=== PATIENT | female | born 1960 | race Caucasian/White ===

== ENCOUNTER 2019-05-05 10:50 | Inpatient (IN) | payer OTHER, BC, SELFPAY ==
[2019-05-05] VITALS (18 sets, daily range): BP systolic 113–142; BP diastolic 62–100; PULSE 61–96; RESP 15–26; TEMP 36.8–37.6; O2SAT 93–100; BMI 25.8
--- NOTE | 2019-05-05 10:53 | ED_ITS ---
Entered by Karena Woodruff, acting as scribe for HPI - Abdominal Pain General: Chief Complaint: Abdominal Pain Stated Complaint: ABD PAIN Time Seen by Provider: 05/05/19 11:06 Source: patient Mode of arrival: EMS Limitations: no limitations History of Present Illness: HPI narrative: 59 yo Female presents to ED with complaint of abdominal pain, nausea, and vomiting. Pt states that she was on the toilet and when she started throwing up she had horrible, screaming pain that will not stop. MD elicited complaint: abdominal pain Pain Consistency: constant Location: Suprapubic Severity: severe Pain scale (0-10): 10 Quality: cramping Exacerbating factors: nothing Relieving factors: nothing Associated Symptoms: Reports nausea and vomiting Review of Systems General: Reports: 10 or more systems reviewed and unremarkable except in HPI and below GI: Reports: abdominal pain, nausea and vomiting PFSH ED PFSH: Statuses (acute, chronic, etc) shown below reflect problem list status as previously entered and may not be historically accurate Medical History (Updated 05/05/19 @ 11:15 by Karena Woodruff) Mitral valve prolapse (Acute) Physical Exam Const: COMMON NORMALS: no apparent distress, average body habitus, oriented x3, no limitations, healthy appearing, alert and well nourished HENMT: COMMON NORMALS: normocephalic, head/scalp atraumatic, hearing grossly normal bilaterally, external ears normal, EAC's normal, TM's normal bilaterally, external nose normal, nasal mucous membranes and turbinates normal, moist oral mucous membranes, oropharynx normal, dentition normal and gingiva normal HEAD & SCALP: normocephalic and atraumatic NOSE: external nose normal and nasal mucous membranes and turbinates normal EXTERNAL EAR: Yes external ears normal EXTERNAL AUDITORY CANAL: EAC's normal TYMPANIC MEMBRANE: TM's normal bilaterally Eye: COMMON NORMALS: PERRL, EOMs intact bilaterally, conjunctivae normal, no scleral icterus, no papilledema, normal visual newberry by confrontation and fundi normal bilaterally CONJUNCTIVA: Yes conjunctivae normal PUPIL: Yes PERRL DIRECT OPHTHALMOSCOPY: Yes no papilledema and Yes fundi normal bilaterally Neck/C-Spine: COMMON NORMALS: full ROM, no lymphadenopathy, supple, no meningeal signs, no JVD, thyroid normal and no carotid bruits THYROID: thyroid normal Chest: COMMONS NORMALS: inspection of chest normal and palpation of chest normal Resp: COMMON NORMALS: normal respiratory effort, no retractions, no use of accessory muscles, clear to auscultation bilaterally and percussion normal AUSCULTATION: clear to auscultation bilaterally PERCUSSION: percussion normal Cardio: COMMON NORMALS: no JVD, regular rate, regular rhythm, S1 normal heart sound, S2 normal heart sound, no gallops, no clicks, no murmurs, no rub and peripheral pulses 2+ throughout RATE: regular rate RHYTHM: regular rhythm HEART SOUNDS: S1 normal and S2 normal PERIPHERAL PULSES: pulses 2+ throughout GI: COMMON NORMALS: normal to inspection, nondistended, normoactive bowel sounds, soft to palpation, non-tender, no hepatosplenomegaly, no masses and no bruits PALPATION: Yes soft and Yes no hepatosplenomegaly : COMMON NORMALS: Yes no CVA tenderness and Yes external appearance normal BLADDER/KIDNEY EXAM: Yes no CVA tenderness Back/Pelvis: COMMON NORMALS: no CVA tenderness, thoracic and lumbar spine normal to inspection, no thoracic nor lumbar tenderness, thoraco-lumbar ROM normal and straight leg raise negative bilaterally Extremity: COMMON NORMALS: normal to inspection, full ROM, normal capillary refill, no joint enlargement, no clubbing, cyanosis or edema, no calf tenderness and no pedal edema Neuro: COMMON NORMALS: oriented x3 SENSORIUM/ORIENTATION: Yes alert MENINGEAL SIGNS: Yes no meningeal signs Skin: COMMON NORMALS: no rashes or lesions noted, no wounds, skin turgor normal, no jaundice, no petechiae and no mottling GENERAL SKIN EXAM: no rashes or lesions noted and turgor normal Course Vital Signs: Vital signs: Vital Signs Temperature 98.4 F 05/05/19 10:54 Pulse Rate 62 05/05/19 11:10 Respiratory Rate 18 05/05/19 11:56 Blood Pressure 136/62 05/05/19 11:10 Pulse Oximetry 98 05/05/19 11:56 MDM - Abdominal Pain Lab Data: Labs: Lab Results 05/05/19 05/05/19 Range/Units 11:42 11:42 WBC 10.0 (4.0-10.0) 10^3/ uL RBC 4.70 (4.1-5.3) 10^6/u L Hgb 14.2 (11.5-15.3) g/dL Hct 43.9 (37.0-47.0) % MCV 93.4 (81-99) fL MCH 30.2 (28.0-34.0) pg MCHC 32.3 (30.0-36.0) g/dL RDW 12.9 (12.1-15.1) % Plt Count 261 (130-400) 10^3/c mm MPV 10.6 H (7.4-10.4) fL Neut % (Auto) 85.1 % Lymph % (Auto) 10.4 % Bel[place]ami % (Auto) 3.8 % Eos % (Auto) 0.2 % Baso % (Auto) 0.3 % Neut # (Auto) 8.6 H (1.8-7.7) 10^3/u L Lymph # (Auto) 1.0 (0.8-4.8) 10^3/u L [place]ami # (Auto) 0.4 (0.2-0.9) 10^3/u L Eos # (Auto) 0.0 (0.0-0.8) 10^3/u L Baso # (Auto) 0.0 (0.0-0.1) 10^3/u L Nucleated RBC % (a uto) 0 % Nucleated RBCs # 0.0 /100WBC Sodium 139 (136-145) mmol/L Potassium 3.6 (3.5-5.1) mmol/L Chloride 101 (98-107) mmol/L Carbon Dioxide 22 (22-29) mmol/L Anion Gap 19.6 H (5-19) BUN 11 (6-20) mg/dL Creatinine 0.8 (0.5-0.9) mg/dL GFR Calculation 73.4 L (90-130) mL/min Glucose 128 H (74-109) mg/dL Calcium 9.9 (8.6-10.0) mg/Dl Total Bilirubin 0.4 (0.15-1.2) mg/dL AST 19 (0-32) U/L ALT 12 (0-33) U/L Alkaline Phosphata se 107 H (35-105) IU/L Creatine Kinase 63 (26-192) U/L Total Protein 6.7 (6.6-8.7) g/dL Albumin 4.6 (3.5-5.2) g/dL Globulin 2.1 (1.3-4.6) g/dL Lipase 21 (13-60) U/L Imaging Data ^: CT Chest/Abd/Pelvis: Radiologist's impression: [facility] [address] [place] [address] CT Scan Report Signed Patient: Kathryn Marcus#: [id number] : 1960Acct:[id number] Age/Sex: 59 / FADM Date: 05/05/19 Loc: ER Attending Dr: Ordering Physician: Billy Estevez DO Date of Service: 05/05/19 Procedure(s): CT angio chest w abd pel w con Accession Number(s): [id number] cc: Billy Estevez DO~ PROCEDURE INFORMATION: Exam: CT Angiography Chest With Contrast Exam date and time: 05/05/2019 10:55 AM Age: 59 years old Clinical indication: Pain; Other: Abd wall; Additional info: Abd pain TECHNIQUE: Imaging protocol: Computed tomographic angiography of the chest with intravenous contrast. 3D rendering: MIP and/or 3D reconstructed images were created by the technologist. Total DLP: 1241.1 mGy-cm Radiation optimization: All CT scans at this facility use at least one of these dose optimization techniques: automated exposure control; mA and/or kV adjustment per patient size (includes targeted exams where dose is matched to clinical indication); or iterative reconstruction. Contrast material: OMNI 350; Contrast volume: 95 ml; Contrast route: RT AC; COMPARISON: No relevant prior studies available. FINDINGS: Pulmonary arteries: Normal. No pulmonary emboli. Aorta: Unremarkable. No aortic aneurysm. No aortic dissection. Lungs: Hyperaerated lungs consistent with mild COPD . Pleural space: Unremarkable. No pneumothorax. No pleural effusion. Heart: Mild calcified coronary artery disease. Spleen: One or more accessory splenules. Kidneys and ureters: Left renal cyst measuring >1.0 cm. Stomach and bowel: Bowel wall thickening in the rectum consistent with mild to moderate proctitis with diverticula versus rectal cancer with perirectal lymphadenopathy. Moderate diverticulosis. Moderate retained feces in redundant sigmoid colon, proximal to the area of rectal bowel wall thickening/rectal narrowing.. Periampullary duodenal diverticulum. Mild bowel wall thickening of the entire colon with or without inflammation in the pericolic fat most consistent with mild infectious colitis versus inflammatory bowel disease. Lymph nodes: Borderline 1.1 cm left periaortic lymphadenopathy, axial series 5, images 155-162. Possible metastatic disease. Bones/joints: Idiopathic S-shaped scoliosis. Moderate to severe multilevel spine degenerative changes including degenerative disc disease, spondylosis and facet degenerative changes. Soft tissues: Unremarkable. Other findings: Examination is limited secondary to motion artifact. One or more calcified pelvic phleboliths. CT/CT angio chest w abd pel w con IMPRESSION: 1. Bowel wall thickening in the rectum consistent with mild to moderate proctitis with diverticula versus rectal cancer with perirectal lymphadenopathy. 2. Moderate retained feces in redundant sigmoid colon, proximal to the area of rectal bowel wall thickening/rectal narrowing.. 3. Borderline 1.1 cm left para-aortic lymphadenopathy, axial series 5, images 155-162. Possible metastatic disease. 4. Mild bowel wall thickening of the entire colon with or without inflammation in the pericolic fat most consistent with mild infectious colitis versus inflammatory bowel disease. Radiation Dose CTDIVOL = (mGy): DLP = 1241.1 (mGy-cm) Dictated By: Saul Hu MD 05/05/19 1158 Signed By: Saul Hu MD 05/05/19 1200 Discharge Plan Discharge Prescriptions: No Action No Known Home Medications RF: 0 Coding Level of Care Code ED Civil Lawyer for Chg Fwd Exam Problem Focused The documentation recorded by the Ranjan melo Carmen, accurately reflects the service I personally performed and the decisions made by Zenaida soni Donald P, DO May 05, 2019 10:50
[2019-05-05] MEDS: fentaNYL 50 mcg/mL INJ 2mL 100 MCG IVP (11:07)
[2019-05-05] MEDS: ondansetron 2 mg/ML SDV 2 mL 4 MG IV (11:08)
[2019-05-05] MEDS: fentaNYL 50 mcg/mL INJ 2mL IVP (11:29)
[2019-05-05] MEDS: ondansetron 2 mg/ML SDV 2 mL 4 MG IVP ×3 (11:31→19:31)
--- NOTE | 2019-05-05 11:36 | USR_ITS ---
PROCEDURE INFORMATION: Exam: US Abdomen Limited, Right Upper Quadrant Exam date and time: 05/05/2019 12:24 PM Age: 59 years old Clinical indication: Abdominal pain; Additional info: Abd pain TECHNIQUE: Imaging protocol: Real-time ultrasound of the abdomen with image documentation. Examination was focused on the right upper quadrant. COMPARISON: No relevant prior studies available. FINDINGS: Liver: 12.6 cm liver. Gallbladder: 2.2 mm gallbladder wall. Common bile duct: 6.8 mm common bile duct which is slightly dilated. MRCP may be helpful to rule out choledocholithiasis or periampullary mass. Pancreas: 2.1 mm pancreatic duct. Right kidney: 11.1 x 4.4 x 4.4 cm right kidney. 1 cm right renal cortex. Inferior vena cava: 2.2 cm IVC. US/US gall bladder 34855 IMPRESSION: 6.8 mm common bile duct which is slightly dilated. MRCP may be helpful to rule out choledocholithiasis or periampullary mass.
[2019-05-05 11:50] LABS: Basophils % 0.3 %; Eosinophils % 0.2 %; Hematocrit 43.9 % (37.0-47.0); Hemoglobin 14.2 g/dL (11.5-15.3); Lymphocytes % 10.4 %; Mean Corpuscular HGB Conc 32.3 g/dL (30.0-36.0); Mean Corpuscular Hemoglobin 30.2 pg (28.0-34.0); Mean Corpuscular Volume 93.4 fL (81-99); Mean Platelet Volume 10.6 fL (7.4-10.4); Monocytes # 0.4 10^3/uL (0.2-0.9); Monocytes % 3.8 %; Neutrophils # 8.6 10^3/uL (1.8-7.7); Neutrophils % 85.1 %; Nucleated Red Blood Cells % 0 %; Platelet Count 261 10^3/cmm (130-400); Red Cell Distribution Width 12.9 % (12.1-15.1)
[2019-05-05] MEDS: HYDROmorphone 1 mg/mL INJ 1 mL IVP ×4 (11:56→19:31)
[2019-05-05 12:10] LABS: Alanine Aminotransferase 12 U/L (0-33); Albumin Level 4.6 g/dL (3.5-5.2); Alkaline Phosphatase 107 IU/L (35-105); Anion Gap 19.6 (5-19); Aspartate Amino Transferase 19 U/L (0-32); Blood Urea Nitrogen 11 mg/dL (6-20); Calcium 9.9 mg/Dl (8.6-10.0); Carbon Dioxide 22 mmol/L (22-29); Chloride 101 mmol/L (98-107); Creatine Phosphokinase 63 U/L (26-192); Globulin 2.1 g/dL (1.3-4.6); Glomerular Filtration Rate 73.4 mL/min (90-130); Glucose 128 mg/dL (74-109); Lipase 21 U/L (13-60); Potassium 3.6 mmol/L (3.5-5.1); Sodium 139 mmol/L (136-145); Total Bilirubin 0.4 mg/dL (0.15-1.2); Total Protein 6.7 g/dL (6.6-8.7)
[2019-05-05 12:11] LABS: Lactate (Lactic Acid level) 2.8 mmol/L (0.5-2.2)
[2019-05-05 13:16] LABS: Bilirubin Urine Neg (NEGATIVE); Blood Urine Neg (Negative); Glucose Urine UA Norm (Normal); Ketones Urine Negative (Negative); Leukocyte Esterase Urine Negative (Negative); Nitrate Urine Negative (Negative); Protein Urine Neg (Negative); Sulfosalicylic Acid Urine Negative; Urine Appearance Clear (CLEAR); Urine Color Yellow (Yellow); Urobilinogen Urine Norm (Negative); pH Urine 9 (5-7)
[2019-05-05 13:18] LABS: Add Urine Culture? No; Mucus Urine 1+; Squamous Epithelial Cell Urine 0-4 (0-5)
[2019-05-05 13:49] LABS: Carcinoembryonic Antigen 14.4 ng/mL (0.0-4.7)
[2019-05-05] MEDS: iohexol 350 mg/mL 100 mL Btl IV (14:20)
[2019-05-05] MEDS: morphine 4 mg/mL SDV 1 mL 2 MG IV ×2 (14:28→22:32)
--- NOTE | 2019-05-05 14:29 | PM.HP ---
Providers/Chief Complaint Admitting Physician: Dave Rodriguez MD Chief Complaint: ABD PAIN History of Present Illness Kathryn Marcus is a 59 year old female with a past medical history of gout who presents to the emergency room for a 6-week history of abdominal pain, constipation, rectal pain. Patient states that 6 weeks ago, she started to develop constipation, normally she has a few bowel movements a day, she stated that she started to develop very thin soft bowel movements, difficult to pass, feelings of incomplete emptying, bowel movements with blood, generalized abdominal pain. Patient states that her symptoms persisted for the last 6 weeks, were intermittent, but became more frequent, such that she would have extreme difficulty passing bowel movements, very thin bowel movements, regular bloody bowel movements, poor appetite, malaise, abdominal pain. Denies history of colonoscopy. Denies family history of colon cancer. Denies history of ulcerative colitis or Crohn's disease. Denies difficulty swallowing. Denies painful swallowing. Drinks plenty of water. Drinks well water. No recent fever cough infection. No recent sick contacts. No history of food poisoning. Patient states that in the last 24 hours pain became very severe, very painful bowel movements, but patient states that oddly the bowel her bowel movements are fairly soft and thin. Is never had an issue with constipation or bloody bowel movements in the past. Has not seen her primary care physician in many years. In the emergency room as patient was having severe abdominal pain radiating to the back, she was taken immediately to the CT to rule out abdominal aortic aneurysm, no abdominal aortic aneurysm, was wall was found to have rectal thickening with proctitis, bowel wall thickening, moderate stool retention, and periaortic lymphadenopathy. She was given fentanyl and Dilaudid, but still in significant pain. Review of Systems Const: Reports: change in appetite and malaise; Denies: fever or chills ENMT: Denies: painful swallowing or nasal discharge Card: Denies: chest pain Resp: Denies: shortness of breath, productive cough or non-productive cough GI: Reports: abdominal pain, nausea, feeling full early, constipation, cramping, change in bowel habits, painful bowel movements, rectal pain, change in stool character, blood in stool and mucus in stool; Denies: vomiting, vomiting blood, coffee grounds in vomit, difficulty swallowing, heartburn/indigestion, diarrhea, bloating, belching, fecal incontinence, rectal swelling, rectal itching or black tarry stool : Denies: flank pain Musc: Reports: back pain Skin/Breast: Denies: rash Neuro: Reports: dizziness; Denies: headache Endo: Reports: excessive thirst; Denies: excessive urination Coy/Lymph: Denies: easy bruising Medications/Allergies Home Medications Medication Instructions Recorded Confirmed Last Taken Type No Known Home Medications 05/05/19 05/05/19 Unknown History Allergies Allergy/AdvReac Type Severity Reaction Status Date / Time Penicillins Allergy ALGY-Anaphy Verified 05/05/19 11:06 laxis PFSH Acute PFSH: Statuses (acute, chronic, etc) shown below reflect problem list status as previously entered and may not be historically accurate Medical History (Updated 05/05/19 @ 14:43 by Dave Rodriguez MD) Gout (Acute) Mitral valve prolapse (Acute) Surgical History (Updated 05/05/19 @ 14:36 by Dave Rodriguez MD) History of appendectomy (Acute) History of bilateral tubal ligation (Acute) Family History (Updated 05/05/19 @ 14:37 by Dave Rodriguez MD) Other CAD (coronary artery disease) Denies family history of Diabetes Hyperlipidemia Cancer Hypertension Social History (Updated 05/05/19 @ 14:37 by Dave Rodriguez MD) Smoking and tobacco status: never smoked Alcohol intake: current Alcohol intake frequency: holidays/special occasions only Substance/Drug Use: never Vitals/I&O/Wt Last Vital Signs Temp 98.7 F 05/05/19 14:10 Pulse 86 05/05/19 14:10 Resp 22 H 05/05/19 14:10 BP 142/86 05/05/19 14:10 Pulse Ox 94 05/05/19 14:10 Weight last 48 hrs Weight 79.379 kg Physical Exam Const: EXAM LIMITATIONS: no altered mental status GENERAL APPEARANCE: cooperative and in distress (Lying in bed, holding her abdomen with, abdominal pain) HENMT: COMMON NORMALS: normocephalic Eye: COMMON NORMALS: PERRL and EOMs intact bilaterally Neck/C-Spine: COMMON NORMALS: no lymphadenopathy and no JVD Lymph: LYMPHATIC: no lymphadenopathy noted Resp: COMMON NORMALS: normal respiratory effort, no use of accessory muscles and clear to auscultation bilaterally Cardio: COMMON NORMALS: no JVD, S1 normal heart sound, S2 normal heart sound and no gallops GI: COMMON NORMALS: normal to inspection, nondistended, normoactive bowel sounds INSPECTION: Yes abdominal distension AUSCULTATION: Yes hypoactive bowel sounds PALPATION: Yes tender Details: LLQ, RLQ, LUQ and RUQ and Yes no hepatosplenomegaly : COMMON NORMALS: Yes no CVA tenderness Back/Pelvis: THORACIC SPINE/UPPER BACK: Yes normal to inspection LUMBAR SPINE/LOWER BACK: Yes lumbar spinal tenderness and Yes paraspinal muscle tenderness Extremity: COMMON NORMALS: normal capillary refill, no clubbing, cyanosis or edema and no pedal edema Neuro: COMMON NORMALS: oriented x3, CN's II-XII intact bilaterally and moves all extremities Psych: COMMON NORMALS: mental status grossly normal and thought process normal Skin: COMMON NORMALS: no rashes or lesions noted Data Imaging^: CT Abd/Pel: Radiologist's impression: 1. Bowel wall thickening in the rectum consistent with mild to moderate proctitis with diverticula versus rectal cancer with perirectal lymphadenopathy. 2. Moderate retained feces in redundant sigmoid colon, proximal to the area of rectal bowel wall thickening/rectal narrowing.. 3. Borderline 1.1 cm left para-aortic lymphadenopathy, axial series 5, images 155-162. Possible metastatic disease. 4. Mild bowel wall thickening of the entire colon with or without inflammation in the pericolic fat most consistent with mild infectious colitis versus inflammatory bowel disease. A&P Assessment and plan (1) Abdominal pain: - CT scan showed 1.Bowel wall thickening in the rectum consistent with mild to moderate proctitis with diverticula versus rectal cancer with perirectal lymphadenopathy. 2. Moderate retained feces in redundant sigmoid colon, proximal to the area of rectal bowel wall thickening/rectal narrowing.. 3. Borderline 1.1 cm left para-aortic lymphadenopathy, axial series 5, images 155-162. Possible metastatic disease. 4. Mild bowel wall thickening of the entire colon with or without inflammation in the pericolic fat most consistent with mild infectious colitis versus inflammatory bowel disease. -Clinically patient has thin stools, bloody stools, feeling of incomplete emptying, constipation, severe abdominal pain -CEA is 14.4 -Findings are highly concerning for rectal cancer -No family history of rectal or colon cancer, no family history or personal history of ulcerative colitis or Crohn's disease Plan: -Surgery on consult, hopefully colonoscopy in the next 48 hours -We will try MiraLAX, rectal suppositories -Pain control -IV fluids -Clear liquid diet Status: Acute Code(s): R10.9 - Unspecified abdominal pain Attestations Medical Necessity Statement*: Patient requires hospitalization, inpatient, greater than 2 midnights for abdominal pain secondary to bowel wall thickening, prostatitis, rectal thickening, possible rectal cancer Coding Level of Care Code Acute Market Risk Manager for Michael Lilly Diagnoses Abdominal pain R10.9
[2019-05-05] MEDS: dextrose 5%-sod chloride 0.9% 1,000 ML 100 ML IV ×2 (14:30→16:48)
[2019-05-05 15:03] LABS: C Reactive Protein 14.4 mg/L (0.0-4.9)
[2019-05-05 15:56] LABS: Erythrocyte Sedimentation Rate 12 mm/hr (0-15)
[2019-05-05] MEDS: enoxaparin 40 mg/0.4 mL Syringe SUBCUT (16:41)
[2019-05-05] MEDS: Fleet Enema 133 mL Enema 118 ML PR (16:49)
[2019-05-05] MEDS: mineral oil ENEMA 133 mL PR (19:47)
[2019-05-05] MEDS: acetaminophen 325 mg Tablet 650 MG PO (22:31)
[2019-05-06] VITALS (14 sets, daily range): BP systolic 101–109; BP diastolic 59–71; PULSE 90–95; RESP 17–22; TEMP 36.9–38.2; O2SAT 95–100
[2019-05-06] MEDS: dextrose 5%-sod chloride 0.9% 1,000 ML 100 ML IV ×2 (01:03→12:29)
[2019-05-06] MEDS: HYDROmorphone 1 mg/mL INJ 1 mL IVP ×4 (01:10→17:50)
[2019-05-06] MEDS: ondansetron 2 mg/ML SDV 2 mL 4 MG IVP ×4 (01:25→17:50)
[2019-05-06] MEDS: morphine 4 mg/mL SDV 1 mL 2 MG IV ×3 (05:33→14:00)
[2019-05-06 06:39] LABS: Basophils % 0.2 %; Hematocrit 40.3 % (37.0-47.0); Hemoglobin 13.1 g/dL (11.5-15.3); Lymphocytes # 0.9 10^3/uL (0.8-4.8); Lymphocytes % 4.7 %; Mean Corpuscular HGB Conc 32.5 g/dL (30.0-36.0); Mean Corpuscular Hemoglobin 30.7 pg (28.0-34.0); Mean Corpuscular Volume 94.4 fL (81-99); Monocytes # 0.8 10^3/uL (0.2-0.9); Monocytes % 4.2 %; Neutrophils # 17.8 10^3/uL (1.8-7.7); Neutrophils % 90.4 %; Nucleated Red Blood Cells % 0 %; Platelet Count 202 10^3/cmm (130-400); Red Blood Count 4.27 10^6/uL (4.1-5.3); Red Cell Distribution Width 13.2 % (12.1-15.1); White Blood Count 19.7 10^3/uL (4.0-10.0)
[2019-05-06 07:00] LABS: Alanine Aminotransferase 11 U/L (0-33); Albumin Level 3.6 g/dL (3.5-5.2); Alkaline Phosphatase 97 IU/L (35-105); Anion Gap 13.8 (5-19); Aspartate Amino Transferase 20 U/L (0-32); Blood Urea Nitrogen 10 mg/dL (6-20); Carbon Dioxide 26 mmol/L (22-29); Chloride 101 mmol/L (98-107); Globulin 2.8 g/dL (1.3-4.6); Glomerular Filtration Rate 64.1 mL/min (90-130); Glucose 126 mg/dL (74-109); Magnesium 2.2 mg/dL (1.7-2.3); Phosphorus 3.3 mg/dL (2.5-4.5); Potassium 3.8 mmol/L (3.5-5.1); Sodium 137 mmol/L (136-145); Total Bilirubin 0.5 mg/dL (0.15-1.2); Total Protein 6.4 g/dL (6.6-8.7)
[2019-05-06 07:38] LABS: Procalcitonin 0.85 ng/mL (0-0.8)
[2019-05-06] MEDS: polyethylene glycol 3350 Pkt 17 gm PO (08:57)
[2019-05-06] MEDS: docusate sodium 100 mg Capsule PO (08:57)
--- NOTE | 2019-05-06 11:08 | PM.CONSULT ---
Providers/Reason For Consult Consulting Physican/Specialty*: Dave Rodriguez MD Reason for Consult*: Abdominal pain with constipation Attending Physician: Dave Rodriguez MD History of Present Illness History of Present Illness Kathryn Marcus is a 59 year old female who presented to the ER yesterday with worsening generalized abdominal pain and constipation. Patient states that until about 2 months ago she used to have 2-3 bowel movements a day but recently has been a bowel movement every other day. Patient denies any fevers chills. She states that she has noticed blood in the stools but she attributed to her hemorrhoids. Patient denies any family history of colon cancer. No prior colonoscopy. She states that she is lost about 20 to 30 pounds. She was admitted overnight with the goal of trying to perform a bowel prep with plan for colonoscopy. Unfortunately today her abdominal pain worsened and her white count went up from 10 K to 19 K. Review of Systems Const: Denies: fever, chills, change in weight or fatigue Eyes: Denies: change in vision ENMT: Denies: painful swallowing Card: Denies: chest pain Resp: Denies: shortness of breath : Denies: painful urination Skin/Breast: Denies: rash, nipple discharge or breast mass/lump Neuro: Denies: seizure-like activity Coy/Lymph: Denies: easy bruising Meds/Allergies Home Medications and Allergies Home Medications Medication Instructions Recorded Confirmed Type No Known Home Medications 05/05/19 05/05/19 History Allergies Allergy/AdvReac Type Severity Reaction Status Date / Time Penicillins Allergy ALGY-Anaphy Verified 05/05/19 11:06 laxis Current Medications Current Medications Generic Name Dose Route Start Last Admin Trade Name Freq PRN Reason Stop Dose Admin Acetaminophen 650 mg 05/05/19 15:45 05/05/19 22:31 Tylenol PO 650 mg Q6H PRN Administration Mild/Mod Pain Or Temp >/= 101 Docusate Sodium 100 mg 05/06/19 09:00 05/06/19 08:57 Colace PO 100 mg DAILY SUSAN Administration Enoxaparin Sodium 40 mg 05/05/19 16:00 05/05/19 16:41 Lovenox SUBCUT 40 mg Q24H SUSAN Administration Hydromorphone HCl 1 mg 05/05/19 16:15 05/06/19 08:54 Dilaudid Inj IVP 1 mg Q2H PRN Administration BREAKTHROUGH PAIN Dextrose/Sodium Chloride 1,000 mls @ 100 mls/hr 05/05/19 15:45 05/06/19 05:24 Dextrose 5%-Sod Chloride 0.9% IV 100 mls/hr .Q10H SUSAN Infusion Morphine Sulfate 2 mg 05/05/19 15:50 05/06/19 09:34 Morphine IV 2 mg Q4H PRN Administration SEVERE PAIN Ondansetron HCl 4 mg 05/06/19 01:19 05/06/19 09:35 Zofran IVP 4 mg Q4H PRN Administration vomiting, or N/V if npo Polyethylene Glycol 17 gm 05/06/19 09:00 05/06/19 08:57 Miralax PO 17 gm DAILY SUSAN Administration PFSH Acute PFSH: Statuses (acute, chronic, etc) shown below reflect problem list status as previously entered and may not be historically accurate Medical History Gout (Acute) Mitral valve prolapse (Acute) Surgical History History of appendectomy (Acute) History of bilateral tubal ligation (Acute) Family History Other CAD (coronary artery disease) Denies family history of Diabetes Hyperlipidemia Cancer Hypertension Social History Smoking and tobacco status: never smoked Alcohol intake: current Alcohol intake frequency: holidays/special occasions only Substance/Drug Use: never Vitals/I&O/Wt Last Vital Signs Temp 99.0 F 05/06/19 07:47 Pulse 90 05/06/19 07:47 Resp 17 05/06/19 09:34 BP 104/64 05/06/19 07:47 Pulse Ox 98 05/06/19 09:34 05/05/19 05/06/19 05/06/19 22:59 06:59 14:59 Intake Total 671.667 / 1555.000 883.333 / 1555.000 220 / 220 Output Total 200 / 200 Balance 671.667 / 1555.000 883.333 / 1555.000 Weight last 48 hrs Weight 175 lb Physical Exam Narrative: EXAM NARRATIVE: HEENT: Normocephalic Eye: Sclera /conjunctiva normal Respiratory and chest: Bilateral clear breath sounds on auscultation Cardiovascular: Normal S1 and S2 heart sounds Abdomen: Soft, nondistended, tender in the left lower quadrant with guarding Neurological: Oriented to place person and time Skin: Intact, no lesions appreciated on gross exam Data Micro: Micro: Microbiology 05/05/19 17:49 Occult Blood (FIT) - Final Stool Imaging^: CT Abd/Pel: My impression: Radiologist's impression: PROCEDURE INFORMATION: Exam: CT Angiography Chest With Contrast Exam date and time: 05/05/2019 10:55 AM Age: 59 years old Clinical indication: Pain; Other: Abd wall; Additional info: Abd pain TECHNIQUE: Imaging protocol: Computed tomographic angiography of the chest with intravenous contrast. 3D rendering: MIP and/or 3D reconstructed images were created by the technologist. Total DLP: 1241.1 mGy-cm Radiation optimization: All CT scans at this facility use at least one of these dose optimization techniques: automated exposure control; mA and/or kV adjustment per patient size (includes targeted exams where dose is matched to clinical indication); or iterative reconstruction. Contrast material: OMNI 350; Contrast volume: 95 ml; Contrast route: RT AC; COMPARISON: No relevant prior studies available. FINDINGS: Pulmonary arteries: Normal. No pulmonary emboli. Aorta: Unremarkable. No aortic aneurysm. No aortic dissection. Lungs: Hyperaerated lungs consistent with mild COPD . Pleural space: Unremarkable. No pneumothorax. No pleural effusion. Heart: Mild calcified coronary artery disease. Spleen: One or more accessory splenules. Kidneys and ureters: Left renal cyst measuring >1.0 cm. Stomach and bowel: Bowel wall thickening in the rectum consistent with mild to moderate proctitis with diverticula versus rectal cancer with perirectal lymphadenopathy. Moderate diverticulosis. Moderate retained feces in redundant sigmoid colon, proximal to the area of rectal bowel wall thickening/rectal narrowing.. Periampullary duodenal diverticulum. Mild bowel wall thickening of the entire colon with or without inflammation in the pericolic fat most consistent with mild infectious colitis versus inflammatory bowel disease. Lymph nodes: Borderline 1.1 cm left periaortic lymphadenopathy, axial series 5, images 155-162. Possible metastatic disease. Bones/joints: Idiopathic S-shaped scoliosis. Moderate to severe multilevel spine degenerative changes including degenerative disc disease, spondylosis and facet degenerative changes. Soft tissues: Unremarkable. Other findings: Examination is limited secondary to motion artifact. One or more calcified pelvic phleboliths. 1. Bowel wall thickening in the rectum consistent with mild to moderate proctitis with diverticula versus rectal cancer with perirectal lymphadenopathy. 2. Moderate retained feces in redundant sigmoid colon, proximal to the area of rectal bowel wall thickening/rectal narrowing.. 3. Borderline 1.1 cm left para-aortic lymphadenopathy, axial series 5, images 155-162. Possible metastatic disease. 4. Mild bowel wall thickening of the entire colon with or without inflammation in the pericolic fat most consistent with mild infectious colitis versus inflammatory bowel disease. A&P Assessment and plan (1) Abdominal pain: This a 59-year-old female who presents to the ER with abdominal pain and constipation associated weight loss. Patient had findings concerning for possible mass/proctitis in the sigmoid/rectal region. Today she has a more tender abdomen associated with leukocytosis. We will therefore obtain a urgent CT abdomen and pelvis to rule out a perforation. If there is a perforation with an associated possible rectal mass, she would need transferred to [place] for evaluation by colorectal surgeon. 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
--- NOTE | 2019-05-06 12:24 | CT_ITS ---
WS: [id number] CT ABDOMEN PELVIS TECHNIQUE: Noncontrast CT of the abdomen and pelvis with coronal and sagittal reformatted images. CLINICAL INFORMATION: abdominal pain r/o perforation COMPARISON: Ultrasound gallbladder 1 DLP: 723.[address] scans at [facility] use at least one of these dose optimization techniques: automat ed exposure control; mA and/or kV adjustment per patient size (includes targeted exams where dose is matched to clinical indication); or iterative reconstruction. FINDINGS: Vicarious contrast excretion into the gallbladder from recent CTA. Noncontrast liver is normal. Promi nent pancreatic duct and common bile duct. This is unchanged from previous. No evidence of choledocho lithiasis or periampullary mass or lesion. Pancreatic head otherwise appears normal. 9 mm left periao rtic lymph node is unchanged. Small splenule. Tortuous sigmoid colon. Diffuse thickening and inflammatory stranding involving the distal descending left colon and sigmoid colon suspicious for infectious or inflammatory colitis or diverticulitis sim ilar to the prior examination. Suspected perforated diverticular abscess adjacent to the sigmoid colo n in the lower pelvis measuring 6.3 x 7.7 cm with air-fluid level. This is suspected to be extralumin al. This is adjacent to the sigmoid colon without definite continuity. Anatomy can be better defined with oral contrast. This is slightly smaller compared to yesterday. Small amount of free fluid in the pelvis. Lung bases are well aerated. Adrenal glands are normal. No hydronephrosis. Noncontrast spleen is norm al. Small esophageal hiatal hernia. No periaortic lymphadenopathy. Diffuse rectal wall thickening wit h multiple enlarged perirectal lymph nodes consistent with proctitis. Rectal neoplasm should be exclu ded. Perirectal lymphadenopathy. Inflammatory stranding and induration in the perirectal fat. Rectal wall thickening appears improved today. Persistent but slightly improved sigmoid constipation. Notified Dave Rodriguez MD at 05/06/2019 2:[address]/CT abdomen pelvis wo con [id number] IMPRESSION: 1. No evidence of choledocholithiasis or periampullary mass. 2. Suspected perforated diverticulitis with diverticular abscess measuring 6.3 x 7.7 CM. Dependent Air-fluid level in this area. This is slightly smaller com pared to yesterday. Exam could be repeated with oral contrast to better define anatomy 3. Again seen is diffuse rectal wall thickening which is improved from previou s with surrounding inflammatory stranding and edema in the perirectal fat and p ludiivna consistent with sigmoid colitis/diverticulitis and proctitis. 4. Multiple enlarged perirectal lymph nodes. Rectal neoplasm should be exclude d after treatment. 5. Slightly prominent left periaortic lymph node measuring 9 mm unchanged. 6. Small esophageal hiatal hernia. 7. Vicarious excretion of contrast in the gallbladder from recent CTA.
[2019-05-06] MEDS: ciprofloxacin 400 MG/200 ML PREMIX 200 MG IV (13:07)
[2019-05-06] MEDS: promethazine 25 mg/mL SDV 1 mL 12.5 MG IM (14:01)
--- NOTE | 2019-05-06 14:12 | P.TS_ITS ---
Transfer Summary Providers Date of Admission: 05/05/19 12:33 Date of Discharge: 05/06/19 Attending Provider at Admission: Dave Rodriguez MD Attending Provider at Transfer: Dave Rodriguez MD Anticipated Date of Transfer: Anticipated date of transfer: 05/06/19 Receiving Facility & Provider: Receiving Provider: [] Receiving facility: [] Diagnoses at Discharge Discharge Diagnosis (1) Rectal cancer: Status: Acute (2) Perforated diverticulum: Status: Acute Reason for Visit Reason for Visit: Reason For Visit: ABD PAIN Hospital Course Discharge Summary: Kathryn Marcus is a 59 year old female with a past medical history of gout who presents to the emergency room for a 6-week history of abdominal pain, constipation, rectal pain. Patient states that 6 weeks ago, she started to develop constipation, normally she has a few bowel movements a day, she stated that she started to develop very thin soft bowel movements, difficult to pass, feelings of incomplete emptying, bowel movements with blood, generalized abdominal pain. Patient states that her symptoms persisted for the last 6 weeks, were intermittent, but became more frequent, such that she would have extreme difficulty passing bowel movements, very thin bowel movements, regular bloody bowel movements, poor appetite, malaise, abdominal pain. Denies history of colonoscopy. Denies family history of colon cancer. Denies history of ulcerative colitis or Crohn's disease. Denies difficulty swallowing. Denies painful swallowing. Drinks plenty of water. Drinks well water. No recent fever cough infection. No recent sick contacts. No history of food poisoning. Patient states that in the last 24 hours pain became very severe, very painful bowel movements, but patient states that oddly the bowel her bowel movements are fairly soft and thin. Is never had an issue with constipation or bloody bowel movements in the past. Has not seen her primary care physician in many years. In the emergency room as patient was having severe abdominal pain radiating to the back, she was taken immediately to the CT to rule out abdominal aortic aneurysm, no abdominal aortic aneurysm, was wall was found to have 1.Bowel wall thickening in the rectum consistent with mild to moderate proctitis with diverticula versus rectal cancer with perirectal lymphadenopathy. 2. Moderate retained feces in redundant sigmoid colon, proximal to the area of rectal bowel wall thickening/rectal narrowing.. 3. Borderline 1.1 cm left para-aortic lymphadenopathy, axial series 5, images 155-162. Possible metastatic disease. 4. Mild bowel wall thickening of the entire colon with or without inflammation in the pericolic fat most consistent with mild infectious colitis versus inflammatory bowel disease. On admission, patient was found to have no significant fevers, no hypotension, no tachycardia, her CEA was 15, patient was admitted for abdominal pain, fecal impaction secondary to possible rectal cancer. Surgery was consulted advised of IV hydration, pain control, bowel regimen, and plan for colonoscopy. However the next morning, patient had worsening abdominal pain nausea, had 1 soft bowel movement, developed fevers, and leukocytosis of 19,000, repeat CT scan of her abdomen showed 1. Suspected perforated diverticulitis with diverticular abscess measuring 6.3 x 7.7 CM. Dependent Air-fluid level in this area. This is slightly smaller compared to yesterday. Exam could be repeated with oral contrast to better define anatomy 2. Again seen is diffuse rectal wall thickening which is improved from previous with surrounding inflammatory stranding and edema in the perirectal fat and pelvis consistent with sigmoid colitis/diverticulitis and proctitis. 3. Multiple enlarged perirectal lymph nodes. Rectal neoplasm should be excluded after treatment. 4. Slightly prominent left periaortic lymph node measuring 9 mm unchanged Surgery, Dr. Goff, was concerned for perforated rectal cancer, he advised to transfer for higher level of care, she was started on ciprofloxacin and Flagyl, [facility] was called for transfer, Dr. Burch accepted the transfer, patient was transferred by air [facility] to [facility]. Physical Exam Const: COMMON NORMALS: oriented x3 EXAM LIMITATIONS: no altered mental status GENERAL APPEARANCE: cooperative and in distress (Lying in bed, holding her abdomen with, abdominal pain) HENMT: COMMON NORMALS: normocephalic HEAD & SCALP: normocephalic Eye: COMMON NORMALS: PERRL and EOMs intact bilaterally PUPIL: Yes PERRL Neck/C-Spine: COMMON NORMALS: no lymphadenopathy and no JVD Lymph: LYMPHATIC: no lymphadenopathy noted Resp: COMMON NORMALS: normal respiratory effort, no use of accessory muscles and clear to auscultation bilaterally AUSCULTATION: clear to auscultation bilaterally Cardio: COMMON NORMALS: no JVD, S1 normal heart sound, S2 normal heart sound and no gallops HEART SOUNDS: S1 normal and S2 normal GI: COMMON NORMALS: normal to inspection, nondistended, normoactive bowel sounds and no hepatosplenomegaly INSPECTION: Yes abdominal distension AUSCULTATION: Yes hypoactive bowel sounds PALPATION: Yes tender and Yes no hepatosplenomegaly : COMMON NORMALS: Yes no CVA tenderness BLADDER/KIDNEY EXAM: Yes no CVA tenderness Back/Pelvis: COMMON NORMALS: no CVA tenderness THORACIC SPINE/UPPER BACK: Yes normal to inspection LUMBAR SPINE/LOWER BACK: Yes lumbar spinal tenderness and Yes paraspinal muscle tenderness Extremity: COMMON NORMALS: normal capillary refill, no clubbing, cyanosis or edema and no pedal edema Neuro: COMMON NORMALS: oriented x3, CN's II-XII intact bilaterally and moves all extremities Psych: COMMON NORMALS: mental status grossly normal and thought process normal THOUGHT PROCESS: normal thought process Skin: COMMON NORMALS: no rashes or lesions noted GENERAL SKIN EXAM: no rashes or lesions noted TS Data Data Completed and Pending: Completed Studies During Hospitalization Category Date Time Status CT angio chest w abd pel w con Urge nt Cat Scan 05/05/19 10:53 Completed US gall bladder 7 [id number] Urgent Ultrasound 05/05/19 11:36 Completed Pending at discharge Category Date Time Status CT abdomen pelvis wo con [id number] Stat Cat Scan 05/06/19 12:24 Taken Calprotectin Feca l Stat Lab 05/05/19 17:49 Received Complete Blood Co unt w/Auto AM LABS Lab 05/07/19 04:00 Ordered Complete Blood Co unt w/Auto AM LABS Lab 05/08/19 04:00 Ordered Comprehensive Met abolic Panel AM LA BS Lab 05/07/19 04:00 Ordered Comprehensive Met abolic Panel AM LA BS Lab 05/08/19 04:00 Ordered Magnesium AM LABS Lab 05/07/19 04:00 Ordered Magnesium AM LABS Lab 05/08/19 04:00 Ordered Phosphorus AM LAB S Lab 05/07/19 04:00 Ordered Phosphorus AM LAB S Lab 05/08/19 04:00 Ordered Procalcitonin AM LABS Lab 05/07/19 04:00 Ordered Procalcitonin AM LABS Lab 05/08/19 04:00 Ordered Labs from last 24 hours 05/06/19 05/06/19 05/05/19 06:09 06:09 11:42 WBC 19.7 H RBC 4.27 Hgb 13.1 Hct 40.3 MCV 94.4 MCH 30.7 MCHC 32.5 RDW 13.2 Plt Count 202 MPV 11.0 H Neut % (Auto) 90.4 Lymph % (Auto) 4.7 Emmet % (Auto) 4.2 Eos % (Auto) 0.0 Baso % (Auto) 0.2 Neut # (Auto) 17.8 H Lymph # (Auto) 0.9 Emmet # (Auto) 0.8 Eos # (Auto) 0.0 Baso # (Auto) 0.0 Nucleated RBC % (a uto) 0 Nucleated RBCs # 0.0 ESR Sodium 137 Potassium 3.8 Chloride 101 Carbon Dioxide 26 Anion Gap 13.8 BUN 10 Creatinine 0.9 GFR Calculation 64.1 L Glucose 126 H Calcium 9.0 Phosphorus 3.3 Magnesium 2.2 Total Bilirubin 0.5 AST 20 ALT 11 Alkaline Phosphata se 97 C-Reactive Protein 14.4 H Total Protein 6.4 L Albumin 3.6 Globulin 2.8 Carcinoembryonic A g Procalcitonin 0.85 H 05/05/19 05/05/19 11:42 11:42 WBC RBC Hgb Hct MCV MCH MCHC RDW Plt Count MPV Neut % (Auto) Lymph % (Auto) Emmet % (Auto) Eos % (Auto) Baso % (Auto) Neut # (Auto) Lymph # (Auto) Emmet # (Auto) Eos # (Auto) Baso # (Auto) Nucleated RBC % (a uto) Nucleated RBCs # ESR 12 Sodium Potassium Chloride Carbon Dioxide Anion Gap BUN Creatinine GFR Calculation Glucose Calcium Phosphorus Magnesium Total Bilirubin AST ALT Alkaline Phosphata se C-Reactive Protein Total Protein Albumin Globulin Carcinoembryonic A g 14.4 H Procalcitonin Vitals: Last Vital Signs Temp 98.7 F 05/06/19 11:53 Pulse 91 05/06/19 11:53 Resp 18 05/06/19 14:00 BP 109/67 05/06/19 11:53 Pulse Ox 100 05/06/19 11:53 TS Medications Medications Home Medications No Known Home Medications 05/05/19 [History Confirmed 05/05/19] Active Medications Acetaminophen (Tylenol) 650 mg PO Q6H PRN PRN Reason: Mild/Mod Pain Or Temp >/= 101 Last Admin: 05/05/19 22:31 Dose: 650 mg Documented by: Docusate Sodium (Colace) 100 mg PO DAILY [facility] Last Admin: 05/06/19 08:57 Dose: 100 mg Documented by: Enoxaparin Sodium (Lovenox) 40 mg SUBCUT Q24H [facility] Last Admin: 05/05/19 16:41 Dose: 40 mg Documented by: Hydromorphone HCl (Dilaudid Inj) 1 mg IVP Q2H PRN PRN Reason: BREAKTHROUGH PAIN Last Admin: 05/06/19 12:26 Dose: 1 mg Documented by: Dextrose/Sodium Chloride (Dextrose 5%-Sod Chloride 0.9%) 1,000 mls @ 100 mls/hr IV .Q10H [facility] Last Admin: 05/06/19 12:29 Dose: 100 mls/hr Documented by: Ciprofloxacin/Dextrose (Cipro) 400 mg in 200 mls @ 200 mls/hr IV Q12H [facility]; Protocol Last Admin: 05/06/19 13:07 Dose: 200 mls/hr Documented by: Metronidazole (Flagyl Iv) 100 mls @ 100 mls/hr IV Q8H [facility] Metoclopramide HCl (Reglan) 5 mg IV Q6H PRN PRN Reason: NAUSEA AND VOMITING Morphine Sulfate (Morphine) 2 mg IV Q4H PRN PRN Reason: SEVERE PAIN Last Admin: 05/06/19 14:00 Dose: 2 mg Documented by: Ondansetron HCl (Zofran) 4 mg IVP Q4H PRN PRN Reason: vomiting, or N/V if npo Last Admin: 05/06/19 09:35 Dose: 4 mg Documented by: Polyethylene Glycol (Miralax) 17 gm PO DAILY [facility] Last Admin: 05/06/19 08:57 Dose: 17 gm Documented by: Promethazine HCl (Phenergan) 12.5 mg IM Q6H PRN PRN Reason: NAUSEA Last Admin: 05/06/19 14:01 Dose: 12.5 mg Documented by: Discharge Plan Discharge Patient Disposition: Xfer Other Condition: Stable Prescriptions: No Action No Known Home Medications RF: 0 Discharge Orders: Discharge Order (Routine); Ordered 05/06/19 Ordered By: Dave Rodriguez Referrals: Ciera Jeff MD [Family Provider] - Transfer Attestations Time Spent in Transfer Care*: less than 30 min Quality Metrics Clinical Quality Measures: During this hospital stay, did patient experience: None Coding Level of Care Code 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
== END 2019-05-06 18:03 | disposition short-term general hospital (02) | DRG 392 ==
LOC: ER 11:11 → MEDSURG 13:12
PROVIDERS: Admitting Provider Family Medicine; Emergency Provider Family Medicine; Family Provider Family Medicine; Visit Provider Family Medicine
DX: K57.80 Diverticulitis of intestine, part unspecified, with perforation and abscess without bleeding (principal); C20 Malignant neoplasm of rectum; R59.1 Generalized enlarged lymph nodes; K59.00 Constipation, unspecified; M10.9 Gout, unspecified
CPT/HCPCS: 36415; 71275; 74176; 74177; 76705; 80053; 81001; 82274; 82378; 82550; 83605; 83690; 83735; 83993; 84100; 84145; 85025; 85651; 86140; 96372; 96375; 99282; J0744; J1170; J1650; J2270; J2405; J2550; J3010; Q9967; S0030

== ENCOUNTER 2019-05-20 18:01 | Emergency (ER) | payer OTHER, BC, SELFPAY ==
[2019-05-20 18:08] VITALS: BP 132/66; PULSE 79; RESP 16; TEMP 36.6; O2SAT 97; BMI 22.1
--- NOTE | 2019-05-20 18:29 | CTR_ITS ---
PROCEDURE INFORMATION: Exam: CT Abdomen And Pelvis Without Contrast Exam date and time: 05/20/2019 6:45 PM Age: 59 years old Clinical indication: Other: No bowel movement; Prior surgery; Surgery date: 6+ months; Additional info: Abd pain TECHNIQUE: Imaging protocol: Computed tomography of the abdomen and pelvis without contrast. Total DLP: 635.41 mGy-cm Radiation optimization: All CT scans at this facility use at least one of these dose optimization techniques: automated exposure control; mA and/or kV adjustment per patient size (includes targeted exams where dose is matched to clinical indication); or iterative reconstruction. COMPARISON: CT abdomen pelvis wo con [id number] 05/06/2019 12:57 PM FINDINGS: Tubes, catheters and devices: Since the recent prior exam a new catheter or drain ends in the pelvis. A previously seen perforated bowel loop has been resected and there is a new sigmoid anastomosis. Liver: Normal. No mass. Gallbladder and bile ducts: Normal. No calcified stones. No ductal dilation. Pancreas: Normal. No ductal dilation. Spleen: Incidental splenule near the spleen. Adrenals: Normal. No mass. Kidneys and ureters: Normal. No hydronephrosis. Stomach and bowel: New left abdominal ostomy. Slightly increased fluid in the small bowel suggests an early ileus. No transition zone to indicate mechanical obstruction. Scattered diverticula in the distal half of the colon. No acute inflammation. Appendix: No evidence of appendicitis. Intraperitoneal space: Unremarkable. No free air. No significant fluid collection. Vasculature: Unremarkable. No abdominal aortic aneurysm. Lymph nodes: Unremarkable. No enlarged lymph nodes. Bladder: Unremarkable as visualized. Reproductive: The uterus is relatively small. Bones/joints: Scattered chronic degenerative disc disease in the lower thoracic and upper lumbar spine. Soft tissues: Unremarkable. CT/CT abdomen pelvis wo con [id number] IMPRESSION: 1. New pelvic postop changes including surgical drain, sigmoidectomy and new ostomy. 2. No abscess or significant free fluid. 3. Slightly increased small rizwana fluid suggests a minimal ileus the. No mechanical obstruction. Radiation Dose CTDIVOL = (mGy): DLP = 635.41 (mGy-cm)
[2019-05-20 19:33] LABS: Basophils # 0.1 10^3/uL (0.0-0.1); Basophils % 0.5 %; Eosinophils # 0.2 10^3/uL (0.0-0.8); Eosinophils % 1.9 %; Hematocrit 36.9 % (37.0-47.0); Hemoglobin 11.8 g/dL (11.5-15.3); Lymphocytes # 1.4 10^3/uL (0.8-4.8); Lymphocytes % 13.7 %; Mean Corpuscular Hemoglobin 29.6 pg (28.0-34.0); Mean Corpuscular Volume 92.7 fL (81-99); Monocytes # 0.6 10^3/uL (0.2-0.9); Monocytes % 6.1 %; Neutrophils # 7.7 10^3/uL (1.8-7.7); Neutrophils % 77.1 %; Nucleated Red Blood Cells % 0 %; Platelet Count 525 10^3/cmm (130-400); Red Blood Count 3.98 10^6/uL (4.1-5.3); Red Cell Distribution Width 13.1 % (12.1-15.1)
[2019-05-20 19:43] LABS: Alanine Aminotransferase 24 U/L (0-33); Alkaline Phosphatase 90 IU/L (35-105); Anion Gap 16.7 (5-19); Aspartate Amino Transferase 18 U/L (0-32); Blood Urea Nitrogen 13 mg/dL (6-20); Calcium 9.5 mg/Dl (8.6-10.0); Carbon Dioxide 27 mmol/L (22-29); Chloride 98 mmol/L (98-107); Globulin 3.6 g/dL (1.3-4.6); Glomerular Filtration Rate 85.6 mL/min (90-130); Glucose 104 mg/dL (74-109); Lipase 14 U/L (13-60); Potassium 3.7 mmol/L (3.5-5.1); Sodium 138 mmol/L (136-145); Total Bilirubin 0.3 mg/dL (0.15-1.2); Total Protein 6.6 g/dL (6.6-8.7)
[2019-05-20 20:13] VITALS: BP 131/79; BP 138/66; PULSE 84; PULSE 86; RESP 16; RESP 18; TEMP 36.8; O2SAT 97; O2SAT 99
--- NOTE | 2019-05-20 20:20 | PC.NURSE ---
Introduced self to patient and initiated vital signs. Pt is A&O x 4 and agreeable. Pt states that the reason for the ER visit today is due to low output into colostomy bag over the past 24 hours. Pt also has questions about output into JERI drain which is becoming milky Reassured patient of needs and will continue to monitor. Awaiting provider at bedside.
--- NOTE | 2019-05-20 20:25 | ED_ITS ---
Entered by Valarie Talley, acting as scribe for Kacey Maxwell Alec May 20, 2019 18:01 HPI - General Adult General: Chief complaint: General Medical Stated complaint: cancer/no stool output Time Seen by Provider: 05/20/19 20:20 Source: patient and family Mode of arrival: ambulatory History of Present Illness: HPI narrative: 59 y/o female presents to the ED with complaint of decreased colostomy output. Pt was recently seen and was dx with colonrectal cancer. She had to have an emergency colostomy placement, partial colon resection and had a JERI drain placed. She states she has had decreased output in the bag within the past 24 hours. Pt reports some mild, midline redness around the colostomy incision site and some change in the color of the drainage of the JERI tube. Pt denies any abd pain, swelling, fever or N/V. MD complaint: Inscision/colostomy check Onset (ago): hour(s) (24) Location: abdomen Radiation: non-radiation Severity: mild Quality: other (no pain) Associated symptoms: Deny chest pain, confusion, diaphoresis, dyspnea, headache(s), malaise, nausea, rash, palpitations, syncope or vomiting Review of Systems General: Reports: other (negative unless marked) Const: Denies: fever, chills, body aches, fatigue, malaise or diaphoresis Eyes: Denies: change in vision or blurry vision ENMT: Denies: throat pain, painful swallowing, hoarseness, ear pain, ear discharge, Change in hearing or nasal discharge Card: Denies: chest pain, palpitations, irregular heart rhythm, syncope, pre- syncope, shortness of breath on exertion or shortness of breath when lying down Resp: Denies: shortness of breath, productive cough, non-productive cough, wheezing, coughing up blood or chest congestion GI: Denies: nausea or vomiting : Denies: flank pain, painful urination, urinary frequency, urinary urgency, decreased urine ouput, urinary incontinence or blood in urine Musc: Denies: neck pain, back pain, extremity pain, extremity swelling, joint pain, joint swelling, joint warmth or joint stiffness Skin/Breast: Denies: rash or yellow skin Neuro: Denies: headache, numbness in extremities, weakness in extremities, changes in sensation, lack of coordination, difficulty walking, dizziness, vertigo or confusion Endo: Denies: excessive thirst, tired all the time, cold intolerance, excessive sweating, flushing or hot flashes Coy/Lymph: Denies: easy bruising, easy bleeding, petechiae or enlarged lymph nodes All/Imm: Denies: hives, throat swelling, tongue swelling, facial swelling or acute wheezing PFSH ED PFSH: Statuses (acute, chronic, etc) shown below reflect problem list status as previously entered and may not be historically accurate Medical History Gout (Acute) Mitral valve prolapse (Acute) Surgical History History of appendectomy (Acute) History of bilateral tubal ligation (Acute) History of bladder surgery (Acute) Family History Other CAD (coronary artery disease) Denies family history of Diabetes Hyperlipidemia Cancer Hypertension Social History Smoking and tobacco status: former smoker Alcohol intake: current Alcohol intake frequency: holidays/special occasions only Physical Exam Const: COMMON NORMALS: no apparent distress, oriented x3, no limitations, healthy appearing and well nourished EXAM LIMITATIONS: no altered mental status GENERAL APPEARANCE: cooperative, well kempt and well developed ORIENTATION/CONSCIOUSNESS: Yes awake HENMT: COMMON NORMALS: normocephalic, head/scalp atraumatic, hearing grossly normal bilaterally, external ears normal, EAC's normal, external nose normal and moist oral mucous membranes HEAD & SCALP: normal to inspection, normocephalic and atraumatic FACE & SINUS: normal facial exam and face symmetric NOSE: external nose normal and nares normal EXTERNAL EAR: Yes external ears normal EXTERNAL AUDITORY CANAL: EAC's normal MOUTH: oral and palatal mucosa normal and tongue normal Eye: COMMON NORMALS: PERRL, EOMs intact bilaterally, conjunctivae normal and no scleral icterus GENERAL EYE: normal appearance of both eyes and normal light reflex CONJUNCTIVA: Yes conjunctivae normal SCLERA: sclerae normal CORNEA: Yes corneas normal PUPIL: Yes PERRL DIRECT OPHTHALMOSCOPY: Yes normal light reflex Neck/C-Spine: COMMON NORMALS: full ROM, no lymphadenopathy, supple, no meningeal signs and no JVD GENERAL: Yes normal visual inspection and Yes trachea midline CERVICAL SPINE: Yes cervical ROM normal Chest: COMMONS NORMALS: inspection of chest normal and palpation of chest normal Resp: COMMON NORMALS: normal respiratory effort, no retractions, no use of accessory muscles and clear to auscultation bilaterally EFFORT & INSPECTION: Yes able to speak in complete sentences AUSCULTATION: clear to auscultation bilaterally Cardio: COMMON NORMALS: no JVD, regular rate, regular rhythm, S1 normal heart sound, S2 normal heart sound, no gallops, no clicks, no murmurs and no rub JUGULAR VENOUS DISTENTION: no JVD RATE: regular rate RHYTHM: regular rhythm HEART SOUNDS: S1 normal and S2 normal : COMMON NORMALS: Yes no CVA tenderness BLADDER/KIDNEY EXAM: Yes no CVA tenderness Back/Pelvis: COMMON NORMALS: no CVA tenderness, thoracic and lumbar spine normal to inspection, no thoracic nor lumbar tenderness and thoraco-lumbar ROM normal Extremity: COMMON NORMALS: normal to inspection, full ROM, normal capillary refill, no joint enlargement, no clubbing, cyanosis or edema and no calf tenderness Neuro: COMMON NORMALS: oriented x3, CN's II-XII intact bilaterally, moves all extremities, no focal motor deficits and no sensory deficits noted MENINGEAL SIGNS: Yes no meningeal signs Psych: COMMON NORMALS: mental status grossly normal, thought process normal, cooperative, affect normal, speech normal and activity/motor behavior normal APPEARANCE: Yes well kempt SPEECH: Yes normal speech THOUGHT PROCESS: normal thought process Course ED course: 2214 -nursing is had a difficult time placing an IV on the patient. The patient is refusing further sticks and wants her CT to be performed without contrast. She understands that this is suboptimal. She agrees to let nursing try again later if the CT scan is suboptimal and further evaluation is needed. Vital Signs: Vital signs: Vital Signs Temperature 97.9 F 05/20/19 23:36 Pulse Rate 87 05/20/19 23:36 Respiratory Rate 16 05/20/19 23:36 Blood Pressure 106/63 05/20/19 23:36 Pulse Oximetry 98 05/20/19 23:36 MDM - General Adult MDM Narrative: Medical decision making narrative: The case was reviewed with Dr. Sims consumer marketing manager for Dr. Burch who performed the patient surgery. He agreed that if the patient's not vomiting and having no abdominal pain, and she is having neither, she can be treated with clear liquids at home and advance her diet as tolerated. The patient is already had a ileus at one point during her hospitalization that was treated conservatively and resolved. The patient is already on Cipro and Flagyl. As long as the patient's Tre-Salcido drain was continuing to drain he did not want to do anything with that. The patient agreed to this plan and still declined a second attempt at an IV. She wanted to be discharged home but we did review in full the reasons for which to return to the ER such as pain, vomiting, fever or for any other concerns. She denied have any other questions and she did not want to proceed with any further IV attempts here. Lab Data: Attestation: I reviewed the patient's lab results. Labs: Lab Results 05/20/19 05/20/19 05/20/19 Range/Units 19:01 19:01 23:21 WBC 10.0 (4.0-10.0) 10^3/ uL RBC 3.98 L (4.1-5.3) 10^6/u L Hgb 11.8 (11.5-15.3) g/dL Hct 36.9 L (37.0-47.0) % MCV 92.7 (81-99) fL MCH 29.6 (28.0-34.0) pg MCHC 32.0 (30.0-36.0) g/dL RDW 13.1 (12.1-15.1) % Plt Count 525 H (130-400) 10^3/c mm MPV 10.0 (7.4-10.4) fL Neut % (Auto) 77.1 % Lymph % (Auto) 13.7 % [place] % (Auto) 6.1 % Eos % (Auto) 1.9 % Baso % (Auto) 0.5 % Neut # (Auto) 7.7 (1.8-7.7) 10^3/u L Lymph # (Auto) 1.4 (0.8-4.8) 10^3/u L [place] # (Auto) 0.6 (0.2-0.9) 10^3/u L Eos # (Auto) 0.2 (0.0-0.8) 10^3/u L Baso # (Auto) 0.1 (0.0-0.1) 10^3/u L Nucleated RBC % (a uto) 0 % Nucleated RBCs # 0.0 /100WBC Sodium 138 (136-145) mmol/L Potassium 3.7 (3.5-5.1) mmol/L Chloride 98 (98-107) mmol/L Carbon Dioxide 27 (22-29) mmol/L Anion Gap 16.7 (5-19) BUN 13 (6-20) mg/dL Creatinine 0.7 (0.5-0.9) mg/dL GFR Calculation 85.6 L (90-130) mL/min Glucose 104 (74-109) mg/dL Calcium 9.5 (8.6-10.0) mg/Dl Total Bilirubin 0.3 (0.15-1.2) mg/dL AST 18 (0-32) U/L ALT 24 (0-33) U/L Alkaline Phosphata se 90 (35-105) IU/L Total Protein 6.6 (6.6-8.7) g/dL Albumin 3.0 L (3.5-5.2) g/dL Globulin 3.6 (1.3-4.6) g/dL Lipase 14 (13-60) U/L Urine Color Dark yellow (Yellow) Urine Appearance Clear (CLEAR) Urine pH 5 (5-7) Ur Specific Gravit y 1.020 (1.005-1.030) Urine Protein Neg (Negative) Urine Glucose (UA) Norm (Normal) Urine Ketones Negative (Negative) Urine Occult Blood Neg (Negative) Urine Nitrate Negative (Negative) Urine Bilirubin Neg (NEGATIVE) Urine Urobilinogen 1 H (Negative) mg/dL Ur Leukocyte Crystal ase Negative (Negative) Urine RBC None (0-2) /hpf Urine WBC 0-4 H (0-5) /hpf Ur Squamous Epith Cells 5-10 H (0-5) Urine Bacteria Trace (NONE) Urine Mucus 1+ Imaging Data^: CT Abd/Pel: Radiologist's impression: [address] [place] [address] CT Scan Report Signed Patient: Kathryn Marcus Unit #: [id number] : 1960 Age/Sex: 59 / F ADM Date: 05/20/19 Loc: ER Room/Bed: Attending Dr: Ordering Provider/Ordering MD: Elias Shen MD Date of Service: 05/20/19 Procedure(s): CT abdomen pelvis con [id number] Accession Number(s): [id number] Report Number: [id number] PROCEDURE INFORMATION: Exam: CT Abdomen And Pelvis Without Contrast Exam date and time: 05/20/2019 6:45 PM Age: 59 years old Clinical indication: Other: No bowel movement; Prior surgery; Surgery date: 6+ months; Additional info: Abd pain TECHNIQUE: Imaging protocol: Computed tomography of the abdomen and pelvis without contrast. Total DLP: 635.41 mGy-cm Radiation optimization: All CT scans at this facility use at least one of these dose optimization techniques: automated exposure control; mA and/or kV adjustment per patient size (includes targeted exams where dose is matched to clinical indication); or iterative reconstruction. COMPARISON: CT abdomen pelvis con [id number] 05/06/2019 12:57 PM FINDINGS: Tubes, catheters and devices: Since the recent prior exam a new catheter or drain ends in the pelvis. A previously seen perforated bowel loop has been resected and there is a new sigmoid anastomosis. Liver: Normal. No mass. Gallbladder and bile ducts: Normal. No calcified stones. No ductal dilation. Pancreas: Normal. No ductal dilation. Spleen: Incidental splenule near the spleen. Adrenals: Normal. No mass. Kidneys and ureters: Normal. No hydronephrosis. Stomach and bowel: New left abdominal ostomy. Slightly increased fluid in the small bowel suggests an early ileus. No transition zone to indicate mechanical obstruction. Scattered diverticula in the distal half of the colon. No acute inflammation. Appendix: No evidence of appendicitis. Intraperitoneal space: Unremarkable. No free air. No significant fluid collection. Vasculature: Unremarkable. No abdominal aortic aneurysm. Lymph nodes: Unremarkable. No enlarged lymph nodes. Bladder: Unremarkable as visualized. Reproductive: The uterus is relatively small. Bones/joints: Scattered chronic degenerative disc disease in the lower thoracic and upper lumbar spine. Soft tissues: Unremarkable. CT/CT abdomen pelvis con [id number] IMPRESSION: 1. New pelvic postop changes including surgical drain, sigmoidectomy and new ostomy. 2. No abscess or significant free fluid. 3. Slightly increased small rizwana fluid suggests a minimal ileus the. No mechanical obstruction. Radiation Dose CTDIVOL = (mGy): DLP = 635.41 (mGy-cm) Dictated By: Ally Weiss MD Signed By: Ally Weiss MD Signed Date/Time: 05/20/192254 DD/ 53 Discharge Plan Discharge Patient Disposition: Home, Self-Care Clinical Impression: Adynamic ileus Condition: Stable Prescriptions: New Zofran 4 mg tablet 4 mg PO DAILY PRN (Reason: nausea and vomiting) 5 Days Qty: 20 RF: 0 Discharge Orders: Discharge Order (Routine); Ordered 05/20/19 Ordered By: Kacey Maxwell Referrals: Ciera Jeff MD [Family Provider] - Discharge Diet: Clear Liquid Discharge Activity: Increase activity as tolerated Patient Instructions: Abdominal Pain - Adult Activity Restrictions/Additional Instructions: Please return to the ER immediately for any of the signs or symptoms listed on your discharge instruction sheets, worsening/changing of your symptoms, you are not getting better as quickly as expected, or for ANY other cause or concerns. Please return to the ER for abdominal pain, vomiting, fever, or for any other cause for concern. Continue your current antibiotics. Discharge Date/Time: 05/20/19 23:39 Coding Level of Care Code ED Heavy Equipment Mechanic for Chg Fwd Exam Problem Focused The documentation recorded by the Mayank melo Ashley, accurately reflects the service I personally performed and the decisions made by Hans soni Eli N May 20, 2019 18:01
--- NOTE | 2019-05-20 20:42 | PC.NURSE ---
Tried to remove drainage from JERI drain unsuccessfully.
[2019-05-20] MEDS: iohexol 300 mg/mL 100 mL Btl IV (21:28)
--- NOTE | 2019-05-20 23:26 | PC.NURSE ---
[facility] nurses have attempted IV access. No success.
[2019-05-20 23:36] VITALS: BP 106/63; PULSE 87; RESP 16; TEMP 36.6; O2SAT 98
[2019-05-20 23:57] LABS: Urine Appearance Clear (CLEAR); Urine Color Dark Yellow (Yellow); pH Urine 5 (5-7)
[2019-05-20 23:58] LABS: Bacteria Urine TRACE; Bilirubin Urine Neg (NEGATIVE); Blood Urine Neg (Negative); Glucose Urine UA Norm (Normal); Ketones Urine Negative (Negative); Leukocyte Esterase Urine Negative (Negative); Mucus Urine 1+; Nitrate Urine Negative (Negative); Protein Urine Neg (Negative); Urobilinogen Urine 1 mg/dL (Negative); WBC Urine 0-4 /hpf (0-5)
== END 2019-05-20 23:39 | disposition home or self-care (01) ==
PROVIDERS: Emergency Medicine; Emergency Provider Emergency Medicine; Family Provider Family Medicine
DX: K56.0 Paralytic ileus (principal); Z87.891 Personal history of nicotine dependence
CPT/HCPCS: 36415; 74176; 80053; 81001; 83690; 85025; 99282; Q9967

== ENCOUNTER 2019-07-12 14:24 | Emergency (ER) | payer OTHER, BC, SELFPAY ==
[2019-07-12 14:29] VITALS: BP 122/75; PULSE 102; RESP 18; TEMP 36.7; O2SAT 97; BMI 20.3
--- NOTE | 2019-07-12 14:36 | ED_ITS ---
Entered by Carlos Randle LPN, acting as scribe for Maldonado Johnson DO HPI - Abdominal Pain General: Chief Complaint: Abdominal Pain Stated Complaint: abd pain, N/V/D Time Seen by Provider: 07/12/19 14:34 Source: patient Mode of arrival: ambulatory Limitations: no limitations History of Present Illness: HPI narrative: 59 yo female with Rectal Cancer cu rrently on oral and IV Chemo presents with c/o abd pain that started 3 days ago. She describes it as sharp in nature, located in the mid abd. It increases when she is voiding, denies burning with urination, but her abd pain increases while voiding. She was constipated until about 1000 this am when she had a BM that was massive , soft. She has a Colostomy in the left abdomen. She has had nausea w ith vomiting. She denies any fever, chills, cough, congestion. She has had Radiation, is done with that. Last Chemo treatment was 07/01/19, scheduled for next treatment 07/22/19, currently in a clinical trial. Family at bedside states pt has had intermittent issues of constipation and abd pain throughout her treatment. MD elicited complaint: abdominal pain Severity: moderate Quality: sharp Associated Symptoms: Reports constipation (now resolved), nausea and vomiting; Denies chills, coffee ground emesis, GI cramping, diarrhea, dysuria, fever(s), heartburn, hematochezia, hematuria, hematemesis, melena and syncope Review of Systems Const: Denies: fever, chills, body aches, fatigue, malaise or night sweats Eyes: Denies: change in vision or blurry vision ENMT: Denies: throat pain, oral sores/lesions, dental pain, nasal discharge or nasal congestion Card: Denies: chest pain, palpitations, irregular heart rhythm, edema, syncope, shortness of breath on exertion, shortness of breath when lying down or leg pain with exertion Resp: Denies: shortness of breath, productive cough, non-productive cough or wheezing GI: Reports: abdominal pain, nausea, vomiting and constipation (now resolved); Denies: vomiting blood, coffee grounds in vomit, difficulty swallowing, heartburn/indigestion, diarrhea, cramping, blood in stool or black tarry stool : Denies: flank pain, painful urination, urinary frequency, urinary urgency, urinary incontinence or blood in urine Musc: Denies: neck pain, back pain, extremity pain, extremity swelling, joint pain or joint swelling Skin/Breast: Denies: rash, itching or redness Neuro: Denies: headache, numbness in extremities, weakness in extremities, changes in sensation, lack of coordination, difficulty walking, frequent falls, dizziness, vertigo or confusion Psych: Denies: anxiety, depression, loss of interest, visual hallucinations, auditory hallucinations, suicidal ideation or homicidal ideation Endo: Denies: excessive urination, excessive thirst, tired all the time or cold intolerance Coy/Lymph: Denies: easy bruising, easy bleeding, petechiae, enlarged lymph nodes or tender lymph nodes PFSH ED PFSH: Medical History (Updated 07/12/19 @ 17:27 by Maldonado Johnson DO) Gout Mitral valve prolapse Perforated diverticulum Rectal cancer Sees Dr. Maloney [place] Surgical History History of appendectomy History of bilateral tubal ligation History of bladder surgery Social History Smoking and tobacco status: never smoked Alcohol intake: current Alcohol intake frequency: holidays/special occasions only Physical Exam Const: COMMON NORMALS: average body habitus, oriented x3 and alert GENERAL APPEARANCE: cooperative, comfortable, well kempt and well developed NUTRITIONAL APPEARANCE: obese ORIENTATION/CONSCIOUSNESS: Yes awake, Yes oriented to person and Yes oriented to place HENMT: COMMON NORMALS: normocephalic, head/scalp atraumatic, EAC's normal, TM's normal bilaterally, external nose normal, moist oral mucous membranes and oropharynx normal HEAD & SCALP: normocephalic and atraumatic NOSE: external nose normal EXTERNAL AUDITORY CANAL: EAC's normal TYMPANIC MEMBRANE: TM's normal bilaterally MOUTH: oral and palatal mucosa normal, lip normal and tongue normal THROAT: posterior oropharynx normal and tonsils normal Eye: COMMON NORMALS: PERRL, EOMs intact bilaterally, conjunctivae normal and no scleral icterus CONJUNCTIVA: Yes conjunctivae normal PUPIL: Yes PERRL Neck/C-Spine: COMMON NORMALS: full ROM, no lymphadenopathy, supple, no meningeal signs and thyroid normal THYROID: thyroid normal and asymmetrical Lymph: LYMPHATIC: no lymphadenopathy noted Resp: COMMON NORMALS: normal respiratory effort, no retractions, no use of accessory muscles and clear to auscultation bilaterally AUSCULTATION: clear to auscultation bilaterally Cardio: COMMON NORMALS: regular rate and regular rhythm RATE: regular rate RHYTHM: regular rhythm HEART SOUNDS: no murmurs GI: COMMON NORMALS: normal to inspection, nondistended, normoactive bowel sounds, soft to palpation and no hepatosplenomegaly PALPATION: Yes soft and Yes no hepatosplenomegaly OTHER: Patient has ostomy in abdomen with no evidence of irritation. She still having good output. Bowel sounds are positive abdomen is nontender at this time. : COMMON NORMALS: Yes no CVA tenderness BLADDER/KIDNEY EXAM: Yes no CVA tenderness Back/Pelvis: COMMON NORMALS: no CVA tenderness LUMBAR SPINE/LOWER BACK: Yes normal to inspection Extremity: COMMON NORMALS: no clubbing, cyanosis or edema, no calf tenderness and no pedal edema Neuro: COMMON NORMALS: oriented x3 SENSORIUM/ORIENTATION: Yes alert, Yes oriented to person and Yes oriented to place MENINGEAL SIGNS: Yes no meningeal signs Psych: APPEARANCE: Yes well kempt Skin: COMMON NORMALS: no rashes or lesions noted and skin turgor normal GENERAL SKIN EXAM: no rashes or lesions noted and turgor normal Course ED course: CT shows some dilated loops of bowel but there is no evidence of a transition point she is actually feeling quite a bit better now. I suspect she may have some adhesions causing a bit of stricture in her colon but she still intermittently able to get past it. She has surgical team and oncology team arun t she sees at [facility]. This point there is no indication to admit her she still getting good clot colostomy output and has auscultated well bowel sounds. Reviewed all this with her. We will discharge her home have her follow-up with her oncology team at [facility]. If she has worsening pain or problems she is to return immediately. Vital Signs: Vital signs: Vital Signs Temperature 98.0 F 07/12/19 14:29 Pulse Rate 88 07/12/19 17:39 Respiratory Rate 16 07/12/19 17:39 Blood Pressure 132/81 07/12/19 17:39 Pulse Oximetry 98 07/12/19 17:39 MDM - Abdominal Pain Lab Data: Labs: Lab Results 07/12/19 07/12/19 07/12/19 Range/Units 14:48 14:48 14:48 WBC 5.8 (4.0-10.0) 10^3/ uL RBC 4.25 (4.1-5.3) 10^6/u L Hgb 13.2 (11.5-15.3) g/dL Hct 39.9 (37.0-47.0) % MCV 93.9 (81-99) fL MCH 31.1 (28.0-34.0) pg MCHC 33.1 (30.0-36.0) g/dL RDW 15.2 H (12.1-15.1) % Plt Count 168 (130-400) 10^3/c mm MPV 9.7 (7.4-10.4) fL Neut % (Auto) 70.2 % Lymph % (Auto) 13.9 % [place] % (Auto) 11.9 % Eos % (Auto) 3.1 % Baso % (Auto) 0.7 % Neut # (Auto) 4.1 (1.8-7.7) 10^3/u L Lymph # (Auto) 0.8 (0.8-4.8) 10^3/u L [place] # (Auto) 0.7 (0.2-0.9) 10^3/u L Eos # (Auto) 0.2 (0.0-0.8) 10^3/u L Baso # (Auto) 0.0 (0.0-0.1) 10^3/u L Nucleated RBC % (a uto) 0 % Nucleated RBCs # 0.0 /100WBC Sodium 138 (136-145) mmol/L Potassium 4.0 (3.5-5.1) mmol/L Chloride 98 (98-107) mmol/L Carbon Dioxide 27 (22-29) mmol/L Anion Gap 17.0 (5-19) BUN 10 (6-20) mg/dL Creatinine 0.8 (0.5-0.9) mg/dL GFR Calculation 73.4 L (90-130) mL/min Glucose 119 H (65-115) mg/dL Calculated Osmolal ity 283 L (285-295) mOsm/k g Lactate (0.5-2.2) mmol/L Calcium 9.9 (8.5-10.5) mg/dL Total Bilirubin 0.3 (0.15-1.2) mg/dL AST 19 (0-32) U/L ALT 17 (0-33) U/L Alkaline Phosphata se 87 (35-105) IU/L Total Protein 6.6 (6.6-8.7) g/dL Albumin 4.4 (3.5-5.2) g/dL Globulin 2.2 (1.3-4.6) g/dL Lipase 26 (13-60) U/L Urine Color (Yellow) Urine Appearance (CLEAR) Urine pH (5-7) Ur Specific Gravit y (1.005-1.030) Urine Protein (Negative) Urine Glucose (UA) (Normal) Urine Ketones (Negative) Urine Blood (Negative) Urine Nitrate (Negative) Urine Bilirubin (NEGATIVE) Urine Urobilinogen (Negative) mg/dL Ur Leukocyte Crystal ase (Negative) Serum Ketones Negative (Negative) 07/12/19 07/12/19 Range/Units 14:48 15:28 WBC (4.0-10.0) 10^3/ uL RBC (4.1-5.3) 10^6/u L Hgb (11.5-15.3) g/dL Hct (37.0-47.0) % MCV (81-99) fL MCH (28.0-34.0) pg MCHC (30.0-36.0) g/dL RDW (12.1-15.1) % Plt Count (130-400) 10^3/c mm MPV (7.4-10.4) fL Neut % (Auto) % Lymph % (Auto) % [place] % (Auto) % Eos % (Auto) % Baso % (Auto) % Neut # (Auto) (1.8-7.7) 10^3/u L Lymph # (Auto) (0.8-4.8) 10^3/u L [place] # (Auto) (0.2-0.9) 10^3/u L Eos # (Auto) (0.0-0.8) 10^3/u L Baso # (Auto) (0.0-0.1) 10^3/u L Nucleated RBC % (a uto) % Nucleated RBCs # /100WBC Sodium (136-145) mmol/L Potassium (3.5-5.1) mmol/L Chloride (98-107) mmol/L Carbon Dioxide (22-29) mmol/L Anion Gap (5-19) BUN (6-20) mg/dL Creatinine (0.5-0.9) mg/dL GFR Calculation (90-130) mL/min Glucose (65-115) mg/dL Calculated Osmolal ity (285-295) mOsm/k g Lactate 0.8 (0.5-2.2) mmol/L Calcium (8.5-10.5) mg/dL Total Bilirubin (0.15-1.2) mg/dL AST (0-32) U/L ALT (0-33) U/L Alkaline Phosphata se (35-105) IU/L Total Protein (6.6-8.7) g/dL Albumin (3.5-5.2) g/dL Globulin (1.3-4.6) g/dL Lipase (13-60) U/L Urine Color Yellow (Yellow) Urine Appearance Clear (CLEAR) Urine pH 7 (5-7) Ur Specific Gravit y 1.010 (1.005-1.030) Urine Protein Neg (Negative) Urine Glucose (UA) Norm (Normal) Urine Ketones Negative (Negative) Urine Blood Neg (Negative) Urine Nitrate Negative (Negative) Urine Bilirubin Neg (NEGATIVE) Urine Urobilinogen Norm (Negative) mg/dL Ur Leukocyte Crystal ase Negative (Negative) Serum Ketones (Negative) Discharge Plan Discharge Patient Disposition: Home, Self-Care Clinical Impression: Abdominal pain, Rectal cancer Condition: Stable Prescriptions: No Action Xeloda 500 mg Tablet 1,500 mg PO BID RF: 0 senna 8.6 mg Tablet 8.6 mg PO BID RF: 0 Compazine 10 mg Tablet 10 mg PO Q6H PRN (Reason: Nausea) RF: 0 promethazine 25 mg Tablet 25 mg PO Q6H PRN (Reason: Nausea) RF: 0 Miralax 17 gram/dose Powder 17 g PO DAILY PRN (Reason: Constipation) RF: 0 oxycodone 5 mg Tablet, Oral Only 5 mg PO Q4H PRN (Reason: Pain) RF: 0 Discharge Orders: Discharge Order (Routine); Ordered 07/12/19 Ordered By: Maldonado Johnson Referrals: Ciera Jeff MD [Primary Care Provider] - Discharge Diet: Usual diet Discharge Activity: Resume usual activity Activity Restrictions/Additional Instructions: Follow-up with your cancer team at [facility]. Discharge Date/Time: 07/12/19 17:39 Coding Level of Care Code ED Automotive Project Engineer for Chg Fwd Exam Comprehensive The documentation recorded by the Razia melo Dani Elizabeth, LPN, accurately reflects the service I personally performed and the decisions made by Alex soni Curtis L, Jul 12, 2019 14:24
[2019-07-12 14:54] VITALS: PULSE 93; RESP 16; O2SAT 96
[2019-07-12 14:58] LABS: Basophils % 0.7 %; Eosinophils # 0.2 10^3/uL (0.0-0.8); Eosinophils % 3.1 %; Hematocrit 39.9 % (37.0-47.0); Hemoglobin 13.2 g/dL (11.5-15.3); Lymphocytes # 0.8 10^3/uL (0.8-4.8); Lymphocytes % 13.9 %; Mean Corpuscular HGB Conc 33.1 g/dL (30.0-36.0); Mean Corpuscular Hemoglobin 31.1 pg (28.0-34.0); Mean Corpuscular Volume 93.9 fL (81-99); Mean Platelet Volume 9.7 fL (7.4-10.4); Monocytes # 0.7 10^3/uL (0.2-0.9); Monocytes % 11.9 %; Neutrophils # 4.1 10^3/uL (1.8-7.7); Neutrophils % 70.2 %; Nucleated Red Blood Cells % 0 %; Platelet Count 168 10^3/cmm (130-400); Red Blood Count 4.25 10^6/uL (4.1-5.3); Red Cell Distribution Width 15.2 % (12.1-15.1); White Blood Count 5.8 10^3/uL (4.0-10.0)
--- NOTE | 2019-07-12 15:07 | CT_ITS ---
WS: [id number] CT ABDOMEN PELVIS TECHNIQUE: Contrast-enhanced CT of the abdomen and pelvis with coronal and sagittal reformatted image s. CLINICAL INFORMATION: abd pain COMPARISON: May 20, 2019 DLP: 544.[address] scans at [facility] use at least one of these dose optimization techniques: automat ed exposure control; mA and/or kV adjustment per patient size (includes targeted exams where dose is matched to clinical indication); or iterative reconstruction. FINDINGS: Postoperative changes sigmoid resection with left lower quadrant ostomy. Surgical drain in the pelvis has been removed since the prior examination. Moderately distended loops of fluid-filled small bowel in the midabdomen and pelvis with small bowel loops measuring up to 3.3 cm with air-fluid levels. So mewhat prominent mucosal enhancement involving small bowel likely related to treatment related change s. Air-fluid levels in normal caliber colon. Lower quadrant colostomy appears patent. No evidence of obstruction. No focal transition points.Slightly distended stomach and proximal duodenum with air-flu id levels. Submucosal enhancement involving the sigmoid colon and rectum likely due to postoperative changes and treatment effect. Lung bases are well aerated. Liver is normal. Normal portal vein and splenic vein. Normal spleen. Nor mal gastroesophageal junction. Spleen is normal in appearance. Small splenule. Adrenal glands are nor mal. No hydronephrosis. Small bilateral renal cysts. Visualized pancreas is normal in appearance. Nor mal caliber abdominal aorta. Small amount of fluid in the pelvis. Slight retrolisthesis L2 on L3. Notified Maldonado Johnson DO at 07/12/2019 4:[address]/CT abdomen pelvis w con* [id number] IMPRESSION: 1. Prior postoperative changes sigmoid resection with anastomosis. Left lower quadrant colostomy. 2. Colostomy appears normal in appearance and patent. No evidence of obstructi on at the ostomy site. 3. Slightly dilated fluid-filled loops of small and large bowel in the midabdo men and pelvis with air-fluid levels. Consider intermittent partial obstruction . No high-grade obstruction. No transition point. 4. No drainable fluid collections. 5. Trace free fluid in the pelvis. 6. No hydronephrosis. Incidental left renal cysts. 7. Previously described diverticular abscess has been drained. Removal of the surgical drain.
[2019-07-12 15:12] LABS: Alanine Aminotransferase 17 U/L (0-33); Albumin Level 4.4 g/dL (3.5-5.2); Alkaline Phosphatase 87 IU/L (35-105); Aspartate Amino Transferase 19 U/L (0-32); Blood Urea Nitrogen 10 mg/dL (6-20); Calcium 9.9 mg/dL (8.5-10.5); Carbon Dioxide 27 mmol/L (22-29); Chloride 98 mmol/L (98-107); Globulin 2.2 g/dL (1.3-4.6); Glomerular Filtration Rate 73.4 mL/min (90-130); Glucose 119 mg/dL (65-115); Lipase 26 U/L (13-60); Osmolality Calculated 283 mOsm/kg (285-295); Sodium 138 mmol/L (136-145); Total Bilirubin 0.3 mg/dL (0.15-1.2); Total Protein 6.6 g/dL (6.6-8.7)
[2019-07-12 15:25] LABS: Ketone (Acetest) Serum Negative (Negative)
[2019-07-12 15:27] LABS: Lactate (Lactic Acid level) 0.8 mmol/L (0.5-2.2)
[2019-07-12] MEDS: sodium chloride 0.9% 1,000 ML 999 ML IV (15:33)
[2019-07-12 15:38] LABS: Add Urine Microscopic? NO
[2019-07-12] MEDS: iohexol 300 mg/mL 100 mL Btl IV (15:43)
[2019-07-12 15:47] LABS: Bilirubin Urine Neg (NEGATIVE); Blood Urine Neg (Negative); Glucose Urine UA Norm (Normal); Ketones Urine Negative (Negative); Leukocyte Esterase Urine Negative (Negative); Nitrate Urine Negative (Negative); Protein Urine Neg (Negative); Urine Appearance Clear (CLEAR); Urine Color Yellow (Yellow); Urobilinogen Urine Norm (Negative); pH Urine 7 (5-7)
[2019-07-12 16:22] VITALS: BP 118/73; PULSE 86; RESP 16; O2SAT 97
[2019-07-12 16:58] VITALS: BP 118/73; PULSE 92; RESP 15; O2SAT 98
[2019-07-12 17:39] VITALS: BP 132/81; PULSE 88; RESP 16; O2SAT 98
== END 2019-07-12 17:39 | disposition home or self-care (01) ==
PROVIDERS: Physician Assistant; Emergency Provider Family Medicine; Family Provider Family Medicine; PCP Family Medicine
DX: R10.9 Unspecified abdominal pain (principal); C20 Malignant neoplasm of rectum; Z93.3 Colostomy status
CPT/HCPCS: 12345; 74177; 80053; 81003; 82009; 83605; 83690; 85025; 96360; 96361; 99283; A9270; J7030; Q9967

== ENCOUNTER 2019-09-12 17:01 | Emergency (ER) | payer OTHER, SELFPAY ==
[2019-09-12 17:15] VITALS: BP 118/60; PULSE 62; RESP 17; TEMP 36.7; O2SAT 97; BMI 19.2
[2019-09-12 19:42] LABS: Basophils % 0.3 %; Eosinophils % 0.6 %; Hematocrit 41.2 % (37.0-47.0); Hemoglobin 12.5 g/dL (11.5-15.3); Mean Corpuscular HGB Conc 30.3 g/dL (30.0-36.0); Mean Corpuscular Hemoglobin 29.6 pg (28.0-34.0); Mean Corpuscular Volume 97.6 fL (81-99); Mean Platelet Volume 10.6 fL (7.4-10.4); Monocytes # 0.1 10^3/uL (0.2-0.9); Neutrophils % 83.8 %; Nucleated Red Blood Cells % 0 %; Platelet Count 236 10^3/cmm (130-400); Red Blood Count 4.22 10^6/uL (4.1-5.3); Red Cell Distribution Width 14.6 % (12.1-15.1); White Blood Count 7.1 10^3/uL (4.0-10.0)
[2019-09-12 20:03] LABS: Alanine Aminotransferase 9 U/L (0-33); Albumin Level 3.9 g/dL (3.5-5.2); Alkaline Phosphatase 83 IU/L (35-105); Anion Gap 16.1 (5-19); Aspartate Amino Transferase 18 U/L (0-32); Blood Urea Nitrogen 16 mg/dL (6-20); Calcium 8.7 mg/dL (8.5-10.5); Carbon Dioxide 29 mmol/L (22-29); Chloride 98 mmol/L (98-107); Globulin 2.4 g/dL (1.3-4.6); Glomerular Filtration Rate 64.1 mL/min (90-130); Glucose 93 mg/dL (65-115); Osmolality Calculated 284 mOsm/kg (285-295); Potassium 4.1 mmol/L (3.5-5.1); Sodium 139 mmol/L (136-145); Total Bilirubin 0.3 mg/dL (0.15-1.2); Total Protein 6.3 g/dL (6.6-8.7)
[2019-09-12 20:17] LABS: Bilirubin Urine Neg (NEGATIVE); Blood Urine 3+ (Negative); Glucose Urine UA Norm (Normal); Ketones Urine Negative (Negative); Nitrate Urine Negative (Negative); Protein Urine 3+ (Negative); Specific Gravity, Urine 1.015 (1.005-1.030); Urine Color Yellow (Yellow); Urobilinogen Urine Norm (Negative); pH Urine 8 (5-7)
[2019-09-12 20:18] LABS: Add Urine Culture? No; Add Urine Microscopic? YES; Bacteria Urine TRACE; Leukocyte Esterase Urine Trace (Negative); RBC Urine TOO NUMEROUS TO CNT /hpf (0-2); WBC Urine 0-4 /hpf (0-5)
--- NOTE | 2019-09-12 20:41 | W.ED.FEMALGU ---
HPI - Female Genitourinary General: Chief complaint: Urogenital-Female Stated complaint: flank pain Time Seen by Provider: 09/12/19 20:41 Source: patient History of Present Illness: HPI Narrative: 59-year-old female with bilateral ureteral stent placement August 29 in [place] performed by Dr. Barkley, complains of pain since stents were placed but says that it is gradually starting to get worse. She spoke with her doctor in [place] who told her to come to the ER so that we could check to make sure the stents were still in place. She took her own oxycodone approximately 6-1/2 hours before I saw her. She does not have a urologist here her doctors are mainly in [place] as she gets chemo for colorectal cancer in [place]. She has had blood in her urine since before the stents were placed. Denies any fever. Pain is dull bilateral right slightly greater than left. Pain is 5 out of 10 right now. No burning with urination. Associated symptoms: Deny abdominal pain, headache(s) or nausea Review of Systems General: Reports: 10 or more systems reviewed and unremarkable except in HPI and below Const: Denies: fever(s) or chills Eyes: Denies: change in vision ENMT: Denies: throat pain Card: Denies: chest pain Resp: Denies: dyspnea GI: Denies: abdominal pain, nausea, vomiting or change in bowel habits : Reports: flank pain Musc: Denies: muscle weakness Skin/Breast: Denies: rash Neuro: Denies: headache(s) Psych: Denies: hopelessness or suicidal ideation Endo: Denies: polyuria Coy/Lymph: Denies: easy bruising or easy bleeding All/Imm: Denies: urticaria PFSH ED PFSH: Medical History (Updated 09/12/19 @ 23:10 by Lavern Kamara MD) Gout Mitral valve prolapse Perforated diverticulum Rectal cancer Sees Dr. Maloney [place] Surgical History (Updated 09/12/19 @ 23:10 by Lavern Kamara MD) History of appendectomy History of bilateral tubal ligation History of bladder surgery Family History Other CAD (coronary artery disease) Denies family history of Diabetes Hyperlipidemia Cancer Hypertension Social History Smoking and tobacco status: former smoker Alcohol intake: current Alcohol intake frequency: holidays/special occasions only Physical Exam Const: COMMON NORMALS: no acute distress, patient oriented x3, alert and well nourished HENMT: COMMON NORMALS: normocephalic and Normal external nose present HEAD & SCALP: normocephalic NOSE: Normal external nose present MOUTH: no trismus Eye: COMMON NORMALS: EOMs intact bilaterally and conjunctivae normal CONJUNCTIVA: Yes conjunctivae normal Neck/C-Spine: COMMON NORMALS: full ROM, no lymphadenopathy and supple CERVICAL SPINE: Yes cervical ROM normal Lymph: LYMPHATIC: no lymphadenopathy noted Resp: COMMON NORMALS: normal respiratory effort, No retractions, No use of accessory muscles and clear to auscultation bilaterally EFFORT & INSPECTION: Yes able to speak in complete sentences AUSCULTATION: clear to auscultation bilaterally Cardio: COMMON NORMALS: regular rate and regular rhythm RATE: regular rate RHYTHM: regular rhythm GI: COMMON NORMALS: Normal to inspection, nondistended, normoactive bowel sounds present, Soft to palpation, non-tender and no masses INSPECTION: Yes normal to inspection AUSCULTATION: Yes normoactive bowel sounds PALPATION: Yes Soft to palpation, No Guarding due to palpation present (GI) and No Rigid due to palpation OTHER: Colostomy bag in place with small amount of liquid stool in bag Back/Pelvis: OTHER: Normal range of motion Extremity: GENERAL: Yes normal exam except as noted Neuro: COMMON NORMALS: patient oriented x3 and CN's II-XII intact bilaterally SENSORIUM/ORIENTATION: Yes alert SPEECH: speech normal Psych: COMMON NORMALS: mental status grossly normal Skin: COMMON NORMALS: no rashes or lesions noted GENERAL SKIN EXAM: no rashes or lesions noted Course Vital Signs: Vital signs: Vital Signs Temperature 98.1 F 09/12/19 17:15 Pulse Rate 62 09/12/19 17:15 Respiratory Rate 17 09/12/19 17:15 Blood Pressure 118/60 09/12/19 17:15 Pulse Oximetry 97 09/12/19 17:15 MDM - Female [facility] Narrative: Medical decision making narrative: Updated patient on her CT results. She does not have bacteria in her urine or white blood cells is afebrile with a normal white count, I think the changes the radiologist saw were related to inflammatory changes and scarring rather than infection at this time patient agrees and does not feel like she has an infection. She will communicate this information with her urologist in [place]. She states the pain has let up on its own. Nontoxic-appearing has no questions and tells me she just came to make sure the stents were in the right place as per her urologist directive. Lab Data: Attestation: I reviewed the patient's lab results. Labs: Lab Results 09/12/19 09/12/19 09/12/19 Range/Units 19:09 19:09 19:35 WBC 7.1 (4.0-10.0) 10^3/ uL RBC 4.22 (4.1-5.3) 10^6/u L Hgb 12.5 (11.5-15.3) g/dL Hct 41.2 (37.0-47.0) % MCV 97.6 (81-99) fL MCH 29.6 (28.0-34.0) pg MCHC 30.3 (30.0-36.0) g/dL RDW 14.6 (12.1-15.1) % Plt Count 236 (130-400) 10^3/c mm MPV 10.6 H (7.4-10.4) fL Neut % (Auto) 83.8 % Lymph % (Auto) 14.0 % [place] % (Auto) 1.0 % Eos % (Auto) 0.6 % Baso % (Auto) 0.3 % Neut # (Auto) 6.0 (1.8-7.7) 10^3/u L Lymph # (Auto) 1.0 (0.8-4.8) 10^3/u L [place] # (Auto) 0.1 L (0.2-0.9) 10^3/u L Eos # (Auto) 0.0 (0.0-0.8) 10^3/u L Baso # (Auto) 0.0 (0.0-0.1) 10^3/u L Nucleated RBC % (a uto) 0 % Nucleated RBCs # 0.0 /100WBC Sodium 139 (136-145) mmol/L Potassium 4.1 (3.5-5.1) mmol/L Chloride 98 (98-107) mmol/L Carbon Dioxide 29 (22-29) mmol/L Anion Gap 16.1 (5-19) BUN 16 (6-20) mg/dL Creatinine 0.9 (0.5-0.9) mg/dL GFR Calculation 64.1 L (90-130) mL/min Glucose 93 (65-115) mg/dL Calculated Osmolal ity 284 L (285-295) mOsm/k g Calcium 8.7 (8.5-10.5) mg/dL Total Bilirubin 0.3 (0.15-1.2) mg/dL AST 18 (0-32) U/L ALT 9 (0-33) U/L Alkaline Phosphata se 83 (35-105) IU/L Total Protein 6.3 L (6.6-8.7) g/dL Albumin 3.9 (3.5-5.2) g/dL Globulin 2.4 (1.3-4.6) g/dL Urine Color Yellow (Yellow) Urine Appearance Sl cloudy A (CLEAR) Urine pH 8 H (5-7) Ur Specific Gravit y 1.015 (1.005-1.030) Urine Protein 3+ H (Negative) Urine Glucose (UA) Norm (Normal) Urine Ketones Negative (Negative) Urine Blood 3+ H (Negative) Urine Nitrate Negative (Negative) Urine Bilirubin Neg (NEGATIVE) Urine Urobilinogen Norm (Negative) mg/dL Ur Leukocyte Crystal ase Trace H (Negative) Urine RBC Too numerous to c nt H (0-2) /hpf Urine WBC 0-4 H (0-5) /hpf Ur Squamous Epith Cells None (0-5) Urine Bacteria Trace (NONE) Imaging Data: CT Abd/Pel: Radiologist's impression: [place] [address] CT Scan Report Signed Patient: Kathryn MarcusUnsaad #: [id number] : 1960Acct#:[id number] Age/Sex: 59 / FADM Date: 09/12/19 Loc: ERRoom/Bed: Attending Dr: Ordering Provider/Ordering MD: Lavern Kamara MD Date of Service: 09/12/19 Procedure(s): CT kidney stone 78676 Accession Number(s): [id number] Report Number: [id number] PROCEDURE INFORMATION: Exam: CT Abdomen And Pelvis Without Contrast Exam date and time: 09/12/2019 9:26 PM Age: 59 years old Clinical indication: Abdominal pain; Flank; Other: Bilat; Prior surgery; Surgery type: Colon, uretral stent; Additional info: Bilateral flank pain. Assess stent placement TECHNIQUE: Imaging protocol: Computed tomography of the abdomen and pelvis without contrast. Radiation optimization: All CT scans at this facility use at least one of these dose optimization techniques: automated exposure control; mA and/or kV adjustment per patient size (includes targeted exams where dose is matched to clinical indication); or iterative reconstruction. COMPARISON: CT abdomen pelvis wo con [id number] 05/20/2019 10:25 PM RADIATION DOSE METRICS: Total DLP: 566.51 mGy-cm FINDINGS: Liver: Normal. No mass. Gallbladder and bile ducts: Normal. No calcified stones. No ductal dilation. Pancreas: Normal. No ductal dilation. Spleen: Normal. No splenomegaly. Adrenals: Normal. No mass. Kidneys and ureters: There are bilateral double pigtail ureteral stents. The upper loops are present within the renal pelvis sees, the lower loops present within the bladder lumen. There is bilateral hydronephrosis. Strandy opacities are seen in the right perinephric fascia and extending along the right ureter, findings could represent inflammatory changes and pyelonephritis and ureteritis. This finding is new compared with 05/20/2019 and 07/12/2019. Stomach and bowel: A colostomy is seen in the left anterior flank status post sigmoidectomy. Appendix: No evidence of appendicitis. Intraperitoneal space: Unremarkable. No free air. No significant fluid collection. Vasculature: Unremarkable. No abdominal aortic aneurysm. Lymph nodes: Unremarkable. No enlarged lymph nodes. Bladder: See Kidneys and ureters finding. Reproductive: Unremarkable as visualized. Bones/joints: Unremarkable. No acute fracture. Soft tissues: Unremarkable. Other findings: There are some strandy low densities seen in the presacral fat and fascia likely represents some edema versus postoperative scarring. CT/CT kidney stone [id number] IMPRESSION: 1. There are bilateral double pigtail ureteral stents with appropriate positioning. There is bilateral hydronephrosis seen. Additionally, strandy opacities are now seen surrounding the right kidney and proximal to mid right ureter raising suspicion for pyelonephritis and/or ureteritis. 2. Probable presacral edema versus postoperative scarring. Radiation Dose CTDIVOL = (mGy): DLP = 566.51 (mGy-cm) Dictated By:Thomas Stanton MD Signed By:Thomas Stanton MDSigned Date/Time:09/12/192257 DD/ 55 Discharge Plan Discharge Patient Disposition: Home, Self-Care Clinical Impression: Bilateral flank pain, S/P ureteral stent placement Condition: Stable Prescriptions: No Action polyethylene glycol 3350 [Miralax] 17 gram/dose Powder 17 g PO DAILY PRN (Reason: Constipation) RF: 0 oxycodone 5 mg Tablet, Oral Only 10 mg PO Q4H PRN (Reason: Pain) RF: 0 Senexon-S 8.6-50 mg Tablet 2 tab-cap PO DAILY RF: 0 phenazopyridine 100 mg Tablet 100 mg PO TID RF: 0 oxybutynin chloride 5 mg Tablet 5 mg PO TID RF: 0 Lexapro 10 mg Tablet 10 mg PO DAILY RF: 0 Myrbetriq 25 mg Tablet Extended Release 24 Hr 25 mg PO DAILY RF: 0 Referrals: Ciera Jeff MD [Primary Care Provider] - Patient Instructions: Hydronephrosis (ED) Activity Restrictions/Additional Instructions: Call your urologist in [place] tomorrow and let them know that your stents are positioned properly. Your white count was normal and your urine showed no increase in white blood cells. Return to the ER for any emergent problem, we are happy to reevaluate you. Coding Level of Care Code ED Fabrication Specialist for Chg Fwd Exam Comprehensive
--- NOTE | 2019-09-12 21:01 | CTR_ITS ---
PROCEDURE INFORMATION: Exam: CT Abdomen And Pelvis Without Contrast Exam date and time: 09/12/2019 9:26 PM Age: 59 years old Clinical indication: Abdominal pain; Flank; Other: Bilat; Prior surgery; Surgery type: Colon, uretral stent; Additional info: Bilateral flank pain. Assess stent placement TECHNIQUE: Imaging protocol: Computed tomography of the abdomen and pelvis without contrast. Radiation optimization: All CT scans at this facility use at least one of these dose optimization techniques: automated exposure control; mA and/or kV adjustment per patient size (includes targeted exams where dose is matched to clinical indication); or iterative reconstruction. COMPARISON: CT abdomen pelvis wo con [id number] 05/20/2019 10:25 PM RADIATION DOSE METRICS: Total DLP: 566.51 mGy-cm FINDINGS: Liver: Normal. No mass. Gallbladder and bile ducts: Normal. No calcified stones. No ductal dilation. Pancreas: Normal. No ductal dilation. Spleen: Normal. No splenomegaly. Adrenals: Normal. No mass. Kidneys and ureters: There are bilateral double pigtail ureteral stents. The upper loops are present within the renal pelvis sees, the lower loops present within the bladder lumen. There is bilateral hydronephrosis. Strandy opacities are seen in the right perinephric fascia and extending along the right ureter, findings could represent inflammatory changes and pyelonephritis and ureteritis. This finding is new compared with 05/20/2019 and 07/12/2019. Stomach and bowel: A colostomy is seen in the left anterior flank status post sigmoidectomy. Appendix: No evidence of appendicitis. Intraperitoneal space: Unremarkable. No free air. No significant fluid collection. Vasculature: Unremarkable. No abdominal aortic aneurysm. Lymph nodes: Unremarkable. No enlarged lymph nodes. Bladder: See Kidneys and ureters finding. Reproductive: Unremarkable as visualized. Bones/joints: Unremarkable. No acute fracture. Soft tissues: Unremarkable. Other findings: There are some strandy low densities seen in the presacral fat and fascia likely represents some edema versus postoperative scarring. CT/CT kidney stone [id number] IMPRESSION: 1. There are bilateral double pigtail ureteral stents with appropriate positioning. There is bilateral hydronephrosis seen. Additionally, strandy opacities are now seen surrounding the right kidney and proximal to mid right ureter raising suspicion for pyelonephritis and/or ureteritis. 2. Probable presacral edema versus postoperative scarring. Radiation Dose CTDIVOL = (mGy): DLP = 566.51 (mGy-cm)
[2019-09-12 23:33] VITALS: BP 106/62; PULSE 64; RESP 16; O2SAT 97
== END 2019-09-12 23:36 | disposition home or self-care (01) ==
PROVIDERS: Emergency Medicine; Emergency Provider Emergency Medicine; PCP Family Medicine
DX: R10.9 Unspecified abdominal pain (principal); Z98.890 Other specified postprocedural states; Z85.048 Personal history of other malignant neoplasm of rectum, rectosigmoid junction, and anus; Z87.891 Personal history of nicotine dependence
CPT/HCPCS: 12345; 36415; 74176; 80053; 81001; 85025; 99281; 99283

== ENCOUNTER 2019-10-16 10:51 | Outpatient (CLI) | payer OTHER, SELFPAY ==
--- NOTE | 2019-10-16 11:16 | CT_ITS ---
WS: [id number] CT ABDOMEN PELVIS TECHNIQUE: Contrast-enhanced CT of the abdomen and pelvis with coronal and sagittal reformatted image s. CLINICAL INFORMATION: COLOSTOMY MALFUNCTION COMPARISON: Multiple prior CTs CT September 12, 20192018July 12, 2019 May 20, 2019 May 06, 2019 DLP: 975.[address] scans at [facility] use at least one of these dose optimization techniques: automat ed exposure control; mA and/or kV adjustment per patient size (includes targeted exams where dose is matched to clinical indication); or iterative reconstruction. FINDINGS: Postoperative changes sigmoid resection with left lower quadrant colostomy. Moderately distended loop s of fluid-filled small bowel and colon in the midabdomen and pelvis with small bowel loops measuring up to 3.0 cm with air- fluid levels. Somewhat prominent mucosal enhancement involving small bowel li leann related to treatment related changes. Air-fluid levels in distended colon. Lower quadrant colost yamileth appears patent. No focal transition points. This is similar in appearance to the previous imaging Stable Submucosal enhancement involving the sigmoid colon and rectum likely due to postoperative chong ges and treatment effect. Lung bases are well aerated. Liver is normal. Normal portal vein and spleni c vein. Normal spleen. Normal gastroesophageal junction. Bilateral double-J ureteral stents appear stable. Dilatation of the right renal pelvis with moderate right hydronephrosis has increased from previous. Improved hydronephrosis left kidney. Small bilateral renal cysts. Visualized pancreas is normal in appearance. Normal caliber abdominal ao rta. Small amount of fluid in the pelvis. Slight retrolisthesis L2 on L3. CT/CT abdomen pelvis w con* [id number] IMPRESSION: 1. Prior postoperative changes sigmoid resection with anastomosis. Left lower quadrant colostomy. 2. Colostomy appears decompressed and patent. No evidence of obstruction at th e ostomy site. 3. Moderately dilated fluid-filled loops of small and large bowel in the midab domen and pelvis with air-fluid levels. Consider intermittent partial obstructi on. This is similar in appearance to the prior examinations. 4. Bilateral double-J ureteral stents in place. Increased moderate right hydro nephrosis. Left hydronephrosis has improved.
[2019-10-16] MEDS: iohexol 300 mg/mL 100 mL Btl IV (12:11)
== END 2019-10-16 10:52 | disposition home or self-care (01) ==
LOC: RADWPI 10:53
PROVIDERS: Family Provider Family Medicine; PCP Family Medicine; Visit Provider Family Medicine
DX: K94.00 Colostomy complication, unspecified (principal); Z96.0 Presence of urogenital implants; N13.30 Unspecified hydronephrosis
CPT/HCPCS: 74177; Q9967

== ENCOUNTER 2019-10-16 17:13 | Inpatient (IN) | payer OTHER, SELFPAY ==
[2019-10-16 17:20] VITALS: BMI 19.2
[2019-10-16 17:22] VITALS: BP 129/69; PULSE 95; RESP 16; TEMP 36.8; O2SAT 94
--- NOTE | 2019-10-16 17:38 | W.ED.ABDPA2 ---
HPI - Abdominal Pain General: Chief Complaint: Abdominal Pain Stated Complaint: lower abd pain Time Seen by Provider: 10/16/19 17:21 History of Present Illness: HPI narrative: 59-year-old female presents emergency room for admission. She had a CT as an outpatient that showed a ill intermittent bowel obstruction with decompression of distal colon she has a known history of rectal colon CA and has a colostomy which has had poor output for the last several days. There have not been any bloody outfit patient has not had any vomiting but is been very nauseous. 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 Dr. Jeff had seen the patient and ordered the CT she is already talked to Dr. Sher he is agreed to take the patient for admission. Patient denies any recent cough cold fever sweats chills she has not been around anyone is been exposed COVID-19 she has not had any change in respiratory status cough or shortness of breath. MD elicited complaint: abdominal pain Pertinent past history: other (No output in colostomy for 2 to 3 days with abdominal cramping and pain) Onset (ago): day(s) (2 to 3 days) Pain Consistency: intermittent Location: Diffuse Severity: moderate Quality: cramping Radiation: none Migration to: no migration Exacerbating factors: nothing Relieving factors: nothing Associated Symptoms: Reports anorexia, bloating and change in bowel habits (No colostomy output); Denies chills, dysuria and fever(s) Review of Systems Const: Denies: fever(s), chills, body aches, change in appetite, fatigue or malaise ENMT: Denies: throat pain, ear or mastoid pain, nasal discharge or nasal congestion Card: Denies: chest pain, edema, dyspnea on exertion or orthopnea Resp: Denies: dyspnea, productive cough or non-productive cough GI: Reports: bloating and change in bowel habits (No colostomy output) : Denies: flank pain, difficulty voiding, dysuria, urinary frequency or urinary urgency Skin/Breast: Denies: rash or pruritus PFS ED PFSH: Medical History Gout Mitral valve prolapse Perforated diverticulum Rectal cancer Sees [facility] Surgical History History of appendectomy History of bilateral tubal ligation History of bladder surgery Family History Other CAD (coronary artery disease) Denies family history of Diabetes Hyperlipidemia Cancer Hypertension Social History Smoking and tobacco status: former smoker Alcohol intake: current Alcohol intake frequency: holidays/special occasions only Physical Exam Const: COMMON NORMALS: no acute distress GENERAL APPEARANCE: cooperative and comfortable ORIENTATION/CONSCIOUSNESS: Yes awake, Yes oriented to person, Yes oriented to place and Yes oriented to time Neck/C-Spine: COMMON NORMALS: no JVD Resp: COMMON NORMALS: normal respiratory effort, No retractions, No use of accessory muscles and clear to auscultation bilaterally AUSCULTATION: clear to auscultation bilaterally Cardio: COMMON NORMALS: no JVD, regular rate, regular rhythm and No murmurs present (Cardio) RATE: regular rate RHYTHM: regular rhythm GI: COMMON NORMALS: Soft to palpation and No hepatosplenomegaly present AUSCULTATION: Yes Hypoactive bowel sounds present and Yes High-pitched bowel sounds present PALPATION: Yes Soft to palpation, Yes Tenderness to palpation present (GI) (Diffuse), No Guarding due to palpation present (GI) and Yes No hepatosplenomegaly present OTHER: To mid back with a few milliliters of brownish liquid output no solid output Extremity: COMMON NORMALS: normal to inspection, capillary refill normal, no clubbing, cyanosis or edema, no calf tenderness and no pedal edema Neuro: SENSORIUM/ORIENTATION: Yes oriented to person, Yes oriented to place and Yes oriented to time Skin: COMMON NORMALS: no rashes or lesions noted GENERAL SKIN EXAM: no rashes or lesions noted Course Vital Signs: Vital signs: Vital Signs Temperature 98.2 F 10/16/19 17:22 Pulse Rate 95 10/16/19 17:22 Respiratory Rate 16 10/16/19 17:22 Blood Pressure 129/69 10/16/19 17:22 Pulse Oximetry 94 10/16/19 17:22 MDM - Abdominal Pain MDM Narrative: Medical decision making narrative: Reviewed patient examined her no sign of or evidence of any concern for COVID patient will be an admission to the floor Dr. Yeager is already aware and has written initial orders and labs. Discharge Plan Discharge Patient Disposition: Admitted As Inpatient Clinical Impression: Small bowel obstruction, Rectal cancer Condition: Stable Referrals: Ciera Jeff MD [Primary Care Provider] - Coding Level of Care Code ED Grain Trimmer for Michael Lilly
[2019-10-16 17:40] LABS: Basophils % 0.5 %; Eosinophils # 0.1 10^3/uL (0.0-0.8); Eosinophils % 1.8 %; Hematocrit 37.6 % (37.0-47.0); Hemoglobin 11.9 g/dL (11.5-15.3); Lymphocytes # 1.1 10^3/uL (0.8-4.8); Lymphocytes % 17.9 %; Mean Corpuscular HGB Conc 31.6 g/dL (30.0-36.0); Mean Corpuscular Hemoglobin 28.7 pg (28.0-34.0); Mean Corpuscular Volume 90.6 fL (81-99); Mean Platelet Volume 9.8 fL (7.4-10.4); Monocytes # 0.6 10^3/uL (0.2-0.9); Monocytes % 9.5 %; Neutrophils # 4.2 10^3/uL (1.8-7.7); Neutrophils % 69.8 %; Nucleated Red Blood Cells % 0 %; Platelet Count 196 10^3/cmm (130-400); Red Blood Count 4.15 10^6/uL (4.1-5.3); Red Cell Distribution Width 16.3 % (12.1-15.1)
[2019-10-16 17:50] VITALS: O2SAT 93
[2019-10-16 18:15] LABS: Alanine Aminotransferase 31 U/L (0-33); Albumin Level 3.6 g/dL (3.5-5.2); Alkaline Phosphatase 99 IU/L (35-105); Anion Gap 13.5 (5-19); Aspartate Amino Transferase 22 U/L (0-32); Blood Urea Nitrogen 9 mg/dL (6-20); Carbon Dioxide 31 mmol/L (22-29); Chloride 97 mmol/L (98-107); Globulin 2.5 g/dL (1.3-4.6); Glomerular Filtration Rate 64.1 mL/min (90-130); Glucose 127 mg/dL (65-115); Lipase 28 U/L (13-60); Osmolality Calculated 284 mOsm/kg (285-295); Potassium 3.5 mmol/L (3.5-5.1); Sodium 138 mmol/L (136-145); Total Bilirubin 0.2 mg/dL (0.15-1.2); Total Protein 6.1 g/dL (6.6-8.7)
--- NOTE | 2019-10-16 18:15 | XR_ITS ---
WS: [id number] XR chest 1V portable [id number] REASON FOR EXAM: pre op FINDINGS: A Mediport is noted on the right side in good position. The lung newberry are mildly hyper ae rated with decreased vascularity consistent with emphysema this changes. The heart is not enlarged. There is no pneumonia, pleural effusion, pulmonary edema, XR/XR chest 1V portable [id number] IMPRESSION: Emphysema this changes.
--- NOTE | 2019-10-16 18:15 | ECG_ITS ---
[facility] ED Test Date: 2019-10-16 Pat Name: Kathryn Marcus Department: Room: 255 Gender: Female Guest Service Manager: : 1960 Requested By: Kevan Hall Order Number: [id number] Lyudmila MD: Charles Junior M.D. Measurements Intervals [place] Rate: 86 P: 70 WA: 133 QRS: 51 QRSD: 73 T: 47 QT: 359 QTc: 430 Interpretive Statements SINUS RHYTHM POSSIBLE LEFT ATRIAL ENLARGEMENT [-0.1mV P WAVE IN V1/V2] No previous ECG available for comparison Electronically Signed On 10-16-2019 19:23:14 CDT by Charles Junior M.D. [id number]
--- NOTE | 2019-10-16 18:17 | PM.HP ---
Providers/Chief Complaint Primary Care Provider: Ciera Jeff MD Chief Complaint: lower abd pain History of Present Illness Kathryn Marcus is a 59 year old female with PMH of gout, perforated rectal cancer, intra-abdominal abscess post colectomy and colostomy done in bowel situation in May 2019 post radiation therapy and chemotherapy with last radiation therapy on June 29 week, bilateral hydronephrosis post bilateral ureteral stents who was sent in to the ER by primary care physician today. Pt has been having nausea for last 1 week with decreased output from colostomy for last 4 days. She states at baseline since surgery she has had normal output but since Monday her output has been decreasing and she started feeling nauseous and bloated for which her PCP ordered CT scan which showed SBO so her surgeon at [facility] asked her to be admitted. She denies any fever, abdominal pain, vomiting, hematemesis, bleeding from the colostomy, discharge around the colostomy. She states postradiation therapy she also developed bilateral hydronephrosis for which she had bilateral ureteral stent placed in the first week since then she has had urinary urgency and hesitancy along with occasional passing of urinary clots which seems to be her baseline now. Lastly past urinary blood clots was few days ago. She denies of having any dysuria, burning while passing urine more than baseline. She denies of having any cough, flulike symptoms, fever, chest pain, cramping in the legs, change in her diet, change in her pain medications recently. While examining in the ER patient was lying comfortably in bed without complaining of any pain with heart rate of 70 bpm blood pressure 130/80 mmHg and saturation 96% on room air. No blood work was available during the examination. Patient has been admitted for further evaluation and work-up for small bowel obstruction. Review of Systems Const: Denies: fever(s), chills, body aches, change in appetite, malaise, night sweats, diaphoresis, change in sleep pattern, daytime sleepiness or snoring Eyes: Denies: change in vision, blurry vision, photophobia, eye discomfort or eye discharge ENMT: Denies: throat pain, enlarged tonsils, hoarseness, mouth pain, oral sores, dry mouth, tinnitus, nasal congestion or post nasal drip Card: Denies: chest pain, palpitations, irregular heart rhythm, edema, swelling of feet/ankles, lightheadedness, syncope, pre-syncope, dyspnea on exertion, orthopnea, leg pain with exertion or acrocyanosis Resp: Denies: dyspnea, productive cough, non-productive cough, wheezing, stridor, pain on inspiration, change in phlegm color, hemoptysis or chest congestion GI: Reports: abdominal pain, nausea, constipation and bloating; Denies: vomiting, hematemesis, coffee ground emesis, dysphagia, heartburn, diarrhea, GI cramping, change in bowel habits, pain on defecation, hematochezia or melena : Reports: urinary frequency, urinary urgency and hematuria; Denies: flank pain, dysuria, urinary hesitancy or nocturia Musc: Denies: neck pain, back pain, extremity pain, joint pain, joint swelling, joint redness, joint stiffness or limited range of motion Neuro: Denies: headache(s), numbness in extremities, weakness in extremities, sensory changes, lack of coordination, difficulty walking, frequent falls, dizziness, vertigo, confusion, Slurred speech present, difficulty communicating thoughts or seizure-like activity Psych: Denies: anxiety, depression, mood swings, panic attacks, hopelessness or irritability Endo: Denies: polyuria, polydipsia, tired all the time, cold intolerance, excessive sweating, flushing or heat intolerance Coy/Lymph: Denies: easy bruising or easy bleeding All/Imm: Denies: tongue swelling, facial swelling or acute wheezing Medications/Allergies Home Medications Medication Instructions Recorded Confirmed Last Taken Type oxycodone 10 mg PO Q4H PRN 07/12/19 10/16/19 10/15/19 History polyethylene glycol 3350 [Miralax] 17 g PO DAILY PRN 07/12/19 10/16/19 10/16/19 History escitalopram oxalate [Lexapro] 10 mg PO DAILY 09/12/19 10/16/19 10/16/19 History mirabegron [Myrbetriq] 25 mg PO DAILY 09/12/19 10/16/19 10/16/19 History phenazopyridine 100 mg PO TID 09/12/19 10/16/19 10/16/19 History sennosides-docusate sodium 2 tab-cap PO DAILY 09/12/19 10/16/19 10/16/19 History [Senexon-S] tamsulosin [Flomax] 0.4 mg PO DAILY 10/16/19 10/16/19 10/16/19 History tolterodine 4 mg PO DAILY 10/16/19 10/16/19 10/16/19 History Allergies Allergy/AdvReac Type Severity Reaction Status Date / Time Penicillins Allergy ALGY-Anaphy Verified 10/16/19 18:05 laxis PFSH Acute PFSH: Medical History (Updated 10/16/19 @ 22:22 by Kevan Hall MD) Colostomy in place Gout Hydronephrosis Mitral valve prolapse Perforated diverticulum Rectal cancer Sees Dr. Maloney [place] Surgical History (Updated 10/16/19 @ 22:19 by Kevan Hall MD) H/O colectomy History of appendectomy History of bilateral tubal ligation History of bladder surgery S/P ureteral stent placement Family History Other CAD (coronary artery disease) Denies family history of Diabetes Hyperlipidemia Cancer Hypertension Social History Smoking and tobacco status: former smoker Alcohol intake: current Alcohol intake frequency: holidays/special occasions only Vitals/I&O/Wt Last Vital Signs Temp 98.2 F 10/16/19 17:22 Pulse 95 10/16/19 17:22 Resp 16 10/16/19 17:22 BP 129/69 10/16/19 17:22 Pulse Ox 93 10/16/19 17:50 Weight last 48 hrs Weight 58.967 kg Physical Exam Narrative: EXAM NARRATIVE: General: No acute distress, AO x3, frail, dehydrated HEENT: PERRLA, pupils bilaterally equal and reactive Chest: Normal vesicular breath sounds, no added sounds, equal good air entry bilaterally CVS: S1-S2 regular, no murmurs, no tachycardia, no gallops, no rubs Abdomen: Soft, nontender, no organomegaly, colostomy present- no granukation present or redness present, BS sluggish Neuro: No focal deficits, no facial deformity, AO x3, power 5/5 in all limbs Data : 10/16/19 17:30 10/16/19 17:30 A&P Assessment and plan (1) Small bowel obstruction: Status: Acute (2) Colostomy in place: Status: Acute (3) Rectal cancer: Status: Acute (4) S/P ureteral stent placement: Status: Acute (5) Hydronephrosis: Status: Acute Additional A&P Information Small bowel obstruction: Patient is post colectomy with colostomy in place for rectal cancer post radiation and chemotherapy with laceration therapy and august and surgery and May 2019. Check CBC, CMP, EKG, chest x-ray, PT/INR, lactate. CT abdomen done which shows 1. Prior postoperative changes sigmoid resection with anastomosis. Left lower quadrant colostomy. 2. Colostomy appears decompressed and patent. No evidence of obstruction at the ostomy site. 3. Moderately dilated fluid-filled loops of small and large bowel in the midabdomen and pelvis with air-fluid levels. Consider intermittent partial obstruction. This is similar in appearance to the prior examinations. 4. Bilateral double-J ureteral stents in place. Increased moderate right hydronephrosis. Left hydronephrosis has improved. Keep n.p.o. Normal saline at 75 beats per hour. Zofran 4 nausea and vomiting as needed. If patient has multiple episodes of vomiting will get her on NG tube placement. Serial abdominal examination. Abdominal series tomorrow morning. If patient does not improve by tomorrow morning by conservative treatment will consult surgery. Patient does not seem to have any fever, awaiting WBC and lactate levels so we will hold off on any antibiotics for now. Bilateral hydronephrosis: Post bilateral ureteral stenting: Patient symptoms seem to be at baseline. She does not have any renal angle tenderness, fever. We will continue to monitor. We will hold off on a chronic medication like Lexapro, mirabegron, oxycodone for now because of n.p.o. status. Can give morphine 1 mg before hours as needed for pain. Full code. Heparin 5000 every 12 for DVT prophylaxis along with SCDs. We will change medications as per the results of the blood work and clinical picture. Attestations Medical Necessity Statement*: Most likely more than 2 midnights for SBO Time Spent in Patient Care: Greater than 35 minutes (>than 50% of time spent in counselling and/or direct pt care on unit). Coding Level of Care Code Acute Cnc Field Service Engineer for g Fwd Diagnoses Small bowel obstruction K56.[address] Z93.3 Rectal cancer C20 S/P ureteral stent placement Z96.0 Hydronephrosis N13.30
[2019-10-16 18:45] LABS: Lactic Sepsis W/Reflex 0.9 mmol/L (0.5-2.2)
[2019-10-16 18:53] VITALS: BP 116/81; PULSE 81; O2SAT 93
[2019-10-16 19:18] LABS: Procalcitonin 0.05 ng/mL (0-0.5); Thyroid Stimulating Hormone 1.67 uIU/mL (0.27-4.20)
[2019-10-16 19:22] VITALS: BP 113/75; PULSE 82; RESP 18; TEMP 36.8; O2SAT 94
[2019-10-16 19:29] LABS: Iron 44 ug/dL (37-145); Percent Saturation 16.7 % (20-50); Total Iron Binding Capacity 263 mcg/dl; Unsaturated Iron Binding 219 ug/dL (112-347)
[2019-10-16] MEDS: heparin 5,000 unit/mL INJ 1 mL 5000 UNIT SUBCUT (20:19)
[2019-10-16] MEDS: bisacodyl 5 mg Tablet 10 MG PO (20:19)
[2019-10-16 20:25] VITALS: PULSE 84; RESP 17; O2SAT 94
[2019-10-16] MEDS: ipratropium-albuterol 3 mL Neb INHALATION (20:27)
[2019-10-16] MEDS: D5-NS 0.45% + KCL 20 mEq 20 MEQ/1,000 ML BAG 100 MEQ IV (20:36)
[2019-10-16 23:50] VITALS: BP 120/70; PULSE 91; RESP 18; TEMP 36.8; O2SAT 95
[2019-10-17] VITALS (7 sets, daily range): BP systolic 112–142; BP diastolic 66–84; PULSE 73–88; RESP 16–18; TEMP 36.8–37.1; O2SAT 93–98; BMI 19.2
[2019-10-17 05:02] LABS: Basophils % 0.5 %; Eosinophils # 0.1 10^3/uL (0.0-0.8); Eosinophils % 1.9 %; Hematocrit 33.4 % (37.0-47.0); Hemoglobin 10.4 g/dL (11.5-15.3); Lymphocytes # 0.9 10^3/uL (0.8-4.8); Lymphocytes % 15.6 %; Mean Corpuscular HGB Conc 31.1 g/dL (30.0-36.0); Mean Corpuscular Hemoglobin 28.7 pg (28.0-34.0); Mean Corpuscular Volume 92.3 fL (81-99); Mean Platelet Volume 9.6 fL (7.4-10.4); Monocytes # 0.6 10^3/uL (0.2-0.9); Monocytes % 10.9 %; Neutrophils % 70.6 %; Nucleated Red Blood Cells % 0 %; Platelet Count 155 10^3/cmm (130-400); Red Blood Count 3.62 10^6/uL (4.1-5.3); Red Cell Distribution Width 16.3 % (12.1-15.1); White Blood Count 5.7 10^3/uL (4.0-10.0)
[2019-10-17 05:32] LABS: Alanine Aminotransferase 25 U/L (0-33); Albumin Level 2.9 g/dL (3.5-5.2); Alkaline Phosphatase 86 IU/L (35-105); Anion Gap 11.9 (5-19); Aspartate Amino Transferase 20 U/L (0-32); Blood Urea Nitrogen 9 mg/dL (6-20); Calcium 8.7 mg/dL (8.5-10.5); Carbon Dioxide 27 mmol/L (22-29); Chloride 104 mmol/L (98-107); Glomerular Filtration Rate 73.4 mL/min (90-130); Glucose 113 mg/dL (65-115); Osmolality Calculated 285 mOsm/kg (285-295); Potassium 3.9 mmol/L (3.5-5.1); Sodium 139 mmol/L (136-145); Total Bilirubin 0.2 mg/dL (0.15-1.2); Total Protein 4.9 g/dL (6.6-8.7)
[2019-10-17] MEDS: D5-NS 0.45% + KCL 20 mEq 20 MEQ/1,000 ML BAG 100 MEQ IV (07:02)
--- NOTE | 2019-10-17 07:35 | PC.NURSE ---
The patient stated that she took a shower yesterday. she does not need one today
[2019-10-17] MEDS: heparin 5,000 unit/mL INJ 1 mL 5000 UNIT SUBCUT ×2 (07:44→17:26)
[2019-10-17] MEDS: morphine 4 mg/mL SDV 1 mL 2 MG IVP (07:49)
--- NOTE | 2019-10-17 08:00 | XR_ITS ---
WS: [id number] XR acute abdomen series [id number] REASON FOR EXAM: sbo FINDINGS: A Mediport is noted extending from the right side subclavian approach in good position. There is hyper aerated lungs seen bilaterally. Decreased vascularity is noted. And decreased heart si ze. AP upright abdomen shows a dilated right kidney and ureter stents seen in the right and left kidneys. There are scattered ileus formation in the abdomen with air-fluid levels. XR/XR acute abdomen series [id number] IMPRESSION: Obstructed right kidney with stent seen in position both kidneys. Low-grade adynamic ileus. A Mediport is seen in the chest Chronic obstructive pulmonary disease.
--- NOTE | 2019-10-17 14:01 | PC.CHAP ---
Pastoral Care Encounter/Spiritual Assessment Type of Contact [] Declined printing shop supervisor visit [] Patient/Family/Request visit [] Outpatient visit [] Follow-up visit [] Physician referral [] Code/Alert [X] Routine visit [] Staff referral [] Actively dying [] Patient sleeping [] Family support [] [] Out of room [] Palliative care [] [] Receiving care in room [] Pre-surgical visit [] Trauma [] Long length of stay [] ICU visit [] Other: Relational/Emotional Strength [] Patient feels connected with others/family/visitors/staff [] Distress [] Loneliness/isolation [] Abandonment Spirituality of Patient [] Person of Missy [] Attends Voodoo of their Missy [] Believes in Prayer [] Reads Bible or Christian materials [] There are Spiritual issues to be addressed District Sales Manager Interventions [] Prayer [] Active listening [] Non-anxious presence [] Spiritual/emotional support [] Crisis/trauma care [] Spiritual counseling [] Bereavement support [] Provided bereavement packet [] Provided Bible/devotional materials [] Provided toy/stuffed animal, coloring book to patient or family member [] Provided Communion [] Anointing/Alexander [] Salvation [] Completed spiritual assessment [] Other: Impact on Illness or Injury [] Angry [] Fearful [] Anxious [] Often cries [] Exhaustion [] Unable to work [] Unable to attend episcopal [] Unable to walk/stand [] Unable to read [] Unable to drive [] Unable to eat/drink [] Unable to sleep [] Unable to be with family [] Patient intubated [] Other: Summary Time spent with patient
--- NOTE | 2019-10-17 14:24 | PM.PN ---
Subjective Subjective: Interval history: No acute events overnight. Patient states she is feeling a lot better now. Patient had one bowel movement today morning. Just before the bowel movement she felt little bit of bloating and abdominal pain. She denies of having any nausea or vomiting at present. Patient states she is feeling hungry. Vitals and labs noted. Vitals/I&O/Wt Last Vital Signs Temp 98.4 F 10/17/19 11:33 Pulse 76 10/17/19 11:33 Resp 16 10/17/19 11:33 BP 112/66 10/17/19 11:33 Pulse Ox 94 10/17/19 11:33 10/16/19 10/17/19 10/17/19 22:59 06:59 14:59 Intake Total 1000 / 1000 840 / 840 Output Total 100 / 100 800 / 900 100 / 100 Balance -100 / -100 200 / 100 740 / 740 Weight last 48 hrs Weight 58.967 kg Weight 58.967 kg Physical Exam Narrative: EXAM NARRATIVE: General: No acute distress, AO x3, frail, dehydrated HEENT: PERRLA, pupils bilaterally equal and reactive Chest: Normal vesicular breath sounds, no added sounds, equal good air entry bilaterally CVS: S1-S2 regular, no murmurs, no tachycardia, no gallops, no rubs Abdomen: Soft, nontender, no organomegaly, colostomy present- no granukation present or redness present, BS sluggish Neuro: No focal deficits, no facial deformity, AO x3, power 5/5 in all limbs Data : 10/17/19 04:26 10/17/19 04:26 A&P Assessment and plan (1) Small bowel obstruction: Status: Acute (2) Colostomy in place: Status: Acute (3) Rectal cancer: Status: Acute (4) S/P ureteral stent placement: Status: Acute (5) Hydronephrosis: Status: Acute Additional A&P Information Small bowel obstruction: Patient is post colectomy with colostomy in place for rectal cancer post radiation and chemotherapy with laceration therapy and august and surgery and May 2019. Check CBC, CMP, EKG, chest x-ray, PT/INR, lactate. CT abdomen done which shows 1. Prior postoperative changes sigmoid resection with anastomosis. Left lower quadrant colostomy. 2. Colostomy appears decompressed and patent. No evidence of obstruction at the ostomy site. 3. Moderately dilated fluid-filled loops of small and large bowel in the midabdomen and pelvis with air-fluid levels. Consider intermittent partial obstruction. This is similar in appearance to the prior examinations. 4. Bilateral double-J ureteral stents in place. Increased moderate right hydronephrosis. Left hydronephrosis has improved. Seems to be resolving. Advance diet to full liquid diet today. Decrease fluid to 50 cc/h. Zofran 4 nausea and vomiting as needed. Serial abdominal examination. Abdominal series tomorrow morning. Patient does not seem to have any fever, awaiting WBC and lactate levels so we will hold off on any antibiotics for now. Bilateral hydronephrosis: Post bilateral ureteral stenting: Patient symptoms seem to be at baseline. She does not have any renal angle tenderness, fever. We will check urinalysis. We will continue to monitor. We will start chronic medication like Lexapro, mirabegron, oxycodone at lower dose of 5 every 6 hours as needed. Bowel regimen with lactulose, MiraLAX. Full code. Heparin 5000 every 12 for DVT prophylaxis along with SCDs. If patient tolerates diet well will advance her diet further. Attestations Medical Necessity Statement*: Small bowel obstruction Time Spent in Patient Care: Greater than 35 minutes Coding Level of Care Code Acute Wool Shearer for Michael Lilly Diagnoses Small bowel obstruction K56.[address] Z93.3 Rectal cancer C20 S/P ureteral stent placement Z96.0 Hydronephrosis N13.30
[2019-10-17] MEDS: phenazopyridine 100 mg Tablet PO ×2 (14:56→22:04)
[2019-10-17] MEDS: lactulose oral liq 20 gm/30 mL UDC PO (14:57)
[2019-10-17] MEDS: polyethylene glycol 3350 Pkt 17 gm PO (14:57)
[2019-10-17 17:07] LABS: Urine Color Orange (Yellow)
[2019-10-17 17:08] LABS: Bilirubin Urine Neg (NEGATIVE); Blood Urine 3+ (Negative); Glucose Urine UA Norm (Normal); Ketones Urine Negative (Negative); Leukocyte Esterase Urine 2+ (Negative); Nitrate Urine Negative (Negative); Protein Urine 1+ (Negative); Sulfosalicylic Acid Urine Positive (Negative); Urobilinogen Urine Neg (Negative); pH Urine 8 (5-7)
[2019-10-17 17:09] LABS: Add Urine Culture? Yes; Bacteria Urine 1+; RBC Urine TOO NUMEROUS TO CNT /hpf (0-2); WBC Urine 80-100 /hpf (0-5)
[2019-10-17] MEDS: oxyCODONE 5 mg IR Tab/Cap PO (22:04)
[2019-10-17] MEDS: D5-NS 0.45% + KCL 20 mEq 20 MEQ/1,000 ML BAG 50 MEQ IV (23:54)
[2019-10-18] VITALS (9 sets, daily range): BP systolic 122–150; BP diastolic 73–91; PULSE 77–94; RESP 16–18; TEMP 36.6–37.2; O2SAT 93–95
[2019-10-18] MEDS: heparin 5,000 unit/mL INJ 1 mL 5000 UNIT SUBCUT ×2 (05:18→18:23)
--- NOTE | 2019-10-18 06:42 | PC.NURSE ---
Shift Summary pt took oral meds well, had good urinary output, and only one c/o pain in back, relieved with oral pain medication. pt had very little output in colostomy however pt stated she was passing gas through it, pt slept well.
[2019-10-18] MEDS: oxyCODONE 5 mg IR Tab/Cap PO (07:35)
[2019-10-18] MEDS: sennosides-docusate Tablet 2 TAB PO (08:47)
[2019-10-18] MEDS: phenazopyridine 100 mg Tablet PO ×2 (08:48→15:38)
[2019-10-18] MEDS: tolterodine 2 mg Tablet 4 MG PO (08:48)
[2019-10-18] MEDS: escitalopram 10 mg Tablet PO (08:48)
[2019-10-18] MEDS: tamsulosin 0.4 mg Capsule PO (08:48)
[2019-10-18 09:04] LABS: Basophils % 0.8 %; Eosinophils # 0.1 10^3/uL (0.0-0.8); Eosinophils % 1.6 %; Hemoglobin 11.5 g/dL (11.5-15.3); Lymphocytes # 0.8 10^3/uL (0.8-4.8); Lymphocytes % 21.4 %; Mean Corpuscular HGB Conc 31.1 g/dL (30.0-36.0); Mean Corpuscular Hemoglobin 29.3 pg (28.0-34.0); Mean Corpuscular Volume 94.4 fL (81-99); Mean Platelet Volume 9.4 fL (7.4-10.4); Monocytes # 0.5 10^3/uL (0.2-0.9); Monocytes % 12.9 %; Neutrophils # 2.3 10^3/uL (1.8-7.7); Neutrophils % 62.8 %; Nucleated Red Blood Cells % 0 %; Platelet Count 158 10^3/cmm (130-400); Red Blood Count 3.92 10^6/uL (4.1-5.3); Red Cell Distribution Width 16.9 % (12.1-15.1); White Blood Count 3.7 10^3/uL (4.0-10.0)
[2019-10-18 09:16] LABS: Alanine Aminotransferase 36 U/L (0-33); Albumin Level 3.3 g/dL (3.5-5.2); Alkaline Phosphatase 91 IU/L (35-105); Anion Gap 12.9 (5-19); Aspartate Amino Transferase 31 U/L (0-32); Blood Urea Nitrogen 4 mg/dL (6-20); Calcium 9.1 mg/dL (8.5-10.5); Carbon Dioxide 28 mmol/L (22-29); Chloride 103 mmol/L (98-107); Globulin 1.9 g/dL (1.3-4.6); Glomerular Filtration Rate 73.4 mL/min (90-130); Glucose 100 mg/dL (65-115); Osmolality Calculated 286 mOsm/kg (285-295); Potassium 3.9 mmol/L (3.5-5.1); Sodium 140 mmol/L (136-145); Total Bilirubin 0.2 mg/dL (0.15-1.2); Total Protein 5.2 g/dL (6.6-8.7)
--- NOTE | 2019-10-18 13:35 | PM.DCS ---
Discharge Providers Date of Admission: 10/16/19 18:03 Date of Discharge: October 18, 2019 Attending Provider at Admission: Radha Yeager MD Attending Provider at Discharge: Kevan Hall MD Primary Care Provider: Ciera Jeff MD Diagnoses at Discharge Discharge Diagnosis (1) Small bowel obstruction: Status: Acute (2) Colostomy in place: Status: Acute (3) Rectal cancer: Status: Acute Problem details: Sees Dr. Maloney [place] (4) S/P ureteral stent placement: Status: Acute (5) Hydronephrosis: Status: Acute Reason for Visit Reason for Visit: lower abd pain Hospital Course Discharge Summary: Kathryn Marcus is a 59 year old female with PMH of gout, perforated rectal cancer, intra-abdominal abscess post colectomy and colostomy done in bowel situation in May 2019 post radiation therapy and chemotherapy with last radiation therapy on June 29 week, bilateral hydronephrosis post bilateral ureteral stents who was sent in to the ER by primary care physician today. Pt has been having nausea for last 1 week with decreased output from colostomy for last 4 days. She states at baseline since surgery she has had normal output but since Monday her output has been decreasing and she started feeling nauseous and bloated for which her PCP ordered CT scan which showed SBO so her surgeon at [facility] asked her to be admitted. She denies any fever, abdominal pain, vomiting, hematemesis, bleeding from the colostomy, discharge around the colostomy. She states postradiation therapy she also developed bilateral hydronephrosis for which she had bilateral ureteral stent placed in the first week since then she has had urinary urgency and hesitancy along with occasional passing of urinary clots which seems to be her baseline now. Lastly past urinary blood clots was few days ago. She denies of having any dysuria, burning while passing urine more than baseline. She denies of having any cough, flulike symptoms, fever, chest pain, cramping in the legs, change in her diet, change in her pain medications recently. While examining in the ER patient was lying comfortably in bed without complaining of any pain with heart rate of 70 bpm blood pressure 130/80 mmHg and saturation 96% on room air. No blood work was available during the examination. Patient was admitted to the floor for small bowel obstruction. She was treated conservatively with bowel regimen, decreasing pain medications, hydration and bowel rest. She responded well to the treatment. And was gradually advanced on a diet. At present she is doing fine with GI soft diet. She is advised to continue GI soft diet for next 1 week and advance gradually as tolerated. She is also advised to eat more fibrous food and maintain her hydration. Because of persistent dysuria since ureteral stent urine cultures were done and are awaited. As patient is afebrile, with no leukocytosis no IV antibiotics antibiotics are warranted for now. Urine cultures are important to see if she has any resistant bacteria to see if she needs suppressive therapy in the future. Physical Exam Narrative: EXAM NARRATIVE: General: No acute distress, AO x3, frail, dehydrated HEENT: PERRLA, pupils bilaterally equal and reactive Chest: Normal vesicular breath sounds, no added sounds, equal good air entry bilaterally CVS: S1-S2 regular, no murmurs, no tachycardia, no gallops, no rubs Abdomen: Soft, nontender, no organomegaly, colostomy present- no granulation present or redness present, BS sluggish but better Neuro: No focal deficits, no facial deformity, AO x3, power 5/5 in all limbs Discharge Data Data Completed and Pending: Completed Studies During Hospitalization Category Date Time Status XR acute abdomen series [id number] Routi ne Exams 10/17/19 08:00 Completed XR chest 1V blayne ble [id number] Stat Exams 10/16/19 18:15 Completed Pending at discharge Category Date Time Status Urine Culture Rou barbara Lab 10/17/19 15:27 Results Labs from last 24 hours 10/18/19 10/18/19 10/17/19 08:47 08:47 15:27 WBC 3.7 L RBC 3.92 L Hgb 11.5 Hct 37.0 MCV 94.4 MCH 29.3 MCHC 31.1 RDW 16.9 H Plt Count 158 MPV 9.4 Neut % (Auto) 62.8 Lymph % (Auto) 21.4 [place] % (Auto) 12.9 Eos % (Auto) 1.6 Baso % (Auto) 0.8 Neut # (Auto) 2.3 Lymph # (Auto) 0.8 [place] # (Auto) 0.5 Eos # (Auto) 0.1 Baso # (Auto) 0.0 Nucleated RBC % (a uto) 0 Nucleated RBCs # 0.0 Sodium 140 Potassium 3.9 Chloride 103 Carbon Dioxide 28 Anion Gap 12.9 BUN 4 L Creatinine 0.8 GFR Calculation 73.4 L Glucose 100 Calculated Osmolal ity 286 Calcium 9.1 Total Bilirubin 0.2 AST 31 ALT 36 H Alkaline Phosphata se 91 Total Protein 5.2 L Albumin 3.3 L Globulin 1.9 Urine Color Sutter Urine Appearance Sl cloudy A Urine pH 8 H Ur Specific Gravit y 1.010 Urine Protein 1+ H Urine Glucose (UA) Norm Urine Ketones Negative Urine Blood 3+ H Urine Nitrate Negative Urine Bilirubin Neg Prot Sulfosalicyli c Acd Positive Urine Urobilinogen Neg Ur Leukocyte Crystal ase 2+ H Urine RBC Too numerous to c nt H Urine WBC 80-100 H Ur Squamous Epith Cells None Urine Bacteria 1+ H Vitals: Last Vital Signs Temp 98.3 F 10/18/19 11:27 Pulse 84 10/18/19 11:27 Resp 17 10/18/19 11:27 BP 122/73 10/18/19 11:27 Pulse Ox 95 10/18/19 11:27 Discharge Plan Discharge Patient Disposition: Home, Self-Care Condition: Stable Prescriptions: Continued polyethylene glycol 3350 [Miralax] 17 gram/dose Powder 17 g PO DAILY PRN (Reason: Constipation) RF: 0 oxycodone 5 mg Tablet, Oral Only 10 mg PO Q4H PRN (Reason: Pain) RF: 0 tolterodine 4 mg capsule,extended release 24hr 4 mg PO DAILY RF: 0 Flomax 0.4 mg Capsule 0.4 mg PO DAILY RF: 0 diclofenac potassium 50 mg tablet 50 mg PO TID RF: 0 sennosides-docusate sodium [Senexon-S] 8.6-50 mg Tablet 2 tab-cap PO DAILY RF: 0 phenazopyridine 100 mg Tablet 100 mg PO TID RF: 0 escitalopram oxalate [Lexapro] 10 mg Tablet 10 mg PO DAILY RF: 0 Myrbetriq 25 mg Tablet Extended Release 24 Hr 25 mg PO DAILY RF: 0 Discharge Orders: Discharge Order (Routine); Ordered 10/18/19 Ordered By: Kevan Hall Referrals: Ciera Jeff MD [Primary Care Provider] - 7-10 days Discharge Diet: Advance as tolerated and GI Soft Discharge Activity: Resume usual activity Activity Restrictions/Additional Instructions: High fibre diet Maintain good hydration Try to decrease pain meds as possible Discharge Attestations Time Spent in Discharge Care*: greater than 30 min Specific Discharge Activities: Specific discharge activities: educating patient, discussing with pcp/other providers, discussing with housing case manager/social workers/dc planners, documenting/other paperwork and evaluating patient/reviewing data Status at Discharge: Cognitive status at discharge: cognitively intact, Behavioral status at discharge: cooperative, Functional status at discharge: independent ambulation Overall status at discharge: patient is back to baseline Quality Metrics Clinical Quality Measures During this hospital stay, did patient experience: None Coding Level of Care Code Acute Thread Cutter Tender for Chg Fwd Diagnoses Small bowel obstruction K56.[address] Z93.3 Rectal cancer C20 S/P ureteral stent placement Z96.0 Hydronephrosis N13.30
== END 2019-10-18 20:30 | disposition home or self-care (01) | DRG 389 ==
LOC: ER 17:56 → MEDSURG 18:27
PROVIDERS: Emergency Medicine; Family Medicine; Admitting Provider Student in an Organized Health Care Education/Training Program; PCP Family Medicine; Visit Provider Student in an Organized Health Care Education/Training Program
DX: K56.609 Unspecified intestinal obstruction, unspecified as to partial versus complete obstruction (principal); C20 Malignant neoplasm of rectum; N13.30 Unspecified hydronephrosis; M10.9 Gout, unspecified; Z90.49 Acquired absence of other specified parts of digestive tract; Z93.3 Colostomy status; Z92.3 Personal history of irradiation; Z92.21 Personal history of antineoplastic chemotherapy; Z96.0 Presence of urogenital implants; I34.1 Nonrheumatic mitral (valve) prolapse; Z87.891 Personal history of nicotine dependence; Z79.891 Long term (current) use of opiate analgesic
CPT/HCPCS: 12345; 36415; 36591; 71045; 74022; 80053; 81001; 83540; 83550; 83605; 83690; 84145; 84443; 85025; 85610; 87086; 93005; 96372; 96375; 97161; 99283; J1642; J1644; J2270

== ENCOUNTER 2019-12-23 00:57 | Inpatient (IN) | payer OTHER, SELFPAY ==
[2019-12-23] VITALS (12 sets, daily range): BP systolic 131–154; BP diastolic 78–91; PULSE 66–86; RESP 14–22; TEMP 36.2–37; O2SAT 95–97; BMI 19.2
--- NOTE | 2019-12-23 | XRR_ITS ---
PROCEDURE INFORMATION: Exam: XR Chest, 1 View Exam date and time: 12/23/2019 11:02 AM Age: 59 years old Clinical indication: Device placement; Ng tube; Prior surgery; Surgery type: Port; Additional info: Ng placement TECHNIQUE: Imaging protocol: XR of the chest Views: Frontal portable upright view of the chest. COMPARISON: CR XR chest 1V portable [id number] 10/16/2019 6:43 PM FINDINGS: Tubes, catheters and devices: The right internal jugular venous portacatheter tip is in the lower SVC. The nasogastric tube enters the stomach with the tip in the upper gastric body. Lungs: Stable left basilar pulmonary subsegmental atelectasis. The lungs are otherwise peripherally clear bilaterally. The pulmonary vasculature is normal. Pleural space: No pleural effusion. No pneumothorax. Heart/Mediastinum: The heart is normal in size and contour. Mediastinum: Stable. Bones/joints: Stable. XR/XR chest 1V portable [id number] IMPRESSION: 1. Nasogastric tube placement as above. 2. Stable left basilar pulmonary subsegmental atelectasis.
--- NOTE | 2019-12-23 | XRR_ITS ---
PROCEDURE INFORMATION: Exam: XR Chest, 1 View Exam date and time: 12/23/2019 7:37 AM Age: 59 years old Clinical indication: Device placement; Ng tube; Prior surgery; Surgery type: Port; Additional info: Ng placement TECHNIQUE: Imaging protocol: XR of the chest Views: Frontal portable view of the chest. COMPARISON: CR XR chest 1V portable [id number] 12/23/2019 2:59 AM FINDINGS: Tubes, catheters and devices: The nasogastric tube tip is at the gastroesophageal junction. The right internal jugular venous portacatheter tip is in the lower SVC. Lungs: Stable left basilar pulmonary subsegmental atelectasis. The lungs are otherwise peripherally clear bilaterally. The pulmonary vasculature is normal. Pleural space: No pleural effusion. No pneumothorax. Heart/Mediastinum: The heart is normal in size and contour. Mediastinum: Stable. Bones/joints: Stable right glenohumeral joint benign para-articular ossification. XR/XR chest 1V portable [id number] IMPRESSION: 1. Stable left basilar pulmonary subsegmental atelectasis. 2. No acute cardiopulmonary abnormality identified. 3. Nasogastric tube placement as above. Adjustment recommended.
--- NOTE | 2019-12-23 | XRR_ITS ---
PROCEDURE INFORMATION: Exam: XR Chest, 1 View Exam date and time: 12/23/2019 7:37 AM Age: 59 years old Clinical indication: Device placement; Ng tube; Prior surgery; Surgery type: Port; Additional info: Ng placement TECHNIQUE: Imaging protocol: XR of the chest Views: Frontal portable view of the chest. COMPARISON: CR XR chest 1V portable [id number] 12/23/2019 2:59 AM FINDINGS: Tubes, catheters and devices: The right internal jugular venous portacatheter tip is in the lower SVC. The nasogastric tube tip is at the gastroesophageal junction. Lungs: Stable left basilar pulmonary subsegmental atelectasis. The lungs are otherwise peripherally clear bilaterally. The pulmonary vasculature is normal. Pleural space: No pleural effusion. No pneumothorax. Heart/Mediastinum: The heart is normal in size and contour. Mediastinum: Stable. Bones/joints: Stable right glenohumeral joint para-articular benign ossification. Gastrointestinal tract: Low-attenuation contrast is present in the distal thoracic esophagus and stomach. XR/XR chest 1V portable [id number] IMPRESSION: 1. Nasogastric tube placement as above. Adjustment recommended. 2. Stable left basilar pulmonary subsegmental atelectasis.
--- NOTE | 2019-12-23 01:01 | W.ED.ABDPA2 ---
HPI - Abdominal Pain General: Chief Complaint: Abdominal Pain Stated Complaint: abd pain Time Seen by Provider: 12/23/19 00:59 History of Present Illness: HPI narrative: 59-year-old female with history of colon cancer she had a perforation back in May, and had surgery with a diverting ileostomy. She states the tumor still present in her belly. She has had radiation, and then chemotherapy. Her last dose was Monday, 7 days ago. She developed some vomiting on and off since Monday, and belly pain. She treated herself at home, by doing milk of magnesia, and finally today magnesium citrate. She continued to vomit at home and developed significant pain, to 9.5 out of 10. MD elicited complaint: abdominal pain Pertinent past history: other Onset (ago): day(s) Location: Diffuse Quality: cramping and stabbing Radiation: none Migration to: no migration Relieving factors: nothing Associated Symptoms: Reports change in stool character, GI cramping, nausea and vomiting; Denies dysuria, fever(s) and hematuria Review of Systems Const: Denies: fever(s) Eyes: Denies: change in vision or blurry vision ENMT: Denies: swelling of lips/tongue or sinus pain Card: Denies: chest pain, palpitations, irregular heart rhythm, edema, swelling of feet/ankles, dyspnea on exertion or orthopnea Resp: Denies: dyspnea, productive cough, non-productive cough or wheezing GI: Reports: nausea, vomiting, GI cramping and change in stool character : Denies: dysuria or hematuria Musc: Denies: back pain Skin/Breast: Denies: rash or erythema Neuro: Denies: headache(s), dizziness or vertigo Psych: Denies: anxiety PFSH ED PFSH: Medical History (Updated 10/16/19 @ 22:22 by Kevan Hall MD) Colostomy in place Gout Hydronephrosis Mitral valve prolapse Perforated diverticulum Rectal cancer Sees Dr. Maloney [place] Surgical History (Updated 10/16/19 @ 22:19 by Kevan Hall MD) H/O colectomy History of appendectomy History of bilateral tubal ligation History of bladder surgery S/P ureteral stent placement Family History Other CAD (coronary artery disease) Denies family history of Diabetes Hyperlipidemia Cancer Hypertension Social History Smoking and tobacco status: former smoker Alcohol intake: current Alcohol intake frequency: holidays/special occasions only Physical Exam Const: GENERAL APPEARANCE: well developed and ill appearing ORIENTATION/CONSCIOUSNESS: Yes oriented to person, Yes oriented to place and Yes oriented to time HENMT: COMMON NORMALS: normocephalic, external ears normal and Normal external nose present HEAD & SCALP: normocephalic FACE & SINUS: normal facial exam NOSE: Normal external nose present and No nasal discharge present EXTERNAL EAR: Yes external ears normal MOUTH: tongue normal Eye: COMMON NORMALS: Equal, round and reactive pupils present, EOMs intact bilaterally and conjunctivae normal EYELID: eyelids normal CONJUNCTIVA: Yes conjunctivae normal PUPIL: Yes Equal, round and reactive pupils present Neck/C-Spine: GENERAL: No tracheal deviation Chest: COMMONS NORMALS: normal inspection of the chest CHEST: No tenderness Resp: COMMON NORMALS: clear to auscultation bilaterally EFFORT & INSPECTION: No tachypneic, No respiratory distress, No retractions, No uses accessory muscles and No tracheal deviation AUSCULTATION: clear to auscultation bilaterally, no rhonchi, no wheezes and lung sounds not diminished Cardio: COMMON NORMALS: regular rate and regular rhythm RATE: regular rate RHYTHM: regular rhythm HEART SOUNDS: no murmurs PERIPHERAL PULSES: radial pulses present GI: INSPECTION: No abdominal distension AUSCULTATION: No Hyperactive bowel sounds present and No Hypoactive bowel sounds present PALPATION: Yes Tenderness to palpation present (GI) (Periumbilical), No Guarding due to palpation present (GI) and No Rigid due to palpation PERCUSSION: no dullness to percussion and no tympanic to percussion Neuro: SENSORIUM/ORIENTATION: Yes oriented to person, Yes oriented to place and Yes oriented to time Psych: COMMON NORMALS: mental status grossly normal Skin: COMMON NORMALS: no rashes or lesions noted GENERAL SKIN EXAM: no rashes or lesions noted Course Consultations: Consultation #1: sherie Time: 02:35 Vital Signs: Vital signs: Vital Signs Temperature 97.8 F 12/23/19 00:58 Pulse Rate 75 12/23/19 00:58 Respiratory Rate 20 H 12/23/19 01:40 Blood Pressure 147/87 12/23/19 00:58 Pulse Oximetry 97 12/23/19 01:40 MDM - Abdominal Pain MDM Narrative: Medical decision making narrative: 59-year-old lady with a colostomy and a history of colon cancer as above. She presents with vomiting and belly pain with some distention. NG tube is in place, but is in the distal esophagus, and is being advanced currently. We will repeat a chest x-ray. Her white blood cell count is 4. She is not neutropenic. Her hemoglobin is 13. Her electrolytes are normal. She has a small bowel obstruction with a transition point by CT. A small amount of free fluid is present, but no free air to suggest perforation. She will be admitted. Lab Data: Labs: Lab Results 12/23/19 12/23/19 12/23/19 Range/Units 01:10 01:10 01:10 WBC 4.1 (4.0-10.0) 10^3/ uL RBC 3.96 L (4.1-5.3) 10^6/u L Hgb 12.9 (11.5-15.3) g/dL Hct 40.3 (37.0-47.0) % MCV 101.8 H (81-99) fL MCH 32.6 (28.0-34.0) pg MCHC 32.0 (30.0-36.0) g/dL RDW 15.3 H (12.1-15.1) % Plt Count 155 (130-400) 10^3/c mm MPV 10.1 (7.4-10.4) fL Neut % (Auto) 65.6 % Lymph % (Auto) 22.1 % [place] % (Auto) 7.9 % Eos % (Auto) 3.2 % Baso % (Auto) 0.5 % Neut # (Auto) 2.67 (1.8-7.7) 10^3/u L Lymph # (Auto) 0.9 (0.8-4.8) 10^3/u L [place] # (Auto) 0.3 (0.2-0.9) 10^3/u L Eos # (Auto) 0.1 (0.0-0.8) 10^3/u L Baso # (Auto) 0.0 (0.0-0.1) 10^3/u L Nucleated RBC % (a uto) 0 % Nucleated RBCs # 0.0 /100WBC Sodium 139 (136-145) mmol/L Potassium 4.0 (3.5-5.1) mmol/L Chloride 101 (98-107) mmol/L Carbon Dioxide 27 (22-29) mmol/L Anion Gap 15.0 (5-19) BUN 11 (6-20) mg/dL Creatinine 0.8 (0.5-0.9) mg/dL GFR Calculation 73.4 L (90-130) mL/min Glucose 137 H (65-115) mg/dL Calculated Osmolal ity 286 (285-295) mOsm/k g Lactate 2.1 (0.5-2.2) mmol/L Calcium 8.9 (8.5-10.5) mg/dL Total Bilirubin 0.4 (0.15-1.2) mg/dL AST 17 (0-32) U/L ALT 13 (0-33) U/L Alkaline Phosphata se 94 (35-105) IU/L Total Protein 6.2 L (6.6-8.7) g/dL Albumin 4.0 (3.5-5.2) g/dL Globulin 2.2 (1.3-4.6) g/dL Lipase 31 (13-60) U/L Discharge Plan Discharge Prescriptions: No Action polyethylene glycol 3350 [Miralax] 17 gram/dose Powder 17 g PO DAILY PRN (Reason: Constipation) RF: 0 oxycodone 5 mg Tablet, Oral Only 10 mg PO Q4H PRN (Reason: Pain) RF: 0 tolterodine 4 mg capsule,extended release 24hr 4 mg PO DAILY RF: 0 Flomax 0.4 mg Capsule 0.4 mg PO DAILY RF: 0 diclofenac potassium 50 mg tablet 50 mg PO TID RF: 0 sennosides-docusate sodium [Senexon-S] 8.6-50 mg Tablet 2 tab-cap PO DAILY RF: 0 phenazopyridine 100 mg Tablet 100 mg PO TID RF: 0 escitalopram oxalate [Lexapro] 10 mg Tablet 10 mg PO DAILY RF: 0 Myrbetriq 25 mg Tablet Extended Release 24 Hr 25 mg PO DAILY RF: 0 Coding Level of Care Code ED Floor Coverings Installer for Chg Fwd Exam Comprehensive
--- NOTE | 2019-12-23 01:02 | CTR_ITS ---
PROCEDURE INFORMATION: Exam: CT Abdomen And Pelvis With Contrast Exam date and time: 12/23/2019 1:09 AM Age: 59 years old Clinical indication: Nausea and vomiting; Abdominal pain; Prior surgery; Surgery date: 6+ months; Surgery type: Colectomy, appy, bladder, hyst; Patient HX: HX colon cancer; Additional info: Abd pain vomiting TECHNIQUE: Imaging protocol: Computed tomography of the abdomen and pelvis with intravenous contrast. Radiation optimization: All CT scans at this facility use at least one of these dose optimization techniques: automated exposure control; mA and/or kV adjustment per patient size (includes targeted exams where dose is matched to clinical indication); or iterative reconstruction. Contrast material: VISI; Contrast volume: 95 ml; Contrast route: INTRAVENOUS (IV); COMPARISON: CT abdomen pelvis w con* [id number] 2019-10-16 12:09 RADIATION DOSE METRICS: Total DLP (mGy-cm): 312.35 FINDINGS: Mediastinal space: Small gastroesophageal sliding type hiatal hernia. Metallic presumed temperature probe in the distal esophagus. Liver: Normal. No mass. Gallbladder and bile ducts: Normal. No calcified stones. No ductal dilation. Pancreas: Normal. No ductal dilation. Spleen: Normal. No splenomegaly. Adrenals: Normal. No mass. Kidneys and ureters: Small, less than 5 mm, renal hypodensity. Highly likely to be benign and does not require follow-up imaging or biopsy per ACR. Small left kidney extrarenal pelvis. Duplex right kidney. Moderate right hydronephrosis and hydroureter of the upper and lower moiety with a large right kidney extrarenal pelvis, no specific cause of obstruction. Recommend follow-up with urology, patient previously had ureteral catheters. Duplex right kidney. Urothelial enhancement. Stomach and bowel: Left abdominal colostomy. Distended small bowel loops with air-fluid levels, and transition point in the pelvis and decompressed more distal small bowel. Evidence of small bowel obstruction. Distal colectomy. Ill-defined stranding, fluid, and soft tissue density in the pelvis, likely a sequela previous surgical resection. Rectal tube is present. Appendix: No evidence of appendicitis. Intraperitoneal space: Small amount of free fluid. Vasculature: Unremarkable. No abdominal aortic aneurysm. Lymph nodes: Unremarkable. No enlarged lymph nodes. Bladder: Unremarkable as visualized. Reproductive: Unremarkable as visualized. Bones/joints: Mild dextroconvex lumbar curvature. Soft tissues: Unremarkable. Other findings: Significantly improved presacral stranding. CT/CT abdomen pelvis w con* [id number] IMPRESSION: 1. Distended small bowel loops with air-fluid levels, and transition point in the pelvis and decompressed more distal small bowel. Evidence of small bowel obstruction. 2. Small amount of free fluid. 3. Duplex right kidney. Moderate right hydronephrosis and hydroureter of the upper greater than lower moiety with a large right kidney extrarenal pelvis. Transition to normal caliber where the ureters join in the mid right abdomen. Recommend follow-up with urology, patient previously had ureteral catheters. Radiation Dose CTDIVOL = (mGy): DLP = 312.35 (mGy-cm)
[2019-12-23] MEDS: sodium chloride 0.9% 1,000 ML 999 ML IV (01:15)
[2019-12-23 01:18] LABS: Basophils % 0.5 %; Eosinophils # 0.1 10^3/uL (0.0-0.8); Eosinophils % 3.2 %; Hematocrit 40.3 % (37.0-47.0); Hemoglobin 12.9 g/dL (11.5-15.3); Lymphocytes # 0.9 10^3/uL (0.8-4.8); Lymphocytes % 22.1 %; Mean Corpuscular Hemoglobin 32.6 pg (28.0-34.0); Mean Corpuscular Volume 101.8 fL (81-99); Mean Platelet Volume 10.1 fL (7.4-10.4); Monocytes # 0.3 10^3/uL (0.2-0.9); Monocytes % 7.9 %; Neutrophils # 2.67 10^3/uL (1.8-7.7); Neutrophils % 65.6 %; Nucleated Red Blood Cells % 0 %; Platelet Count 155 10^3/cmm (130-400); Red Blood Count 3.96 10^6/uL (4.1-5.3); Red Cell Distribution Width 15.3 % (12.1-15.1); White Blood Count 4.1 10^3/uL (4.0-10.0)
--- NOTE | 2019-12-23 01:28 | PC.NURSE ---
pt requesting pain medication. notified
[2019-12-23 01:30] LABS: Alanine Aminotransferase 13 U/L (0-33); Alkaline Phosphatase 94 IU/L (35-105); Aspartate Amino Transferase 17 U/L (0-32); Blood Urea Nitrogen 11 mg/dL (6-20); Calcium 8.9 mg/dL (8.5-10.5); Carbon Dioxide 27 mmol/L (22-29); Chloride 101 mmol/L (98-107); Globulin 2.2 g/dL (1.3-4.6); Glomerular Filtration Rate 73.4 mL/min (90-130); Glucose 137 mg/dL (65-115); Lactate (Lactic Acid level) 2.1 mmol/L (0.5-2.2); Lipase 31 U/L (13-60); Osmolality Calculated 286 mOsm/kg (285-295); Sodium 139 mmol/L (136-145); Total Bilirubin 0.4 mg/dL (0.15-1.2); Total Protein 6.2 g/dL (6.6-8.7)
[2019-12-23] MEDS: ondansetron 2 mg/ML SDV 2 mL 4 MG IVP ×3 (01:35→17:36)
[2019-12-23] MEDS: fentaNYL 50 mcg/mL INJ 2mL 100 MCG IVP (01:40)
[2019-12-23] MEDS: iodixanol 320 mg/mL 100mL Btl IV (01:52)
--- NOTE | 2019-12-23 02:24 | XRR_ITS ---
PROCEDURE INFORMATION: Exam: XR Chest, 1 View Exam date and time: 12/23/2019 3:13 AM Age: 59 years old Clinical indication: Device placement; Ng tube; Prior surgery; Surgery type: Port TECHNIQUE: Imaging protocol: XR of the chest Views: Frontal portable upright view of the chest. COMPARISON: CR XR chest 1V portable [id number] 10/16/2019 6:43 PM FINDINGS: Tubes, catheters and devices: The feeding tube tip is at the gastroesophageal junction. The right internal jugular venous portacatheter tip is in the lower SVC. Lungs: Mild left basilar pulmonary subsegmental atelectasis. The lungs are otherwise peripherally clear bilaterally. The pulmonary vasculature is normal. Pleural space: No pleural effusion. No pneumothorax. Heart/Mediastinum: The heart is normal in size and contour. Mediastinum: Stable. Bones/joints: Stable. Mild rightward upper lumbar spinal curvature. Benign-appearing 2.1 cm inferior right glenohumeral joint para-articular ossification. XR/XR chest 1V [id number] IMPRESSION: 1. Feeding tube placement as above. Adjustment recommended. 2. Mild left basilar pulmonary subsegmental atelectasis. 3. Central venous catheter placement as above.
--- NOTE | 2019-12-23 02:24 | PC.NURSE ---
pt stating pain has returned. Dr notified, vo obtained to connect NG tube to wall suction. Dr also ordered to advance NG tube 2-3in due to CT revealing tube in esophageal vault
[2019-12-23] MEDS: cetacaine Spray 5 gm Can 1 SPRAY TOPICAL (02:28)
[2019-12-23 02:42] LABS: Add Urine Microscopic? NO; Bilirubin Urine Neg (NEGATIVE); Blood Urine Neg (Negative); Glucose Urine UA Norm (Normal); Ketones Urine Negative (Negative); Leukocyte Esterase Urine Negative (Negative); Nitrate Urine Negative (Negative); Protein Urine Neg (Negative); Sulfosalicylic Acid Urine Negative (Negative); Urine Appearance Clear (CLEAR); Urine Color Yellow (Yellow); Urobilinogen Urine Norm (Negative); pH Urine 9 (5-7)
--- NOTE | 2019-12-23 02:45 | PM.HP ---
Providers/Chief Complaint Primary Care Provider: Ciera Jeff MD Chief Complaint: abd pain History of Present Illness Kathryn Brice is a 59 year old female PMH of , perforated rectal cancer, intra-abdominal abscess post colectomy and diverting colostomy done in May 2019 status post radiation therapy and chemotherapy, bilateral hydronephrosis post bilateral ureteral stents status post removal who is coming in for chief complaint of nausea, vomiting. Patient is stating that on Monday her symptoms started after eating egg rolls, she started having abdominal pain, she has been trying milk of magnesia, mag citrate to relieve her symptoms but was unsuccessful, she had tried to eat but was not able to keep anything down, today her abdominal pain started getting worse she has had more than 10 episodes of emesis hence decided to come to the hospital for further evaluation. She called 911, EMT put NG tube at the site and brought her to the emergency department. Her NG tube was in esophagus on arrival it was advanced, awaiting another x-ray to confirm, NG tube is not draining any fluid at the time of my evaluation. Patient denying fever, hematemesis, hemoptysis, bleed per rectum. She is endorsing liquid output from her colostomy bag. Diagnostics in the ER revealed normal CBC and BMP, CT abdomen revealed small bowel obstruction. No focal signs of peritonitis Review of Systems Const: Reports: chills, body aches and fatigue; Denies: fever(s) Eyes: Denies: change in vision ENMT: Denies: throat pain Card: Denies: chest pain Resp: Denies: dyspnea GI: Reports: abdominal pain, nausea and vomiting : Denies: flank pain, difficulty voiding or urinary frequency Musc: Denies: neck pain Skin/Breast: Denies: rash Neuro: Denies: headache(s) Psych: Denies: anxiety Endo: Denies: polyuria Coy/Lymph: Denies: easy bruising All/Imm: Denies: urticaria Medications/Allergies Home Medications Medication Instructions Recorded Confirmed Last Taken Type oxycodone 10 mg PO Q4H PRN 07/12/19 10/16/19 10/15/19 History polyethylene glycol 3350 [Miralax] 17 g PO DAILY PRN 07/12/19 10/16/19 10/16/19 History Myrbetriq 25 mg PO DAILY 09/12/19 10/16/1910/15/20 History escitalopram oxalate [Lexapro] 10 mg PO DAILY 09/12/19 10/16/19 10/16/19 History phenazopyridine 100 mg PO TID 09/12/19 10/16/19 10/16/19 History sennosides-docusate sodium 2 tab-cap PO DAILY 09/12/19 10/16/19 10/16/19 History [Senexon-S] Flomax 0.4 mg PO DAILY 10/16/19 10/16/19 10/16/19 History tolterodine 4 mg PO DAILY 10/16/19 10/16/19 10/16/19 History diclofenac potassium 50 mg PO TID 10/17/19 10/17/19 10/16/19 14:00 History Allergies Allergy/AdvReac Type Severity Reaction Status Date / Time Penicillins Allergy ALGY-Anaphy Verified 10/16/19 18:05 laxis PFSH Acute PFSH: Medical History Colostomy in place Gout Hydronephrosis Mitral valve prolapse Perforated diverticulum Rectal cancer Sees Dr. Maloney [place] Surgical History H/O colectomy History of appendectomy History of bilateral tubal ligation History of bladder surgery S/P ureteral stent placement Family History Other CAD (coronary artery disease) Denies family history of Diabetes Hyperlipidemia Cancer Hypertension Social History (Updated 12/23/19 @ 03:10 by Yulia Henderson MD) Smoking and tobacco status: former smoker Alcohol intake: current Alcohol intake frequency: holidays/special occasions only Substance/Drug Use: never Household members: family Housing: House Vitals/I&O/Wt Last Vital Signs Temp 97.8 F 12/23/19 00:58 Pulse 75 12/23/19 00:58 Resp 20 H 12/23/19 01:40 BP 147/87 12/23/19 00:58 Pulse Ox 97 12/23/19 01:40 Weight last 48 hrs Weight 58.967 kg Physical Exam Narrative: EXAM NARRATIVE: This is a middle-aged female currently in distress because of small bowel obstruction and mild marilin pain NG tube to suction without active drainage S1, S2 no tachycardia or heart failure Clinically dehydrated Loss of eyebrows Malnourished Abdomen soft, no active signs of peritonitis, colostomy bag has brown liquid content, no active emesis Lungs are clear to auscultation Neurologically nonfocal exam EOMI, PERRLA Appropriate mood and affect No lower extremity edema gangrene or ulcer Data : 12/23/19 01:10 12/23/19 01:10 A&P Assessment and plan (1) Small bowel obstruction: Status: Acute (2) Hydronephrosis: Status: Acute (3) Rectal cancer: Status: Acute (4) Abdominal pain: Status: Acute Additional A&P Information Recurrent small bowel obstruction with underlying rectal cancer Status post radiotherapy(40 cycles), chemotherapy, no extensive metastases reported as per the patient NG to suction not draining any active fluid NG tube has been advanced on arrival (it was found to be in the esophagus) Repeating imaging to confirm the placement Currently not in any active distress, analgesia with Dilaudid, maintenance fluid with D5 half-normal saline Colostomy bag draining liquid brown content No active signs of peritonitis No acute indication for surgical consult Unilateral hydronephrosis 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 D5 half-normal saline maintenance rate fluid Full code DVT prophylaxis SCDs would avoid starting anticoagulant in case she would require surgical intervention Patient denies previous history of PE or DVT Attestations Medical Necessity Statement*: Anticipating stay in the hospital cross more than 2 midnights currently needs management for small bowel obstruction without peritonitis currently requiring NG tube to suction Time Spent in Patient Care: (>than 50% of time spent in counselling and/or direct pt care on unit). 45mins Coding Level of Care Code Acute Population Health Manager for Chg Fwd Diagnoses Small bowel obstruction K56.609 Hydronephrosis N13.30 Rectal cancer C20 Abdominal pain R10.9
[2019-12-23] MEDS: metoclopramide 5 mg/mL SDV 2 mL 10 MG IVP (02:51)
--- NOTE | 2019-12-23 02:51 | PC.NURSE ---
pt states she is still having significant nausea after NG tube advancement. Dr notified. vo obtained for reglan. pt reports some improvement after adm
[2019-12-23] MEDS: fentaNYL 50 mcg/mL INJ 2mL 150 MCG IVP (03:30)
[2019-12-23] MEDS: sodium chloride 0.9% 500 ML 999 ML IV (03:41)
--- NOTE | 2019-12-23 04:31 | PC.NURSE ---
pt transport delayed due to difficulty securing NG tube
[2019-12-23 04:58] LABS: C Reactive Protein 1.4 mg/L (0.0-4.9)
[2019-12-23] MEDS: dextrose 5%-sod chloride 0.45% 1,000 ML 75 ML IV ×2 (05:43→18:34)
--- NOTE | 2019-12-23 05:56 | PC.NURSE ---
pt's daughter Diamond notified of inpatient room number and visitor policy
[2019-12-23] MEDS: magnesium hydroxide 30 mL UDC 15 ML PO (07:13)
[2019-12-23] MEDS: HYDROmorphone 1 mg/mL INJ 1 mL 2 MG IVP ×3 (11:14→22:11)
--- NOTE | 2019-12-23 11:43 | P.PN_ITS ---
Subjective Subjective: Interval history: Patient reports feeling better. Denies shortness of breath or chest pain. Her NG tube does not have any output this morning. Ostomy has some liquid stool. She has tenderness in the right lower quadrant. Rest of the abdomen is benign and nontender on palpation. Vitals/I&O/Wt Last Vital Signs Temp 97.2 F L 12/23/19 11:35 Pulse 72 12/23/19 11:35 Resp 18 12/23/19 11:35 BP 153/91 12/23/19 11:35 Pulse Ox 96 12/23/19 11:35 12/22/19 12/23/19 12/23/19 22:59 06:59 14:59 Output Total 200 / 200 Balance -200 / -200 Weight last 48 hrs Weight 58.967 kg Physical Exam Const: COMMON NORMALS: no acute distress and patient oriented x3 Resp: COMMON NORMALS: normal respiratory effort and clear to auscultation bilaterally AUSCULTATION: clear to auscultation bilaterally Cardio: COMMON NORMALS: regular rate, regular rhythm and S2 normal heart sound present RATE: regular rate RHYTHM: regular rhythm HEART SOUNDS: S2 normal heart sound present OTHER: No lower extremity edema GI: COMMON NORMALS: Normal to inspection, nondistended, normoactive bowel soun ds present and Soft to palpation PALPATION: Yes Soft to palpation and Yes Tenderness to palpation present (GI) Details: RLQ Neuro: COMMON NORMALS: patient oriented x3 and no focal motor deficits Data : 12/23/19 01:10 12/23/19 01:10 A&P Assessment and plan (1) Small bowel obstruction: This appears to be secondary to ileus Status: Acute (2) Hydronephrosis: Does not appear to have any underlying infection. Status: Acute (3) Rectal cancer: Status: Acute (4) Abdominal pain: Status: Acute Additional A&P Information Recurrent small bowel obstruction with underlying rectal cancer Status post radiotherapy(40 cycles), chemotherapy, no extensive metastases reported as per the patient NG to suction not draining any active fluid NG tube has been advanced on arrival (it was found to be in the esophagus) Repeating imaging to confirm the placement Currently not in any active distress, analgesia with Dilaudid, maintenance fluid with D5 half-normal saline Colostomy bag draining liquid brown content No active signs of peritonitis No acute indication for surgical consult Unilateral hydronephrosis 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 This could be secondary to fibrosis post radiation. Her CT scan approximately 2 months ago showed worsening hydronephrosis on the right compared to previous. Patient may need to have reevaluation and placement of the stent again therefore case was discussed with Dr. Tim who will see patient in consultation. Urinary tract infection cannot be completely ruled out despite negative UA. We will continue close monitoring. Start patient on clear liquid diet. D5 half-normal saline maintenance rate fluid Full code DVT prophylaxis SCDs would avoid starting anticoagulant in case she would require surgical intervention Patient denies previous history of PE or DVT Attestations Medical Necessity Statement*: Patient with signs and symptoms of small bowel obstruction and hydronephrosis requires close inpatient monitoring and treatment until deemed safe for discharge. Time Spent in Patient Care: 16 - 35 minutes Coding Level of Care Code Acute Transcription Specialist for Joeg Jerod Diagnoses Small bowel obstruction K56.609 Hydronephrosis N13.30 Rectal cancer C20 Abdominal pain R10.9
--- NOTE | 2019-12-23 15:11 | P.CONIM_ITS ---
Providers/Reason For Consult Consulting Physican/Specialty*: Urology/Tim Reason for Consult*: Bilateral ureteral obstruction Attending Physician: Jeromy Arias MD Primary Care Provider: Ciera Jeff MD History of Present Illness History of Present Illness Kathryn Brice is a 59 year old female who I evaluated for the first time today at the request of Dr. Arias for bilateral hydronephrosis. She has a very complex history with the summary as follows: 1. Diagnosed with ruptured bowel in May with suspicion for either diverticulitis or malignant process.. Transferred to [place] where surgical drainage was performed. Diagnosed with cancer I believe on exploration and colostomy formation. Was later treated with chemotherapy and then in June radiation therapy as well. 2. In June [address] scan here to have developed new onset bilateral hydronephrosis. 3. In August 2019 at [place] she underwent bilateral ureteral stenting. 4. September [address] scan here that confirmed this placement of the stents but on the RIGHT side it appeared that she had a at least partially duplicated system with the upper pole moiety being drained by the stent and the lower pole moiety not being drained. On retrospective review of old CT scans the duplication could be identified. 5. She had an absolutely horrible experience with the stents. Described as chronic severe pain with the only time she could have any relief was when she was laying down flat. Had dribbling of urine all the time, skin irritation as a consequence of that, and was completely debilitated per her report. Ultimately she convinced the urologist at [place] to remove the stents. He apparently was very reluctant to do so based on the likelihood of progressive obstructive concerns related to the malignant process or fibrosis from radiation. Since the stents were removed in September she knows of no data that supports renal failure progression etc. 6. It is likely, per her report, that she will be undergoing exploratory surgery with removal of the cancer and possibly ureteral reconstruction although it is not clear as to the details of the latter. The dates have not been set for that but apparently a series of imaging, including MRI, recently showed conditions favorable for that approach soon. 7. She was admitted this stay with mid lower abdominal pain, nausea, vomiting consistent with a small bowel obstruction. Has had no back pain or renal colicky symptoms. In fact during this entire time with the development of bilateral hydronephrosis she has had no renal colicky symptoms which goes along with a slower extrinsic process. CT scan showed significantly dilated small bowel consistent with a small bowel obstruction and a picture of stable hydronephrosis compared with prior films. 8. She is adamantly opposed to replacement of the stents. We did discuss the potential difference in symptoms related to metallic stents versus flexible stents as well as the difference in potential efficacy of metallic versus flexible stents We also reviewed drainage options via percutaneous nephrostomies as a temporizing method while waiting for more definitive treatment if her renal fu nction deteriorates. At this point her creatinine is well preserved and she has a large urine output. I do not think that that is something we could count on for the long-term though. She understands that. I also discussed with her that if we decide to put stents up because of progressive symptoms or deterioration of renal function, she might require flexible ureteroscopy to identify the bifurcation of the right ureter if it is not complete duplication to the level of the bladder. This might be difficult with extrinsic compression at which point percutaneous nephrostomy tubes would be necessary. Currently I do not recommend ureteral stent placement given all of the above variables. I do not think her symptoms now are related to the urinary tract. She has no flank pain or CVA tenderness or upper quadrant tenderness on either side. Most of her symptoms have been related to lower abdominal location Review of Systems Const: Reports: fatigue; Denies: fever(s) or chills Eyes: Denies: change in vision ENMT: Denies: throat pain Card: Denies: chest pain or palpitations Resp: Denies: dyspnea or productive cough GI: Reports: abdominal pain, nausea and vomiting : Reports: urinary frequency, urinary urgency and urinary incontinence; Denies: flank pain, difficulty voiding or oliguria Musc: Denies: neck pain or back pain Skin/Breast: Denies: rash or erythema Neuro: Denies: Slurred speech present or seizure-like activity Psych: Denies: memory loss Endo: Denies: polyuria or polydipsia Coy/Lymph: Denies: easy bruising or easy bleeding All/Imm: Denies: urticaria Meds/Allergies Home Medications and Allergies Home Medications Medication Instructions Recorded Confirmed Last Taken Type oxycodone 10 mg PO Q6H PRN 07/12/19 12/23/19 10/15/19 History polyethylene glycol 3350 [Miralax] 17 g PO DAILY PRN 07/12/19 12/23/19 12/22/19 History escitalopram oxalate [Lexapro] 10 mg PO DAILY 09/12/19 12/23/19 12/22/19 08:00 History sennosides-docusate sodium 2 tab-cap PO DAILY 09/12/19 12/23/19 12/22/19 History [Senexon-S] ondansetron HCl 8 mg PO Q8H PRN 12/23/19 12/23/19 12/22/19 History Allergies Allergy/AdvReac Type Severity Reaction Status Date / Time Penicillins Allergy ALGY-Anaphy Verified 10/16/19 18:05 laxis Current Medications Current Medications Generic Name Dose Route Start Last Admin Trade Name Freq PRN Reason Stop Dose Admin Hydromorphone HCl 2 mg 12/23/19 05:13 12/23/19 11:14 Dilaudid Inj IVP 2 mg Q4H PRN Administration Abdominal pain Dextrose/Sodium Chloride 1,000 mls @ 75 mls/hr 12/23/19 05:13 12/23/19 05:43 Dextrose 5%-Sod Chloride 0.45% IV 75 mls/hr .[id number] SUSAN Administration Ondansetron HCl 4 mg 12/23/19 05:13 12/23/19 11:09 Zofran IVP 4 mg Q6H PRN Administration NAUSEA AND VOMITING PFSH Acute PFSH: Medical History (Updated 12/23/19 @ 15:28 by Georges Tim MD) 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 Maloney [place] Surgical History (Updated 12/23/19 @ 15:25 by Georges Tim MD) H/O colectomy History of appendectomy History of bilateral tubal ligation History of bladder surgery S/P ureteral stent placement Placed in August 2019 and removed in September 2019 secondary to severe intolerable discomfort. Sounds like metallic stents. Family History Other CAD (coronary artery disease) Denies family history of Diabetes Hyperlipidemia Cancer Hypertension Social History Smoking and tobacco status: former smoker Alcohol intake: current Alcohol intake frequency: holidays/special occasions only Substance/Drug Use: never Household members: family Housing: House Vitals/I&O/Wt Last Vital Signs Temp 97.2 F L 12/23/19 11:35 Pulse 72 12/23/19 11:35 Resp 18 12/23/19 11:35 BP 153/91 12/23/19 11:35 Pulse Ox 96 12/23/19 11:35 12/23/19 12/23/19 12/23/19 06:59 14:59 22:59 Intake Total 1500 / 1500 Output Total 600 / 600 Balance 1500 / 1500 -600 / -600 Weight last 48 hrs Weight 130 lb Physical Exam Const: COMMON NORMALS: no acute distress and alert GENERAL APPEARANCE: well kempt and well developed ORIENTATION/CONSCIOUSNESS: not confused HENMT: COMMON NORMALS: normocephalic and atraumatic HEAD & SCALP: normocephalic and atraumatic Eye: COMMON NORMALS: conjunctivae normal and no scleral icterus CONJUNCTIVA: Yes conjunctivae normal Neck/C-Spine: COMMON NORMALS: full ROM GENERAL: Yes normal visual inspection Resp: COMMON NORMALS: normal respiratory effort EFFORT & INSPECTION: No labored and No Actively coughing Cardio: COMMON NORMALS: regular rate and regular rhythm RATE: regular rate RHYTHM: regular rhythm GI: COMMON NORMALS: Soft to palpation and non-tender PALPATION: Yes Soft to palpation : COMMON NORMALS: Yes no CVA tenderness BLADDER/KIDNEY EXAM: Yes no CVA tenderness Back/Pelvis: COMMON NORMALS: no CVA tenderness GENERAL BACK: No swelling and No tenderness Extremity: COMMON NORMALS: no clubbing, cyanosis or edema Neuro: COMMON NORMALS: no focal motor deficits SENSORIUM/ORIENTATION: Yes alert Psych: COMMON NORMALS: mental status grossly normal, Normal thought process present and cooperative APPEARANCE: Yes grossly normal and Yes well kempt ATTITUDE: Yes calm and Yes engaged THOUGHT PROCESS: Normal thought process present Skin: COMMON NORMALS: no rashes or lesions noted and no jaundice GENERAL SKIN EXAM: no rashes or lesions noted A&P Assessment and plan (1) Hydronephrosis: Appears to be related to distal or mid ureteral obstruction of unclear etiology but differential diagnosis would include malignant extrinsic compression versus fibrosis related to prior treatment including radiation therapy. Previously stented left and right. On the right side the stent followed the course of the ureter to the upper pole moiety and the more dilated lower pole moiety was not stented. Currently her renal function is well-preserved. She has no symptoms referable to acute obstructive process and in fact during the time of development of her hydronephrosis from May to June 2019 she had no symptoms. Had a terrible experience with bilateral ureteral stenting with probable metallic stents and is absolutely opposed to having stents placed unless there is a overwhelming reason to do so which would include deterioration of renal function, infectious obstructive process, or potentially at time of repair of ureters if necessary. I do not think she has much to gain from stent placement at this point. Alternatives of bilateral percutaneous nephrostomy tubes (2 on the right) have been discussed and she will consider as an alternative to stenting if the above conditions warranting drainage occur. Status: Acute Qualifiers: Hydronephrosis type: other Qualified Code(s): N13.39 - Other hydronephrosis (2) Duplicated ureter, right: Complicated by both upper and lower pole moieties being involved with obstructive process as described under hydronephrosis tidal Status: Acute (3) Rectal cancer: Status: Acute Coding Level of Care Code Acute Synoptic Meteorologist for [facility] Fwd Exam Comprehensive Diagnoses Hydronephrosis N13.39 Hydronephrosis type: other Duplicated ureter, right Q62.5 Rectal cancer C20 Time Spent (min) 90 Comment Includes radiographic, chart review as well as patient evaluation directly.
[2019-12-23 18:42] LABS: SARS Covid-2 Antigen Negative (Negative)
[2019-12-24] VITALS (13 sets, daily range): BP systolic 136–152; BP diastolic 75–89; PULSE 71–80; RESP 14–20; TEMP 36.7–37.2; O2SAT 94–98
[2019-12-24] MEDS: HYDROmorphone 1 mg/mL INJ 1 mL 2 MG IVP ×4 (04:58→19:51)
[2019-12-24 06:08] LABS: Basophils % 0.4 %; Eosinophils # 0.1 10^3/uL (0.0-0.8); Eosinophils % 2.4 %; Hematocrit 40.4 % (37.0-47.0); Hemoglobin 13.1 g/dL (11.5-15.3); Lymphocytes % 19.8 %; Mean Corpuscular HGB Conc 32.4 g/dL (30.0-36.0); Mean Corpuscular Hemoglobin 32.4 pg (28.0-34.0); Mean Platelet Volume 9.9 fL (7.4-10.4); Monocytes # 0.6 10^3/uL (0.2-0.9); Monocytes % 11.5 %; Neutrophils # 3.21 10^3/uL (1.8-7.7); Neutrophils % 65.1 %; Nucleated Red Blood Cells % 0 %; Platelet Count 154 10^3/cmm (130-400); Red Blood Count 4.04 10^6/uL (4.1-5.3); Red Cell Distribution Width 15.6 % (12.1-15.1); White Blood Count 4.9 10^3/uL (4.0-10.0)
[2019-12-24 06:32] LABS: Anion Gap 11.9 (5-19); Blood Urea Nitrogen 6 mg/dL (6-20); Calcium 8.2 mg/dL (8.5-10.5); Carbon Dioxide 28 mmol/L (22-29); Chloride 98 mmol/L (98-107); Glomerular Filtration Rate 85.6 mL/min (90-130); Glucose 139 mg/dL (65-115); Osmolality Calculated 276 mOsm/kg (285-295); Potassium 3.9 mmol/L (3.5-5.1); Sodium 134 mmol/L (136-145)
[2019-12-24] MEDS: ondansetron 2 mg/ML SDV 2 mL 4 MG IVP ×2 (07:29→17:50)
[2019-12-24] MEDS: dextrose 5%-sod chloride 0.45% 1,000 ML 75 ML IV (08:38)
--- NOTE | 2019-12-24 10:34 | PC.CHAP ---
Pastoral Care Encounter/Spiritual Assessment Type of Contact [] Declined telephoner visit [] Patient/Family/Request visit [] Outpatient visit [x] Follow-up visit [] Physician referral [] Code/Alert [] Routine visit [] Staff referral [] Actively dying [] Patient sleeping [] Family support [] [] Out of room [] Palliative care [] [] Receiving care in room [] Pre-surgical visit [] Trauma [] Long length of stay [] ICU visit [x] Other: unresponsive Relational/Emotional Strength [] Patient feels connected with others/family/visitors/staff [] Distress [] Loneliness/isolation [] Abandonment Spirituality of Patient [] Person of Missy [] Attends Synagogue of their Missy [] Believes in Prayer [] Reads Bible or Quaker materials [] There are Spiritual issues to be addressed Building Construction Engineer Interventions [] Prayer [] Active listening [] Non-anxious presence [] Spiritual/emotional support [] Crisis/trauma care [] Spiritual counseling [] Bereavement support [] Provided bereavement packet [] Provided Bible/devotional materials [] Provided toy/stuffed animal, coloring book to patient or family member [] Provided Communion [] Anointing/[place] [] Salvation [] Completed spiritual assessment [] Other: Impact on Illness or Injury [] Angry [] Fearful [] Anxious [] Often cries [] Exhaustion [] Unable to work [] Unable to attend taoist [] Unable to walk/stand [] Unable to read [] Unable to drive [] Unable to eat/drink [] Unable to sleep [] Unable to be with family [] Patient intubated [] Other: Summary unresponsive Time spent with patient 5 mins
--- NOTE | 2019-12-24 12:25 | PM.PN ---
Subjective Subjective: Interval history: Urology follow-up No significant change in the realm of urology since yesterday. Her NG tube is been plugged back in with improvement in her increasing abdominal swelling and pain. Denies any renal colicky symptoms. No change in voiding. Creatinine today is 0.7. Reviewed again our discussion yesterday and options. At this point she is comfortable with waiting until more definitive approach to the colon cancer is addressed and potentially at that time consider stenting perks or ureter reconstruction bilaterally. I reviewed with her conditions which would necessitate earlier intervention including obstructive pyelonephritis or progressive decline in renal function. Overall in the short-term her risk is considered very low regarding kidney function issues. Please call if you have any further concerns or questions. Vitals/I&O/Wt Last Vital Signs Temp 98.1 F 12/24/19 07:55 Pulse 73 12/24/19 07:55 Resp 16 12/24/19 11:16 BP 139/84 12/24/19 07:55 Pulse Ox 98 12/24/19 07:55 12/23/19 12/24/19 12/24/19 22:59 06:59 14:59 Intake Total 1443.75 / 1443.75 250 / 1693.75 1000 / 1000 Output Total 550 / 1150 300 / 1450 1200 / 1200 Balance 893.75 / 293.75 -50 / 243.75 -200 / -200 Weight last 48 hrs Weight 130 lb Physical Exam Const: COMMON NORMALS: no acute distress, alert and well nourished GENERAL APPEARANCE: well kempt and well developed ORIENTATION/CONSCIOUSNESS: not confused Resp: COMMON NORMALS: normal respiratory effort EFFORT & INSPECTION: No labored and No Actively coughing Neuro: COMMON NORMALS: no focal motor deficits SENSORIUM/ORIENTATION: Yes alert Psych: COMMON NORMALS: mental status grossly normal APPEARANCE: Yes grossly normal and Yes well kempt ATTITUDE: Yes calm and Yes engaged Data : 12/24/19 05:21 12/24/19 05:21 A&P Assessment and plan (1) Hydronephrosis: Bilateral and consistent with extrinsic compression, possibly associated with radiation ischemia or malignant constriction. Status: Acute Qualifiers: Hydronephrosis type: other Qualified Code(s): N13.39 - Other hydronephrosis (2) Duplicated ureter, right: Status: Acute (3) S/P ureteral stent placement: Short-term due to severe symptomatic intolerance. Currently without Status: Acute Attestations Medical Necessity Statement*: See attending Coding Level of Care Code Acute [employer] Engineer Sergeant for [facility] Diagnoses Hydronephrosis N13.39 Hydronephrosis type: other Duplicated ureter, right Q62.5 S/P ureteral stent placement Z96.0
--- NOTE | 2019-12-24 15:55 | P.PN_ITS ---
Subjective Subjective: Interval history: Patient reports that she has been more nauseous ever since NG tube was clamped. She feels her abdominal pain and swelling increased. Her ostomy output stopped. She denies shortness of breath or chest pain. Vitals/I&O/Wt Last Vital Signs Temp 98.9 F 12/24/19 15:32 Pulse 77 12/24/19 15:32 Resp 18 12/24/19 15:32 BP 145/85 12/24/19 15:32 Pulse Ox 97 12/24/19 15:32 12/24/19 12/24/19 12/24/19 06:59 14:59 22:59 Intake Total 250 / 1693.75 1000 / 1000 Output Total 300 / 1450 1200 / 1200 Balance -50 / 243.75 -200 / -200 Weight last 48 hrs Weight 58.967 kg Physical Exam Const: COMMON NORMALS: no acute distress and patient oriented x3 Resp: COMMON NORMALS: normal respiratory effort and clear to auscultation bilaterally AUSCULTATION: clear to auscultation bilaterally Cardio: COMMON NORMALS: regular rate, regular rhythm and S2 normal heart sound present RATE: regular rate RHYTHM: regular rhythm HEART SOUNDS: S2 normal heart sound present OTHER: No lower extremity edema GI: COMMON NORMALS: Normal to inspection, nondistended, normoactive bowel sounds present and Soft to palpation PALPATION: Yes Soft to palpation and Yes Tenderness to palpation present (GI) Details: RLQ OTHER: Ostomy bag is empty. Neuro: COMMON NORMALS: patient oriented x3 and no focal motor deficits Data : 12/24/19 05:21 12/24/19 05:21 A&P Assessment and plan (1) Small bowel obstruction: Ileus versus highly possible adhesion related small bowel obstruction. Status: Acute (2) Hydronephrosis: Does not appear to have any underlying infection. Status: Acute Qualifiers: Hydronephrosis type: other Qualified Code(s): N13.39 - Other hydronephrosis (3) Rectal cancer: Status: Acute (4) Abdominal pain: Status: Acute Additional A&P Information Recurrent small bowel obstruction with underlying rectal cancer Status post radiotherapy(40 cycles), chemotherapy, no extensive metastases reported as per the patient NG to suction not draining any active fluid NG tube has been advanced on arrival (it was found to be in the esophagus) Repeating imaging to confirm the placement Currently not in any active distress, analgesia with Dilaudid, maintenance fluid with D5 half-normal saline Colostomy bag draining liquid brown content No active signs of peritonitis No acute indication for surgical consult Unilateral hydronephrosis Patient suffered from ureteral fibrosis after radiation therapy, has had ureteral stent which were removed, patient is denying dysuria, urinary retention, flank pain, creatinine is normal, monitor urine output, patient is able to void, would avoid putting Mtz catheter for now, does not have any history of nephrolithiasis Gout: Medications on hold for now PLAN: We will continue with low intermittent wall suction and keep patient n.p.o. for now. Will try mag citrate. Discussed with Dr. Carr who will see patient in consultation. Appreciate Dr. Tim's help. Attestations Medical Necessity Statement*: Patient with signs and symptoms of small bowel obstruction requires close inpatient monitoring and treatment. Time Spent in Patient Care: 16 - 35 minutes Coding Level of Care Code Acute Direct Customer Service [facility] Diagn[facility] Small bowel obstruction K56.609 Hydronephrosis N13.39 Hydronephrosis type: other Rectal cancer C20 Abdominal pain R10.9
--- NOTE | 2019-12-24 16:51 | P.CONIM_ITS ---
Providers/Reason For Consult Consulting Physican/Specialty*: General Surgery Rm Carr MD Reason for Consult*: Small bowel obstruction. Attending Physician: Jeromy Arias MD Primary Care Provider: Ciera Jeff MD History of Present Illness History of Present Illness Kathryn Brice is a 59 year old female currently being treated for rectal cancer after the rectal cancer perforated earlier this year, at which time it was diagnosed. The patient underwent colostomy placement in [place] and is status post radiation treatment and is still undergoing chemotherapy treatments. She started having some abdominal pain and cramping a week ago today. It sounds like her symptoms waxed and waned somewhat over the course of the past 7 days, but she got to the point yesterday where her colostomy was not functioning and she continued to have pain as well as nausea and vomiting. She had taken some magnesium citrate several days previously and says that it all moved through her system but simply emptied and her colostomy bag is liquid. There was no solid stool. The patient has had 4 episodes like this ever since she was originally explored back in May in [place]. All of the episodes have been treated successfully conservatively, but she obviously has recurring issues. Review of Systems General: Reports: 10 or more systems reviewed and unremarkable except in HPI and below Const: Reports: body aches; Denies: fever(s) GI: Reports: abdominal pain, nausea and vomiting Meds/Allergies Home Medications and Allergies Home Medications Medication Instructions Recorded Confirmed Last Taken Type oxycodone 10 mg PO Q6H PRN 07/12/19 12/23/19 10/15/19 History polyethylene glycol 3350 [Miralax] 17 g PO DAILY PRN 07/12/19 12/23/19 12/22/19 History escitalopram oxalate [Lexapro] 10 mg PO DAILY 09/12/19 12/23/19 12/22/19 08:00 History sennosides-docusate sodium 2 tab-cap PO DAILY 09/12/19 12/23/19 12/22/19 History [Senexon-S] ondansetron HCl 8 mg PO Q8H PRN 12/23/19 12/23/19 12/22/19 History Allergies Allergy/AdvReac Type Severity Reaction Status Date / Time Penicillins Allergy ALGY-Anaphy Verified 06/17/20 18:05 laxis Current Medications Current Medications Generic Name Dose Route Start Last Admin Trade Name Freq PRN Reason Stop Dose Admin Hydromorphone HCl 2 mg 12/23/19 05:13 12/24/19 15:19 Dilaudid Inj IVP 2 mg Q4H PRN Administration Abdominal pain Ondansetron HCl 4 mg 12/23/19 05:13 12/24/19 07:29 Zofran IVP 4 mg Q6H PRN Administration NAUSEA AND VOMITING PFSH Acute PFSH: Medical History (Updated 12/23/19 @ 15:28 by Georges Tim MD) 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 Maloney [place] Surgical History (Updated 12/24/19 @ 16:58 by Rm Carr MD) H/O colectomy Diverting colostomy placement History of appendectomy History of bilateral tubal ligation History of bladder surgery S/P ureteral stent placement Placed in August 2019 and removed in September 2019 secondary to severe intolerable discomfort. Sounds like metallic stents. Family History Other CAD (coronary artery disease) Denies family history of Diabetes Hyperlipidemia Cancer Hypertension Social History Smoking and tobacco status: former smoker Alcohol intake: current Alcohol intake frequency: holidays/special occasions only Substance/Drug Use: never Household members: family Housing: House Vitals/I&O/Wt Last Vital Signs Temp 98.9 F 12/24/19 15:32 Pulse 77 12/24/19 15:32 Resp 18 12/24/19 15:32 BP 145/85 12/24/19 15:32 Pulse Ox 97 12/24/19 15:32 12/24/19 12/24/19 12/24/19 06:59 14:59 22:59 Intake Total 250 / 1693.75 1000 / 1000 Output Total 300 / 1450 1200 / 1200 Balance -50 / 243.75 -200 / -200 Weight last 48 hrs Weight 130 lb Physical Exam Narrative: EXAM NARRATIVE: The patient was encountered in her hospital room. There is a nasogastric tube in place which is draining light bilious colored fluid. The patient does not appear to be in any distress. The pupils are equal. No carotid bruits are heard. The lungs are clear anteriorly. The heart is regular rate. The abdomen is nondistended. There is a healthy colostomy in the left lower quadrant. She has scattered tenderness about the abdomen but no obvious masses. The extremities reveal no edema. The patient can move all limbs to command. Data Imaging^: CT Abd/Pel: Radiologist's impression: CT abdomen/pelvis 12/23/2019 iMPRESSION: 1. Distended small bowel loops with air-fluid levels, and transition point in the pelvis and decompressed more distal small bowel. Evidence of small bowel obstruction. 2. Small amount of free fluid. 3. Duplex right kidney. Moderate right hydronephrosis and hydroureter of the upper greater than lower moiety with a large right kidney extrarenal pelvis. Transition to normal caliber where the ureters join in the mid right abdomen. Recommend follow-up with urology, patient previously had ureteral catheters. A&P Assessment and plan (1) Small bowel obstruction: CT reviewed. It appears that the patient has a small bowel obstruction in the mid small bowel in the upper portion of the pelvis centrally. The patient has been through surgery as well as radiation treatment. This is most likely a combination of those factors, but her known rectal malignancy is still obviously in play. If surgery becomes necessary, the patient would like to return to [place] to have this done. I made her aware that I think we just need to draw a line in the sand with respect to transfer/surgery timing if she does not get better with the current conservative measures. I will be happy to continue following the patient while she is hospitalized. Status: Acute (2) Rectal cancer: Still undergoing chemotherapy. Status: Acute Consult Attestations Medical Necessity Statement: See admitting service's notation. Coding Level of Care Code Acute Pipe Inspector for Michael Lilly Diagnoses Small bowel obstruction K56.609 Rectal cancer C20
[2019-12-24] MEDS: enoxaparin 40 mg/0.4 mL Syringe SUBCUT (17:53)
[2019-12-24] MEDS: lactated ringers 1,000 ML 50 ML IV (17:55)
[2019-12-25] MEDS: ondansetron 2 mg/ML SDV 2 mL 4 MG IVP ×2 (01:29→11:46)
--- NOTE | 2019-12-25 02:03 | XRR_ITS ---
PROCEDURE INFORMATION: Exam: XR Abdomen, 1 View Exam date and time: 12/25/2019 3:06 AM Age: 59 years old Clinical indication: Device placement; Gi device; Nasogastric tube; Additional info: Possible ng tube migration to throat TECHNIQUE: Imaging protocol: XR of the abdomen. Views: Frontal supine view of the abdomen. 1 View. COMPARISON: CT abdomen pelvis w con* [id number] 12/23/2019 1:44 AM FINDINGS: Tubes, catheters and devices: Nasogastric tube coiled within the fundus of the stomach Gastrointestinal tract: Thickened loops of small bowel in the pelvis and left lower and mid abdomen. Bones/joints: Unremarkable. XR/XR KUB portable [id number] IMPRESSION: Thickened loops of small bowel in the pelvis and left lower and mid abdomen. Correlate. Mildly prominent.
[2019-12-25 03:06] VITALS: RESP 14
[2019-12-25] MEDS: HYDROmorphone 1 mg/mL INJ 1 mL 2 MG IVP ×2 (03:06→11:46)
--- NOTE | 2019-12-25 03:40 | PC.NURSE ---
Pateint very nauseated and threw large amount of green bile and felt that the NG Tube was up in her throat. NG Tube stopped producing much output and patient was much more nauseated. KUB xray was order to verify placement.
[2019-12-25 04:00] VITALS: BP 122/75; PULSE 72; RESP 14
--- NOTE | 2019-12-25 07:03 | PM.PN ---
Subjective Subjective: Interval history: The patient had a bad night last night. She ended up getting nauseated, distended and vomited several times. Nursing then cleared out her NG tube and they immediately got 500 mL back upon returning it to the suction. A KUB at roughly 3 AM shows the NG tube in good position. She is feeling better this morning, but still has not had any flatus through her stoma. Vitals/I&O/Wt Last Vital Signs Temp 98.5 F 12/24/19 23:07 Pulse 72 12/25/19 04:00 Resp 14 12/25/19 04:00 BP 122/75 12/25/19 04:00 Pulse Ox 94 12/24/19 23:07 12/24/19 12/25/19 12/25/19 22:59 06:59 14:59 Intake Total 120 / 1120 Output Total 200 / 3300 1900 / 3300 Balance -200 / -2180 -1780 / -2180 Physical Exam Narrative: EXAM NARRATIVE: Bowel sounds seem fairly normal. The colostomy has no air or fluid in the bag. The abdomen is soft and nondistended this morning. Data : 12/24/19 05:21 12/24/19 05:21 A&P Assessment and plan (1) Small bowel obstruction: The patient is feeling better after her nasogastric tube started working again. The KUB early this morning shows some remaining dilated loops of small bowel, but there is some air in the upper abdomen that may be in the transverse colon. Continue current management for now. Ambulate. Status: Acute (2) Rectal cancer: Still undergoing chemotherapy. Status: Acute Attestations Medical Necessity Statement*: See admitting service's notation. Coding Level of Care Code Acute Beauty Counselor for Michael Lilly Diagnoses Small bowel obstruction K56.609 Rectal cancer C20
[2019-12-25 07:17] VITALS: BP 118/77; PULSE 67; RESP 16; TEMP 36.7; O2SAT 92
[2019-12-25] MEDS: D5-NS 0.45% + KCL 20 mEq 20 MEQ/1,000 ML BAG 100 MEQ IV (07:43)
[2019-12-25 10:52] VITALS: BP 132/77; PULSE 72; RESP 16; TEMP 36.9; O2SAT 97
[2019-12-25 11:46] VITALS: RESP 16
--- NOTE | 2019-12-25 14:03 | P.TS_ITS ---
Transfer Summary Providers Date of Admission: 12/23/19 05:13 Date of Discharge: 12/25/19 Attending Provider at Admission: Yulia Henderson MD Attending Provider at Transfer: Jeromy Arias MD Primary Care Provider: Ciera Jeff MD Anticipated Date of Transfer: Anticipated date of transfer: 12/25/19 Receiving Facility & Provider: Receiving Provider: [] Receiving facility: [] Diagnoses at Discharge Discharge Diagnosis (1) Small bowel obstruction: Status: Acute (2) Rectal cancer: Status: Acute Problem details: Sees Dr. Maloney [place] Reason for Visit Reason for Visit: abd pain Hospital Course Discharge Summary: Patient presented with signs and symptoms of small bowel obstruction. She had nausea and vomiting and decreased ostomy output. Her underlying medical history is complicated for rectal cancer for which she is seeing oncologist and surgeon at [facility]. There was seen by Dr. Tim for concern for right ureteral obstruction causing hydronephrosis. This appears to be chronic. She may need to have flexible stent placement down the road if not improving. Please refer to detailed note done by Dr. Tim. Patient was seen by Dr. Carr and conservative management was recommended. Patient apparently had very difficult time last night. She had nausea and vomiting despite draining NG tube. She started producing some liquid output in her ostomy. She discussed case with her surgeon Dr. Burch at [facility] who recommended transfer to also be evaluated by oncology service for upcoming treatments. I have called and discussed with Dr. Burch and patient will be transferred to be further treated under her care. This morning patient denied shortness of breath or chest pain. Her abdominal pain this morning improved compared to last night. She was not nauseous during my evaluation. Physical Exam Const: COMMON NORMALS: no acute distress and patient oriented x3 Resp: COMMON NORMALS: normal respiratory effort and clear to auscultation bilaterally AUSCULTATION: clear to auscultation bilaterally Cardio: COMMON NORMALS: regular rate, regular rhythm and S2 normal heart sound present RATE: regular rate RHYTHM: regular rhythm HEART SOUNDS: S2 normal heart sound present OTHER: No lower extremity edema GI: COMMON NORMALS: Normal to inspection, nondistended, normoactive bowel sounds present and Soft to palpation PALPATION: Yes Soft to palpation and Yes Tenderness to palpation present (GI) OTHER: Ostomy bag with liquid output. Neuro: COMMON NORMALS: patient oriented x3 and no focal motor deficits TS Data Data Completed and Pending: Completed Studies During Hospitalization Category Date Time Status CT abdomen pelvis w con* [id number] Urge nt Cat Scan 12/23/19 01:02 Completed XR KUB portable 7 [id number] Stat Exams 12/25/19 02:03 Completed XR chest 1V [id number] Stat Exams 12/23/19 02:24 Completed XR chest 1V blayne ble [id number] Routine Exams 12/23/19 Completed XR chest 1V blayne ble [id number] Routine Exams 12/23/19 Completed XR chest 1V blayne ble [id number] Routine Exams 12/23/19 Completed Vitals: Last Vital Signs Temp 98.5 F 12/25/19 10:52 Pulse 72 12/25/19 10:52 Resp 16 12/25/19 11:46 BP 132/77 12/25/19 10:52 Pulse Ox 97 12/25/19 10:52 TS Medications Medications Home Medications oxycodone 10 mg PO Q6H PRN 07/12/19 [History Confirmed 12/23/19] polyethylene glycol 3350 [Miralax] 17 g PO DAILY PRN 07/12/19 [History Confirmed 12/23/19] escitalopram oxalate [Lexapro] 10 mg PO DAILY 09/12/19 [History Confirmed 12/23/19] sennosides-docusate sodium [Senexon-S] 2 tab-cap PO DAILY 09/12/19 [History Confirmed 12/23/19] ondansetron HCl 8 mg PO Q8H PRN 12/23/19 [History Confirmed 12/23/19] Active Medications Enoxaparin Sodium (Lovenox) 40 mg SUBCUT Q24H [facility] Last Admin: 12/24/19 17:53 Dose: 40 mg Documented by: Hydromorphone HCl (Dilaudid Inj) 2 mg IVP Q4H PRN PRN Reason: Abdominal pain Last Admin: 12/25/19 11:46 Dose: 2 mg Documented by: Potassium Chloride/Dextrose/Sod Cl (D5-Ns 0.45% + Kcl 20 Meq) 20 meq in 1,000 mls @ 100 mls/hr IV .Q10H SUSAN Last Admin: 12/25/19 07:43 Dose: 100 mls/hr Documented by: Ondansetron HCl (Zofran) 4 mg IVP Q6H PRN PRN Reason: NAUSEA AND VOMITING Last Admin: 12/25/19 11:46 Dose: 4 mg Documented by: Phenol (Phenaseptic) 5 spray MUCOUS MEM Q2H PRN PRN Reason: SORE THROAT Discharge Plan Discharge Patient Disposition: Xfer Short-Term Hosp Condition: Stable Prescriptions: No Action polyethylene glycol 3350 [Miralax] 17 gram/dose Powder 17 g PO DAILY PRN (Reason: Constipation) RF: 0 oxycodone 5 mg Tablet, Oral Only 10 mg PO Q6H PRN (Reason: Pain) RF: 0 sennosides-docusate sodium [Senexon-S] 8.6-50 mg Tablet 2 tab-cap PO DAILY RF: 0 escitalopram oxalate [Lexapro] 10 mg Tablet 10 mg PO DAILY RF: 0 ondansetron HCl 8 mg Tablet 8 mg PO Q8H PRN (Reason: Nausea) RF: 0 Discharge Orders: Discharge Order (Routine); Ordered 12/25/19 Ordered By: Jeromy Arias Referrals: Ciera Jeff MD [Primary Care Provider] - Transfer Attestations Time Spent in Transfer Care*: greater than 30 min Status at Transfer: Cognitive status at transfer: cognitively intact , Behavioral status at transfer: cooperative , Quality Metrics Clinical Quality Measures: During this hospital stay, did patient experience: None Coding Level of Care Code Acute Chief Of Safety And Protection for Joeg Fwd Exam Detailed Diagnoses Small bowel obstruction K56.609 Rectal cancer C20
[2019-12-25 14:58] VITALS: RESP 16
== END 2019-12-25 14:58 | disposition short-term general hospital (02) | DRG 389 ==
LOC: ER 02:35 → MEDSURG 07:20
PROVIDERS: Admitting Provider Internal Medicine; Emergency Provider Emergency Medicine; PCP Family Medicine; Visit Provider Internal Medicine
DX: K56.609 Unspecified intestinal obstruction, unspecified as to partial versus complete obstruction (principal); C20 Malignant neoplasm of rectum; N13.30 Unspecified hydronephrosis; Z93.3 Colostomy status; Z92.3 Personal history of irradiation; Z79.899 Other long term (current) drug therapy; I34.1 Nonrheumatic mitral (valve) prolapse; Z87.891 Personal history of nicotine dependence; M10.9 Gout, unspecified; Q62.5 Duplication of ureter; Z79.891 Long term (current) use of opiate analgesic
CPT/HCPCS: 12345; 36415; 71045; 74018; 74177; 80048; 80053; 81003; 83605; 83690; 85025; 86140; 87426; 96372; 96375; 99283; J1170; J1650; J2405; J2765; J3010; J7030; J7040; J7799; Q9967

== ENCOUNTER 2019-12-29 11:15 | Emergency (ER) | payer OTHER, SELFPAY ==
[2019-12-29 12:15] VITALS: BP 148/89; PULSE 73; RESP 16; TEMP 36.9; O2SAT 98; BMI 19.2
--- NOTE | 2019-12-29 12:23 | ED_ITS ---
HPI - Nausea/Vomiting/Diarrhea General: Chief complaint: Nausea/Vomiting/Diarrhea Stated complaint: ABD PAIN N/V NO OUTPUT Time Seen by Provider: 12/29/19 12:17 Source: patient Mode of arrival: ambulatory Limitations: no limitations History of Present Illness: HPI Narrative: Ms. Brice is a nice 59-year-old female who comes in complaining of nausea and vomiting and no ostomy output overnight. Patient states she was just discharged from [facility] in [place] for a bowel obstruction. Patient has history of rectal cancer and has a colostomy. When she left [facility] that she had liquid stool output but she was tolerating p.o. intake well without any nausea or vomiting. She states she did well and emptied out her ostomy bag last night but overnight there has been no output from the ostomy bag. She is also had abdominal pain and nausea and vomiting this morning. She denies any fevers or chills, she is not complain of any urinary symptoms. Patient also relates a injury to her head where she fell over and was dazed. She is uncertain if the symptoms are related. Patient is currently getting chemo with her last episode being 2 weeks ago. She is unaware of anything that makes her symptoms better or worse and she is not tried anything for this at home prior to coming here to the hospital. Associated nausea: Yes Associated symtoms: Reports headache(s) and nausea; Denies change in vision, chest pain, diaphoresis, dizziness, dysuria, fatigue, malaise, palpitations or syncope Review of Systems Const: Denies: fever(s), chills, body aches, fatigue, malaise or diaphoresis Eyes: Denies: change in vision, blurry vision, photophobia, eye discomfort, eye discharge or eye redness ENMT: Denies: throat pain, odynophagia, hoarseness, swelling of lips/tongue, ear or mastoid pain, ear discharge, change in hearing or nasal discharge Card: Denies: chest pain, palpitations, irregular heart rhythm, edema, lightheadedness, syncope, pre-syncope, dyspnea on exertion or orthopnea Resp: Denies: dyspnea, productive cough, non-productive cough, wheezing, hemoptysis or chest congestion GI: Reports: abdominal pain, nausea and vomiting; Denies: hematemesis, coffee ground emesis, heartburn, diarrhea, constipation, GI cramping, hematochezia or melena : Denies: flank pain, dysuria, urinary frequency, urinary urgency or hematuria Musc: Denies: neck pain, back pain, extremity pain, extremity swelling, joint pain, joint swelling, joint redness, joint warmth or joint stiffness Skin/Breast: Denies: rash, pruritus, erythema or skin tenderness Neuro: Reports: headache(s); Denies: numbness in extremities, weakness in extremities, sensory changes, lack of coordination, difficulty walking, dizziness, vertigo, confusion, Slurred speech present or seizure-like activity Coy/Lymph: Denies: easy bruising, easy bleeding, petechiae, purpura or enlarged lymph nodes All/Imm: Denies: urticaria, throat swelling, tongue swelling, facial swelling or acute wheezing PFSH ED PFSH: Medical History 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 Maloney [place] Surgical History H/O colectomy Diverting colostomy placement History of appendectomy History of bilateral tubal ligation History of bladder surgery S/P ureteral stent placement Placed in August 2019 and removed in September 2019 secondary to severe intolerable discomfort. Sounds like metallic stents. Family History Other CAD (coronary artery disease) Denies family history of Diabetes Hyperlipidemia Cancer Hypertension Social History Smoking and tobacco status: former smoker Alcohol intake: current Alcohol intake frequency: holidays/special occasions only Household members: family Housing: House Physical Exam Const: COMMON NORMALS: no acute distress, patient oriented x3, no limitations, healthy appearing and well nourished GENERAL APPEARANCE: cooperative, well kempt and well developed HENMT: COMMON NORMALS: normocephalic, atraumatic, external ears normal, EAC's normal and Normal external nose present HEAD & SCALP: normal to inspection, normocephalic and atraumatic FACE & SINUS: normal facial exam and face symmetric NOSE: Normal external nose present and Normal nares present EXTERNAL EAR: Yes external ears normal EXTERNAL AUDITORY CANAL: EAC's normal MOUTH: Normal oral and palatal mucosa present, lip normal and tongue normal Eye: COMMON NORMALS: Equal, round and reactive pupils present and conjunctivae normal GENERAL EYE: appearance normal, both eyes and all related structures ALIGNMENT: Yes alignment normal PERIORBITAL: periorbital findings normal EYELID: eyelids normal CONJUNCTIVA: Yes conjunctivae normal SCLERA: sclerae normal PUPIL: Yes Equal, round and reactive pupils present Neck/C-Spine: COMMON NORMALS: full ROM, no lymphadenopathy, supple, no meninge al signs and no JVD GENERAL: Yes normal visual inspection and Yes trachea midline Chest: COMMONS NORMALS: normal inspection of the chest and normal palpation of entire chest wall Resp: COMMON NORMALS: normal respiratory effort, No retractions, No use of accessory muscles and clear to auscultation bilaterally EFFORT & INSPECTION: Yes able to speak in complete sentences and Yes symmetric chest movement AUSCULTATION: clear to auscultation bilaterally, no crackles, no rales, no rhonchi and no wheezes Cardio: COMMON NORMALS: no JVD, regular rate, regular rhythm, S1 normal heart sound present and S2 normal heart sound present RATE: regular rate RHYTHM: regular rhythm HEART SOUNDS: S1 normal heart sound present, S2 normal heart sound present, no click, no gallops, no murmurs, no rubs and abnormal split S2 GI: COMMON NORMALS: Soft to palpation and No hepatosplenomegaly present PALPATION: Yes Soft to palpation, Yes Tenderness to palpation present (GI) (Mild to moderate diffusely without rebound, guarding or rigidity.), No Guarding due to palpation present (GI), No Rigid due to palpation, Yes No hepatosplenomegaly present, No Hernia present, No Palpable mass present and No Pulsatile mass present : COMMON NORMALS: Yes no CVA tenderness BLADDER/KIDNEY EXAM: Yes no CVA tenderness EXTERNAL FEMALE EXAM: No Hernia present Back/Pelvis: COMMON NORMALS: no CVA tenderness, thoracic and lumbar spine normal to inspection, no thoracic nor lumbar tenderness and thoraco-lumbar ROM normal Extremity: COMMON NORMALS: normal to inspection, full ROM, capillary refill normal, no joint enlargement, no clubbing, cyanosis or edema and no calf tenderness Neuro: COMMON NORMALS: patient oriented x3, CN's II-XII intact bilaterally, moves all extremities, no focal motor deficits and no sensory deficits noted MENINGEAL SIGNS: Yes no meningeal signs SPEECH: speech normal Psych: COMMON NORMALS: mental status grossly normal, Normal thought process present, cooperative, normal affect, speech normal and activity/motor behavior normal APPEARANCE: Yes well kempt SPEECH: Yes normal speech THOUGHT PROCESS: Normal thought process present Skin: COMMON NORMALS: no rashes or lesions noted, turgor normal, no jaundice, no petechiae and no mottling GENERAL SKIN EXAM: no rashes or lesions noted and turgor normal Course ED course: 1410 -the patient was informed about her CT results. She states that Dr. Vicente Burch, her surgeon at [facility] states that her symptoms were caused by an adhesion. The patient is demanding to be sent back to [facility] for surgery if necessary. I did share with her the importance of the possibility of volvulus and this is time sensitive but she states even if this surgery needs to be done she would rather be flown on a helicopter back to [place] to be treated there that here. 1420 -I reviewed the case with Dr. Carr and have asked him to evaluate the patient. He reviewed the patient's CT scan himself and states he knows the patient well. He states based upon the CT scan it looks the exact same as it did 6 days ago when he had the patient transferred to [facility]. Marco tsafford does not believe there to be an acute volvulus. He believes this still may be treated nonsurgically and if the patient is wanting surgery done he recommends [facility] as the patient still has tumor resection surgery that will need to be accomplished. I have still currently awaiting a return phone call from Dr. Bruch at [facility]. Currently the patient is in no acute distress, she is not vomited she is just been here. Abdomen is soft and her pain is better although not completely gone. 1533 -Case reviewed with Dr. Barnett at [facility], he will accept the patient in transfer. He agrees with NG tube placement and states based upon my description of the CT it sounds like the same issues as before. He will evaluate the patient when she arrives here. We are currently working on placing her NG tube. Vital Signs: Vital signs: Vital Signs Temperature 98.4 F 12/29/19 12:15 Pulse Rate 73 12/29/19 12:15 Respiratory Rate 15 12/29/19 15:20 Blood Pressure 148/89 12/29/19 12:15 Pulse Oximetry 98 12/29/19 12:15 MDM - Nausea/Vomiting/Diarrhea Lab Data: Labs: Lab Results 12/29/19 12/29/19 12/29/19 Range/Units 12:34 12:34 12:34 WBC Cancelled Corrected WBC Cancelled RBC Cancelled Hgb Cancelled Hct Cancelled MCV Cancelled MCH Cancelled MCHC Cancelled RDW Cancelled Plt Count Cancelled MPV Cancelled Gran % Cancelled Neut % (Auto) Cancelled Lymph % (Auto) Cancelled White % (Auto) Cancelled Eos % (Auto) Cancelled Baso % (Auto) Cancelled Neut # (Auto) Cancelled Lymph # (Auto) Cancelled White # (Auto) Cancelled Eos # (Auto) Cancelled Baso # (Auto) Cancelled Absolute Gran (aut o) Cancelled Nucleated RBC % (a uto) Cancelled Nucleated RBCs # Cancelled Sodium Cancelled Potassium Cancelled Chloride Cancelled Carbon Dioxide Cancelled Anion Gap Cancelled BUN Cancelled Creatinine Cancelled GFR Calculation Cancelled Glucose Cancelled Calculated Osmolal ity Cancelled Lactic Acid Cancelled Calcium Cancelled Magnesium Cancelled Total Bilirubin Cancelled AST Cancelled ALT Cancelled Alkaline Phosphata se Cancelled Total Protein Cancelled Albumin Cancelled Globulin Cancelled Lipase Cancelled Urine Color (Yellow) Urine Appearance (CLEAR) Urine pH (5-7) Ur Specific Gravit y (1.005-1.030) Urine Protein (Negative) Urine Glucose (UA) (Normal) Urine Ketones (Negative) Urine Blood (Negative) Urine Nitrate (Negative) Urine Bilirubin (NEGATIVE) Prot Sulfosalicyli c Acd (Negative) Urine Urobilinogen (Negative) mg/dL Ur Leukocyte Crystal ase (Negative) 12/29/19 12/29/19 12/29/19 Range/Units 13:02 13:02 13:02 WBC 6.2 Corrected WBC RBC 3.60 L Hgb 12.1 Hct 36.1 L MCV 100.3 H MCH 33.6 MCHC 33.5 RDW 14.7 Plt Count 153 MPV 9.8 Gran % Neut % (Auto) 72.3 Lymph % (Auto) 17.5 White % (Auto) 8.2 Eos % (Auto) 1.0 Baso % (Auto) 0.5 Neut # (Auto) 4.51 Lymph # (Auto) 1.1 White # (Auto) 0.5 Eos # (Auto) 0.1 Baso # (Auto) 0.0 Absolute Gran (aut o) Nucleated RBC % (a uto) 0 Nucleated RBCs # 0.0 Sodium 140 Potassium 3.6 Chloride 102 Carbon Dioxide 30 H Anion Gap 11.6 BUN 8 Creatinine 0.8 GFR Calculation 73.4 L Glucose 111 Calculated Osmolal ity 287 Lactic Acid 1.2 Calcium 8.8 Magnesium 1.9 Total Bilirubin 0.4 AST 13 ALT 8 Alkaline Phosphata se 88 Total Protein 6.0 L Albumin 3.5 Globulin 2.5 Lipase 31 Urine Color (Yellow) Urine Appearance (CLEAR) Urine pH (5-7) Ur Specific Gravit y (1.005-1.030) Urine Protein (Negative) Urine Glucose (UA) (Normal) Urine Ketones (Negative) Urine Blood (Negative) Urine Nitrate (Negative) Urine Bilirubin (NEGATIVE) Prot Sulfosalicyli c Acd (Negative) Urine Urobilinogen (Negative) mg/dL Ur Leukocyte Crystal ase (Negative) 12/28/ Range/Units 13:46 WBC Corrected WBC RBC Hgb Hct MCV MCH MCHC RDW Plt Count MPV Gran % Neut % (Auto) Lymph % (Auto) White % (Auto) Eos % (Auto) Baso % (Auto) Neut # (Auto) Lymph # (Auto) White # (Auto) Eos # (Auto) Baso # (Auto) Absolute Gran (aut o) Nucleated RBC % (a uto) Nucleated RBCs # Sodium Potassium Chloride Carbon Dioxide Anion Gap BUN Creatinine GFR Calculation Glucose Calculated Osmolal ity Lactic Acid Calcium Magnesium Total Bilirubin AST ALT Alkaline Phosphata se Total Protein Albumin Globulin Lipase Urine Color Yellow (Yellow) Urine Appearance Clear (CLEAR) Urine pH 8 H (5-7) Ur Specific Gravit y 1.015 (1.005-1.030) Urine Protein Neg (Negative) Urine Glucose (UA) Norm (Normal) Urine Ketones Negative (Negative) Urine Blood Neg (Negative) Urine Nitrate Negative (Negative) Urine Bilirubin Neg (NEGATIVE) Prot Sulfosalicyli c Acd Negative (Negative) Urine Urobilinogen Norm (Negative) mg/dL Ur Leukocyte Crystal ase Negative (Negative) Imaging Data^: CT Head: Attestation: I personally reviewed and interpreted this imaging study as follows: Radiologist's impression: [address] [address] [address] Scan Report Signed Patient: Kathryn Brice Unit #: [id number] : 1960 Age/Sex: 59 / F ADM Date: 12/29/19 Loc: ER Room/Bed: Attending Dr: Ordering Provider/Ordering MD: Kacey Maxwell DO Date of Service: 12/29/19 Procedure(s): CT head wo con* [id number] Accession Number(s): [id number] Report Number: [id number] PROCEDURE INFORMATION: Exam: CT Head Without Contrast Exam date and time: 12/29/2019 1:02 PM Age: 59 years old Clinical indication: Injury or trauma; Initial encounter; Blunt trauma (contusions or hematomas); Without loss of consciousness; Patient HX: Fall from standing last night - denies loc; Additional info: Fall/head injury/confusion TECHNIQUE: Imaging protocol: Computed tomography of the head without contrast. Radiation optimization: All CT scans at this facility use at least one of these dose optimization techniques: automated exposure control; mA and/or kV adjustment per patient size (includes targeted exams where dose is matched to clinical indication); or iterative reconstruction. COMPARISON: No relevant prior studies available. RADIATION DOSE METRICS: Total DLP (mGy-cm): 744.96 FINDINGS: Brain: Mild cerebral atrophy and ischemic leukoencephalopathy. Ventricles: Normal. No ventriculomegaly. Bones/joints: Unremarkable. No acute fracture. Sinuses: Visualized sinuses are unremarkable. No fluid levels. Mastoid air cells: Visualized mastoid air cells are well aerated. Soft tissues: Unremarkable. Other findings: Examination is limited secondary to motion artifact. CT/CT head wo con* [id number] IMPRESSION: No acute intracranial findings. Radiation Dose CTDIVOL = (mGy): DLP = 744.96 (mGy-cm) Dictated By: Saul Hu MD Signed By: Saul Hu MD Signed Date/Time: 12/29/19 1357 DD/ 1355 CT Abd/Pel: Radiologist's impression: [facility] [address] [place] [address] CT Scan Report Signed Patient: Kathryn Brice Unit #: [id number] : 1960 Age/Sex: 59 / F ADM Date: 12/29/19 Loc: ER Room/Bed: Attending Dr: Ordering Provider/Ordering MD: Kacey Maxwell DO Date of Service: 12/29/19 Procedure(s): CT abdomen pelvis w con* [id number] Accession Number(s): [id number] Report Number: [id number] PROCEDURE INFORMATION: Exam: CT Abdomen And Pelvis With Contrast Exam date and time: 12/29/2019 1:02 PM Age: 59 years old Clinical indication: Abdominal pain; Localized; Prior surgery; Surgery date: 6+ months; Surgery type: Colostomy, appy, bladder; Patient HX: C/O lower abd/pelvic pain, the previous CT abdomen pelvis revealed a history of colon cancer with colectomy. TECHNIQUE: Imaging protocol: Computed tomography of the abdomen and pelvis with intravenous contrast. Radiation optimization: All CT scans at this facility use at least one of these dose optimization techniques: automated exposure control; mA and/or kV adjustment per patient size (includes targeted exams where dose is matched to clinical indication); or iterative reconstruction. Contrast material: OMNI 300; Contrast volume: 95 ml; Contrast route: INTRAVENOUS (IV); COMPARISON: CT abdomen pelvis w con* [id number] 12/23/2019 1:44 AM RADIATION DOSE METRICS: Total DLP (mGy-cm): 359.27 FINDINGS: Liver: Normal. No mass. Gallbladder and bile ducts: Normal. No calcified stones. No ductal dilation. Pancreas: Normal. No ductal dilation. Spleen: One or more accessory splenules. Adrenals: Normal. No mass. Kidneys and ureters: Left renal simple cyst measuring >1.0 cm. Stable duplicated right collecting system with significant upper pole and lower pole hydronephrosis/ectasia. Left extrarenal pelvis. Stomach and bowel: Continued [id number] wall thickening in the rectum consistent with mild to moderate proctitis. Possible partial resection of the colon in the region of the rectosigmoid colon. Continued left lower quadrant ostomy. Continued or recurrent small bowel obstruction with dilated loops of small bowel up to 3.6 cm in diameter with transition point over the right paramedian abdomen/pelvis, anterior to the L5-S1 disc space, axial series 2, images 51-54. Again, the transition point appears to be either a volvulus or postoperative stricture. There is continued decompressed bowel distal to the transition point which has continued bowel wall thickening . Appendix: No evidence of appendicitis. Intraperitoneal space: Unremarkable. No free air. No significant fluid collection. Vasculature: One or more calcified pelvic phleboliths. Lymph nodes: Unremarkable. No enlarged lymph nodes. Bladder: Unremarkable as visualized. Reproductive: Unremarkable as visualized. Bones/joints: Unremarkable. No acute fracture. Soft tissues: Unremarkable. CT/CT abdomen pelvis w con* [id number] IMPRESSION: 1. Stable duplicated right collecting system with significant upper pole and lower pole hydronephrosis/ectasia. 2. Continued [id number] wall thickening in the rectum consistent with mild to moderate proctitis. 3. Possible partial resection of the colon in the region of the rectosigmoid colon. 4. Continued left lower quadrant ostomy. 5. Continued or recurrent small bowel obstruction with dilated loops of small bowel up to 3.6 cm in diameter with transition point over the right paramedian abdomen/pelvis, anterior to the L5-S1 disc space, axial series 2, images 51-54. Again, the transition point appears to be either a volvulus or postoperative stricture. There is continued decompressed bowel distal to the transition point which has continued bowel wall thickening . COMMENTS: Consistent with the [employer]'s Incidental Findings Committee white paper (J Am Génesis Radiol 2018): Any incidental renal lesion less than 1.0 cm or classified as too small to characterize, or any incidental cystic renal lesion characterized as simple-appearing, is likely benign. No follow-up imaging is recommended for these lesions per consensus recommendations based on imaging criteria. Radiation Dose CTDIVOL = (mGy): DLP = 359.27 (mGy-cm) Dictated By: Saul Hu MD Signed By: Saul Hu MD Signed Date/Time: 12/29/19 1356 DD/ 1355 CXR: Attestation: I personally reviewed and interpreted this imaging study as follows: My impression: After repositioning NG tube with appropriate placement. Discharge Plan Discharge Patient Disposition: Xfer Short-Term Hosp Clinical Impression: Small bowel obstruction Condition: Stable Referrals: Ciera Jeff MD [Primary Care Provider] - Coding Level of Care Code ED [facility] for Chg Fwd Exam Comprehensive
[2019-12-29] MEDS: sodium chloride 0.9% 1,000 ML 100 ML IV (12:30)
[2019-12-29 12:53] VITALS: RESP 14
[2019-12-29] MEDS: ondansetron 2 mg/ML SDV 2 mL 4 MG IVP ×3 (12:53→16:00)
[2019-12-29] MEDS: sodium chloride 0.9% 1,000 ML 999 ML IV (12:53)
[2019-12-29] MEDS: morphine 4 mg/mL SDV 1 mL IVP ×3 (12:53→16:00)
[2019-12-29 13:08] LABS: Basophils % 0.5 %; Eosinophils # 0.1 10^3/uL (0.0-0.8); Hematocrit 36.1 % (37.0-47.0); Hemoglobin 12.1 g/dL (11.5-15.3); Lymphocytes # 1.1 10^3/uL (0.8-4.8); Lymphocytes % 17.5 %; Mean Corpuscular HGB Conc 33.5 g/dL (30.0-36.0); Mean Corpuscular Hemoglobin 33.6 pg (28.0-34.0); Mean Corpuscular Volume 100.3 fL (81-99); Mean Platelet Volume 9.8 fL (7.4-10.4); Monocytes # 0.5 10^3/uL (0.2-0.9); Monocytes % 8.2 %; Neutrophils # 4.51 10^3/uL (1.8-7.7); Neutrophils % 72.3 %; Nucleated Red Blood Cells % 0 %; Platelet Count 153 10^3/cmm (130-400); Red Cell Distribution Width 14.7 % (12.1-15.1); White Blood Count 6.2 10^3/uL (4.0-10.0)
[2019-12-29] MEDS: iohexol 300 mg/mL 100 mL Btl IV (13:25)
[2019-12-29 13:32] LABS: Lactic Sepsis W/Reflex 1.2 mmol/L (0.5-2.2)
[2019-12-29 13:34] LABS: Alanine Aminotransferase 8 U/L (0-33); Albumin Level 3.5 g/dL (3.5-5.2); Alkaline Phosphatase 88 IU/L (35-105); Anion Gap 11.6 (5-19); Aspartate Amino Transferase 13 U/L (0-32); Blood Urea Nitrogen 8 mg/dL (6-20); Calcium 8.8 mg/dL (8.5-10.5); Carbon Dioxide 30 mmol/L (22-29); Chloride 102 mmol/L (98-107); Globulin 2.5 g/dL (1.3-4.6); Glomerular Filtration Rate 73.4 mL/min (90-130); Glucose 111 mg/dL (65-115); Lipase 31 U/L (13-60); Magnesium 1.9 mg/dL (1.7-2.3); Osmolality Calculated 287 mOsm/kg (285-295); Potassium 3.6 mmol/L (3.5-5.1); Sodium 140 mmol/L (136-145); Total Bilirubin 0.4 mg/dL (0.15-1.2)
[2019-12-29 14:10] LABS: Add Urine Microscopic? NO
[2019-12-29 14:13] LABS: Bilirubin Urine Neg (NEGATIVE); Blood Urine Neg (Negative); Glucose Urine UA Norm (Normal); Ketones Urine Negative (Negative); Leukocyte Esterase Urine Negative (Negative); Nitrate Urine Negative (Negative); Protein Urine Neg (Negative); Specific Gravity, Urine 1.015 (1.005-1.030); Sulfosalicylic Acid Urine Negative (Negative); Urine Appearance Clear (CLEAR); Urine Color Yellow (Yellow); Urobilinogen Urine Norm (Negative); pH Urine 8 (5-7)
--- NOTE | 2019-12-29 15:04 | XRR_ITS ---
PROCEDURE INFORMATION: Exam: XR Chest, 1 View Exam date and time: 12/29/2019 3:04 PM Age: 59 years old Clinical indication: Device placement; Ng tube; Additional info: Ng tube placement TECHNIQUE: Imaging protocol: XR of the chest Views: 1 view. COMPARISON: CR XR chest 1V portable [id number] 12/23/2019 3:19 AM FINDINGS: Tubes, catheters and devices: There is an orogastric tube with tip just below the diaphragm. The side hole is above the diaphragm. This should be advanced at least 5 cm for ideal placement. There is a right IJ port with tip in the superior vena cava. Lungs: The lungs are hyperinflated with mild basilar fibrotic changes. No lobar consolidation. Pleural space: Unremarkable. No pleural effusion. No pneumothorax. Heart/Mediastinum: Unremarkable. No cardiomegaly. Bones/joints: No acute abnormality. XR/XR chest 1V portable [id number] IMPRESSION: There is an orogastric tube with tip just below the diaphragm. The side hole is above the diaphragm. This should be advanced at least 5 cm for ideal placement.
[2019-12-29 15:20] VITALS: RESP 15
--- NOTE | 2019-12-29 15:54 | XRR_ITS ---
PROCEDURE INFORMATION: Exam: XR Chest, 1 View Exam date and time: 12/29/2019 3:55 PM Age: 59 years old Clinical indication: Device placement; Ng tube; Additional info: Ng tube replacement TECHNIQUE: Imaging protocol: XR of the chest Views: 1 view. COMPARISON: CR (CHEST, ) 12/29/2019 3:16 PM FINDINGS: Tubes, catheters and devices: There is an orogastric tube in good position with tip in the stomach. There is a right IJ port with tip in the superior vena cava. Lungs: The lungs are hyperinflated but clear with mild basilar fibrosis. Pleural space: Unremarkable. No pleural effusion. No pneumothorax. Heart/Mediastinum: Unremarkable. No cardiomegaly. Bones/joints: No acute abnormality. Organs: Duplicated right renal collecting system is incidentally noted with hydronephrosis of the lower pole moiety. This was visualized on the CT scan of the same day. XR/XR chest 1V portable [id number] IMPRESSION: There is an orogastric tube in good position with tip in the stomach.
[2019-12-29 16:00] VITALS: RESP 16
[2019-12-29] MEDS: metoclopramide 5 mg/mL SDV 2 mL 10 MG IV (16:10)
[2019-12-29 17:39] VITALS: BP 145/70; PULSE 70; RESP 12; O2SAT 98
== END 2019-12-29 17:40 | disposition short-term general hospital (02) ==
PROVIDERS: Nurse Practitioner Family; Emergency Provider Emergency Medicine; PCP Family Medicine
DX: K56.609 Unspecified intestinal obstruction, unspecified as to partial versus complete obstruction (principal); Z87.891 Personal history of nicotine dependence
CPT/HCPCS: 12345; 36415; 70450; 71045; 74177; 80053; 81003; 83605; 83690; 83735; 85025; 96361; 96374; 96375; 96376; 99283; 99285; J2270; J2405; J2765; J7030; Q9967

== ENCOUNTER → 2020-01-13 08:17 | Day surgery (SDC) | payer OTHER, SELFPAY ==
[2020-01-13 08:38] VITALS: BP 111/67; PULSE 84; RESP 18; TEMP 36.9; O2SAT 99
[2020-01-13 09:22] LABS: Basophils % 0.6 %; Eosinophils # 0.1 10^3/uL (0.0-0.8); Eosinophils % 2.8 %; Hematocrit 35.6 % (37.0-47.0); Hemoglobin 11.4 g/dL (11.5-15.3); Lymphocytes # 0.9 10^3/uL (0.8-4.8); Lymphocytes % 17.4 %; Mean Corpuscular Hemoglobin 32.2 pg (28.0-34.0); Mean Corpuscular Volume 100.6 fL (81-99); Mean Platelet Volume 10.8 fL (7.4-10.4); Monocytes # 0.5 10^3/uL (0.2-0.9); Monocytes % 10.2 %; Nucleated Red Blood Cells % 0 %; Platelet Count 204 10^3/cmm (130-400); Red Blood Count 3.54 10^6/uL (4.1-5.3); Red Cell Distribution Width 14.1 % (12.1-15.1)
[2020-01-13 09:37] LABS: Alanine Aminotransferase 10 U/L (0-33); Albumin Level 3.7 g/dL (3.5-5.2); Alkaline Phosphatase 102 IU/L (35-105); Anion Gap 14.1 (5-19); Aspartate Amino Transferase 20 U/L (0-32); Blood Urea Nitrogen 15 mg/dL (6-20); Calcium 8.8 mg/dL (8.5-10.5); Carbon Dioxide 28 mmol/L (22-29); Chloride 101 mmol/L (98-107); Globulin 2.7 g/dL (1.3-4.6); Glomerular Filtration Rate 102.3 mL/min (90-130); Glucose 113 mg/dL (65-115); Magnesium 2.2 mg/dL (1.7-2.3); Osmolality Calculated 285 mOsm/kg (285-295); Phosphorus 5.3 mg/dL (2.5-4.5); Potassium 4.1 mmol/L (3.5-5.1); Sodium 139 mmol/L (136-145); Total Bilirubin 0.2 mg/dL (0.15-1.2); Total Protein 6.4 g/dL (6.6-8.7)
== END ==
PROVIDERS: PCP Family Medicine; Visit Provider Surgery
DX: Z48.01 Encounter for change or removal of surgical wound dressing (principal); K56.609 Unspecified intestinal obstruction, unspecified as to partial versus complete obstruction
CPT/HCPCS: 15852; 36592; 80053; 83735; 84100; 85025

== ENCOUNTER 2020-01-26 11:09 | Emergency (ER) | payer OTHER, SELFPAY ==
[2020-01-26 11:36] VITALS: BP 97/64; PULSE 98; RESP 18; TEMP 36.8; O2SAT 97; BMI 19.2
--- NOTE | 2020-01-26 12:49 | CTR_ITS ---
PROCEDURE INFORMATION: Exam: CT Abdomen And Pelvis With Contrast Exam date and time: 01/26/2020 1:39 PM Age: 60 years old Clinical indication: Other: Bleeding; Prior surgery; Surgery date: <1 month; Surgery type: Colon resection. Multiple previous; Patient HX: 01/16 colon resection w blood in ostomy this morning; Additional info: Abd pain TECHNIQUE: Imaging protocol: Computed tomography of the abdomen and pelvis with intravenous contrast. Radiation optimization: All CT scans at this facility use at least one of these dose optimization techniques: automated exposure control; mA and/or kV adjustment per patient size (includes targeted exams where dose is matched to clinical indication); or iterative reconstruction. Contrast material: OMNI 300; Contrast volume: 95 ml; Contrast route: INTRAVENOUS (IV); COMPARISON: CT abdomen pelvis w con* [id number] 12/29/2019 1:11 PM RADIATION DOSE METRICS: Total DLP (mGy-cm): 347.06 FINDINGS: Liver: Normal. No mass. Gallbladder and bile ducts: Normal. No calcified stones. No ductal dilation. Pancreas: Normal. No ductal dilation. Spleen: Normal. No splenomegaly. Adrenals: Normal. No mass. Kidneys and ureters: Duplicated right renal collecting system with dilatation of lower pole moiety, unchanged. Extrarenal left renal pelvis. 8 mm posterior left renal simple appearing cyst, unchanged. Stomach and bowel: Air-fluid levels in the stomach and proximal small bowel. No significant bowel dilatation to indicate a bowel obstruction. Left-sided ostomy in place, unchanged. Apparent cecal wall/mucosal fold thickening (series 2, axial image 59 through 69) could indicate some localized colitis. Interval rectal surgery. Appendix: No evidence of appendicitis. Intraperitoneal space: Small amounts of scattered free fluid/ascites, unchanged or slightly increased. Intra-abdominal fat haziness and stranding was present previously but appears increased and is again most pronounced about the rectum and presacral region. Much of this may be postoperative in nature versus inflammation/peritonitis. There are 2 tiny air bubbles in bowel mesentery which are probably iatrogenic from recent surgery (series 2, axial image 52 and 53). 4.7 x 3.2 x 2.6 cm rim enhancing fluid collection in the lower anterior pelvic region beneath the abdominal wall (series 2, axial image 61 through 69) may be a small postoperative seroma versus early abscess. Vasculature: Unremarkable. No abdominal aortic aneurysm. Lymph nodes: Unremarkable. No enlarged lymph nodes. Urinary bladder: Small amount of urinary bladder air is presumably iatrogenic from recent instrumentation. Reproductive: Unremarkable as visualized. Bones/joints: Unremarkable. No acute fracture. Soft tissues: Row of skin closure denise in place lower abdomen. CT/CT abdomen pelvis w con* [id number] IMPRESSION: 1.) Small amounts of scattered free fluid/ascites, unchanged or slightly increased. Intra-abdominal fat haziness and stranding was present previously but appears increased and is again most pronounced about the rectum and presacral region. Much of this may be postoperative in nature versus inflammation/peritonitis. 4.7 x 3.2 x 2.6 cm rim enhancing fluid collection in the lower anterior pelvic region beneath the abdominal wall (series 2, axial image 61 through 69) may be a small postoperative seroma versus early abscess. 2.) Interval rectal surgery. Left-sided ostomy in place, unchanged. No obvious bowel obstruction. 3.) Apparent cecal wall/mucosal fold thickening (series 2, axial image 59 through 69) could indicate some localized colitis. Radiation Dose CTDIVOL = (mGy): DLP = 347.06 (mGy-cm)
--- NOTE | 2020-01-26 12:51 | ECG_ITS ---
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 Measurements Intervals [place] Rate: 83 P: 70 LA: 130 QRS: 24 QRSD: 79 T: 21 QT: 359 QTc: 423 Interpretive Statements SINUS RHYTHM POSSIBLE RIGHT VENTRICULAR CONDUCTION DELAY [RSR (QR) IN V1/V2] No previous ECG available for comparison Electronically Signed On 01-26-2020 19:15:14 CDT by Charles Junior M.D. [id number]
[2020-01-26 13:21] LABS: Basophils % 0.3 %; Eosinophils % 0.2 %; Hematocrit 26.7 % (37.0-47.0); Hemoglobin 8.3 g/dL (11.5-15.3); Lymphocytes # 0.9 10^3/uL (0.8-4.8); Lymphocytes % 8.3 %; Mean Corpuscular HGB Conc 31.1 g/dL (30.0-36.0); Mean Corpuscular Hemoglobin 30.9 pg (28.0-34.0); Mean Corpuscular Volume 99.3 fL (81-99); Mean Platelet Volume 9.5 fL (7.4-10.4); Monocytes # 0.6 10^3/uL (0.2-0.9); Monocytes % 5.6 %; Neutrophils % 83.7 %; Nucleated Red Blood Cells % 0 %; Platelet Count 433 10^3/cmm (130-400); Red Blood Count 2.69 10^6/uL (4.1-5.3); Red Cell Distribution Width 14.5 % (12.1-15.1); White Blood Count 10.3 10^3/uL (4.0-10.0)
[2020-01-26 13:35] LABS: INR 0.99 (0.8-1.2); Partial Thromboplastin Time 35.2 SECONDS (23.9-36.7)
[2020-01-26 13:41] LABS: Alanine Aminotransferase 8 U/L (0-33); Albumin Level 2.9 g/dL (3.5-5.2); Alkaline Phosphatase 87 IU/L (35-105); Anion Gap 15.9 (5-19); Aspartate Amino Transferase 13 U/L (0-32); Blood Urea Nitrogen 6 mg/dL (8-23); Calcium 8.8 mg/dL (8.5-10.5); Carbon Dioxide 27 mmol/L (22-29); Chloride 96 mmol/L (98-107); Globulin 3.3 g/dL (1.3-4.6); Glomerular Filtration Rate 125.9 mL/min (90-130); Glucose 98 mg/dL (65-115); Osmolality Calculated 278 mOsm/kg (285-295); Potassium 3.9 mmol/L (3.5-5.1); Sodium 135 mmol/L (136-145); Total Bilirubin 0.2 mg/dL (0.15-1.2); Total Protein 6.2 g/dL (6.6-8.7)
--- NOTE | 2020-01-26 13:44 | W.ED.GIBLEED ---
HPI - GI Bleed General: Chief complaint: GI Bleed Stated complaint: blood in stool Time Seen by Provider: 01/26/20 12:49 History of Present Illness: HPI Narrative: 60 yo presents emergency room with. She has colon cancer and recently had resection she was not feeling too well last night had a T-max of 100.3 over the last couple of days she did not have any specific symptoms no myalgias no cough no shortness of breath this morning she had 350 mL of dark red blood in her colostomy bag she has another 200 in her bag now and we are seeing her here. She has not had any vomiting. She has generalized abdominal discomfort but nothing specific. MD complaint: melena Onset (ago): day(s) Pain Consistency: constant Severity: moderate Relieving factors: none Exacerbating factors: none Context: history of GI bleed and other (Colon cancer with resection) Associated symptoms: Reports abdominal pain, chills, fever(s), nausea and poor appetite; Denies easy bruising, epistaxis, headache(s), malaise, other bleeding, rash, syncope, vomiting or weakness Treatments Prior to Arrival: none Review of Systems Const: Reports: fever(s) and chills; Denies: malaise ENMT: Denies: epistaxis Card: Denies: syncope Resp: Denies: dyspnea, productive cough or non-productive cough GI: Reports: abdominal pain and nausea; Denies: vomiting : Denies: flank pain, difficulty voiding, dysuria, urinary frequency or urinary urgency Skin/Breast: Denies: rash Neuro: Denies: headache(s) Coy/Lymph: Denies: easy bruising PFS ED PFSH: Medical History 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 Maloney [place] Surgical History H/O colectomy Diverting colostomy placement History of appendectomy History of bilateral tubal ligation History of bladder surgery S/P ureteral stent placement Placed in August 2019 and removed in September 2019 secondary to severe intolerable discomfort. Sounds like metallic stents. Family History Other CAD (coronary artery disease) Denies family history of Diabetes Hyperlipidemia Cancer Hypertension Social History Smoking and tobacco status: former smoker Alcohol intake: current Alcohol intake frequency: holidays/special occasions only Substance/Drug Use: never Household members: family Housing: House Physical Exam Const: COMMON NORMALS: no acute distress GENERAL APPEARANCE: cooperative and comfortable ORIENTATION/CONSCIOUSNESS: Yes awake, Yes oriented to person, Yes oriented to place and Yes oriented to time HENMT: COMMON NORMALS: normocephalic, atraumatic and hearing grossly normal bilaterally HEAD & SCALP: normocephalic and atraumatic Eye: COMMON NORMALS: Equal, round and reactive pupils present, EOMs intact bilaterally, conjunctivae normal and no scleral icterus CONJUNCTIVA: Yes conjunctivae normal PUPIL: Yes Equal, round and reactive pupils present Neck/C-Spine: COMMON NORMALS: no JVD Resp: COMMON NORMALS: normal respiratory effort, No retractions, No use of accessory muscles and clear to auscultation bilaterally AUSCULTATION: clear to auscultation bilaterally Cardio: COMMON NORMALS: no JVD, regular rate, regular rhythm and No murmurs present (Cardio) RATE: regular rate RHYTHM: regular rhythm GI: COMMON NORMALS: Soft to palpation and No hepatosplenomegaly present AUSCULTATION: Yes normoactive bowel sounds PALPATION: Yes Soft to palpation, No Tenderness to palpation present (GI), No Guarding due to palpation present (GI) and Yes No hepatosplenomegaly present Extremity: COMMON NORMALS: normal to inspection, capillary refill normal, no clubbing, cyanosis or edema, no calf tenderness and no pedal edema Neuro: SENSORIUM/ORIENTATION: Yes oriented to person, Yes oriented to place and Yes oriented to time Course Vital Signs: Vital signs: Vital Signs Temperature 98.2 F 01/26/20 11:36 Pulse Rate 98 01/26/20 11:36 Respiratory Rate 18 01/26/20 11:36 Blood Pressure 97/64 01/26/20 11:36 Pulse Oximetry 97 01/26/20 11:36 MDM - GI Bleed MDM Narrative: Medical decision making narrative: CT shows little thickening of the colon distal to the ostomy which is probably from evacuation. There is some ascites present but not a significant amount more than previously no significant finding to explain the bleeding in the ostomy bag. Discussed Dr. Cook at [place] he will accept patient in transfer waiting on room assignment Lab Data: Labs: Lab Results 01/26/20 01/26/20 01/26/20 Range/Units 13:10 13:10 13:10 WBC 10.3 H (4.0-10.0) 10^3/ uL RBC 2.69 L (4.1-5.3) 10^6/u L Hgb 8.3 L (11.5-15.3) g/dL Hct 26.7 L (37.0-47.0) % MCV 99.3 H (81-99) fL MCH 30.9 (28.0-34.0) pg MCHC 31.1 (30.0-36.0) g/dL RDW 14.5 (12.1-15.1) % Plt Count 433 H (130-400) 10^3/c mm MPV 9.5 (7.4-10.4) fL Neut % (Auto) 83.7 % Lymph % (Auto) 8.3 % [place] % (Auto) 5.6 % Eos % (Auto) 0.2 % Baso % (Auto) 0.3 % Neut # (Auto) 8.60 H (1.8-7.7) 10^3/u L Lymph # (Auto) 0.9 (0.8-4.8) 10^3/u L [place] # (Auto) 0.6 (0.2-0.9) 10^3/u L Eos # (Auto) 0.0 (0.0-0.8) 10^3/u L Baso # (Auto) 0.0 (0.0-0.1) 10^3/u L Nucleated RBC % (a uto) 0 % Nucleated RBCs # 0.0 /100WBC PT 13.40 (12.1-14.9) SECO NDS INR 0.99 (0.8-1.2) APTT 35.2 (23.9-36.7) SECO NDS Sodium 135 L (136-145) mmol/L Potassium 3.9 (3.5-5.1) mmol/L Chloride 96 L (98-107) mmol/L Carbon Dioxide 27 (22-29) mmol/L Anion Gap 15.9 (5-19) BUN 6 L (8-23) mg/dL Creatinine 0.5 (0.5-0.9) mg/dL GFR Calculation 125.9 (90-130) mL/min Glucose 98 (65-115) mg/dL Calculated Osmolal ity 278 L (285-295) mOsm/k g Calcium 8.8 (8.5-10.5) mg/dL Total Bilirubin 0.2 (0.15-1.2) mg/dL AST 13 (0-32) U/L ALT 8 (0-33) U/L Alkaline Phosphata se 87 (35-105) IU/L Total Protein 6.2 L (6.6-8.7) g/dL Albumin 2.9 L (3.5-5.2) g/dL Globulin 3.3 (1.3-4.6) g/dL Urine Color (Yellow) Urine Appearance (CLEAR) Urine pH (5-7) Ur Specific Gravit y (1.005-1.030) Urine Protein (Negative) Urine Glucose (UA) (Normal) Urine Ketones (Negative) Urine Blood (Negative) Urine Nitrate (Negative) Urine Bilirubin (Negative) Urine Urobilinogen (Negative) mg/dL Ur Leukocyte Crystal ase (Negative) 01/26/20 Range/Units 14:51 WBC (4.0-10.0) 10^3/ uL RBC (4.1-5.3) 10^6/u L Hgb (11.5-15.3) g/dL Hct (37.0-47.0) % MCV (81-99) fL MCH (28.0-34.0) pg MCHC (30.0-36.0) g/dL RDW (12.1-15.1) % Plt Count (130-400) 10^3/c mm MPV (7.4-10.4) fL Neut % (Auto) % Lymph % (Auto) % [place] % (Auto) % Eos % (Auto) % Baso % (Auto) % Neut # (Auto) (1.8-7.7) 10^3/u L Lymph # (Auto) (0.8-4.8) 10^3/u L [place] # (Auto) (0.2-0.9) 10^3/u L Eos # (Auto) (0.0-0.8) 10^3/u L Baso # (Auto) (0.0-0.1) 10^3/u L Nucleated RBC % (a uto) % Nucleated RBCs # /100WBC PT (12.1-14.9) SECO NDS INR (0.8-1.2) APTT (23.9-36.7) SECO NDS Sodium (136-145) mmol/L Potassium (3.5-5.1) mmol/L Chloride (98-107) mmol/L Carbon Dioxide (22-29) mmol/L Anion Gap (5-19) BUN (8-23) mg/dL Creatinine (0.5-0.9) mg/dL GFR Calculation (90-130) mL/min Glucose (65-115) mg/dL Calculated Osmolal ity (285-295) mOsm/k g Calcium (8.5-10.5) mg/dL Total Bilirubin (0.15-1.2) mg/dL AST (0-32) U/L ALT (0-33) U/L Alkaline Phosphata se (35-105) IU/L Total Protein (6.6-8.7) g/dL Albumin (3.5-5.2) g/dL Globulin (1.3-4.6) g/dL Urine Color Yellow (Yellow) Urine Appearance Clear (CLEAR) Urine pH 5 (5-7) Ur Specific Gravit y 1.020 (1.005-1.030) Urine Protein Neg (Negative) Urine Glucose (UA) Norm (Normal) Urine Ketones 1+ H (Negative) Urine Blood Neg (Negative) Urine Nitrate Negative (Negative) Urine Bilirubin Neg (Negative) Urine Urobilinogen Norm (Negative) mg/dL Ur Leukocyte Crystal ase Negative (Negative) Discharge Plan Discharge Patient Disposition: Xfer Short-Term Hosp Clinical Impression: GI (gastrointestinal bleed), Rectal cancer, Colostomy in place Condition: Stable Referrals: Ciera Jeff MD [Primary Care Provider] - Coding Level of Care Code ED Mobile Homes Repairer for Chg Fwd Exam Comprehensive
[2020-01-26] MEDS: iohexol 300 mg/mL 100 mL Btl 95 ML IV (13:45)
--- NOTE | 2020-01-26 14:16 | XRR_ITS ---
PROCEDURE INFORMATION: Exam: XR Chest, 1 View Exam date and time: 01/26/2020 2:16 PM Age: 60 years old Clinical indication: Cough and dyspnea; Additional info: Dyspnea/cough TECHNIQUE: Imaging protocol: XR of the chest Views: 1 view. COMPARISON: CR (CHEST, ) 12/29/2019 4:13 PM FINDINGS: Tubes, catheters and devices: Right jugular chest port in place. Lungs: Unremarkable. No consolidation. Pleural space: Unremarkable. No pleural effusion. No pneumothorax. Heart/Mediastinum: Unremarkable. No cardiomegaly. Bones/joints: Unremarkable. XR/XR chest 1V portable [id number] IMPRESSION: No acute process evident.
[2020-01-26 14:54] LABS: Add Urine Microscopic? NO
[2020-01-26 14:57] LABS: Bilirubin Urine Neg (Negative); Blood Urine Neg (Negative); Glucose Urine UA Norm (Normal); Ketones Urine 1+ (Negative); Leukocyte Esterase Urine Negative (Negative); Nitrate Urine Negative (Negative); Protein Urine Neg (Negative); Urine Appearance Clear (CLEAR); Urine Color Yellow (Yellow); Urobilinogen Urine Norm (Negative); pH Urine 5 (5-7)
[2020-01-26] MEDS: sodium chloride 0.9% 1,000 ML 999 ML IV (15:51)
--- NOTE | 2020-01-26 16:57 | PC.NURSE ---
Read and agree with assessment
[2020-01-26 17:41] VITALS: BP 148/75; PULSE 75; RESP 15; O2SAT 98
== END 2020-01-26 17:42 | disposition short-term general hospital (02) ==
PROVIDERS: Emergency Provider Family Medicine; PCP Family Medicine
DX: K92.2 Gastrointestinal hemorrhage, unspecified (principal); C20 Malignant neoplasm of rectum; Z93.3 Colostomy status; Z87.891 Personal history of nicotine dependence
CPT/HCPCS: 12345; 71045; 74177; 80053; 81003; 85025; 85610; 85730; 93005; 96360; 99283; 99285; J7030; Q9967

== ENCOUNTER 2020-04-14 14:09 | Emergency (ER) | payer OTHER, SELFPAY ==
[2020-04-14] VITALS (8 sets, daily range): BP systolic 100–139; BP diastolic 64–94; PULSE 81–100; RESP 12–19; TEMP 36.6; O2SAT 91–98; BMI 18.2
--- NOTE | 2020-04-14 14:47 | ECG_ITS ---
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 Measurements Intervals [place] Rate: 84 P: 73 AL: 119 QRS: 62 QRSD: 79 T: 58 QT: 368 QTc: 437 Interpretive Statements SINUS RHYTHM WITH SHORT AL INTERVAL POSSIBLE RIGHT VENTRICULAR CONDUCTION DELAY [RSR (QR) IN V1/V2] Compared to ECG 01/26/2020 16:29:11 Short AL interval now present Electronically Signed On 04-14-2020 19:26:33 SUBSTATION MECHANIC by Carly Smart M.D. [id number]
--- NOTE | 2020-04-14 14:47 | USCV_ITS ---
Kathryn Brice Age: 60 Gender: F : 1960 Exam Date: 04/14/2020 15:03 Ordering Phys: Elias Shen MD Technologist: Jessica Flores Exam Location: [facility] Indication: LLE pain and swelling, DVT HISTORY: Lower extremity swelling. Lower extremity pain. PROCEDURES: Venous duplex imaging was performed in only the left lower extremity. The following venous structures were evaluated: common femoral vein, profunda vein, proximal portion of the greater saphenous vein, superficial femoral vein, and the popliteal vein. In addition, the posterior tibial and peroneal trunk were evaluated. Serial compression, augmentation maneuvers, and spectral Doppler flow evaluation were performed. FINDINGS: +DVT seen from left CFV, Profunda, SFV Prox-Dist and Pop V. Left PTV and Perno V appear patent CONCLUSIONS DVT Left CFV, profunda, femoral, and popliteal veins. Calf veins are patent Additional thrombus in the GSV proximal thigh Clovis Francisco MD (Electronically Signed) Final Date: 14 April 2020 17:11 S
--- NOTE | 2020-04-14 14:47 | XR_ITS ---
WS: [id number] XR chest 1V portable [id number] REASON FOR EXAM: sob FINDINGS: The chest is unchanged compared to 01/26/2020. The heart and mediastinum are within normal limits. Chemotherapy port right chest, right IJ access, unchanged in position. Calcified granulomatous changes in both lungs. No active pulmonary parenchymal or pleural disease. XR/XR chest 1V portable [id number] IMPRESSION: Stable chest without acute abnormality.
--- NOTE | 2020-04-14 14:47 | CT_ITS ---
WS: [id number] CT angio chest PE protcl [id number] REASON FOR EXAM: sob TECHNIQUE: Coronal and sagittal 2-D and MIP reformations. IV CONTRAST ADMINISTERED: 52 mL of Omnipaque 350 TOTAL EXAM DLP: 422.[address] scans at [facility] use at least one of these dose optimization techniques: automat ed exposure control; mA and/or kV adjustment per patient size (includes targeted exams where dose is matched to clinical indication); or iterative reconstruction. FINDINGS: There are no pulmonary emboli. The thoracic aorta is normal. No significant mediastinum or hilar abnormality. There is no groundglass density or significant cystic change. There are no focal areas of lung consol idation. There is an underlying interstitial pattern that is compatible with chronic small airway dis ease. There is no pleural fluid. CT/CT angio chest PE protcl [id number] IMPRESSION: There are no pulmonary emboli or other acute pulmonary abnormality. There is an interstitial pattern indicative of chronic small airway disease.
--- NOTE | 2020-04-14 14:51 | W.ED.SOB ---
HPI - SOB/Dyspnea General: Chief Complaint: Shortness of Breath/Dyspnea Stated Complaint: SOB/Swelling in Left ankle/Pain in Groin Time Seen by Provider: 04/14/20 14:44 Source: patient Mode of arrival: ambulatory Limitations: no limitations History of Present Illness: HPI Narrative: 60-year-old female with a history of colorectal cancer is currently on chemo. She states that this morning she was having exertional dyspnea she noticed when she walked to the mailbox. She is also had some swelling to her left leg. She is concerned she may have a blood clot. She denies any chest pain denies any fevers. Her dyspnea is improved with rest and she has no shortness of breath at rest. MD elicited complaint: shortness of breath Associated symptoms: Deny abdominal pain, chest pain, fever(s), nausea or vomiting Review of Systems Const: Denies: fever(s), chills, body aches or change in appetite Eyes: Denies: blurry vision or eye discomfort ENMT: Denies: throat pain or dental pain Card: Denies: chest pain Resp: Reports: dyspnea GI: Denies: abdominal pain, nausea, vomiting or diarrhea : Denies: dysuria Musc: Denies: neck pain or back pain Skin/Breast: Denies: rash Neuro: Denies: headache(s) Psych: Denies: depression Coy/Lymph: Denies: easy bruising All/Imm: Denies: urticaria PFSH ED PFSH: Medical History (Updated 04/14/20 @ 16:51 by Elias Shen MD) 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 Maolney [place] Surgical History H/O colectomy Diverting colostomy placement History of appendectomy History of bilateral tubal ligation History of bladder surgery S/P ureteral stent placement Placed in August 2019 and removed in September 2019 secondary to severe intolerable discomfort. Sounds like metallic stents. Family History Other CAD (coronary artery disease) Denies family history of Diabetes Hyperlipidemia Cancer Hypertension Social History Smoking and tobacco status: former smoker Alcohol intake: current Alcohol intake frequency: holidays/special occasions only Household members: family Housing: House Physical Exam Const: COMMON NORMALS: no acute distress, patient oriented x3 and healthy appearing HENMT: COMMON NORMALS: normocephalic and atraumatic HEAD & SCALP: normocephalic and atraumatic Eye: COMMON NORMALS: Equal, round and reactive pupils present and EOMs intact bilaterally PUPIL: Yes Equal, round and reactive pupils present Neck/C-Spine: COMMON NORMALS: full ROM and supple Chest: COMMONS NORMALS: normal inspection of the chest and normal palpation of entire chest wall Resp: COMMON NORMALS: normal respiratory effort, No retractions, No use of accessory muscles and clear to auscultation bilaterally AUSCULTATION: clear to auscultation bilaterally Cardio: COMMON NORMALS: regular rate, regular rhythm and No murmurs present (Cardio) RATE: regular rate RHYTHM: regular rhythm GI: COMMON NORMALS: Normal to inspection, nondistended, normoactive bowel sounds present, Soft to palpation, non-tender and no masses PALPATION: Yes Soft to palpation Extremity: NARRATIVE EXTREMITY EXAM: Swelling and tenderness to left lower leg distal pulses are intact. Neuro: COMMON NORMALS: patient oriented x3, moves all extremities and no focal motor deficits Psych: COMMON NORMALS: mental status grossly normal, Normal thought process present and cooperative THOUGHT PROCESS: Normal thought process present Skin: COMMON NORMALS: no rashes or lesions noted and no wounds GENERAL SKIN EXAM: no rashes or lesions noted Course Vital Signs: Vital signs: Vital Signs Temperature 97.9 F 04/14/20 14:27 Pulse Rate 84 04/14/20 17:17 Respiratory Rate 16 04/14/20 17:17 Blood Pressure 116/67 04/14/20 17:17 Pulse Oximetry 96 04/14/20 17:17 MDM - SOB/Dyspnea MDM Narrative: Medical decision making narrative: Patient presents with a DVT to her left lower leg. Her CT showed no we will start her on Eliquis and she is to call her oncologist and follow-up in 1 to 2 days. She is to return if she has any worsening symptoms and if she has any dyspnea. She understands and agrees to the plan. Lab Data: Labs: Lab Results 04/14/20 04/14/20 04/14/20 Range/Units 15:27 15:27 15:27 WBC 7.0 (4.0-10.0) 10^3/ uL RBC 4.42 (4.1-5.3) 10^6/u L Hgb 11.4 L (11.5-15.3) g/dL Hct 38.2 (37.0-47.0) % MCV 86.4 (81-99) fL MCH 25.8 L (28.0-34.0) pg MCHC 29.8 L (30.0-36.0) g/dL RDW 22.2 H (12.1-15.1) % Plt Count 112 L (130-400) 10^3/c mm MPV 9.7 (7.4-10.4) fL Neut % (Auto) 72.3 % Lymph % (Auto) 17.7 % Drew % (Auto) 7.3 % Eos % (Auto) 1.9 % Baso % (Auto) 0.4 % Neut # (Auto) 5.03 (1.8-7.7) 10^3/u L Lymph # (Auto) 1.2 (0.8-4.8) 10^3/u L Drew # (Auto) 0.5 (0.2-0.9) 10^3/u L Eos # (Auto) 0.1 (0.0-0.8) 10^3/u L Baso # (Auto) 0.0 (0.0-0.1) 10^3/u L Nucleated RBC % (a uto) 0 % Nucleated RBCs # 0.0 /100WBC PT 14.40 (12.1-14.9) SECO NDS INR 1.09 (0.8-1.2) Sodium 138 (136-145) mmol/L Potassium 3.9 (3.5-5.1) mmol/L Chloride 105 (98-107) mmol/L Carbon Dioxide 24 (22-29) mmol/L Anion Gap 12.9 (5-19) BUN 15 (8-23) mg/dL Creatinine 0.7 (0.5-0.9) mg/dL GFR Calculation 85.4 L (90-130) mL/min Glucose 121 H (65-115) mg/dL Calculated Osmolal ity 288 (285-295) mOsm/k g Calcium 9.3 (8.5-10.5) mg/dL Total Bilirubin 0.2 (0.15-1.2) mg/dL AST 15 (0-32) U/L ALT 14 (0-33) U/L Alkaline Phosphata se 116 H (35-105) IU/L NT-Pro-B Natriuret Pep 62 (0-125) pg/mL Total Protein 6.7 (6.6-8.7) g/dL Albumin 4.0 (3.5-5.2) g/dL Globulin 2.7 (1.3-4.6) g/dL Imaging Data^: CT Chest: Radiologist's impression: [address] [address] [address] Scan Report Signed Patient: Kathryn Brice Unit #: [id number] : 1960 Age/Sex: 60 / F ADM Date: 04/14/20 Loc: ER Room/Bed: Attending Dr: Ordering Provider/Ordering MD: Elias Shen MD Date of Service: 04/14/20 Procedure(s): CT angio chest PE protcl [id number] Accession Number(s): [id number] Report Number: [id number] WS: [id number] CT angio chest PE protcl [id number] REASON FOR EXAM: sob TECHNIQUE: Coronal and sagittal 2-D and MIP reformations. IV CONTRAST ADMINISTERED: 52 mL of Omnipaque 350 TOTAL EXAM DLP: 422.[address] scans at [facility] use at least one of these dose optimization techniques: automated exposure control; mA and/or kV adjustment per patient size (includes targeted exams where dose is matched to clinical indication); or iterative reconstruction. FINDINGS: There are no pulmonary emboli. The thoracic aorta is normal. No significant mediastinum or hilar abnormality. There is no groundglass density or significant cystic change. There are no focal areas of lung consolidation. There is an underlying interstitial pattern that is compatible with chronic small airway disease. There is no pleural fluid. CT/CT angio chest PE protcl [id number] IMPRESSION: There are no pulmonary emboli or other acute pulmonary abnormality. There is an interstitial pattern indicative of chronic small airway disease. EKG Data^: EKG 1: Attestation: I personally reviewed and interpreted this EKG as follows: EKG Interpretation Date: 04/14/20 EKG interpretation time: 15:06 Interpretation: nsr hr [address] or t wave abnormalities qrs 79 qtc 409 Discharge Plan Discharge Patient Disposition: Home Clinical Impression: DVT (deep venous thrombosis) Qualifiers: DVT location: lower extremity Affected thrombotic vein of extremity: unspecified vein of extremity Chronicity: acute Laterality: left Qualified Code(s): I82.402 - Acute embolism and thrombosis of unspecified deep veins of left lower extremity Condition: Stable Prescriptions: New Eliquis 5 mg tablet 10 mg PO BID 7 Days Qty: 28 RF: 0 Eliquis 5 mg tablet 5 mg PO BID Qty: 120 RF: 0 No Action loperamide 2 mg Tablet 2 mg PO Q4H PRN (Reason: Diarrhea) RF: 0 dexamethasone 4 mg tablet See Rx Instructions .ROUTE .COMPLEX RF: 0 Proferrin ES 12 mg Tablet See Rx Instructions .ROUTE .COMPLEX RF: 0 oxycodone 10 mg tablet 10 mg PO DAILY PRN (Reason: Pain) RF: 0 Heparin Flush Kit See Rx Instructions .ROUTE .COMPLEX RF: 0 multivitamin Tablet 1 tab PO DAILY@07 RF: 0 gabapentin 300 mg capsule 300 mg PO DAILY RF: 0 ferrous sulfate 220 mg (44 mg iron)/5 mL elixir 220 mg PO BID RF: 0 escitalopram oxalate [Lexapro] 10 mg Tablet 10 mg PO DAILY@07 RF: 0 prochlorperazine maleate [Compazine] 10 mg Tablet 10 mg PO Q6H PRN (Reason: Nausea) RF: 0 Discharge Orders: Discharge ED (Routine); Ordered 04/14/20 Ordered By: Elias Shen Referrals: Ciera Jeff MD [Primary Care Provider] - Discharge Diet: Advance as tolerated Discharge Activity: Resume usual activity Patient Instructions: Deep Venous Thrombosis (ED) Coding Level of Care Code ED [employer] for Chg Fwd Exam Comprehensive
[2020-04-14 15:35] LABS: Basophils % 0.4 %; Eosinophils # 0.1 10^3/uL (0.0-0.8); Eosinophils % 1.9 %; Hematocrit 38.2 % (37.0-47.0); Hemoglobin 11.4 g/dL (11.5-15.3); Lymphocytes # 1.2 10^3/uL (0.8-4.8); Lymphocytes % 17.7 %; Mean Corpuscular HGB Conc 29.8 g/dL (30.0-36.0); Mean Corpuscular Hemoglobin 25.8 pg (28.0-34.0); Mean Corpuscular Volume 86.4 fL (81-99); Mean Platelet Volume 9.7 fL (7.4-10.4); Monocytes # 0.5 10^3/uL (0.2-0.9); Monocytes % 7.3 %; Neutrophils # 5.03 10^3/uL (1.8-7.7); Neutrophils % 72.3 %; Nucleated Red Blood Cells % 0 %; Platelet Count 112 10^3/cmm (130-400); Red Blood Count 4.42 10^6/uL (4.1-5.3); Red Cell Distribution Width 22.2 % (12.1-15.1)
[2020-04-14] MEDS: iohexol 350 mg/mL 100 mL Btl IV (15:41)
[2020-04-14 15:51] LABS: INR 1.09 (0.8-1.2)
[2020-04-14 16:06] LABS: Alanine Aminotransferase 14 U/L (0-33); Alkaline Phosphatase 116 IU/L (35-105); Anion Gap 12.9 (5-19); Aspartate Amino Transferase 15 U/L (0-32); Blood Urea Nitrogen 15 mg/dL (8-23); Calcium 9.3 mg/dL (8.5-10.5); Carbon Dioxide 24 mmol/L (22-29); Chloride 105 mmol/L (98-107); Globulin 2.7 g/dL (1.3-4.6); Glomerular Filtration Rate 85.4 mL/min (90-130); Glucose 121 mg/dL (65-115); NT Pro B Type Natriuretic Pept 62 pg/mL (0-125); Osmolality Calculated 288 mOsm/kg (285-295); Potassium 3.9 mmol/L (3.5-5.1); Sodium 138 mmol/L (136-145); Total Bilirubin 0.2 mg/dL (0.15-1.2); Total Protein 6.7 g/dL (6.6-8.7)
== END 2020-04-14 17:19 | disposition home or self-care (01) ==
PROVIDERS: Emergency Provider Emergency Medicine; PCP Family Medicine
DX: I82.402 Acute embolism and thrombosis of unspecified deep veins of left lower extremity (principal); Z85.038 Personal history of other malignant neoplasm of large intestine; Z85.048 Personal history of other malignant neoplasm of rectum, rectosigmoid junction, and anus; Z87.891 Personal history of nicotine dependence
CPT/HCPCS: 12345; 71045; 71275; 80053; 83880; 85025; 85610; 93005; 93971; 99283; Q9967

== ENCOUNTER 2020-08-13 13:58 | Outpatient (CLI) | payer OTHER, SELFPAY ==
--- NOTE | 2020-08-17 09:02 | ONC FU_ITS ---
Dr. Hickey follow up note Patient: Kathryn Brice Unit #: [id number]: 1960 Dicatated By: Filemon Hickey M.D.Date of Visit:Aug 13, 2020 Onc Med Follow-up/Prog Note History of Present Illness: Ms. Kathryn Brice, is a 60-year-old female, who was admitted to hospital with abdominal pain nausea vomiting and 20 pound weight loss over the period of 3 months on May 05, 2019, and she underwent CT scan of abdomen which showed rectal wall thickening and a mass and CT scan of abdomen done on May 06, 2019 showed sigmoid pneumatosis consistent with perforation and patient underwent flex sigmoidoscopy on May 08, 2019 subsequently diagnostic laparoscopy converted to laparotomy with Molina procedure by Dr. Burch and pathology showed moderately differentiated invasive adenocarcinoma from the rectum mass biopsy, MMR staining retained by IHC, 11 lymph nodes were negative for metastatic disease., On May 14, 2019 follow-up CT scan of abdomen pelvis showed postoperative changes with fluid and edema adjacent from Rebecca pouch consistent with a leak with peritonitis and ileus. Unchanged rectal mass with a perirectal, perisacral, left common iliac and retroperitoneal lymphadenopathy. Fluid drained by interventional radiologist on May 14, 2019 with the drainage catheter removed on May 17, 2019, on May 27, 2019 pelvic MRIs showed 5.5 cm high rectal mass with multiple mesorectal and inferior mesenteric artery lymph nodes e.g. T4, N2,. Postsurgical changes with consistent with dehiscence of Rebecca's pouch, enlarged left common iliac node. On June 07, 2019 CT scan of chest showed 2 1 to 2 cm nodules within lateral basal segment of left lower lobe and and 1.7 x 1.3 right hilar lymph node. Patient initiated on Epacodostat clinical trial with a short course radiation therapy 3500 rad from June 10-2019, CT scan of chest abdomen pelvis done on June 13, 2019 showed resolution of pelvic collection with residual soft tissue thickening along Molina's pouch, stable rectal mass and stable LAD, started on cycle number 1 day 1 CAPOX on July 01, 2019. Patient was admitted to [facility] on July 14-2019 for abdominal pain, nausea vomiting likely radiation enteritis versus chemo toxicity from oral Xeloda but less likely immunotherapy related (epacodostat)., Restarted on Epacodostat on July 18, 2019. CT scan of abdomen pelvis done on July 29, 2019 showed dehiscence of Molina's pouch with fistulization to the adjacent small bowel, and increasing small bowel and rectal wall thickening and edema. Patient was admitted to [facility] again on July 29, 2019 through August 07, 2019 for abdominal pain, flex sig done on July 30, 2019 showed partially obstructing ulcerated mass with retained fluid in the Rebecca pouch with the proximal aspect of Rebecca pouch is ulcerated, status post dilatation and transanal drainage. CT scan of abdomen pelvis done on August 20, 2019 showed resolution of pelvic fluid collection with a fistulous tract between Rebecca pouch and pelvic pelvic small bowel loop, improved enteritis, new moderate left hydro and mild right hydronephrosis. On August 30, 2019 underwent flex sig with placement of transanal drainage and bilateral ureteral stents. 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 CT/MRI of abdomen pelvis done on December 02, 2019 showed treatment response, reduction in rectal mass., Treatment with 5-FU alone was given on December 16, 2019 followed by break due to to hospitalization for small bowel obstruction and then scheduled for surgery. And SBO resolved on conservative management and patient was discharged home on TPN. On January 17, 2020 underwent colonoscopy with ascending colon snare polypectomy, exploratory laparotomy, extensive lysis of adhesions, completion proctectomy, takedown of end colostomy with creation of colonic J-pouch and end-to-end anastomosis. Cystoscopy and stent placement by urology team, patient was admitted to [facility] on January 25 2 January 30, 2020 with fever, pain, bloody ostomy, she underwent ileoscopy on January 28, 2020 it was normal and no bleeding was seen Patient was seen by colorectal surgery on February 11, 2020 and recommended to complete 6 months of chemotherapy and then reverse in 3 months following completion of chemotherapy. Patient completed 11 cycles of total chemotherapy on April 06, 2020. And during follow-up on June 12, 2020 she underwent excision of anal lesion, pathology consistent with metastatic adenocarcinoma. No rectovaginal fistula. On June 19, 2020 reexcision of perianal adenocarcinoma with additional margin and pathology positive for adenocarcinoma with clear margin. Patient underwent CT scan of chest abdomen pelvis on July 24, 2020 which showed pericecal nodule worrisome for metastatic disease and fluid collection in the presacral space she was admitted to [facility] from July 20- for possible presacral abscess seen on the scan which was drained and culture came back negative but pathology showed metastatic adenocarcinoma and patient was started on systemic chemotherapy with FOLFIRI, which she tolerated well and her second cycle is due on August 17, 2020, patient is considering switching her care to [facility] because of inconvenience of traveling back and forth to [place]. Denies any specific complaints, no fever chills, no nausea or vomiting, no diarrhea or constipation as per patient after first cycle of chemotherapy with FOLFIRI she developed mouth sores, now improving otherwise tolerated chemotherapy well. Denies any abdominal pain, denies any jaundice denies any fever or chills denies any nausea or vomiting. Medications: Daily Vitamin 1 Tablet Oral daily, Dexamethasone 2 Tablet (of 4 mg) Oral PRN, Lexapro 1 Tablet (of 10 mg) Oral daily, Ondansetron HCl 1 Tablet (of 8 mg) Oral PRN, Pantoprazole Sodium 1 Tablet (of 40 mg) Tablet, enteric coated Oral daily Allergies: pecan nuts, Penicillins, and walnuts. Review of Systems: Review of Systems is not available for this patient. Vital Signs: Performed on Aug 13, 2020 15:09 Height - 69 in Weight - 135 lbs (HIGH) BSA - 1.75 sq.m BMI - 19.94 Temperature - 97.8 F (LOW) Pulse - 70 /min Respiration - 18 /min BP - 123/65 mm(hg) O2 Sat - 99 % Pain - 0 Performance Status: 0 - Fully active, able to carry on all predisease activities without restrictions. (ECOG) Physical Examination: ENMT - No mouth sores, no thrush, no jaundice, Respiratory - Lungs are clear to auscultation, Cardiovascular - Regular rate and rhythm of heart, Abdomen - Soft, bowel sounds present, Extremities - No visible edema. Lab/Imaging: Most recent lab results are not available for this patient. Impression: Recurrent rectal cancer per presacral biopsy done in June 2020 History of stage IIIc, T4 N2 M0 locally advanced rectal adenocarcinoma presenting with perforation diagnosed in early 2019 Status post clinical trial with Epacodostat/capox,, patient developed colitis later on she was switched to FOLFOX on September 09, 2019, oxaliplatin was discontinued after third cycle on October 07, 2019 subsequently continue with 5-FU alone till April 06, 2020, On June 12, 2020 underwent excision of anal lesion which was consistent with metastatic adenocarcinoma and on June 19, 2020 underwent reexcision of perianal adenocarcinoma with clear margin, patient was started on FOLFIRI in the last week of July 19 at [facility] History of DVT Plan: Discussed with patient regarding her disease status and question and concern, patient was recently diagnosed with recurrent adenocarcinoma of the rectum by perianal lesion excision as well as per presacral mass biopsy and patient was started on FOLFIRI at [facility], now patient wants to switch her treatments to [facility] because of inconvenience of traveling back and forth to [place]. Patient is scheduled for second cycle of FOLFIRI on coming Monday and after that she wants to pursue further treatment here. Patient will proceed with her next cycle as scheduled and then will obtain approval from her insurance and after that she will resume her third cycle of FOLFIRI here. Patient return to clinic in 2 weeks with CBC CMP and for further discussion and planning. And we will coordinate her care with [facility] team Signed By: Filemon Hickey M.D. <<Signature on File>>
== END 2020-08-13 13:59 | disposition home or self-care (01) ==
LOC: ONCMED 14:02
PROVIDERS: PCP Family Medicine; Visit Provider Internal Medicine Hematology & Oncology
DX: C20 Malignant neoplasm of rectum (principal); K52.1 Toxic gastroenteritis and colitis; T45.1X5A Adverse effect of antineoplastic and immunosuppressive drugs, initial encounter; Z79.899 Other long term (current) drug therapy
CPT/HCPCS: 99205

== ENCOUNTER 2020-08-24 05:58 | Outpatient (CLI) | payer OTHER, SELFPAY ==
[2020-08-24 08:40] LABS: Basophils % 0.7 %; Eosinophils # 0.4 10^3/uL (0.0-0.8); Eosinophils % 12.7 %; Hematocrit 38.5 % (37.0-47.0); Hemoglobin 11.8 g/dL (11.5-15.3); Lymphocytes % 33.8 %; Mean Corpuscular HGB Conc 30.6 g/dL (30.0-36.0); Mean Corpuscular Hemoglobin 28.3 pg (28.0-34.0); Mean Corpuscular Volume 92.3 fL (81-99); Monocytes # 0.2 10^3/uL (0.2-0.9); Neutrophils # 1.36 10^3/uL (1.8-7.7); Neutrophils % 45.5 %; Nucleated Red Blood Cells % 0 %; Platelet Count 145 10^3/cmm (130-400); Red Blood Count 4.17 10^6/uL (4.1-5.3); Red Cell Distribution Width 18.2 % (12.1-15.1)
[2020-08-24 09:06] LABS: Alanine Aminotransferase 9 U/L (0-33); Albumin Level 4.1 g/dL (3.5-5.2); Alkaline Phosphatase 115 IU/L (35-105); Anion Gap 13.9 (5-19); Aspartate Amino Transferase 14 U/L (0-32); Blood Urea Nitrogen 13 mg/dL (8-23); Calcium 8.4 mg/dL (8.5-10.5); Carbon Dioxide 32 mmol/L (22-29); Chloride 102 mmol/L (98-107); Globulin 2.3 g/dL (1.3-4.6); Glomerular Filtration Rate 85.4 mL/min (90-130); Glucose 61 mg/dL (65-115); Osmolality Calculated 296 mOsm/kg (285-295); Potassium 3.9 mmol/L (3.5-5.1); Sodium 144 mmol/L (136-145); Total Bilirubin 0.3 mg/dL (0.15-1.2); Total Protein 6.4 g/dL (6.6-8.7)
--- NOTE | 2020-08-25 18:03 | ONC FU_ITS ---
Dr. Hickey follow up note Patient: Kathryn Brice Unit #: [id number]: 1960 Dicatated By: Filemon Hickey M.D.Date of Visit:Aug 24, 2020 Onc Med Follow-up/Prog Note History of Present Illness: Ms. Kathryn Brice, is a 60-year-old female, who was admitted to hospital with abdominal pain nausea vomiting and 20 pound weight loss over the period of 3 months on May 05, 2019, and she underwent CT scan of abdomen which showed rectal wall thickening and a mass and CT scan of abdomen done on May 06, 2019 showed sigmoid pneumatosis consistent with perforation and patient underwent flex sigmoidoscopy on May 08, 2019 subsequently diagnostic laparoscopy converted to laparotomy with Molina procedure by Dr. Burch and pathology showed moderately differentiated invasive adenocarcinoma from the rectum mass biopsy, MMR staining retained by IHC, 11 lymph nodes were negative for metastatic disease., On May 14, 2019 follow-up CT scan of abdomen pelvis showed postoperative changes with fluid and edema adjacent from Rebecca pouch consistent with a leak with peritonitis and ileus. Unchanged rectal mass with a perirectal, perisacral, left common iliac and retroperitoneal lymphadenopathy. Fluid drained by interventional radiologist on May 14, 2019 with the drainage catheter removed on May 17, 2019, on May 27, 2019 pelvic MRIs showed 5.5 cm high rectal mass with multiple mesorectal and inferior mesenteric artery lymph nodes e.g. T4, N2,. Postsurgical changes with consistent with dehiscence of Rebecca's pouch, enlarged left common iliac node. On June 07, 2019 CT scan of chest showed 2 1 to 2 cm nodules within lateral basal segment of left lower lobe and and 1.7 x 1.3 right hilar lymph node. Patient initiated on Epacodostat clinical trial with a short course radiation therapy 3500 rad from June 10-2019, CT scan of chest abdomen pelvis done on June 13, 2019 showed resolution of pelvic collection with residual soft tissue thickening along Molina's pouch, stable rectal mass and stable LAD, started on cycle number 1 day 1 CAPOX on July 01, 2019. Patient was admitted to [facility] on July 14-2019 for abdominal pain, nausea vomiting likely radiation enteritis versus chemo toxicity from oral Xeloda but less likely immunotherapy related (epacodostat)., Restarted on Epacodostat on July 18, 2019. CT scan of abdomen pelvis done on July 29, 2019 showed dehiscence of Molina's pouch with fistulization to the adjacent small bowel, and increasing small bowel and rectal wall thickening and edema. Patient was admitted to [facility] again on July 29, 2019 through August 07, 2019 for abdominal pain, flex sig done on July 30, 2019 showed partially obstructing ulcerated mass with retained fluid in the Rebecca pouch with the proximal aspect of Rebecca pouch is ulcerated, status post dilatation and transanal drainage. CT scan of abdomen pelvis done on August 20, 2019 showed resolution of pelvic fluid collection with a fistulous tract between Rebecca pouch and pelvic pelvic small bowel loop, improved enteritis, new moderate left hydro and mild right hydronephrosis. On August 30, 2019 underwent flex sig with placement of transanal drainage and bilateral ureteral stents. 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 CT/MRI of abdomen pelvis done on December 02, 2019 showed treatment response, reduction in rectal mass., Treatment with 5-FU alone was given on December 16, 2019 followed by break due to to hospitalization for small bowel obstruction and then scheduled for surgery. And SBO resolved on conservative management and patient was discharged home on TPN. On January 17, 2020 underwent colonoscopy with ascending colon snare polypectomy, exploratory laparotomy, extensive lysis of adhesions, completion proctectomy, takedown of end colostomy with creation of colonic J-pouch and end-to-end anastomosis. Cystoscopy and stent placement by urology team, patient was admitted to [facility] on January 25 2 January 30, 2020 with fever, pain, bloody ostomy, she underwent ileoscopy on January 28, 2020 it was normal and no bleeding was seen Patient was seen by colorectal surgery on February 11, 2020 and recommended to complete 6 months of chemotherapy and then reverse in 3 months following completion of chemotherapy. Patient completed 11 cycles of total chemotherapy on April 06, 2020. And during follow-up on June 12, 2020 she underwent excision of anal lesion, pathology consistent with metastatic adenocarcinoma. No rectovaginal fistula. On June 19, 2020 reexcision of perianal adenocarcinoma with additional margin and pathology positive for adenocarcinoma with clear margin. Patient underwent CT scan of chest abdomen pelvis on July 24, 2020 which showed pericecal nodule worrisome for metastatic disease and fluid collection in the presacral space she was admitted to [facility] from July 20- for possible presacral abscess seen on the scan which was drained and culture came back negative but pathology showed metastatic adenocarcinoma and patient was started on systemic chemotherapy with FOLFIRI, which she tolerated well and her second cycle was given on August 17, 2020, patient is considering switching her care to [place] because of inconvenience of traveling back and forth to [place] came for Follow-up, denies any specific complaints, no fever chills, no nausea or vomiting, no diarrhea or constipation, no mouth sores,, tolerated second cycle of chemotherapy with FOLFIRI at [facility], now patient is considering taking her third cycle, which is due next week, here in [place] Medications: Daily Vitamin 1 Tablet Oral daily, Dexamethasone 2 Tablet (of 4 mg) Oral PRN, Lexapro 1 Tablet (of 10 mg) Oral daily, Ondansetron HCl 1 Tablet (of 8 mg) Oral PRN Allergies: pecan nuts, Penicillins, and walnuts. Review of Systems: Review of Systems is not available for this patient. Vital Signs: Performed on Aug 24, 2020 09:40 Height - 69.00 in Weight - 136 lbs (HIGH) BSA - 1.75 sq.m BMI - 20.08 Temperature - 97.4 F (LOW) Pulse - 69 /min Respiration - 18 /min BP - 126/77 mm(hg) O2 Sat - 97 % Pain - 0 Fatigue - 5 Performance Status: 1 - No physically strenuous activity, but ambulatory and able to carry out light or sedentary work (e.g. office work, light house work). (ECOG) Physical Examination: ENMT - No mouth sores, no thrush, no jaundice, Respiratory - Lungs are clear to auscultation, Cardiovascular - Regular rate and rhythm of heart, Abdomen - Soft, bowel sounds present, Extremities - No visible edema. Lab/Imaging: Most recent lab results are not available for this patient. Impression: Recurrent rectal cancer per presacral biopsy done in June 2020 History of stage IIIc, T4 N2 M0 locally advanced rectal adenocarcinoma presenting with perforation diagnosed in early 2019 Status post clinical trial with Epacodostat/capox,, patient developed colitis later on she was switched to FOLFOX on September 09, 2019, oxaliplatin was discontinued after third cycle on October 07, 2019 subsequently continue with 5-FU alone till April 06, 2020, On June 12, 2020 underwent excision of anal lesion which was consistent with metastatic adenocarcinoma and on June 19, 2020 underwent reexcision of perianal adenocarcinoma with clear margin, patient was started on FOLFIRI in the last week of July 19 at [facility] History of DVT Plan: Patient regarding her labs white blood count 3 hemoglobin 11.8 hematocrit 38.5 platelets 145,000 CMP within normal limits Clinically, patient is doing well with no new signs symptoms, tolerated second cycle of chemotherapy with FOLFIRI at [facility] given on August 17, 2020, her next dose is due on August 31, 2020, as per patient she is scheduled for follow-up scans at [facility] on September 21, 2020 Patient return to clinic in 1 week with CBC CMP and if blood count looks reasonable, will proceed with cycle #3 with FOLFIRI here Signed By: Filemon Hickey M.D. <<Signature on File>>
== END 2020-08-24 05:59 | disposition home or self-care (01) ==
LOC: ONCMED 06:00
PROVIDERS: PCP Family Medicine; Visit Provider Internal Medicine Hematology & Oncology
DX: C20 Malignant neoplasm of rectum (principal); K52.9 Noninfective gastroenteritis and colitis, unspecified; I82.409 Acute embolism and thrombosis of unspecified deep veins of unspecified lower extremity; Z79.899 Other long term (current) drug therapy
CPT/HCPCS: 36415; 80053; 85025; 99215

== ENCOUNTER 2020-09-16 05:39 | Outpatient (RCR) | payer OTHER, SELFPAY ==
[2020-09-07 08:53] LABS: Eosinophils # 0.1 10^3/uL (0.0-0.8); Eosinophils % 4.1 %; Hematocrit 40.4 % (37.0-47.0); Hemoglobin 12.5 g/dL (11.5-15.3); Lymphocytes # 1.1 10^3/uL (0.8-4.8); Lymphocytes % 34.6 %; Mean Corpuscular HGB Conc 30.9 g/dL (30.0-36.0); Mean Corpuscular Hemoglobin 28.5 pg (28.0-34.0); Mean Corpuscular Volume 92.2 fL (81-99); Mean Platelet Volume 10.9 fL (7.4-10.4); Monocytes # 0.4 10^3/uL (0.2-0.9); Monocytes % 12.1 %; Neutrophils # 1.51 10^3/uL (1.8-7.7); Neutrophils % 47.9 %; Nucleated Red Blood Cells % 0 %; Platelet Count 190 10^3/cmm (130-400); Red Blood Count 4.38 10^6/uL (4.1-5.3); Red Cell Distribution Width 18.8 % (12.1-15.1); White Blood Count 3.2 10^3/uL (4.0-10.0)
[2020-09-07 09:09] LABS: Alanine Aminotransferase 14 U/L (0-33); Albumin Level 4.2 g/dL (3.5-5.2); Alkaline Phosphatase 135 IU/L (35-105); Aspartate Amino Transferase 20 U/L (0-32); Blood Urea Nitrogen 14 mg/dL (8-23); Carbon Dioxide 28 mmol/L (22-29); Chloride 98 mmol/L (98-107); Globulin 2.8 g/dL (1.3-4.6); Glucose 94 mg/dL (65-115); Osmolality Calculated 280 mOsm/kg (285-295); Sodium 135 mmol/L (136-145); Total Bilirubin 0.3 mg/dL (0.15-1.2)
[2020-09-09 12:47] LABS: Basophils # 0.1 10^3/uL (0.0-0.1); Basophils % 0.7 %; Eosinophils # 0.1 10^3/uL (0.0-0.8); Eosinophils % 0.7 %; Hematocrit 41.1 % (37.0-47.0); Hemoglobin 13.2 g/dL (11.5-15.3); Lymphocytes # 1.8 10^3/uL (0.8-4.8); Lymphocytes % 24.5 %; Mean Corpuscular HGB Conc 32.1 g/dL (30.0-36.0); Mean Corpuscular Hemoglobin 29.4 pg (28.0-34.0); Mean Corpuscular Volume 91.5 fL (81-99); Mean Platelet Volume 10.7 fL (7.4-10.4); Monocytes # 0.9 10^3/uL (0.2-0.9); Monocytes % 11.7 %; Neutrophils # 4.54 10^3/uL (1.8-7.7); Nucleated Red Blood Cells % 0 %; Platelet Count 228 10^3/cmm (130-400); Red Blood Count 4.49 10^6/uL (4.1-5.3); Red Cell Distribution Width 19.1 % (12.1-15.1); White Blood Count 7.3 10^3/uL (4.0-10.0)
[2020-09-10] MEDS: sodium chloride 0.9% 250 ML 45 ML IV (12:35)
[2020-09-10] MEDS: atropine 1 mg/mL SDV 1 mL 0.4 MG IV (12:35)
[2020-09-10] MEDS: palonosetron 0.25 mg/5 mL SDV IVP (12:40)
[2020-09-16] MEDS: sodium chloride 0.9% (100 ml) 100 ML 40 ML (12:30)
[2020-09-16] MEDS: famotidine 20 mg/2 mL INJ IVP (12:30)
[2020-09-16] MEDS: ondansetron 2 mg/ML SDV 2 mL 4 MG IV (12:32)
[2020-09-16] MEDS: diphenhydrAMINE 50 mg/mL SDV 1mL 25 MG IV (12:36)
[2020-09-16 12:44] LABS: Basophils % 0.4 %; Eosinophils # 0.1 10^3/uL (0.0-0.8); Eosinophils % 0.6 %; Hematocrit 36.4 % (37.0-47.0); Lymphocytes # 1.3 10^3/uL (0.8-4.8); Lymphocytes % 14.9 %; Mean Corpuscular Hemoglobin 29.9 pg (28.0-34.0); Mean Corpuscular Volume 90.8 fL (81-99); Monocytes # 0.5 10^3/uL (0.2-0.9); Monocytes % 5.8 %; Neutrophils # 6.52 10^3/uL (1.8-7.7); Neutrophils % 77.8 %; Nucleated Red Blood Cells % 0 %; Platelet Count 241 10^3/cmm (130-400); Red Blood Count 4.01 10^6/uL (4.1-5.3); Red Cell Distribution Width 17.9 % (12.1-15.1); White Blood Count 8.4 10^3/uL (4.0-10.0)
[2020-09-16 13:03] LABS: Alanine Aminotransferase 8 U/L (0-33); Albumin Level 3.7 g/dL (3.5-5.2); Alkaline Phosphatase 110 IU/L (35-105); Anion Gap 13.8 (5-19); Aspartate Amino Transferase 11 U/L (0-32); Blood Urea Nitrogen 9 mg/dL (8-23); Calcium 8.4 mg/dL (8.5-10.5); Carbon Dioxide 27 mmol/L (22-29); Chloride 97 mmol/L (98-107); Globulin 3.1 g/dL (1.3-4.6); Glucose 98 mg/dL (65-115); Osmolality Calculated 277 mOsm/kg (285-295); Potassium 3.8 mmol/L (3.5-5.1); Sodium 134 mmol/L (136-145); Total Bilirubin 0.4 mg/dL (0.15-1.2); Total Protein 6.8 g/dL (6.6-8.7)
[2020-09-16] MEDS: LORazepam 2 mg/mL INJ 1 mL 1 MG IV (13:23)
[2020-09-16 14:19] LABS: Urine Appearance Hazy (CLEAR); Urine Color Yellow (Yellow); pH Urine 5 (5-7)
[2020-09-16 14:21] LABS: Add Urine Microscopic? YES; Bilirubin Urine Neg (Negative); Blood Urine Neg (Negative); Glucose Urine UA Norm (Normal); Ketones Urine Negative (Negative); Leukocyte Esterase Urine Negative (Negative); Nitrate Urine Negative (Negative); Protein Urine Neg (Negative); Urobilinogen Urine Norm (Negative)
[2020-09-16 14:22] LABS: Add Urine Culture? No; Bacteria Urine TRACE /hpf; Mucus Urine 1+ /hpf; RBC Urine 0-4 /hpf (0-2); Squamous Epithelial Cell Urine 0-4 /hpf (0-5); Transitional Epi Cells Urine 0-4 /hpf
== END 2020-09-17 15:00 | disposition home or self-care (01) ==
LOC: ONCMED 05:39
PROVIDERS: PCP Family Medicine; Visit Provider Internal Medicine Hematology & Oncology
DX: Z51.11 Encounter for antineoplastic chemotherapy (principal); C20 Malignant neoplasm of rectum; F41.9 Anxiety disorder, unspecified; R11.0 Nausea; Z79.899 Other long term (current) drug therapy
CPT/HCPCS: 36591; 80053; 81001; 85025; 96365; 96367; 96368; 96375; 96411; 96413; 96415; 99214; J0461; J0640; J1100; J1200; J2060; J2405; J2469; J3490; J7050; J9190; J9206

== ENCOUNTER 2020-09-17 15:48 | Emergency (ER) | payer OTHER, SELFPAY ==
[2020-09-17 15:56] VITALS: BP 116/77; PULSE 75; RESP 18; TEMP 36.8; O2SAT 96; BMI 19.5
--- NOTE | 2020-09-17 16:09 | ECG_ITS ---
[facility] Test Date: 2020-09-17 Pat Name: Kathryn Brice Department: Room: Gender: Female Track Greaser: : 1960 Requested By: Maldonado Rapp Order Number: [id number] Lyudmila MD: Charles Junior M.D. Measurements Intervals Sigurd Rate: 64 P: 13 ID: [id number] QRS: 18 QRSD: 84 T: 10 QT: 398 QTc: 412 Interpretive Statements SINUS RHYTHM WITH SHORT ID INTERVAL Some nonspecific T wave changes POSSIBLE RIGHT VENTRICULAR CONDUCTION DELAY [RSR (QR) IN V1/V2] Compared to ECG 04/14/2020 15:06:31 No significant changes Electronically Signed On 09-17-2020 23:49:24 CDT by Charles Junior M.D. [id number]
--- NOTE | 2020-09-17 16:27 | W.ED.NAVMDI ---
HPI - Nausea/Vomiting/Diarrhea General: Chief complaint: Nausea/Vomiting/Diarrhea Stated complaint: ABD PAIN AND VOMITING Time Seen by Provider: 09/17/20 16:08 History of Present Illness: HPI Narrative: 60-year-old female presents emergency room with complaints of abdominal discomfort headache with nausea and vomiting. She finished chemo few days ago has had nausea and vomiting intermittently since twice has had fluid in infusions. She has usual ostomy output. She has not had any hematemesis or coffee-ground emesis she did have a low-grade fever cultures were done evidently at the outpatient clinic and she was started on oral Levaquin. She has a history of DVTs and is on Eliquis. She denies any chest pain denies any dysuria urgency or frequency. I talked with Dr. Hickey he was concerned about possible pancreatitis wanted further testing. Family had mentioned that he had wanted a CT done I talked to him he was not convinced the CT was necessary unless there was some other indication based on the labs. MD elicited complaint: nausea, vomiting and diarrhea Pertinent past history: other (Rectal CA with active treatment.) Onset (ago): day(s) Description of vomiting: food contents and bilious Description of diarrhea: watery and semi-solid Associated nausea: Yes Associated abdominal pain: Yes Location of pain: Diffuse Severity: mild Quality: cramping Exacerbating factors: eating and vomiting Relieving factors: none Associated symtoms: Reports nausea; Denies altered mental status, anxiety, bloating, change in vision, chest pain, cough, diaphoresis, decreased urine output, dizziness, dysuria, epistaxis, fatigue, fecal incontinence, fevers/chills, headache(s), anorexia, malaise, myalgias, numbness or palpitations Review of Systems Const: Denies: fatigue, malaise or diaphoresis Eyes: Denies: change in vision ENMT: Denies: epistaxis Card: Denies: chest pain or palpitations Resp: Denies: dyspnea, productive cough or non-productive cough GI: Reports: nausea; Denies: bloating or fecal incontinence : Denies: dysuria Skin/Breast: Denies: rash or pruritus Neuro: Denies: headache(s) or dizziness Psych: Denies: anxiety PFSH ED PFSH: Medical History 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 Maloney Henri[place] Surgical History H/O colectomy Diverting colostomy placement History of appendectomy History of bilateral tubal ligation History of bladder surgery S/P ureteral stent placement Placed in August 2019 and removed in September 2019 secondary to severe intolerable discomfort. Sounds like metallic stents. Family History Other CAD (coronary artery disease) Denies family history of Diabetes Hyperlipidemia Cancer Hypertension Social History Smoking and tobacco status: former smoker Alcohol intake: current Alcohol intake frequency: holidays/special occasions only Household members: family Housing: House Physical Exam Const: COMMON NORMALS: no acute distress EXAM LIMITATIONS: no altered mental status GENERAL APPEARANCE: cooperative and comfortable ORIENTATION/CONSCIOUSNESS: Yes awake, Yes oriented to person, Yes oriented to place and Yes oriented to time HENMT: COMMON NORMALS: normocephalic, atraumatic and hearing grossly normal bilaterally HEAD & SCALP: normocephalic and atraumatic Neck/C-Spine: COMMON NORMALS: no JVD Resp: COMMON NORMALS: normal respiratory effort, No retractions, No use of accessory muscles and clear to auscultation bilaterally AUSCULTATION: clear to auscultation bilaterally Cardio: COMMON NORMALS: no JVD, regular rate, regular rhythm and No murmurs present (Cardio) RATE: regular rate RHYTHM: regular rhythm GI: COMMON NORMALS: Soft to palpation and No hepatosplenomegaly present AUSCULTATION: Yes normoactive bowel sounds PALPATION: Yes Soft to palpation, No Tenderness to palpation present (GI), No Guarding due to palpation present (GI) and Yes No hepatosplenomegaly present Extremity: COMMON NORMALS: normal to inspection, capillary refill normal, no clubbing, cyanosis or edema, no calf tenderness and no pedal edema Neuro: SENSORIUM/ORIENTATION: Yes oriented to person, Yes oriented to place and Yes oriented to time Skin: COMMON NORMALS: no rashes or lesions noted GENERAL SKIN EXAM: no rashes or lesions noted Course Vital Signs: Vital signs: Vital Signs Temperature 98.2 F 09/17/20 15:56 Pulse Rate 78 09/17/20 19:18 Respiratory Rate 18 09/17/20 19:18 Blood Pressure 113/76 09/17/20 19:18 Pulse Oximetry 97 09/17/20 19:18 MDM - Nausea/Vomiting/Diarrhea MDM Narrative: Medical decision making narrative: Patient is feeling better. Discussed with Dr. Hickey. She has good bowel sounds and her abdomen is nonspecifically tender she still has good output her labs are for the most part unremarkable. We will change her to promethazine and Ativan to use as needed follow-up with Lab Data: Labs: Lab Results 09/17/20 09/17/20 09/17/20 Range/Units 16:50 16:50 16:50 WBC 10.6 H (4.0-10.0) 10^3/ uL RBC 3.98 L (4.1-5.3) 10^6/u L Hgb 11.6 (11.5-15.3) g/dL Hct 36.2 L (37.0-47.0) % MCV 91.0 (81-99) fL MCH 29.1 (28.0-34.0) pg MCHC 32.0 (30.0-36.0) g/dL RDW 17.7 H (12.1-15.1) % Plt Count 270 (130-400) 10^3/c mm MPV 9.4 (7.4-10.4) fL Neut % (Auto) 82.0 % Lymph % (Auto) 11.0 % Daniels % (Auto) 6.0 % Eos % (Auto) 0.1 % Baso % (Auto) 0.2 % Neut # (Auto) 8.68 H (1.8-7.7) 10^3/u L Lymph # (Auto) 1.2 (0.8-4.8) 10^3/u L Daniels # (Auto) 0.6 (0.2-0.9) 10^3/u L Eos # (Auto) 0.0 (0.0-0.8) 10^3/u L Baso # (Auto) 0.0 (0.0-0.1) 10^3/u L Nucleated RBC % (a uto) 0 % Nucleated RBCs # 0.0 /100WBC Sodium 141 (136-145) mmol/L Potassium 4.1 (3.5-5.1) mmol/L Chloride 102 (98-107) mmol/L Carbon Dioxide 27 (22-29) mmol/L Anion Gap 16.1 (5-19) BUN 16 (8-23) mg/dL Creatinine 0.7 (0.5-0.9) mg/dL GFR Calculation 85.4 L (90-130) mL/min Glucose 93 (65-115) mg/dL Calculated Osmolal ity 293 (285-295) mOsm/k g Lactic Acid Cancelled Calcium 8.6 (8.5-10.5) mg/dL Total Bilirubin 0.2 (0.15-1.2) mg/dL AST 19 (0-32) U/L ALT 16 (0-33) U/L Alkaline Phosphata se 111 H (35-105) IU/L Total Protein 6.8 (6.6-8.7) g/dL Albumin 3.6 (3.5-5.2) g/dL Globulin 3.2 (1.3-4.6) g/dL Lipase 51 (13-60) U/L Urine Color (Yellow) Urine Appearance (CLEAR) Urine pH (5-7) Ur Specific Gravit y (1.005-1.030) Urine Protein (Negative) Urine Glucose (UA) (Normal) Urine Ketones (Negative) Urine Blood (Negative) Urine Nitrate (Negative) Urine Bilirubin (Negative) Urine Urobilinogen (Negative) mg/dL Ur Leukocyte Crystal ase (Negative) Serum Ketones (Negative) 09/17/20 09/17/20 Range/Units 16:50 16:50 WBC (4.0-10.0) 10^3/ uL RBC (4.1-5.3) 10^6/u L Hgb (11.5-15.3) g/dL Hct (37.0-47.0) % MCV (81-99) fL MCH (28.0-34.0) pg MCHC (30.0-36.0) g/dL RDW (12.1-15.1) % Plt Count (130-400) 10^3/c mm MPV (7.4-10.4) fL Neut % (Auto) % Lymph % (Auto) % Daniels % (Auto) % Eos % (Auto) % Baso % (Auto) % Neut # (Auto) (1.8-7.7) 10^3/u L Lymph # (Auto) (0.8-4.8) 10^3/u L Daniels # (Auto) (0.2-0.9) 10^3/u L Eos # (Auto) (0.0-0.8) 10^3/u L Baso # (Auto) (0.0-0.1) 10^3/u L Nucleated RBC % (a uto) % Nucleated RBCs # /100WBC Sodium (136-145) mmol/L Potassium (3.5-5.1) mmol/L Chloride (98-107) mmol/L Carbon Dioxide (22-29) mmol/L Anion Gap (5-19) BUN (8-23) mg/dL Creatinine (0.5-0.9) mg/dL GFR Calculation (90-130) mL/min Glucose (65-115) mg/dL Calculated Osmolal ity (285-295) mOsm/k g Lactic Acid Calcium (8.5-10.5) mg/dL Total Bilirubin (0.15-1.2) mg/dL AST (0-32) U/L ALT (0-33) U/L Alkaline Phosphata se (35-105) IU/L Total Protein (6.6-8.7) g/dL Albumin (3.5-5.2) g/dL Globulin (1.3-4.6) g/dL Lipase (13-60) U/L Urine Color Yellow (Yellow) Urine Appearance Clear (CLEAR) Urine pH 5 (5-7) Ur Specific Gravit y 1.015 (1.005-1.030) Urine Protein Neg (Negative) Urine Glucose (UA) Norm (Normal) Urine Ketones Negative (Negative) Urine Blood Neg (Negative) Urine Nitrate Negative (Negative) Urine Bilirubin Neg (Negative) Urine Urobilinogen Norm (Negative) mg/dL Ur Leukocyte Crystal ase Negative (Negative) Serum Ketones Negative (Negative) Discharge Plan Discharge Patient Disposition: Home Clinical Impression: Rectal cancer, Nausea & vomiting Condition: Stable Prescriptions: New promethazine 25 mg tablet 25 mg PO Q6H PRN (Reason: nausea and vomiting) Qty: 20 RF: 0 Ativan 2 mg tablet 2 mg PO QID PRN (Reason: nausea and vomiting) Qty: 14 RF: 0 No Action loperamide 2 mg Tablet 4 mg PO BID RF: 0 dexamethasone 4 mg tablet See Rx Instructions .ROUTE .COMPLEX RF: 0 oxycodone 10 mg tablet 10 mg PO Q4H PRN (Reason: Pain) RF: 0 multivitamin Tablet 1 tab PO DAILY@07 RF: 0 ondansetron 8 mg tablet,disintegrating 8 mg PO Q6H PRN (Reason: Nausea And Vomiting) RF: 0 ibuprofen 200 mg Tablet 800 mg PO TID PRN (Reason: Pain) RF: 0 Levaquin 500 mg Tablet 500 mg PO DAILY RF: 0 Excedrin Migraine 250-250-65 mg Tablet 2 tab PO PRN RF: 0 Proferrin ES 1 tab PO DAILY@07 RF: 0 escitalopram oxalate 10 mg tablet 10 mg PO DAILY@07 RF: 0 prochlorperazine maleate [Compazine] 10 mg Tablet 10 mg PO Q6H PRN (Reason: Nausea) RF: 0 Discharge Orders: Discharge ED (Routine); Ordered 09/17/20 Ordered By: Maldonado Johnson Referrals: Ciera Jeff MD [Primary Care Provider] - Discharge Diet: Clear Liquid Discharge Activity: Increase activity as tolerated Patient Instructions: Opioid Safety Activity Restrictions/Additional Instructions: Follow-up with oncology next week. Use promethazine or Ativan as needed for nausea and vomiting clear liquid diet for 24 to 48 hours Coding Level of Care Code ED Paint Booth Operator for Michael Lilly
[2020-09-17 17:01] LABS: Add Urine Microscopic? NO; Charge for UA Resulting for Rev
[2020-09-17] MEDS: ondansetron 2 mg/ML SDV 2 mL 4 MG IVP (17:02)
[2020-09-17] MEDS: sodium chloride 0.9% 1,000 ML 999 ML IV ×3 (17:02)
[2020-09-17 17:04] LABS: Basophils % 0.2 %; Eosinophils % 0.1 %; Hematocrit 36.2 % (37.0-47.0); Hemoglobin 11.6 g/dL (11.5-15.3); Lymphocytes # 1.2 10^3/uL (0.8-4.8); Mean Corpuscular Hemoglobin 29.1 pg (28.0-34.0); Mean Platelet Volume 9.4 fL (7.4-10.4); Monocytes # 0.6 10^3/uL (0.2-0.9); Neutrophils # 8.68 10^3/uL (1.8-7.7); Nucleated Red Blood Cells % 0 %; Platelet Count 270 10^3/cmm (130-400); Red Blood Count 3.98 10^6/uL (4.1-5.3); Red Cell Distribution Width 17.7 % (12.1-15.1); White Blood Count 10.6 10^3/uL (4.0-10.0)
[2020-09-17 17:25] LABS: Ketone (Acetest) Serum Negative (Negative)
[2020-09-17 17:34] LABS: Alanine Aminotransferase 16 U/L (0-33); Albumin Level 3.6 g/dL (3.5-5.2); Alkaline Phosphatase 111 IU/L (35-105); Anion Gap 16.1 (5-19); Aspartate Amino Transferase 19 U/L (0-32); Blood Urea Nitrogen 16 mg/dL (8-23); Calcium 8.6 mg/dL (8.5-10.5); Carbon Dioxide 27 mmol/L (22-29); Chloride 102 mmol/L (98-107); Globulin 3.2 g/dL (1.3-4.6); Glomerular Filtration Rate 85.4 mL/min (90-130); Glucose 93 mg/dL (65-115); Lipase 51 U/L (13-60); Osmolality Calculated 293 mOsm/kg (285-295); Potassium 4.1 mmol/L (3.5-5.1); Sodium 141 mmol/L (136-145); Total Bilirubin 0.2 mg/dL (0.15-1.2); Total Protein 6.8 g/dL (6.6-8.7)
[2020-09-17 17:39] LABS: Bilirubin Urine Neg (Negative); Blood Urine Neg (Negative); Glucose Urine UA Norm (Normal); Ketones Urine Negative (Negative); Leukocyte Esterase Urine Negative (Negative); Nitrate Urine Negative (Negative); Protein Urine Neg (Negative); Specific Gravity, Urine 1.015 (1.005-1.030); Urine Appearance Clear (CLEAR); Urine Color Yellow (Yellow); Urobilinogen Urine Norm (Negative); pH Urine 5 (5-7)
[2020-09-17 17:54] VITALS: RESP 15
[2020-09-17 18:40] VITALS: RESP 15
[2020-09-17 19:18] VITALS: BP 113/76; PULSE 78; RESP 18; O2SAT 97
== END 2020-09-17 19:26 | disposition home or self-care (01) ==
PROVIDERS: Emergency Provider Family Medicine; PCP Family Medicine
DX: R11.2 Nausea with vomiting, unspecified (principal); C20 Malignant neoplasm of rectum; Z87.891 Personal history of nicotine dependence; Z93.3 Colostomy status
CPT/HCPCS: 80053; 81003; 82009; 83690; 85025; 93005; 96361; 96374; 96375; 99284; J1642; J2405; J7030

== ENCOUNTER 2020-09-24 05:36 | Outpatient (RCR) | payer OTHER, SELFPAY ==
--- NOTE | 2020-09-18 11:52 | ONC FU_ITS ---
Dr. Hickey follow up note Patient: Kathryn Brice Unit #: [id number]: [id number] Dicatated By: Filemon Hickey M.D.Date of Visit:September 18, 2020 Onc Med Follow-up/Prog Note History of Present Illness: Ms. Kathryn Brice, is a 60-year-old female, who was admitted to hospital with abdominal pain nausea vomiting and 20 pound weight loss over the period of 3 months on May 05, 2019, and she underwent CT scan of abdomen which showed rectal wall thickening and a mass and CT scan of abdomen done on May 06, 2019 showed sigmoid pneumatosis consistent with perforation and patient underwent flex sigmoidoscopy on May 08, 2019 subsequently diagnostic laparoscopy converted to laparotomy with Molina procedure by Dr. Burch and pathology showed moderately differentiated invasive adenocarcinoma from the rectum mass biopsy, MMR staining retained by IHC, 11 lymph nodes were negative for metastatic disease., On May 14, 2019 follow-up CT scan of abdomen pelvis showed postoperative changes with fluid and edema adjacent from Rebecca pouch consistent with a leak with peritonitis and ileus. Unchanged rectal mass with a perirectal, perisacral, left common iliac and retroperitoneal lymphadenopathy. Fluid drained by interventional radiologist on May 14, 2019 with the drainage catheter removed on May 17, 2019, on May 27, 2019 pelvic MRIs showed 5.5 cm high rectal mass with multiple mesorectal and inferior mesenteric artery lymph nodes e.g. T4, N2,. Postsurgical changes with consistent with dehiscence of Rebecca's pouch, enlarged left common iliac node. On June 07, 2019 CT scan of chest showed 2 1 to 2 cm nodules within lateral basal segment of left lower lobe and and 1.7 x 1.3 right hilar lymph node. Patient initiated on Epacodostat clinical trial with a short course radiation therapy 3500 rad from June 10-2019, CT scan of chest abdomen pelvis done on June 13, 2019 showed resolution of pelvic collection with residual soft tissue thickening along Molina's pouch, stable rectal mass and stable LAD, started on cycle number 1 day 1 CAPOX on July 01, 2019. Patient was admitted to [facility] on July 14-2019 for abdominal pain, nausea vomiting likely radiation enteritis versus chemo toxicity from oral Xeloda but less likely immunotherapy related (epacodostat)., Restarted on Epacodostat on July 18, 2019. CT scan of abdomen pelvis done on July 29, 2019 showed dehiscence of Molina's pouch with fistulization to the adjacent small bowel, and increasing small bowel and rectal wall thickening and edema. Patient was admitted to [facility] again on July 29, 2019 through August 07, 2019 for abdominal pain, flex sig done on July 30, 2019 showed partially obstructing ulcerated mass with retained fluid in the Rebecca pouch with the proximal aspect of Rebecca pouch is ulcerated, status post dilatation and transanal drainage. CT scan of abdomen pelvis done on August 20, 2019 showed resolution of pelvic fluid collection with a fistulous tract between Rebecca pouch and pelvic pelvic small bowel loop, improved enteritis, new moderate left hydro and mild right hydronephrosis. On August 30, 2019 underwent flex sig with placement of transanal drainage and bilateral ureteral stents. 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 CT/MRI of abdomen pelvis done on December 02, 2019 showed treatment response, reduction in rectal mass., Treatment with 5-FU alone was given on December 16, 2019 followed by break due to to hospitalization for small bowel obstruction and then scheduled for surgery. And SBO resolved on conservative management and patient was discharged home on TPN. On January 17, 2020 underwent colonoscopy with ascending colon snare polypectomy, exploratory laparotomy, extensive lysis of adhesions, completion proctectomy, takedown of end colostomy with creation of colonic J-pouch and end-to-end anastomosis. Cystoscopy and stent placement by urology team, patient was admitted to [facility] on January 25 2 January 30, 2020 with fever, pain, bloody ostomy, she underwent ileoscopy on January 28, 2020 it was normal and no bleeding was seen Patient was seen by colorectal surgery on February 11, 2020 and recommended to complete 6 months of chemotherapy and then reverse in 3 months following completion of chemotherapy. Patient completed 11 cycles of total chemotherapy on April 06, 2020. And during follow-up on June 12, 2020 she underwent excision of anal lesion, pathology consistent with metastatic adenocarcinoma. No rectovaginal fistula. On June 19, 2020 reexcision of perianal adenocarcinoma with additional margin and pathology positive for adenocarcinoma with clear margin. Patient underwent CT scan of chest abdomen pelvis on July 24, 2020 which showed pericecal nodule worrisome for metastatic disease and fluid collection in the presacral space she was admitted to [facility] from July 20- for possible presacral abscess seen on the scan which was drained and culture came back negative but pathology showed metastatic adenocarcinoma and patient was started on systemic chemotherapy with FOLFIRI, which she tolerated well and her second cycle was given on August 17, 2020, patient is considering switching her care to [facility] because of inconvenience of traveling back and forth to [place] Started with third cycle of FOLFIRI here in [facility] on 09/10/2020 Came for follow-up, denies any specific complaints, no fever chills, no nausea or vomiting, no diarrhea or constipation, no abdominal pain, no mouth sores, no skin rash. Patient went [place] [facility] [place] 09/17/2020 with abdominal pain, nausea vomiting, lab work-up including urine analysis showed no abnormality, amylase was within normal range. Patient treated symptomatically and improved. As per patient, she stayed dehydrated all the time so she drink lots of water and her nausea vomiting started when she was working her yard, she thinks that she may have overdone it. She also has history of migraine headaches.Patient tolerated her third cycle of FOLFIRI given on 09/10/2020 Medications: Daily Vitamin 1 Tablet Oral daily, Dexamethasone 2 Tablet (of 4 mg) Oral PRN, Lexapro 1 Tablet (of 10 mg) Oral daily, Ondansetron HCl 1 Tablet (of 8 mg) Oral PRN Allergies: pecan nuts, Penicillins, and walnuts. Review of Systems: Review of Systems is not available for this patient. Vital Signs: Vitals are not available for this patient. Performance Status: 0 - Fully active, able to carry on all predisease activities without restrictions. (ECOG) Physical Examination: ENMT - No mouth sores, no thrush, no jaundice, Respiratory - Lungs are clear to auscultation, Cardiovascular - Regular rate and rhythm of heart, Abdomen - Soft, bowel sounds present, Extremities - No visible edema. Lab/Imaging: Most recent lab results are not available for this patient. Impression: Recurrent rectal cancer per presacral biopsy done in June 2020 History of stage IIIc, T4 N2 M0 locally advanced rectal adenocarcinoma presenting with perforation diagnosed in early 2019 Status post clinical trial with Epacodostat/capox,, patient developed colitis later on she was switched to FOLFOX on September 09, 2019, oxaliplatin was discontinued after third cycle on October 07, 2019 subsequently continue with 5-FU alone till April 06, 2020, On June 12, 2020 underwent excision of anal lesion which was consistent with metastatic adenocarcinoma and on June 19, 2020 underwent reexcision of perianal adenocarcinoma with clear margin, patient was started on FOLFIRI in the last week of July 19 at [facility] History of DVT Plan: Discussed with patient regarding her concern and question about recent episode of nausea and abdominal pain, etiology remains unclear, patient did spike fever 1 time she was given a course of antibiotic recently but no more fever chills, no burning micturition. Patient went to [facility] [place] because of abdominal pain and nausea vomiting and there was a concern for possible pancreatitis but amylase was normal patient was treated symptomatically and improved, she was also having some headaches which has resolved now., Etiology of her nausea could be multifactorial including excessive water intake, patient was advised to be careful and also give her prescription for lorazepam 0.25 mg p.o. every 8 hours as needed for anxiety/nausea patient return to clinic on 09/24/2020 for cycle #4 with FOLFIRI and patient will go to [facility] for follow-up with scans in first week of September 2020 Signed By: Filemon Hickey M.D. <<Signature on File>>
[2020-09-24 11:16] LABS: Basophils % 0.6 %; Eosinophils # 0.1 10^3/uL (0.0-0.8); Eosinophils % 1.7 %; Hematocrit 35.5 % (37.0-47.0); Lymphocytes % 22.1 %; Mean Corpuscular Hemoglobin 28.9 pg (28.0-34.0); Mean Corpuscular Volume 93.2 fL (81-99); Mean Platelet Volume 9.2 fL (7.4-10.4); Monocytes # 0.3 10^3/uL (0.2-0.9); Monocytes % 6.6 %; Neutrophils # 3.21 10^3/uL (1.8-7.7); Neutrophils % 68.4 %; Nucleated Red Blood Cells % 0 %; Platelet Count 248 10^3/cmm (130-400); Red Blood Count 3.81 10^6/uL (4.1-5.3); Red Cell Distribution Width 17.6 % (12.1-15.1); White Blood Count 4.7 10^3/uL (4.0-10.0)
[2020-09-24 11:37] LABS: Alanine Aminotransferase 17 U/L (0-33); Albumin Level 3.7 g/dL (3.5-5.2); Alkaline Phosphatase 107 IU/L (35-105); Anion Gap 13.3 (5-19); Aspartate Amino Transferase 16 U/L (0-32); Blood Urea Nitrogen 14 mg/dL (8-23); Calcium 8.8 mg/dL (8.5-10.5); Carbon Dioxide 30 mmol/L (22-29); Chloride 102 mmol/L (98-107); Globulin 2.5 g/dL (1.3-4.6); Glucose 88 mg/dL (65-115); Osmolality Calculated 292 mOsm/kg (285-295); Potassium 4.3 mmol/L (3.5-5.1); Sodium 141 mmol/L (136-145); Total Bilirubin 0.2 mg/dL (0.15-1.2); Total Protein 6.2 g/dL (6.6-8.7)
[2020-09-24] MEDS: sodium chloride 0.9% 500 ML IV (13:15)
[2020-09-24] MEDS: atropine 1 mg/mL SDV 1 mL 0.4 MG IVP (13:30)
[2020-09-24] MEDS: palonosetron 0.25 mg/5 mL SDV IVP (13:34)
== END 2020-09-28 23:59 | disposition home or self-care (01) ==
LOC: ONCMED 05:36
PROVIDERS: PCP Family Medicine; Visit Provider Internal Medicine Hematology & Oncology
DX: Z51.11 Encounter for antineoplastic chemotherapy (principal); C20 Malignant neoplasm of rectum; F41.9 Anxiety disorder, unspecified; R11.0 Nausea; Z79.899 Other long term (current) drug therapy
CPT/HCPCS: 80053; 85025; 96367; 96368; 96375; 96411; 96413; 99214; J0461; J0640; J1100; J2469; J7040; J9190; J9206

== ENCOUNTER 2020-10-22 05:35 | Outpatient (RCR) | payer OTHER, SELFPAY ==
[2020-10-08 11:53] LABS: Basophils # 0.1 10^3/uL (0.0-0.1); Basophils % 0.8 %; Eosinophils # 0.2 10^3/uL (0.0-0.8); Eosinophils % 2.4 %; Lymphocytes # 1.3 10^3/uL (0.8-4.8); Lymphocytes % 20.1 %; Mean Corpuscular HGB Conc 31.6 g/dL (30.0-36.0); Mean Corpuscular Hemoglobin 29.4 pg (28.0-34.0); Mean Corpuscular Volume 93.1 fL (81-99); Mean Platelet Volume 9.9 fL (7.4-10.4); Monocytes # 0.5 10^3/uL (0.2-0.9); Monocytes % 8.5 %; Neutrophils # 4.34 10^3/uL (1.8-7.7); Neutrophils % 67.9 %; Nucleated Red Blood Cells % 0 %; Platelet Count 173 10^3/cmm (130-400); Red Blood Count 4.08 10^6/uL (4.1-5.3); Red Cell Distribution Width 18.4 % (12.1-15.1); White Blood Count 6.4 10^3/uL (4.0-10.0)
[2020-10-08 12:38] LABS: Alanine Aminotransferase 12 U/L (0-33); Albumin Level 3.9 g/dL (3.5-5.2); Alkaline Phosphatase 112 IU/L (35-105); Anion Gap 15.9 (5-19); Aspartate Amino Transferase 17 U/L (0-32); Blood Urea Nitrogen 12 mg/dL (8-23); Calcium 8.4 mg/dL (8.5-10.5); Carbon Dioxide 26 mmol/L (22-29); Chloride 101 mmol/L (98-107); Globulin 2.5 g/dL (1.3-4.6); Glucose 84 mg/dL (65-115); Osmolality Calculated 287 mOsm/kg (285-295); Potassium 3.9 mmol/L (3.5-5.1); Sodium 139 mmol/L (136-145); Total Bilirubin 0.2 mg/dL (0.15-1.2); Total Protein 6.4 g/dL (6.6-8.7)
[2020-10-08] MEDS: ondansetron 2 mg/ML SDV 2 mL 8 MG IVP (13:50)
[2020-10-08] MEDS: sodium chloride 0.9% 250 ML 75 ML IV (13:55)
[2020-10-08] MEDS: famotidine 20 mg/2 mL INJ IVP (13:55)
[2020-10-08] MEDS: atropine 1 mg/mL SDV 1 mL 0.4 MG IV (13:58)
[2020-10-15 14:48] LABS: Basophils % 0.9 %; Eosinophils # 0.4 10^3/uL (0.0-0.8); Eosinophils % 9.4 %; Hematocrit 37.8 % (37.0-47.0); Lymphocytes % 24.2 %; Mean Corpuscular HGB Conc 31.7 g/dL (30.0-36.0); Mean Corpuscular Hemoglobin 30.1 pg (28.0-34.0); Mean Corpuscular Volume 94.7 fL (81-99); Mean Platelet Volume 10.2 fL (7.4-10.4); Monocytes # 0.3 10^3/uL (0.2-0.9); Neutrophils # 2.43 10^3/uL (1.8-7.7); Nucleated Red Blood Cells % 0 %; Platelet Count 237 10^3/cmm (130-400); Red Blood Count 3.99 10^6/uL (4.1-5.3); Red Cell Distribution Width 17.3 % (12.1-15.1); White Blood Count 4.3 10^3/uL (4.0-10.0)
[2020-10-15 15:04] LABS: Alanine Aminotransferase 11 U/L (0-33); Albumin Level 4.1 g/dL (3.5-5.2); Alkaline Phosphatase 113 IU/L (35-105); Anion Gap 14.7 (5-19); Aspartate Amino Transferase 17 U/L (0-32); Blood Urea Nitrogen 15 mg/dL (8-23); Calcium 8.8 mg/dL (8.5-10.5); Carbon Dioxide 30 mmol/L (22-29); Chloride 100 mmol/L (98-107); Globulin 2.5 g/dL (1.3-4.6); Glucose 125 mg/dL (65-115); Osmolality Calculated 294 mOsm/kg (285-295); Potassium 3.7 mmol/L (3.5-5.1); Sodium 141 mmol/L (136-145); Total Bilirubin 0.2 mg/dL (0.15-1.2); Total Protein 6.6 g/dL (6.6-8.7)
--- NOTE | 2020-10-21 08:57 | MR_ITS ---
WS: [id number] MRI BRAIN WITH AND WITHOUT CONTRAST HISTORY: PERSISTENT headache, vomiting, metastatic COLORECTAL CA COMPARISON: CT head 12/29/2019 TECHNIQUE: Multiplanar imaging performed through the brain with MultiHance 15 ml's IV. No acute infarcts are seen. [place]-white matter differentiation is well preserved. Focus of increased T 2 signal in the LEFT basal ganglia which does not enhance. There is a central area of increased T2 si gnal in the angelica which also does not enhance. No susceptibility artifacts or prior lacunar infarcts. Ventricles and extra-axial spaces are normal. Clivus and pituitary gland are normal. Visualized posterior fossa and brainstem are also normal. Postcontrast images are negative for masses or vascular malformations. Small arachnoid granulations in the transverse sinuses. No thrombosis. Paranasal sinuses: Well aerated with no significant disease. Mastoid air cells: Normal. Calvarium and scalp: Normal. MR/MR head wo/w con [id number] IMPRESSION: 1. No evidence for metastatic disease to the brain. 2. 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 3. No significant chronic white matter disease.
[2020-10-21] MEDS: gadobenate dimeglumine 20 mL vial IV (11:22)
[2020-10-22 12:32] LABS: Alanine Aminotransferase 10 U/L (0-33); Albumin Level 4.1 g/dL (3.5-5.2); Alkaline Phosphatase 100 IU/L (35-105); Anion Gap 13.2 (5-19); Aspartate Amino Transferase 18 U/L (0-32); Blood Urea Nitrogen 16 mg/dL (8-23); Carbon Dioxide 30 mmol/L (22-29); Chloride 100 mmol/L (98-107); Glomerular Filtration Rate 85.4 mL/min (90-130); Glucose 71 mg/dL (65-115); Osmolality Calculated 288 mOsm/kg (285-295); Potassium 4.2 mmol/L (3.5-5.1); Sodium 139 mmol/L (136-145); Total Bilirubin 0.2 mg/dL (0.15-1.2); Total Protein 6.1 g/dL (6.6-8.7)
[2020-10-22] MEDS: sodium chloride 0.9% 250 ML 75 ML IV (12:40)
[2020-10-22] MEDS: famotidine 20 mg/2 mL INJ IVP (12:40)
[2020-10-22] MEDS: ondansetron 2 mg/ML SDV 2 mL 8 MG IVP (12:42)
[2020-10-22 13:00] LABS: Basophils % 0.8 %; Eosinophils # 0.4 10^3/uL (0.0-0.8); Eosinophils % 7.8 %; Hematocrit 35.8 % (37.0-47.0); Hemoglobin 11.1 g/dL (11.5-15.3); Lymphocytes # 1.2 10^3/uL (0.8-4.8); Lymphocytes % 21.8 %; Mean Corpuscular Hemoglobin 29.9 pg (28.0-34.0); Mean Corpuscular Volume 96.5 fL (81-99); Mean Platelet Volume 9.9 fL (7.4-10.4); Monocytes # 0.5 10^3/uL (0.2-0.9); Monocytes % 8.5 %; Neutrophils # 3.21 10^3/uL (1.8-7.7); Neutrophils % 60.7 %; Nucleated Red Blood Cells % 0 %; Platelet Count 191 10^3/cmm (130-400); Red Blood Count 3.71 10^6/uL (4.1-5.3); White Blood Count 5.3 10^3/uL (4.0-10.0)
[2020-10-22] MEDS: atropine 1 mg/mL SDV 1 mL 0.4 MG IV (13:30)
--- NOTE | 2020-10-29 20:54 | ONC FU_ITS ---
[facility] Patient Note Patient: Kathryn Brice Unit #: [id number]: [id number] Dictated By: Shreya GrantDate of Visit: Oct 08, 2020 Onc MED Follow-Up/Prog Note Chief Complaint: Recurrent rectal adenocarcinoma History of Present Illness: Ms. Brice is a 60-year-old female who was admitted to hospital with abdominal pain, nausea/vomiting and s 20 pound weight loss over the period of 3 months on May 05, 2019. She underwent CT scan of abdomen which showed rectal wall thickening and a mass. A CT scan of abdomen done on May 06, 2019 showed sigmoid pneumatosis consistent with perforation. Ms. Brice underwent flex sigmoidoscopy on May 08, 2019 subsequently diagnostic laparoscopy converted to laparotomy with Molina procedure by Dr. Burch. The pathology showed moderately differentiated invasive adenocarcinoma from the rectal mass biopsy. MMR staining retained by IHC, 11 lymph nodes were negative for metatatic disease. On May 14, 2019 follow-up CT scan of abdomen pelvis showed postoperative changes with fluid and edema adjacent from Rebecca pouch consistent with a leak with peritonitis and ileus. Unchanged rectal mass with a perirectal, perisacral, left common iliac and retroperitoneal lymphadenopathy. Fluid drained by interventional radiologist on May 14, 2019 with the drainage catheter removed on May 17, 2019. On May 27, 2019, pelvic MRIs showed 5.5 cm high rectal mass with multiple mesorectal and inferior mesenteric artery lymph nodes e.g. T4, N2. Postsurgical changes with consistent with dehiscence of Rebecca's pouch, enlarged left common iliac node. On June 07, 2019 CT scan of chest showed 2 1 to 2 cm nodules within lateral basal segment of left lower lobe and and 1.7 x 1.3 right hilar lymph node. Ms Brice was placed on the Epacodostat clinical trial with a short course radiation therapy 3500 rad from June 10-2019. A CT scan of chest abdomen pelvis done on June 13, 2019 showed resolution of pelvic collection with residual soft tissue thickening along Molina's pouch, stable rectal mass and stable LAD. She was started on cycle 1 day 1 CAPOX on July 01, 2019. Patient was admitted to [facility] on July 14-2019 for abdominal pain, nausea vomiting likely radiation enteritis versus chemo toxicity from oral Xeloda but less likely immunotherapy related (epacodostat). She was restarted on Epacodostat on July 18, 2019. CT scan of abdomen pelvis done on July 29, 2019 showed dehiscence of Molina's pouch with fistulization to the adjacent small bowel, and increasing small bowel and rectal wall thickening and edema. Patient was admitted to [facility] again on July 29, 2019 through August 07, 2019 for abdominal pain, flex sig done on July 30, 2019 showed partially obstructing ulcerated mass with retained fluid in the Rebecca pouch with the proximal aspect of Rebecca pouch is ulcerated, status post dilatation and transanal drainage. CT scan of abdomen pelvis done on August 20, 2019 showed resolution of pelvic fluid collection with a fistulous tract between Rebecca pouch and pelvic pelvic small bowel loop, improved enteritis, new moderate left hydro and mild right hydronephrosis. On August 30, 2019 underwent flex sig with placement of transanal drainage and bilateral ureteral stents. 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 CT/MRI of abdomen pelvis done on December 02, 2019 showed treatment response, reduction in rectal mass., Treatment with 5-FU alone was given on December 16, 2019 followed by break due to to hospitalization for small bowel obstruction and then scheduled for surgery. And SBO resolved on conservative management and patient was discharged home on TPN. On January 17, 2020 underwent colonoscopy with ascending colon snare polypectomy, exploratory laparotomy, extensive lysis of adhesions, completion proctectomy, takedown of end colostomy with creation of colonic J-pouch and end-to-end anastomosis. Cystoscopy and stent placement by urology team, patient was admitted to [facility] on January 25 2 January 30, 2020 with fever, pain, bloody ostomy, she underwent ileoscopy on January 28, 2020 it was normal and no bleeding was seen Patient was seen by colorectal surgery on February 11, 2020 and recommended to complete 6 months of chemotherapy and then reverse in 3 months following completion of chemotherapy. Patient completed 11 cycles of total chemotherapy on April 06, 2020. And during follow-up on June 12, 2020 she underwent excision of anal lesion, pathology consistent with metastatic adenocarcinoma. No rectovaginal fistula. On June 19, 2020 reexcision of perianal adenocarcinoma with additional margin and pathology positive for adenocarcinoma with clear margin. Patient underwent CT scan of chest abdomen pelvis on July 24, 2020 which showed pericecal nodule worrisome for metastatic disease and fluid collection in the presacral space she was admitted to [facility] from July 20- for possible presacral abscess seen on the scan which was drained and culture came back negative but pathology showed metastatic adenocarcinoma and patient was started on systemic chemotherapy with FOLFIRI, which she tolerated well and her second cycle was given on August 17, 2020, patient is considering switching her care to [place] because of inconvenience of traveling back and forth to [place]. She started with third cycle of FOLFIRI here in [place] on 09/10/2020. Ms Brice went to [facility] on 09/17/2020 with abdominal pain, nausea vomiting, lab work-up including urine analysis showed no abnormality, amylase was within normal range. Patient treated symptomatically and improved. As per patient, she stayed dehydrated all the time so she drink lots of water and her nausea vomiting started when she was working her yard, she thinks that she may have overdone it. She also has history of migraine headaches. She completed cycle 4 on September 24, 2020. Ms. Brice is here today for follow-up and consideration of cycle 6 FOLFIRI. She was seen Helena Johnson NP at [facility] [place] oncology on 10/05/2020. She had been reporting headache after chemotherapy and lip tingling for the past 3 weeks. She is getting FOLFIRI treatment. She has had no trouble with her ostomy output and was not having abdominal pain. 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 Improved presacral fluid collection with thin residual rim-enhancing collection. Stable omental thickening without discrete nodularity. No definite CT evidence of metastatic disease in the chest. The recommendation was to proceed with full ferry and reimage her in 6 weeks to reassess for continued progression. Her CEA on 10/05/2020 was 5.5. It was recommended that she have a brain MRI to rule out metastasis given that she has headache after chemotherapy and also has neuropathy in her lips. We will arrange this for her. However I am suspicious that this may be related to her premed of palonosetron as it is a common side effect to have headache after treatment. She will return to [place] in 6 weeks for follow-up and repeat scans. Ms. Brice is here today for follow-up. She is due for cycle 5 FOLFIRI today. She states overall she is doing about the same. She does mention the headache that she described to Tanvi BRANNON as Siteman and we will arrange for MRI of the head however I do feel this could be related to Aloxi as well. We discussed changing her am ordering the MRI of the brain as well. She states she is had some burning in her S[place] but thinks that is related to diet. She states is actually starting to settle down some. She has had increased stool output but has not yet tried Lomotil for this. Imodium does seem to slow it down some. We will also have her try nystatin for her mouth as she has had mucositis. Mucositis has been improved with the baking soda salt water rinses. She does not tolerate Magic mouthwash due to the taste. We will send the nystatin and Lomotil to [facility]. She states otherwise she is doing well. She has no other concerns. Her ECOG is 1. She states she is due to return to [place] on November 13. Past Medical History: Gout Hydronephrosis Mitral valve prolapse Perforated diverticulum Past Surgical History: Appendectomy Bladder surgery Lower anterior resection Tubal ligation Ureteral stent placement Covid vaccine #2 in 2020 Covid vaccine #1 in 2020 Allergies: pecan nuts, Penicillins, and walnuts. Medications: Daily Vitamin 1 Tablet Oral daily Dexamethasone 2 Tablet (of 4 mg) Oral PRN Lexapro 1 Tablet (of 10 mg) Oral daily Ondansetron HCl 1 Tablet (of 8 mg) Oral PRN oxyCODONE-Acetaminophen 1 Tablet (of 5-325 mg) Oral q 4 to 6 hours PRN Family History: Ms. Brice's mother at age 83: congestive heart failure, and cirrhosis. Ms. Brice's father at age 80: chronic obstructive pulmonary disease. Ms. Brice has 1 brother who is : overdosage. Social History: Ms. Brice is . Ms. Brice no longer smokes. She drinks occasionally. Review Of Symptoms: <See Above> Vital Signs: Performed on Oct 08, 2020 16:15 Height - 69.00 in Temperature - 97 F (LOW) Pulse - 74 /min Respiration - 18 /min BP - 113/68 mm(hg) O2 Sat - 99 % Pain - 0 Fatigue - 0 Performed on Oct 08, 2020 12:52 Height - 69.00 in Weight - 142.8 lbs (HIGH) BSA - 1.79 sq.m BMI - 21.09 Temperature - 97.9 F (LOW) Pulse - 88 /min Respiration - 18 /min BP - 115/69 mm(hg) O2 Sat - 98 % Pain - 0 Fatigue - 3,0 - Fully active, able to carry on all predisease activities without restrictions. (ECOG) Physical Examination: Abdomen Non-tender, non-distended, no masses or ascites. Good bowel sounds noted in all quads. No guarding or rebound tenderness. No pulsatile masses. Left lower quadrant ostomy site is unremarkable with normal-appearing stool output. Constitutional Alert, oriented, no acute distress. Skin pink, warm and dry. Head Normocephalic; atraumatic. Eyes Conjunctivae and sclerae are clear and without icterus. Pupils are reactive and equal. ENMT Slight redness with white patchy areas on the palate and tongue no active lesions noted. Neck Supple without masses or thyromegaly. No jugular venous distension. Hematologic/Lymphatic No petechiae or purpura. No tender or palpable lymph nodes in the cervical or supraclavicular areas. Respiratory Lungs are clear to auscultation without rhonchi or wheezing. Cardiovascular Regular rate and rhythm of heart without murmurs,clicks, gallops or rubs. Back/Spine Non-tender to palpation. Extremities No visible deformities, no cyanosis, clubbing or edema. Musculoskeletal No tenderness or swelling, normal range of motion without obvious weakness. Integumentary No rashes or lesions. Neurologic No sensory or motor deficits, normal cerebellar function, normal gait. Psychiatric Alert and oriented times three. Coherent speech. Verbalizes understanding of our discussions today. Laboratory:Test performed on Oct 08, 2020 11:47 Sodium 139 mmol/L Potassium 3.9 mmol/L Chloride 101 mmol/L CO2 26 mmol/L Anion Gap 15.9 BUN 12 mg/dL Creatinine 0.6 mg/dL Cr Clearance (Est) 97.1000 mL/min eGFR 102.0 mL/min Glucose 84 mg/dL Osmolality - Calculated 287 mOsm/kg Calcium 8.4 mg/dL Protein, Total 6.4 g/dL Albumin 3.9 g/dL Globulin 2.5 g/dL Bilirubin, Total 0.2 mg/dL ALT (SGPT) 12 U/L AST (SGOT) 17 U/L Alkaline Phosphatase 112 IU/L WBC 6.4 10 3/uL RBC 4.08 10 6/uL HGB 12.0 g/dL HCT 38.0 % MCV 93.1 fL MCH 29.4 pg MCHC 31.6 g/dL RDW 18.4 % Platelet Count 173 10 3/cmm MPV 9.9 fL Neutrophils 4.34 10 3/uL Lymphocytes 1.3 10 3/uL Monocytes 0.5 10 3/uL Eosinophils 0.2 10 3/uL Basophils 0.1 10 3/uL Neutrophil % 67.9 % Lymphocyte % 20.1 % Monocyte % 8.5 % Eosinophil % 2.4 % Basophils % 0.8 % NRBC % 0 % Impression: Recurrent rectal cancer per presacral biopsy done in June 2020 History of stage IIIc, T4 N2 M0 locally advanced rectal adenocarcinoma presenting with perforation diagnosed in early 2019 Status post clinical trial with Epacodostat/capox,, patient developed colitis later on she was switched to FOLFOX on September 09, 2019, oxaliplatin was discontinued after third cycle on October 07, 2019 subsequently continue with 5-FU alone till April 06, 2020, On June 12, 2020 underwent excision of anal lesion which was consistent with metastatic adenocarcinoma and on June 19, 2020 underwent reexcision of perianal adenocarcinoma with clear margin, patient was started on FOLFIRI July 19, 2020 at [facility]. She continues to followup with her physician there but is receiving her treatments locally. History of DVT Plan/Problems Addressed at this Visit: 1. Recurrent, metastatic stage IIIc, T4N2M0 locally advanced rectal adenocarcinoma. She had preop SBRT followed by cycle 1 day 1 of CAPOX/epacadostat (clinical trial at [facility]) on 07/01/2019. CT abdomen pelvis 07/29/2019 showed the sentence of the Molina's pouch with fistulization to the adjacent tethered small bowel, and increase in small bowel and rectal wall thickening as well as edema. She was taken off clinical trial due to the abdominal pain and intra-abdominal pathology. She was admitted on 07/28 through 08/07/2019 for abdominal pain. Flex sig on 07/30/2019 showed a partially obstructing ulcerated mass with retained fluid in the Rebecca pouch, proximal aspect of the Rebecca pouch was ulcerated. Status post dilatation and transanal drainage. CT abdomen pelvis on 08/20/2019 showed resolution of the pelvic fluid collection with fistulous tract between the [place] pouch and a pelvic small bowel loop, improved enteritis, new moderate left hydro-, mild right hydro-. 08/30/2019 OR flex sig with placement of transanal drain and bilateral ureteral stents. She was taken off the epacadostat protocol. Started see 1 D1 of FOLFOX on 09/09/2019. 5-FU only on 10/21/2019. Cycle 8-day 1 was on 12/16/2019. Preop course complicated by SBO prior to surgery, eventually underwent colonoscopy with ascending colon snare polypectomy, exploratory laparotomy, extensive lysis of adhesions, completion proctectomy to be, takedown of end colostomy with creation of colonic J-pouch and end to end anastomosis, cystoscopy and stent placement by urology team on 01/17/2020. Surgical pathology was significant for ypT3, tumor present at distal margin of part A, radial margin and additional distal margin (BFR 1), perineural invasion, lymphovascular invasion, and no evidence of malignancy in 13 lymph nodes. Guardian at 03/11/2020 revealed VUS: PALB2, TERT. The plan then was to complete 6 months of perioperative chemotherapy. She received 11 cycles total as of 04/06/2020. She then went for rectovaginal fistula repair on 06/12/2020. A nodule was removed and positive for adenocarcinoma. 06/19/2020 she underwent reexcision of the perianal lesion, pathology showed adenocarcinoma with negative margins. She completed PET/CT imaging on 07/15/2019 with indeterminate findings suspicious for residual malignancy. CT chest abdomen pelvis on 07/24/2020 showed pericecal nodule worrisome for metastatic disease and fluid collection in the presacral space. She was admitted to [facility] on 07/20 to 07/24/2020 for possible presacral abscess on scan. CRS recommended biopsy by IR, cultures were negative but pathology showed metastatic adenocarcinoma. Cycle 1 day 1 of FOLFIRI was given on August 03, 2020. Given her K-tucker mutated cancer she is unable to add anti-EGFR agents or chemotherapy. Also due to concern for rectal vaginal fistula we will plan to avoid any ant-VEGF agents as well. A. She is due for cycle 5 FOLFIRI today. We will proceed as planned. B. Continue current antiemetics with exception of changing palonosetron to Zofran due to headaches noted after chemotherapy. C. Today's labs reviewed in detail and discussed with Jazmin Babs and a copy was given to her. WBC 6.4, hemoglobin 12.0, platelets 173,000, ANC is 4340. Potassium 3.9 glucose 84 creatinine 0.6 and LFTs are normal her alk phos is 112 range 35-1 05. This is stable for her. Her weight is stable today at 142.8. 2. Persistent headaches noted to be occurring after chemotherapy???history of migraines. A. We will change her premed antimedic palonosetron to plain ondansetron to see if this makes any difference. B. MRI imaging of the brain is requested with contrast to rule out any metastatic disease. 3. Mucositis. A. She has mild mucositis which has been relieved with baking soda salt water rinses. B. We will add oral nystatin to be called to [facility]. 4. Neuropathy. 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 It is noted that her last oxaliplatin was September 2019. She had been previously on gabapentin for the neuropathy and that was stopped. She reported that her symptoms are stable however she is having some numbness in her lips. 5. Nausea vomiting. A. We did discuss in detail and at length changing her Aloxi to the Zofran that she will need to take Zofran at home. She will need to take it sooner than previously taken due to the short acting ondansetron versus the palonosetron. B. I have also added Pepcid to her premeds. C. We could discuss adding Zyprexa/olanzapine if she has further problems with nausea. D. We could possibly add Transderm scopolamine patch if she has persistent nausea between cycles. We would need to watch for headache. 6. Loose stool/diarrhea A. Some improvement on [id number] Imodium but still persistent multiple stools. B. We will have her try Lomotil to see if this improves the frequent loose stools. C. If this is not improving we may need to consider C. difficile testing for her. 7. Follow-up plan A. We will request MRI of the brain with contrast for persistent headaches. B. We will plan to see her back in 2 weeks with CBC CMP and CEA. She will be due for cycle 6 FOLFIRI at that time. C. Ms. Brice was instructed to contact us in the interim should questions or problems arise. Total time spent on Ms. Brice's care today to include review of her records prior to visit, discussion of her current treatment plan, side effect identification and management as well as post visit documentation was 60 minutes. Signed By: Shreya Grant-, [facility] Filemon Hickey MD <<Signature on File>>
--- NOTE | 2020-11-03 23:29 | ONC FU_ITS ---
[facility] Patient Note Patient: Kathryn Brice Unit #: [id number]: [id number] Dictated By: Shreya GrantDate of Visit: Oct 22, 2020 Onc MED Follow-Up/Prog Note Chief Complaint: Recurrent rectal adenocarcinoma History of Present Illness: Ms. Brice is a 60-year-old female who was admitted to hospital with abdominal pain, nausea/vomiting and s 20 pound weight loss over the period of 3 months on May 05, 2019. She underwent CT scan of abdomen which showed rectal wall thickening and a mass. A CT scan of abdomen done on May 06, 2019 showed sigmoid pneumatosis consistent with perforation. Ms. Brice underwent flex sigmoidoscopy on May 08, 2019 subsequently diagnostic laparoscopy converted to laparotomy with Molina procedure by Dr. Burch. The pathology showed moderately differentiated invasive adenocarcinoma from the rectal mass biopsy. MMR staining retained by IHC, 11 lymph nodes were negative for metatatic disease. On May 14, 2019 follow-up CT scan of abdomen pelvis showed postoperative changes with fluid and edema adjacent from Rebecca pouch consistent with a leak with peritonitis and ileus. Unchanged rectal mass with a perirectal, perisacral, left common iliac and retroperitoneal lymphadenopathy. Fluid drained by interventional radiologist on May 14, 2019 with the drainage catheter removed on May 17, 2019. On May 27, 2019, pelvic MRIs showed 5.5 cm high rectal mass with multiple mesorectal and inferior mesenteric artery lymph nodes e.g. T4, N2. Postsurgical changes with consistent with dehiscence of Rebecca's pouch, enlarged left common iliac node. On June 07, 2019 CT scan of chest showed 2 1 to 2 cm nodules within lateral basal segment of left lower lobe and and 1.7 x 1.3 right hilar lymph node. Ms Brice was placed on the Epacodostat clinical trial with a short course radiation therapy 3500 rad from June 10-2019. A CT scan of chest abdomen pelvis done on June 13, 2019 showed resolution of pelvic collection with residual soft tissue thickening along Molina's pouch, stable rectal mass and stable LAD. She was started on cycle 1 day 1 CAPOX on July 01, 2019. Patient was admitted to [facility] on July 14-2019 for abdominal pain, nausea vomiting likely radiation enteritis versus chemo toxicity from oral Xeloda but less likely immunotherapy related (epacodostat). She was restarted on Epacodostat on July 18, 2019. CT scan of abdomen pelvis done on July 29, 2019 showed dehiscence of Molina's pouch with fistulization to the adjacent small bowel, and increasing small bowel and rectal wall thickening and edema. Patient was admitted to [facility] again on July 29, 2019 through August 07, 2019 for abdominal pain, flex sig done on July 30, 2019 showed partially obstructing ulcerated mass with retained fluid in the Rebecca pouch with the proximal aspect of Rebecca pouch is ulcerated, status post dilatation and transanal drainage. CT scan of abdomen pelvis done on August 20, 2019 showed resolution of pelvic fluid collection with a fistulous tract between Rebecca pouch and pelvic pelvic small bowel loop, improved enteritis, new moderate left hydro and mild right hydronephrosis. On August 30, 2019 underwent flex sig with placement of transanal drainage and bilateral ureteral stents. 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 CT/MRI of abdomen pelvis done on December 02, 2019 showed treatment response, reduction in rectal mass., Treatment with 5-FU alone was given on December 16, 2019 followed by break due to to hospitalization for small bowel obstruction and then scheduled for surgery. And SBO resolved on conservative management and patient was discharged home on TPN. On January 17, 2020 underwent colonoscopy with ascending colon snare polypectomy, exploratory laparotomy, extensive lysis of adhesions, completion proctectomy, takedown of end colostomy with creation of colonic J-pouch and end-to-end anastomosis. Cystoscopy and stent placement by urology team, patient was admitted to [facility] on January 25 2 January 30, 2020 with fever, pain, bloody ostomy, she underwent ileoscopy on January 28, 2020 it was normal and no bleeding was seen Patient was seen by colorectal surgery on February 11, 2020 and recommended to complete 6 months of chemotherapy and then reverse in 3 months following completion of chemotherapy. Patient completed 11 cycles of total chemotherapy on April 06, 2020. And during follow-up on June 12, 2020 she underwent excision of anal lesion, pathology consistent with metastatic adenocarcinoma. No rectovaginal fistula. On June 19, 2020 reexcision of perianal adenocarcinoma with additional margin and pathology positive for adenocarcinoma with clear margin. Patient underwent CT scan of chest abdomen pelvis on July 24, 2020 which showed pericecal nodule worrisome for metastatic disease and fluid collection in the presacral space she was admitted to [facility] from July 20- for possible presacral abscess seen on the scan which was drained and culture came back negative but pathology showed metastatic adenocarcinoma and patient was started on systemic chemotherapy with FOLFIRI, which she tolerated well and her second cycle was given on August 17, 2020, patient is considering switching her care to [place] because of inconvenience of traveling back and forth to [place]. She started with third cycle of FOLFIRI here in [place] on 09/10/2020. Ms Brice went to [facility] on 09/17/2020 with abdominal pain, nausea vomiting, lab work-up including urine analysis showed no abnormality, amylase was within normal range. Patient treated symptomatically and improved. As per patient, she stayed dehydrated all the time so she drink lots of water and her nausea vomiting started when she was working her yard, she thinks that she may have overdone it. She also has history of migraine headaches. She completed cycle 4 on September 24, 2020. Ms. Brice is here today for follow-up and consideration of cycle 6 FOLFIRI. She was seen Helena Johnson NP at [facility] oncology on 10/05/2020. She had been reporting headache after chemotherapy and lip tingling for the past 3 weeks. She is getting FOLFIRI treatment. She has had no trouble with her ostomy output and was not having abdominal pain. 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 Improved presacral fluid collection with thin residual rim-enhancing collection. Stable omental thickening without discrete nodularity. No definite CT evidence of metastatic disease in the chest. The recommendation was to proceed with FOLFIRI and reimage her in 6 weeks to reassess for continued progression. Her CEA on 10/05/2020 was 5.5. It was recommended that she have a brain MRI to rule out metastasis given that she has headache after chemotherapy and also has neuropathy in her lips. We did arrange this for her. However I am suspicious that this may be related to her premed of palonosetron as it is a common side effect to have headache after treatment. She will return to [place] in 6 weeks for follow-up and repeat scans. Her last dose was of FOLFORIR on October 08, 2020. She has no new concerns today. She did have the MRI of the brain with and without contrast on 10/21/2020. There were no evidence of metastatic disease to the brain. 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 Her had headaches have been better overall with stopping the Aloxi and relying on ondansetron as part of her premed/prechemo regimen. Ms. Brice is here today for follow-up. She is due for cycle 6 FOLFIRI today. She states overall she is doing about the same. She does mention the headache but states it is better overall. She has had mucositis in the past and typically resolves with baking soda salt water rinses. She had a recent white flare but that has healed now. She denies any diarrhea or constipation. She denies any vaginal discharge or changes. She denies any lower extremity edema. She states her bowels and bladder are normal for her. She denies any shortness of breath orthopnea. She denies any concerns today. Her ECOG is 1. She states she is due to return to [place] on November 13. Past Medical History: Gout Hydronephrosis Mitral valve prolapse Perforated diverticulum Past Surgical History: Appendectomy Bladder surgery Lower anterior resection Tubal ligation Ureteral stent placement Covid vaccine #2 in 2020 Covid vaccine #1 in 2020 Allergies: pecan nuts, Penicillins, and walnuts. Medications: Daily Vitamin 1 Tablet Oral daily Dexamethasone 2 Tablet (of 4 mg) Oral PRN Lexapro 1 Tablet (of 10 mg) Oral daily Ondansetron HCl 1 Tablet (of 8 mg) Oral PRN oxyCODONE-Acetaminophen 1 Tablet (of 5-325 mg) Oral q 4 to 6 hours PRN Family History: Ms. Brice's mother at age 83: congestive heart failure, and cirrhosis. Ms. Brice's father at age 80: chronic obstructive pulmonary disease. Ms. Brice has 1 brother who is : overdosage. Social History: Ms. Brice is . Ms. Brice no longer smokes. She drinks occasionally. Review Of Symptoms: <See Above> Vital Signs: Performed on Oct 22, 2020 15:50 Height - 69.00 in Temperature - 98.3 F (LOW) Pulse - 75 /min Respiration - 18 /min BP - 141/83 mm(hg) (HIGH) O2 Sat - 99 % Performed on Oct 22, 2020 11:52 Height - 69.00 in Weight - 148.0 lbs (HIGH) BSA - 1.82 sq.m BMI - 21.86 Temperature - 97.6 F (LOW) Pulse - 69 /min Respiration - 17 /min BP - 112/78 mm(hg) O2 Sat - 96 % Pain - 0,0 - Fully active, able to carry on all predisease activities without restrictions. (ECOG) Physical Examination: Constitutional Alert, oriented, no acute distress. Skin pink, warm and dry. Head Normocephalic; atraumatic. Eyes Conjunctivae and sclerae are clear and without icterus. Pupils are reactive and equal. Neck Supple without masses or thyromegaly. No jugular venous distension. Hematologic/Lymphatic No petechiae or purpura. No tender or palpable lymph nodes in the cervical or supraclavicular areas. Respiratory Lungs are clear to auscultation without rhonchi or wheezing. Cardiovascular Regular rate and rhythm of heart without murmurs,clicks, gallops or rubs. Abdomen Non-tender, non-distended, no masses or ascites. Good bowel sounds noted in all quads. No guarding or rebound tenderness. No pulsatile masses. Left lower quadrant ostomy site is unremarkable with normal-appearing stool output. Back/Spine Non-tender to palpation. Extremities No visible deformities, no cyanosis, clubbing or edema. Musculoskeletal No tenderness or swelling, normal range of motion without obvious weakness. Integumentary No rashes or lesions. Neurologic No sensory or motor deficits, normal cerebellar function, normal gait. Psychiatric Alert and oriented times three. Coherent speech. Verbalizes understanding of our discussions today. Laboratory:Test performed on Oct 22, 2020 12:15 WBC 5.3 10 3/uL RBC 3.71 10 6/uL HGB 11.1 g/dL HCT 35.8 % MCV 96.5 fL MCH 29.9 pg MCHC 31.0 g/dL RDW 17.0 % Platelet Count 191 10 3/cmm MPV 9.9 fL Neutrophils 3.21 10 3/uL Lymphocytes 1.2 10 3/uL Monocytes 0.5 10 3/uL Eosinophils 0.4 10 3/uL Basophils 0.0 10 3/uL Neutrophil % 60.7 % Lymphocyte % 21.8 % Monocyte % 8.5 % Eosinophil % 7.8 % Basophils % 0.8 % NRBC % 0 % Test performed on Oct 21, 2020 10:16 Sodium 139 mmol/L Potassium 4.2 mmol/L Chloride 100 mmol/L CO2 30 mmol/L Anion Gap 13.2 BUN 16 mg/dL Creatinine 0.7 mg/dL Cr Clearance (Est) 83.2300 mL/min eGFR 85.4 mL/min Glucose 71 mg/dL Osmolality - Calculated 288 mOsm/kg Calcium 9.0 mg/dL Protein, Total 6.1 g/dL Albumin 4.1 g/dL Globulin 2.0 g/dL Bilirubin, Total 0.2 mg/dL ALT (SGPT) 10 U/L AST (SGOT) 18 U/L Alkaline Phosphatase 100 IU/L Impression: Recurrent rectal cancer per presacral biopsy done in June 2020 History of stage IIIc, T4 N2 M0 locally advanced rectal adenocarcinoma presenting with perforation diagnosed in early 2019 Status post clinical trial with Epacodostat/capox,, patient developed colitis later on she was switched to FOLFOX on September 09, 2019, oxaliplatin was discontinued after third cycle on October 07, 2019 subsequently continue with 5-FU alone till April 06, 2020, On June 12, 2020 underwent excision of anal lesion which was consistent with metastatic adenocarcinoma and on June 19, 2020 underwent reexcision of perianal adenocarcinoma with clear margin, patient was started on FOLFIRI July 19, 2020 at [facility]. She continues to followup with her physician there but is receiving her treatments locally. History of DVT Plan/Problems Addressed at this Visit: 1. Recurrent, metastatic stage IIIc, T4N2M0 locally advanced rectal adenocarcinoma. She had preop SBRT followed by cycle 1 day 1 of CAPOX/epacadostat (clinical trial at [facility]) on 07/01/2019. CT abdomen pelvis 07/29/2019 showed the sentence of the Molina's pouch with fistulization to the adjacent tethered small bowel, and increase in small bowel and rectal wall thickening as well as edema. She was taken off clinical trial due to the abdominal pain and intra-abdominal pathology. She was admitted on 07/28 through 08/07/2019 for abdominal pain. Flex sig on 07/30/2019 showed a partially obstructing ulcerated mass with retained fluid in the Rebecca pouch, proximal aspect of the Rebecca pouch was ulcerated. Status post dilatation and transanal drainage. CT abdomen pelvis on 08/20/2019 showed resolution of the pelvic fluid collection with fistulous tract between the Rebecca pouch and a pelvic small bowel loop, improved enteritis, new moderate left hydro-, mild right hydro-. 08/30/2019 OR flex sig with placement of transanal drain and bilateral ureteral stents. She was taken off the epacadostat protocol. Started see 1 D1 of FOLFOX on 09/09/2019. 5-FU only on 10/21/2019. Cycle 8-day 1 was on 12/16/2019. Preop course complicated by SBO prior to surgery, eventually underwent colonoscopy with ascending colon snare polypectomy, exploratory laparotomy, extensive lysis of adhesions, completion proctectomy to be, takedown of end colostomy with creation of colonic J-pouch and end to end anastomosis, cystoscopy and stent placement by urology team on 01/17/2020. Surgical pathology was significant for ypT3, tumor present at distal margin of part A, radial margin and additional distal margin (BFR 1), perineural invasion, lymphovascular invasion, and no evidence of malignancy in 13 lymph nodes. Guardian at 03/11/2020 revealed VUS: PALB2, TERT. The plan then was to complete 6 months of perioperative chemotherapy. She received 11 cycles total as of 04/06/2020. She then went for rectovaginal fistula repair on 06/12/2020. A nodule was removed and positive for adenocarcinoma. 06/19/2020 she underwent reexcision of the perianal lesion, pathology showed adenocarcinoma with negative margins. She completed PET/CT imaging on 07/15/2019 with indeterminate findings suspicious for residual malignancy. CT chest abdomen pelvis on 07/24/2020 showed pericecal nodule worrisome for metastatic disease and fluid collection in the presacral space. She was admitted to [facility] on 07/20 to 07/24/2020 for possible presacral abscess on scan. CRS recommended biopsy by IR, cultures were negative but pathology showed metastatic adenocarcinoma. Cycle 1 day 1 of FOLFIRI was given on August 03, 2020. Given her K-tucker mutated cancer she is unable to add anti-EGFR agents or chemotherapy. Also due to concern for rectal vaginal fistula we will plan to avoid any ant-VEGF agents as well. A. She is due for cycle 6 FOLFIRI today. We will proceed as planned. B. Continue current antiemetics with exception of changing palonosetron to Zofran due to headaches noted after chemotherapy. C. Today's labs reviewed in detail and discussed with Jazmin Babs and a copy was given to her. WBC 5.3, hemoglobin 11.1, platelets 191,000, ANC is 3210. Her CEA on 10/22/2023 was reported at 6.0. Her potassium at that time was 4.2 creatinine 0.7 LFTs were normal. 2. Persistent headaches noted to be occurring after chemotherapy???history of migraines. A. We did change her premed antimedic palonosetron to plain ondansetron and her headaches seem better overall. B. MRI of the brain with and without contrast from 10/21/2020 did not report any evidence of metastatic disease to the brain. There were small lunar infarcts in the left basal ganglia and no other findings. There was no significant chronic white matter disease. 3. Mucositis. A. She has mild mucositis which has been relieved with baking soda salt water rinses. B. Overall improved since last visit 4. Neuropathy. 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 It is noted that her last oxaliplatin was September 2019. She had been previously on gabapentin for the neuropathy and that was stopped. She reported that her symptoms are stable however she is having some numbness in her lips. 5. Nausea vomiting. A. She is NOT having any recurrent problems. B. I have also added Pepcid to her premeds. C. We could discuss adding Zyprexa/olanzapine if she has further problems with nausea. D. We could possibly add Transderm scopolamine patch if she has persistent nausea between cycles. We would need to watch for headache. 6. Loose stool/diarrhea A. Some improvement on [id number] Imodium but still persistent multiple stools. B. We will have her try Lomotil to see if this improves the frequent loose stools. C. If this is not improving we may need to consider C. difficile testing for her. 7. Follow-up plan A. We will plan to see her back in 2 weeks with CBC CMP and CEA. She will be due for cycle 6 FOLFIRI at that time. B. Ms. Brice was instructed to contact us in the interim should questions or problems arise. Signed By: Shreya Grant <<Signature on File>>
== END 2020-10-28 23:59 | disposition home or self-care (01) ==
LOC: ONCMED 05:35
PROVIDERS: PCP Family Medicine; Visit Provider Nurse Practitioner
DX: Z51.11 Encounter for antineoplastic chemotherapy (principal); C20 Malignant neoplasm of rectum; M10.9 Gout, unspecified; I34.1 Nonrheumatic mitral (valve) prolapse; K52.9 Noninfective gastroenteritis and colitis, unspecified; Z86.718 Personal history of other venous thrombosis and embolism; Z79.899 Other long term (current) drug therapy
CPT/HCPCS: 36415; 70553; 80053; 82378; 85025; 96367; 96368; 96375; 96413; 96416; 99215; A9577; J0461; J0640; J1100; J2405; J3490; J7050; J9190; J9206

== ENCOUNTER 2020-11-12 05:42 | Outpatient (RCR) | payer OTHER, SELFPAY ==
[2020-11-11 18:10] LABS: Basophils # 0.1 10^3/uL (0.0-0.1); Eosinophils # 0.2 10^3/uL (0.0-0.8); Eosinophils % 4.2 %; Hematocrit 37.7 % (37.0-47.0); Hemoglobin 11.6 g/dL (11.5-15.3); Lymphocytes % 21.2 %; Mean Corpuscular HGB Conc 30.8 g/dL (30.0-36.0); Mean Corpuscular Hemoglobin 29.5 pg (28.0-34.0); Mean Corpuscular Volume 95.9 fL (81-99); Mean Platelet Volume 10.4 fL (7.4-10.4); Monocytes # 0.5 10^3/uL (0.2-0.9); Monocytes % 10.4 %; Neutrophils # 3.03 10^3/uL (1.8-7.7); Nucleated Red Blood Cells % 0 %; Platelet Count 250 10^3/cmm (130-400); Red Blood Count 3.93 10^6/uL (4.1-5.3); Red Cell Distribution Width 15.7 % (12.1-15.1); White Blood Count 4.8 10^3/uL (4.0-10.0)
[2020-11-11 18:34] LABS: Alanine Aminotransferase 9 U/L (0-33); Albumin Level 3.9 g/dL (3.5-5.2); Alkaline Phosphatase 119 IU/L (35-105); Anion Gap 14.1 (5-19); Aspartate Amino Transferase 16 U/L (0-32); Blood Urea Nitrogen 11 mg/dL (8-23); Calcium 8.6 mg/dL (8.5-10.5); Carbon Dioxide 26 mmol/L (22-29); Chloride 105 mmol/L (98-107); Globulin 2.7 g/dL (1.3-4.6); Glomerular Filtration Rate 125.9 mL/min (90-130); Glucose 91 mg/dL (65-115); Osmolality Calculated 291 mOsm/kg (285-295); Potassium 4.1 mmol/L (3.5-5.1); Sodium 141 mmol/L (136-145); Total Bilirubin 0.2 mg/dL (0.15-1.2); Total Protein 6.6 g/dL (6.6-8.7)
[2020-11-12] MEDS: famotidine 20 mg/2 mL INJ IVP (10:14)
[2020-11-12] MEDS: sodium chloride 0.9% 250 ML 75 ML IV (10:14)
[2020-11-12] MEDS: ondansetron 2 mg/ML SDV 2 mL 8 MG IV (10:16)
[2020-11-12] MEDS: atropine 1 mg/mL SDV 1 mL 0.4 MG IV (10:18)
--- NOTE | 2020-11-12 17:49 | ONC FU_ITS ---
Dr. Hickey follow up note Patient: Kathryn Brice Unit #: [id number]: [id number] Dicatated By: Filemon Hickey M.D.Date of Visit:Nov 12, 2020 Onc Med Follow-up/Prog Note History of Present Illness: Ms. Brice is a 60-year-old female who was admitted to hospital with abdominal pain, nausea/vomiting and s 20 pound weight loss over the period of 3 months on May 05, 2019. She underwent CT scan of abdomen which showed rectal wall thickening and a mass. A CT scan of abdomen done on May 06, 2019 showed sigmoid pneumatosis consistent with perforation. Ms. Brice underwent flex sigmoidoscopy on May 08, 2019 subsequently diagnostic laparoscopy converted to laparotomy with Molina procedure by Dr. Burch. The pathology showed moderately differentiated invasive adenocarcinoma from the rectal mass biopsy. MMR staining retained by IHC, 11 lymph nodes were negative for metatatic disease. On May 14, 2019 follow-up CT scan of abdomen pelvis showed postoperative changes with fluid and edema adjacent from Rebecca pouch consistent with a leak with peritonitis and ileus. Unchanged rectal mass with a perirectal, perisacral, left common iliac and retroperitoneal lymphadenopathy. Fluid drained by interventional radiologist on May 14, 2019 with the drainage catheter removed on May 17, 2019. On May 27, 2019, pelvic MRIs showed 5.5 cm high rectal mass with multiple mesorectal and inferior mesenteric artery lymph nodes e.g. T4, N2. Postsurgical changes with consistent with dehiscence of Rebecca's pouch, enlarged left common iliac node. On June 07, 2019 CT scan of chest showed 2 1 to 2 cm nodules within lateral basal segment of left lower lobe and and 1.7 x 1.3 right hilar lymph node. Ms Brice was placed on the Epacodostat clinical trial with a short course radiation therapy 3500 rad from June 10-2019. A CT scan of chest abdomen pelvis done on June 13, 2019 showed resolution of pelvic collection with residual soft tissue thickening along Molina's pouch, stable rectal mass and stable LAD. She was started on cycle 1 day 1 CAPOX on July 01, 2019. Patient was admitted to [facility] on July 14-2019 for abdominal pain, nausea vomiting likely radiation enteritis versus chemo toxicity from oral Xeloda but less likely immunotherapy related (epacodostat). She was restarted on Epacodostat on July 18, 2019. CT scan of abdomen pelvis done on July 29, 2019 showed dehiscence of Molina's pouch with fistulization to the adjacent small bowel, and increasing small bowel and rectal wall thickening and edema. Patient was admitted to [facility] again on July 29, 2019 through August 07, 2019 for abdominal pain, flex sig done on July 30, 2019 showed partially obstructing ulcerated mass with retained fluid in the Rebecca pouch with the proximal aspect of Rebecca pouch is ulcerated, status post dilatation and transanal drainage. CT scan of abdomen pelvis done on August 20, 2019 showed resolution of pelvic fluid collection with a fistulous tract between Rebecca pouch and pelvic pelvic small bowel loop, improved enteritis, new moderate left hydro and mild right hydronephrosis. On August 30, 2019 underwent flex sig with placement of transanal drainage and bilateral ureteral stents. 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 CT/MRI of abdomen pelvis done on December 02, 2019 showed treatment response, reduction in rectal mass., Treatment with 5-FU alone was given on December 16, 2019 followed by break due to to hospitalization for small bowel obstruction and then scheduled for surgery. And SBO resolved on conservative management and patient was discharged home on TPN. On January 17, 2020 underwent colonoscopy with ascending colon snare polypectomy, exploratory laparotomy, extensive lysis of adhesions, completion proctectomy, takedown of end colostomy with creation of colonic J-pouch and end-to-end anastomosis. Cystoscopy and stent placement by urology team, patient was admitted to [facility] on January 25 2 January 30, 2020 with fever, pain, bloody ostomy, she underwent ileoscopy on January 28, 2020 it was normal and no bleeding was seen Patient was seen by colorectal surgery on February 11, 2020 and recommended to complete 6 months of chemotherapy and then reverse in 3 months following completion of chemotherapy. Patient completed 11 cycles of total chemotherapy on April 06, 2020. And during follow-up on June 12, 2020 she underwent excision of anal lesion, pathology consistent with metastatic adenocarcinoma. No rectovaginal fistula. On June 19, 2020 reexcision of perianal adenocarcinoma with additional margin and pathology positive for adenocarcinoma with clear margin. Patient underwent CT scan of chest abdomen pelvis on July 24, 2020 which showed pericecal nodule worrisome for metastatic disease and fluid collection in the presacral space she was admitted to [facility] from July 20- for possible presacral abscess seen on the scan which was drained and culture came back negative but pathology showed metastatic adenocarcinoma and patient was started on systemic chemotherapy with FOLFIRI, which she tolerated well and her second cycle was given on August 17, 2020, patient is considering switching her care to [place] because of inconvenience of traveling back and forth to [place]. She started with third cycle of FOLFIRI here in [place] on 09/10/2020. Ms Brice went to [facility] on 09/17/2020 with abdominal pain, nausea vomiting, lab work-up including urine analysis showed no abnormality, amylase was within normal range. Patient treated symptomatically and improved. As per patient, she stayed dehydrated all the time so she drink lots of water and her nausea vomiting started when she was working her yard, she thinks that she may have overdone it. She also has history of migraine headaches. She completed cycle 4 on September 24, 2020. Ms. Brice is here today for follow-up and consideration of cycle 6 FOLFIRI. She was seen Helena Johnson NP at [facility] oncology on 10/05/2020. She had been reporting headache after chemotherapy and lip tingling for the past 3 weeks. She is getting FOLFIRI treatment. She has had no trouble with her ostomy output and was not having abdominal pain. 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 Improved presacral fluid collection with thin residual rim-enhancing collection. Stable omental thickening without discrete nodularity. No definite CT evidence of metastatic disease in the chest. The recommendation was to proceed with FOLFIRI and reimage her in 6 weeks to reassess for continued progression. Her CEA on 10/05/2020 was 5.5. It was recommended that she have a brain MRI to rule out metastasis given that she has headache after chemotherapy and also has neuropathy in her lips. We did arrange this for her. However I am suspicious that this may be related to her premed of palonosetron as it is a common side effect to have headache after treatment. She will return to [place] in 6 weeks for follow-up and repeat scans. Her last dose was of FOLFiRI on October 08, 2020. She has no new concerns today. She did have the MRI of the brain with and without contrast on 10/21/2020. There were no evidence of metastatic disease to the brain. 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 Her had headaches have been better overall with stopping the Aloxi and relying on ondansetron as part of her premed/prechemo regimen. Came for follow-up, denies any specific complaints, no fever chills, no nausea or vomiting, no diarrhea or constipation, patient delayed her treatment for few days because of her visit to [place] and came back last night as per patient she is scheduled for follow-up CT scan of her abdomen at [facility] on Monday. Otherwise no fever chills, no nausea or vomiting, no diarrhea or constipation, colostomy bag is functioning fine, off and on left flank pain, as per patient the past chiropractor used to help her, Denies any jaundice denies any mouth sores denies any abdominal pain, tolerating FOLFIRI well otherwise Medications: Daily Vitamin 1 Tablet Oral daily, Dexamethasone 2 Tablet (of 4 mg) Oral PRN, Lexapro 1 Tablet (of 10 mg) Oral daily, Ondansetron HCl 1 Tablet (of 8 mg) Oral PRN, oxyCODONE-Acetaminophen 1 Tablet (of 5-325 mg) Oral q 4 to 6 hours PRN Allergies: pecan nuts, Penicillins, and walnuts. Review of Systems: Review of Systems is not available for this patient. Vital Signs: Performed on Nov 12, 2020 12:30 Height - 69.00 in Temperature - 98.6 F Pulse - 78 /min Respiration - 18 /min BP - 109/50 mm(hg) O2 Sat - 100 % Performed on Nov 12, 2020 08:40 Height - 69.00 in Weight - 148 lbs BSA - 1.82 sq.m BMI - 21.86 Temperature - 98.1 F (LOW) Pulse - 87 /min Respiration - 18 /min BP - 110/73 mm(hg) O2 Sat - 98 % Pain - 4 Fatigue - 3 Performance Status: 0 - Fully active, able to carry on all predisease activities without restrictions. (ECOG) Physical Examination: ENMT - No mouth sores, no thrush, no jaundice, Respiratory - Lungs are clear to auscultation, Cardiovascular - Regular rate and rhythm of heart, Abdomen - Soft, bowel sounds present, ostomy site no discharge, Extremities - No visible edema. Lab/Imaging: Test performed on Oct 22, 2020 12:15 WBC 5.3 10 3/uL RBC 3.71 10 6/uL HGB 11.1 g/dL HCT 35.8 % MCV 96.5 fL MCH 29.9 pg MCHC 31.0 g/dL RDW 17.0 % Platelet Count 191 10 3/cmm MPV 9.9 fL Neutrophils 3.21 10 3/uL Lymphocytes 1.2 10 3/uL Monocytes 0.5 10 3/uL Eosinophils 0.4 10 3/uL Basophils 0.0 10 3/uL Neutrophil % 60.7 % Lymphocyte % 21.8 % Monocyte % 8.5 % Eosinophil % 7.8 % Basophils % 0.8 % NRBC % 0 % Test performed on Oct 21, 2020 10:16 Sodium 139 mmol/L Potassium 4.2 mmol/L Chloride 100 mmol/L CO2 30 mmol/L Anion Gap 13.2 BUN 16 mg/dL Creatinine 0.7 mg/dL Cr Clearance (Est) 83.2300 mL/min eGFR 85.4 mL/min Glucose 71 mg/dL Osmolality - Calculated 288 mOsm/kg Calcium 9.0 mg/dL Protein, Total 6.1 g/dL Albumin 4.1 g/dL Globulin 2.0 g/dL Bilirubin, Total 0.2 mg/dL ALT (SGPT) 10 U/L AST (SGOT) 18 U/L Alkaline Phosphatase 100 IU/L Impression: Recurrent rectal cancer per presacral biopsy done in June 2020 History of stage IIIc, T4 N2 M0 locally advanced rectal adenocarcinoma presenting with perforation diagnosed in early 2019 Status post clinical trial with Epacodostat/capox,, patient developed colitis later on she was switched to FOLFOX on September 09, 2019, oxaliplatin was discontinued after third cycle on October 07, 2019 subsequently continue with 5-FU alone till April 06, 2020, On June 12, 2020 underwent excision of anal lesion which was consistent with metastatic adenocarcinoma and on June 19, 2020 underwent reexcision of perianal adenocarcinoma with clear margin, patient was started on FOLFIRI July 19, 2020 at [facility]. She continues to followup with her physician there but is receiving her treatments locally. History of DVT Plan: Discussed with patient regarding her labs white blood count 4.8 hemoglobin 11.6 hematocrit 37.7 platelets 250,000 CMP within normal limits Clinically, patient doing well, tolerating systemic therapy well, will proceed with next cycle of FOLFIRI today and then patient is scheduled for follow-up CT scan of abdomen at [facility] on coming Monday for further planning and she will return to clinic in weeks with CBC CMP unless other recommendations by [facility] oncology team. Signed By: Filemon Hickey M.D. <<Signature on File>>
== END 2020-11-18 12:00 | disposition home or self-care (01) ==
LOC: ONCMED 05:42
PROVIDERS: PCP Family Medicine; Visit Provider Internal Medicine Hematology & Oncology
DX: Z51.11 Encounter for antineoplastic chemotherapy (principal); C20 Malignant neoplasm of rectum; Z86.718 Personal history of other venous thrombosis and embolism; Z79.01 Long term (current) use of anticoagulants; Z79.899 Other long term (current) drug therapy
CPT/HCPCS: 36591; 80053; 85025; 96367; 96368; 96375; 96413; 96416; 99215; J0461; J0640; J1100; J2405; J3490; J7050; J9190; J9206

== ENCOUNTER 2020-11-18 12:30 | Emergency (ER) | payer OTHER, SELFPAY ==
[2020-11-18 13:28] VITALS: BP 109/72; PULSE 76; RESP 19; TEMP 37.2; O2SAT 98; BMI 20.7
--- NOTE | 2020-11-18 14:46 | W.ED.BACK ---
Documented by User: ALEXANDER Leroy 11/24/20 07:09 HPI - Back Pain/Injury General: Chief Complaint: Back Pain/Injury Stated Complaint: Lower Back Pain Time Seen by Provider: 11/18/20 14:46 Source: patient Mode of arrival: ambulatory Limitations: no limitations History of Present Illness: HPI Narrative: Patient is a 60-year-old female here for evaluation of severe lower back pain. Patient tells me she has had lower back pain over the past month. She states over the last 72 hours it has become severe. She tells me she is not able to sleep secondary to pain. Patient states pain does not radiate into her lower extremities. Pain is worse with any form of movement, walking, sitting. She has not had any injury or trauma. Patient undergoing chemotherapy for invasive rectal adenocarcinoma-following with oncology here as well as [facility]. BERNAL elicited complaint: back pain Pertinent past history: cancer Onset (ago): week(s) Timing: constant and progressively worsening Severity: severe Similar Symptoms Previously: No Quality: dull and aching Location: lumbar spine and sacrum Radiation: buttocks Exacerbating factors: movement, sitting upright and walking Associated symptoms: Reports no associated symptoms and difficulty walking (secondary to pain); Deny abdominal pain, chills, dysuria, fatigue or fever(s) Treatments prior to arrival: NSAIDS, prescription analgesics and other (muscle relaxers) Work related injury: No Review of Systems Const: Denies: fever(s), chills, body aches, fatigue or malaise Card: Denies: chest pain Resp: Denies: dyspnea GI: Denies: abdominal pain : Denies: flank pain or dysuria Musc: Reports: back pain; Denies: neck pain, extremity pain, extremity swelling, joint pain or joint swelling Skin/Breast: Denies: rash Neuro: Reports: difficulty walking (secondary to pain); Denies: headache(s), numbness in extremities, weakness in extremities or sensory changes PFS ED PFSH: Medical History (Updated 11/26/20 @ 00:01 by ) 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 Maloney Tatum Surgical History H/O colectomy Diverting colostomy placement History of appendectomy History of bilateral tubal ligation History of bladder surgery S/P ureteral stent placement Placed in August 2019 and removed in September 2019 secondary to severe intolerable discomfort. Sounds like metallic stents. Family History Other CAD (coronary artery disease) Denies family history of Diabetes Hyperlipidemia Cancer Hypertension Social History Smoking and tobacco status: former smoker Alcohol intake: current Alcohol intake frequency: holidays/special occasions only Household members: family Housing: House Physical Exam Const: COMMON NORMALS: no acute distress, patient oriented x3, no limitations and alert NUTRITIONAL APPEARANCE: thin ORIENTATION/CONSCIOUSNESS: Yes awake, Yes oriented to person, Yes oriented to place and Yes oriented to time Resp: COMMON NORMALS: normal respiratory effort Back/Pelvis: THORACIC SPINE/UPPER BACK: Yes normal to inspection, Yes thoracic ROM normal, No thoracic spinal tenderness and No paraspinal muscle tenderness LUMBAR SPINE/LOWER BACK: Yes lumbar spinal tenderness (lower lumbar), No paraspinal muscle tenderness and No paraspinal muscle spasm PELVIS: Yes buttocks normal SACROILIAC JOINTS: Yes SI joint(s) abnormal SI joint details: tender to palpation SACRUM: tenderness Extremity: COMMON NORMALS: normal to inspection, full ROM, capillary refill normal, no joint enlargement, no clubbing, cyanosis or edema, no calf tenderness and no pedal edema Neuro: COMMON NORMALS: patient oriented x3 SENSORIUM/ORIENTATION: Yes alert, Yes oriented to person, Yes oriented to place and Yes oriented to time Skin: COMMON NORMALS: no rashes or lesions noted GENERAL SKIN EXAM: no rashes or lesions noted Course Vital Signs: Vital signs: Vital Signs Temperature 99.0 F 11/18/20 13:28 Pulse Rate 71 11/18/20 17:05 Respiratory Rate 14 11/18/20 17:05 Blood Pressure 146/80 11/18/20 17:05 Pulse Oximetry 98 11/18/20 17:05 MDM - Back Pain/Injury MDM Narrative: Medical decision making narrative: Patient has insufficiency fractures of her sacrum. These are nonsurgical. We will have case management set her up with orthopedics and let her oncologist Dr. Hickey know (she has an appointment next week with him). She will be sent home with a walker for weight bearing. She states her oxycodone at home are 5 mg and not controlling her pain therefore will prescribe her 10 mg tablets to see if this better controls her pain. She also mentioned that her 50 mg tramadol she felt like helped more so than the oxycodone so we will give her this as well-told her to use one or the other-whichever she felt like helped the most. Case discussed with Dr. Ibanez who agrees with evaluation/plan for patient. Imaging Data^: CT bony pelvis: Radiologist's impression: [address] [place] [address] CT Scan Report Signed Patient: Kathryn Brice Unit #: [id number] : 1960 Age/Sex: 60 / F ADM Date: 11/18/20 Loc: ER Room/Bed: Attending Dr: Ordering Provider/Ordering MD: Cleo Pruitt Date of Service: 11/18/20 Procedure(s): CT bony pelvis 54672 Accession Number(s): [id number] Report Number: [id number] WS: [id number] NONCONTRAST CT OF THE PELVIS TECHNIQUE: Noncontrast CT of the pelvis with coronal and sagittal reformatted images. CLINICAL INFORMATION: severe pain; CA patient COMPARISON: None. DLP: 338.[address] scans at [facility] use at least one of these dose optimization techniques: automated exposure control; mA and/or kV adjustment per patient size (includes targeted exams where dose is matched to clinical indication); or iterative reconstruction. FINDINGS: Tiny nondisplaced fracture involving the left sacrum at the sacral inlet with sclerosis. Additional sclerosis involving the left sacral ala. Additional nondisplaced fracture with cortical step-off involving the left SI joint in the lower sacrum eccentric to the left. Recommend correlation for recent trauma versus sacral insufficiency fractures. Normal visualized pubic rami. Normal acetabulum. Both hips are normal in appearance. Postoperative changes in the pelvis. Partially visualized colostomy in the left lower quadrant. CT/CT bony pelvis [id number] IMPRESSION: Subtle nondisplaced left sacral fractures described above with extension to the left SI joint inferiorly.Recommend correlation for recent trauma versus sacral insufficiency fractures. Dictated By: Clovis Francisco MD Signed By: Clovis Francisco MD Signed Date/Time: 11/18/20 1603 DD/ 1556 CT lumbar: Radiologist's impression: [facility] [address] [place] [address] CT Scan Report Signed Patient: Kathryn Brice Unit #: [id number] : 1960 Age/Sex: 60 / F ADM Date: 11/18/20 Loc: ER Room/Bed: Attending Dr: Ordering Provider/Ordering MD: Cleo Pruitt Date of Service: 11/18/20 Procedure(s): CT lumbar spine wo con* [id number] Accession Number(s): [id number] Report Number: [id number] WS: [id number] CT LUMBAR SPINE TECHNIQUE: Noncontrast CT of the lumbar spine with coronal and sagittal reformatted images. CLINICAL INFORMATION: severe back pain; CA pt COMPARISON: None. DLP: 1755.[address] scans at [facility] use at least one of these dose optimization techniques: automated exposure control; mA and/or kV adjustment per patient size (includes targeted exams where dose is matched to clinical indication); or iterative reconstruction. FINDINGS: Mild lumbar curve. No acute compression. Disc space narrowing worse at T12-1 and L2-3. Vacuum disc phenomenon L2-3 with degenerative endplate-type changes. No high-grade central canal stenosis. Postoperative changes partially visualized in the pelvis. Tiny nondisplaced fractures involving the left sacrum and sacral ala with evidence of sclerosis. Recommend correlation for recent trauma or insufficiency fractures. L1-L2: Mild annular bulging. Spinal canal and foramen are patent. Mild facet arthropathy. L2-L3: Slight retrolisthesis L2 on L3. Moderate facet arthropathy. Spinal canal and foramen are patent. L3-L4: Mild annular bulging. Moderate facet arthropathy. Spinal canal and foramen are patent. L4-L5: Mild annular bulging with slight effacement of the ventral thecal sac. Mild right and no significant left foraminal narrowing. Spinal canal is patent. Moderate facet arthropathy. L5-S1: Mild disc bulging with a shallow right pericentral protrusion. Slight narrowing of the right subarticular recess. Mild right and no significant left foraminal narrowing. Moderate facet arthropathy. CT/CT lumbar spine wo con* [id number] IMPRESSION: 1. Mild lumbar curve. No acute compression. No high-grade central canal stenosis. 2. No evidence of bony metastatic disease in the lumbar spine. 3. Tiny nondisplaced fractures involving the left sacrum and sacral ala with evidence of sclerosis. Recommend correlation for recent trauma or insufficiency fractures 4. Mild annular bulging L4-5 with mild right L4-5 foraminal narrowing. 5. Shallow right pericentral protrusion L5-S1 with slight narrowing of the right subarticular recess. Mild right L5-S1 foraminal narrowing. 6. Moderate facet arthropathy L4-L5 and L5-S1. 7. Partially visualized postoperative changes in the pelvis. Dictated By: Clovis Francisco MD Signed By: Clovis Francisco MD Signed Date/Time: 11/18/20 155 DD/ 1542 Discharge Plan Discharge Patient Disposition: Home Clinical Impression: Sacral insufficiency fracture Condition: Stable Prescriptions: New tramadol 100 mg tablet 100 mg PO Q8H PRN (Reason: pain) Qty: 30 RF: 0 oxycodone 10 mg tablet 10 mg PO Q6H PRN (Reason: pain) Qty: 20 RF: 0 No Action diphenoxylate-atropine 2.5-0.025 mg tablet 1 tab PO DAILY RF: 0 prednisone 20 mg tablet 20 mg PO DAILY Qty: 15 RF: 0 loperamide 2 mg Tablet 4 mg PO BID RF: 0 dexamethasone 4 mg tablet See Rx Instructions .ROUTE .COMPLEX RF: 0 oxycodone 10 mg tablet 10 mg PO Q4H PRN (Reason: Pain) RF: 0 multivitamin Tablet 1 tab PO DAILY@07 RF: 0 ondansetron 8 mg tablet,disintegrating 8 mg PO Q6H PRN (Reason: Nausea And Vomiting) RF: 0 ibuprofen 200 mg Tablet 800 mg PO TID PRN (Reason: Pain) RF: 0 Levaquin 500 mg Tablet 500 mg PO DAILY RF: 0 Excedrin Migraine 250-250-65 mg Tablet 2 tab PO PRN RF: 0 Proferrin ES 1 tab PO DAILY@07 RF: 0 escitalopram oxalate 10 mg tablet 10 mg PO DAILY@07 RF: 0 promethazine 25 mg tablet 25 mg PO Q6H PRN (Reason: nausea and vomiting) Qty: 20 RF: 0 Ativan 2 mg tablet 2 mg PO QID PRN (Reason: nausea and vomiting) Qty: 14 RF: 0 prochlorperazine maleate [Compazine] 10 mg Tablet 10 mg PO Q6H PRN (Reason: Nausea) RF: 0 Discharge Orders: Discharge ED (Routine); Ordered 11/18/20 Ordered By: Cleo Pruitt Referrals: Ciera Jeff MD [Primary Care Provider] - Activity Restrictions/Additional Instructions: As we discussed case management should set you up with your appointment for orthopedics. You need to walk with a walker at all times to avoid placing full weight on your fracture. I have prescribed you tramadol and oxycodone. As we discussed do not use both of these medications together-you may choose whichever one you feel adequately controls your pain. As we discussed if your pain is still not controllable you need to return to the emergency department and we can admit you for pain control. 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 Maloney Tatum Surgical History H/O colectomy Diverting colostomy placement History of appendectomy History of bilateral tubal ligation History of bladder surgery S/P ureteral stent placement Placed in August 2019 and removed in September 2019 secondary to severe intolerable discomfort. Sounds like metallic stents. Family History Other CAD (coronary artery disease) Denies family history of Diabetes Hyperlipidemia Cancer Hypertension Social History Smoking and tobacco status: former smoker Alcohol intake: current Alcohol intake frequency: holidays/special occasions only Household members: family Housing: House Course Vital Signs: Vital signs: Vital Signs Temperature 99.0 F 11/18/20 13:28 Pulse Rate 71 11/18/20 17:05 Respiratory Rate 14 11/18/20 17:05 Blood Pressure 146/80 11/18/20 17:05 Pulse Oximetry 98 11/18/20 17:05 MDM - Back Pain/Injury MDM Narrative: Medical decision making narrative: Kindly review the Physician Waiter/Waitress Head's note for a complete history and physical exam. I agree with her findings and medical decision making. Patient with a sacral fracture. She has had this pain for about one month. She is discharged to / with her PCP and ortho. Discharge Plan Discharge Patient Disposition: Home Clinical Impression: Sacral insufficiency fracture Condition: Stable Prescriptions: New tramadol 100 mg tablet 100 mg PO Q8H PRN (Reason: pain) Qty: 30 RF: 0 oxycodone 10 mg tablet 10 mg PO Q6H PRN (Reason: pain) Qty: 20 RF: 0 No Action diphenoxylate-atropine 2.5-0.025 mg tablet 1 tab PO DAILY RF: 0 prednisone 20 mg tablet 20 mg PO DAILY Qty: 15 RF: 0 loperamide 2 mg Tablet 4 mg PO BID RF: 0 dexamethasone 4 mg tablet See Rx Instructions .ROUTE .COMPLEX RF: 0 oxycodone 10 mg tablet 10 mg PO Q4H PRN (Reason: Pain) RF: 0 multivitamin Tablet 1 tab PO DAILY@07 RF: 0 ondansetron 8 mg tablet,disintegrating 8 mg PO Q6H PRN (Reason: Nausea And Vomiting) RF: 0 ibuprofen 200 mg Tablet 800 mg PO TID PRN (Reason: Pain) RF: 0 Levaquin 500 mg Tablet 500 mg PO DAILY RF: 0 Excedrin Migraine 250-250-65 mg Tablet 2 tab PO PRN RF: 0 Proferrin ES 1 tab PO DAILY@07 RF: 0 escitalopram oxalate 10 mg tablet 10 mg PO DAILY@07 RF: 0 promethazine 25 mg tablet 25 mg PO Q6H PRN (Reason: nausea and vomiting) Qty: 20 RF: 0 Ativan 2 mg tablet 2 mg PO QID PRN (Reason: nausea and vomiting) Qty: 14 RF: 0 prochlorperazine maleate [Compazine] 10 mg Tablet 10 mg PO Q6H PRN (Reason: Nausea) RF: 0 Discharge Orders: Discharge ED (Routine); Ordered 11/18/20 Ordered By: Cleo Pruitt Referrals: Ciera Jeff MD [Primary Care Provider] - Activity Restrictions/Additional Instructions: As we discussed case management should set you up with your appointment for orthopedics. You need to walk with a walker at all times to avoid placing full weight on your fracture. I have prescribed you tramadol and oxycodone. As we discussed do not use both of these medications together-you may choose whichever one you feel adequately controls your pain. As we discussed if your pain is still not controllable you need to return to the emergency department and we can admit you for pain control. Coding Level of Care Code ED Supervisor Gas Meter Repair for Michael Lilly Exam Detailed
--- NOTE | 2020-11-18 14:57 | CT_ITS ---
WS: [id number] CT LUMBAR SPINE TECHNIQUE: Noncontrast CT of the lumbar spine with coronal and sagittal reformatted images. CLINICAL INFORMATION: severe back pain; CA pt COMPARISON: None. DLP: 1755.[address] scans at [facility] use at least one of these dose optimization techniques: automat ed exposure control; mA and/or kV adjustment per patient size (includes targeted exams where dose is matched to clinical indication); or iterative reconstruction. FINDINGS: Mild lumbar curve. No acute compression. Disc space narrowing worse at T12-1 and L2-3. Vacuum disc ph enomenon L2-3 with degenerative endplate-type changes. No high-grade central canal stenosis. Postoper ative changes partially visualized in the pelvis. Tiny nondisplaced fractures involving the left sacrum and sacral ala with evidence of sclerosis. Jonny mmend correlation for recent trauma or insufficiency fractures. L1-L2: Mild annular bulging. Spinal canal and foramen are patent. Mild facet arthropathy. L2-L3: Slight retrolisthesis L2 on L3. Moderate facet arthropathy. Spinal canal and foramen are paten t. L3-L4: Mild annular bulging. Moderate facet arthropathy. Spinal canal and foramen are patent. L4-L5: Mild annular bulging with slight effacement of the ventral thecal sac. Mild right and no signi ficant left foraminal narrowing. Spinal canal is patent. Moderate facet arthropathy. L5-S1: Mild disc bulging with a shallow right pericentral protrusion. Slight narrowing of the right s ubarticular recess. Mild right and no significant left foraminal narrowing. Moderate facet arthropath y. CT/CT lumbar spine wo con* [id number] IMPRESSION: 1. Mild lumbar curve. No acute compression. No high-grade central canal stenos is. 2. No evidence of bony metastatic disease in the lumbar spine. 3. Tiny nondisplaced fractures involving the left sacrum and sacral ala with e vidence of sclerosis. Recommend correlation for recent trauma or insufficiency fractures 4. Mild annular bulging L4-5 with mild right L4-5 foraminal narrowing. 5. Shallow right pericentral protrusion L5-S1 with slight narrowing of the rig ht subarticular recess. Mild right L5-S1 foraminal narrowing. 6. Moderate facet arthropathy L4-L5 and L5-S1. 7. Partially visualized postoperative changes in the pelvis.
--- NOTE | 2020-11-18 15:07 | CT_ITS ---
WS: [id number] NONCONTRAST CT OF THE PELVIS TECHNIQUE: Noncontrast CT of the pelvis with coronal and sagittal reformatted images. CLINICAL INFORMATION: severe pain; CA patient COMPARISON: None. DLP: 338.[address] scans at [facility] use at least one of these dose optimization techniques: automat ed exposure control; mA and/or kV adjustment per patient size (includes targeted exams where dose is matched to clinical indication); or iterative reconstruction. FINDINGS: Tiny nondisplaced fracture involving the left sacrum at the sacral inlet with sclerosis. Additional s clerosis involving the left sacral ala. Additional nondisplaced fracture with cortical step-off invol ving the left SI joint in the lower sacrum eccentric to the left. Recommend correlation for recent tr auma versus sacral insufficiency fractures. Normal visualized pubic rami. Normal acetabulum. Both hips are normal in appearance. Postoperative ch anges in the pelvis. Partially visualized colostomy in the left lower quadrant. CT/CT bony pelvis [id number] IMPRESSION: Subtle nondisplaced left sacral fractures described above with extension to the left SI joint inferiorly.Recommend correlation for recent trauma versus sacral insufficiency fractures.
[2020-11-18] MEDS: morphine 4 mg/mL SDV 1 mL IM (15:20)
--- NOTE | 2020-11-18 15:26 | PC.NURSE ---
pt to ct scan by wheelchair with tech
[2020-11-18 17:05] VITALS: BP 146/80; PULSE 71; RESP 14; O2SAT 98
--- NOTE | 2020-11-19 08:57 | DCPLANNER ---
hris manager had message to schedule a follow up appointment for patient with ortho for insufficiency fracture. hris manager called the ortho clinic, spoke with Margaux, gave clinic patients information. hris manager was told that patients information would be printed and reviewed. Clinic will call patient with appointment information. hris manager also had message to call the cancer treatment center and let Dr. Hickey know of patients ER visit and the reason for the visit. hris manager called oncology, spoke with Shobha and let the clinic know that patient was seen in the ER and was referred to orthopedics.
--- NOTE | 2020-11-20 10:45 | DCPLANNER ---
Patient has a follow up appointment scheduled for Tuesday, November 24, [address] at 2:[address] Muir at [facility]. Clinic will call patient with appointment information.
--- NOTE | 2020-12-03 11:41 | DCPLANNER ---
Patient had a follow up appointment scheduled for 11.24.[address] Muir at [facility] - patient did attend appointment.
== END 2020-11-18 17:00 | disposition home or self-care (01) ==
PROVIDERS: Emergency Provider Physician Assistant; PCP Family Medicine
DX: M48.48XA Fatigue fracture of vertebra, sacral and sacrococcygeal region, initial encounter for fracture (principal); C20 Malignant neoplasm of rectum; Z93.3 Colostomy status; Z87.891 Personal history of nicotine dependence
CPT/HCPCS: 72131; 72192; 96372; 99283; J2270

== ENCOUNTER 2020-11-26 05:41 | Outpatient (RCR) | payer OTHER, SELFPAY ==
[2020-11-25 09:14] LABS: Basophils % 0.2 %; Hematocrit 40.1 % (37.0-47.0); Hemoglobin 12.5 g/dL (11.5-15.3); Lymphocytes # 0.8 10^3/uL (0.8-4.8); Lymphocytes % 14.2 %; Mean Corpuscular HGB Conc 31.2 g/dL (30.0-36.0); Mean Corpuscular Hemoglobin 29.7 pg (28.0-34.0); Mean Corpuscular Volume 95.2 fL (81-99); Monocytes # 0.2 10^3/uL (0.2-0.9); Monocytes % 3.1 %; Neutrophils # 4.57 10^3/uL (1.8-7.7); Neutrophils % 82.1 %; Nucleated Red Blood Cells % 0 %; Platelet Count 243 10^3/cmm (130-400); Red Blood Count 4.21 10^6/uL (4.1-5.3); Red Cell Distribution Width 15.3 % (12.1-15.1); White Blood Count 5.6 10^3/uL (4.0-10.0)
[2020-11-25 09:31] LABS: Alanine Aminotransferase 9 U/L (0-33); Albumin Level 3.9 g/dL (3.5-5.2); Alkaline Phosphatase 120 IU/L (35-105); Anion Gap 14.1 (5-19); Aspartate Amino Transferase 16 U/L (0-32); Blood Urea Nitrogen 15 mg/dL (8-23); Carbon Dioxide 30 mmol/L (22-29); Chloride 100 mmol/L (98-107); Globulin 2.7 g/dL (1.3-4.6); Glucose 146 mg/dL (65-115); Osmolality Calculated 293 mOsm/kg (285-295); Potassium 4.1 mmol/L (3.5-5.1); Sodium 140 mmol/L (136-145); Total Bilirubin 0.2 mg/dL (0.15-1.2); Total Protein 6.6 g/dL (6.6-8.7)
[2020-11-26] MEDS: sodium chloride 0.9% 250 ML 75 ML IV (11:43)
[2020-11-26] MEDS: famotidine 20 mg/2 mL INJ IVP (11:43)
[2020-11-26] MEDS: ondansetron 2 mg/ML SDV 2 mL 8 MG IVP (11:45)
[2020-11-26] MEDS: atropine 1 mg/mL SDV 1 mL 0.4 MG IV (11:47)
--- NOTE | 2020-11-26 15:07 | ONC FU_ITS ---
Dr. Hickey follow up note Patient: Kathryn Brice Unit #: [id number]: [id number] Dicatated By: Filemon Hickey M.D.Date of Visit:Nov 26, 2020 Onc Med Follow-up/Prog Note History of Present Illness: Ms. Brice is a 60-year-old female who was admitted to hospital with abdominal pain, nausea/vomiting and s 20 pound weight loss over the period of 3 months on May 05, 2019. She underwent CT scan of abdomen which showed rectal wall thickening and a mass. A CT scan of abdomen done on May 06, 2019 showed sigmoid pneumatosis consistent with perforation. Ms. Brice underwent flex sigmoidoscopy on May 08, 2019 subsequently diagnostic laparoscopy converted to laparotomy with Molina procedure by Dr. Burch. The pathology showed moderately differentiated invasive adenocarcinoma from the rectal mass biopsy. MMR staining retained by IHC, 11 lymph nodes were negative for metatatic disease. On May 14, 2019 follow-up CT scan of abdomen pelvis showed postoperative changes with fluid and edema adjacent from Rebecca pouch consistent with a leak with peritonitis and ileus. Unchanged rectal mass with a perirectal, perisacral, left common iliac and retroperitoneal lymphadenopathy. Fluid drained by interventional radiologist on May 14, 2019 with the drainage catheter removed on May 17, 2019. On May 27, 2019, pelvic MRIs showed 5.5 cm high rectal mass with multiple mesorectal and inferior mesenteric artery lymph nodes e.g. T4, N2. Postsurgical changes with consistent with dehiscence of Rebecca's pouch, enlarged left common iliac node. On June 07, 2019 CT scan of chest showed 2 1 to 2 cm nodules within lateral basal segment of left lower lobe and and 1.7 x 1.3 right hilar lymph node. Ms Brice was placed on the Epacodostat clinical trial with a short course radiation therapy 3500 rad from June 10-2019. A CT scan of chest abdomen pelvis done on June 13, 2019 showed resolution of pelvic collection with residual soft tissue thickening along Molina's pouch, stable rectal mass and stable LAD. She was started on cycle 1 day 1 CAPOX on July 01, 2019. Patient was admitted to [facility] on July 14-2019 for abdominal pain, nausea vomiting likely radiation enteritis versus chemo toxicity from oral Xeloda but less likely immunotherapy related (epacodostat). She was restarted on Epacodostat on July 18, 2019. CT scan of abdomen pelvis done on July 29, 2019 showed dehiscence of Molina's pouch with fistulization to the adjacent small bowel, and increasing small bowel and rectal wall thickening and edema. Patient was admitted to [facility] again on July 29, 2019 through August 07, 2019 for abdominal pain, flex sig done on July 30, 2019 showed partially obstructing ulcerated mass with retained fluid in the Rebecca pouch with the proximal aspect of Rebecca pouch is ulcerated, status post dilatation and transanal drainage. CT scan of abdomen pelvis done on August 20, 2019 showed resolution of pelvic fluid collection with a fistulous tract between Rebecca pouch and pelvic pelvic small bowel loop, improved enteritis, new moderate left hydro and mild right hydronephrosis. On August 30, 2019 underwent flex sig with placement of transanal drainage and bilateral ureteral stents. 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 CT/MRI of abdomen pelvis done on December 02, 2019 showed treatment response, reduction in rectal mass., Treatment with 5-FU alone was given on December 16, 2019 followed by break due to to hospitalization for small bowel obstruction and then scheduled for surgery. And SBO resolved on conservative management and patient was discharged home on TPN. On January 17, 2020 underwent colonoscopy with ascending colon snare polypectomy, exploratory laparotomy, extensive lysis of adhesions, completion proctectomy, takedown of end colostomy with creation of colonic J-pouch and end-to-end anastomosis. Cystoscopy and stent placement by urology team, patient was admitted to [facility] on January 25 2 January 30, 2020 with fever, pain, bloody ostomy, she underwent ileoscopy on January 28, 2020 it was normal and no bleeding was seen Patient was seen by colorectal surgery on February 11, 2020 and recommended to complete 6 months of chemotherapy and then reverse in 3 months following completion of chemotherapy. Patient completed 11 cycles of total chemotherapy on April 06, 2020. And during follow-up on June 12, 2020 she underwent excision of anal lesion, pathology consistent with metastatic adenocarcinoma. No rectovaginal fistula. On June 19, 2020 reexcision of perianal adenocarcinoma with additional margin and pathology positive for adenocarcinoma with clear margin. Patient underwent CT scan of chest abdomen pelvis on July 24, 2020 which showed pericecal nodule worrisome for metastatic disease and fluid collection in the presacral space she was admitted to [facility] from July 20- for possible presacral abscess seen on the scan which was drained and culture came back negative but pathology showed metastatic adenocarcinoma and patient was started on systemic chemotherapy with FOLFIRI, which she tolerated well and her second cycle was given on August 17, 2020, patient is considering switching her care to [place] because of inconvenience of traveling back and forth to [place]. She started with third cycle of FOLFIRI here in [place] on 09/10/2020. Ms Brice went to [facility] on 09/17/2020 with abdominal pain, nausea vomiting, lab work-up including urine analysis showed no abnormality, amylase was within normal range. Patient treated symptomatically and improved. As per patient, she stayed dehydrated all the time so she drink lots of water and her nausea vomiting started when she was working her yard, she thinks that she may have overdone it. She also has history of migraine headaches. She completed cycle 4 on September 24, 2020. Ms. Brice is here today for follow-up and consideration of cycle 6 FOLFIRI. She was seen Helena Johnson NP at [facility] [place] [facility] oncology on 10/05/2020. She had been reporting headache after chemotherapy and lip tingling for the past 3 weeks. She is getting FOLFIRI treatment. She has had no trouble with her ostomy output and was not having abdominal pain. 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 Improved presacral fluid collection with thin residual rim-enhancing collection. Stable omental thickening without discrete nodularity. No definite CT evidence of metastatic disease in the chest. The recommendation was to proceed with FOLFIRI and reimage her in 6 weeks to reassess for continued progression. Her CEA on 10/05/2020 was 5.5. It was recommended that she have a brain MRI to rule out metastasis given that she has headache after chemotherapy and also has neuropathy in her lips. We did arrange this for her. However I am suspicious that this may be related to her premed of palonosetron as it is a common side effect to have headache after treatment. She will return to [place] in 6 weeks for follow-up and repeat scans. Her last dose was of FOLFiRI on October 08, 2020. She has no new concerns today. She did have the MRI of the brain with and without contrast on 10/21/2020. There were no evidence of metastatic disease to the brain. 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 Her had headaches have been better overall with stopping the Aloxi and relying on ondansetron as part of her premed/prechemo regimen. Patient had a follow-up CT scan of chest abdomen pelvis done At [facility] on November 16, 2020 which showed no significant change in the centrally necrotic mass with nodular peripheral enhancement centered in the presacral space representing biopsy-proven metastatic adenocarcinoma. No significant change in the presacral fluid collection and omental thickening without discrete nodularities. No evidence of metastatic disease in the chest, Patient was evaluated in oncology clinic at [facility] on November 16, 2020 at that time based on follow-up CT scan of chest abdomen pelvis finding it was recommended to continue FOLFIRI for another 3 months and then repeat CT scan of chest abdomen pelvis unless patient develops new symptoms, Came for follow-up, complaining of lower back pain for which she went to [facility] on November 18, [address] scan of the pelvis done which shows tiny nondisplaced fracture involving left sacrum at the sacral inlet with sclerosis. Additional sclerosis involving left sacral ala. Additional nondisplaced fracture with cortical step-off involving left SI joint in the lower sacrum eccentric to the left. Patient has seen orthopedics and now MRI scan of the pelvis is under consideration for further evaluation as per patient she was started on oxycodone 5 mg which was not enough so she it was increased to 10 mg along with the tramadol and also started on prednisone 30 mg daily for lower back pain but still having symptoms denies any pain radiating to lower extremities denies any urine or stool incontinence denies any trauma to her back, denies any nausea or vomiting fever chills, denies any melena hematochezia or abdominal pain Medications: Daily Vitamin 1 Tablet Oral daily, Dexamethasone 2 Tablet (of 4 mg) Oral PRN, Lexapro 1 Tablet (of 10 mg) Oral daily, Ondansetron HCl 1 Tablet (of 8 mg) Oral PRN, oxyCODONE-Acetaminophen 1 Tablet (of 5-325 mg) Oral q 4 to 6 hours PRN, traMADol HCl 1 Each (of 100 mg) Tablet Oral ac (tid) PRN Allergies: pecan nuts, Penicillins, and walnuts. Review of Systems: Review of Systems is not available for this patient. Vital Signs: Performed on Nov 26, 2020 10:00 Height - 69.00 in Weight - 149 lbs (HIGH) BSA - 1.82 sq.m BMI - 22.00 Temperature - 97.5 F (LOW) Pulse - 77 /min Respiration - 18 /min BP - 110/69 mm(hg) O2 Sat - 95 % (LOW) Pain - 6 Performance Status: 1 - No physically strenuous activity, but ambulatory and able to carry out light or sedentary work (e.g. office work, light house work). (ECOG) Physical Examination: ENMT - No mouth sores, no thrush, no jaundice, Respiratory - Lungs are clear to auscultation, Cardiovascular - Regular rate and rhythm of heart, Abdomen - Soft, bowel sounds present, Colostomy site clear, Extremities - No visible edema. Lab/Imaging: Test performed on Oct 22, 2020 12:15 WBC 5.3 10 3/uL RBC 3.71 10 6/uL HGB 11.1 g/dL HCT 35.8 % MCV 96.5 fL MCH 29.9 pg MCHC 31.0 g/dL RDW 17.0 % Platelet Count 191 10 3/cmm MPV 9.9 fL Neutrophils 3.21 10 3/uL Lymphocytes 1.2 10 3/uL Monocytes 0.5 10 3/uL Eosinophils 0.4 10 3/uL Basophils 0.0 10 3/uL Neutrophil % 60.7 % Lymphocyte % 21.8 % Monocyte % 8.5 % Eosinophil % 7.8 % Basophils % 0.8 % NRBC % 0 % Test performed on Oct 21, 2020 10:16 Sodium 139 mmol/L Potassium 4.2 mmol/L Chloride 100 mmol/L CO2 30 mmol/L Anion Gap 13.2 BUN 16 mg/dL Creatinine 0.7 mg/dL Cr Clearance (Est) 83.2300 mL/min eGFR 85.4 mL/min Glucose 71 mg/dL Osmolality - Calculated 288 mOsm/kg Calcium 9.0 mg/dL Protein, Total 6.1 g/dL Albumin 4.1 g/dL Globulin 2.0 g/dL Bilirubin, Total 0.2 mg/dL ALT (SGPT) 10 U/L AST (SGOT) 18 U/L Alkaline Phosphatase 100 IU/L Impression: Recurrent rectal cancer per presacral biopsy done in June 2020 History of stage IIIc, T4 N2 M0 locally advanced rectal adenocarcinoma presenting with perforation diagnosed in early 2019 Status post clinical trial with Epacodostat/capox,, patient developed colitis later on she was switched to FOLFOX on September 09, 2019, oxaliplatin was discontinued after third cycle on October 07, 2019 subsequently continue with 5-FU alone till April 06, 2020, On June 12, 2020 underwent excision of anal lesion which was consistent with metastatic adenocarcinoma and on June 19, 2020 underwent reexcision of perianal adenocarcinoma with clear margin, patient was started on FOLFIRI July 19, 2020 at [facility]. She continues to followup with her physician there but is receiving her treatments locally.Follow-up CT scan of chest abdomen pelvis done on November 16, 2020 showed no significant change in the centrally necrotic mass with nodular peripheral enhancement centered in the presacral space representing biopsy-proven metastatic adenocarcinoma. No significant change in the presacral fluid collection and omental thickening without discrete nodularities. No evidence of metastatic disease in the chest, was recommended to continue FOLFIRI for 3 more months and then repeat scans History of DVT,, Treated with Eliquis, now stopped Plan: . Discussed with patient regarding her labs white blood count 5.6 hemoglobin 12.5 hematocrit 40.1 platelets 243,000 CMP within normal limits except glucose 146 and alk phos 120 Clinically, patient doing reasonably well now in mild to moderate distress due to lower back pain for which she is being treated with oxycodone 10 mg 4 to 6-hour as needed and tramadol as well as prednisone 30 mg p.o. daily, at this point will discontinue prednisone and switch her to dexamethasone 10 mg loading dose followed by 4 mg every 6 hours for 3 days then 4 mg every 8 hours for 3 days then 4 mg twice a day and then stop in the meantime orthopedics is evaluating her. Patient was advised to continue pain medication as recommended and in case there is a worsening of symptoms or urine or stool incontinence, she need to go to hospital immediately In the meantime , As per follow-up CT scan of chest abdomen pelvis finding, which was done on November 16, 2020, patient has stable disease so we will continue with FOLFIRI for another 3 months then repeat scans at [facility] so we will proceed with her next cycle of chemotherapy with FOLFIRI and then she will return to clinic in 2 weeks with CBC CMP Signed By: Filemon Hickey M.D. <<Signature on File>>
== END 2020-11-28 23:59 | disposition home or self-care (01) ==
LOC: ONCMED 05:41
PROVIDERS: PCP Family Medicine; Visit Provider Internal Medicine Hematology & Oncology
DX: Z51.11 Encounter for antineoplastic chemotherapy (principal); C20 Malignant neoplasm of rectum; K52.9 Noninfective gastroenteritis and colitis, unspecified; Z86.718 Personal history of other venous thrombosis and embolism; Z79.01 Long term (current) use of anticoagulants; Z79.899 Other long term (current) drug therapy
CPT/HCPCS: 36415; 36591; 72170; 80053; 85025; 96367; 96368; 96375; 96413; 96415; 99215; J0461; J0640; J1100; J2405; J3490; J7050; J9190; J9206

== ENCOUNTER 2020-11-30 11:25 | Outpatient (CLI) | payer OTHER, SELFPAY ==
--- NOTE | 2020-11-30 12:06 | MR_ITS ---
WS: [id number] MRI LUMBAR SPINE WITH CONTRAST TECHNIQUE: Sagittal T1, T2 and STIR imaging. Axial T1 and T2 imaging. Post gadolinium imaging was obt ained. CLINICAL INFORMATION: LOW BACK PAIN COMPARISON: November 18, 2020 FINDINGS: Lumbar scoliosis. No acute compression. No high-grade central canal stenosis. Partially visualized di ffuse edema within the S2 vertebral body and extending into the left greater than right sacral ala. D iffuse edema in the left partially visualized sacrum extending to the sacrococcygeal junction. Modera te diffuse presacral edema. Findings most likely due to insufficiency fractures versus recent trauma. Findings not typical for metastatic disease. This could be followed up with MRI of the sacrum withou t and with gadolinium enhancement. Slight retrolisthesis L2 on L3. L1-L2: Mild annular bulging. Spinal canal and foramen are patent. L2-L3: Mild disc bulging with slight effacement of ventral thecal sac. Mild facet arthropathy. Spinal canal and foramen are patent. L3-L4: Mild annular bulging. Moderate facet arthropathy. Mild right and no significant left foraminal narrowing. L4-L5: Mild annular bulging with slight effacement of the ventral thecal sac. Mild right and no signi ficant left foraminal narrowing. Moderate facet arthropathy. L5-S1: Mild disc bulging with slight effacement of ventral thecal sac. Moderate facet arthropathy. Fo ramen are patent. MR/MR lumbar spine wo/w con [id number] IMPRESSION: 1. Diffuse edema involving the S2 vertebral body extending into the left great er than right sacral ala to the sacrococcygeal junction. Moderate presacral fuentes ma. Findings likely due to sacral insufficiency fractures versus trauma. Metast atic disease unlikely. This could be followed up with MRI of the sacrum without and with gadolinium enhancement in 4-6 weeks. Sacrum is partially visualized o n the lumbar spine MRI today. 2. Slight retrolisthesis L2 on L3. 3. Mild right L3-4 and right L4-5 foraminal narrowing. 4. Moderate facet arthropathy L3-L5.
[2020-11-30] MEDS: gadobenate dimeglumine 20 mL vial IV (13:06)
== END 2020-11-30 11:26 | disposition home or self-care (01) ==
PROVIDERS: PCP Family Medicine; Visit Provider Family Medicine
DX: M54.5 Low back pain (principal); M47.816 Spondylosis without myelopathy or radiculopathy, lumbar region; R60.0 Localized edema
CPT/HCPCS: 72158; A9577

== ENCOUNTER 2020-12-09 06:42 | Outpatient (RCR) | payer OTHER, SELFPAY ==
[2020-12-09 15:54] LABS: Basophils % 0.1 %; Eosinophils # 0.1 10^3/uL (0.0-0.8); Eosinophils % 1.5 %; Hematocrit 43.9 % (37.0-47.0); Lymphocytes # 0.8 10^3/uL (0.8-4.8); Lymphocytes % 9.1 %; Mean Corpuscular HGB Conc 31.9 g/dL (30.0-36.0); Mean Corpuscular Hemoglobin 30.4 pg (28.0-34.0); Mean Corpuscular Volume 95.4 fL (81-99); Mean Platelet Volume 8.8 fL (7.4-10.4); Monocytes # 0.5 10^3/uL (0.2-0.9); Monocytes % 5.8 %; Nucleated Red Blood Cells % 0 %; Platelet Count 154 10^3/cmm (130-400); Red Cell Distribution Width 17.3 % (12.1-15.1); White Blood Count 9.3 10^3/uL (4.0-10.0)
[2020-12-09 16:27] LABS: Alanine Aminotransferase 16 U/L (0-33); Albumin Level 3.7 g/dL (3.5-5.2); Alkaline Phosphatase 118 IU/L (35-105); Anion Gap 14.5 (5-19); Aspartate Amino Transferase 15 U/L (0-32); Blood Urea Nitrogen 18 mg/dL (8-23); Calcium 8.1 mg/dL (8.5-10.5); Carbon Dioxide 28 mmol/L (22-29); Chloride 98 mmol/L (98-107); Globulin 2.2 g/dL (1.3-4.6); Glucose 100 mg/dL (65-115); Osmolality Calculated 284 mOsm/kg (285-295); Potassium 4.5 mmol/L (3.5-5.1); Sodium 136 mmol/L (136-145); Total Bilirubin 0.4 mg/dL (0.15-1.2); Total Protein 5.9 g/dL (6.6-8.7)
== END 2020-12-09 20:00 | disposition home or self-care (01) ==
LOC: ONCMED 06:42
PROVIDERS: PCP Family Medicine; Visit Provider Internal Medicine Hematology & Oncology
DX: C20 Malignant neoplasm of rectum (principal); Z79.899 Other long term (current) drug therapy
CPT/HCPCS: 36591; 80053; 85025

== ENCOUNTER 2020-12-09 20:18 | Emergency (ER) | payer OTHER, SELFPAY ==
[2020-12-09 20:25] VITALS: PULSE 94; RESP 20; TEMP 37.2; O2SAT 96; BMI 21.9
--- NOTE | 2020-12-09 22:33 | ED_ITS ---
HPI - Weakness General: Chief complaint: Weakness Stated complaint: Cancer Pt\ Dehydrated Nausea Time Seen by Provider: 12/09/20 22:19 History of Present Illness: HPI Narrative: 60-year-old female comes in today with complaints of malaise. Patient appears well. Patient appears no acute distress. Patient reports she had a blood drawn this morning at the oncologist office and then went to all these and at that time she started feeling worse and went home. Patient reports taking a oxycodone at about 5:00 this afternoon. Patient reports some nausea and dyspepsia. 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 Maloney Southworth Surgical History H/O colectomy Diverting colostomy placement History of appendectomy History of bilateral tubal ligation History of bladder surgery S/P ureteral stent placement Placed in August 2019 and removed in September 2019 secondary to severe intolerable discomfort. Sounds like metallic stents. Family History Other CAD (coronary artery disease) Denies family history of Diabetes Hyperlipidemia Cancer Hypertension Social History Smoking and tobacco status: former smoker Alcohol intake: current Alcohol intake frequency: holidays/special occasions only Household members: family Housing: House Physical Exam Const: COMMON NORMALS: no acute distress and patient oriented x3 GENERAL APPEARANCE: cooperative HENMT: COMMON NORMALS: normocephalic and Normal external nose present HEAD & SCALP: normal to inspection and normocephalic NOSE: Normal external nose present MOUTH: Normal oral and palatal mucosa present Eye: GENERAL EYE: appearance normal, both eyes and all related structures Neck/C-Spine: COMMON NORMALS: full ROM Chest: COMMONS NORMALS: normal inspection of the chest Resp: COMMON NORMALS: normal respiratory effort EFFORT & INSPECTION: Yes able to speak in complete sentences Cardio: COMMON NORMALS: regular rate and regular rhythm RATE: regular rate RHYTHM: regular rhythm GI: COMMON NORMALS: Soft to palpation and non-tender PALPATION: Yes Soft to palpation : COMMON NORMALS: Yes no CVA tenderness BLADDER/KIDNEY EXAM: Yes no CVA tenderness Back/Pelvis: COMMON NORMALS: no CVA tenderness LUMBAR SPINE/LOWER BACK: Yes lumbar spinal tenderness Lumbar spinal tenderness location: L5 Extremity: COMMON NORMALS: normal to inspection Neuro: COMMON NORMALS: patient oriented x3 and moves all extremities Psych: COMMON NORMALS: mental status grossly normal and cooperative Skin: COMMON NORMALS: no rashes or lesions noted GENERAL SKIN EXAM: no rash es or lesions noted Course Vital Signs: Vital signs: Vital Signs Temperature 98.9 F 12/09/20 20:25 Pulse Rate 75 12/09/20 23:27 Respiratory Rate 16 12/09/20 23:27 Blood Pressure 115/72 12/09/20 23:27 Pulse Oximetry 95 12/09/20 23:27 MDM - Weakness MDM Narrative: Medical decision making narrative: 60-year-old female is presently being treated for: Rectal cancer came in today for feeling of malaise. Patient had some lab done at the oncologist today. Patient reports after doing that she just has not felt well most of the day. Patient reports none significant abnormalities. Patient reports no difficulty with urination. Patient does have some low back pain which is chronic for her. Exam notes normal vital signs, respirations are even, lungs are clear to auscultation, abdomen soft nontender. Patient is alert and oriented. Differential diagnosis includes but not limited to heat exhaustion, mild dehydration, viral syndrome. I reviewed the labs from earlier today and they were normal. I went ahead and gave patient a liter of IV normal saline and 4 mg of ondansetron IV. Patient had improvement in symptoms and appeared well with normal vital signs. Recommended patient just follow-up with primary care tomorrow or return to the ER for worsening symptoms. Patient reported understanding agreed to plan. Discharge Plan Discharge Patient Disposition: Home Clinical Impression: Dehydration, mild Condition: Stable Prescriptions: No Action diphenoxylate-atropine 2.5-0.025 mg tablet 1 tab PO DAILY RF: 0 prednisone 20 mg tablet 20 mg PO DAILY Qty: 15 RF: 0 loperamide 2 mg Tablet 4 mg PO BID RF: 0 dexamethasone 4 mg tablet See Rx Instructions .ROUTE .COMPLEX RF: 0 oxycodone 10 mg tablet 10 mg PO Q4H PRN (Reason: Pain) RF: 0 multivitamin Tablet 1 tab PO DAILY@07 RF: 0 ondansetron 8 mg tablet,disintegrating 8 mg PO Q6H PRN (Reason: Nausea And Vomiting) RF: 0 ibuprofen 200 mg Tablet 800 mg PO TID PRN (Reason: Pain) RF: 0 Levaquin 500 mg Tablet 500 mg PO DAILY RF: 0 Excedrin Migraine 250-250-65 mg Tablet 2 tab PO PRN RF: 0 Proferrin ES 1 tab PO DAILY@07 RF: 0 escitalopram oxalate 10 mg tablet 10 mg PO DAILY@07 RF: 0 promethazine 25 mg tablet 25 mg PO Q6H PRN (Reason: nausea and vomiting) Qty: 20 RF: 0 Ativan 2 mg tablet 2 mg PO QID PRN (Reason: nausea and vomiting) Qty: 14 RF: 0 prochlorperazine maleate [Compazine] 10 mg Tablet 10 mg PO Q6H PRN (Reason: Nausea) RF: 0 tramadol 100 mg tablet 100 mg PO Q8H PRN (Reason: pain) Qty: 30 RF: 0 oxycodone 10 mg tablet 10 mg PO Q6H PRN (Reason: pain) Qty: 20 RF: 0 Discharge Orders: Discharge ED (Routine); Ordered 12/09/20 Ordered By: Franklin Granados Discharge Diet: Usual diet Discharge Activity: Increase activity as tolerated Patient Instructions: Opioid Safety Activity Restrictions/Additional Instructions: continue with routine care, follow-up with primary care as needed. Coding Level of Care Code ED Laceworker for Michael Fwd Exam Comprehensive
[2020-12-09] MEDS: sodium chloride 0.9% 1,000 ML 999 ML IV (22:46)
[2020-12-09] MEDS: ondansetron 2 mg/ML SDV 2 mL 4 MG IVP (22:50)
[2020-12-09 23:27] VITALS: BP 115/72; PULSE 75; RESP 16; O2SAT 95
--- NOTE | 2020-12-09 23:48 | PC.NURSE ---
patient had an accessed port on arrival (for her chemo in the am) I used this for her IV fluids today
--- NOTE | 2020-12-10 00:02 | PC.NURSE ---
flushed port with heparin flushed prior to discharge
== END 2020-12-10 00:03 | disposition home or self-care (01) ==
PROVIDERS: Emergency Provider Nurse Practitioner Family
DX: E86.0 Dehydration (principal); C20 Malignant neoplasm of rectum; Z92.21 Personal history of antineoplastic chemotherapy; Z92.3 Personal history of irradiation; Z87.891 Personal history of nicotine dependence; Z90.49 Acquired absence of other specified parts of digestive tract
CPT/HCPCS: 96361; 96374; 96375; 99283; J1642; J2405; J7030

== ENCOUNTER 2020-12-24 05:31 | Outpatient (RCR) | payer OTHER, SELFPAY ==
[2020-12-10] MEDS: atropine 1 mg/mL SDV 1 mL 0.4 MG IV (10:05)
[2020-12-10] MEDS: dextrose 5% 250 ML 75 ML IV (10:05)
[2020-12-10] MEDS: famotidine 20 mg/2 mL INJ IVP (10:06)
[2020-12-10] MEDS: ondansetron 2 mg/ML SDV 2 mL 8 MG IV (10:08)
--- NOTE | 2020-12-10 14:05 | ONC FU_ITS ---
Dr. Hickey follow up note Patient: Kathryn Brice Unit #: [id number]: [id number] Dicatated By: Filemon Hickey M.D.Date of Visit:Dec 10, 2020 Onc Med Follow-up/Prog Note History of Present Illness: Ms. Brcie is a 60-year-old female who was admitted to hospital with abdominal pain, nausea/vomiting and s 20 pound weight loss over the period of 3 months on May 05, 2019. She underwent CT scan of abdomen which showed rectal wall thickening and a mass. A CT scan of abdomen done on May 06, 2019 showed sigmoid pneumatosis consistent with perforation. Ms. Brice underwent flex sigmoidoscopy on May 08, 2019 subsequently diagnostic laparoscopy converted to laparotomy with Molina procedure by Dr. Burch. The pathology showed moderately differentiated invasive adenocarcinoma from the rectal mass biopsy. MMR staining retained by IHC, 11 lymph nodes were negative for metatatic disease. On May 14, 2019 follow-up CT scan of abdomen pelvis showed postoperative changes with fluid and edema adjacent from Rebecca pouch consistent with a leak with peritonitis and ileus. Unchanged rectal mass with a perirectal, perisacral, left common iliac and retroperitoneal lymphadenopathy. Fluid drained by interventional radiologist on May 14, 2019 with the drainage catheter removed on May 17, 2019. On May 27, 2019, pelvic MRIs showed 5.5 cm high rectal mass with multiple mesorectal and inferior mesenteric artery lymph nodes e.g. T4, N2. Postsurgical changes with consistent with dehiscence of Rebecca's pouch, enlarged left common iliac node. On June 07, 2019 CT scan of chest showed 2 1 to 2 cm nodules within lateral basal segment of left lower lobe and and 1.7 x 1.3 right hilar lymph node. Ms Brice was placed on the Epacodostat clinical trial with a short course radiation therapy 3500 rad from June 10-2019. A CT scan of chest abdomen pelvis done on June 13, 2019 showed resolution of pelvic collection with residual soft tissue thickening along Molina's pouch, stable rectal mass and stable LAD. She was started on cycle 1 day 1 CAPOX on July 01, 2019. Patient was admitted to [facility] on July 14-2019 for abdominal pain, nausea vomiting likely radiation enteritis versus chemo toxicity from oral Xeloda but less likely immunotherapy related (epacodostat). She was restarted on Epacodostat on July 18, 2019. CT scan of abdomen pelvis done on July 29, 2019 showed dehiscence of Molina's pouch with fistulization to the adjacent small bowel, and increasing small bowel and rectal wall thickening and edema. Patient was admitted to [place] again on July 29, 2019 through August 07, 2019 for abdominal pain, flex sig done on July 30, 2019 showed partially obstructing ulcerated mass with retained fluid in the Rebecca pouch with the proximal aspect of Rebecca pouch is ulcerated, status post dilatation and transanal drainage. CT scan of abdomen pelvis done on August 20, 2019 showed resolution of pelvic fluid collection with a fistulous tract between Rebecca pouch and pelvic pelvic small bowel loop, improved enteritis, new moderate left hydro and mild right hydronephrosis. On August 30, 2019 underwent flex sig with placement of transanal drainage and bilateral ureteral stents. 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 CT/MRI of abdomen pelvis done on December 02, 2019 showed treatment response, reduction in rectal mass., Treatment with 5-FU alone was given on December 16, 2019 followed by break due to to hospitalization for small bowel obstruction and then scheduled for surgery. And SBO resolved on conservative management and patient was discharged home on TPN. On January 17, 2020 underwent colonoscopy with ascending colon snare polypectomy, exploratory laparotomy, extensive lysis of adhesions, completion proctectomy, takedown of end colostomy with creation of colonic J-pouch and end-to-end anastomosis. Cystoscopy and stent placement by urology team, patient was admitted to [place] on January 25 2 January 30, 2020 with fever, pain, bloody ostomy, she underwent ileoscopy on January 28, 2020 it was normal and no bleeding was seen Patient was seen by colorectal surgery on February 11, 2020 and recommended to complete 6 months of chemotherapy and then reverse in 3 months following completion of chemotherapy. Patient completed 11 cycles of total chemotherapy on April 06, 2020. And during follow-up on June 12, 2020 she underwent excision of anal lesion, pathology consistent with metastatic adenocarcinoma. No rectovaginal fistula. On June 19, 2020 reexcision of perianal adenocarcinoma with additional margin and pathology positive for adenocarcinoma with clear margin. Patient underwent CT scan of chest abdomen pelvis on July 24, 2020 which showed pericecal nodule worrisome for metastatic disease and fluid collection in the presacral space she was admitted to [facility] from July 20- for possible presacral abscess seen on the scan which was drained and culture came back negative but pathology showed metastatic adenocarcinoma and patient was started on systemic chemotherapy with FOLFIRI, which she tolerated well and her second cycle was given on August 17, 2020, patient is considering switching her care to [place] because of inconvenience of traveling back and forth to [place]. She started with third cycle of FOLFIRI here in [place] on 09/10/2020. Ms Brice went to [facility] on 09/17/2020 with abdominal pain, nausea vomiting, lab work-up including urine analysis showed no abnormality, amylase was within normal range. Patient treated symptomatically and improved. As per patient, she stayed dehydrated all the time so she drink lots of water and her nausea vomiting started when she was working her yard, she thinks that she may have overdone it. She also has history of migraine headaches. She completed cycle 4 on September 24, 2020. Ms. Brice is here today for follow-up and consideration of cycle 6 FOLFIRI. She was seen Helena Johnson NP at [facility] oncology on 10/05/2020. She had been reporting headache after chemotherapy and lip tingling for the past 3 weeks. She is getting FOLFIRI treatment. She has had no trouble with her ostomy output and was not having abdominal pain. 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 Improved presacral fluid collection with thin residual rim-enhancing collection. Stable omental thickening without discrete nodularity. No definite CT evidence of metastatic disease in the chest. The recommendation was to proceed with FOLFIRI and reimage her in 6 weeks to reassess for continued progression. Her CEA on 10/05/2020 was 5.5. It was recommended that she have a brain MRI to rule out metastasis given that she has headache after chemotherapy and also has neuropathy in her lips. We did arrange this for her. However I am suspicious that this may be related to her premed of palonosetron as it is a common side effect to have headache after treatment. She will return to [place] in 6 weeks for follow-up and repeat scans. Her last dose was of FOLFiRI on October 08, 2020. She has no new concerns today. She did have the MRI of the brain with and without contrast on 10/21/2020. There were no evidence of metastatic disease to the brain. 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 Her had headaches have been better overall with stopping the Aloxi and relying on ondansetron as part of her premed/prechemo regimen. Patient had a follow-up CT scan of chest abdomen pelvis done At [place] on November 16, 2020 which showed no significant change in the centrally necrotic mass with nodular peripheral enhancement centered in the presacral space representing biopsy-proven metastatic adenocarcinoma. No significant change in the presacral fluid collection and omental thickening without discrete nodularities. No evidence of metastatic disease in the chest, Patient was evaluated in oncology clinic at [place] on November 16, 2020 at that time based on follow-up CT scan of chest abdomen pelvis finding it was recommended to continue FOLFIRI for another 3 months and then repeat CT scan of chest abdomen pelvis unless patient develops new symptoms, Came for follow-up, complaining of persistent nausea, as per patient last [place] she went to [facility] with headaches dehydration and generalized weakness and fatigue she was given her IV fluid and was sent home. As per patient she still having off and on nausea but no vomiting, no diarrhea, no abdominal pain, no more headaches Medications: Daily Vitamin 1 Tablet Oral daily, Dexamethasone 2 Tablet (of 4 mg) Oral PRN, Lexapro 1 Tablet (of 10 mg) Oral daily, Ondansetron HCl 1 Tablet (of 8 mg) Oral PRN, oxyCODONE-Acetaminophen 1 Tablet (of 5-325 mg) Oral q 4 to 6 hours PRN, Pantoprazole Sodium 1 Tablet (of 40 mg) Tablet, enteric coated Oral daily, traMADol HCl 1 Each (of 100 mg) Tablet Oral ac (tid) PRN Allergies: pecan nuts, Penicillins, and walnuts. Review of Systems: Review of Systems is not available for this patient. Vital Signs: Performed on Dec 10, 2020 08:35 Height - 69.00 in Weight - 149.2 lbs (HIGH) BSA - 1.82 sq.m BMI - 22.03 Temperature - 98.9 F (HIGH) Pulse - 93 /min Respiration - 18 /min BP - 110/72 mm(hg) O2 Sat - 96 % Pain - 6 Fatigue - 4 Performance Status: 1 - No physically strenuous activity, but ambulatory and able to carry out light or sedentary work (e.g. office work, light house work). (ECOG) Physical Examination: ENMT - No mouth sores, no thrush, no jaundice, Respiratory - Lungs are clear to auscultation, Cardiovascular - Regular rate and rhythm of heart, Abdomen - Soft, bowel sounds present, Extremities - No visible edema. Lab/Imaging: Test performed on Oct 22, 2020 12:15 WBC 5.3 10 3/uL RBC 3.71 10 6/uL HGB 11.1 g/dL HCT 35.8 % MCV 96.5 fL MCH 29.9 pg MCHC 31.0 g/dL RDW 17.0 % Platelet Count 191 10 3/cmm MPV 9.9 fL Neutrophils 3.21 10 3/uL Lymphocytes 1.2 10 3/uL Monocytes 0.5 10 3/uL Eosinophils 0.4 10 3/uL Basophils 0.0 10 3/uL Neutrophil % 60.7 % Lymphocyte % 21.8 % Monocyte % 8.5 % Eosinophil % 7.8 % Basophils % 0.8 % NRBC % 0 % Test performed on Oct 21, 2020 10:16 Sodium 139 mmol/L Potassium 4.2 mmol/L Chloride 100 mmol/L CO2 30 mmol/L Anion Gap 13.2 BUN 16 mg/dL Creatinine 0.7 mg/dL Cr Clearance (Est) 83.2300 mL/min eGFR 85.4 mL/min Glucose 71 mg/dL Osmolality - Calculated 288 mOsm/kg Calcium 9.0 mg/dL Protein, Total 6.1 g/dL Albumin 4.1 g/dL Globulin 2.0 g/dL Bilirubin, Total 0.2 mg/dL ALT (SGPT) 10 U/L AST (SGOT) 18 U/L Alkaline Phosphatase 100 IU/L Impression: Recurrent rectal cancer per presacral biopsy done in June 2020 History of stage IIIc, T4 N2 M0 locally advanced rectal adenocarcinoma presenting with perforation diagnosed in early 2019 Status post clinical trial with Epacodostat/capox,, patient developed colitis later on she was switched to FOLFOX on September 09, 2019, oxaliplatin was discontinued after third cycle on October 07, 2019 subsequently continue with 5-FU alone till April 06, 2020, On June 12, 2020 underwent excision of anal lesion which was consistent with metastatic adenocarcinoma and on June 19, 2020 underwent reexcision of perianal adenocarcinoma with clear margin, patient was started on FOLFIRI July 19, 2020 at [place]. She continues to followup with her physician there but is receiving her treatments locally.Follow-up CT scan of chest abdomen pelvis done on November 16, 2020 showed no significant change in the centrally necrotic mass with nodular peripheral enhancement centered in the presacral space representing biopsy-proven metastatic adenocarcinoma. No significant change in the presacral fluid collection and omental thickening without discrete nodularities. No evidence of metastatic disease in the chest, was recommended to continue FOLFIRI for 3 more months and then repeat scans History of DVT,, Treated with Eliquis, now stopped Plan: . Discussed with patient regarding her labs white blood count 9.3 hemoglobin 14 hematocrit 43.9 platelets 154,000 CMP within normal limits Clinically, patient is doing reasonably well, will proceed with next cycle of FOLFIRI and then she return to clinic in 2 weeks with CBC CMP As far as persistent lower back/tailbone pain is concerned, patient has seen orthopedics in the past and referred to pain clinic management is under consideration too, at this point we will request orthopedics evaluation for evaluation of nondisplaced fracture involving left SI joint in the lower sacrum, if orthopedics recommend supportive care then refer her to pain clinic for management As far as nausea is concerned, could be due to oral iron, her hemoglobin is normal range we will check her iron studies but patient was advised to discontinue oral iron which may help her persistent nausea and she was also advised not to take ibuprofen, as per patient she is taking 800 mg for her lower back pain and she was also advised not to take multivitamin day before, on the day day after chemotherapy to minimize any gastric upset. Signed By: Filemon Hickey M.D. <<Signature on File>>
[2020-12-10 20:29] LABS: Ferritin 125 ng/mL (15-150); Iron 67 ug/dL (37-145); Percent Saturation 19.4 % (20-50); Total Iron Binding Capacity 344 mcg/dl; Unsaturated Iron Binding 277 ug/dL (112-347)
[2020-12-10 20:45] LABS: Vitamin B12 260 pg/mL (232-1245)
[2020-12-23 15:18] LABS: Basophils % 0.8 %; Eosinophils # 0.3 10^3/uL (0.0-0.8); Eosinophils % 6.6 %; Hemoglobin 12.5 g/dL (11.5-15.3); Lymphocytes # 0.9 10^3/uL (0.8-4.8); Lymphocytes % 23.9 %; Mean Corpuscular HGB Conc 31.3 g/dL (30.0-36.0); Mean Corpuscular Hemoglobin 29.9 pg (28.0-34.0); Mean Corpuscular Volume 95.7 fl (81-99); Mean Platelet Volume 9.9 fL (7.4-10.4); Monocytes # 0.3 10^3/uL (0.2-0.9); Monocytes % 8.6 %; Neutrophils # 2.33 10^3/uL (1.8-7.7); Neutrophils % 59.1 %; Nucleated Red Blood Cells % 0 %; Platelet Count 214 10^3/cmm (130-400); Red Blood Count 4.18 10^6/uL (4.1-5.3); Red Cell Distribution Width 16.5 % (12.1-15.1); White Blood Count 3.9 10^3/uL (4.0-10.0)
[2020-12-23 15:45] LABS: Alanine Aminotransferase 14 U/L (0-33); Albumin Level 3.8 g/dL (3.5-5.2); Alkaline Phosphatase 125 IU/L (35-105); Anion Gap 15.2 (5-19); Aspartate Amino Transferase 17 U/L (0-32); Blood Urea Nitrogen 12 mg/dL (8-23); Calcium 8.7 mg/dL (8.5-10.5); Carbon Dioxide 26 mmol/L (22-29); Chloride 105 mmol/L (98-107); Globulin 2.6 g/dL (1.3-4.6); Glucose 126 mg/dL (65-115); Osmolality Calculated 295 mOsm/kg (285-295); Potassium 4.2 mmol/L (3.5-5.1); Sodium 142 mmol/L (136-145); Total Bilirubin 0.2 mg/dL (0.15-1.2); Total Protein 6.4 g/dL (6.6-8.7)
[2020-12-24] MEDS: sodium chloride 0.9% 250 ML 200 ML IV (11:05)
[2020-12-24] MEDS: ondansetron 2 mg/ML SDV 2 mL 8 MG IVP (11:22)
[2020-12-24] MEDS: famotidine 20 mg/2 mL INJ IVP (11:25)
[2020-12-24] MEDS: atropine 1 mg/mL SDV 1 mL 0.4 MG IV (11:38)
--- NOTE | 2021-03-19 11:28 | ONC FU_ITS ---
Dr. Hickey follow up note Patient: Kathryn Brice Unit #: [id number]: 1960 Dicatated By: Filemon Hickey M.D.Date of Visit:Dec 24, 2020 Onc Med Follow-up/Prog Note History of Present Illness: Ms. Brice is a 60-year-old female who was admitted to hospital with abdominal pain, nausea/vomiting and s 20 pound weight loss over the period of 3 months on May 05, 2019. She underwent CT scan of abdomen which showed rectal wall thickening and a mass. A CT scan of abdomen done on May 06, 2019 showed sigmoid pneumatosis consistent with perforation. Ms. Brice underwent flex sigmoidoscopy on May 08, 2019 subsequently diagnostic laparoscopy converted to laparotomy with Molina procedure by Dr. Burch. The pathology showed moderately differentiated invasive adenocarcinoma from the rectal mass biopsy. MMR staining retained by IHC, 11 lymph nodes were negative for metatatic disease. On May 14, 2019 follow-up CT scan of abdomen pelvis showed postoperative changes with fluid and edema adjacent from Rebecca pouch consistent with a leak with peritonitis and ileus. Unchanged rectal mass with a perirectal, perisacral, left common iliac and retroperitoneal lymphadenopathy. Fluid drained by interventional radiologist on May 14, 2019 with the drainage catheter removed on May 17, 2019. On May 27, 2019, pelvic MRIs showed 5.5 cm high rectal mass with multiple mesorectal and inferior mesenteric artery lymph nodes e.g. T4, N2. Postsurgical changes with consistent with dehiscence of Rebecca's pouch, enlarged left common iliac node. On June 07, 2019 CT scan of chest showed 2 1 to 2 cm nodules within lateral basal segment of left lower lobe and and 1.7 x 1.3 right hilar lymph node. Ms Brice was placed on the Epacodostat clinical trial with a short course radiation therapy 3500 rad from June 10-2019. A CT scan of chest abdomen pelvis done on June 13, 2019 showed resolution of pelvic collection with residual soft tissue thickening along Molina's pouch, stable rectal mass and stable LAD. She was started on cycle 1 day 1 CAPOX on July 01, 2019. Patient was admitted to [facility] on July 14-2019 for abdominal pain, nausea vomiting likely radiation enteritis versus chemo toxicity from oral Xeloda but less likely immunotherapy related (epacodostat). She was restarted on Epacodostat on July 18, 2019. CT scan of abdomen pelvis done on July 29, 2019 showed dehiscence of Molina's pouch with fistulization to the adjacent small bowel, and increasing small bowel and rectal wall thickening and edema. Patient was admitted to [facility] again on July 29, 2019 through August 07, 2019 for abdominal pain, flex sig done on July 30, 2019 showed partially obstructing ulcerated mass with retained fluid in the Rebecca pouch with the proximal aspect of Rebecca pouch is ulcerated, status post dilatation and transanal drainage. CT scan of abdomen pelvis done on August 20, 2019 showed resolution of pelvic fluid collection with a fistulous tract between Rebecca pouch and pelvic pelvic small bowel loop, improved enteritis, new moderate left hydro and mild right hydronephrosis. On August 30, 2019 underwent flex sig with placement of transanal drainage and bilateral ureteral stents. 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 CT/MRI of abdomen pelvis done on December 02, 2019 showed treatment response, reduction in rectal mass., Treatment with 5-FU alone was given on December 16, 2019 followed by break due to to hospitalization for small bowel obstruction and then scheduled for surgery. And SBO resolved on conservative management and patient was discharged home on TPN. On January 17, 2020 underwent colonoscopy with ascending colon snare polypectomy, exploratory laparotomy, extensive lysis of adhesions, completion proctectomy, takedown of end colostomy with creation of colonic J-pouch and end-to-end anastomosis. Cystoscopy and stent placement by urology team, patient was admitted to [facility] on January 25 2 January 30, 2020 with fever, pain, bloody ostomy, she underwent ileoscopy on January 28, 2020 it was normal and no bleeding was seen Patient was seen by colorectal surgery on February 11, 2020 and recommended to complete 6 months of chemotherapy and then reverse in 3 months following completion of chemotherapy. Patient completed 11 cycles of total chemotherapy on April 06, 2020. And during follow-up on June 12, 2020 she underwent excision of anal lesion, pathology consistent with metastatic adenocarcinoma. No rectovaginal fistula. On June 19, 2020 reexcision of perianal adenocarcinoma with additional margin and pathology positive for adenocarcinoma with clear margin. Patient underwent CT scan of chest abdomen pelvis on July 24, 2020 which showed pericecal nodule worrisome for metastatic disease and fluid collection in the presacral space she was admitted to [facility] from July 20- for possible presacral abscess seen on the scan which was drained and culture came back negative but pathology showed metastatic adenocarcinoma and patient was started on systemic chemotherapy with FOLFIRI, which she tolerated well and her second cycle was given on August 17, 2020, patient is considering switching her care to [place] because of inconvenience of traveling back and forth to [place]. She started with third cycle of FOLFIRI here in [place] on 09/10/2020. Ms Brice went to [facility] on 09/17/2020 with abdominal pain, nausea vomiting, lab work-up including urine analysis showed no abnormality, amylase was within normal range. Patient treated symptomatically and improved. As per patient, she stayed dehydrated all the time so she drink lots of water and her nausea vomiting started when she was working her yard, she thinks that she may have overdone it. She also has history of migraine headaches. She completed cycle 4 on September 24, 2020. Ms. Brice is here today for follow-up and consideration of cycle 6 FOLFIRI. She was seen Helena Johnson NP at [facility] on 10/05/2020. She had been reporting headache after chemotherapy and lip tingling for the past 3 weeks. She is getting FOLFIRI treatment. She has had no trouble with her ostomy output and was not having abdominal pain. 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 Improved presacral fluid collection with thin residual rim-enhancing collection. Stable omental thickening without discrete nodularity. No definite CT evidence of metastatic disease in the chest. The recommendation was to proceed with FOLFIRI and reimage her in 6 weeks to reassess for continued progression. Her CEA on 10/05/2020 was 5.5. It was recommended that she have a brain MRI to rule out metastasis given that she has headache after chemotherapy and also has neuropathy in her lips. We did arrange this for her. However I am suspicious that this may be related to her premed of palonosetron as it is a common side effect to have headache after treatment. She will return to [place] in 6 weeks for follow-up and repeat scans. Her last dose was of FOLFiRI on October 08, 2020. She has no new concerns today. She did have the MRI of the brain with and without contrast on 10/21/2020. There were no evidence of metastatic disease to the brain. 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 Her had headaches have been better overall with stopping the Aloxi and relying on ondansetron as part of her premed/prechemo regimen. Patient had a follow-up CT scan of chest abdomen pelvis done At [facility] on November 16, 2020 which showed no significant change in the centrally necrotic mass with nodular peripheral enhancement centered in the presacral space representing biopsy-proven metastatic adenocarcinoma. No significant change in the presacral fluid collection and omental thickening without discrete nodularities. No evidence of metastatic disease in the chest, Patient was evaluated in oncology clinic at [facility] on November 16, 2020 at that time based on follow-up CT scan of chest abdomen pelvis finding it was recommended to continue FOLFIRI for another 3 months and then repeat CT scan of chest abdomen pelvis unless patient develops new symptoms, Came for follow-up, denies any specific complaints, no fever chills, no nausea or vomiting, no diarrhea or constipation, no mouth sores, no abdominal pain, no jaundice, no peripheral neuropathy, tolerating systemic therapy with FOLFIRI, well otherwise Medications: Daily Vitamin 1 Tablet Oral daily, Dexamethasone 2 Tablet (of 4 mg) Oral PRN, Lexapro 1 Tablet (of 10 mg) Oral daily, Ondansetron HCl 1 Tablet (of 8 mg) Oral PRN, oxyCODONE-Acetaminophen 1 Tablet (of 5-325 mg) Oral q 4 to 6 hours PRN, Pantoprazole Sodium 1 Tablet (of 40 mg) Tablet, enteric coated Oral daily, traMADol HCl 1 Each (of 100 mg) Tablet Oral ac (tid) PRN Allergies: pecan nuts, Penicillins, and walnuts. Review of Systems: Review of Systems is not available for this patient. Vital Signs: Performed on Dec 24, 2020 11:40 Height - 69.00 in Temperature - 97.2 F (LOW) Pulse - 99 /min Respiration - 16 /min BP - 113/76 mm(hg) O2 Sat - 99 % Performed on Dec 24, 2020 08:31 Height - 69.00 in Weight - 147.0 lbs (LOW) BSA - 1.81 sq.m BMI - 21.71 Temperature - 97.8 F (LOW) Pulse - 101 /min (HIGH) Respiration - 18 /min BP - 127/74 mm(hg) O2 Sat - 99 % Pain - 0 Performance Status: 0 - Fully active, able to carry on all predisease activities without restrictions. (ECOG) Physical Examination: ENMT - No mouth sores, no thrush, no jaundice, Respiratory - Lungs are clear to auscultation, Cardiovascular - Regular rate and rhythm of heart, Abdomen - Soft, bowel sounds present, Extremities - No visible edema. Lab/Imaging: Test performed on Oct 22, 2020 12:15 WBC 5.3 10 3/uL RBC 3.71 10 6/uL HGB 11.1 g/dL HCT 35.8 % MCV 96.5 fL MCH 29.9 pg MCHC 31.0 g/dL RDW 17.0 % Platelet Count 191 10 3/cmm MPV 9.9 fL Neutrophils 3.21 10 3/uL Lymphocytes 1.2 10 3/uL Monocytes 0.5 10 3/uL Eosinophils 0.4 10 3/uL Basophils 0.0 10 3/uL Neutrophil % 60.7 % Lymphocyte % 21.8 % Monocyte % 8.5 % Eosinophil % 7.8 % Basophils % 0.8 % NRBC % 0 % Test performed on Oct 21, 2020 10:16 Sodium 139 mmol/L Potassium 4.2 mmol/L Chloride 100 mmol/L CO2 30 mmol/L Anion Gap 13.2 BUN 16 mg/dL Creatinine 0.7 mg/dL Cr Clearance (Est) 83.2300 mL/min eGFR 85.4 mL/min Glucose 71 mg/dL Osmolality - Calculated 288 mOsm/kg Calcium 9.0 mg/dL Protein, Total 6.1 g/dL Albumin 4.1 g/dL Globulin 2.0 g/dL Bilirubin, Total 0.2 mg/dL ALT (SGPT) 10 U/L AST (SGOT) 18 U/L Alkaline Phosphatase 100 IU/L Impression: Recurrent rectal cancer per presacral biopsy done in June 2020 History of stage IIIc, T4 N2 M0 locally advanced rectal adenocarcinoma presenting with perforation diagnosed in early 2019 Status post clinical trial with Epacodostat/capox,, patient developed colitis later on she was switched to FOLFOX on September 09, 2019, oxaliplatin was discontinued after third cycle on October 07, 2019 subsequently continue with 5-FU alone till April 06, 2020, On June 12, 2020 underwent excision of anal lesion which was consistent with metastatic adenocarcinoma and on June 19, 2020 underwent reexcision of perianal adenocarcinoma with clear margin, patient was started on FOLFIRI July 19, 2020 at [facility]. She continues to followup with her physician there but is receiving her treatments locally.Follow-up CT scan of chest abdomen pelvis done on November 16, 2020 showed no significant change in the centrally necrotic mass with nodular peripheral enhancement centered in the presacral space representing biopsy-proven metastatic adenocarcinoma. No significant change in the presacral fluid collection and omental thickening without discrete nodularities. No evidence of metastatic disease in the chest, was recommended to continue FOLFIRI for 3 more months and then repeat scans History of DVT,, Treated with Eliquis, now stopped Plan: . Discussed with patient regarding her labs white blood count 3.9 hemoglobin 12.5 hematocrit 40 platelets 214,000 ANC 2330 CMP within normal limits Clinically, patient is doing well with no new signs symptom suggestive of disease progression, tolerating systemic therapy with FOLFIRI well, will proceed with next cycle with FOLFIRI today and then she will return to clinic in 2 weeks with CBC CMP. Patient was considering tooth extraction, she was advised to have appropriate antibiotic prophylaxis. Signed By: Filemon Hickey M.D. <<Signature on File>>
== END 2020-12-29 23:59 | disposition home or self-care (01) ==
LOC: ONCMED 05:31
PROVIDERS: PCP Family Medicine; Visit Provider Internal Medicine Hematology & Oncology
DX: Z51.11 Encounter for antineoplastic chemotherapy (principal); C20 Malignant neoplasm of rectum; K52.9 Noninfective gastroenteritis and colitis, unspecified; Z86.718 Personal history of other venous thrombosis and embolism; Z79.899 Other long term (current) drug therapy
CPT/HCPCS: 36591; 80053; 82607; 82728; 83540; 83550; 85025; 96367; 96368; 96375; 96413; 96415; 96416; 99215; J0461; J0640; J1100; J2405; J3490; J7050; J9190; J9206

== ENCOUNTER 2021-01-07 05:43 | Outpatient (RCR) | payer OTHER, SELFPAY ==
[2021-01-06 14:05] LABS: Basophils % 0.6 %; Eosinophils # 0.2 10^3/uL (0.0-0.8); Eosinophils % 5.1 %; Hematocrit 37.8 % (37.0-47.0); Hemoglobin 12.3 g/dL (11.5-15.3); Lymphocytes # 1.1 10^3/uL (0.8-4.8); Lymphocytes % 22.7 %; Mean Corpuscular HGB Conc 32.5 g/dL (30.0-36.0); Mean Corpuscular Hemoglobin 31.5 pg (28.0-34.0); Mean Corpuscular Volume 96.7 fl (81-99); Mean Platelet Volume 9.9 fL (7.4-10.4); Monocytes # 0.5 10^3/uL (0.2-0.9); Monocytes % 11.5 %; Neutrophils % 59.5 %; Nucleated Red Blood Cells % 0 %; Platelet Count 202 10^3/cmm (130-400); Red Blood Count 3.91 10^6/uL (4.1-5.3); Red Cell Distribution Width 17.5 % (12.1-15.1); White Blood Count 4.7 10^3/uL (4.0-10.0)
[2021-01-06 14:45] LABS: Alanine Aminotransferase 11 U/L (0-33); Albumin Level 3.8 g/dL (3.5-5.2); Alkaline Phosphatase 124 IU/L (35-105); Anion Gap 16.1 (5-19); Aspartate Amino Transferase 17 U/L (0-32); Blood Urea Nitrogen 8 mg/dL (8-23); Calcium 8.8 mg/dL (8.5-10.5); Carbon Dioxide 25 mmol/L (22-29); Chloride 104 mmol/L (98-107); Globulin 2.5 g/dL (1.3-4.6); Glucose 109 mg/dL (65-115); Osmolality Calculated 291 mOsm/kg (285-295); Potassium 4.1 mmol/L (3.5-5.1); Sodium 141 mmol/L (136-145); Total Bilirubin 0.2 mg/dL (0.15-1.2); Total Protein 6.3 g/dL (6.6-8.7)
[2021-01-07] MEDS: sodium chloride 0.9% 250 ML 75 ML IV (09:20)
[2021-01-07] MEDS: famotidine 20 mg/2 mL INJ IVP (09:21)
[2021-01-07] MEDS: ondansetron 2 mg/ML SDV 2 mL 8 MG IVP (09:23)
[2021-01-07 11:00] LABS: Carcinoembryonic Antigen 15.6 ng/mL (0.0-4.7)
--- NOTE | 2021-01-08 13:07 | ONC FU_ITS ---
Dr. Hickey follow up note Patient: Kathryn Brice Unit #: [id number]: [id number] Dicatated By: Filemon Hickey M.D.Date of Visit:Jan 07, 2021 Onc Med Follow-up/Prog Note History of Present Illness: Ms. Brice is a 60-year-old female who was admitted to hospital with abdominal pain, nausea/vomiting and s 20 pound weight loss over the period of 3 months on May 05, 2019. She underwent CT scan of abdomen which showed rectal wall thickening and a mass. A CT scan of abdomen done on May 06, 2019 showed sigmoid pneumatosis consistent with perforation. Ms. Brice underwent flex sigmoidoscopy on May 08, 2019 subsequently diagnostic laparoscopy converted to laparotomy with Molina procedure by Dr. Burch. The pathology showed moderately differentiated invasive adenocarcinoma from the rectal mass biopsy. MMR staining retained by IHC, 11 lymph nodes were negative for metatatic disease. On May 14, 2019 follow-up CT scan of abdomen pelvis showed postoperative changes with fluid and edema adjacent from Rebecca pouch consistent with a leak with peritonitis and ileus. Unchanged rectal mass with a perirectal, perisacral, left common iliac and retroperitoneal lymphadenopathy. Fluid drained by interventional radiologist on May 14, 2019 with the drainage catheter removed on May 17, 2019. On May 27, 2019, pelvic MRIs showed 5.5 cm high rectal mass with multiple mesorectal and inferior mesenteric artery lymph nodes e.g. T4, N2. Postsurgical changes with consistent with dehiscence of Rebecca's pouch, enlarged left common iliac node. On June 07, 2019 CT scan of chest showed 2 1 to 2 cm nodules within lateral basal segment of left lower lobe and and 1.7 x 1.3 right hilar lymph node. Ms Brice was placed on the Epacodostat clinical trial with a short course radiation therapy 3500 rad from June 10-2019. A CT scan of chest abdomen pelvis done on June 13, 2019 showed resolution of pelvic collection with residual soft tissue thickening along Molina's pouch, stable rectal mass and stable LAD. She was started on cycle 1 day 1 CAPOX on July 01, 2019. Patient was admitted to [facility] on July 14-2019 for abdominal pain, nausea vomiting likely radiation enteritis versus chemo toxicity from oral Xeloda but less likely immunotherapy related (epacodostat). She was restarted on Epacodostat on July 18, 2019. CT scan of abdomen pelvis done on July 29, 2019 showed dehiscence of Molina's pouch with fistulization to the adjacent small bowel, and increasing small bowel and rectal wall thickening and edema. Patient was admitted to [facility] again on July 29, 2019 through August 07, 2019 for abdominal pain, flex sig done on July 30, 2019 showed partially obstructing ulcerated mass with retained fluid in the Rebecca pouch with the proximal aspect of Rebecca pouch is ulcerated, status post dilatation and transanal drainage. CT scan of abdomen pelvis done on August 20, 2019 showed resolution of pelvic fluid collection with a fistulous tract between Rebecca pouch and pelvic pelvic small bowel loop, improved enteritis, new moderate left hydro and mild right hydronephrosis. On August 30, 2019 underwent flex sig with placement of transanal drainage and bilateral ureteral stents. 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 CT/MRI of abdomen pelvis done on December 02, 2019 showed treatment response, reduction in rectal mass., Treatment with 5-FU alone was given on December 16, 2019 followed by break due to to hospitalization for small bowel obstruction and then scheduled for surgery. And SBO resolved on conservative management and patient was discharged home on TPN. On January 17, 2020 underwent colonoscopy with ascending colon snare polypectomy, exploratory laparotomy, extensive lysis of adhesions, completion proctectomy, takedown of end colostomy with creation of colonic J-pouch and end-to-end anastomosis. Cystoscopy and stent placement by urology team, patient was admitted to [facility] on January 25 2 January 30, 2020 with fever, pain, bloody ostomy, she underwent ileoscopy on January 28, 2020 it was normal and no bleeding was seen Patient was seen by colorectal surgery on February 11, 2020 and recommended to complete 6 months of chemotherapy and then reverse in 3 months following completion of chemotherapy. Patient completed 11 cycles of total chemotherapy on April 06, 2020. And during follow-up on June 12, 2020 she underwent excision of anal lesion, pathology consistent with metastatic adenocarcinoma. No rectovaginal fistula. On June 19, 2020 reexcision of perianal adenocarcinoma with additional margin and pathology positive for adenocarcinoma with clear margin. Patient underwent CT scan of chest abdomen pelvis on July 24, 2020 which showed pericecal nodule worrisome for metastatic disease and fluid collection in the presacral space she was admitted to [facility] from July 20- for possible presacral abscess seen on the scan which was drained and culture came back negative but pathology showed metastatic adenocarcinoma and patient was started on systemic chemotherapy with FOLFIRI, which she tolerated well and her second cycle was given on August 17, 2020, patient is considering switching her care to [place] because of inconvenience of traveling back and forth to [place]. She started with third cycle of FOLFIRI here in [place] on 09/10/2020. Ms Brice went to [facility] on 09/17/2020 with abdominal pain, nausea vomiting, lab work-up including urine analysis showed no abnormality, amylase was within normal range. Patient treated symptomatically and improved. As per patient, she stayed dehydrated all the time so she drink lots of water and her nausea vomiting started when she was working her yard, she thinks that she may have overdone it. She also has history of migraine headaches. She completed cycle 4 on September 24, 2020. Ms. Brice is here today for follow-up and consideration of cycle 6 FOLFIRI. She was seen Helena Johnson NP at [facility] [place] oncology on 10/05/2020. She had been reporting headache after chemotherapy and lip tingling for the past 3 weeks. She is getting FOLFIRI treatment. She has had no trouble with her ostomy output and was not having abdominal pain. 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 Improved presacral fluid collection with thin residual rim-enhancing collection. Stable omental thickening without discrete nodularity. No definite CT evidence of metastatic disease in the chest. The recommendation was to proceed with FOLFIRI and reimage her in 6 weeks to reassess for continued progression. Her CEA on 10/05/2020 was 5.5. It was recommended that she have a brain MRI to rule out metastasis given that she has headache after chemotherapy and also has neuropathy in her lips. We did arrange this for her. However I am suspicious that this may be related to her premed of palonosetron as it is a common side effect to have headache after treatment. She will return to [place] in 6 weeks for follow-up and repeat scans. Her last dose was of FOLFiRI on October 08, 2020. She has no new concerns today. She did have the MRI of the brain with and without contrast on 10/21/2020. There were no evidence of metastatic disease to the brain. 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 Her had headaches have been better overall with stopping the Aloxi and relying on ondansetron as part of her premed/prechemo regimen. Patient had a follow-up CT scan of chest abdomen pelvis done At [facility] on November 16, 2020 which showed no significant change in the centrally necrotic mass with nodular peripheral enhancement centered in the presacral space representing biopsy-proven metastatic adenocarcinoma. No significant change in the presacral fluid collection and omental thickening without discrete nodularities. No evidence of metastatic disease in the chest, Patient was evaluated in oncology clinic at [facility] on November 16, 2020 at that time based on follow-up CT scan of chest abdomen pelvis finding it was recommended to continue FOLFIRI for another 3 months and then repeat CT scan of chest abdomen pelvis unless patient develops new symptoms, Came for follow-up, denies any specific complaints, no fever chills, no nausea or vomiting, no diarrhea or constipation, no jaundice, no mouth sores, no skin rash, no peripheral neuropathy, tolerating FOLFIRI well otherwise Medications: Daily Vitamin 1 Tablet Oral daily, Dexamethasone 2 Tablet (of 4 mg) Oral PRN, Lexapro 1 Tablet (of 10 mg) Oral daily, Ondansetron HCl 1 Tablet (of 8 mg) Oral PRN, oxyCODONE-Acetaminophen 1 Tablet (of 5-325 mg) Oral q 4 to 6 hours PRN, Pantoprazole Sodium 1 Tablet (of 40 mg) Tablet, enteric coated Oral daily, traMADol HCl 1 Each (of 100 mg) Tablet Oral ac (tid) PRN Allergies: pecan nuts, Penicillins, and walnuts. Review of Systems: Review of Systems is not available for this patient. Vital Signs: Performed on Jan 07, 2021 11:30 Height - 69.00 in Temperature - 97.8 F (LOW) Pulse - 75 /min Respiration - 18 /min BP - 119/73 mm(hg) O2 Sat - 99 % Performed on Jan 07, 2021 08:37 Height - 69.00 in Weight - 151.8 lbs (HIGH) BSA - 1.84 sq.m BMI - 22.42 Temperature - 96.8 F (LOW) Pulse - 86 /min Respiration - 18 /min BP - 128/77 mm(hg) O2 Sat - 98 % Pain - 3 Fatigue - 5 Performance Status: 0 - Fully active, able to carry on all predisease activities without restrictions. (ECOG) Physical Examination: ENMT - No mouth sores, no thrush, no jaundice, Respiratory - Lungs are clear to auscultation, Cardiovascular - Regular rate and rhythm of heart, Abdomen - Soft, bowel sounds present, Extremities - No visible edema. Lab/Imaging: Test performed on Oct 22, 2020 12:15 WBC 5.3 10 3/uL RBC 3.71 10 6/uL HGB 11.1 g/dL HCT 35.8 % MCV 96.5 fL MCH 29.9 pg MCHC 31.0 g/dL RDW 17.0 % Platelet Count 191 10 3/cmm MPV 9.9 fL Neutrophils 3.21 10 3/uL Lymphocytes 1.2 10 3/uL Monocytes 0.5 10 3/uL Eosinophils 0.4 10 3/uL Basophils 0.0 10 3/uL Neutrophil % 60.7 % Lymphocyte % 21.8 % Monocyte % 8.5 % Eosinophil % 7.8 % Basophils % 0.8 % NRBC % 0 % Test performed on Oct 21, 2020 10:16 Sodium 139 mmol/L Potassium 4.2 mmol/L Chloride 100 mmol/L CO2 30 mmol/L Anion Gap 13.2 BUN 16 mg/dL Creatinine 0.7 mg/dL Cr Clearance (Est) 83.2300 mL/min eGFR 85.4 mL/min Glucose 71 mg/dL Osmolality - Calculated 288 mOsm/kg Calcium 9.0 mg/dL Protein, Total 6.1 g/dL Albumin 4.1 g/dL Globulin 2.0 g/dL Bilirubin, Total 0.2 mg/dL ALT (SGPT) 10 U/L AST (SGOT) 18 U/L Alkaline Phosphatase 100 IU/L Impression: Recurrent rectal cancer per presacral biopsy done in June 2020 History of stage IIIc, T4 N2 M0 locally advanced rectal adenocarcinoma presenting with perforation diagnosed in early 2019 Status post clinical trial with Epacodostat/capox,, patient developed colitis later on she was switched to FOLFOX on September 09, 2019, oxaliplatin was discontinued after third cycle on October 07, 2019 subsequently continue with 5-FU alone till April 06, 2020, On June 12, 2020 underwent excision of anal lesion which was consistent with metastatic adenocarcinoma and on June 19, 2020 underwent reexcision of perianal adenocarcinoma with clear margin, patient was started on FOLFIRI July 19, 2020 at [facility]. She continues to followup with her physician there but is receiving her treatments locally.Follow-up CT scan of chest abdomen pelvis done on November 16, 2020 showed no significant change in the centrally necrotic mass with nodular peripheral enhancement centered in the presacral space representing biopsy-proven metastatic adenocarcinoma. No significant change in the presacral fluid collection and omental thickening without discrete nodularities. No evidence of metastatic disease in the chest, was recommended to continue FOLFIRI for 3 more months and then repeat scans History of DVT,, Treated with Eliquis, now stopped Plan: . Discussed with patient regarding her labs white blood count 4.7 hemoglobin 12.3 hematocrit 37.8 platelets 202,000 CMP within normal limits, CEA pending Clinically, patient doing well with no new signs symptom, tolerating systemic therapy with FOLFIRI well, will proceed with next cycle today and then she will return to clinic in 2 weeks with CBC CMP Signed By: Filemon Hickey M.D. <<Signature on File>>
== END 2021-01-13 14:49 | disposition home or self-care (01) ==
LOC: ONCMED 05:43
PROVIDERS: PCP Family Medicine; Visit Provider Internal Medicine Hematology & Oncology
DX: Z51.11 Encounter for antineoplastic chemotherapy (principal); C20 Malignant neoplasm of rectum; C78.5 Secondary malignant neoplasm of large intestine and rectum; Z86.718 Personal history of other venous thrombosis and embolism; Z79.01 Long term (current) use of anticoagulants; Z79.899 Other long term (current) drug therapy
CPT/HCPCS: 36591; 80053; 82378; 85025; 96367; 96368; 96375; 96413; 96416; 99215; J0461; J0640; J1100; J2405; J3490; J7050; J9190; J9206

== ENCOUNTER 2021-01-13 14:50 | Outpatient (CLI) | payer OTHER, SELFPAY ==
--- NOTE | 2021-01-13 14:56 | MR_ITS ---
WS: [id number] MRI PELVIS without CONTRAST. COMPARISON: 11/18/2020 CT. Prior pelvic MRI 12/02/2019. Multiplanar, multisequence imaging is performed without contrast. There is a large amount of marrow edema throughout the sacrum. Consistent with sacral insufficiency f racture. Again noted is the presacral soft tissue thickening which is been present on prior study pro bably related to patient's: Carcinoma and treatment. No marrow edema in the femoral heads of the prox imal femurs. The remaining sacrum is normal. No adenopathy. Colostomy noted in the LEFT lower quadran t. Moderate hydronephrosis RIGHT kidney and ureter. Ureter is dilated and tortuous. This has been previo usly described and the exact cause is not identified but this is not a new finding. Soft tissue nodul e in the RIGHT pelvis may be a small lymph node. MR/MR pelvis wo con* [id number] IMPRESSION: Bilateral sacral edema. Most consistent with insufficiency fractures. No soft t issue mass identified. Presacral soft tissue thickening is unchanged and probably related to prior rad iation and patient's known colon cancer.
== END 2021-01-13 14:51 | disposition home or self-care (01) ==
LOC: RADSHAW 14:54
PROVIDERS: PCP Family Medicine; Visit Provider Orthopaedic Surgery
DX: M84.48XA Pathological fracture, other site, initial encounter for fracture (principal); R60.0 Localized edema
CPT/HCPCS: 72195

== ENCOUNTER 2021-01-21 06:24 | Outpatient (RCR) | payer OTHER, SELFPAY ==
[2021-01-20 14:45] LABS: Basophils % 0.6 %; Eosinophils # 0.3 10^3/uL (0.0-0.8); Eosinophils % 6.8 %; Hematocrit 36.9 % (37.0-47.0); Hemoglobin 11.9 g/dL (11.5-15.3); Lymphocytes # 0.8 10^3/uL (0.8-4.8); Lymphocytes % 16.6 %; Mean Corpuscular HGB Conc 32.2 g/dL (30.0-36.0); Mean Corpuscular Hemoglobin 31.3 pg (28.0-34.0); Mean Corpuscular Volume 97.1 fl (81-99); Mean Platelet Volume 10.7 fL (7.4-10.4); Monocytes # 0.5 10^3/uL (0.2-0.9); Monocytes % 9.2 %; Neutrophils # 3.32 10^3/uL (1.8-7.7); Neutrophils % 66.4 %; Nucleated Red Blood Cells % 0 %; Platelet Count 206 10^3/cmm (130-400); Red Cell Distribution Width 17.1 % (12.1-15.1)
[2021-01-20 15:21] LABS: Alanine Aminotransferase 6 U/L (0-33); Albumin Level 3.9 g/dL (3.5-5.2); Alkaline Phosphatase 125 IU/L (35-105); Anion Gap 14.6 (5-19); Aspartate Amino Transferase 17 U/L (0-32); Blood Urea Nitrogen 10 mg/dL (8-23); Calcium 8.9 mg/dL (8.5-10.5); Carbon Dioxide 26 mmol/L (22-29); Chloride 104 mmol/L (98-107); Globulin 2.3 g/dL (1.3-4.6); Glomerular Filtration Rate 85.1 mL/min (90-130); Glucose 108 mg/dL (65-115); Osmolality Calculated 292 mOsm/kg (285-295); Potassium 3.6 mmol/L (3.5-5.1); Sodium 141 mmol/L (136-145); Total Bilirubin 0.2 mg/dL (0.15-1.2); Total Protein 6.2 g/dL (6.6-8.7)
[2021-01-21] MEDS: famotidine 20 mg/2 mL INJ IVP (10:22)
[2021-01-21] MEDS: sodium chloride 0.9% 250 ML 75 ML IV (10:22)
[2021-01-21] MEDS: ondansetron 2 mg/ML SDV 2 mL 8 MG IV (10:25)
--- NOTE | 2021-01-22 13:04 | ONC FU_ITS ---
Dr. Hickey follow up note Patient: Kathryn Brice Unit #: [id number]: [id number] Dicatated By: Filemon Hickey M.D.Date of Visit:Jan 21, 2021 Onc Med Follow-up/Prog Note History of Present Illness: Ms. Brice is a 61-year-old female who was admitted to hospital with abdominal pain, nausea/vomiting and s 20 pound weight loss over the period of 3 months on May 05, 2019. She underwent CT scan of abdomen which showed rectal wall thickening and a mass. A CT scan of abdomen done on May 06, 2019 showed sigmoid pneumatosis consistent with perforation. Ms. Brice underwent flex sigmoidoscopy on May 08, 2019 subsequently diagnostic laparoscopy converted to laparotomy with Molina procedure by Dr. Burch. The pathology showed moderately differentiated invasive adenocarcinoma from the rectal mass biopsy. MMR staining retained by IHC, 11 lymph nodes were negative for metatatic disease. On May 14, 2019 follow-up CT scan of abdomen pelvis showed postoperative changes with fluid and edema adjacent from Rebecca pouch consistent with a leak with peritonitis and ileus. Unchanged rectal mass with a perirectal, perisacral, left common iliac and retroperitoneal lymphadenopathy. Fluid drained by interventional radiologist on May 14, 2019 with the drainage catheter removed on May 17, 2019. On May 27, 2019, pelvic MRIs showed 5.5 cm high rectal mass with multiple mesorectal and inferior mesenteric artery lymph nodes e.g. T4, N2. Postsurgical changes with consistent with dehiscence of Rebecca's pouch, enlarged left common iliac node. On June 07, 2019 CT scan of chest showed 2 1 to 2 cm nodules within lateral basal segment of left lower lobe and and 1.7 x 1.3 right hilar lymph node. Ms Brice was placed on the Epacodostat clinical trial with a short course radiation therapy 3500 rad from June 10-2019. A CT scan of chest abdomen pelvis done on June 13, 2019 showed resolution of pelvic collection with residual soft tissue thickening along Molina's pouch, stable rectal mass and stable LAD. She was started on cycle 1 day 1 CAPOX on July 01, 2019. Patient was admitted to [facility] on July 14-2019 for abdominal pain, nausea vomiting likely radiation enteritis versus chemo toxicity from oral Xeloda but less likely immunotherapy related (epacodostat). She was restarted on Epacodostat on July 18, 2019. CT scan of abdomen pelvis done on July 29, 2019 showed dehiscence of Molina's pouch with fistulization to the adjacent small bowel, and increasing small bowel and rectal wall thickening and edema. Patient was admitted to [place] again on July 29, 2019 through August 07, 2019 for abdominal pain, flex sig done on July 30, 2019 showed partially obstructing ulcerated mass with retained fluid in the Rebecca pouch with the proximal aspect of Rebecca pouch is ulcerated, status post dilatation and transanal drainage. CT scan of abdomen pelvis done on August 20, 2019 showed resolution of pelvic fluid collection with a fistulous tract between Rebecca pouch and pelvic pelvic small bowel loop, improved enteritis, new moderate left hydro and mild right hydronephrosis. On August 30, 2019 underwent flex sig with placement of transanal drainage and bilateral ureteral stents. 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 CT/MRI of abdomen pelvis done on December 02, 2019 showed treatment response, reduction in rectal mass., Treatment with 5-FU alone was given on December 16, 2019 followed by break due to to hospitalization for small bowel obstruction and then scheduled for surgery. And SBO resolved on conservative management and patient was discharged home on TPN. On January 17, 2020 underwent colonoscopy with ascending colon snare polypectomy, exploratory laparotomy, extensive lysis of adhesions, completion proctectomy, takedown of end colostomy with creation of colonic J-pouch and end-to-end anastomosis. Cystoscopy and stent placement by urology team, patient was admitted to [place] on January 25 2 January 30, 2020 with fever, pain, bloody ostomy, she underwent ileoscopy on January 28, 2020 it was normal and no bleeding was seen Patient was seen by colorectal surgery on February 11, 2020 and recommended to complete 6 months of chemotherapy and then reverse in 3 months following completion of chemotherapy. Patient completed 11 cycles of total chemotherapy on April 06, 2020. And during follow-up on June 12, 2020 she underwent excision of anal lesion, pathology consistent with metastatic adenocarcinoma. No rectovaginal fistula. On June 19, 2020 reexcision of perianal adenocarcinoma with additional margin and pathology positive for adenocarcinoma with clear margin. Patient underwent CT scan of chest abdomen pelvis on July 24, 2020 which showed pericecal nodule worrisome for metastatic disease and fluid collection in the presacral space she was admitted to [facility] from July 20- for possible presacral abscess seen on the scan which was drained and culture came back negative but pathology showed metastatic adenocarcinoma and patient was started on systemic chemotherapy with FOLFIRI, which she tolerated well and her second cycle was given on August 17, 2020, patient is considering switching her care to [place] because of inconvenience of traveling back and forth to [place]. She started with third cycle of FOLFIRI here in [place] on 09/10/2020. Ms Brice went to [facility] on 09/17/2020 with abdominal pain, nausea vomiting, lab work-up including urine analysis showed no abnormality, amylase was within normal range. Patient treated symptomatically and improved. As per patient, she stayed dehydrated all the time so she drink lots of water and her nausea vomiting started when she was working her yard, she thinks that she may have overdone it. She also has history of migraine headaches. She completed cycle 4 on September 24, 2020. Ms. Brice is here today for follow-up and consideration of cycle 6 FOLFIRI. She was seen Helena Johnson NP at [facility] oncology on 10/05/2020. She had been reporting headache after chemotherapy and lip tingling for the past 3 weeks. She is getting FOLFIRI treatment. She has had no trouble with her ostomy output and was not having abdominal pain. 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 Improved presacral fluid collection with thin residual rim-enhancing collection. Stable omental thickening without discrete nodularity. No definite CT evidence of metastatic disease in the chest. The recommendation was to proceed with FOLFIRI and reimage her in 6 weeks to reassess for continued progression. Her CEA on 10/05/2020 was 5.5. It was recommended that she have a brain MRI to rule out metastasis given that she has headache after chemotherapy and also has neuropathy in her lips. We did arrange this for her. However I am suspicious that this may be related to her premed of palonosetron as it is a common side effect to have headache after treatment. She will return to [place] in 6 weeks for follow-up and repeat scans. Her last dose was of FOLFiRI on October 08, 2020. She has no new concerns today. She did have the MRI of the brain with and without contrast on 10/21/2020. There were no evidence of metastatic disease to the brain. 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 Her had headaches have been better overall with stopping the Aloxi and relying on ondansetron as part of her premed/prechemo regimen. Patient had a follow-up CT scan of chest abdomen pelvis done At [place] on November 16, 2020 which showed no significant change in the centrally necrotic mass with nodular peripheral enhancement centered in the presacral space representing biopsy-proven metastatic adenocarcinoma. No significant change in the presacral fluid collection and omental thickening without discrete nodularities. No evidence of metastatic disease in the chest, Patient was evaluated in oncology clinic at [place] on November 16, 2020 at that time based on follow-up CT scan of chest abdomen pelvis finding it was recommended to continue FOLFIRI for another 3 months and then repeat CT scan of chest abdomen pelvis unless patient develops new symptoms, Came for follow-up, denies any specific complaints except off and on lower back/pelvic pain for which she underwent MRI scan of the pelvis on January 13, 2021 which shows bilateral sacral edema. Most consistent with insufficiency fractures, no soft tissue mass identified. Otherwise no mouth sores, no thrush, no jaundice, no abdominal pain, no peripheral neuropathy, patient is also scheduled for dental extraction in 2 weeks in [place], patient says she will proceed with chemotherapy With FOLFIRI today but next chemotherapy she wants to delay for a week and also scheduled for follow-up abdominal scans at [place] on February 15, 2021. Medications: Daily Vitamin 1 Tablet Oral daily, Dexamethasone 2 Tablet (of 4 mg) Oral PRN, Lexapro 1 Tablet (of 10 mg) Oral daily, Ondansetron HCl 1 Tablet (of 8 mg) Oral PRN, oxyCODONE-Acetaminophen 1 Tablet (of 5-325 mg) Oral q 4 to 6 hours PRN, Pantoprazole Sodium 1 Tablet (of 40 mg) Tablet, enteric coated Oral daily, traMADol HCl 1 Each (of 100 mg) Tablet Oral ac (tid) PRN Allergies: pecan nuts, Penicillins, and walnuts. Review of Systems: Review of Systems is not available for this patient. Vital Signs: Performed on Jan 21, 2021 08:50 Height - 69.00 in Weight - 154.0 lbs (HIGH) BSA - 1.85 sq.m BMI - 22.74 Temperature - 97.8 F (LOW) Pulse - 87 /min Respiration - 18 /min BP - 126/75 mm(hg) O2 Sat - 97 % Pain - 4 Performance Status: 0 - Fully active, able to carry on all predisease activities without restrictions. (ECOG) Physical Examination: ENMT - No mouth sores, no thrush, no jaundice, Respiratory - Lungs are clear to auscultation, Cardiovascular - Regular rate and rhythm of heart, Abdomen - Soft, bowel sounds present, Extremities - No visible edema. Lab/Imaging: Test performed on Oct 22, 2020 12:15 WBC 5.3 10 3/uL RBC 3.71 10 6/uL HGB 11.1 g/dL HCT 35.8 % MCV 96.5 fL MCH 29.9 pg MCHC 31.0 g/dL RDW 17.0 % Platelet Count 191 10 3/cmm MPV 9.9 fL Neutrophils 3.21 10 3/uL Lymphocytes 1.2 10 3/uL Monocytes 0.5 10 3/uL Eosinophils 0.4 10 3/uL Basophils 0.0 10 3/uL Neutrophil % 60.7 % Lymphocyte % 21.8 % Monocyte % 8.5 % Eosinophil % 7.8 % Basophils % 0.8 % NRBC % 0 % Test performed on Oct 21, 2020 10:16 Sodium 139 mmol/L Potassium 4.2 mmol/L Chloride 100 mmol/L CO2 30 mmol/L Anion Gap 13.2 BUN 16 mg/dL Creatinine 0.7 mg/dL Cr Clearance (Est) 83.2300 mL/min eGFR 85.4 mL/min Glucose 71 mg/dL Osmolality - Calculated 288 mOsm/kg Calcium 9.0 mg/dL Protein, Total 6.1 g/dL Albumin 4.1 g/dL Globulin 2.0 g/dL Bilirubin, Total 0.2 mg/dL ALT (SGPT) 10 U/L AST (SGOT) 18 U/L Alkaline Phosphatase 100 IU/L Impression: Recurrent rectal cancer per presacral biopsy done in June 2020 History of stage IIIc, T4 N2 M0 locally advanced rectal adenocarcinoma presenting with perforation diagnosed in early 2019 Status post clinical trial with Epacodostat/capox,, patient developed colitis later on she was switched to FOLFOX on September 09, 2019, oxaliplatin was discontinued after third cycle on October 07, 2019 subsequently continue with 5-FU alone till April 06, 2020, On June 12, 2020 underwent excision of anal lesion which was consistent with metastatic adenocarcinoma and on June 19, 2020 underwent reexcision of perianal adenocarcinoma with clear margin, patient was started on FOLFIRI July 19, 2020 at [place]. She continues to followup with her physician there but is receiving her treatments locally.Follow-up CT scan of chest abdomen pelvis done on November 16, 2020 showed no significant change in the centrally necrotic mass with nodular peripheral enhancement centered in the presacral space representing biopsy-proven metastatic adenocarcinoma. No significant change in the presacral fluid collection and omental thickening without discrete nodularities. No evidence of metastatic disease in the chest, was recommended to continue FOLFIRI for 3 more months and then repeat scans History of DVT,, Treated with Eliquis, now stopped Plan: . Discussed with patient regarding her labs white blood count 5 hemoglobin 11.9 hematocrit 36.9 platelets 206,000 CMP within normal limits except alk phos 125 which is stable, her CEA was 15.6 on January 06, 2021 Clinically, patient is doing well with no new signs symptoms just as well disease progression although her PSA is slowly gradually going up, patient is scheduled for follow-up scans at [place] on February 15, 2021. In the meantime we will proceed with her next cycle of systemic chemotherapy with FOLFIRI today and then patient will return to clinic in 2-1/2 weeks with CBC CMP, as patient is scheduled for dental extraction in [place] in 2 weeks. Signed By: Filemon Hickey M.D. <<Signature on File>>
== END 2021-01-28 23:59 | disposition home or self-care (01) ==
LOC: ONCMED 06:24
PROVIDERS: PCP Family Medicine; Visit Provider Internal Medicine Hematology & Oncology
DX: Z51.11 Encounter for antineoplastic chemotherapy (principal); C20 Malignant neoplasm of rectum; Z79.899 Other long term (current) drug therapy
CPT/HCPCS: 36591; 80053; 85025; 96367; 96368; 96375; 96413; 96415; 96416; J0461; J0640; J1100; J2405; J3490; J7050; J9190; J9206

== ENCOUNTER 2021-02-11 06:21 | Outpatient (RCR) | payer OTHER, SELFPAY ==
[2021-02-10 15:36] LABS: Eosinophils # 0.2 10^3/uL (0.0-0.8); Eosinophils % 4.1 %; Hematocrit 36.9 % (37.0-47.0); Mean Corpuscular HGB Conc 32.5 g/dL (30.0-36.0); Mean Corpuscular Hemoglobin 31.2 pg (28.0-34.0); Mean Corpuscular Volume 95.8 fl (81-99); Mean Platelet Volume 10.3 fL (7.4-10.4); Monocytes # 0.4 10^3/uL (0.2-0.9); Monocytes % 10.1 %; Neutrophils # 2.53 10^3/uL (1.8-7.7); Neutrophils % 60.6 %; Nucleated Red Blood Cells % 0 %; Platelet Count 239 10^3/cmm (130-400); Red Blood Count 3.85 10^6/uL (4.1-5.3); Red Cell Distribution Width 16.1 % (12.1-15.1); White Blood Count 4.2 10^3/uL (4.0-10.0)
[2021-02-10 16:32] LABS: Alanine Aminotransferase 10 U/L (0-33); Albumin Level 3.9 g/dL (3.5-5.2); Alkaline Phosphatase 108 IU/L (35-105); Anion Gap 17.1 (5-19); Aspartate Amino Transferase 18 U/L (0-32); Blood Urea Nitrogen 12 mg/dL (8-23); Carbon Dioxide 24 mmol/L (22-29); Chloride 104 mmol/L (98-107); Globulin 2.8 g/dL (1.3-4.6); Glomerular Filtration Rate 63.7 mL/min (90-130); Glucose 110 mg/dL (65-115); Osmolality Calculated 292 mOsm/kg (285-295); Potassium 4.1 mmol/L (3.5-5.1); Sodium 141 mmol/L (136-145); Total Bilirubin 0.2 mg/dL (0.15-1.2); Total Protein 6.7 g/dL (6.6-8.7)
[2021-02-11] MEDS: sodium chloride 0.9% 250 ML 75 ML IV (09:28)
[2021-02-11] MEDS: famotidine 20 mg/2 mL INJ IVP (09:30)
[2021-02-11] MEDS: ondansetron 2 mg/ML SDV 2 mL 8 MG IVP (09:33)
--- NOTE | 2021-02-11 18:20 | ONC FU_ITS ---
Dr. Hickey follow up note Patient: Kathryn Brice Unit #: [id number]: [id number] Dicatated By: Filemon Hickey M.D.Date of Visit:Feb 11, 2021 Onc Med Follow-up/Prog Note History of Present Illness: Ms. Brice is a 61-year-old female who was admitted to hospital with abdominal pain, nausea/vomiting and s 20 pound weight loss over the period of 3 months on May 05, 2019. She underwent CT scan of abdomen which showed rectal wall thickening and a mass. A CT scan of abdomen done on May 06, 2019 showed sigmoid pneumatosis consistent with perforation. Ms. Brice underwent flex sigmoidoscopy on May 08, 2019 subsequently diagnostic laparoscopy converted to laparotomy with Molina procedure by Dr. Burch. The pathology showed moderately differentiated invasive adenocarcinoma from the rectal mass biopsy. MMR staining retained by IHC, 11 lymph nodes were negative for metatatic disease. On May 14, 2019 follow-up CT scan of abdomen pelvis showed postoperative changes with fluid and edema adjacent from Rebecca pouch consistent with a leak with peritonitis and ileus. Unchanged rectal mass with a perirectal, perisacral, left common iliac and retroperitoneal lymphadenopathy. Fluid drained by interventional radiologist on May 14, 2019 with the drainage catheter removed on May 17, 2019. On May 27, 2019, pelvic MRIs showed 5.5 cm high rectal mass with multiple mesorectal and inferior mesenteric artery lymph nodes e.g. T4, N2. Postsurgical changes with consistent with dehiscence of Rebecca's pouch, enlarged left common iliac node. On June 07, 2019 CT scan of chest showed 2 1 to 2 cm nodules within lateral basal segment of left lower lobe and and 1.7 x 1.3 right hilar lymph node. Ms Brice was placed on the Epacodostat clinical trial with a short course radiation therapy 3500 rad from June 10-2019. A CT scan of chest abdomen pelvis done on June 13, 2019 showed resolution of pelvic collection with residual soft tissue thickening along Molina's pouch, stable rectal mass and stable LAD. She was started on cycle 1 day 1 CAPOX on July 01, 2019. Patient was admitted to [facility] on July 14-2019 for abdominal pain, nausea vomiting likely radiation enteritis versus chemo toxicity from oral Xeloda but less likely immunotherapy related (epacodostat). She was restarted on Epacodostat on July 18, 2019. CT scan of abdomen pelvis done on July 29, 2019 showed dehiscence of Molina's pouch with fistulization to the adjacent small bowel, and increasing small bowel and rectal wall thickening and edema. Patient was admitted to [facility] again on July 29, 2019 through August 07, 2019 for abdominal pain, flex sig done on July 30, 2019 showed partially obstructing ulcerated mass with retained fluid in the Rebecca pouch with the proximal aspect of Rebecca pouch is ulcerated, status post dilatation and transanal drainage. CT scan of abdomen pelvis done on August 20, 2019 showed resolution of pelvic fluid collection with a fistulous tract between Rebecca pouch and pelvic pelvic small bowel loop, improved enteritis, new moderate left hydro and mild right hydronephrosis. On August 30, 2019 underwent flex sig with placement of transanal drainage and bilateral ureteral stents. 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 CT/MRI of abdomen pelvis done on December 02, 2019 showed treatment response, reduction in rectal mass., Treatment with 5-FU alone was given on December 16, 2019 followed by break due to to hospitalization for small bowel obstruction and then scheduled for surgery. And SBO resolved on conservative management and patient was discharged home on TPN. On January 17, 2020 underwent colonoscopy with ascending colon snare polypectomy, exploratory laparotomy, extensive lysis of adhesions, completion proctectomy, takedown of end colostomy with creation of colonic J-pouch and end-to-end anastomosis. Cystoscopy and stent placement by urology team, patient was admitted to [facility] on January 25 2 January 30, 2020 with fever, pain, bloody ostomy, she underwent ileoscopy on January 28, 2020 it was normal and no bleeding was seen Patient was seen by colorectal surgery on February 11, 2020 and recommended to complete 6 months of chemotherapy and then reverse in 3 months following completion of chemotherapy. Patient completed 11 cycles of total chemotherapy on April 06, 2020. And during follow-up on June 12, 2020 she underwent excision of anal lesion, pathology consistent with metastatic adenocarcinoma. No rectovaginal fistula. On June 19, 2020 reexcision of perianal adenocarcinoma with additional margin and pathology positive for adenocarcinoma with clear margin. Patient underwent CT scan of chest abdomen pelvis on July 24, 2020 which showed pericecal nodule worrisome for metastatic disease and fluid collection in the presacral space she was admitted to [facility] from July 20- for possible presacral abscess seen on the scan which was drained and culture came back negative but pathology showed metastatic adenocarcinoma and patient was started on systemic chemotherapy with FOLFIRI, which she tolerated well and her second cycle was given on August 17, 2020, patient is considering switching her care to [place] because of inconvenience of traveling back and forth to [place]. She started with third cycle of FOLFIRI here in [place] on 09/10/2020. Ms Brice went to [facility] on 09/17/2020 with abdominal pain, nausea vomiting, lab work-up including urine analysis showed no abnormality, amylase was within normal range. Patient treated symptomatically and improved. As per patient, she stayed dehydrated all the time so she drink lots of water and her nausea vomiting started when she was working her yard, she thinks that she may have overdone it. She also has history of migraine headaches. She completed cycle 4 on September 24, 2020. Ms. Brice is here today for follow-up and consideration of cycle 6 FOLFIRI. She was seen Helena Johnson NP at [facility] [place] oncology on 10/05/2020. She had been reporting headache after chemotherapy and lip tingling for the past 3 weeks. She is getting FOLFIRI treatment. She has had no trouble with her ostomy output and was not having abdominal pain. 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 Improved presacral fluid collection with thin residual rim-enhancing collection. Stable omental thickening without discrete nodularity. No definite CT evidence of metastatic disease in the chest. The recommendation was to proceed with FOLFIRI and reimage her in 6 weeks to reassess for continued progression. Her CEA on 10/05/2020 was 5.5. It was recommended that she have a brain MRI to rule out metastasis given that she has headache after chemotherapy and also has neuropathy in her lips. We did arrange this for her. However I am suspicious that this may be related to her premed of palonosetron as it is a common side effect to have headache after treatment. She will return to [place] in 6 weeks for follow-up and repeat scans. Her last dose was of FOLFiRI on October 08, 2020. She has no new concerns today. She did have the MRI of the brain with and without contrast on 10/21/2020. There were no evidence of metastatic disease to the brain. 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 Her had headaches have been better overall with stopping the Aloxi and relying on ondansetron as part of her premed/prechemo regimen. Patient had a follow-up CT scan of chest abdomen pelvis done At [facility] on November 16, 2020 which showed no significant change in the centrally necrotic mass with nodular peripheral enhancement centered in the presacral space representing biopsy-proven metastatic adenocarcinoma. No significant change in the presacral fluid collection and omental thickening without discrete nodularities. No evidence of metastatic disease in the chest, Patient was evaluated in oncology clinic at [facility] on November 16, 2020 at that time based on follow-up CT scan of chest abdomen pelvis finding it was recommended to continue FOLFIRI for another 3 months [address] then repeat [address] scan of chest abdomen pelvis unless patient develops new symptoms, Came for follow-up, denies any specific complaints, no fever chills, no nausea or vomiting, no diarrhea constipation, no mouth sores, no jaundice, no abdominal pain, patient recently underwent dental extraction, tolerated well. Patient is tolerating systemic therapy with FOLFIRI well, now scheduled for follow-up scans on coming Monday at [facility] Medications: Daily Vitamin 1 Tablet Oral daily, Dexamethasone 2 Tablet (of 4 mg) Oral PRN, HYDROcodone-Acetaminophen 1 Tablet (of 5-325 mg) Oral q 6 hours PRN, Ibuprofen 1 Tablet (of 800 mg) Oral q 6 hours PRN, Lexapro 1 Tablet (of 10 mg) Oral daily, Ondansetron HCl 1 Tablet (of 8 mg) Oral PRN, oxyCODONE-Acetaminophen 1 Tablet (of 5-325 mg) Oral q 4 to 6 hours PRN, Pantoprazole Sodium 1 Tablet (of 40 mg) Tablet, enteric coated Oral daily, traMADol HCl 1 Each (of 100 mg) Tablet Oral ac (tid) PRN Allergies: pecan nuts, Penicillins, and walnuts. Review of Systems: Review of Systems is not available for this patient. Vital Signs: Performed on Feb 11, 2021 08:30 Height - 69.00 in Weight - 149.6 lbs (LOW) BSA - 1.83 sq.m BMI - 22.09 Temperature - 98.6 F Pulse - 84 /min Respiration - 18 /min BP - 128/78 mm(hg) O2 Sat - 93 % (LOW) Pain - 0 Fatigue - 2 Performance Status: 0 - Fully active, able to carry on all predisease activities without restrictions. (ECOG) Physical Examination: ENMT - No mouth sores, no thrush, no jaundice, Respiratory - Lungs are clear to auscultation, Cardiovascular - Regular rate and rhythm of heart, Abdomen - Soft, bowel sounds present, Extremities - No visible edema. Lab/Imaging: Test performed on Oct 22, 2020 12:15 WBC 5.3 10 3/uL RBC 3.71 10 6/uL HGB 11.1 g/dL HCT 35.8 % MCV 96.5 fL MCH 29.9 pg MCHC 31.0 g/dL RDW 17.0 % Platelet Count 191 10 3/cmm MPV 9.9 fL Neutrophils 3.21 10 3/uL Lymphocytes 1.2 10 3/uL Monocytes 0.5 10 3/uL Eosinophils 0.4 10 3/uL Basophils 0.0 10 3/uL Neutrophil % 60.7 % Lymphocyte % 21.8 % Monocyte % 8.5 % Eosinophil % 7.8 % Basophils % 0.8 % NRBC % 0 % Test performed on Oct 21, 2020 10:16 Sodium 139 mmol/L Potassium 4.2 mmol/L Chloride 100 mmol/L CO2 30 mmol/L Anion Gap 13.2 BUN 16 mg/dL Creatinine 0.7 mg/dL Cr Clearance (Est) 83.2300 mL/min eGFR 85.4 mL/min Glucose 71 mg/dL Osmolality - Calculated 288 mOsm/kg Calcium 9.0 mg/dL Protein, Total 6.1 g/dL Albumin 4.1 g/dL Globulin 2.0 g/dL Bilirubin, Total 0.2 mg/dL ALT (SGPT) 10 U/L AST (SGOT) 18 U/L Alkaline Phosphatase 100 IU/L Impression: Recurrent rectal cancer per presacral biopsy done in June 2020 History of stage IIIc, T4 N2 M0 locally advanced rectal adenocarcinoma presenting with perforation diagnosed in early 2019 Status post clinical trial with Epacodostat/capox,, patient developed colitis later on she was switched to FOLFOX on September 09, 2019, oxaliplatin was discontinued after third cycle on October 07, 2019 subsequently continue with 5-FU alone till April 06, 2020, On June 12, 2020 underwent excision of anal lesion which was consistent with metastatic adenocarcinoma and on June 19, 2020 underwent reexcision of perianal adenocarcinoma with clear margin, patient was started on FOLFIRI July 19, 2020 at [facility]. She continues to followup with her physician there but is receiving her treatments locally.Follow-up CT scan of chest abdomen pelvis done on November 16, 2020 showed no significant change in the centrally necrotic mass with nodular peripheral enhancement centered in the presacral space representing biopsy-proven metastatic adenocarcinoma. No significant change in the presacral fluid collection and omental thickening without discrete nodularities. No evidence of metastatic disease in the chest, was recommended to continue FOLFIRI for 3 more months and then repeat scans History of DVT,, Treated with Eliquis, now stopped Plan: . . Discussed with patient regarding her labs white blood count 4.2 hemoglobin 12 hematocrit 36.9 platelets 239,000 CMP within normal limits Clinically, patient is doing well with no new signs symptom suggestive of disease progression, tolerating FOLFIRI well, will proceed with next cycle today, patient is scheduled for follow-up radiological studies on Monday at [facility]., Based on follow-up scans, will decide to continue same regimen or surgical intervention or new treatment plan. Patient will return to clinic in 3 weeks with CBC CMP instead of 2 weeks as I will be out of town for the next 2 weeks. In case patient decided to pursue further treatment at [facility], then we will see her on as-needed basis. Signed By: Filemon Hickey M.D. <<Signature on File>>
== END 2021-02-28 23:59 | disposition home or self-care (01) ==
LOC: ONCMED 06:21
PROVIDERS: PCP Family Medicine; Visit Provider Internal Medicine Hematology & Oncology
DX: Z51.11 Encounter for antineoplastic chemotherapy (principal); C20 Malignant neoplasm of rectum; K52.1 Toxic gastroenteritis and colitis; T45.1X5D Adverse effect of antineoplastic and immunosuppressive drugs, subsequent encounter; Z86.718 Personal history of other venous thrombosis and embolism; Z79.899 Other long term (current) drug therapy
CPT/HCPCS: 36591; 80053; 85025; 96367; 96368; 96375; 96413; 96415; 96416; 99215; J0461; J0640; J1100; J2405; J3490; J7050; J9190; J9206

== ENCOUNTER 2021-03-19 09:52 | Outpatient (RCR) | payer OTHER, SELFPAY ==
[2021-03-03 16:12] LABS: Eosinophils # 0.2 10^3/uL (0.0-0.8); Eosinophils % 3.8 %; Hematocrit 38.5 % (37.0-47.0); Lymphocytes # 1.3 10^3/uL (0.8-4.8); Lymphocytes % 32.9 %; Mean Corpuscular HGB Conc 31.2 g/dL (30.0-36.0); Mean Corpuscular Hemoglobin 30.2 pg (28.0-34.0); Mean Corpuscular Volume 96.7 fl (81-99); Monocytes # 0.4 10^3/uL (0.2-0.9); Monocytes % 10.7 %; Neutrophils # 2.01 10^3/uL (1.8-7.7); Neutrophils % 51.3 %; Nucleated Red Blood Cells % 0 %; Platelet Count 225 10^3/cmm (130-400); Red Blood Count 3.98 10^6/uL (4.1-5.3); Red Cell Distribution Width 15.3 % (12.1-15.1); White Blood Count 3.9 10^3/uL (4.0-10.0)
[2021-03-03 16:24] LABS: Alanine Aminotransferase 8 U/L (0-33); Alkaline Phosphatase 124 IU/L (35-105); Aspartate Amino Transferase 15 U/L (0-32); Blood Urea Nitrogen 11 mg/dL (8-23); Carbon Dioxide 26 mmol/L (22-29); Chloride 105 mmol/L (98-107); Globulin 2.2 g/dL (1.3-4.6); Glomerular Filtration Rate 125.4 mL/min (90-130); Glucose 106 mg/dL (65-115); Osmolality Calculated 294 mOsm/kg (285-295); Sodium 142 mmol/L (136-145); Total Bilirubin 0.2 mg/dL (0.15-1.2); Total Protein 6.2 g/dL (6.6-8.7)
[2021-03-04] MEDS: famotidine 20 mg/2 mL INJ IVP (09:54)
[2021-03-04] MEDS: ondansetron 2 mg/ML SDV 2 mL 8 MG IV (09:57)
--- NOTE | 2021-03-08 09:24 | ONC FU_ITS ---
Dr. Hickey follow up note Patient: Kathryn Brice Unit #: [id number]: [id number] Dicatated By: Filemon Hickey M.D.Date of Visit:Mar 04, 2021 Onc Med Follow-up/Prog Note History of Present Illness: Ms. Brice is a 61-year-old female who was admitted to hospital with abdominal pain, nausea/vomiting and s 20 pound weight loss over the period of 3 months on May 05, 2019. She underwent CT scan of abdomen which showed rectal wall thickening and a mass. A CT scan of abdomen done on May 06, 2019 showed sigmoid pneumatosis consistent with perforation. Ms. Brice underwent flex sigmoidoscopy on May 08, 2019 subsequently diagnostic laparoscopy converted to laparotomy with Molina procedure by Dr. Burch. The pathology showed moderately differentiated invasive adenocarcinoma from the rectal mass biopsy. MMR staining retained by IHC, 11 lymph nodes were negative for metatatic disease. On May 14, 2019 follow-up CT scan of abdomen pelvis showed postoperative changes with fluid and edema adjacent from Rebecca pouch consistent with a leak with peritonitis and ileus. Unchanged rectal mass with a perirectal, perisacral, left common iliac and retroperitoneal lymphadenopathy. Fluid drained by interventional radiologist on May 14, 2019 with the drainage catheter removed on May 17, 2019. On May 27, 2019, pelvic MRIs showed 5.5 cm high rectal mass with multiple mesorectal and inferior mesenteric artery lymph nodes e.g. T4, N2. Postsurgical changes with consistent with dehiscence of Rebecca's pouch, enlarged left common iliac node. On June 07, 2019 CT scan of chest showed 2 1 to 2 cm nodules within lateral basal segment of left lower lobe and and 1.7 x 1.3 right hilar lymph node. Ms Brice was placed on the Epacodostat clinical trial with a short course radiation therapy 3500 rad from June 10-2019. A CT scan of chest abdomen pelvis done on June 13, 2019 showed resolution of pelvic collection with residual soft tissue thickening along Molina's pouch, stable rectal mass and stable LAD. She was started on cycle 1 day 1 CAPOX on July 01, 2019. Patient was admitted to [facility] on July 14-2019 for abdominal pain, nausea vomiting likely radiation enteritis versus chemo toxicity from oral Xeloda but less likely immunotherapy related (epacodostat). She was restarted on Epacodostat on July 18, 2019. CT scan of abdomen pelvis done on July 29, 2019 showed dehiscence of Molina's pouch with fistulization to the adjacent small bowel, and increasing small bowel and rectal wall thickening and edema. Patient was admitted to [facility] again on July 29, 2019 through August 07, 2019 for abdominal pain, flex sig done on July 30, 2019 showed partially obstructing ulcerated mass with retained fluid in the Rebecca pouch with the proximal aspect of Rebecca pouch is ulcerated, status post dilatation and transanal drainage. CT scan of abdomen pelvis done on August 20, 2019 showed resolution of pelvic fluid collection with a fistulous tract between Rebecca pouch and pelvic pelvic small bowel loop, improved enteritis, new moderate left hydro and mild right hydronephrosis. On August 30, 2019 underwent flex sig with placement of transanal drainage and bilateral ureteral stents. 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 CT/MRI of abdomen pelvis done on December 02, 2019 showed treatment response, reduction in rectal mass., Treatment with 5-FU alone was given on December 16, 2019 followed by break due to to hospitalization for small bowel obstruction and then scheduled for surgery. And SBO resolved on conservative management and patient was discharged home on TPN. On January 17, 2020 underwent colonoscopy with ascending colon snare polypectomy, exploratory laparotomy, extensive lysis of adhesions, completion proctectomy, takedown of end colostomy with creation of colonic J-pouch and end-to-end anastomosis. Cystoscopy and stent placement by urology team, patient was admitted to [facility] on January 25 2 January 30, 2020 with fever, pain, bloody ostomy, she underwent ileoscopy on January 28, 2020 it was normal and no bleeding was seen Patient was seen by colorectal surgery on February 11, 2020 and recommended to complete 6 months of chemotherapy and then reverse in 3 months following completion of chemotherapy. Patient completed 11 cycles of total chemotherapy on April 06, 2020. And during follow-up on June 12, 2020 she underwent excision of anal lesion, pathology consistent with metastatic adenocarcinoma. No rectovaginal fistula. On June 19, 2020 reexcision of perianal adenocarcinoma with additional margin and pathology positive for adenocarcinoma with clear margin. Patient underwent CT scan of chest abdomen pelvis on July 24, 2020 which showed pericecal nodule worrisome for metastatic disease and fluid collection in the presacral space she was admitted to [facility] from July 20- for possible presacral abscess seen on the scan which was drained and culture came back negative but pathology showed metastatic adenocarcinoma and patient was started on systemic chemotherapy with FOLFIRI, which she tolerated well and her second cycle was given on August 17, 2020, patient is considering switching her care to [place] because of inconvenience of traveling back and forth to [place]. She started with third cycle of FOLFIRI here in [place] on 09/10/2020. Ms Brice went [place] [facility] on 09/17/2020 with abdominal pain, nausea vomiting, lab work-up including urine analysis showed no abnormality, amylase was within normal range. Patient treated symptomatically and improved. As per patient, she stayed dehydrated all the time so she drink lots of water and her nausea vomiting started when she was working her yard, she thinks that she may have overdone it. She also has history of migraine headaches. She completed cycle 4 on September 24, 2020. Ms. Brice is here today for follow-up and consideration of cycle 6 FOLFIRI. She was seen Helena Johnson NP at [facility] oncology on 10/05/2020. She had been reporting headache after chemotherapy and lip tingling for the past 3 weeks. She is getting FOLFIRI treatment. She has had no trouble with her ostomy output and was not having abdominal pain. 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 Improved presacral fluid collection with thin residual rim-enhancing collection. Stable omental thickening without discrete nodularity. No definite CT evidence of metastatic disease in the chest. The recommendation was to proceed with FOLFIRI and reimage her in 6 weeks to reassess for continued progression. Her CEA on 10/05/2020 was 5.5. It was recommended that she have a brain MRI to rule out metastasis given that she has headache after chemotherapy and also has neuropathy in her lips. We did arrange this for her. However I am suspicious that this may be related to her premed of palonosetron as it is a common side effect to have headache after treatment. She will return to [place] in 6 weeks for follow-up and repeat scans. Her last dose was of FOLFiRI on October 08, 2020. She has no new concerns today. She did have the MRI of the brain with and without contrast on 10/21/2020. There were no evidence of metastatic disease to the brain. 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 Her had headaches have been better overall with stopping the Aloxi and relying on ondansetron as part of her premed/prechemo regimen. Patient had a follow-up CT scan of chest abdomen pelvis done At [facility] on November 16, 2020 which showed no significant change in the centrally necrotic mass with nodular peripheral enhancement centered in the presacral space representing biopsy-proven metastatic adenocarcinoma. No significant change in the presacral fluid collection and omental thickening without discrete nodularities. No evidence of metastatic disease in the chest, Patient was evaluated in oncology clinic at [facility] on November 16, 2020 at that time based on follow-up CT scan of chest abdomen pelvis finding it was recommended to continue FOLFIRI for another 3 months and then repeat CT scan of chest abdomen pelvis unless patient develops new symptoms, So on February 15, 2021 she underwent follow-up CT scan of chest abdomen pelvis which showed no progressive disease identified in chest abdomen or pelvis. Unchanged appearance of recurrence/metastatic rectal cancer with fistulization to the adjacent sigmoid colon and cecum with small presacral gas collection. New 2 mm left lower lobe pulmonary nodule. Improved right-sided hydronephrosis. New left-sided sacral insufficiency fracture., Patient was evaluated by Dr. Cooney at [facility] and was recommended to continue with FOLFIRI for another 3 months and then repeat scans. Came for follow-up, denies any specific complaints except persistent lower tailbone/back pain/discomfort but under control with current pain medication, patient recently underwent follow-up scan of chest abdomen pelvis at [facility] which shows stable findings and new left sided sacral insufficiency fracture which may be causing her tailbone pain, patient was evaluated at [facility] and was advised to continue FOLFIRI for another 3 months and then followed by scans at [facility]. Patient is here to resume her chemotherapy with FOLFIRI for another 3 months. Denies any fever chills denies any nausea or vomiting denies any diarrhea or constipation denies any mouth sores denies any peripheral numbness. Tolerating FOLFIRI well otherwise Medications: Daily Vitamin 1 Tablet Oral daily, Dexamethasone 2 Tablet (of 4 mg) Oral PRN, Ibuprofen 1 Tablet (of 800 mg) Oral q 6 hours PRN, Lexapro 1 Tablet (of 10 mg) Oral daily, Ondansetron HCl 1 Tablet (of 8 mg) Oral PRN, Pantoprazole Sodium 1 Tablet (of 40 mg) Tablet, enteric coated Oral daily, traMADol HCl 1 Each (of 100 mg) Tablet Oral ac (tid) PRN Allergies: pecan nuts, Penicillins, and walnuts. Review of Systems: Review of Systems is not available for this patient. Vital Signs: Performed on Mar 04, 2021 08:26 Height - 69.00 in Weight - 151 lbs (HIGH) BSA - 1.83 sq.m BMI - 22.30 Temperature - 97.5 F (LOW) Pulse - 80 /min Respiration - 18 /min BP - 114/77 mm(hg) O2 Sat - 99 % Pain - 0 Fatigue - 0 Performance Status: 0 - Fully active, able to carry on all predisease activities without restrictions. (ECOG) Physical Examination: ENMT - No mouth sores, no thrush, no jaundice, Respiratory - Lungs are clear to auscultation, Cardiovascular - Regular rate and rhythm of heart, Abdomen - Soft, bowel sounds present, Extremities - No visible edema. Lab/Imaging: Test performed on Feb 15, 2021 10:25 Glucose 91 mg/dL BUN 11 mg/dL Creatinine 0.9 mg/dL Cr Clearance (Est) 71.35 mL/min Sodium 139 mmol/L Potassium 3.9 mmol/L Chloride 104 mmol/L CO2 28 mmol/L Calcium 8.8 mg/dL Albumin 4.0 g/dL Bilirubin, Total 0.4 mg/dL Alkaline Phosphatase 106 International Units/L AST (SGOT) 16 International Units/L ALT (SGPT) 11 International Units/L WBC 4.3 10^9/L HGB 11.7 g/dL HCT 35.1 % MCV 92.0 fl Platelet Count 241 10^9/L Test performed on Oct 22, 2020 12:15 RBC 3.71 10 6/uL MCH 29.9 pg MCHC 31.0 g/dL RDW 17.0 % MPV 9.9 fL Neutrophils 3.21 10 3/uL Lymphocytes 1.2 10 3/uL Monocytes 0.5 10 3/uL Eosinophils 0.4 10 3/uL Basophils 0.0 10 3/uL Neutrophil % 60.7 % Lymphocyte % 21.8 % Monocyte % 8.5 % Eosinophil % 7.8 % Basophils % 0.8 % NRBC % 0 % Test performed on Oct 21, 2020 10:16 Anion Gap 13.2 eGFR 85.4 mL/min Osmolality - Calculated 288 mOsm/kg Protein, Total 6.1 g/dL Globulin 2.0 g/dL Impression: Recurrent rectal cancer per presacral biopsy done in June 2020 History of stage IIIc, T4 N2 M0 locally advanced rectal adenocarcinoma presenting with perforation diagnosed in early 2019 Status post clinical trial with Epacodostat/capox,, patient developed colitis later on she was switched to FOLFOX on September 09, 2019, oxaliplatin was discontinued after third cycle on October 07, 2019 subsequently continue with 5-FU alone till April 06, 2020, On June 12, 2020 underwent excision of anal lesion which was consistent with metastatic adenocarcinoma and on June 19, 2020 underwent reexcision of perianal adenocarcinoma with clear margin, patient was started on FOLFIRI July 19, 2020 at [facility]. She continues to followup with her physician there but is receiving her treatments locally.Follow-up CT scan of chest abdomen pelvis done on November 16, 2020 showed no significant change in the centrally necrotic mass with nodular peripheral enhancement centered in the presacral space representing biopsy-proven metastatic adenocarcinoma. No significant change in the presacral fluid collection and omental thickening without discrete nodularities. No evidence of metastatic disease in the chest, was recommended to continue FOLFIRI for 3 more months and then repeat scans History of DVT,, Treated with Eliquis, now stopped Plan: . Discussed with patient regarding her labs white blood count 3.9 hemoglobin 12 hematocrit 38.5 platelets 225,000 CMP within normal limits except alk phos 124 compared to 106 previously Clinically, patient is doing well with no new signs symptoms history of disease progression, she recently underwent follow-up CT scan of chest abdomen pelvis at [facility] in [place] which shows stable findings, no evidence of disease progression, patient was advised to continue FOLFIRI for another 3 months and then reevaluation with follow-up CT scan of chest abdomen pelvis., So she will proceed with her next cycle of FOLFIRI today and then return to clinic in 2 weeks with CBC CMP Signed By: Filemon Hickey M.D. <<Signature on File>>
[2021-03-16 14:40] LABS: Basophils % 0.4 %; Eosinophils # 0.1 10^3/uL (0.0-0.8); Eosinophils % 2.1 %; Hematocrit 36.7 % (37.0-47.0); Hemoglobin 11.8 g/dL (11.5-15.3); Lymphocytes # 1.1 10^3/uL (0.8-4.8); Lymphocytes % 23.4 %; Mean Corpuscular HGB Conc 32.2 g/dL (30.0-36.0); Mean Corpuscular Hemoglobin 30.9 pg (28.0-34.0); Mean Corpuscular Volume 96.1 fl (81-99); Mean Platelet Volume 10.2 fL (7.4-10.4); Monocytes # 0.4 10^3/uL (0.2-0.9); Monocytes % 8.9 %; Neutrophils # 3.06 10^3/uL (1.8-7.7); Nucleated Red Blood Cells % 0 %; Platelet Count 172 10^3/cmm (130-400); Red Blood Count 3.82 10^6/uL (4.1-5.3); Red Cell Distribution Width 14.9 % (12.1-15.1); White Blood Count 4.7 10^3/uL (4.0-10.0)
[2021-03-16 14:53] LABS: Alanine Aminotransferase 9 U/L (0-33); Albumin Level 3.8 g/dL (3.5-5.2); Alkaline Phosphatase 124 IU/L (35-105); Anion Gap 16.9 (5-19); Aspartate Amino Transferase 15 U/L (0-32); Blood Urea Nitrogen 9 mg/dL (8-23); Calcium 8.4 mg/dL (8.5-10.5); Carbon Dioxide 21 mmol/L (22-29); Chloride 103 mmol/L (98-107); Globulin 2.3 g/dL (1.3-4.6); Glomerular Filtration Rate 101.6 mL/min (90-130); Glucose 123 mg/dL (65-115); Osmolality Calculated 284 mOsm/kg (285-295); Potassium 3.9 mmol/L (3.5-5.1); Sodium 137 mmol/L (136-145); Total Bilirubin 0.2 mg/dL (0.15-1.2); Total Protein 6.1 g/dL (6.6-8.7)
[2021-03-17] MEDS: acetaminophen 325 mg Tablet 650 MG PO (11:07)
[2021-03-17] MEDS: dextrose 5% 250 ML 75 ML IV (11:07)
[2021-03-17] MEDS: famotidine 20 mg/2 mL INJ IVP (11:07)
[2021-03-17] MEDS: ondansetron 2 mg/ML SDV 2 mL 8 MG IV (11:10)
--- NOTE | 2021-04-01 16:39 | ONC FU_ITS ---
[facility] Patient Note Patient: Kathryn Brice Unit #: [id number]: [id number] Dictated By: Shreya GrantDate of Visit: Mar 17, 2021 Onc MED Follow-Up/Prog Note Chief Complaint: Recurrent rectal adenocarcinoma History of Present Illness: Ms. Brice is a 61-year-old female who was admitted to hospital with abdominal pain, nausea/vomiting and s 20 pound weight loss over the period of 3 months on May 05, 2019. She underwent CT scan of abdomen which showed rectal wall thickening and a mass. A CT scan of abdomen done on May 06, 2019 showed sigmoid pneumatosis consistent with perforation. Ms. Brice underwent flex sigmoidoscopy on May 08, 2019 subsequently diagnostic laparoscopy converted to laparotomy with Molina procedure by Dr. Burch. The pathology showed moderately differentiated invasive adenocarcinoma from the rectal mass biopsy. MMR staining retained by IHC, 11 lymph nodes were negative for metatatic disease. On May 14, 2019 follow-up CT scan of abdomen pelvis showed postoperative changes with fluid and edema adjacent from Rebecca pouch consistent with a leak with peritonitis and ileus. Unchanged rectal mass with a perirectal, perisacral, left common iliac and retroperitoneal lymphadenopathy. Fluid drained by interventional radiologist on May 14, 2019 with the drainage catheter removed on May 17, 2019. On May 27, 2019, pelvic MRIs showed 5.5 cm high rectal mass with multiple mesorectal and inferior mesenteric artery lymph nodes e.g. T4, N2. Postsurgical changes with consistent with dehiscence of Rebecca's pouch, enlarged left common iliac node. On June 07, 2019 CT scan of chest showed 2 1 to 2 cm nodules within lateral basal segment of left lower lobe and and 1.7 x 1.3 right hilar lymph node. Ms Brice was placed on the Epacodostat clinical trial with a short course radiation therapy 3500 rad from June 10-2019. A CT scan of chest abdomen pelvis done on June 13, 2019 showed resolution of pelvic collection with residual soft tissue thickening along Molina's pouch, stable rectal mass and stable LAD. She was started on cycle 1 day 1 CAPOX on July 01, 2019. Patient was admitted to [facility] on July 14-2019 for abdominal pain, nausea vomiting likely radiation enteritis versus chemo toxicity from oral Xeloda but less likely immunotherapy related (epacodostat). She was restarted on Epacodostat on July 18, 2019. CT scan of abdomen pelvis done on July 29, 2019 showed dehiscence of Molina's pouch with fistulization to the adjacent small bowel, and increasing small bowel and rectal wall thickening and edema. Patient was admitted to [facility] again on July 29, 2019 through August 07, 2019 for abdominal pain, flex sig done on July 30, 2019 showed partially obstructing ulcerated mass with retained fluid in the Rebecca pouch with the proximal aspect of Rebecca pouch is ulcerated, status post dilatation and transanal drainage. CT scan of abdomen pelvis done on August 20, 2019 showed resolution of pelvic fluid collection with a fistulous tract between Rebecca pouch and pelvic pelvic small bowel loop, improved enteritis, new moderate left hydro and mild right hydronephrosis. On August 30, 2019 underwent flex sig with placement of transanal drainage and bilateral ureteral stents. 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 CT/MRI of abdomen pelvis done on December 02, 2019 showed treatment response, reduction in rectal mass., Treatment with 5-FU alone was given on December 16, 2019 followed by break due to to hospitalization for small bowel obstruction and then scheduled for surgery. And SBO resolved on conservative management and patient was discharged home on TPN. On January 17, 2020 underwent colonoscopy with ascending colon snare polypectomy, exploratory laparotomy, extensive lysis of adhesions, completion proctectomy, takedown of end colostomy with creation of colonic J-pouch and end-to-end anastomosis. Cystoscopy and stent placement by urology team, patient was admitted to [facility] on January 25 2 January 30, 2020 with fever, pain, bloody ostomy, she underwent ileoscopy on January 28, 2020 it was normal and no bleeding was seen Patient was seen by colorectal surgery on February 11, 2020 and recommended to complete 6 months of chemotherapy and then reverse in 3 months following completion of chemotherapy. Patient completed 11 cycles of total chemotherapy on April 06, 2020. And during follow-up on June 12, 2020 she underwent excision of anal lesion, pathology consistent with metastatic adenocarcinoma. No rectovaginal fistula. On June 19, 2020 reexcision of perianal adenocarcinoma with additional margin and pathology positive for adenocarcinoma with clear margin. Patient underwent CT scan of chest abdomen pelvis on July 24, 2020 which showed pericecal nodule worrisome for metastatic disease and fluid collection in the presacral space she was admitted to [facility] from July 20- for possible presacral abscess seen on the scan which was drained and culture came back negative but pathology showed metastatic adenocarcinoma and patient was started on systemic chemotherapy with FOLFIRI, which she tolerated well and her second cycle was given on August 17, 2020, patient is considering switching her care to [place] because of inconvenience of traveling back and forth to [place]. She started with third cycle of FOLFIRI here in [place] on 09/10/2020. Ms Brice went to [facility] on 09/17/2020 with abdominal pain, nausea vomiting, lab work-up including urine analysis showed no abnormality, amylase was within normal range. Patient treated symptomatically and improved. As per patient, she stayed dehydrated all the time so she drink lots of water and her nausea vomiting started when she was working her yard, she thinks that she may have overdone it. She also has history of migraine headaches. She completed cycle 4 on September 24, 2020. Ms. Brice is here today for follow-up and consideration of cycle 6 FOLFIRI. She was seen Helena Johnson NP at [facility] [place] oncology on 10/05/2020. She had been reporting headache after chemotherapy and lip tingling for the past 3 weeks. She is getting FOLFIRI treatment. She has had no trouble with her ostomy output and was not having abdominal pain. 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 Improved presacral fluid collection with thin residual rim-enhancing collection. Stable omental thickening without discrete nodularity. No definite CT evidence of metastatic disease in the chest. The recommendation was to proceed with FOLFIRI and reimage her in 6 weeks to reassess for continued progression. Her CEA on 10/05/2020 was 5.5. It was recommended that she have a brain MRI to rule out metastasis given that she has headache after chemotherapy and also has neuropathy in her lips. We did arrange this for her. However I am suspicious that this may be related to her premed of palonosetron as it is a common side effect to have headache after treatment. She will return to [place] in 6 weeks for follow-up and repeat scans. Her last dose was of FOLFiRI on October 08, 2020. She has no new concerns today. She did have the MRI of the brain with and without contrast on 10/21/2020. There were no evidence of metastatic disease to the brain. 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 Her had headaches have been better overall with stopping the Aloxi and relying on ondansetron as part of her premed/prechemo regimen. Patient had a follow-up CT scan of chest abdomen pelvis done At [facility] on November 16, 2020 which showed no significant change in the centrally necrotic mass with nodular peripheral enhancement centered in the presacral space representing biopsy-proven metastatic adenocarcinoma. No significant change in the presacral fluid collection and omental thickening without discrete nodularities. No evidence of metastatic disease in the chest, Patient was evaluated in oncology clinic at [facility] on November 16, 2020 at that time based on follow-up CT scan of chest abdomen pelvis finding it was recommended to continue FOLFIRI for another 3 months and then repeat CT scan of chest abdomen pelvis unless patient develops new symptoms, On February 15, 2021, she underwent follow-up CT scan of chest abdomen pelvis which showed no progressive disease identified in chest abdomen or pelvis. Unchanged appearance of recurrence/metastatic rectal cancer with fistulization to the adjacent sigmoid colon and cecum with small presacral gas collection. New 2 mm left lower lobe pulmonary nodule. Improved right-sided hydronephrosis. New left-sided sacral insufficiency fracture. Ms Brice was evaluated by Dr. Cooney at [facility] and was recommended to continue with FOLFIRI for another 3 months and then repeat scans. She continues with FOLFIRINOX. Her last treatment was on March 04, 2021. She states overall she is doing about the same. She has noticed that she has been having a headache which she describes as mild to moderate at times but notices it particularly after treatment. She feels is related to the irinotecan. She states that she has had no nausea or vomiting. She denies any particular diarrhea or constipation. She states her bowels are loose at times but overall it is unchanged. She has had no persistent neuropathy symptoms. She states she has not had any skin rash or lesions. She denies any skin changes on her hands such as fistulas or skin peeling. She is had now on her feet as well. States her appetite is fair. Energy is good for the most part. She is requesting that her next appointment be at 3 weeks instead of 2 because she will be out of town. Her ECOG is one. Past Medical History: Gout Hydronephrosis Mitral valve prolapse Perforated diverticulum Past Surgical History: Appendectomy Bladder surgery Lower anterior resection Tubal ligation Ureteral stent placement Covid vaccine #3 in 2020 Covid vaccine #2 in 2020 Covid vaccine #1 in 2020 Allergies: pecan nuts, Penicillins, and walnuts. Medications: Daily Vitamin 1 Tablet Oral daily Dexamethasone 2 Tablet (of 4 mg) Oral PRN Ibuprofen 1 Tablet (of 800 mg) Oral q 6 hours PRN Lexapro 1 Tablet (of 10 mg) Oral daily Ondansetron HCl 1 Tablet (of 8 mg) Oral PRN Pantoprazole Sodium 1 Tablet (of 40 mg) Tablet, enteric coated Oral daily traMADol HCl 1 Each (of 100 mg) Tablet Oral ac (tid) PRN Family History: Ms. Brice's mother at age 83: congestive heart failure, and cirrhosis. Ms. Brice's father at age 80: chronic obstructive pulmonary disease. Ms. Brice has 1 brother who is : overdosage. Social History: Ms. Brice is . Ms. Brice no longer smokes. Review Of Symptoms: <See Above> Vital Signs: Performed on Mar 17, 2021 10:06 Height - 69.00 in Weight - 152 lbs (HIGH) BSA - 1.84 sq.m BMI - 22.45 Temperature - 98.2 F (LOW) Pulse - 77 /min Respiration - 18 /min BP - 117/73 mm(hg) O2 Sat - 96 % Pain - 4 Fatigue - 3,0 - Fully active, able to carry on all predisease activities without restrictions. (ECOG) Physical Examination: Constitutional Alert, oriented, no acute distress. Skin pink, warm and dry. Head Normocephalic; atraumatic. Eyes Conjunctivae and sclerae are clear and without icterus. Pupils are reactive and equal. Neck Supple without masses or thyromegaly. No jugular venous distension. Hematologic/Lymphatic No petechiae or purpura. No tender or palpable lymph nodes in the cervical or supraclavicular areas. Respiratory Lungs are clear to auscultation without rhonchi or wheezing. Cardiovascular Regular rate and rhythm of heart without murmurs,clicks, gallops or rubs. Chest Right chest wall venous access device insertion site is unremarkable. Back/Spine Non-tender to palpation. Extremities No visible deformities, no cyanosis, clubbing or edema. Musculoskeletal No tenderness or swelling, normal range of motion without obvious weakness. Integumentary No rashes or lesions. Neurologic No sensory or motor deficits, normal cerebellar function, normal gait. Psychiatric Alert and oriented times three. Coherent speech. Verbalizes understanding of our discussions today. Laboratory:Test performed on Feb 15, 2021 10:25 Glucose 91 mg/dL BUN 11 mg/dL Creatinine 0.9 mg/dL Cr Clearance (Est) 71.35 mL/min Sodium 139 mmol/L Potassium 3.9 mmol/L Chloride 104 mmol/L CO2 28 mmol/L Calcium 8.8 mg/dL Albumin 4.0 g/dL Bilirubin, Total 0.4 mg/dL Alkaline Phosphatase 106 International Units/L AST (SGOT) 16 International Units/L ALT (SGPT) 11 International Units/L WBC 4.3 10^9/L HGB 11.7 g/dL HCT 35.1 % MCV 92.0 fl Platelet Count 241 10^9/L Test performed on Oct 22, 2020 12:15 RBC 3.71 10 6/uL MCH 29.9 pg MCHC 31.0 g/dL RDW 17.0 % MPV 9.9 fL Neutrophils 3.21 10 3/uL Lymphocytes 1.2 10 3/uL Monocytes 0.5 10 3/uL Eosinophils 0.4 10 3/uL Basophils 0.0 10 3/uL Neutrophil % 60.7 % Lymphocyte % 21.8 % Monocyte % 8.5 % Eosinophil % 7.8 % Basophils % 0.8 % NRBC % 0 % Test performed on Oct 21, 2020 10:16 Anion Gap 13.2 eGFR 85.4 mL/min Osmolality - Calculated 288 mOsm/kg Protein, Total 6.1 g/dL Globulin 2.0 g/dL Impression: 1. Recurrent rectal cancer per presacral biopsy done in June 2020 History of stage IIIc, T4 N2 M0 locally advanced rectal adenocarcinoma presenting with perforation diagnosed in early 2019 Status post clinical trial with Epacodostat/capox,, patient developed colitis later on she was switched to FOLFOX on September 09, 2019, oxaliplatin was discontinued after third cycle on October 07, 2019 subsequently continue with 5-FU alone till April 06, 2020, On June 12, 2020 underwent excision of anal lesion which was consistent with metastatic adenocarcinoma and on June 19, 2020 underwent reexcision of perianal adenocarcinoma with clear margin, patient was started on FOLFIRI July 19, 2020 at [facility]. She continues to followup with her physician there but is receiving her treatments locally. 2. History of DVT: Treated with Eliquis, now stopped Plan/Problems Addressed at this Visit: 1. Recurrent rectal cancer per presacral biopsy done in June 2020 History of stage IIIc, T4 N2 M0 locally advanced rectal adenocarcinoma presenting with perforation diagnosed in early 2019 Status post clinical trial with Epacodostat/capox,, patient developed colitis later on she was switched to FOLFOX on September 09, 2019, oxaliplatin was discontinued after third cycle on October 07, 2019 subsequently continue with 5-FU alone till April 06, 2020, On June 12, 2020 underwent excision of anal lesion which was consistent with metastatic adenocarcinoma and on June 19, 2020 underwent reexcision of perianal adenocarcinoma with clear margin, patient was started on FOLFIRI July 19, 2020 at [facility]. She continues to followup with her physician there but is receiving her treatments locally. Follow-up CT scan of chest abdomen pelvis done on November 16, 2020 showed no significant change in the centrally necrotic mass with nodular peripheral enhancement centered in the presacral space representing biopsy-proven metastatic adenocarcinoma. No significant change in the presacral fluid collection and omental thickening without discrete nodularities. No evidence of metastatic disease in the chest, was recommended to continue FOLFIRI for 3 more months and then repeat scans. January 2021, she underwent follow-up CT scan of chest abdomen pelvis at [facility] in [place] which shows stable findings, no evidence of disease progression. She was advised to continue FOLFIRI for another 3 months and then reevaluation with follow-up CT scan of chest abdomen pelvis. She continues with FOLFIRI with her last treatment on March 04, 2021. She is tolerating it well overall. A. Proceed with cycle 15 FOLFIRINOX at previous dosing. B. I have added Tylenol 650 mg as a premed to see if this will wang off her irinotecan headache . C. Her antiemetics remain the same as they are working well. D. Labs from March 16, 2021 reviewed in detail discussed with Ms. Brice and a copy was given to her. WBC 4.7, hemoglobin 11.8, platelets 1 72,000, ANC is 3060. Potassium 3.9 creatinine 0.6 random glucose 123 LFTs are normal. E. We will plan to see her back in 3 weeks at her request as she will be out of town for her appointment that is due in 2 weeks. F. Have requested repeat CBC CMP as well as follow-up visit prior to her next chemo. G. Ms. Brice was instructed to contact us in interim should questions or problems arise. Signed By: Shreya Grant-, AOCNP Filemon Hickey MD <<Signature on File>>
== END 2021-03-30 23:59 | disposition home or self-care (01) ==
LOC: ONCMED 09:52
PROVIDERS: Internal Medicine Hematology & Oncology; PCP Family Medicine; Visit Provider Nurse Practitioner
DX: Z51.11 Encounter for antineoplastic chemotherapy (principal); C20 Malignant neoplasm of rectum; C78.5 Secondary malignant neoplasm of large intestine and rectum; Z86.718 Personal history of other venous thrombosis and embolism; Z79.899 Other long term (current) drug therapy
CPT/HCPCS: 36591; 80053; 85025; 96367; 96368; 96375; 96413; 96415; 96416; 96523; 99215; J0461; J0640; J1100; J2405; J3490; J9190; J9206

== ENCOUNTER → 2021-04-13 14:57 | Outpatient (BNVA) | payer OTHER, SELFPAY | PROVIDERS: PCP Family Medicine; Visit Provider Orthopaedic Surgery | DX: S79.912A Unspecified injury of left hip, initial encounter (principal); S79.911A Unspecified injury of right hip, initial encounter; X58.XXXA Exposure to other specified factors, initial encounter; M16.0 Bilateral primary osteoarthritis of hip | CPT/HCPCS: 72170 ==

== ENCOUNTER 2021-04-22 06:18 | Outpatient (RCR) | payer OTHER, SELFPAY ==
[2021-04-07 13:23] LABS: Basophils % 0.9 %; Eosinophils # 0.1 10^3/uL (0.0-0.8); Eosinophils % 2.2 %; Hematocrit 41.2 % (37.0-47.0); Hemoglobin 13.3 g/dL (11.5-15.3); Lymphocytes # 1.1 10^3/uL (0.8-4.8); Lymphocytes % 25.6 %; Mean Corpuscular HGB Conc 32.3 g/dL (30.0-36.0); Mean Corpuscular Hemoglobin 30.4 pg (28.0-34.0); Mean Corpuscular Volume 94.3 fl (81-99); Mean Platelet Volume 10.9 fL (7.4-10.4); Monocytes # 0.4 10^3/uL (0.2-0.9); Monocytes % 8.5 %; Neutrophils # 2.78 10^3/uL (1.8-7.7); Neutrophils % 62.6 %; Nucleated Red Blood Cells % 0 %; Platelet Count 211 10^3/cmm (130-400); Red Blood Count 4.37 10^6/uL (4.1-5.3); Red Cell Distribution Width 14.5 % (12.1-15.1); White Blood Count 4.5 10^3/uL (4.0-10.0)
[2021-04-07 13:45] LABS: Alanine Aminotransferase 11 U/L (0-33); Albumin Level 4.3 g/dL (3.5-5.2); Alkaline Phosphatase 140 IU/L (35-105); Anion Gap 18.2 (5-19); Aspartate Amino Transferase 17 U/L (0-32); Blood Urea Nitrogen 13 mg/dL (8-23); Calcium 8.7 mg/dL (8.5-10.5); Carbon Dioxide 20 mmol/L (22-29); Chloride 104 mmol/L (98-107); Globulin 2.2 g/dL (1.3-4.6); Glomerular Filtration Rate 85.1 mL/min (90-130); Glucose 140 mg/dL (65-115); Osmolality Calculated 288 mOsm/kg (285-295); Potassium 4.2 mmol/L (3.5-5.1); Sodium 138 mmol/L (136-145); Total Bilirubin 0.2 mg/dL (0.15-1.2); Total Protein 6.5 g/dL (6.6-8.7)
[2021-04-08] MEDS: sodium chloride 0.9% 250 ML 75 ML IV (08:55)
[2021-04-08] MEDS: ondansetron 2 mg/ML SDV 2 mL 8 MG IVP (08:55)
[2021-04-08] MEDS: famotidine 20 mg/2 mL INJ IVP (08:57)
--- NOTE | 2021-04-08 09:04 | ONC FU_ITS ---
Dr. Hickey follow up note Patient: Kathryn Brice Unit #: [id number]: 1960 Dicatated By: Filemon Hickey M.D.Date of Visit:Apr 08, 2021 Onc Med Follow-up/Prog Note History of Present Illness: Ms. Brice is a 61-year-old female who was admitted to hospital with abdominal pain, nausea/vomiting and s 20 pound weight loss over the period of 3 months on May 05, 2019. She underwent CT scan of abdomen which showed rectal wall thickening and a mass. A CT scan of abdomen done on May 06, 2019 showed sigmoid pneumatosis consistent with perforation. Ms. Brice underwent flex sigmoidoscopy on May 08, 2019 subsequently diagnostic laparoscopy converted to laparotomy with Molina procedure by Dr. Burch. The pathology showed moderately differentiated invasive adenocarcinoma from the rectal mass biopsy. MMR staining retained by IHC, 11 lymph nodes were negative for metatatic disease. On May 14, 2019 follow-up CT scan of abdomen pelvis showed postoperative changes with fluid and edema adjacent from Rebecca pouch consistent with a leak with peritonitis and ileus. Unchanged rectal mass with a perirectal, perisacral, left common iliac and retroperitoneal lymphadenopathy. Fluid drained by interventional radiologist on May 14, 2019 with the drainage catheter removed on May 17, 2019. On May 27, 2019, pelvic MRIs showed 5.5 cm high rectal mass with multiple mesorectal and inferior mesenteric artery lymph nodes e.g. T4, N2. Postsurgical changes with consistent with dehiscence of Rebecca's pouch, enlarged left common iliac node. On June 07, 2019 CT scan of chest showed 2 1 to 2 cm nodules within lateral basal segment of left lower lobe and and 1.7 x 1.3 right hilar lymph node. Ms Brice was placed on the Epacodostat clinical trial with a short course radiation therapy 3500 rad from June 10-2019. A CT scan of chest abdomen pelvis done on June 13, 2019 showed resolution of pelvic collection with residual soft tissue thickening along Molina's pouch, stable rectal mass and stable LAD. She was started on cycle 1 day 1 CAPOX on July 01, 2019. Patient was admitted to [facility] on July 14-2019 for abdominal pain, nausea vomiting likely radiation enteritis versus chemo toxicity from oral Xeloda but less likely immunotherapy related (epacodostat). She was restarted on Epacodostat on July 18, 2019. CT scan of abdomen pelvis done on July 29, 2019 showed dehiscence of Molina's pouch with fistulization to the adjacent small bowel, and increasing small bowel and rectal wall thickening and edema. Patient was admitted to [facility] again on July 29, 2019 through August 07, 2019 for abdominal pain, flex sig done on July 30, 2019 showed partially obstructing ulcerated mass with retained fluid in the Rebecca pouch with the proximal aspect of Rebecca pouch is ulcerated, status post dilatation and transanal drainage. CT scan of abdomen pelvis done on August 20, 2019 showed resolution of pelvic fluid collection with a fistulous tract between Rebecca pouch and pelvic pelvic small bowel loop, improved enteritis, new moderate left hydro and mild right hydronephrosis. On August 30, 2019 underwent flex sig with placement of transanal drainage and bilateral ureteral stents. 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 CT/MRI of abdomen pelvis done on December 02, 2019 showed treatment response, reduction in rectal mass., Treatment with 5-FU alone was given on December 16, 2019 followed by break due to to hospitalization for small bowel obstruction and then scheduled for surgery. And SBO resolved on conservative management and patient was discharged home on TPN. On January 17, 2020 underwent colonoscopy with ascending colon snare polypectomy, exploratory laparotomy, extensive lysis of adhesions, completion proctectomy, takedown of end colostomy with creation of colonic J-pouch and end-to-end anastomosis. Cystoscopy and stent placement by urology team, patient was admitted to [facility] on January 25 2 January 30, 2020 with fever, pain, bloody ostomy, she underwent ileoscopy on January 28, 2020 it was normal and no bleeding was seen Patient was seen by colorectal surgery on February 11, 2020 and recommended to complete 6 months of chemotherapy and then reverse in 3 months following completion of chemotherapy. Patient completed 11 cycles of total chemotherapy on April 06, 2020. And during follow-up on June 12, 2020 she underwent excision of anal lesion, pathology consistent with metastatic adenocarcinoma. No rectovaginal fistula. On June 19, 2020 reexcision of perianal adenocarcinoma with additional margin and pathology positive for adenocarcinoma with clear margin. Patient underwent CT scan of chest abdomen pelvis on July 24, 2020 which showed pericecal nodule worrisome for metastatic disease and fluid collection in the presacral space she was admitted to [facility] from July 20- for possible presacral abscess seen on the scan which was drained and culture came back negative but pathology showed metastatic adenocarcinoma and patient was started on systemic chemotherapy with FOLFIRI, which she tolerated well and her second cycle was given on August 17, 2020, patient is considering switching her care to [place] because of inconvenience of traveling back and forth to [place]. She started with third cycle of FOLFIRI here in [place] on 09/10/2020. Ms Brice went to [facility] on 09/17/2020 with abdominal pain, nausea vomiting, lab work-up including urine analysis showed no abnormality, amylase was within normal range. Patient treated symptomatically and improved. As per patient, she stayed dehydrated all the time so she drink lots of water and her nausea vomiting started when she was working her yard, she thinks that she may have overdone it. She also has history of migraine headaches. She completed cycle 4 on September 24, 2020. Ms. Brice is here today for follow-up and consideration of cycle 6 FOLFIRI. She was seen Helena Johnson NP at [facility] oncology on 10/05/2020. She had been reporting headache after chemotherapy and lip tingling for the past 3 weeks. She is getting FOLFIRI treatment. She has had no trouble with her ostomy output and was not having abdominal pain. 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 Improved presacral fluid collection with thin residual rim-enhancing collection. Stable omental thickening without discrete nodularity. No definite CT evidence of metastatic disease in the chest. The recommendation was to proceed with FOLFIRI and reimage her in 6 weeks to reassess for continued progression. Her CEA on 10/05/2020 was 5.5. It was recommended that she have a brain MRI to rule out metastasis given that she has headache after chemotherapy and also has neuropathy in her lips. We did arrange this for her. However I am suspicious that this may be related to her premed of palonosetron as it is a common side effect to have headache after treatment. She will return to [place] in 6 weeks for follow-up and repeat scans. Her last dose was of FOLFiRI on October 08, 2020. She has no new concerns today. She did have the MRI of the brain with and without contrast on 10/21/2020. There were no evidence of metastatic disease to the brain. 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 Her had headaches have been better overall with stopping the Aloxi and relying on ondansetron as part of her premed/prechemo regimen. Patient had a follow-up CT scan of chest abdomen pelvis done At [facility] on November 16, 2020 which showed no significant change in the centrally necrotic mass with nodular peripheral enhancement centered in the presacral space representing biopsy-proven metastatic adenocarcinoma. No significant change in the presacral fluid collection and omental thickening without discrete nodularities. No evidence of metastatic disease in the chest, Patient was evaluated in oncology clinic at [facility] on November 16, 2020 at that time based on follow-up CT scan of chest abdomen pelvis finding it was recommended to continue FOLFIRI for another 3 months and then repeat CT scan of chest abdomen pelvis unless patient develops new symptoms, On February 15, 2021, she underwent follow-up CT scan of chest abdomen pelvis which showed no progressive disease identified in chest abdomen or pelvis. Unchanged appearance of recurrence/metastatic rectal cancer with fistulization to the adjacent sigmoid colon and cecum with small presacral gas collection. New 2 mm left lower lobe pulmonary nodule. Improved right-sided hydronephrosis. New left-sided sacral insufficiency fracture. Ms Brice was evaluated by Dr. Cooney at [facility] and was recommended to continue with FOLFIRI for another 3 months and then repeat scans. Came for follow-up, denies any specific complaints, no fever chills, no nausea or vomiting, no diarrhea or constipation, no mouth sores, no abdominal pain, no worsening of mild numbness involving bilateral lower extremities. Tolerating systemic therapy with FOLFIRI well otherwise Medications: Daily Vitamin 1 Tablet Oral daily, Dexamethasone 2 Tablet (of 4 mg) Oral PRN, Ibuprofen 1 Tablet (of 800 mg) Oral q 6 hours PRN, Lexapro 1 Tablet (of 10 mg) Oral daily, Ondansetron HCl 1 Tablet (of 8 mg) Oral PRN, Pantoprazole Sodium 1 Tablet (of 40 mg) Tablet, enteric coated Oral daily, traMADol HCl 1 Each (of 100 mg) Tablet Oral ac (tid) PRN Allergies: pecan nuts, Penicillins, and walnuts. Review of Systems: Review of Systems is not available for this patient. Vital Signs: Performed on Apr 08, 2021 08:14 Height - 69.00 in Weight - 153.2 lbs (HIGH) BSA - 1.84 sq.m BMI - 22.62 Temperature - 96.8 F (LOW) Pulse - 87 /min Respiration - 18 /min BP - 142/78 mm(hg) (HIGH) O2 Sat - 98 % Pain - 2 Fatigue - 3 Performance Status: 0 - Fully active, able to carry on all predisease activities without restrictions. (ECOG) Physical Examination: ENMT - No mouth sores, no thrush, no jaundice, Respiratory - Lungs are clear to auscultation, Cardiovascular - Regular rate and rhythm of heart, Abdomen - Soft, bowel sounds present, Extremities - No visible edema. Lab/Imaging: Test performed on Feb 15, 2021 10:25 Glucose 91 mg/dL BUN 11 mg/dL Creatinine 0.9 mg/dL Cr Clearance (Est) 71.35 mL/min Sodium 139 mmol/L Potassium 3.9 mmol/L Chloride 104 mmol/L CO2 28 mmol/L Calcium 8.8 mg/dL Albumin 4.0 g/dL Bilirubin, Total 0.4 mg/dL Alkaline Phosphatase 106 International Units/L AST (SGOT) 16 International Units/L ALT (SGPT) 11 International Units/L WBC 4.3 10^9/L HGB 11.7 g/dL HCT 35.1 % MCV 92.0 fl Platelet Count 241 10^9/L Test performed on Oct 22, 2020 12:15 RBC 3.71 10 6/uL MCH 29.9 pg MCHC 31.0 g/dL RDW 17.0 % MPV 9.9 fL Neutrophils 3.21 10 3/uL Lymphocytes 1.2 10 3/uL Monocytes 0.5 10 3/uL Eosinophils 0.4 10 3/uL Basophils 0.0 10 3/uL Neutrophil % 60.7 % Lymphocyte % 21.8 % Monocyte % 8.5 % Eosinophil % 7.8 % Basophils % 0.8 % NRBC % 0 % Test performed on Oct 21, 2020 10:16 Anion Gap 13.2 eGFR 85.4 mL/min Osmolality - Calculated 288 mOsm/kg Protein, Total 6.1 g/dL Globulin 2.0 g/dL Impression: 1. Recurrent rectal cancer per presacral biopsy done in June 2020 History of stage IIIc, T4 N2 M0 locally advanced rectal adenocarcinoma presenting with perforation diagnosed in early 2019 Status post clinical trial with Epacodostat/capox,, patient developed colitis later on she was switched to FOLFOX on September 09, 2019, oxaliplatin was discontinued after third cycle on October 07, 2019 subsequently continue with 5-FU alone till April 06, 2020, On June 12, 2020 underwent excision of anal lesion which was consistent with metastatic adenocarcinoma and on June 19, 2020 underwent reexcision of perianal adenocarcinoma with clear margin, patient was started on FOLFIRI July 19, 2020 at [facility]. She continues to followup with her physician there but is receiving her treatments locally. 2. History of DVT: Treated with Eliquis, now stopped Plan: Discussed with patient regarding her labs white blood count 4.5 hemoglobin 13.3 hematocrit 41.2 platelets 211,000 CMP within normal limit except glucose 140 Clinically, patient is doing well with no new signs symptoms suggestive of disease progression or follow-up lab work-up shows improvement in her hemoglobin, she is tolerating systemic therapy with FOLFIRI well, will proceed with next cycle today and then she will return to clinic in 2 weeks with CBC CMP if reasonable, next cycle. Signed By: Filemon Hickey M.D. <<Signature on File>>
[2021-04-21 08:48] LABS: Basophils % 0.4 %; Eosinophils # 0.1 10^3/uL (0.0-0.8); Eosinophils % 1.4 %; Hematocrit 38.8 % (37.0-47.0); Hemoglobin 12.6 g/dL (11.5-15.3); Lymphocytes % 21.1 %; Mean Corpuscular HGB Conc 32.5 g/dL (30.0-36.0); Mean Corpuscular Hemoglobin 30.4 pg (28.0-34.0); Mean Corpuscular Volume 93.7 fl (81-99); Mean Platelet Volume 10.1 fL (7.4-10.4); Monocytes # 0.4 10^3/uL (0.2-0.9); Monocytes % 8.7 %; Neutrophils # 3.37 10^3/uL (1.8-7.7); Neutrophils % 68.2 %; Nucleated Red Blood Cells % 0 %; Platelet Count 182 10^3/cmm (130-400); Red Blood Count 4.14 10^6/uL (4.1-5.3); Red Cell Distribution Width 14.9 % (12.1-15.1); White Blood Count 4.9 10^3/uL (4.0-10.0)
[2021-04-21 09:12] LABS: Alanine Aminotransferase 14 U/L (0-33); Albumin Level 3.9 g/dL (3.5-5.2); Alkaline Phosphatase 126 IU/L (35-105); Anion Gap 17.4 (5-19); Aspartate Amino Transferase 18 U/L (0-32); Blood Urea Nitrogen 13 mg/dL (8-23); Calcium 8.6 mg/dL (8.5-10.5); Carbon Dioxide 22 mmol/L (22-29); Chloride 105 mmol/L (98-107); Globulin 2.6 g/dL (1.3-4.6); Glomerular Filtration Rate 85.1 mL/min (90-130); Glucose 103 mg/dL (65-115); Osmolality Calculated 290 mOsm/kg (285-295); Potassium 4.4 mmol/L (3.5-5.1); Sodium 140 mmol/L (136-145); Total Bilirubin 0.2 mg/dL (0.15-1.2); Total Protein 6.5 g/dL (6.6-8.7)
[2021-04-21 09:23] LABS: Carcinoembryonic Antigen 34.1 ng/mL (0.0-4.7)
[2021-04-22] MEDS: famotidine 20 mg/2 mL INJ IVP (08:55)
[2021-04-22] MEDS: dextrose 5% 250 ML 75 ML IV (08:58)
[2021-04-22] MEDS: ondansetron 2 mg/ML SDV 2 mL 8 MG IVP (08:58)
[2021-04-22] MEDS: acetaminophen 325 mg Tablet 650 MG PO (09:49)
== END 2021-04-24 09:20 | disposition home or self-care (01) ==
LOC: ONCMED 06:18
PROVIDERS: Internal Medicine Hematology & Oncology; PCP Family Medicine; Visit Provider Nurse Practitioner Family
DX: Z51.11 Encounter for antineoplastic chemotherapy (principal); C20 Malignant neoplasm of rectum; K52.9 Noninfective gastroenteritis and colitis, unspecified; Z86.718 Personal history of other venous thrombosis and embolism; Z79.52 Long term (current) use of systemic steroids
CPT/HCPCS: 36591; 80053; 82378; 85025; 96367; 96368; 96375; 96413; 96415; 96416; 99215; J0461; J0640; J1100; J2405; J3490; J7050; J9190; J9206

== ENCOUNTER 2021-04-24 09:22 | Emergency (ER) | payer OTHER, SELFPAY ==
[2021-04-24 09:25] VITALS: BP 137/81; PULSE 90; RESP 18; TEMP 36.7; O2SAT 98; BMI 23.6
[2021-04-24 09:39] VITALS: BP 137/81; PULSE 90; RESP 18; O2SAT 98
--- NOTE | 2021-04-24 09:43 | W.ED.SKABFB ---
HPI - Skin/Abscess/Foreign Bdy General: Chief complaint: Skin/Abscess/Foreign Body Stated complaint: needle stuck in port Time Seen by Provider: 04/24/21 09:33 History of Present Illness: HPI narrative: Patient presents with her chemotherapy needle stuck in her port. She is unable to remove it due to discomfort. Onset (ago): minute(s) Severity: mild Associated symptoms: Deny chills or fever(s) Review of Systems Const: Denies: fever(s) or chills Resp: Denies: dyspnea Skin/Breast: Reports: other (Port access needle is in her port unable to be removed) [facility] PFSH: Medical History (Updated 04/24/21 @ 09:43 by REYNA Ellsworth) 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 Maloney [place] Surgical History H/O colectomy Diverting colostomy placement History of appendectomy History of bilateral tubal ligation History of bladder surgery S/P ureteral stent placement Placed in August 2019 and removed in September 2019 secondary to severe intolerable discomfort. Sounds like metallic stents. Family History Other CAD (coronary artery disease) Denies family history of Diabetes Hyperlipidemia Cancer Hypertension Social History Smoking and tobacco status: former smoker Alcohol intake: current Alcohol intake frequency: holidays/special occasions only Household members: family Housing: House Physical Exam Const: COMMON NORMALS: no acute distress GENERAL APPEARANCE: cooperative Psych: COMMON NORMALS: mental status grossly normal Skin: OTHER: Patient's 1 1/2 inch needle is in her port has pain with movement. I was able to anesthetize the skin and remove the needle without difficulty. No bleeding after procedure no signs of infection. Course Vital Signs: Vital signs: Vital Signs Temperature 98.0 F 04/24/21 09:25 Pulse Rate 90 04/24/21 09:39 Respiratory Rate 18 04/24/21 09:39 Blood Pressure 137/81 04/24/21 09:39 Pulse Oximetry 98 04/24/21 09:39 Discharge Plan Discharge Patient Disposition: Home Clinical Impression: Foreign body (FB) in soft tissue Condition: Stable Prescriptions: No Action diphenoxylate-atropine 2.5-0.025 mg tablet 1 tab PO DAILY RF: 0 loperamide 2 mg Tablet 4 mg PO BID RF: 0 dexamethasone 4 mg tablet See Rx Instructions .ROUTE .COMPLEX RF: 0 oxycodone 10 mg tablet 10 mg PO Q4H PRN (Reason: Pain) RF: 0 multivitamin Tablet 1 tab PO DAILY@07 RF: 0 ondansetron 8 mg tablet,disintegrating 8 mg PO Q6H PRN (Reason: Nausea And Vomiting) RF: 0 ibuprofen 200 mg Tablet 800 mg PO TID PRN (Reason: Pain) RF: 0 Excedrin Migraine 250-250-65 mg Tablet 2 tab PO PRN RF: 0 Proferrin ES 1 tab PO DAILY@07 RF: 0 escitalopram oxalate 10 mg tablet 10 mg PO DAILY@07 RF: 0 promethazine 25 mg tablet 25 mg PO Q6H PRN (Reason: nausea and vomiting) Qty: 20 RF: 0 Ativan 2 mg tablet 2 mg PO QID PRN (Reason: nausea and vomiting) Qty: 14 RF: 0 prochlorperazine maleate [Compazine] 10 mg Tablet 10 mg PO Q6H PRN (Reason: Nausea) RF: 0 tramadol 100 mg tablet 100 mg PO Q8H PRN (Reason: pain) Qty: 30 RF: 0 oxycodone 10 mg tablet 10 mg PO Q6H PRN (Reason: pain) Qty: 20 RF: 0 Discharge Orders: Discharge ED (Routine); Ordered 04/24/21 Ordered By: Nas Alexis Referrals: Ciera Jeff MD [Primary Care Provider] - Discharge Diet: Usual diet Discharge Activity: Resume usual activity Activity Restrictions/Additional Instructions: Follow-up your specialist as needed. If he having problems your port site please return here or see your specialist. Have a dayna Nguyen. Coding Level of Care Code ED Police Lieutenant for Michael Lilly
== END 2021-04-24 09:46 | disposition home or self-care (01) ==
PROVIDERS: Emergency Provider Nurse Practitioner Family; PCP Family Medicine
DX: T82.898A Other specified complication of vascular prosthetic devices, implants and grafts, initial encounter (principal); M79.5 Residual foreign body in soft tissue; Z85.048 Personal history of other malignant neoplasm of rectum, rectosigmoid junction, and anus
CPT/HCPCS: 99281

== ENCOUNTER 2021-04-29 06:25 | Outpatient (RCR) | payer OTHER, SELFPAY ==
[2021-04-29 11:18] LABS: Basophils % 0.6 %; Eosinophils # 0.1 10^3/uL (0.0-0.8); Eosinophils % 3.9 %; Hematocrit 39.7 % (37.0-47.0); Hemoglobin 12.7 g/dL (11.5-15.3); Lymphocytes % 30.5 %; Mean Corpuscular Hemoglobin 30.1 pg (28.0-34.0); Mean Corpuscular Volume 94.1 fl (81-99); Mean Platelet Volume 10.1 fL (7.4-10.4); Monocytes # 0.3 10^3/uL (0.2-0.9); Monocytes % 8.1 %; Neutrophils # 1.87 10^3/uL (1.8-7.7); Nucleated Red Blood Cells % 0 %; Platelet Count 211 10^3/cmm (130-400); Red Blood Count 4.22 10^6/uL (4.1-5.3); Red Cell Distribution Width 14.6 % (12.1-15.1); White Blood Count 3.3 10^3/uL (4.0-10.0)
[2021-04-29 11:47] LABS: Carcinoembryonic Antigen 34.9 ng/mL (0.0-4.7)
[2021-04-29 12:01] LABS: Alanine Aminotransferase 12 U/L (0-33); Alkaline Phosphatase 118 IU/L (35-105); Anion Gap 14.2 (5-19); Aspartate Amino Transferase 15 U/L (0-32); Blood Urea Nitrogen 14 mg/dL (8-23); Calcium 8.2 mg/dL (8.5-10.5); Carbon Dioxide 24 mmol/L (22-29); Chloride 107 mmol/L (98-107); Globulin 2.4 g/dL (1.3-4.6); Glomerular Filtration Rate 85.1 mL/min (90-130); Glucose 114 mg/dL (65-115); Osmolality Calculated 293 mOsm/kg (285-295); Potassium 4.2 mmol/L (3.5-5.1); Sodium 141 mmol/L (136-145); Total Bilirubin 0.2 mg/dL (0.15-1.2); Total Protein 6.4 g/dL (6.6-8.7)
--- NOTE | 2021-04-29 14:04 | ONC FU_ITS ---
Dr. Hickey follow up note Patient: Kathryn Brice Unit #: [id number]: [id number] Dicatated By: Filemon Hickey M.D.Date of Visit:Apr 29, 2021 Onc Med Follow-up/Prog Note History of Present Illness: Ms. Brice is a 61-year-old female who was admitted to hospital with abdominal pain, nausea/vomiting and s 20 pound weight loss over the period of 3 months on May 05, 2019. She underwent CT scan of abdomen which showed rectal wall thickening and a mass. A CT scan of abdomen done on May 06, 2019 showed sigmoid pneumatosis consistent with perforation. Ms. Brice underwent flex sigmoidoscopy on May 08, 2019 subsequently diagnostic laparoscopy converted to laparotomy with Molina procedure by Dr. Burch. The pathology showed moderately differentiated invasive adenocarcinoma from the rectal mass biopsy. MMR staining retained by IHC, 11 lymph nodes were negative for metatatic disease. On May 14, 2019 follow-up CT scan of abdomen pelvis showed postoperative changes with fluid and edema adjacent from Rebecca pouch consistent with a leak with peritonitis and ileus. Unchanged rectal mass with a perirectal, perisacral, left common iliac and retroperitoneal lymphadenopathy. Fluid drained by interventional radiologist on May 14, 2019 with the drainage catheter removed on May 17, 2019. On May 27, 2019, pelvic MRIs showed 5.5 cm high rectal mass with multiple mesorectal and inferior mesenteric artery lymph nodes e.g. T4, N2. Postsurgical changes with consistent with dehiscence of Rebecca's pouch, enlarged left common iliac node. On June 07, 2019 CT scan of chest showed 2 1 to 2 cm nodules within lateral basal segment of left lower lobe and and 1.7 x 1.3 right hilar lymph node. Ms Brice was placed on the Epacodostat clinical trial with a short course radiation therapy 3500 rad from June 10-2019. A CT scan of chest abdomen pelvis done on June 13, 2019 showed resolution of pelvic collection with residual soft tissue thickening along Molina's pouch, stable rectal mass and stable LAD. She was started on cycle 1 day 1 CAPOX on July 01, 2019. Patient was admitted to [facility] on July 14-2019 for abdominal pain, nausea vomiting likely radiation enteritis versus chemo toxicity from oral Xeloda but less likely immunotherapy related (epacodostat). She was restarted on Epacodostat on July 18, 2019. CT scan of abdomen pelvis done on July 29, 2019 showed dehiscence of Molina's pouch with fistulization to the adjacent small bowel, and increasing small bowel and rectal wall thickening and edema. Patient was admitted to [facility] again on July 29, 2019 through August 07, 2019 for abdominal pain, flex sig done on July 30, 2019 showed partially obstructing ulcerated mass with retained fluid in the Rebecca pouch with the proximal aspect of Rebecca pouch is ulcerated, status post dilatation and transanal drainage. CT scan of abdomen pelvis done on August 20, 2019 showed resolution of pelvic fluid collection with a fistulous tract between Rebecca pouch and pelvic pelvic small bowel loop, improved enteritis, new moderate left hydro and mild right hydronephrosis. On August 30, 2019 underwent flex sig with placement of transanal drainage and bilateral ureteral stents. 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 CT/MRI of abdomen pelvis done on December 02, 2019 showed treatment response, reduction in rectal mass., Treatment with 5-FU alone was given on December 16, 2019 followed by break due to to hospitalization for small bowel obstruction and then scheduled for surgery. And SBO resolved on conservative management and patient was discharged home on TPN. On January 17, 2020 underwent colonoscopy with ascending colon snare polypectomy, exploratory laparotomy, extensive lysis of adhesions, completion proctectomy, takedown of end colostomy with creation of colonic J-pouch and end-to-end anastomosis. Cystoscopy and stent placement by urology team, patient was admitted to [facility] on January 25 2 January 30, 2020 with fever, pain, bloody ostomy, she underwent ileoscopy on January 28, 2020 it was normal and no bleeding was seen Patient was seen by colorectal surgery on February 11, 2020 and recommended to complete 6 months of chemotherapy and then reverse in 3 months following completion of chemotherapy. Patient completed 11 cycles of total chemotherapy on April 06, 2020. And during follow-up on June 12, 2020 she underwent excision of anal lesion, pathology consistent with metastatic adenocarcinoma. No rectovaginal fistula. On June 19, 2020 reexcision of perianal adenocarcinoma with additional margin and pathology positive for adenocarcinoma with clear margin. Patient underwent CT scan of chest abdomen pelvis on July 24, 2020 which showed pericecal nodule worrisome for metastatic disease and fluid collection in the presacral space she was admitted to [facility] from July 20- for possible presacral abscess seen on the scan which was drained and culture came back negative but pathology showed metastatic adenocarcinoma and patient was started on systemic chemotherapy with FOLFIRI, which she tolerated well and her second cycle was given on August 17, 2020, patient is considering switching her care to [place] because of inconvenience of traveling back and forth to [place]. She started with third cycle of FOLFIRI here in [place] on 09/10/2020. Ms Brice went to [facility] [place] [facility] on 09/17/2020 with abdominal pain, nausea vomiting, lab work-up including urine analysis showed no abnormality, amylase was within normal range. Patient treated symptomatically and improved. As per patient, she stayed dehydrated all the time so she drink lots of water and her nausea vomiting started when she was working her yard, she thinks that she may have overdone it. She also has history of migraine headaches. She completed cycle 4 on September 24, 2020. She was seen Helena Johnson NP at [facility] oncology on 10/05/2020. She had been reporting headache after chemotherapy and lip tingling for the past 3 weeks. She is getting FOLFIRI treatment. She has had no trouble with her ostomy output and was not having abdominal pain. 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 Improved presacral fluid collection with thin residual rim-enhancing collection. Stable omental thickening without discrete nodularity. No definite CT evidence of metastatic disease in the chest. The recommendation was to proceed with FOLFIRI and reimage her in 6 weeks to reassess for continued progression. Her CEA on 10/05/2020 was 5.5. It was recommended that she have a brain MRI to rule out metastasis given that she has headache after chemotherapy and also has neuropathy in her lips. We did arrange this for her. However I am suspicious that this may be related to her premed of palonosetron as it is a common side effect to have headache after treatment. She will return to [place] in 6 weeks for follow-up and repeat scans. Her last dose was of FOLFiRI on October 08, 2020. She has no new concerns today. She did have the MRI of the brain with and without contrast on 10/21/2020. There were no evidence of metastatic disease to the brain. 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 Her had headaches have been better overall with stopping the Aloxi and relying on ondansetron as part of her premed/prechemo regimen. Patient had a follow-up CT scan of chest abdomen pelvis done At [facility] on November 16, 2020 which showed no significant change in the centrally necrotic mass with nodular peripheral enhancement centered in the presacral space representing biopsy-proven metastatic adenocarcinoma. No significant change in the presacral fluid collection and omental thickening without discrete nodularities. No evidence of metastatic disease in the chest, Patient was evaluated in oncology clinic at [facility] on November 16, 2020 at that time based on follow-up CT scan of chest abdomen pelvis finding it was recommended to continue FOLFIRI for another 3 months and then repeat CT scan of chest abdomen pelvis unless patient develops new symptoms, On February 15, 2021, she underwent follow-up CT scan of chest abdomen pelvis which showed no progressive disease identified in chest abdomen or pelvis. Unchanged appearance of recurrence/metastatic rectal cancer with fistulization to the adjacent sigmoid colon and cecum with small presacral gas collection. New 2 mm left lower lobe pulmonary nodule. Improved right-sided hydronephrosis. New left-sided sacral insufficiency fracture. Ms Brice was evaluated by Dr. Cooney at [facility] and was recommended to continue with FOLFIRI for another 3 months and then repeat scans. Came for follow-up, denies any specific complaints, no fever chills, no nausea or vomiting, no diarrhea or constipation, no mouth sores, no abdominal pain, no worsening of mild numbness involving bilateral lower extremities. States had redness around her mouth one day post treatment that resolved within 2 days. It did not itch and it was not painful. Tolerating systemic therapy with FOLFIRI well otherwise. She is scheduled 05/07/2021 for exam under anesthesia of ano/rectal fissure and botox injection at [facility]. Came for follow-up, denies any specific complaints, no fever chills, no nausea or vomiting, no diarrhea constipation, no melena or hematochezia, no jaundice, no mouth sores, no abdominal pain, no neuropathy but off and on pain in anal area due to anal rectal fissure for which she is scheduled for Botox therapy on May 07, 2020 at [facility].Last week her lab work-up shows progressive CEA level, patient is here to discuss her repeat CEA levels Medications: Daily Vitamin 1 Tablet Oral daily, Dexamethasone 2 Tablet (of 4 mg) Oral PRN, Ibuprofen 1 Tablet (of 800 mg) Oral q 6 hours PRN, Lexapro 1 Tablet (of 10 mg) Oral daily, Ondansetron HCl 1 Tablet (of 8 mg) Oral PRN, Pantoprazole Sodium 1 Tablet (of 40 mg) Tablet, enteric coated Oral daily, traMADol HCl 1 Each (of 100 mg) Tablet Oral ac (tid) PRN Allergies: pecan nuts, Penicillins, and walnuts. Review of Systems: Review of Systems is not available for this patient. Vital Signs: Performed on Apr 29, 2021 12:37 Height - 69.00 in Weight - 162 lbs (HIGH) BSA - 1.89 sq.m BMI - 23.92 Temperature - 97.8 F (LOW) Pulse - 74 /min Respiration - 18 /min BP - 17/75 mm(hg) (LOW) O2 Sat - 98 % Pain - 2 Fatigue - 0 Performance Status: 0 - Fully active, able to carry on all predisease activities without restrictions. (ECOG) Physical Examination: ENMT - No mouth sores, no thrush, no jaundice, Respiratory - Lungs are clear to auscultation, Cardiovascular - Regular rate and rhythm of heart, Abdomen - Soft, bowel sounds present, Extremities - No visible edema. Lab/Imaging: Test performed on Feb 15, 2021 10:25 Glucose 91 mg/dL BUN 11 mg/dL Creatinine 0.9 mg/dL Cr Clearance (Est) 71.35 mL/min Sodium 139 mmol/L Potassium 3.9 mmol/L Chloride 104 mmol/L CO2 28 mmol/L Calcium 8.8 mg/dL Albumin 4.0 g/dL Bilirubin, Total 0.4 mg/dL Alkaline Phosphatase 106 International Units/L AST (SGOT) 16 International Units/L ALT (SGPT) 11 International Units/L WBC 4.3 10^9/L HGB 11.7 g/dL HCT 35.1 % MCV 92.0 fl Platelet Count 241 10^9/L Impression: 1. Recurrent rectal cancer per presacral biopsy done in June 2020 History of stage IIIc, T4 N2 M0 locally advanced rectal adenocarcinoma presenting with perforation diagnosed in early 2019 Status post clinical trial with Epacodostat/capox,, patient developed colitis later on she was switched to FOLFOX on September 09, 2019, oxaliplatin was discontinued after third cycle on October 07, 2019 subsequently continue with 5-FU alone till April 06, 2020, On June 12, 2020 underwent excision of anal lesion which was consistent with metastatic adenocarcinoma and on June 19, 2020 underwent reexcision of perianal adenocarcinoma with clear margin, patient was started on FOLFIRI July 19, 2020 at [facility]. She continues to followup with her physician there but is receiving her treatments locally. 2. History of DVT: Treated with Eliquis, now stopped Plan: . 11Discussed with patient regarding her labs white blood count 3.3 hemoglobin 12.7 hematocrit 39.7 platelets CMP within normal limits CEA 34.9 compared to 34.1 previously Clinically, patient is doing well with no signs symptoms just to disease progression but her follow-up lab work-up shows progressive CEA, patient is scheduled for follow-up CT scan of abdomen pelvis on May 24, 2020 at [facility], patient is being followed by Dr. Maloney, medical oncologist at [facility]. Patient is tolerating FOLFIRI well otherwise, she is due for her next treatment next week but patient is going for anorectal fissure surgery/Botox therapy on May 07, 2020, patient would like to schedule her next dose after the procedure so she will come back to clinic in 2 weeks with CBC CMP and CEA, in the meantime we will discuss with Dr. Maloney regarding whether to continue her treatment with FOLFIRI while CEA is going up or discontinue treatment now and review follow-up CT scan of abdomen pelvis which is scheduled for May 24, 2020 and then decide. Signed By: Filemon Hickey M.D. <<Signature on File>>
== END 2021-04-30 23:59 | disposition home or self-care (01) ==
LOC: ONCMED 06:25
PROVIDERS: PCP Family Medicine; Visit Provider Internal Medicine Hematology & Oncology
DX: C20 Malignant neoplasm of rectum (principal); K52.9 Noninfective gastroenteritis and colitis, unspecified; Z86.718 Personal history of other venous thrombosis and embolism; Z79.899 Other long term (current) drug therapy
CPT/HCPCS: 36591; 80053; 82378; 85025; 99214

== ENCOUNTER 2021-05-11 09:04 | Outpatient (RCR) | payer OTHER, SELFPAY ==
[2021-05-11 09:50] LABS: Basophils % 0.8 %; Eosinophils # 0.1 10^3/uL (0.0-0.8); Eosinophils % 2.4 %; Hematocrit 39.9 % (37.0-47.0); Hemoglobin 12.7 g/dL (11.5-15.3); Lymphocytes # 0.9 10^3/uL (0.8-4.8); Lymphocytes % 18.8 %; Mean Corpuscular HGB Conc 31.8 g/dL (30.0-36.0); Mean Corpuscular Volume 94.1 fl (81-99); Monocytes # 0.5 10^3/uL (0.2-0.9); Monocytes % 10.4 %; Neutrophils % 67.4 %; Nucleated Red Blood Cells % 0 %; Platelet Count 196 10^3/cmm (130-400); Red Blood Count 4.24 10^6/uL (4.1-5.3); White Blood Count 4.9 10^3/uL (4.0-10.0)
[2021-05-11 10:14] LABS: Carcinoembryonic Antigen 36.2 ng/mL (0.0-4.7)
[2021-05-11 10:25] LABS: Alanine Aminotransferase 11 U/L (0-33); Alkaline Phosphatase 131 IU/L (35-105); Anion Gap 15.6 (5-19); Aspartate Amino Transferase 18 U/L (0-32); Blood Urea Nitrogen 11 mg/dL (8-23); Calcium 8.8 mg/dL (8.5-10.5); Carbon Dioxide 25 mmol/L (22-29); Chloride 102 mmol/L (98-107); Globulin 2.2 g/dL (1.3-4.6); Glomerular Filtration Rate 101.6 mL/min (90-130); Glucose 98 mg/dL (65-115); Osmolality Calculated 285 mOsm/kg (285-295); Potassium 4.6 mmol/L (3.5-5.1); Sodium 138 mmol/L (136-145); Total Bilirubin 0.2 mg/dL (0.15-1.2); Total Protein 6.2 g/dL (6.6-8.7)
[2021-05-11] MEDS: acetaminophen 325 mg Tablet 650 MG PO (11:15)
[2021-05-11] MEDS: sodium chloride 0.9% 250 ML 75 ML IV (11:15)
[2021-05-11] MEDS: ondansetron 2 mg/ML SDV 2 mL 8 MG IV (11:15)
[2021-05-11] MEDS: famotidine 20 mg/2 mL INJ IVP (11:20)
[2021-05-11] MEDS: LORazepam 2 mg/mL INJ 1 mL 0.5 MG IVP (13:25)
== END 2021-05-31 23:59 | disposition home or self-care (01) ==
LOC: ONCMED 09:04
PROVIDERS: PCP Family Medicine; Visit Provider Nurse Practitioner Family
DX: Z51.11 Encounter for antineoplastic chemotherapy (principal); C20 Malignant neoplasm of rectum; C78.5 Secondary malignant neoplasm of large intestine and rectum; Z86.718 Personal history of other venous thrombosis and embolism
CPT/HCPCS: 80053; 82378; 85025; 96367; 96375; 96413; 96415; 96416; 99215; J0461; J0640; J1100; J2060; J2405; J3490; J7050; J9190; J9206

== ENCOUNTER 2021-06-11 09:02 | Outpatient (RCR) | payer OTHER, SELFPAY ==
[2021-06-11 10:19] LABS: Basophils # 0.1 10^3/uL (0.0-0.1); Eosinophils # 0.2 10^3/uL (0.0-0.8); Eosinophils % 4.7 %; Hematocrit 43.5 % (37.0-47.0); Hemoglobin 13.6 g/dL (11.5-15.3); Lymphocytes # 1.2 10^3/uL (0.8-4.8); Lymphocytes % 23.1 %; Mean Corpuscular HGB Conc 31.3 g/dL (30.0-36.0); Mean Corpuscular Hemoglobin 29.6 pg (28.0-34.0); Mean Corpuscular Volume 94.8 fl (81-99); Mean Platelet Volume 10.7 fL (7.4-10.4); Monocytes # 0.5 10^3/uL (0.2-0.9); Monocytes % 10.5 %; Neutrophils # 3.12 10^3/uL (1.8-7.7); Neutrophils % 60.3 %; Nucleated Red Blood Cells % 0 %; Platelet Count 213 10^3/cmm (130-400); Red Blood Count 4.59 10^6/uL (4.1-5.3); Red Cell Distribution Width 15.2 % (12.1-15.1); White Blood Count 5.2 10^3/uL (4.0-10.0)
[2021-06-11 10:42] LABS: Carcinoembryonic Antigen 42.4 ng/mL (0.0-4.7)
[2021-06-11 10:53] LABS: Alanine Aminotransferase 11 U/L (0-33); Albumin Level 4.7 g/dL (3.5-5.2); Alkaline Phosphatase 162 IU/L (35-105); Anion Gap 15.4 (5-19); Aspartate Amino Transferase 22 U/L (0-32); Blood Urea Nitrogen 10 mg/dL (8-23); Carbon Dioxide 24 mmol/L (22-29); Chloride 101 mmol/L (98-107); Globulin 2.2 g/dL (1.3-4.6); Glomerular Filtration Rate 72.9 mL/min (90-130); Glucose 91 mg/dL (65-115); Osmolality Calculated 281 mOsm/kg (285-295); Potassium 4.4 mmol/L (3.5-5.1); Sodium 136 mmol/L (136-145); Total Bilirubin 0.2 mg/dL (0.15-1.2); Total Protein 6.9 g/dL (6.6-8.7)
--- NOTE | 2021-06-11 12:46 | ONC FU_ITS ---
Dr. Hickey follow up note Patient: Kathryn Brice Unit #: [id number]: 1960 Dicatated By: Filemon Hickey M.D.Date of Visit:Jun 11, 2021 Onc Med Follow-up/Prog Note History of Present Illness: Ms. Brice is a 61-year-old female who was admitted to hospital with abdominal pain, nausea/vomiting and s 20 pound weight loss over the period of 3 months on May 05, 2019. She underwent CT scan of abdomen which showed rectal wall thickening and a mass. A CT scan of abdomen done on May 06, 2019 showed sigmoid pneumatosis consistent with perforation. Ms. Brice underwent flex sigmoidoscopy on May 08, 2019 subsequently diagnostic laparoscopy converted to laparotomy with Molina procedure by Dr. Burch. The pathology showed moderately differentiated invasive adenocarcinoma from the rectal mass biopsy. MMR staining retained by IHC, 11 lymph nodes were negative for metatatic disease. On May 14, 2019 follow-up CT scan of abdomen pelvis showed postoperative changes with fluid and edema adjacent from Rebecca pouch consistent with a leak with peritonitis and ileus. Unchanged rectal mass with a perirectal, perisacral, left common iliac and retroperitoneal lymphadenopathy. Fluid drained by interventional radiologist on May 14, 2019 with the drainage catheter removed on May 17, 2019. On May 27, 2019, pelvic MRIs showed 5.5 cm high rectal mass with multiple mesorectal and inferior mesenteric artery lymph nodes e.g. T4, N2. Postsurgical changes with consistent with dehiscence of Rebecca's pouch, enlarged left common iliac node. On June 07, 2019 CT scan of chest showed 2 1 to 2 cm nodules within lateral basal segment of left lower lobe and and 1.7 x 1.3 right hilar lymph node. Ms Brice was placed on the Epacodostat clinical trial with a short course radiation therapy 3500 rad from June 10-2019. A CT scan of chest abdomen pelvis done on June 13, 2019 showed resolution of pelvic collection with residual soft tissue thickening along Molina's pouch, stable rectal mass and stable LAD. She was started on cycle 1 day 1 CAPOX on July 01, 2019. Patient was admitted to [facility] on July 14-2019 for abdominal pain, nausea vomiting likely radiation enteritis versus chemo toxicity from oral Xeloda but less likely immunotherapy related (epacodostat). She was restarted on Epacodostat on July 18, 2019. CT scan of abdomen pelvis done on July 29, 2019 showed dehiscence of Molina's pouch with fistulization to the adjacent small bowel, and increasing small bowel and rectal wall thickening and edema. Patient was admitted to [facility] again on July 29, 2019 through August 07, 2019 for abdominal pain, flex sig done on July 30, 2019 showed partially obstructing ulcerated mass with retained fluid in the Rebecca pouch with the proximal aspect of Rebecca pouch is ulcerated, status post dilatation and transanal drainage. CT scan of abdomen pelvis done on August 20, 2019 showed resolution of pelvic fluid collection with a fistulous tract between Rebecca pouch and pelvic pelvic small bowel loop, improved enteritis, new moderate left hydro and mild right hydronephrosis. On August 30, 2019 underwent flex sig with placement of transanal drainage and bilateral ureteral stents. 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 CT/MRI of abdomen pelvis done on December 02, 2019 showed treatment response, reduction in rectal mass., Treatment with 5-FU alone was given on December 16, 2019 followed by break due to to hospitalization for small bowel obstruction and then scheduled for surgery. And SBO resolved on conservative management and patient was discharged home on TPN. On January 17, 2020 underwent colonoscopy with ascending colon snare polypectomy, exploratory laparotomy, extensive lysis of adhesions, completion proctectomy, takedown of end colostomy with creation of colonic J-pouch and end-to-end anastomosis. Cystoscopy and stent placement by urology team, patient was admitted to [facility] on January 25 2 January 30, 2020 with fever, pain, bloody ostomy, she underwent ileoscopy on January 28, 2020 it was normal and no bleeding was seen Patient was seen by colorectal surgery on February 11, 2020 and recommended to complete 6 months of chemotherapy and then reverse in 3 months following completion of chemotherapy. Patient completed 11 cycles of total chemotherapy on April 06, 2020. And during follow-up on June 12, 2020 she underwent excision of anal lesion, pathology consistent with metastatic adenocarcinoma. No rectovaginal fistula. On June 19, 2020 reexcision of perianal adenocarcinoma with additional margin and pathology positive for adenocarcinoma with clear margin. Patient underwent CT scan of chest abdomen pelvis on July 24, 2020 which showed pericecal nodule worrisome for metastatic disease and fluid collection in the presacral space she was admitted to [facility] from July 20- for possible presacral abscess seen on the scan which was drained and culture came back negative but pathology showed metastatic adenocarcinoma and patient was started on systemic chemotherapy with FOLFIRI, which she tolerated well and her second cycle was given on August 17, 2020, patient is considering switching her care to [place] because of inconvenience of traveling back and forth to [place]. She started with third cycle of FOLFIRI here in [place] on 09/10/2020. Ms Brice went to [facility] on 09/17/2020 with abdominal pain, nausea vomiting, lab work-up including urine analysis showed no abnormality, amylase was within normal range. Patient treated symptomatically and improved. As per patient, she stayed dehydrated all the time so she drink lots of water and her nausea vomiting started when she was working her yard, she thinks that she may have overdone it. She also has history of migraine headaches. She completed cycle 4 on September 24, 2020. She was seen Helena Johnson NP at [facility] oncology on 10/05/2020. She had been reporting headache after chemotherapy and lip tingling for the past 3 weeks. She is getting FOLFIRI treatment. She has had no trouble with her ostomy output and was not having abdominal pain. 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 Improved presacral fluid collection with thin residual rim-enhancing collection. Stable omental thickening without discrete nodularity. No definite CT evidence of metastatic disease in the chest. The recommendation was to proceed with FOLFIRI and reimage her in 6 weeks to reassess for continued progression. Her CEA on 10/05/2020 was 5.5. It was recommended that she have a brain MRI to rule out metastasis given that she has headache after chemotherapy and also has neuropathy in her lips. We did arrange this for her. . She did have the MRI of the brain with and without contrast on 10/21/2020. There were no evidence of metastatic disease to the brain. 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 Her had headaches have been better overall with stopping the Aloxi and relying on ondansetron as part of her premed/prechemo regimen. Patient had a follow-up CT scan of chest abdomen pelvis done At [facility] on November 16, 2020 which showed no significant change in the centrally necrotic mass with nodular peripheral enhancement centered in the presacral space representing biopsy-proven metastatic adenocarcinoma. No significant change in the presacral fluid collection and omental thickening without discrete nodularities. No evidence of metastatic disease in the chest, Patient was evaluated in oncology clinic at [facility] on November 16, 2020 at that time based on follow-up CT scan of chest abdomen pelvis finding it was recommended to continue FOLFIRI for another 3 months and then repeat CT scan of chest abdomen pelvis unless patient develops new symptoms, On February 15, 2021, she underwent follow-up CT scan of chest abdomen pelvis which showed no progressive disease identified in chest abdomen or pelvis. Unchanged appearance of recurrence/metastatic rectal cancer with fistulization to the adjacent sigmoid colon and cecum with small presacral gas collection. New 2 mm left lower lobe pulmonary nodule. Improved right-sided hydronephrosis. New left-sided sacral insufficiency fracture. Ms Brice was evaluated by Dr. Cooney at [facility] and was recommended to continue with FOLFIRI for another 3 months and then repeat scans.Which was done on May 24, 2021 which showed interval progression of disease as evident by enlarging nodule along the anastomosis in addition to enlarging or new peritoneal deposits. Worsening of right hydronephrosis mostly involving lower pole meatus. New subcentimeter liver hypodensity, too small to characterize. New groundglass opacities in the right lung could be infectious/inflammatory. Patient was evaluated by Dr. Cooney, medical oncologist at [facility], clinical trial with [place] [id number] enrollment was discussed but due to inconvenience of driving back and forth every week, patient decided not to consider clinical trial rather agreed with other options offered including regorafenib/nivolumab regimen. As per patient all the side effect, possible benefits associated with the treatment were discussed in detail by Dr. Cooney and her nurse, Came for follow-up, denies any specific complaint except persistent pelvic pain not being controlled with hydrocodone, as per patient she was told that her pain could be due to right hydronephrosis, in the past she had ureteral stent placed in but could not tolerate due to worsening of pain and then asked her urologist to remove it, as per patient now she is referred to another urologist at [facility] and scheduled to see him on next Monday. As far as anorectal fissure is concerned, patient recently underwent Botox injection by Dr. Burch. Patient is here to start new regimen with regorafenib/nivolumab Medications: Daily Vitamin 1 Tablet Oral daily, Dexamethasone 2 Tablet (of 4 mg) Oral PRN, Ibuprofen 1 Tablet (of 800 mg) Oral q 6 hours PRN, Lexapro 1 Tablet (of 10 mg) Oral daily, Ondansetron HCl 1 Tablet (of 8 mg) Oral PRN, Pantoprazole Sodium 1 Tablet (of 40 mg) Tablet, enteric coated Oral daily, traMADol HCl 1 Each (of 100 mg) Tablet Oral ac (tid) PRN Allergies: pecan nuts, Penicillins, and walnuts. Review of Systems: Review of Systems is not available for this patient. Vital Signs: Performed on Jun 11, 2021 11:01 Height - 69.00 in Weight - 164 lbs (LOW) BSA - 1.90 sq.m BMI - 24.22 Temperature - 97.7 F (LOW) Pulse - 74 /min Respiration - 17 /min BP - 133/79 mm(hg) O2 Sat - 100 % Pain - 4 Fatigue - 5 Performance Status: 0 - Fully active, able to carry on all predisease activities without restrictions. (ECOG) Physical Examination: ENMT - No mouth sores, no thrush, no jaundice, Respiratory - Lungs are clear to auscultation, Cardiovascular - Regular rate and rhythm of heart, Abdomen - Soft, bowel sounds present, Extremities - No visible edema. Lab/Imaging: Test performed on Feb 15, 2021 10:25 Glucose 91 mg/dL BUN 11 mg/dL Creatinine 0.9 mg/dL Cr Clearance (Est) 71.35 mL/min Sodium 139 mmol/L Potassium 3.9 mmol/L Chloride 104 mmol/L CO2 28 mmol/L Calcium 8.8 mg/dL Albumin 4.0 g/dL Bilirubin, Total 0.4 mg/dL Alkaline Phosphatase 106 International Units/L AST (SGOT) 16 International Units/L ALT (SGPT) 11 International Units/L WBC 4.3 10^9/L HGB 11.7 g/dL HCT 35.1 % MCV 92.0 fl Platelet Count 241 10^9/L Impression: 1. Recurrent rectal cancer per presacral biopsy done in June 2020 History of stage IIIc, T4 N2 M0 locally advanced rectal adenocarcinoma presenting with perforation diagnosed in early 2019 Status post clinical trial with Epacodostat/capox,, patient developed colitis later on she was switched to FOLFOX on September 09, 2019, oxaliplatin was discontinued after third cycle on October 07, 2019 subsequently continue with 5-FU alone till April 06, 2020, On June 12, 2020 underwent excision of anal lesion which was consistent with metastatic adenocarcinoma and on June 19, 2020 underwent reexcision of perianal adenocarcinoma with clear margin, patient was started on FOLFIRI July 19, 2020 at [facility]. She continues to followup with her physician there but is receiving her treatments locally. Status post FOLFIRI started on August 03, 2020 till May 11, 2021 1 follow-ups CT scan of chest abdomen pelvis done on May 24, 2021 at [facility] shows interval progression of disease as evidenced by enlarging nodule along the anastomosis in addition to enlarging and new peritoneal deposit. Worsening right hydronephrosis mostly involving lower pole, new subcentimeter liver hypodensity, too small to characterize. New groundglass opacities in the right lung could be infectious/inflammatory 2. History of DVT: Treated with Eliquis, now stopped Anal/rectal fissure, now being treated with Botox injection per Dr. Burch at [facility], last Botox injection was done on 09/08/2021. 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 Pelvic pain, on oxycodone Peripheral neuropathy Plan: Discussed with patient regarding her labs white blood counts 5.2 hemoglobin 13.6 hematocrit 43.5 platelets 213,000 CMP within normal limits, CEA 42.4 compared to 34.9 on April 29, 2021 Clinically, patient doing reasonably well, with persistent pelvic pain which is being controlled with oxycodone. Patient recently underwent CT scan of chest abdomen pelvis at [facility] which showed disease progression, while on FOLFIRI which was discontinued after last dose given on May 11, 2021, patient was offered clinical trial at [facility] but patient declined due to inconvenience of traveling but agreed for palliative therapy with regorafenib/nivolumab. All the side effect possible benefits associated with therapy were discussed by Dr. Cooney and her nurse at [facility] and again discussed today. We will consider michelle rafenib 80 mg p.o. daily day 1 through 21 and repeat every 28 days along with nivolumab 3 mg/kg every 2 weeks. And consider follow-up CT PET scan after 3 cycles. We will obtain approval from her insurance prior to treatment and then patient return to clinic 1 week after treatment is initiated with CBC and CMP. Signed By: Filemon Hickey M.D. <<Signature on File>>
== END 2021-06-28 23:59 | disposition home or self-care (01) ==
LOC: ONCMED 09:02
PROVIDERS: PCP Family Medicine; Visit Provider Internal Medicine Hematology & Oncology
DX: C20 Malignant neoplasm of rectum (principal); C78.5 Secondary malignant neoplasm of large intestine and rectum; K52.9 Noninfective gastroenteritis and colitis, unspecified; R10.2 Pelvic and perineal pain; G62.9 Polyneuropathy, unspecified; Z79.891 Long term (current) use of opiate analgesic; Z86.718 Personal history of other venous thrombosis and embolism; Z79.899 Other long term (current) drug therapy
CPT/HCPCS: 36591; 80053; 82378; 85025; 99214

== ENCOUNTER 2021-07-20 11:22 | Outpatient (RCR) | payer OTHER, SELFPAY ==
[2021-07-20 12:05] LABS: Basophils % 0.3 %; Eosinophils # 0.2 10^3/uL (0.0-0.8); Hematocrit 41.3 % (37.0-47.0); Hemoglobin 13.1 g/dL (11.5-15.3); Mean Corpuscular HGB Conc 31.7 g/dL (30.0-36.0); Mean Corpuscular Hemoglobin 29.5 pg (28.0-34.0); Mean Platelet Volume 11.3 fL (7.4-10.4); Monocytes # 0.5 10^3/uL (0.2-0.9); Monocytes % 7.6 %; Neutrophils # 4.26 10^3/uL (1.8-7.7); Neutrophils % 71.9 %; Nucleated Red Blood Cells % 0 %; Platelet Count 162 10^3/cmm (130-400); Red Blood Count 4.44 10^6/uL (4.1-5.3); Red Cell Distribution Width 14.6 % (12.1-15.1); White Blood Count 5.9 10^3/uL (4.0-10.0)
[2021-07-20 12:29] LABS: Slide Review Slide Review Perform
[2021-07-20 12:31] LABS: Carcinoembryonic Antigen 37.2 ng/mL (0.0-4.7); Thyroid Stimulating Hormone 0.73 uIU/mL (0.27-4.20)
[2021-07-20 12:42] LABS: Alanine Aminotransferase 11 U/L (0-33); Albumin Level 4.1 g/dL (3.5-5.2); Alkaline Phosphatase 141 IU/L (35-105); Anion Gap 15.1 (5-19); Aspartate Amino Transferase 19 U/L (0-32); Blood Urea Nitrogen 12 mg/dL (8-23); Carbon Dioxide 24 mmol/L (22-29); Chloride 102 mmol/L (98-107); Globulin 2.3 g/dL (1.3-4.6); Glomerular Filtration Rate 85.1 mL/min (90-130); Glucose 128 mg/dL (65-115); Osmolality Calculated 285 mOsm/kg (285-295); Potassium 4.1 mmol/L (3.5-5.1); Sodium 137 mmol/L (136-145); Total Bilirubin 0.2 mg/dL (0.15-1.2); Total Protein 6.4 g/dL (6.6-8.7)
--- NOTE | 2021-07-27 08:20 | ONC FU_ITS ---
Tatyana Silverman Progress Note Patient: Kathryn Brice Unit #: [id number]: 1960 Dicatated By: Tatyana Silverman N.P.Date of Visit:Jul 20, 2021 Onc MED Follow-up/Prog Note Chief Complaint: Recurrent rectal adenocarcinoma History of Present Illness: Ms. Brice is a 61-year-old female who was admitted to hospital with abdominal pain, nausea/vomiting and s 20 pound weight loss over the period of 3 months on May 05, 2019. She underwent CT scan of abdomen which showed rectal wall thickening and a mass. A CT scan of abdomen done on May 06, 2019 showed sigmoid pneumatosis consistent with perforation. Ms. Brice underwent flex sigmoidoscopy on May 08, 2019 subsequently diagnostic laparoscopy converted to laparotomy with Molina procedure by Dr. Burch. The pathology showed moderately differentiated invasive adenocarcinoma from the rectal mass biopsy. MMR staining retained by IHC, 11 lymph nodes were negative for metatatic disease. On May 14, 2019 follow-up CT scan of abdomen pelvis showed postoperative changes with fluid and edema adjacent from Rebecca pouch consistent with a leak with peritonitis and ileus. Unchanged rectal mass with a perirectal, perisacral, left common iliac and retroperitoneal lymphadenopathy. Fluid drained by interventional radiologist on May 14, 2019 with the drainage catheter removed on May 17, 2019. On May 27, 2019, pelvic MRIs showed 5.5 cm high rectal mass with multiple mesorectal and inferior mesenteric artery lymph nodes e.g. T4, N2. Postsurgical changes with consistent with dehiscence of Rebecca's pouch, enlarged left common iliac node. On June 07, 2019 CT scan of chest showed 2 1 to 2 cm nodules within lateral basal segment of left lower lobe and and 1.7 x 1.3 right hilar lymph node. Ms Brice was placed on the Epacodostat clinical trial with a short course radiation therapy 3500 rad from June 10-2019. A CT scan of chest abdomen pelvis done on June 13, 2019 showed resolution of pelvic collection with residual soft tissue thickening along Molina's pouch, stable rectal mass and stable LAD. She was started on cycle 1 day 1 CAPOX on July 01, 2019. Patient was admitted to [facility] on July 14-2019 for abdominal pain, nausea vomiting likely radiation enteritis versus chemo toxicity from oral Xeloda but less likely immunotherapy related (epacodostat). She was restarted on Epacodostat on July 18, 2019. CT scan of abdomen pelvis done on July 29, 2019 showed dehiscence of Molina's pouch with fistulization to the adjacent small bowel, and increasing small bowel and rectal wall thickening and edema. Patient was admitted to [facility] again on July 29, 2019 through August 07, 2019 for abdominal pain, flex sig done on July 30, 2019 showed partially obstructing ulcerated mass with retained fluid in the Rebecca pouch with the proximal aspect of Rebecca pouch is ulcerated, status post dilatation and transanal drainage. CT scan of abdomen pelvis done on August 20, 2019 showed resolution of pelvic fluid collection with a fistulous tract between Rebecca pouch and pelvic pelvic small bowel loop, improved enteritis, new moderate left hydro and mild right hydronephrosis. On August 30, 2019 underwent flex sig with placement of transanal drainage and bilateral ureteral stents. 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 CT/MRI of abdomen pelvis done on December 02, 2019 showed treatment response, reduction in rectal mass., Treatment with 5-FU alone was given on December 16, 2019 followed by break due to to hospitalization for small bowel obstruction and then scheduled for surgery. And SBO resolved on conservative management and patient was discharged home on TPN. On January 17, 2020 underwent colonoscopy with ascending colon snare polypectomy, exploratory laparotomy, extensive lysis of adhesions, completion proctectomy, takedown of end colostomy with creation of colonic J-pouch and end-to-end anastomosis. Cystoscopy and stent placement by urology team, patient was admitted to [facility] on January 25 2 January 30, 2020 with fever, pain, bloody ostomy, she underwent ileoscopy on January 28, 2020 it was normal and no bleeding was seen Patient was seen by colorectal surgery on February 11, 2020 and recommended to complete 6 months of chemotherapy and then reverse in 3 months following completion of chemotherapy. Patient completed 11 cycles of total chemotherapy on April 06, 2020. And during follow-up on June 12, 2020 she underwent excision of anal lesion, pathology consistent with metastatic adenocarcinoma. No rectovaginal fistula. On June 19, 2020 reexcision of perianal adenocarcinoma with additional margin and pathology positive for adenocarcinoma with clear margin. Patient underwent CT scan of chest abdomen pelvis on July 24, 2020 which showed pericecal nodule worrisome for metastatic disease and fluid collection in the presacral space she was admitted to [facility] from July 20- for possible presacral abscess seen on the scan which was drained and culture came back negative but pathology showed metastatic adenocarcinoma and patient was started on systemic chemotherapy with FOLFIRI, which she tolerated well and her second cycle was given on August 17, 2020, patient is considering switching her care to [place] because of inconvenience of traveling back and forth to [place]. She started with third cycle of FOLFIRI here in [place] on 09/10/2020. Ms Brice went to [facility] on 09/17/2020 with abdominal pain, nausea vomiting, lab work-up including urine analysis showed no abnormality, amylase was within normal range. Patient treated symptomatically and improved. As per patient, she stayed dehydrated all the time so she drink lots of water and her nausea vomiting started when she was working her yard, she thinks that she may have overdone it. She also has history of migraine headaches. She completed cycle 4 on September 24, 2020. She was seen Helena Johnson NP at [facility] oncology on 10/05/2020. She had been reporting headache after chemotherapy and lip tingling for the past 3 weeks. She is getting FOLFIRI treatment. She has had no trouble with her ostomy output and was not having abdominal pain. 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 Improved presacral fluid collection with thin residual rim-enhancing collection. Stable omental thickening without discrete nodularity. No definite CT evidence of metastatic disease in the chest. The recommendation was to proceed with FOLFIRI and reimage her in 6 weeks to reassess for continued progression. Her CEA on 10/05/2020 was 5.5. It was recommended that she have a brain MRI to rule out metastasis given that she has headache after chemotherapy and also has neuropathy in her lips. We did arrange this for her. . She did have the MRI of the brain with and without contrast on 10/21/2020. There were no evidence of metastatic disease to the brain. 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 Her had headaches have been better overall with stopping the Aloxi and relying on ondansetron as part of her premed/prechemo regimen. Patient had a follow-up CT scan of chest abdomen pelvis done At [facility] on November 16, 2020 which showed no significant change in the centrally necrotic mass with nodular peripheral enhancement centered in the presacral space representing biopsy-proven metastatic adenocarcinoma. No significant change in the presacral fluid collection and omental thickening without discrete nodularities. No evidence of metastatic disease in the chest, Patient was evaluated in oncology clinic at [facility] on November 16, 2020 at that time based on follow-up CT scan of chest abdomen pelvis finding it was recommended to continue FOLFIRI for another 3 months and then repeat CT scan of chest abdomen pelvis unless patient develops new symptoms, On February 15, 2021, she underwent follow-up CT scan of chest abdomen pelvis which showed no progressive disease identified in chest abdomen or pelvis. Unchanged appearance of recurrence/metastatic rectal cancer with fistulization to the adjacent sigmoid colon and cecum with small presacral gas collection. New 2 mm left lower lobe pulmonary nodule. Improved right-sided hydronephrosis. New left-sided sacral insufficiency fracture. Ms Brice was evaluated by Dr. Cooney at [facility] and was recommended to continue with FOLFIRI for another 3 months and then repeat scans.Which was done on May 24, 2021 which showed interval progression of disease as evident by enlarging nodule along the anastomosis in addition to enlarging or new peritoneal deposits. Worsening of right hydronephrosis mostly involving lower pole meatus. New subcentimeter liver hypodensity, too small to characterize. New groundglass opacities in the right lung could be infectious/inflammatory. Patient was evaluated by Dr. Cooney, medical oncologist at [facility], clinical trial with [place] [id number] enrollment was discussed but due to inconvenience of driving back and forth every week, patient decided not to consider clinical trial rather agreed with other options offered including regorafenib/nivolumab regimen. As per patient all the side effect, possible benefits associated with the treatment were discussed in detail by Dr. Cooney and her nurse, Has persistent pelvic pain not being controlled with hydrocodone, as per patient she was told that her pain could be due to right hydronephrosis, in the past she had ureteral stent placed in but could not tolerate due to worsening of pain and then asked her urologist to remove it, as per patient now she is referred to another urologist at [facility] and scheduled to see him on next Monday. As far as anorectal fissure is concerned, patient recently underwent Botox injection by Dr. Burch. Patient is here to start new regimen with regorafenib/nivolumab. She states she continues to have fatigue but other than that she is doing well. Her appetite has been good. No fever, chills, night sweats. No sinus drainage or sore throat. No shortness of breath, cough, chest pain. She has a colostomy bag which is functioning appropriately. No urinary symptoms. She denies joint pain. She continues to have some paresthesia in her fingertips and bilateral feet. Review Of Symptoms: See above. Past Medical History: Gout Hydronephrosis Mitral valve prolapse Perforated diverticulum Past Surgical History: Appendectomy Bladder surgery Lower anterior resection Tubal ligation Ureteral stent placement Covid vaccine #3 in 2020 Covid vaccine #2 in 2020 Covid vaccine #1 in 2020 Allergies: pecan nuts, Penicillins, and walnuts. Medications: Daily Vitamin 1 Tablet Oral daily Ibuprofen 1 Tablet (of 800 mg) Oral q 6 hours PRN Lexapro 1 Tablet (of 10 mg) Oral daily Lomotil 1 Tablet (of 2.5-0.025 mg) Oral daily traMADol HCl 1 Each (of 100 mg) Tablet Oral ac (tid) PRN Family History: Ms. Brice's mother at age 83: congestive heart failure, and cirrhosis. Ms. Brice's father at age 80: chronic obstructive pulmonary disease. Ms. Brice has 1 brother who is : overdosage. Social History: Ms. Brice is . Ms. Brice no longer smokes. Physical Examination: Performed on Jul 20, 2021 12:54: Height - 69.00 in, Weight - 169.8 lbs (HIGH), BSA - 1.93 sq.m, BMI - 25.08, Temperature - 97.1 F (LOW), Pulse - 76 /min, Respiration - 16 /min, BP - 125/87 mm(hg), O2 Sat - 99 %, Pain - 0, and Fatigue - 5. Performance Status: 0 - Fully active, able to carry on all predisease activities without restrictions. (ECOG) Constitutional Alert, cooperative, oriented. Mood and affect appropriate. Appears close to chronological age. Well nourished. Well developed. Head Normocephalic; no scars. Respiratory Lungs are clear to auscultation without rhonchi or wheezing. Cardiovascular Regular rate and rhythm of heart without murmurs, gallops or rubs. Abdomen Non-tender, non-distended, no masses, ascites or hepatosplenomegaly. Good bowel sounds. No guarding or rebound tenderness. Extremities No edema Musculoskeletal No tenderness or swelling, normal range of motion without obvious weakness. Psychiatric Alert and oriented times three. Coherent speech. Verbalizes understanding of our discussions today. Laboratory: Test performed on Jul 20, 2021 11:52 Sodium 137 mmol/L TSH 0.73 uIU/mL Potassium 4.1 mmol/L Chloride 102 mmol/L CO2 24 mmol/L Anion Gap 15.1 BUN 12 mg/dL Creatinine 0.7 mg/dL Cr Clearance (Est) 102.62 mL/min eGFR 85.1 mL/min Glucose 128 mg/dL Osmolality - Calculated 285 mOsm/kg Calcium 9.0 mg/dL Protein, Total 6.4 g/dL Albumin 4.1 g/dL Globulin 2.3 g/dL Bilirubin, Total 0.2 mg/dL ALT (SGPT) 11 U/L AST (SGOT) 19 U/L Alkaline Phosphatase 141 IU/L WBC 5.9 10 3/uL RBC 4.44 10 6/uL HGB 13.1 g/dL HCT 41.3 % MCV 93.0 fl MCH 29.5 pg MCHC 31.7 g/dL RDW 14.6 % Platelet Count 162 10 3/cmm MPV 11.3 fL Neutrophils 4.26 10 3/uL Lymphocytes 1.0 10 3/uL Monocytes 0.5 10 3/uL Eosinophils 0.2 10 3/uL Basophils 0.0 10 3/uL Neutrophil % 71.9 % Lymphocyte % 17.0 % Monocyte % 7.6 % Eosinophil % 3.0 % Basophils % 0.3 % NRBC % 0 % CBC Slide Review Slide Review Perform SLIDE REVIEW AGREES WITH AUTOMATED RESULTS ST CEA 37.2 ng/mL Impression: 1. Recurrent rectal cancer per presacral biopsy done in June 2020 History of stage IIIc, T4 N2 M0 locally advanced rectal adenocarcinoma presenting with perforation diagnosed in early 2019 Status post clinical trial with Epacodostat/capox,, patient developed colitis later on she was switched to FOLFOX on September 09, 2019, oxaliplatin was discontinued after third cycle on October 07, 2019 subsequently continue with 5-FU alone till April 06, 2020, On June 12, 2020 underwent excision of anal lesion which was consistent with metastatic adenocarcinoma and on June 19, 2020 underwent reexcision of perianal adenocarcinoma with clear margin, patient was started on FOLFIRI July 19, 2020 at [facility]. She continues to followup with her physician there but is receiving her treatments locally. Status post FOLFIRI started on August 03, 2020 till May 11, 2021 1 follow-ups CT scan of chest abdomen pelvis done on May 24, 2021 at [facility] shows interval progression of disease as evidenced by enlarging nodule along the anastomosis in addition to enlarging and new peritoneal deposit. Worsening right hydronephrosis mostly involving lower pole, new subcentimeter liver hypodensity, too small to characterize. New groundglass opacities in the right lung could be infectious/inflammatory 2. History of DVT: Treated with Eliquis, now stopped Anal/rectal fissure, now being treated with Botox injection per Dr. Burch at [place], last Botox injection was done on 09/08/2021. 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 Pelvic pain, on oxycodone Peripheral neuropathy Plan: Labs were discussed with patient. WBC 5.9, hemoglobin 13.1, hematocrit 41.3 and platelet count 162,000. Her CEA today is 37.2 which is decreased from her prior CEA at 42.4. Patient recently underwent CT scan of chest abdomen pelvis at [facility] which showed disease progression, while on FOLFIRI which was discontinued after last dose given on May 11, 2021, patient was offered clinical trial at [facility] but patient declined due to inconvenience of traveling but agreed for palliative therapy with regorafenib/nivolumab. Patient presented today for education on regorafenib and nivolumab. Handouts were provided and side effects were discussed in detail. She denies any questions at this time. She will receive regorafenib 80 mg p.o. daily day 1 through 21 and repeat every 28 days along with nivolumab 3 mg/kg every 2 weeks. And consider follow-up CT PET scan after 3 cycles. Return to clinic in 1 week with CBC and CMP. Signed By: Tatyana Silverman N.P. <<Signature on File>>
== END 2021-07-29 23:59 | disposition home or self-care (01) ==
LOC: ONCMED 11:22
PROVIDERS: Internal Medicine Hematology & Oncology; PCP Family Medicine; Visit Provider Nurse Practitioner Family
DX: Z51.12 Encounter for antineoplastic immunotherapy (principal); C20 Malignant neoplasm of rectum; C78.5 Secondary malignant neoplasm of large intestine and rectum; C78.6 Secondary malignant neoplasm of retroperitoneum and peritoneum; C78.7 Secondary malignant neoplasm of liver and intrahepatic bile duct; K52.1 Toxic gastroenteritis and colitis; T45.1X5A Adverse effect of antineoplastic and immunosuppressive drugs, initial encounter; Z86.718 Personal history of other venous thrombosis and embolism; G62.9 Polyneuropathy, unspecified; R10.2 Pelvic and perineal pain; Z79.891 Long term (current) use of opiate analgesic; Z79.899 Other long term (current) drug therapy
CPT/HCPCS: 80053; 82378; 84443; 85025; 96413; 99215; J7050; J9299

== ENCOUNTER 2021-08-17 06:41 | Outpatient (RCR) | payer MEDICAID, SELFPAY ==
[2021-08-03 09:35] LABS: Basophils # 0.1 10^3/uL (0.0-0.1); Basophils % 0.7 %; Eosinophils # 0.1 10^3/uL (0.0-0.8); Eosinophils % 1.8 %; Hematocrit 46.2 % (37.0-47.0); Hemoglobin 14.9 g/dL (11.5-15.3); Lymphocytes # 1.2 10^3/uL (0.8-4.8); Lymphocytes % 16.7 %; Mean Corpuscular HGB Conc 32.3 g/dL (30.0-36.0); Mean Corpuscular Hemoglobin 28.8 pg (28.0-34.0); Mean Corpuscular Volume 89.4 fl (81-99); Mean Platelet Volume 10.2 fL (7.4-10.4); Monocytes # 0.7 10^3/uL (0.2-0.9); Monocytes % 9.8 %; Neutrophils # 5.13 10^3/uL (1.8-7.7); Neutrophils % 70.7 %; Nucleated Red Blood Cells % 0 %; Platelet Count 265 10^3/cmm (130-400); Red Blood Count 5.17 10^6/uL (4.1-5.3); Red Cell Distribution Width 13.2 % (12.1-15.1); White Blood Count 7.3 10^3/uL (4.0-10.0)
[2021-08-03 09:54] LABS: Alanine Aminotransferase 13 U/L (0-33); Albumin Level 4.3 g/dL (3.5-5.2); Alkaline Phosphatase 166 IU/L (35-105); Anion Gap 17.6 (5-19); Aspartate Amino Transferase 21 U/L (0-32); Blood Urea Nitrogen 14 mg/dL (8-23); Calcium 9.8 mg/dL (8.5-10.5); Carbon Dioxide 22 mmol/L (22-29); Chloride 101 mmol/L (98-107); Globulin 3.7 g/dL (1.3-4.6); Glomerular Filtration Rate 63.7 mL/min (90-130); Glucose 98 mg/dL (65-115); Osmolality Calculated 282 mOsm/kg (285-295); Potassium 4.6 mmol/L (3.5-5.1); Sodium 136 mmol/L (136-145); Total Bilirubin 0.5 mg/dL (0.15-1.2)
[2021-08-03] MEDS: sodium chloride 0.9% 250 ML 75 ML IV (11:58)
--- NOTE | 2021-08-06 09:19 | ONC FU_ITS ---
Dr. Hickey follow up note Patient: Kathryn Brice Unit #: [id number]: [id number] Dicatated By: Filemon Hickey M.D.Date of Visit:Aug 03, 2021 Onc Med Follow-up/Prog Note History of Present Illness: Ms. Brice is a 61-year-old female who was admitted to hospital with abdominal pain, nausea/vomiting and s 20 pound weight loss over the period of 3 months on May 05, 2019. She underwent CT scan of abdomen which showed rectal wall thickening and a mass. A CT scan of abdomen done on May 06, 2019 showed sigmoid pneumatosis consistent with perforation. Ms. Brice underwent flex sigmoidoscopy on May 08, 2019 subsequently diagnostic laparoscopy converted to laparotomy with Molina procedure by Dr. Burch. The pathology showed moderately differentiated invasive adenocarcinoma from the rectal mass biopsy. MMR staining retained by IHC, 11 lymph nodes were negative for metatatic disease. On May 14, 2019 follow-up CT scan of abdomen pelvis showed postoperative changes with fluid and edema adjacent from Rebecca pouch consistent with a leak with peritonitis and ileus. Unchanged rectal mass with a perirectal, perisacral, left common iliac and retroperitoneal lymphadenopathy. Fluid drained by interventional radiologist on May 14, 2019 with the drainage catheter removed on May 17, 2019. On May 27, 2019, pelvic MRIs showed 5.5 cm high rectal mass with multiple mesorectal and inferior mesenteric artery lymph nodes e.g. T4, N2. Postsurgical changes with consistent with dehiscence of Rebecca's pouch, enlarged left common iliac node. On June 07, 2019 CT scan of chest showed 2 1 to 2 cm nodules within lateral basal segment of left lower lobe and and 1.7 x 1.3 right hilar lymph node. Ms Brice was placed on the Epacodostat clinical trial with a short course radiation therapy 3500 rad from June 10-2019. A CT scan of chest abdomen pelvis done on June 13, 2019 showed resolution of pelvic collection with residual soft tissue thickening along Molina's pouch, stable rectal mass and stable LAD. She was started on cycle 1 day 1 CAPOX on July 01, 2019. Patient was admitted to [facility] on July 14-2019 for abdominal pain, nausea vomiting likely radiation enteritis versus chemo toxicity from oral Xeloda but less likely immunotherapy related (epacodostat). She was restarted on Epacodostat on July 18, 2019. CT scan of abdomen pelvis done on July 29, 2019 showed dehiscence of Molina's pouch with fistulization to the adjacent small bowel, and increasing small bowel and rectal wall thickening and edema. Patient was admitted to [place] again on July 29, 2019 through August 07, 2019 for abdominal pain, flex sig done on July 30, 2019 showed partially obstructing ulcerated mass with retained fluid in the Rebecca pouch with the proximal aspect of Rebecca pouch is ulcerated, status post dilatation and transanal drainage. CT scan of abdomen pelvis done on August 20, 2019 showed resolution of pelvic fluid collection with a fistulous tract between Rebecca pouch and pelvic pelvic small bowel loop, improved enteritis, new moderate left hydro and mild right hydronephrosis. On August 30, 2019 underwent flex sig with placement of transanal drainage and bilateral ureteral stents. 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 CT/MRI of abdomen pelvis done on December 02, 2019 showed treatment response, reduction in rectal mass., Treatment with 5-FU alone was given on December 16, 2019 followed by break due to to hospitalization for small bowel obstruction and then scheduled for surgery. And SBO resolved on conservative management and patient was discharged home on TPN. On January 17, 2020 underwent colonoscopy with ascending colon snare polypectomy, exploratory laparotomy, extensive lysis of adhesions, completion proctectomy, takedown of end colostomy with creation of colonic J-pouch and end-to-end anastomosis. Cystoscopy and stent placement by urology team, patient was admitted to [facility] on January 25 2 January 30, 2020 with fever, pain, bloody ostomy, she underwent ileoscopy on January 28, 2020 it was normal and no bleeding was seen Patient was seen by colorectal surgery on February 11, 2020 and recommended to complete 6 months of chemotherapy and then reverse in 3 months following completion of chemotherapy. Patient completed 11 cycles of total chemotherapy on April 06, 2020. And during follow-up on June 12, 2020 she underwent excision of anal lesion, pathology consistent with metastatic adenocarcinoma. No rectovaginal fistula. On June 19, 2020 reexcision of perianal adenocarcinoma with additional margin and pathology positive for adenocarcinoma with clear margin. Patient underwent CT scan of chest abdomen pelvis on July 24, 2020 which showed pericecal nodule worrisome for metastatic disease and fluid collection in the presacral space she was admitted to [facility] from July 20- for possible presacral abscess seen on the scan which was drained and culture came back negative but pathology showed metastatic adenocarcinoma and patient was started on systemic chemotherapy with FOLFIRI, which she tolerated well and her second cycle was given on August 17, 2020, patient is considering switching her care to [place] because of inconvenience of traveling back and forth to [place]. She started with third cycle of FOLFIRI here in [place] on 09/10/2020. Ms rBice went to [facility] on 09/17/2020 with abdominal pain, nausea vomiting, lab work-up including urine analysis showed no abnormality, amylase was within normal range. Patient treated symptomatically and improved. As per patient, she stayed dehydrated all the time so she drink lots of water and her nausea vomiting started when she was working her yard, she thinks that she may have overdone it. She also has history of migraine headaches. She completed cycle 4 on September 24, 2020. She was seen Helena Johnson NP at [facility] oncology on 10/05/2020. She had been reporting headache after chemotherapy and lip tingling for the past 3 weeks. She is getting FOLFIRI treatment. She has had no trouble with her ostomy output and was not having abdominal pain. 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 Improved presacral fluid collection with thin residual rim-enhancing collection. Stable omental thickening without discrete nodularity. No definite CT evidence of metastatic disease in the chest. The recommendation was to proceed with FOLFIRI and reimage her in 6 weeks to reassess for continued progression. Her CEA on 10/05/2020 was 5.5. It was recommended that she have a brain MRI to rule out metastasis given that she has headache after chemotherapy and also has neuropathy in her lips. We did arrange this for her. . She did have the MRI of the brain with and without contrast on 10/21/2020. There were no evidence of metastatic disease to the brain. 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 Her had headaches have been better overall with stopping the Aloxi and relying on ondansetron as part of her premed/prechemo regimen. Patient had a follow-up CT scan of chest abdomen pelvis done At [facility] on November 16, 2020 which showed no significant change in the centrally necrotic mass with nodular peripheral enhancement centered in the presacral space representing biopsy-proven metastatic adenocarcinoma. No significant change in the presacral fluid collection and omental thickening without discrete nodularities. No evidence of metastatic disease in the chest, Patient was evaluated in oncology clinic at [facility] on November 16, 2020 at that time based on follow-up CT scan of chest abdomen pelvis finding it was recommended to continue FOLFIRI for another 3 months and then repeat CT scan of chest abdomen pelvis unless patient develops new symptoms, On February 15, 2021, she underwent follow-up CT scan of chest abdomen pelvis which showed no progressive disease identified in chest abdomen or pelvis. Unchanged appearance of recurrence/metastatic rectal cancer with fistulization to the adjacent sigmoid colon and cecum with small presacral gas collection. New 2 mm left lower lobe pulmonary nodule. Improved right-sided hydronephrosis. New left-sided sacral insufficiency fracture. Ms Brcie was evaluated by Dr. Cooney at [facility] and was recommended to continue with FOLFIRI for another 3 months and then repeat scans.Which was done on May 24, 2021 which showed interval progression of disease as evident by enlarging nodule along the anastomosis in addition to enlarging or new peritoneal deposits. Worsening of right hydronephrosis mostly involving lower pole meatus. New subcentimeter liver hypodensity, too small to characterize. New groundglass opacities in the right lung could be infectious/inflammatory. Patient was evaluated by Dr. Cooney, medical oncologist at [facility], clinical trial with [place] [id number] enrollment was discussed but due to inconvenience of driving back and forth every week, patient decided not to consider clinical trial rather agreed with other options offered including regorafenib/nivolumab regimen. As per patient all the side effect, possible benefits associated with the treatment were discussed in detail by Dr. Cooney and her nurse, Has persistent pelvic pain not being controlled with hydrocodone, as per patient she was told that her pain could be due to right hydronephrosis, in the past she had ureteral stent placed in but could not tolerate due to worsening of pain and then asked her urologist to remove it, as per patient now she is referred to another urologist at [facility] and scheduled to see him on next Monday. As far as anorectal fissure is concerned, patient recently underwent Botox injection by Dr. Burch. Came for follow-up, denies any specific complaint except progressive anginal pain and discharge, as per patient she noted stool-like material mixed with blood and mucus per anal although she has colostomy bag, which is functioning fine. Patient states she had episode of nausea which responded well to antiemetics. Otherwise no mouth sores, no thrush, no jaundice, no abdominal pain, no hemoptysis or hematemesis, no skin rash, tolerating regorafenib well and will complete 21 days course next week and also tolerating biweekly nivolumab. Medications: Daily Vitamin 1 Tablet Oral daily, Ibuprofen 1 Tablet (of 800 mg) Oral q 6 hours PRN, Lexapro 1 Tablet (of 10 mg) Oral daily, Lomotil 1 Tablet (of 2.5-0.025 mg) Oral daily, traMADol HCl 1 Each (of 100 mg) Tablet Oral ac (tid) PRN Allergies: pecan nuts, Penicillins, and walnuts. Review of Systems: Review of Systems is not available for this patient. Vital Signs: Performed on Aug 03, 2021 10:41 Height - 69.00 in Weight - 159.2 lbs (LOW) BSA - 1.87 sq.m BMI - 23.51 Temperature - 97.9 F (LOW) Pulse - 59 /min (LOW) Respiration - 18 /min BP - 130/79 mm(hg) O2 Sat - 96 % Pain - 3 Fatigue - 6 Performance Status: 0 - Fully active, able to carry on all predisease activities without restrictions. (ECOG) Physical Examination: ENMT - No mouth sores, no thrush, no jaundice, Respiratory - Lungs are clear to auscultation , Cardiovascular - Regular rate and rhythm of heart, Abdomen - Soft, bowel sounds present, colostomy bag functioning fine, Extremities - No visible edema. Lab/Imaging: Test performed on Jul 20, 2021 11:52 Sodium 137 mmol/L TSH 0.73 uIU/mL Potassium 4.1 mmol/L Chloride 102 mmol/L CO2 24 mmol/L Anion Gap 15.1 BUN 12 mg/dL Creatinine 0.7 mg/dL Cr Clearance (Est) 102.62 mL/min eGFR 85.1 mL/min Glucose 128 mg/dL Osmolality - Calculated 285 mOsm/kg Calcium 9.0 mg/dL Protein, Total 6.4 g/dL Albumin 4.1 g/dL Globulin 2.3 g/dL Bilirubin, Total 0.2 mg/dL ALT (SGPT) 11 U/L AST (SGOT) 19 U/L Alkaline Phosphatase 141 IU/L WBC 5.9 10 3/uL RBC 4.44 10 6/uL HGB 13.1 g/dL HCT 41.3 % MCV 93.0 fl MCH 29.5 pg MCHC 31.7 g/dL RDW 14.6 % Platelet Count 162 10 3/cmm MPV 11.3 fL Neutrophils 4.26 10 3/uL Lymphocytes 1.0 10 3/uL Monocytes 0.5 10 3/uL Eosinophils 0.2 10 3/uL Basophils 0.0 10 3/uL Neutrophil % 71.9 % Lymphocyte % 17.0 % Monocyte % 7.6 % Eosinophil % 3.0 % Basophils % 0.3 % NRBC % 0 % CBC Slide Review Slide Review Perform SLIDE REVIEW AGREES WITH AUTOMATED RESULTS ST CEA 37.2 ng/mL Impression: 1. Recurrent rectal cancer per presacral biopsy done in June 2020 History of stage IIIc, T4 N2 M0 locally advanced rectal adenocarcinoma presenting with perforation diagnosed in early 2019 Status post clinical trial with Epacodostat/capox,, patient developed colitis later on she was switched to FOLFOX on September 09, 2019, oxaliplatin was discontinued after third cycle on October 07, 2019 subsequently continue with 5-FU alone till April 06, 2020, On June 12, 2020 underwent excision of anal lesion which was consistent with metastatic adenocarcinoma and on June 19, 2020 underwent reexcision of perianal adenocarcinoma with clear margin, patient was started on FOLFIRI July 19, 2020 at [facility]. She continues to followup with her physician there but is receiving her treatments locally. Status post FOLFIRI started on August 03, 2020 till May 11, 2021 1 follow-ups CT scan of chest abdomen pelvis done on May 24, 2021 at [facility] shows interval progression of disease as evidenced by enlarging nodule along the anastomosis in addition to enlarging and new peritoneal deposit. Worsening right hydronephrosis mostly involving lower pole, new subcentimeter liver hypodensity, too small to characterize. New groundglass opacities in the right lung could be infectious/inflammatory Started on biweekly nivolumab and regorafenib day 1 through 21 and repeat every 28 days on July 20, 2021 2. History of DVT: Treated with Eliquis, now stopped Anal/rectal fissure, now being treated with Botox injection per Dr. Burch at [facility], last Botox injection was done on 09/08/2021. 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 Pelvic pain, on oxycodone Peripheral neuropathy Plan: Discussed with patient regarding her labs white blood count 7.3 hemoglobin 14.9 hematocrit 46.2 platelets 265,000 CMP within normal limits Clinically, patient doing reasonably well, tolerated first cycle of treatment with nivolumab/regorafenib well, will proceed with next biweekly dose of nivolumab today. Patient is on regorafenib, tolerating well and will complete 21 days course next week and then she will return to clinic in 2 weeks with CBC CMP and if reasonable, will proceed with cycle #2 with regorafenib and next biweekly dose of nivolumab. As far as anal pain and discharge is concerned, patient states she has noticed stool-like material, which means either she is developing fistula or leaking colostomy stump, she will discuss with her surgeon at [facility] in the meantime as far as her anal pain is concerned, she was advised to use sitz bath and use Preparation H, suppositories or cream, if no improvement will consider surgical evaluation. Signed By: Filemon Hickey M.D. <<Signature on File>>
[2021-08-17 11:03] LABS: Basophils % 0.4 %; Eosinophils # 0.1 10^3/uL (0.0-0.8); Eosinophils % 1.6 %; Hematocrit 46.3 % (37.0-47.0); Lymphocytes # 1.4 10^3/uL (0.8-4.8); Lymphocytes % 18.5 %; Mean Corpuscular HGB Conc 32.4 g/dL (30.0-36.0); Mean Corpuscular Hemoglobin 28.6 pg (28.0-34.0); Mean Corpuscular Volume 88.2 fl (81-99); Mean Platelet Volume 10.5 fL (7.4-10.4); Monocytes # 0.7 10^3/uL (0.2-0.9); Monocytes % 9.1 %; Neutrophils # 5.21 10^3/uL (1.8-7.7); Neutrophils % 70.1 %; Nucleated Red Blood Cells % 0 %; Platelet Count 230 10^3/cmm (130-400); Red Blood Count 5.25 10^6/uL (4.1-5.3); Red Cell Distribution Width 13.7 % (12.1-15.1); White Blood Count 7.4 10^3/uL (4.0-10.0)
[2021-08-17 11:22] LABS: Alanine Aminotransferase 12 U/L (0-33); Albumin Level 4.1 g/dL (3.5-5.2); Alkaline Phosphatase 164 IU/L (35-105); Aspartate Amino Transferase 18 U/L (0-32); Blood Urea Nitrogen 13 mg/dL (8-23); Calcium 9.7 mg/dL (8.5-10.5); Carbon Dioxide 22 mmol/L (22-29); Chloride 100 mmol/L (98-107); Globulin 2.8 g/dL (1.3-4.6); Glomerular Filtration Rate 63.7 mL/min (90-130); Glucose 100 mg/dL (65-115); Osmolality Calculated 274 mOsm/kg (285-295); Sodium 132 mmol/L (136-145); Total Bilirubin 0.4 mg/dL (0.15-1.2); Total Protein 6.9 g/dL (6.6-8.7)
[2021-08-17 12:05] LABS: Magnesium 2.2 mg/dL (1.7-2.3)
[2021-08-17 12:15] LABS: Carcinoembryonic Antigen 12.1 ng/mL (0.0-4.7)
--- NOTE | 2021-08-18 08:31 | ONC FU_ITS ---
Tatyana Silverman Progress Note Patient: Kathryn Brice Unit #: [id number]: [id number] Dicatated By: Tatyana Silverman N.P.Date of Visit:Aug 17, 2021 Onc MED Follow-up/Prog Note Chief Complaint: Recurrent rectal adenocarcinoma History of Present Illness: Ms. Brice is a 61-year-old female who was admitted to hospital with abdominal pain, nausea/vomiting and s 20 pound weight loss over the period of 3 months on May 05, 2019. She underwent CT scan of abdomen which showed rectal wall thickening and a mass. A CT scan of abdomen done on May 06, 2019 showed sigmoid pneumatosis consistent with perforation. Ms. Brice underwent flex sigmoidoscopy on May 08, 2019 subsequently diagnostic laparoscopy converted to laparotomy with Molina procedure by Dr. Burch. The pathology showed moderately differentiated invasive adenocarcinoma from the rectal mass biopsy. MMR staining retained by IHC, 11 lymph nodes were negative for metatatic disease. On May 14, 2019 follow-up CT scan of abdomen pelvis showed postoperative changes with fluid and edema adjacent from Rebecca pouch consistent with a leak with peritonitis and ileus. Unchanged rectal mass with a perirectal, perisacral, left common iliac and retroperitoneal lymphadenopathy. Fluid drained by interventional radiologist on May 14, 2019 with the drainage catheter removed on May 17, 2019. On May 27, 2019, pelvic MRIs showed 5.5 cm high rectal mass with multiple mesorectal and inferior mesenteric artery lymph nodes e.g. T4, N2. Postsurgical changes with consistent with dehiscence of Rebecca's pouch, enlarged left common iliac node. On June 07, 2019 CT scan of chest showed 2 1 to 2 cm nodules within lateral basal segment of left lower lobe and and 1.7 x 1.3 right hilar lymph node. Ms Brice was placed on the Epacodostat clinical trial with a short course radiation therapy 3500 rad from June 10-2019. A CT scan of chest abdomen pelvis done on June 13, 2019 showed resolution of pelvic collection with residual soft tissue thickening along Molina's pouch, stable rectal mass and stable LAD. She was started on cycle 1 day 1 CAPOX on July 01, 2019. Patient was admitted to [facility] on July 14-2019 for abdominal pain, nausea vomiting likely radiation enteritis versus chemo toxicity from oral Xeloda but less likely immunotherapy related (epacodostat). She was restarted on Epacodostat on July 18, 2019. CT scan of abdomen pelvis done on July 29, 2019 showed dehiscence of Molina's pouch with fistulization to the adjacent small bowel, and increasing small bowel and rectal wall thickening and edema. Patient was admitted to [facility] again on July 29, 2019 through August 07, 2019 for abdominal pain, flex sig done on July 30, 2019 showed partially obstructing ulcerated mass with retained fluid in the Rebecca pouch with the proximal aspect of Rebecca pouch is ulcerated, status post dilatation and transanal drainage. CT scan of abdomen pelvis done on August 20, 2019 showed resolution of pelvic fluid collection with a fistulous tract between Rebecca pouch and pelvic pelvic small bowel loop, improved enteritis, new moderate left hydro and mild right hydronephrosis. On August 30, 2019 underwent flex sig with placement of transanal drainage and bilateral ureteral stents. 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 CT/MRI of abdomen pelvis done on December 02, 2019 showed treatment response, reduction in rectal mass., Treatment with 5-FU alone was given on December 16, 2019 followed by break due to to hospitalization for small bowel obstruction and then scheduled for surgery. And SBO resolved on conservative management and patient was discharged home on TPN. On January 17, 2020 underwent colonoscopy with ascending colon snare polypectomy, exploratory laparotomy, extensive lysis of adhesions, completion proctectomy, takedown of end colostomy with creation of colonic J-pouch and end-to-end anastomosis. Cystoscopy and stent placement by urology team, patient was admitted to [facility] on January 25 2 January 30, 2020 with fever, pain, bloody ostomy, she underwent ileoscopy on January 28, 2020 it was normal and no bleeding was seen Patient was seen by colorectal surgery on February 11, 2020 and recommended to complete 6 months of chemotherapy and then reverse in 3 months following completion of chemotherapy. Patient completed 11 cycles of total chemotherapy on April 06, 2020. And during follow-up on June 12, 2020 she underwent excision of anal lesion, pathology consistent with metastatic adenocarcinoma. No rectovaginal fistula. On June 19, 2020 reexcision of perianal adenocarcinoma with additional margin and pathology positive for adenocarcinoma with clear margin. Patient underwent CT scan of chest abdomen pelvis on July 24, 2020 which showed pericecal nodule worrisome for metastatic disease and fluid collection in the presacral space she was admitted to [facility] from July 20- for possible presacral abscess seen on the scan which was drained and culture came back negative but pathology showed metastatic adenocarcinoma and patient was started on systemic chemotherapy with FOLFIRI, which she tolerated well and her second cycle was given on August 17, 2020, patient is considering switching her care to [place] because of inconvenience of traveling back and forth to [place]. She started with third cycle of FOLFIRI here in [place] on 09/10/2020. Ms Brice went to [facility] on 09/17/2020 with abdominal pain, nausea vomiting, lab work-up including urine analysis showed no abnormality, amylase was within normal range. Patient treated symptomatically and improved. As per patient, she stayed dehydrated all the time so she drink lots of water and her nausea vomiting started when she was working her yard, she thinks that she may have overdone it. She also has history of migraine headaches. She completed cycle 4 on September 24, 2020. She was seen Helena Johnson NP at [facility] oncology on 10/05/2020. She had been reporting headache after chemotherapy and lip tingling for the past 3 weeks. She is getting FOLFIRI treatment. She has had no trouble with her ostomy output and was not having abdominal pain. 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 Improved presacral fluid collection with thin residual rim-enhancing collection. Stable omental thickening without discrete nodularity. No definite CT evidence of metastatic disease in the chest. The recommendation was to proceed with FOLFIRI and reimage her in 6 weeks to reassess for continued progression. Her CEA on 10/05/2020 was 5.5. It was recommended that she have a brain MRI to rule out metastasis given that she has headache after chemotherapy and also has neuropathy in her lips. We did arrange this for her. . She did have the MRI of the brain with and without contrast on 10/21/2020. There were no evidence of metastatic disease to the brain. 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 Her had headaches have been better overall with stopping the Aloxi and relying on ondansetron as part of her premed/prechemo regimen. Patient had a follow-up CT scan of chest abdomen pelvis done At [facility] on November 16, 2020 which showed no significant change in the centrally necrotic mass with nodular peripheral enhancement centered in the presacral space representing biopsy-proven metastatic adenocarcinoma. No significant change in the presacral fluid collection and omental thickening without discrete nodularities. No evidence of metastatic disease in the chest, Patient was evaluated in oncology clinic at [facility] on November 16, 2020 at that time based on follow-up CT scan of chest abdomen pelvis finding it was recommended to continue FOLFIRI for another 3 months and then repeat CT scan of chest abdomen pelvis unless patient develops new symptoms, On February 15, 2021, she underwent follow-up CT scan of chest abdomen pelvis which showed no progressive disease identified in chest abdomen or pelvis. Unchanged appearance of recurrence/metastatic rectal cancer with fistulization to the adjacent sigmoid colon and cecum with small presacral gas collection. New 2 mm left lower lobe pulmonary nodule. Improved right-sided hydronephrosis. New left-sided sacral insufficiency fracture. Ms Brice was evaluated by Dr. Cooney at [facility] and was recommended to continue with FOLFIRI for another 3 months and then repeat scans.Which was done on May 24, 2021 which showed interval progression of disease as evident by enlarging nodule along the anastomosis in addition to enlarging or new peritoneal deposits. Worsening of right hydronephrosis mostly involving lower pole meatus. New subcentimeter liver hypodensity, too small to characterize. New groundglass opacities in the right lung could be infectious/inflammatory. Patient was evaluated by Dr. Cooney, medical oncologist at [facility], clinical trial with [place] [id number] enrollment was discussed but due to inconvenience of driving back and forth every week, patient decided not to consider clinical trial rather agreed with other options offered including regorafenib/nivolumab regimen. As per patient all the side effect, possible benefits associated with the treatment were discussed in detail by Dr. Cooney and her nurse, Has persistent pelvic pain not being controlled with hydrocodone, as per patient she was told that her pain could be due to right hydronephrosis, in the past she had ureteral stent placed in but could not tolerate due to worsening of pain and then asked her urologist to remove it, as per patient now she is referred to another urologist at [facility] and scheduled to see him on next Monday. As far as anorectal fissure is concerned, patient recently underwent Botox injection by Dr. Burch. Patient presents today for follow-up. She has been doing fairly well. Her appetite has been good. She denies fever, chills, night sweats. No sinus drainage or mouth sores. No shortness of breath, cough, chest pain. She is complaining of drainage this seems to be getting worse. She has been having follow-up at [facility] for this. She is currently on antibiotics for a urinary tract infection. She has been complaining of muscle cramps in her hands and feet and around her hips. She wonders if it has something to do with her new treatment that she is on. She has completed cycle 1 of regorafenib and is due to start cycle 2 today. She is on a 21/28-day cycle. She is also receiving nivolumab every 2 weeks. She is planning a trip to [place] and is planning to leave tomorrow. Review Of Symptoms: See above. Past Medical History: Gout Hydronephrosis Mitral valve prolapse Perforated diverticulum Past Surgical History: Appendectomy Bladder surgery Lower anterior resection Tubal ligation Ureteral stent placement Covid vaccine #3 in 2020 Covid vaccine #2 in 2020 Covid vaccine #1 in 2020 Allergies: pecan nuts, Penicillins, and walnuts. Medications: Daily Vitamin 1 Tablet Oral daily Ibuprofen 1 Tablet (of 800 mg) Oral q 6 hours PRN Lexapro 1 Tablet (of 10 mg) Oral daily Lomotil 1 Tablet (of 2.5-0.025 mg) Oral daily oxyCODONE HCl 1 Tablet Oral PRN Promethazine HCl Tablet Oral PRN Family History: Ms. Brice's mother at age 83: congestive heart failure, and cirrhosis. Ms. Brice's father at age 80: chronic obstructive pulmonary disease. Ms. Brice has 1 brother who is : overdosage. Social History: Ms. Brice is . Ms. Brice no longer smokes. Physical Examination: Performed on Aug 17, 2021 11:29: Height - 69.00 in, Weight - 156.2 lbs (LOW), BSA - 1.86 sq.m, BMI - 23.07, Temperature - 97.4 F (LOW), Pulse - 72 /min, Respiration - 18 /min, BP - 136/89 mm(hg), O2 Sat - 97 %, Pain - 0, and Fatigue - 7. Performance Status: 0 - Fully active, able to carry on all predisease activities without restrictions. (ECOG) Constitutional Alert, cooperative, oriented. Mood and affect appropriate. Appears close to chronological age. Well nourished. Well developed. Eyes Conjunctivae and sclerae are clear and without icterus. Pupils are reactive and equal. Respiratory Lungs are clear to auscultation without rhonchi or wheezing. Cardiovascular Regular rate and rhythm of heart without murmurs, gallops or rubs. Abdomen Non-tender, non-distended, no masses, ascites or hepatosplenomegaly. Good bowel sounds. No guarding or rebound tenderness. Extremities No visible deformities, no cyanosis, clubbing or edema. Pulses 3+ and equal bilaterally. Musculoskeletal No tenderness or swelling, normal range of motion without obvious weakness. Psychiatric Alert and oriented times three. Coherent speech. Verbalizes understanding of our discussions today. Laboratory: Test performed on Aug 17, 2021 10:45 Magnesium 2.2 mg/dL Sodium 132 mmol/L Potassium 5.0 mmol/L Chloride 100 mmol/L CO2 22 mmol/L Anion Gap 15.0 BUN 13 mg/dL Creatinine 0.9 mg/dL Cr Clearance (Est) 74.8300 mL/min eGFR 63.7 mL/min Glucose 100 mg/dL Osmolality - Calculated 274 mOsm/kg Calcium 9.7 mg/dL Protein, Total 6.9 g/dL Albumin 4.1 g/dL Globulin 2.8 g/dL Bilirubin, Total 0.4 mg/dL ALT (SGPT) 12 U/L AST (SGOT) 18 U/L Alkaline Phosphatase 164 IU/L WBC 7.4 10 3/uL RBC 5.25 10 6/uL HGB 15.0 g/dL HCT 46.3 % MCV 88.2 fl MCH 28.6 pg MCHC 32.4 g/dL RDW 13.7 % Platelet Count 230 10 3/cmm MPV 10.5 fL Neutrophils 5.21 10 3/uL Lymphocytes 1.4 10 3/uL Monocytes 0.7 10 3/uL Eosinophils 0.1 10 3/uL Basophils 0.0 10 3/uL Neutrophil % 70.1 % Lymphocyte % 18.5 % Monocyte % 9.1 % Eosinophil % 1.6 % Basophils % 0.4 % NRBC % 0 % CEA 12.1 ng/mL Test performed on Jul 20, 2021 11:52 TSH 0.73 uIU/mL CBC Slide Review Slide Review Perform SLIDE REVIEW AGREES WITH AUTOMATED RESULTS ST Impression: 1. Recurrent rectal cancer per presacral biopsy done in June 2020 History of stage IIIc, T4 N2 M0 locally advanced rectal adenocarcinoma presenting with perforation diagnosed in early 2019 Status post clinical trial with Epacodostat/capox,, patient developed colitis later on she was switched to FOLFOX on September 09, 2019, oxaliplatin was discontinued after third cycle on October 07, 2019 subsequently continue with 5-FU alone till April 06, 2020, On June 12, 2020 underwent excision of anal lesion which was consistent with metastatic adenocarcinoma and on June 19, 2020 underwent reexcision of perianal adenocarcinoma with clear margin, patient was started on FOLFIRI July 19, 2020 at [facility]. She continues to followup with her physician there but is receiving her treatments locally. Status post FOLFIRI started on August 03, 2020 till May 11, 2021 1 follow-ups CT scan of chest abdomen pelvis done on May 24, 2021 at [facility] shows interval progression of disease as evidenced by enlarging nodule along the anastomosis in addition to enlarging and new peritoneal deposit. Worsening right hydronephrosis mostly involving lower pole, new subcentimeter liver hypodensity, too small to characterize. New groundglass opacities in the right lung could be infectious/inflammatory Started on biweekly nivolumab and regorafenib day 1 through 21 and repeat every 28 days on July 20, 2021 2. History of DVT: Treated with Eliquis, now stopped Anal/rectal fissure, now being treated with Botox injection per Dr. Burch at [facility], last Botox injection was done on 09/08/2021. 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 Pelvic pain, on oxycodone Peripheral neuropathy Plan: Labs reviewed with patient with WBC 7.4, hemoglobin 15.0, hematocrit 46.3, and platelet count 230,000. Due to muscle spasms we added a magnesium level and it was 2.2. Her CEA is 12.1 which is down from 37.2 at last check. Patient is planning a trip to [place]. She has been having trouble with muscle spasms which could be related to either medication that she is on. We will hold nivolumab today but she will continue the regorafenib and reevaluate in 2 weeks. She is currently on Macrobid for a UTI. Since she will be out of the country I will prescribe Cipro 500 mg twice daily in case her UTI symptoms return. Her UTI is related to anal discharge that has been an ongoing problem although she has a colostomy. She has been followed by [place]. Patient to return to the clinic in 2 weeks with CBC, CMP. Signed By: Tatyana Silverman N.P. <<Signature on File>>
== END 2021-08-28 23:59 | disposition home or self-care (01) ==
LOC: ONCMED 06:41
PROVIDERS: Internal Medicine Hematology & Oncology; PCP Family Medicine; Visit Provider Nurse Practitioner Family
DX: Z51.12 Encounter for antineoplastic immunotherapy (principal); C20 Malignant neoplasm of rectum; C78.5 Secondary malignant neoplasm of large intestine and rectum; K52.9 Noninfective gastroenteritis and colitis, unspecified; R91.1 Solitary pulmonary nodule; Z86.718 Personal history of other venous thrombosis and embolism; Z79.01 Long term (current) use of anticoagulants; R10.2 Pelvic and perineal pain; Z79.891 Long term (current) use of opiate analgesic; G62.9 Polyneuropathy, unspecified; Z79.899 Other long term (current) drug therapy
CPT/HCPCS: 36591; 80053; 82378; 83735; 85025; 96413; 99215; J7050; J9299

== ENCOUNTER 2021-09-04 09:09 | Emergency (ER) | payer MEDICAID, SELFPAY ==
--- NOTE | 2021-09-04 09:12 | ED_ITS ---
HPI - COVID General: Chief Complaint: COVID symptoms Stated Complaint: COVID + Tested monday not getting better Time Seen by Provider: 09/04/21 09:12 Source: patient Mode of arrival: ambulatory Limitations: no limitations Triage information: Has fever, cough or shortness of breath . Exposure to COVID + person last 14 days History of Present Illness: 61-year-old female presents emergency room complaining of cough cold congestion. She tested positive for COVID on August 29. Her symptoms began 8 days ago. She had recently traveled out of the country. She is having myalgias cough and shortness of breath cough is been nonproductive. She has a history of colorectal cancer she is still current receiving chemotherapy. MD complaint: known COVID positive Prior covid testing: yes, results known Prior testing date: 08/30/21 COVID 19 common symptoms: positive fever(s), chills, cough, non-productive cough, dyspnea, fatigue, body aches, headache(s), nasal congestion and diarrhea; negative productive cough COVID 19 other sytmptoms: negative chest pain or requiring oxygen Onset (ago): day(s) (8) Severity: mild Pertinent comorbid conditions: cancer (Colorectal) Treatment prior to arrival: none Review of Systems Const: Reports: fever(s), chills, body aches and fatigue ENMT: Reports: nasal congestion Card: Denies: chest pain, edema, dyspnea on exertion or orthopnea Resp: Reports: dyspnea and non-productive cough; Denies: productive cough or wheezing GI: Reports: diarrhea : Denies: flank pain, difficulty voiding, dysuria, urinary frequency or urinary urgency Skin/Breast: Denies: rash or pruritus Neuro: Reports: headache(s) PFSH ED PFSH: Medical History (Updated 09/04/21 @ 10:02 by Maldonado Johnson DO) 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 Maloney [place] Surgical History H/O colectomy Diverting colostomy placement History of appendectomy History of bilateral tubal ligation History of bladder surgery S/P ureteral stent placement Placed in August 2019 and removed in September 2019 secondary to severe intolerable discomfort. Sounds like metallic stents. Family History Other CAD (coronary artery disease) Denies family history of Diabetes Hyperlipidemia Cancer Hypertension Social History Smoking and tobacco status: former smoker Alcohol intake: current Alcohol intake frequency: holidays/special occasions only Household members: family Housing: House Physical Exam Const: COMMON NORMALS: no acute distress GENERAL APPEARANCE: cooperative and comfortable ORIENTATION/CONSCIOUSNESS: Yes awake, Yes oriented to person, Yes oriented to place and Yes oriented to time HENMT: COMMON NORMALS: normocephalic, atraumatic and hearing grossly normal bilaterally HEAD & SCALP: normocephalic and atraumatic Neck/C-Spine: COMMON NORMALS: no JVD Resp: COMMON NORMALS: normal respiratory effort, No retractions, No use of accessory muscles and clear to auscultation bilaterally AUSCULTATION: clear to auscultation bilaterally Cardio: COMMON NORMALS: no JVD, regular rate, regular rhythm and No murmurs present (Cardio) RATE: regular rate RHYTHM: regular rhythm GI: COMMON NORMALS: Soft to palpation and No hepatosplenomegaly present AUSCULTATION: Yes normoactive bowel sounds PALPATION: Yes Soft to palpation, No Tenderness to palpation present (GI), No Guarding due to palpation present (GI) and Yes No hepatosplenomegaly present Extremity: COMMON NORMALS: normal to inspection, capillary refill normal, no clubbing, cyanosis or edema, no calf tenderness and no pedal edema Neuro: SENSORIUM/ORIENTATION: Yes oriented to person, Yes oriented to place and Yes oriented to time Skin: COMMON NORMALS: no rashes or lesions noted GENERAL SKIN EXAM: no rashes or lesions noted Course Vital Signs: Vital signs: Vital Signs Pulse Rate 64 09/04/21 10:16 Respiratory Rate 20 H 09/04/21 10:16 Blood Pressure 125/76 09/04/21 10:16 Pulse Oximetry 97 09/04/21 10:16 [facility] - COVID Medical Decision Making Patient largely asymptomatic. There is no evidence of hypoxia chest x-ray is clear. She does meet the criteria for monoclonal antibodies unfortunately we do not have any available. On the other hand there is likely rather limited benefit at day 8. Discussed signs and symptoms to watch for. If patient has any worsening return to the emergency room. Anticipate she will continue to feel ill for the next several days before beginning to improve. Medical Records I reviewed the patient's medical records. Lab Data Radiology Impressions Chest X-Ray 09/04/21 09:26 IMPRESSION: No acute cardiopulmonary abnormality identified. Discharge Plan Discharge Patient Disposition: Home Clinical Impression: COVID-19 Condition: Stable Prescriptions: No Action diphenoxylate-atropine 2.5-0.025 mg tablet 1 tab PO DAILY 0RF loperamide 2 mg Tablet 4 mg PO BID 0RF dexamethasone 4 mg tablet See Rx Instructions .ROUTE .COMPLEX 0RF Rx Instructions: 8MG PO DAILY ON DAYS 2 AND 3 AFTER CHEMO TREATMENTS oxycodone 10 mg tablet 10 mg PO Q4H PRN (Reason: Pain) 0RF multivitamin Tablet 1 tab PO DAILY@07 0RF ondansetron 8 mg tablet,disintegrating 8 mg PO Q6H PRN (Reason: Nausea And Vomiting) 0RF ibuprofen 200 mg Tablet 800 mg PO TID PRN (Reason: Pain) 0RF Excedrin Migraine 250-250-65 mg Tablet 2 tab PO PRN 0RF Proferrin ES 1 tab PO DAILY@07 0RF escitalopram oxalate 10 mg tablet 10 mg PO DAILY@07 0RF promethazine 25 mg tablet 25 mg PO Q6H PRN (Reason: nausea and vomiting) Qty: 20 0RF Ativan 2 mg tablet 2 mg PO QID PRN (Reason: nausea and vomiting) Qty: 14 0RF prochlorperazine maleate [Compazine] 10 mg Tablet 10 mg PO Q6H PRN (Reason: Nausea) 0RF tramadol 100 mg tablet 100 mg PO Q8H PRN (Reason: pain) Qty: 30 0RF oxycodone 10 mg tablet 10 mg PO Q6H PRN (Reason: pain) Qty: 20 0RF Discharge Orders: Discharge ED (Routine); Ordered 09/04/21 Ordered By: Maldonado Johnson Referrals: Ciera Jeff MD [Primary Care Provider] - Activity Restrictions/Additional Instructions: Return if you have worsening symptoms. Coding Level of Care Code ED [employer] Development Trainer for Michael Lilly
[2021-09-04 09:26] VITALS: BP 122/81; PULSE 78; RESP 20; O2SAT 98
--- NOTE | 2021-09-04 09:26 | XRR_ITS ---
PROCEDURE INFORMATION: Exam: XR Chest Exam date and time: 09/04/2021 9:43 AM Age: 61 years old Clinical indication: Cough and dyspnea. Prior port placement. TECHNIQUE: Imaging protocol: XR of the chest. Views: 1 view. COMPARISON: CT Chest/Abdomen/Pelvis w IV* 07/20/2020 7:44 AM FINDINGS: Tubes, catheters and devices: Right port with tip at the SVC/right atrial junction. Lungs: No pulmonary consolidation. Pleural spaces: No pleural effusion. No pneumothorax. Heart/Mediastinum: The cardiac silhouette is unremarkable. No gross evidence of pneumomediastinum. Bones/joints: No gross fracture. There is an intra-articular body in the axillary recess of the right glenohumeral joint that measures 2.1 cm. XR/XR chest 1V portable [id number] IMPRESSION: No acute cardiopulmonary abnormality identified.
[2021-09-04 09:44] VITALS: O2SAT 96
[2021-09-04 10:16] VITALS: BP 125/76; PULSE 64; RESP 20; O2SAT 97
== END 2021-09-04 10:19 | disposition home or self-care (01) ==
PROVIDERS: Emergency Provider Family Medicine; PCP Family Medicine
DX: U07.1 COVID-19 (principal)
CPT/HCPCS: 71045; 99283

== ENCOUNTER 2021-09-14 08:29 | Oncology outpatient (recurring) (ONCR) | payer MEDICAID, SELFPAY ==
[2021-09-14 08:52] LABS: Basophils # 0.1 10^3/uL (0.0-0.1); Basophils % 1.3 %; Eosinophils # 0.1 10^3/uL (0.0-0.8); Eosinophils % 1.9 %; Hemoglobin 13.6 g/dL (11.5-15.3); Lymphocytes # 1.2 10^3/uL (0.8-4.8); Lymphocytes % 18.2 %; Mean Corpuscular HGB Conc 31.6 g/dL (30.0-36.0); Mean Corpuscular Volume 88.7 fl (81-99); Mean Platelet Volume 9.9 fL (7.4-10.4); Monocytes # 0.7 10^3/uL (0.2-0.9); Monocytes % 10.5 %; Neutrophils # 4.31 10^3/uL (1.8-7.7); Neutrophils % 67.6 %; Nucleated Red Blood Cells % 0 %; Platelet Count 269 10^3/cmm (130-400); Red Blood Count 4.85 10^6/uL (4.1-5.3); Red Cell Distribution Width 14.7 % (12.1-15.1); White Blood Count 6.4 10^3/uL (4.0-10.0)
[2021-09-14 09:24] LABS: Alanine Aminotransferase 13 U/L (0-33); Albumin Level 3.8 g/dL (3.5-5.2); Alkaline Phosphatase 129 IU/L (35-105); Anion Gap 14.3 (5-19); Aspartate Amino Transferase 15 U/L (0-32); Blood Urea Nitrogen 11 mg/dL (8-23); Calcium 8.7 mg/dL (8.5-10.5); Carbon Dioxide 23 mmol/L (22-29); Chloride 104 mmol/L (98-107); Globulin 2.8 g/dL (1.3-4.6); Glomerular Filtration Rate 101.6 mL/min (90-130); Glucose 98 mg/dL (65-115); Osmolality Calculated 283 mOsm/kg (285-295); Potassium 4.3 mmol/L (3.5-5.1); Sodium 137 mmol/L (136-145); Total Bilirubin 0.4 mg/dL (0.15-1.2); Total Protein 6.6 g/dL (6.6-8.7)
[2021-09-14] MEDS: sodium chloride 0.9% 250 ML 75 ML IV (11:06)
[2021-09-14 12:37] LABS: Carcinoembryonic Antigen 3.7 ng/mL (0.0-4.7)
== END 2021-09-28 23:59 | disposition home or self-care (01) ==
PROVIDERS: PCP Family Medicine; Visit Provider Nurse Practitioner Family
DX: Z51.12 Encounter for antineoplastic immunotherapy (principal); C20 Malignant neoplasm of rectum; C78.5 Secondary malignant neoplasm of large intestine and rectum; C78.6 Secondary malignant neoplasm of retroperitoneum and peritoneum; N13.30 Unspecified hydronephrosis; Z79.899 Other long term (current) drug therapy; Z86.16 Personal history of COVID-19; Z93.3 Colostomy status
CPT/HCPCS: 80053; 82378; 85025; 96413; 99215; 99999; J7050; J9299

== ENCOUNTER 2021-10-21 08:30 | Oncology outpatient (recurring) (ONCR) | payer MEDICAID, SELFPAY ==
[2021-09-30 08:56] LABS: Basophils % 0.6 %; Eosinophils # 0.2 10^3/uL (0.0-0.8); Eosinophils % 2.9 %; Hematocrit 42.5 % (37.0-47.0); Hemoglobin 13.7 g/dL (11.5-15.3); Lymphocytes # 1.1 10^3/uL (0.8-4.8); Lymphocytes % 16.4 %; Mean Corpuscular HGB Conc 32.2 g/dL (30.0-36.0); Mean Corpuscular Hemoglobin 28.1 pg (28.0-34.0); Mean Corpuscular Volume 87.3 fl (81-99); Monocytes # 0.6 10^3/uL (0.2-0.9); Monocytes % 8.9 %; Neutrophils # 4.86 10^3/uL (1.8-7.7); Neutrophils % 70.9 %; Nucleated Red Blood Cells % 0 %; Platelet Count 177 10^3/cmm (130-400); Red Blood Count 4.87 10^6/uL (4.1-5.3); Red Cell Distribution Width 14.9 % (12.1-15.1); White Blood Count 6.9 10^3/uL (4.0-10.0)
[2021-09-30 09:22] LABS: Alanine Aminotransferase 12 U/L (0-33); Albumin Level 3.6 g/dL (3.5-5.2); Alkaline Phosphatase 126 IU/L (35-105); Anion Gap 14.3 (5-19); Aspartate Amino Transferase 15 U/L (0-32); Blood Urea Nitrogen 9 mg/dL (8-23); Calcium 8.8 mg/dL (8.5-10.5); Carbon Dioxide 25 mmol/L (22-29); Chloride 103 mmol/L (98-107); Globulin 3.1 g/dL (1.3-4.6); Glomerular Filtration Rate 85.1 mL/min (90-130); Glucose 98 mg/dL (65-115); Osmolality Calculated 285 mOsm/kg (285-295); Potassium 4.3 mmol/L (3.5-5.1); Sodium 138 mmol/L (136-145); Thyroid Stimulating Hormone 0.86 uIU/mL (0.27-4.20); Total Bilirubin 0.6 mg/dL (0.15-1.2); Total Protein 6.7 g/dL (6.6-8.7)
[2021-09-30 11:38] VITALS: BP 109/64; PULSE 64; RESP 18; TEMP 37; O2SAT 99
[2021-10-21 08:46] VITALS: BMI 22.0
[2021-10-21 08:54] LABS: Basophils % 0.6 %; Eosinophils # 0.1 10^3/uL (0.0-0.8); Eosinophils % 1.6 %; Hematocrit 41.7 % (37.0-47.0); Hemoglobin 13.4 g/dL (11.5-15.3); Lymphocytes # 1.2 10^3/uL (0.8-4.8); Lymphocytes % 17.2 %; Mean Corpuscular HGB Conc 32.1 g/dL (30.0-36.0); Mean Corpuscular Hemoglobin 28.3 pg (28.0-34.0); Mean Platelet Volume 9.8 fL (7.4-10.4); Monocytes # 0.6 10^3/uL (0.2-0.9); Monocytes % 8.5 %; Neutrophils % 71.8 %; Nucleated Red Blood Cells % 0 %; Platelet Count 221 10^3/cmm (130-400); Red Blood Count 4.74 10^6/uL (4.1-5.3); Red Cell Distribution Width 16.8 % (12.1-15.1); White Blood Count 6.7 10^3/uL (4.0-10.0)
[2021-10-21 09:24] LABS: Alanine Aminotransferase 14 U/L (0-33); Alkaline Phosphatase 114 IU/L (35-105); Anion Gap 15.6 (5-19); Aspartate Amino Transferase 20 U/L (0-32); Blood Urea Nitrogen 13 mg/dL (8-23); Calcium 8.9 mg/dL (8.5-10.5); Carbon Dioxide 22 mmol/L (22-29); Chloride 105 mmol/L (98-107); Globulin 2.7 g/dL (1.3-4.6); Glomerular Filtration Rate 101.6 mL/min (90-130); Glucose 119 mg/dL (65-115); Osmolality Calculated 287 mOsm/kg (285-295); Potassium 4.6 mmol/L (3.5-5.1); Sodium 138 mmol/L (136-145); Thyroid Stimulating Hormone 0.02 uIU/mL (0.27-4.20); Total Bilirubin 0.3 mg/dL (0.15-1.2); Total Protein 6.7 g/dL (6.6-8.7)
[2021-10-21] MEDS: sodium chloride 0.9% 250 ML 75 ML IV (10:54)
[2021-10-21 11:50] VITALS: BP 103/68; PULSE 18; RESP 71; TEMP 36.5; O2SAT 98
== END 2021-10-28 23:59 | disposition home or self-care (01) ==
PROVIDERS: Internal Medicine Hematology & Oncology; PCP Family Medicine; Visit Provider Nurse Practitioner Family
DX: Z51.11 Encounter for antineoplastic chemotherapy (principal); Z93.3 Colostomy status; C20 Malignant neoplasm of rectum
CPT/HCPCS: 80053; 84443; 85025; 96413; 99214; 99215; J7050; J9299

== ENCOUNTER 2021-11-18 08:30 | Oncology outpatient (recurring) (ONCR) | payer MEDICARE, MEDICAID, SELFPAY ==
[2021-11-04 08:13] VITALS: BMI 21.7
[2021-11-04 08:37] LABS: Basophils # 0.1 10^3/uL (0.0-0.1); Basophils % 0.9 %; Eosinophils # 0.1 10^3/uL (0.0-0.8); Eosinophils % 1.5 %; Hematocrit 42.2 % (37.0-47.0); Hemoglobin 13.8 g/dL (11.5-15.3); Lymphocytes # 1.1 10^3/uL (0.8-4.8); Lymphocytes % 18.4 %; Mean Corpuscular HGB Conc 32.7 g/dL (30.0-36.0); Mean Corpuscular Volume 85.6 fl (81-99); Mean Platelet Volume 10.3 fL (7.4-10.4); Monocytes # 0.7 10^3/uL (0.2-0.9); Neutrophils # 3.88 10^3/uL (1.8-7.7); Neutrophils % 66.7 %; Nucleated Red Blood Cells % 0 %; Platelet Count 249 10^3/cmm (130-400); Red Blood Count 4.93 10^6/uL (4.1-5.3); White Blood Count 5.8 10^3/uL (4.0-10.0)
[2021-11-04 09:05] LABS: Alanine Aminotransferase 14 U/L (0-33); Albumin Level 3.9 g/dL (3.5-5.2); Alkaline Phosphatase 126 IU/L (35-105); Anion Gap 16.6 (5-19); Aspartate Amino Transferase 20 U/L (0-32); Blood Urea Nitrogen 11 mg/dL (8-23); Calcium 9.1 mg/dL (8.5-10.5); Carbon Dioxide 24 mmol/L (22-29); Chloride 100 mmol/L (98-107); Globulin 3.2 g/dL (1.3-4.6); Glomerular Filtration Rate 101.6 mL/min (90-130); Glucose 101 mg/dL (65-115); Osmolality Calculated 282 mOsm/kg (285-295); Potassium 4.6 mmol/L (3.5-5.1); Sodium 136 mmol/L (136-145); Thyroid Stimulating Hormone 0.02 uIU/mL (0.27-4.20); Total Bilirubin 0.6 mg/dL (0.15-1.2); Total Protein 7.1 g/dL (6.6-8.7)
[2021-11-04] MEDS: sodium chloride 0.9% 250 ML 75 ML IV (10:16)
[2021-11-04 11:30] VITALS: BP 102/66; PULSE 18; RESP 70; TEMP 36.6; O2SAT 98
[2021-11-18 08:53] LABS: Basophils % 0.3 %; Eosinophils # 0.1 10^3/uL (0.0-0.8); Eosinophils % 1.4 %; Hematocrit 40.4 % (37.0-47.0); Hemoglobin 12.8 g/dL (11.5-15.3); Lymphocytes # 1.4 10^3/uL (0.8-4.8); Lymphocytes % 14.4 %; Mean Corpuscular HGB Conc 31.7 g/dL (30.0-36.0); Mean Corpuscular Hemoglobin 27.8 pg (28.0-34.0); Mean Corpuscular Volume 87.6 fl (81-99); Mean Platelet Volume 9.8 fL (7.4-10.4); Monocytes # 0.8 10^3/uL (0.2-0.9); Monocytes % 8.3 %; Neutrophils # 7.28 10^3/uL (1.8-7.7); Neutrophils % 75.2 %; Nucleated Red Blood Cells % 0 %; Platelet Count 279 10^3/cmm (130-400); Red Blood Count 4.61 10^6/uL (4.1-5.3); Red Cell Distribution Width 15.4 % (12.1-15.1); White Blood Count 9.7 10^3/uL (4.0-10.0)
[2021-11-18 09:03] VITALS: BMI 21.1
[2021-11-18 09:28] LABS: Carcinoembryonic Antigen 1.6 ng/mL (0.0-4.7); Thyroid Stimulating Hormone 0.01 uIU/mL (0.27-4.20)
[2021-11-18 09:41] LABS: Alanine Aminotransferase 21 U/L (0-33); Albumin Level 3.7 g/dL (3.5-5.2); Alkaline Phosphatase 121 IU/L (35-105); Anion Gap 16.7 (5-19); Aspartate Amino Transferase 22 U/L (0-32); Blood Urea Nitrogen 16 mg/dL (8-23); Calcium 9.5 mg/dL (8.5-10.5); Carbon Dioxide 23 mmol/L (22-29); Chloride 99 mmol/L (98-107); Globulin 3.5 g/dL (1.3-4.6); Glomerular Filtration Rate 101.6 mL/min (90-130); Glucose 102 mg/dL (65-115); Osmolality Calculated 279 mOsm/kg (285-295); Potassium 4.7 mmol/L (3.5-5.1); Sodium 134 mmol/L (136-145); Total Bilirubin 0.3 mg/dL (0.15-1.2); Total Protein 7.2 g/dL (6.6-8.7)
[2021-11-18 10:57] LABS: Free T4 Free Thyroxine 2.93 ng/dL (0.82-1.77); T3 Free 5.9 PG/ML (2.0-4.4)
[2021-11-18] MEDS: sodium chloride 0.9% 250 ML 100 ML IV (10:58)
[2021-11-18 11:56] VITALS: BP 106/67; PULSE 68; RESP 16; TEMP 36.4; O2SAT 96
== END 2021-11-28 23:59 | disposition home or self-care (01) ==
PROVIDERS: Internal Medicine Hematology & Oncology; PCP Family Medicine; Visit Provider Nurse Practitioner Family
DX: Z51.12 Encounter for antineoplastic immunotherapy (principal); C20 Malignant neoplasm of rectum; Z93.3 Colostomy status
CPT/HCPCS: 80053; 82378; 84439; 84443; 84481; 85025; 96413; 99214; 99215; J7050; J9299

== ENCOUNTER 2021-12-22 12:00 | Oncology outpatient (recurring) (ONCR) | payer MEDICARE, MEDICAID, SELFPAY ==
[2021-12-02 09:09] LABS: Basophils % 0.1 %; Eosinophils # 0.2 10^3/uL (0.0-0.8); Hematocrit 41.7 % (37.0-47.0); Hemoglobin 13.5 g/dL (11.5-15.3); Lymphocytes # 1.4 10^3/uL (0.8-4.8); Lymphocytes % 17.8 %; Mean Corpuscular HGB Conc 32.4 g/dL (30.0-36.0); Mean Corpuscular Hemoglobin 27.5 pg (28.0-34.0); Mean Corpuscular Volume 84.9 fl (81-99); Mean Platelet Volume 9.7 fL (7.4-10.4); Monocytes # 0.6 10^3/uL (0.2-0.9); Monocytes % 7.9 %; Neutrophils # 5.59 10^3/uL (1.8-7.7); Neutrophils % 71.6 %; Nucleated Red Blood Cells % 0 %; Platelet Count 306 10^3/cmm (130-400); Red Blood Count 4.91 10^6/uL (4.1-5.3); Red Cell Distribution Width 14.6 % (12.1-15.1); White Blood Count 7.8 10^3/uL (4.0-10.0)
[2021-12-02 10:02] LABS: Alanine Aminotransferase 8 U/L (0-33); Albumin Level 3.6 g/dL (3.5-5.2); Alkaline Phosphatase 126 IU/L (35-105); Anion Gap 18.2 (5-19); Aspartate Amino Transferase 17 U/L (0-32); Blood Urea Nitrogen 10 mg/dL (8-23); Calcium 9.4 mg/dL (8.5-10.5); Carbon Dioxide 24 mmol/L (22-29); Chloride 103 mmol/L (98-107); Globulin 3.5 g/dL (1.3-4.6); Glomerular Filtration Rate 72.9 mL/min (90-130); Glucose 100 mg/dL (65-115); Osmolality Calculated 289 mOsm/kg (285-295); Potassium 5.2 mmol/L (3.5-5.1); Sodium 140 mmol/L (136-145); Thyroid Stimulating Hormone 0.15 uIU/mL (0.27-4.20); Total Bilirubin 0.3 mg/dL (0.15-1.2); Total Protein 7.1 g/dL (6.6-8.7)
[2021-12-16 09:14] LABS: Basophils % 0.8 %; Eosinophils # 0.2 10^3/uL (0.0-0.8); Eosinophils % 3.6 %; Hematocrit 40.9 % (37.0-47.0); Hemoglobin 12.8 g/dL (11.5-15.3); Lymphocytes # 1.3 10^3/uL (0.8-4.8); Lymphocytes % 24.6 %; Mean Corpuscular HGB Conc 31.3 g/dL (30.0-36.0); Mean Corpuscular Hemoglobin 27.7 pg (28.0-34.0); Mean Corpuscular Volume 88.5 fl (81-99); Mean Platelet Volume 9.7 fL (7.4-10.4); Monocytes # 0.4 10^3/uL (0.2-0.9); Monocytes % 8.3 %; Neutrophils # 3.31 10^3/uL (1.8-7.7); Neutrophils % 62.5 %; Nucleated Red Blood Cells % 0 %; Platelet Count 268 10^3/cmm (130-400); Red Blood Count 4.62 10^6/uL (4.1-5.3); Red Cell Distribution Width 16.7 % (12.1-15.1); White Blood Count 5.3 10^3/uL (4.0-10.0)
[2021-12-16 09:57] LABS: Alanine Aminotransferase 7 U/L (0-33); Albumin Level 3.5 g/dL (3.5-5.2); Alkaline Phosphatase 105 U/L (35-105); Anion Gap 16.3 (5-19); Blood Urea Nitrogen 8 mg/dL (8-23); Calcium 9.3 mg/dL (8.5-10.5); Carbon Dioxide 22 mmol/L (22-29); Chloride 105 mmol/L (98-107); Globulin 3.6 g/dL (1.3-4.6); Glomerular Filtration Rate 85.1 mL/min (90-130); Glucose 92 mg/dL (65-115); Osmolality Calculated 286 mOsm/kg (285-295); Potassium 4.3 mmol/L (3.5-5.1); Sodium 139 mmol/L (136-145); Thyroid Stimulating Hormone 27.84 uIU/mL (0.27-4.20); Total Bilirubin 0.3 mg/dL (0.15-1.2); Total Protein 7.1 g/dL (6.6-8.7)
[2021-12-16 10:10] LABS: Aspartate Amino Transferase 13 U/L (0-32)
[2021-12-16] MEDS: nivolumab 240 MG in sodium chloride 0.9% 250 ML 548 MG IV (10:42)
[2021-12-16 11:20] VITALS: BP 112/76; PULSE 81; RESP 18; TEMP 36.6; O2SAT 98
--- NOTE | 2021-12-22 12:00 | CT_ITS ---
WS: [id number] CT CHEST, ABDOMEN AND PELVIS WITH CONTRAST. HISTORY: restaging; evaluation for possible surgery TECHNIQUE: Contiguous 5 mm axial imaging performed through the chest, abdomen and pelvis with IV cont rast, oral contrast has been provided. Coronal and sagittal reformats chest. Coronal and sagittal ref ormats through the abdomen and pelvis. All CT scans at [facility] use at least one of these d ose optimization techniques: automated exposure control; mA and/or kV adjustment per patient size (in cludes targeted exams where dose is matched to clinical indication); or iterative reconstruction. CONTRAST: Omnipaque 350; 95 mL IV. DLP: 1321.84 mGy.cm COMPARISON: 04/20/[address]: Mild pulmonary hyperexpansion. No pulmonary mass or nodule. No pneumonia. No pericardial or pleural effusion. Stable 9 mm RIGHT hilar lymph node. No increasing adenopathy. Normal size heart. S mall hiatal hernia. Abdomen CT: Too small to characterize hypodensities within the liver. Normal size liver. Normal port al vein. Normal gallbladder. Normal pancreas. No bile duct dilatation. Normal aorta. Large extrarenal pelvis on the RIGHT. No renal mass. 9 mm cyst mid LEFT kidney. No obstruction. LEFT lower quadrant ileostomy. No obstruction of the GI tract. Pelvis CT: New presacral soft tissue mass with presacral soft tissue thickening is inseparable from t he rectum and anus. Soft tissue mass is predominantly fluid-filled with peripheral enhancement adjace nt to the surgical clips at the rectum and intravenous. Contiguous soft tissue mass extends anteriorl y from the anterior rectal wall. This additional mass measuring 5.1 x 4.5 cm and is contiguous with c ircumferential thickening towards the rectum. There are surgical sutures in the presacral space surro unded by increasing soft tissue mass. The fluid-filled component of this presacral region measures 4. 9 x 2.7 cm and extends over a length of 7.2 cm. These findings have progressed since 04/20/2020. Ther e was mild presacral soft tissue thickening on the recent studies. Increase in the lumbar lordosis. 5 mm retrolisthesis of L2. Facet joint arthritis throughout the lumb ar spine. No osteoblastic or osteolytic bone disease appreciated. Known sacral insufficiency fracture with progression since 11/18/2020. Lytic and sclerotic changes throughout the sacrum bilaterally. CT/CT chest abd pel w con* IMPRESSION: 1. Progression of presacral soft tissue cystic mass with peripheral enhancemen t. This is contiguous with the rectum and anus. Circumferential extension aroun d the rectum and anus with additional soft tissue component extending anteriorl y. The cystic presacral component measures 4.9 x 2.7 x 7.2 cm. The lobulated ma ss extending anterior from the rectum measures 5.1 x 4.7 cm. These findings are concerning for progression of metastatic local recurrence. Some of these findi ngs were present on 04/20/2020 but there does appear to be progression and furt her evaluation is warranted. 2. LEFT lower quadrant ileostomy. 3. No metastatic disease to the lungs or liver. No ascites. 4. Progression of known sacral insufficiency fracture.
[2021-12-22] MEDS: iohexol 350 mg/mL 100 mL Btl IV (12:15)
== END 2021-12-29 23:59 | disposition home or self-care (01) ==
LOC: ONCMED 12-28 04:37
PROVIDERS: Internal Medicine Hematology & Oncology; PCP Family Medicine; Visit Provider Nurse Practitioner Family
DX: C20 Malignant neoplasm of rectum (principal)
CPT/HCPCS: 71260; 74177; 80053; 84443; 85025; 96413; 99214; 99215; J7050; J9299

== ENCOUNTER → 2022-01-15 17:02 | Outpatient (BNVA) | payer MEDICARE, MEDICAID, SELFPAY | PROVIDERS: PCP Family Medicine; Visit Provider Registered Nurse Neonatal Intensive Care | DX: N39.0 Urinary tract infection, site not specified (principal) | CPT/HCPCS: 81000 ==

== ENCOUNTER 2022-01-19 10:00 | Oncology outpatient (recurring) (ONCR) | payer MEDICARE, MEDICAID, SELFPAY ==
[2021-12-30 09:10] VITALS: BMI 21.4
[2021-12-30 09:14] LABS: Basophils % 0.7 %; Eosinophils # 0.2 10^3/uL (0.0-0.8); Eosinophils % 2.5 %; Hematocrit 40.5 % (37.0-47.0); Hemoglobin 12.8 g/dL (11.5-15.3); Lymphocytes # 1.1 10^3/uL (0.8-4.8); Lymphocytes % 18.3 %; Mean Corpuscular HGB Conc 31.6 g/dL (30.0-36.0); Mean Corpuscular Hemoglobin 27.9 pg (28.0-34.0); Mean Corpuscular Volume 88.4 fl (81-99); Mean Platelet Volume 9.9 fL (7.4-10.4); Monocytes # 0.5 10^3/uL (0.2-0.9); Neutrophils # 4.23 10^3/uL (1.8-7.7); Neutrophils % 70.2 %; Nucleated Red Blood Cells % 0 %; Platelet Count 230 10^3/cmm (130-400); Red Blood Count 4.58 10^6/uL (4.1-5.3); Red Cell Distribution Width 17.2 % (12.1-15.1)
[2021-12-30 09:59] LABS: Alanine Aminotransferase 10 U/L (0-33); Albumin Level 3.7 g/dL (3.5-5.2); Alkaline Phosphatase 111 U/L (35-105); Anion Gap 14.4 (5-19); Aspartate Amino Transferase 22 U/L (0-32); Blood Urea Nitrogen 9 mg/dL (8-23); Calcium 8.7 mg/dL (8.5-10.5); Carbon Dioxide 26 mmol/L (22-29); Chloride 104 mmol/L (98-107); Glomerular Filtration Rate 101.6 mL/min (90-130); Glucose 102 mg/dL (65-115); Osmolality Calculated 289 mOsm/kg (285-295); Potassium 4.4 mmol/L (3.5-5.1); Sodium 140 mmol/L (136-145); Thyroid Stimulating Hormone 22.83 uIU/mL (0.27-4.20); Total Bilirubin 0.4 mg/dL (0.15-1.2); Total Protein 6.7 g/dL (6.6-8.7)
[2021-12-30] MEDS: sodium chloride 0.9% 250 ML 75 ML IV (11:53)
[2021-12-30] MEDS: nivolumab 240 MG in sodium chloride 0.9% 250 ML 548 MG IV (12:07)
[2021-12-30 12:59] VITALS: BP 125/80; PULSE 69; RESP 16; TEMP 36.8; O2SAT 99
[2022-01-19 10:15] VITALS: BMI 21.2
[2022-01-19 10:35] LABS: Basophils % 0.8 %; Eosinophils # 0.1 10^3/uL (0.0-0.8); Hematocrit 40.9 % (37.0-47.0); Hemoglobin 12.7 g/dL (11.5-15.3); Lymphocytes # 1.3 10^3/uL (0.8-4.8); Lymphocytes % 25.5 %; Mean Corpuscular HGB Conc 31.1 g/dL (30.0-36.0); Mean Corpuscular Volume 90.3 fl (81-99); Mean Platelet Volume 10.5 fL (7.4-10.4); Monocytes # 0.6 10^3/uL (0.2-0.9); Monocytes % 11.4 %; Neutrophils # 3.06 10^3/uL (1.8-7.7); Neutrophils % 60.1 %; Nucleated Red Blood Cells % 0 %; Platelet Count 221 10^3/cmm (130-400); Red Blood Count 4.53 10^6/uL (4.1-5.3); Red Cell Distribution Width 17.7 % (12.1-15.1); White Blood Count 5.1 10^3/uL (4.0-10.0)
[2022-01-19 10:52] LABS: Alanine Aminotransferase 10 U/L (0-33); Albumin Level 3.6 g/dL (3.5-5.2)
[2022-01-19 11:43] LABS: Blood Urea Nitrogen 8 mg/dL (8-23); Calcium 9.2 mg/dL (8.5-10.5); Carbon Dioxide 24 mmol/L (22-29); Creatinine Clr Calc Pharmacy 86.8588; Globulin 3.5 g/dL (1.3-4.6); Glomerular Filtration Rate 84.8 mL/min (90-130); Glucose 90 mg/dL (65-115); Thyroid Stimulating Hormone 4.49 uIU/mL (0.27-4.20); Total Bilirubin 0.3 mg/dL (0.15-1.2); Total Protein 7.1 g/dL (6.6-8.7)
[2022-01-19 11:44] LABS: Aspartate Amino Transferase 21 U/L (0-32); Potassium 4.5 mmol/L (3.5-5.1)
[2022-01-19] MEDS: sodium chloride 0.9% 250 ML 75 ML IV (12:18)
[2022-01-19 12:19] VITALS: RESP 18; O2SAT 99
[2022-01-19] MEDS: HYDROmorphone 1 mg/mL INJ 1 mL IVP (12:19)
[2022-01-19 12:24] LABS: Alkaline Phosphatase 109 U/L (35-105); Anion Gap 16.5 (5-19)
[2022-01-19 12:25] LABS: Chloride 101 mmol/L (98-107); Osmolality Calculated 282 mOsm/kg (285-295); Sodium 137 mmol/L (136-145)
[2022-01-19] MEDS: nivolumab 240 MG in sodium chloride 0.9% 250 ML 548 MG IV (12:56)
[2022-01-19 14:00] VITALS: BP 108/69; PULSE 59; RESP 16; TEMP 36.5; O2SAT 99
[2022-01-19 14:22] LABS: Add Urine Microscopic? YES; Urine Appearance Clear (CLEAR); Urine Color Orange (Yellow)
[2022-01-19 14:23] LABS: Add Urine Culture? No; Bacteria Urine TRACE /hpf; Mucus Urine 2+ /hpf; Squamous Epithelial Cell Urine 0-4 /hpf (0-5); WBC Urine 0-4 /hpf (0-5)
--- NOTE | 2022-01-19 16:18 | PC.NURSE ---
This nurse showed Nathan John NP the patient's UA results. Nathan John NP prescribed Bactrim and sent it to [facility]. THis nurse called the patient to let her know about her results and to let her know that Shirin BRANNON had prescribed Bactrim and if she had any problems or issues to give us call. Patient acknowledged understanding and had no other questions.
== END 2022-01-28 23:59 | disposition home or self-care (01) ==
PROVIDERS: Internal Medicine Hematology & Oncology; PCP Family Medicine; Visit Provider Nurse Practitioner Family
DX: Z51.12 Encounter for antineoplastic immunotherapy (principal); C20 Malignant neoplasm of rectum; R91.1 Solitary pulmonary nodule; C78.7 Secondary malignant neoplasm of liver and intrahepatic bile duct; Z93.3 Colostomy status; Z79.899 Other long term (current) drug therapy; Z87.891 Personal history of nicotine dependence
CPT/HCPCS: 80053; 81001; 84443; 85025; 96375; 96413; 99024; 99214; J1170; J7050; J9299

== ENCOUNTER → 2022-02-02 10:26 | Outpatient (BNVA) | payer MEDICARE, MEDICAID, SELFPAY | PROVIDERS: PCP Family Medicine; Visit Provider Nurse Practitioner | DX: C20 Malignant neoplasm of rectum (principal); C78.5 Secondary malignant neoplasm of large intestine and rectum; C78.6 Secondary malignant neoplasm of retroperitoneum and peritoneum; N13.30 Unspecified hydronephrosis; Z79.899 Other long term (current) drug therapy; Z79.891 Long term (current) use of opiate analgesic; Z87.891 Personal history of nicotine dependence | CPT/HCPCS: 99214 ==

== ENCOUNTER 2022-02-16 08:00 | Oncology outpatient (recurring) (ONCR) | payer MEDICARE, MEDICAID, SELFPAY ==
[2022-02-02 10:48] VITALS: BMI 20.9
[2022-02-02 10:49] LABS: Basophils # 0.1 10^3/uL (0.0-0.1); Basophils % 0.9 %; Eosinophils # 0.1 10^3/uL (0.0-0.8); Eosinophils % 1.3 %; Hematocrit 40.8 % (37.0-47.0); Hemoglobin 13.1 g/dL (11.5-15.3); Lymphocytes # 1.1 10^3/uL (0.8-4.8); Mean Corpuscular HGB Conc 32.1 g/dL (30.0-36.0); Mean Corpuscular Hemoglobin 28.2 pg (28.0-34.0); Mean Corpuscular Volume 87.9 fl (81-99); Monocytes # 0.5 10^3/uL (0.2-0.9); Neutrophils # 3.65 10^3/uL (1.8-7.7); Neutrophils % 67.6 %; Nucleated Red Blood Cells % 0 %; Platelet Count 219 10^3/cmm (130-400); Red Blood Count 4.64 10^6/uL (4.1-5.3); Red Cell Distribution Width 16.1 % (12.1-15.1); White Blood Count 5.4 10^3/uL (4.0-10.0)
[2022-02-02 11:21] LABS: Alanine Aminotransferase 10 U/L (0-33); Albumin Level 3.6 g/dL (3.5-5.2); Alkaline Phosphatase 115 U/L (35-105); Anion Gap 13.5 (5-19); Aspartate Amino Transferase 22 U/L (0-32); Blood Urea Nitrogen 9 mg/dL (8-23); Carbon Dioxide 28 mmol/L (22-29); Chloride 96 mmol/L (98-107); Globulin 3.6 g/dL (1.3-4.6); Glomerular Filtration Rate 101.3 mL/min (90-130); Glucose 98 mg/dL (65-115); Osmolality Calculated 275 mOsm/kg (285-295); Potassium 4.5 mmol/L (3.5-5.1); Sodium 133 mmol/L (136-145); Thyroid Stimulating Hormone 6.78 uIU/mL (0.27-4.20); Total Bilirubin 0.6 mg/dL (0.15-1.2); Total Protein 7.2 g/dL (6.6-8.7)
[2022-02-02] MEDS: sodium chloride 0.9% 250 ML 75 ML IV (14:07)
[2022-02-02] MEDS: nivolumab 240 MG in sodium chloride 0.9% 250 ML 548 MG IV (14:11)
[2022-02-02 15:00] VITALS: BP 97/62; PULSE 58; RESP 18; TEMP 37.1; O2SAT 97
[2022-02-16 08:31] LABS: Basophils # 0.1 10^3/uL (0.0-0.1); Basophils % 0.7 %; Eosinophils # 0.1 10^3/uL (0.0-0.8); Eosinophils % 1.6 %; Hematocrit 38.5 % (37.0-47.0); Hemoglobin 11.9 g/dL (11.5-15.3); Lymphocytes # 1.2 10^3/uL (0.8-4.8); Lymphocytes % 14.6 %; Mean Corpuscular HGB Conc 30.9 g/dL (30.0-36.0); Mean Corpuscular Hemoglobin 27.7 pg (28.0-34.0); Mean Corpuscular Volume 89.7 fl (81-99); Mean Platelet Volume 9.7 fL (7.4-10.4); Monocytes # 0.6 10^3/uL (0.2-0.9); Monocytes % 7.4 %; Neutrophils # 6.28 10^3/uL (1.8-7.7); Neutrophils % 75.3 %; Nucleated Red Blood Cells % 0 %; Platelet Count 260 10^3/cmm (130-400); Red Blood Count 4.29 10^6/uL (4.1-5.3); Red Cell Distribution Width 16.5 % (12.1-15.1); White Blood Count 8.3 10^3/uL (4.0-10.0)
[2022-02-16 09:12] LABS: Alanine Aminotransferase 9 U/L (0-33); Albumin Level 3.2 g/dL (3.5-5.2); Alkaline Phosphatase 102 U/L (35-105); Anion Gap 13.1 (5-19); Aspartate Amino Transferase 18 U/L (0-32); Blood Urea Nitrogen 9 mg/dL (8-23); Calcium 8.9 mg/dL (8.5-10.5); Carbon Dioxide 24 mmol/L (22-29); Chloride 106 mmol/L (98-107); Globulin 3.5 g/dL (1.3-4.6); Glomerular Filtration Rate 101.3 mL/min (90-130); Glucose 103 mg/dL (65-115); Osmolality Calculated 287 mOsm/kg (285-295); Potassium 4.1 mmol/L (3.5-5.1); Sodium 139 mmol/L (136-145); Thyroid Stimulating Hormone 4.65 uIU/mL (0.27-4.20); Total Bilirubin 0.2 mg/dL (0.15-1.2); Total Protein 6.7 g/dL (6.6-8.7)
[2022-02-16] MEDS: nivolumab 240 MG in sodium chloride 0.9% 250 ML 548 MG IV (10:33)
== END 2022-02-28 23:59 | disposition home or self-care (01) ==
PROVIDERS: Internal Medicine Hematology & Oncology; Nurse Practitioner; PCP Family Medicine; Visit Provider Nurse Practitioner Family
DX: Z51.12 Encounter for antineoplastic immunotherapy (principal); C20 Malignant neoplasm of rectum; Z93.3 Colostomy status; E03.2 Hypothyroidism due to medicaments and other exogenous substances; T45.1X5A Adverse effect of antineoplastic and immunosuppressive drugs, initial encounter; Z79.899 Other long term (current) drug therapy; Z87.891 Personal history of nicotine dependence
CPT/HCPCS: 80053; 84443; 85025; 96413; 99214; J7050; J9299

== ENCOUNTER 2022-03-21 14:30 | Oncology outpatient (recurring) (ONCR) | payer MEDICARE, MEDICAID, SELFPAY ==
[2022-03-02 08:49] LABS: Basophils # 0.1 10^3/uL (0.0-0.1); Eosinophils # 0.2 10^3/uL (0.0-0.8); Eosinophils % 2.1 %; Hematocrit 42.5 % (37.0-47.0); Hemoglobin 13.1 g/dL (11.5-15.3); Lymphocytes # 1.3 10^3/uL (0.8-4.8); Mean Corpuscular HGB Conc 30.8 g/dL (30.0-36.0); Mean Corpuscular Hemoglobin 27.7 pg (28.0-34.0); Mean Corpuscular Volume 89.9 fl (81-99); Mean Platelet Volume 9.7 fL (7.4-10.4); Monocytes # 0.5 10^3/uL (0.2-0.9); Monocytes % 6.8 %; Neutrophils # 4.96 10^3/uL (1.8-7.7); Neutrophils % 70.8 %; Nucleated Red Blood Cells % 0 %; Platelet Count 304 10^3/cmm (130-400); Red Blood Count 4.73 10^6/uL (4.1-5.3); Red Cell Distribution Width 17.8 % (12.1-15.1)
[2022-03-02 09:18] LABS: Alanine Aminotransferase 13 U/L (0-33); Albumin Level 3.6 g/dL (3.5-5.2); Alkaline Phosphatase 89 U/L (35-105); Anion Gap 14.8 (5-19); Aspartate Amino Transferase 21 U/L (0-32); Blood Urea Nitrogen 13 mg/dL (8-23); Calcium 9.3 mg/dL (8.5-10.5); Carbon Dioxide 24 mmol/L (22-29); Chloride 106 mmol/L (98-107); Globulin 3.3 g/dL (1.3-4.6); Glomerular Filtration Rate 101.3 mL/min (90-130); Glucose 93 mg/dL (65-115); Osmolality Calculated 292 mOsm/kg (285-295); Potassium 3.8 mmol/L (3.5-5.1); Sodium 141 mmol/L (136-145); Thyroid Stimulating Hormone 1.29 uIU/mL (0.27-4.20); Total Bilirubin 0.4 mg/dL (0.15-1.2); Total Protein 6.9 g/dL (6.6-8.7)
[2022-03-02] MEDS: sodium chloride 0.9% 250 ML 75 ML IV (10:22)
[2022-03-02] MEDS: nivolumab 240 MG in sodium chloride 0.9% 250 ML 548 MG IV (10:29)
[2022-03-02 11:26] VITALS: BP 122/77; PULSE 57; RESP 16; TEMP 36.6; O2SAT 97
[2022-03-02 11:27] VITALS: BP 122/77; PULSE 57; RESP 16; TEMP 36.6; O2SAT 98
[2022-03-16 09:03] LABS: Basophils # 0.1 10^3/uL (0.0-0.1); Basophils % 0.6 %; Eosinophils # 0.2 10^3/uL (0.0-0.8); Eosinophils % 2.9 %; Hematocrit 45.5 % (37.0-47.0); Hemoglobin 14.2 g/dL (11.5-15.3); Lymphocytes # 1.3 10^3/uL (0.8-4.8); Lymphocytes % 15.4 %; Mean Corpuscular HGB Conc 31.2 g/dL (30.0-36.0); Mean Corpuscular Hemoglobin 28.5 pg (28.0-34.0); Mean Corpuscular Volume 91.2 fl (81-99); Mean Platelet Volume 10.1 fL (7.4-10.4); Monocytes # 0.8 10^3/uL (0.2-0.9); Monocytes % 9.6 %; Neutrophils # 5.85 10^3/uL (1.8-7.7); Neutrophils % 71.1 %; Nucleated Red Blood Cells % 0 %; Platelet Count 209 10^3/cmm (130-400); Red Blood Count 4.99 10^6/uL (4.1-5.3); Red Cell Distribution Width 16.8 % (12.1-15.1); White Blood Count 8.2 10^3/uL (4.0-10.0)
[2022-03-16 09:33] LABS: Alanine Aminotransferase 11 U/L (0-33); Albumin Level 3.7 g/dL (3.5-5.2); Alkaline Phosphatase 110 U/L (35-105); Anion Gap 16.6 (5-19); Aspartate Amino Transferase 17 U/L (0-32); Blood Urea Nitrogen 14 mg/dL (8-23); Calcium 9.4 mg/dL (8.5-10.5); Carbon Dioxide 24 mmol/L (22-29); Chloride 101 mmol/L (98-107); Globulin 3.5 g/dL (1.3-4.6); Glomerular Filtration Rate 84.8 mL/min (90-130); Glucose 102 mg/dL (65-115); Osmolality Calculated 287 mOsm/kg (285-295); Potassium 3.6 mmol/L (3.5-5.1); Sodium 138 mmol/L (136-145); Thyroid Stimulating Hormone 3.13 uIU/mL (0.27-4.20); Total Bilirubin 0.3 mg/dL (0.15-1.2); Total Protein 7.2 g/dL (6.6-8.7)
[2022-03-16] MEDS: sodium chloride 0.9% 500 ML IV (11:06)
[2022-03-16] MEDS: palonosetron 0.25 mg/5 mL SDV IVP (11:10)
[2022-03-16] MEDS: dexamethasone 10 mg/mL INJ 5 MG IVP (11:14)
[2022-03-21 14:52] VITALS: BP 106/67; PULSE 68; RESP 16; TEMP 36.4; O2SAT 98
[2022-03-21] MEDS: nivolumab 240 MG in sodium chloride 0.9% 250 ML 548 MG IV (15:06)
== END 2022-03-30 23:59 | disposition home or self-care (01) ==
PROVIDERS: Internal Medicine Hematology & Oncology; PCP Family Medicine; Visit Provider Nurse Practitioner Family
DX: U07.1 COVID-19 (principal); Z51.12 Encounter for antineoplastic immunotherapy; C20 Malignant neoplasm of rectum
CPT/HCPCS: 80053; 84443; 85025; 96365; 96375; 96413; 99214; J1100; J2469; J7040; J7050; J9299

== ENCOUNTER 2022-04-12 11:38 | Emergency (ER) | payer MEDICARE, MEDICAID, SELFPAY ==
[2022-04-12] VITALS (8 sets, daily range): BP systolic 92–144; BP diastolic 62–81; PULSE 62–91; RESP 16–17; TEMP 36.7; O2SAT 96–98; BMI 20.7
[2022-04-12 13:02] LABS: Basophils % 0.6 %; Eosinophils # 0.2 10^3/uL (0.0-0.8); Eosinophils % 2.7 %; Hematocrit 43.7 % (37.0-47.0); Hemoglobin 13.7 g/dL (11.5-15.3); Lymphocytes # 1.2 10^3/uL (0.8-4.8); Lymphocytes % 17.5 %; Mean Corpuscular HGB Conc 31.4 g/dL (30.0-36.0); Mean Corpuscular Hemoglobin 28.2 pg (28.0-34.0); Mean Corpuscular Volume 90.1 fl (81-99); Mean Platelet Volume 9.3 fL (7.4-10.4); Monocytes # 0.5 10^3/uL (0.2-0.9); Monocytes % 8.2 %; Neutrophils # 4.59 10^3/uL (1.8-7.7); Neutrophils % 69.9 %; Nucleated Red Blood Cells % 0 %; Platelet Count 247 10^3/cmm (130-400); Red Blood Count 4.85 10^6/uL (4.1-5.3); Red Cell Distribution Width 15.4 % (12.1-15.1); White Blood Count 6.6 10^3/uL (4.0-10.0)
[2022-04-12 13:17] LABS: Alanine Aminotransferase 8 U/L (0-33); Albumin Level 3.8 g/dL (3.5-5.2); Alkaline Phosphatase 114 U/L (35-105); Anion Gap 12.4 (5-19); Aspartate Amino Transferase 14 U/L (0-32); Blood Urea Nitrogen 11 mg/dL (8-23); Calcium 9.2 mg/dL (8.5-10.5); Carbon Dioxide 30 mmol/L (22-29); Chloride 105 mmol/L (98-107); Globulin 3.2 g/dL (1.3-4.6); Glomerular Filtration Rate 84.8 mL/min (90-130); Glucose 87 mg/dL (65-115); Lipase 10 U/L (13-60); Osmolality Calculated 295 mOsm/kg (285-295); Potassium 4.4 mmol/L (3.5-5.1); Sodium 143 mmol/L (136-145); Total Bilirubin 0.2 mg/dL (0.15-1.2)
[2022-04-12 13:18] LABS: Lactic Sepsis W/Reflex 0.7 mmol/L (0.5-2.2)
--- NOTE | 2022-04-12 13:31 | ED_ITS ---
HPI - Female Genitourinary General: Chief complaint: Urogenital-Female Stated complaint: abd pain Time Seen by Provider: 04/12/22 13:31 History of Present Illness: Ms. Brice is a 62-year-old lady with complex past medical history including presacral fluid collection, suspected cancer, hydronephrosis, ostomy presenting to the emergency department with urinary difficulty. She reports having difficulty mostly requiring position changes including standing urinating since a few days ago but has now progressed to the point that she has not had urine output for over 24 hours. Also endorses increased pain and rectal drainage. No signs of systemic illness. Intensity symptoms is moderate. Course has worsened. She has had similar episodes in the past associated with recurrence of fluid collection that has previously been drained. She follows with a physician in [place] and has pending operative plans however there is no firm dates that she is waiting on some blood analysis work regarding recurrence of cancer. 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 Maloney [place] Recurrent UTI Surgical History H/O colectomy Diverting colostomy placement History of abdominal surgery Drain placed to drain abscess for a pre sacral fluid collection - [facility]. 2021 History of appendectomy History of bilateral tubal ligation History of bladder surgery S/P ureteral stent placement Placed in August 2019 and removed in September 2019 secondary to severe intolerable discomfort. Sounds like metallic stents. Family History Family/Other No problems noted. Daughter Clotting disorder Father Lung disease Other CAD (coronary artery disease) Dementia Denies family history of Diabetes Hyperlipidemia Psychiatric illness Chronic kidney disease (CKD) Suicide Anesthesia complication Bleeding disorder Cancer Hypertension Stroke Social History Smoking and tobacco status: former smoker (smoked x 20+ years) Alcohol intake: current Alcohol intake frequency: holidays/special occasions only Alcohol type: wine Household members: family Housing: House Physical Exam Const: COMMON NORMALS: alert GENERAL APPEARANCE: cooperative and well developed HENMT: COMMON NORMALS: normocephalic and atraumatic HEAD & SCALP: n ormocephalic and atraumatic Eye: COMMON NORMALS: conjunctivae normal CONJUNCTIVA: Yes conjunctivae normal SCLERA: sclerae normal Neck/C-Spine: COMMON NORMALS: supple GENERAL: Yes trachea midline Resp: COMMON NORMALS: normal respiratory effort EFFORT & INSPECTION: Yes able to speak in complete sentences Cardio: COMMON NORMALS: regular rate and regular rhythm RATE: regular rate RHYTHM: regular rhythm GI: COMMON NORMALS: Soft to palpation PALPATION: Yes Soft to palpation and No Tenderness to palpation present (GI) Extremity: GENERAL: Yes normal exam except as noted and No edema Neuro: COMMON NORMALS: moves all extremities SENSORIUM/ORIENTATION: Yes alert and No Orientation impaired Psych: COMMON NORMALS: mental status grossly normal and Normal thought process present THOUGHT PROCESS: Normal thought process present Course Vital Signs: Vital signs: Vital Signs Temperature 98.1 F 04/12/22 12:08 Pulse Rate 91 04/12/22 17:34 Respiratory Rate 16 04/12/22 17:34 Blood Pressure 113/64 04/12/22 17:34 Pulse Oximetry 98 04/12/22 17:34 Oxygen Delivery Me thod 04/12/22 12:08 MDM - Female Medical Decision Making 62-year-old lady with complex history presenting to the emergency department with urinary symptoms and increased rectal pain/drainage. Exam as above. Labs with no leukocytosis, hemoglobin is normal. Metabolic panel without signi ficant derangement requiring invention. There is no evidence of urinary tract infection. CT reveals recurrence of presacral fluid collection. Incidental findings discussed. Catheter placed in the case was discussed with patient's team at outside facility. Do not feel that patient requires emergent transfer or inpatient management at this time however she will have close follow-up for proximal recurrent percutaneous drainage by IR. Most likely etiology of patient's symptoms is recurrent fluid collection with either mechanical displacement of urethra causing urinary symptoms or perhaps mild local inflammatory response. The results of ED evaluation were discussed with the patient including prescriptions and/or symptomatic cares (if applicable) including appropriate and responsible use, followup plan, and return precautions. The patient verbalized understanding and felt safe for discharge. Medical Records I reviewed the patient's medical records. Lab Data I reviewed the patient's lab results. 04/12/22 12:43 04/12/22 12:43 Radiology Impressions Abdomen/Pelvis CT 04/12/22 14:59 IMPRESSION: 1. Comparison CT 12/22/2021. 2. Persistent presacral fluid collection with enhancing rim suspicious for an abscess. The size measurement is similar to prior exam as described above. Unclear if this communicates with the regional bowel lumen. Follow-up imaging with high-density luminal bowel contrast may be obtained if clinically indicated. Another tiny tubular fluid density is noted on the left superior to it as described above. No other fluid collection/abscess. 3. Left mid abdominal ileostomy again noted with no obvious regional ileostomy complication. No evidence of bowel obstruction, or pneumatosis. 4. Probable nonocclusive DVT versus mixing artifact in the left femoral venous segments. Ultrasound/duplex imaging correlation should be obtained. 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 5. Minimal intrahepatic biliary prominence with no significant distal CBD dilatation or obvious obstruction. However clinical/LFT correlation should be obtained. 6. Osseous and other nonacute findings as above. ADDENDUM: 04/12/[address] Zamorano had received the report according to OP support at about 5:08 p.m. Eastern time. Laboratory Results WBC 6.6 10^3/uL (4.0-10.0) 04/12/22 12:43 RBC 4.85 10^6/uL (4.1-5.3) 04/12/22 12:43 Hgb 13.7 g/dL (11.5-15.3) 04/12/22 12:43 Hct 43.7 % (37.0-47.0) 04/12/22 12:43 MCV 90.1 fl (81-99) 04/12/22 12:43 MCH 28.2 pg (28.0-34.0) 04/12/22 12:43 MCHC 31.4 g/dL (30.0-36.0) 04/12/22 12:43 RDW 15.4 % (12.1-15.1) H 04/12/22 12:43 Plt Count 247 10^3/cmm (130-400) 04/12/22 12:43 MPV 9.3 fL (7.4-10.4) 04/12/22 12:43 Neut % (Auto) 69.9 % 04/12/22 12:43 Lymph % (Auto) 17.5 % 04/12/22 12:43 Barnes % (Auto) 8.2 % 04/12/22 12:43 Eos % (Auto) 2.7 % 04/12/22 12:43 Baso % (Auto) 0.6 % 04/12/22 12:43 Neut # (Auto) 4.59 10^3/uL (1.8-7.7) 04/12/22 12:43 Lymph # (Auto) 1.2 10^3/uL (0.8-4.8) 04/12/22 12:43 Barnes # (Auto) 0.5 10^3/uL (0.2-0.9) 04/12/22 12:43 Eos # (Auto) 0.2 10^3/uL (0.0-0.8) 04/12/22 12:43 Baso # (Auto) 0.0 10^3/uL (0.0-0.1) 04/12/22 12:43 Nucleated RBC % (auto) 0 % 04/12/22 12:43 Nucleated RBCs # 0.0 /100WBC 04/12/22 12:43 Sodium 143 mmol/L (136-145) 04/12/22 12:43 Potassium 4.4 mmol/L (3.5-5.1) 04/12/22 12:43 Chloride 105 mmol/L (98-107) 04/12/22 12:43 Carbon Dioxide 30 mmol/L (22-29) H 04/12/22 12:43 Anion Gap 12.4 (5-19) 04/12/22 12:43 BUN 11 mg/dL (8-23) 04/12/22 12:43 Creatinine 0.7 mg/dL (0.5-0.9) 04/12/22 12:43 GFR Calculation 84.8 mL/min (90-130) L 04/12/22 12:43 Glucose 87 mg/dL (65-115) 04/12/22 12:43 Calculated Osmolality 295 mOsm/kg (285-295) 04/12/22 12:43 Lactic Acid 0.7 mmol/L (0.5-2.2) 04/12/22 12:43 Calcium 9.2 mg/dL (8.5-10.5) 04/12/22 12:43 Total Bilirubin 0.2 mg/dL (0.15-1.2) 04/12/22 12:43 AST 14 U/L (0-32) 04/12/22 12:43 ALT 8 U/L (0-33) 04/12/22 12:43 Alkaline Phosphatase 114 U/L (35-105) H 04/12/22 12:43 Total Protein 7.0 g/dL (6.6-8.7) 04/12/22 12:43 Albumin 3.8 g/dL (3.5-5.2) 04/12/22 12:43 Globulin 3.2 g/dL (1.3-4.6) 04/12/22 12:43 Lipase 10 U/L (13-60) L 04/12/22 12:43 Urine Color Yellow (Yellow) 04/12/22 14:14 Urine Appearance Clear (CLEAR) 04/12/22 14:14 Urine pH 5 (5-7) 04/12/22 14:14 Ur Specific [place] 1.015 (1.005-1.030) 04/12/22 14:14 Urine Protein Trace (Negative) 04/12/22 14:14 Urine Glucose (UA) Norm (Normal) 04/12/22 14:14 Urine Ketones 1+ (Negative) H 04/12/22 14:14 Urine Blood Neg (Negative) 04/12/22 14:14 Urine Nitrate Negative (Negative) 04/12/22 14:14 Urine Bilirubin Neg (Negative) 04/12/22 14:14 Urine Urobilinogen Norm mg/dL (Negative) 04/12/22 14:14 Ur Leukocyte Esterase Negative (Negative) 04/12/22 14:14 Urine RBC None /hpf (0-2) 04/12/22 14:14 Urine WBC None /hpf (0-5) 04/12/22 14:14 Ur Squamous Epith Cells 0-4 /hpf (0-5) H 04/12/22 14:14 Amorphous Sediment Not Reportable 04/12/22 14:14 Urine Bacteria Trace /hpf (NONE) 04/12/22 14:14 Urine Mucus 3+ /hpf 04/12/22 14:14 Discharge Plan Discharge Patient Disposition: Home Clinical Impression: Acute urinary retention, Abdominal abscess Condition: Stable Prescriptions: New Flomax 0.4 mg capsule 0.4 mg PO DAILY Qty: 30 0RF No Action Stivarga 40 mg tablet 80 mg .ROUTE DAILY 21 Days Qty: 42 0RF Rx Instructions: 80 mg daily; Take for 21 days, off 7 days, out of a 28 day cycle. Repeat. morphine 15 mg tablet extended release See Rx Instructions PO Q12H 30 Days Qty: 90 0RF Rx Instructions: 30mg every AM, 30mg every PM orally every 12 hours; oxycodone-acetaminophen [Percocet] 10-325 mg tablet 1 - 2 tab PO Q4H PRN (Reason: breakthrough pain) 30 Days Qty: 90 0RF multivitamin Tablet 1 tab PO DAILY@07 ondansetron 8 mg tablet,disintegrating 8 mg PO Q6H PRN (Reason: Nausea And Vomiting) promethazine 25 mg tablet 25 mg PO Q6H PRN (Reason: nausea and vomiting) Qty: 20 0RF levothyroxine 100 mcg tablet 100 mcg PO DAILY nivolumab 240 mg/24 mL solution 240 mg IV Q14D Vitamin D3 25 mcg (1,000 unit) Capsule 25 mcg PO DAILY escitalopram oxalate 10 mg tablet 10 mg PO DAILY Discharge Orders: Discharge ED (Routine); Ordered 04/12/22 Ordered By: Americo Zamorano Referrals: Ciera Jeff MD [Primary Care Provider] - Discharge Diet: Usual diet Discharge Activity: Increase activity as tolerated Patient Instructions: Mtz Catheter Placement and Care (ED), How to Change a Catheter Drainage Bag (DC), Opioid Safety, Pain Management Activity Restrictions/Additional Instructions: Thank you for visiting the emergency department. You were seen and evaluated for urinary retention and pain. The most likely cause of your symptoms is related to recurrence of your presacral abscess. In discussion with your treatment team at [place] it is appropriate to have outpatient management at this time. You should be contacted either tomorrow or the next day regarding follow-up. For pain we will increase your extended release morphine from 15 mg twice daily to 30 mg in the morning and 15 mg at night. Watch for side effects and to use opioids cautiously. You may continue to take your other medications. I will also prescribe antispasmodic Pyridium, this may discolor your urine. Please follow-up with your oncologist as well. Please return to the emergency department for uncontrolled pain, catheter no longer draining, fevers, nausea, vomiting, overall feeling worse, or anything else that you are concerned about a feel needs emergency department evaluation. Coding Level of Care Code ED Archives Technician for Michael Lilly
[2022-04-12 14:55] LABS: Add Urine Microscopic? YES; Bilirubin Urine Neg (Negative); Blood Urine Neg (Negative); Glucose Urine UA Norm (Normal); Ketones Urine 1+ (Negative); Leukocyte Esterase Urine Negative (Negative); Nitrate Urine Negative (Negative); Protein Urine Trace (Negative); Specific Gravity, Urine 1.015 (1.005-1.030); Urine Appearance Clear (CLEAR); Urine Color Yellow (Yellow); Urobilinogen Urine Norm (Negative); pH Urine 5 (5-7)
[2022-04-12 14:56] LABS: Squamous Epithelial Cell Urine 0-4 /hpf (0-5)
[2022-04-12 14:57] LABS: Add Urine Culture? No; Bacteria Urine TRACE /hpf; Mucus Urine 3+ /hpf
--- NOTE | 2022-04-12 14:59 | CTR_ITS ---
PROCEDURE INFORMATION: Exam: CT Abdomen And Pelvis With Contrast Exam date and time: 04/12/2022 3:24 PM Age: 62 years old Clinical indication: Abdominal pain; Localized; Lower; Prior surgery; Surgery type: Tubal, bladder, ureteral stent; Patient HX: HX of rectal cancer; Additional info: Urinary retention, HX presacral abscess, increased pain/drai TECHNIQUE: Imaging protocol: Computed tomography of the abdomen and pelvis with contrast. Radiation optimization: All CT scans at this facility use at least one of these dose optimization techniques: automated exposure control; mA and/or kV adjustment per patient size (includes targeted exams where dose is matched to clinical indication); or iterative reconstruction. Contrast material: OMNI 350; Contrast volume: 100 ml; Contrast route: INTRAVENOUS (IV); COMPARISON: CT chest abd pel w con* 12/22/2021 12:10 PM RADIATION DOSE METRICS: Total DLP (mGy-cm): 362.19 FINDINGS: Liver: Liver normal in size without cirrhosis. A few punctate hypodense foci are noted within the liver measuring 1-3 mm, too small to characterize and unchanged. No large suspicious lesions are otherwise identified. Gallbladder and bile ducts: There is minimal intrahepatic biliary prominence. The proximal CBD is also slightly prominent at 8-9 mm but demonstrates normal gradual distal tapering. Pancreas: No significant pancreatic ductal dilatation. Spleen: Normal. No splenomegaly. Adrenal glands: Normal. No mass. Kidneys and ureters: No obstructing calculus. No hydronephrosis. Stomach and bowel: Proximal duodenal diverticulum measuring about 1.9 by 1.4 cm. Another small duodenal diverticulum may also be present more distally measuring about 0.8 by 1.5 cm. Again seen is left mid abdominal ileostomy with no obvious regional ostomy complication. No details of prior bowel surgery was provided however there is partially visualized distal rectal/anal segment with high-density sutures in the mid rectal region. Again seen is a discrete low-density collection with enhancing rim in the presacral space suspicious for presacral/perirectal abscess, measuring about 6.4 x 3.3 cm cross-section and 7-8 cm craniocaudad, versus 5.8 by 3 cm cross-section and 7-8 cm craniocaudad, using similar measuring methods. Unclear if this collection communicates with the bowel lumen however there is no bowel obstruction or pneumatosis. Another low-density/elliptical fluid focus is noted in the right iliac region more anteriorly and superiorly, measuring about 2.1 x 0.8 cm, series 4, image 60, nonspecific and may represent small fluid collection, hydrosalpinx or low-density lymph node. There is no thick enhancing rim or acute regional inflammatory response. Appendix: No evidence of appendicitis. Intraperitoneal space: No free air or abdominopelvic ascites. Vasculature: There is hypodensity within the lumen of left upper femoral and left common femoral vein suggesting nonocclusive DVT. Less likely this is mixing artifact. Correlation with ultrasound duplex imaging should be considered. Normal left iliac vein segments are not visualized and may be related to chronic occlusion. Multiple small venous collaterals are noted in the left pelvic/adnexal region giving rise to slightly prominent left gonadal vein. Lymph nodes: See Stomach and bowel finding. Urinary bladder: Nondistended urinary bladder, containing Mtz balloon and small amount of luminal air. Reproductive: Previous exam described a lobulated mass anterior to the rectum however this appears to be the uterus. No history of hysterectomy was provided. No adnexal region masses. Bones/joints: Multilevel vertebral disc degeneration and endplate osteophytes. No acute osseous findings otherwise. Heterogeneous trabecular pattern throughout the sacrum with chronic right sacral insufficiency fracture with no significant change. A left-sided chronic fracture/insufficiency fracture is also be present with relatively stable appearance. No acute osseous findings are otherwise identified. Soft tissues: No acute findings. CT/CT abdomen pelvis w con* [id number] IMPRESSION: 1. Comparison CT 12/22/2021. 2. Persistent presacral fluid collection with enhancing rim suspicious for an abscess. The size measurement is similar to prior exam as described above. Unclear if this communicates with the regional bowel lumen. Follow-up imaging with high-density luminal bowel contrast may be obtained if clinically indicated. Another tiny tubular fluid density is noted on the left superior to it as described above. No other fluid collection/abscess. 3. Left mid abdominal ileostomy again noted with no obvious regional ileostomy complication. No evidence of bowel obstruction, or pneumatosis. 4. Probable nonocclusive DVT versus mixing artifact in the left femoral venous segments. Ultrasound/duplex imaging correlation should be obtained. 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 5. Minimal intrahepatic biliary prominence with no significant distal CBD dilatation or obvious obstruction. However clinical/LFT correlation should be obtained. 6. Osseous and other nonacute findings as above.
[2022-04-12] MEDS: iohexol 350 mg/mL 500 mL Btl (per mL) IV (15:29)
[2022-04-12] MEDS: HYDROmorphone 1 mg/mL INJ 1 mL 0.5 MG IVP (15:41)
[2022-04-12] MEDS: sodium chloride 0.9% 1,000 ML 999 ML IV (15:41)
[2022-04-12] MEDS: ondansetron 2 mg/ML SDV 2 mL 4 MG IVP (15:41)
[2022-04-12] MEDS: phenazopyridine 100 mg Tablet PO (17:08)
== END 2022-04-12 17:25 | disposition home or self-care (01) ==
PROVIDERS: Emergency Provider Emergency Medicine; PCP Family Medicine
DX: R33.9 Retention of urine, unspecified (principal); K65.1 Peritoneal abscess; Z85.048 Personal history of other malignant neoplasm of rectum, rectosigmoid junction, and anus; Z87.440 Personal history of urinary (tract) infections; Z87.891 Personal history of nicotine dependence
CPT/HCPCS: 51702; 51798; 74177; 80053; 81001; 83605; 83690; 85025; 96361; 96374; 96375; 99285; J1170; J2405; J7030; Q9967

== ENCOUNTER 2022-04-26 09:00 | Oncology outpatient (recurring) (ONCR) | payer MEDICARE, MEDICAID, SELFPAY ==
[2022-04-04 08:21] LABS: Basophils # 0.1 10^3/uL (0.0-0.1); Basophils % 0.8 %; Eosinophils # 0.3 10^3/uL (0.0-0.8); Eosinophils % 4.3 %; Hematocrit 42.3 % (37.0-47.0); Hemoglobin 13.6 g/dL (11.5-15.3); Lymphocytes # 1.2 10^3/uL (0.8-4.8); Lymphocytes % 19.6 %; Mean Corpuscular HGB Conc 32.2 g/dL (30.0-36.0); Mean Corpuscular Hemoglobin 28.8 pg (28.0-34.0); Mean Corpuscular Volume 89.6 fl (81-99); Mean Platelet Volume 9.5 fL (7.4-10.4); Monocytes # 0.7 10^3/uL (0.2-0.9); Monocytes % 10.8 %; Neutrophils # 4.02 10^3/uL (1.8-7.7); Neutrophils % 64.2 %; Nucleated Red Blood Cells % 0 %; Platelet Count 223 10^3/cmm (130-400); Red Blood Count 4.72 10^6/uL (4.1-5.3); Red Cell Distribution Width 15.9 % (12.1-15.1); White Blood Count 6.3 10^3/uL (4.0-10.0)
[2022-04-04 08:47] LABS: Alanine Aminotransferase 8 U/L (0-33); Albumin Level 3.5 g/dL (3.5-5.2); Alkaline Phosphatase 113 U/L (35-105); Aspartate Amino Transferase 15 U/L (0-32); Blood Urea Nitrogen 10 mg/dL (8-23); Calcium 9.2 mg/dL (8.5-10.5); Carbon Dioxide 24 mmol/L (22-29); Chloride 99 mmol/L (98-107); Globulin 3.7 g/dL (1.3-4.6); Glomerular Filtration Rate 84.8 mL/min (90-130); Glucose 103 mg/dL (65-115); Osmolality Calculated 271 mOsm/kg (285-295); Sodium 131 mmol/L (136-145); Total Bilirubin 0.5 mg/dL (0.15-1.2); Total Protein 7.2 g/dL (6.6-8.7)
[2022-04-04 08:48] LABS: Thyroid Stimulating Hormone 1.44 uIU/mL (0.27-4.20)
[2022-04-04] MEDS: nivolumab 240 MG in sodium chloride 0.9% 250 ML 548 MG IV (10:44)
[2022-04-04 10:50] VITALS: BP 127/60; PULSE 72; RESP 18; TEMP 36.6; O2SAT 96
[2022-04-04 11:29] VITALS: BP 104/65; PULSE 68; RESP 18; TEMP 36.7; O2SAT 98
[2022-04-18 09:02] LABS: Basophils # 0.1 10^3/uL (0.0-0.1); Basophils % 0.7 %; Eosinophils # 0.3 10^3/uL (0.0-0.8); Eosinophils % 3.7 %; Hematocrit 40.8 % (37.0-47.0); Hemoglobin 12.8 g/dL (11.5-15.3); Lymphocytes # 1.6 10^3/uL (0.8-4.8); Lymphocytes % 19.1 %; Mean Corpuscular HGB Conc 31.4 g/dL (30.0-36.0); Mean Corpuscular Hemoglobin 28.1 pg (28.0-34.0); Mean Corpuscular Volume 89.7 fl (81-99); Mean Platelet Volume 9.4 fL (7.4-10.4); Monocytes # 0.7 10^3/uL (0.2-0.9); Monocytes % 7.9 %; Neutrophils # 5.58 10^3/uL (1.8-7.7); Neutrophils % 68.1 %; Nucleated Red Blood Cells % 0 %; Platelet Count 294 10^3/cmm (130-400); Red Blood Count 4.55 10^6/uL (4.1-5.3); Red Cell Distribution Width 15.9 % (12.1-15.1); White Blood Count 8.2 10^3/uL (4.0-10.0)
[2022-04-18 09:35] LABS: Alanine Aminotransferase < 5 U/L (0-33); Albumin Level 3.5 g/dL (3.5-5.2); Alkaline Phosphatase 100 U/L (35-105); Anion Gap 16.8 (5-19); Aspartate Amino Transferase 14 U/L (0-32); Blood Urea Nitrogen 12 mg/dL (8-23); Carbon Dioxide 23 mmol/L (22-29); Chloride 104 mmol/L (98-107); Globulin 3.3 g/dL (1.3-4.6); Glomerular Filtration Rate 84.8 mL/min (90-130); Glucose 103 mg/dL (65-115); Osmolality Calculated 290 mOsm/kg (285-295); Potassium 3.8 mmol/L (3.5-5.1); Sodium 140 mmol/L (136-145); Thyroid Stimulating Hormone 1.42 uIU/mL (0.27-4.20); Total Bilirubin 0.2 mg/dL (0.15-1.2); Total Protein 6.8 g/dL (6.6-8.7)
[2022-04-26] MEDS: nivolumab 240 MG in sodium chloride 0.9% 250 ML 548 MG IV (09:21)
[2022-04-26 10:29] VITALS: BP 112/65; PULSE 70; RESP 16; TEMP 36.4; O2SAT 97
== END 2022-04-30 23:59 | disposition home or self-care (01) ==
PROVIDERS: Internal Medicine Hematology & Oncology; Nurse Practitioner; PCP Family Medicine; Visit Provider Nurse Practitioner Family
DX: Z51.12 Encounter for antineoplastic immunotherapy (principal); C20 Malignant neoplasm of rectum; Z79.899 Other long term (current) drug therapy
CPT/HCPCS: 80053; 84443; 85025; 96413; 96523; 99214; J7050; J9299

== ENCOUNTER 2022-05-24 08:30 | Oncology outpatient (recurring) (ONCR) | payer MEDICARE, MEDICAID, SELFPAY ==
[2022-05-10 09:42] LABS: Basophils # 0.1 10^3/uL (0.0-0.1); Basophils % 1.3 %; Eosinophils # 0.2 10^3/uL (0.0-0.8); Eosinophils % 3.1 %; Hematocrit 33.1 % (37.0-47.0); Hemoglobin 10.3 g/dL (11.5-15.3); Lymphocytes # 0.9 10^3/uL (0.8-4.8); Lymphocytes % 17.1 %; Mean Corpuscular HGB Conc 31.1 g/dL (30.0-36.0); Mean Corpuscular Volume 86.9 fl (81-99); Mean Platelet Volume 10.3 fL (7.4-10.4); Monocytes # 0.4 10^3/uL (0.2-0.9); Neutrophils # 3.87 10^3/uL (1.8-7.7); Neutrophils % 71.3 %; Nucleated Red Blood Cells % 0 %; Platelet Count 144 10^3/cmm (130-400); Red Blood Count 3.81 10^6/uL (4.1-5.3); Red Cell Distribution Width 17.2 % (12.1-15.1); White Blood Count 5.4 10^3/uL (4.0-10.0)
[2022-05-10 10:17] LABS: Alanine Aminotransferase 7 U/L (0-33); Albumin Level 3.3 g/dL (3.5-5.2); Alkaline Phosphatase 93 U/L (35-105); Anion Gap 13.3 (5-19); Aspartate Amino Transferase 14 U/L (0-32); Blood Urea Nitrogen 11 mg/dL (8-23); Calcium 8.9 mg/dL (8.5-10.5); Carbon Dioxide 23 mmol/L (22-29); Chloride 103 mmol/L (98-107); Globulin 2.6 g/dL (1.3-4.6); Glomerular Filtration Rate 101.3 mL/min (90-130); Glucose 100 mg/dL (65-115); Osmolality Calculated 279 mOsm/kg (285-295); Potassium 4.3 mmol/L (3.5-5.1); Sodium 135 mmol/L (136-145); Thyroid Stimulating Hormone 0.47 uIU/mL (0.27-4.20); Total Bilirubin 0.2 mg/dL (0.15-1.2); Total Protein 5.9 g/dL (6.6-8.7)
[2022-05-10] MEDS: nivolumab 240 MG in sodium chloride 0.9% 250 ML 548 MG IV (11:38)
[2022-05-10 12:26] VITALS: BP 99/64; PULSE 84; RESP 18; TEMP 36.3; O2SAT 95
== END 2022-05-31 23:59 | disposition home or self-care (01) ==
PROVIDERS: PCP Family Medicine; Visit Provider Internal Medicine Hematology & Oncology
DX: C21.8 Malignant neoplasm of overlapping sites of rectum, anus and anal canal
CPT/HCPCS: 80053; 84443; 85025; 96413; 99214; J7050; J9299

== ENCOUNTER 2022-06-07 12:35 | Emergency (ER) | payer MEDICARE, MEDICAID, SELFPAY ==
[2022-06-07 12:47] VITALS: PULSE 93; RESP 16; TEMP 36.3; O2SAT 97; BMI 25.1
--- NOTE | 2022-06-07 12:55 | USCV_ITS ---
Kathryn Brice Age: 62 Gender: F : 1960 Exam Date: 06/07/2022 13:21 Ordering Phys: Cleo Pruitt Technologist: CT Exam Location: [facility] [place]_ Indication: pain le PROCEDURES: Venous duplex imaging was performed in only the left lower extremity. In addition, the posterior tibial and peroneal trunk were evaluated. Serial compression, augmentation maneuvers, and spectral Doppler flow evaluation were performed. FINDINGS: normal us CONCLUSIONS No evidence of left lower extremity DVT. Clovis Francisco MD (Electronically Signed) Final Date: 07 June 2022 13:56 S
--- NOTE | 2022-06-07 12:59 | ED_ITS ---
HPI - Extremity Problem General: Chief complaint: Extremity Problem,Nontraumatic Stated complaint: swelling in legs Time Seen by Provider: 06/07/22 12:56 Source: patient Mode of arrival: ambulatory Limitations: no limitations History of Present Illness: Patient is a nice 62-year-old female who was referred to the emergency department for evaluation for a possible DVT. Patient states she noticed swelling to her left leg yesterday. Patient tells me she does have a history of DVT. At one point she was on anticoagulation for this but no longer is however states during her recent hospitalization in [facility] were giving her Lovenox injections. Patient states she was just discharged recently. She was hospitalized for what sounds like a proctectomy and revision of her colostomy. Patient states she is not having much leg discomfort. No numbness, tingling, loss of sensation. She has not noticed any color/temp changes. MD Complaint: extremity swelling Onset (ago): day(s) (noticed yesterday) Location: left and lower extremity Relieving factors: nothing Exacerbating factors: nothing Associated symptoms: Reports no associated symptoms; Deny chest pain or fever(s) Context: recent surgery/procedure and other (hx of malignancy ) Review of Systems Const: Denies: fever(s), chills, body aches, fatigue or malaise Card: Denies: chest pain, dyspnea on exertion or orthopnea Resp: Denies: dyspnea Musc: Reports: extremity swelling; Denies: neck pain, back pain, extremity pain, joint pain, joint swelling, joint redness, joint warmth, joint stiffness or limited range of motion Neuro: Denies: numbness in extremities, weakness in extremities, sensory changes or difficulty walking [facility] ED PFSH: Medical History Chronic cystitis 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 Haider Betts Recurrent UTI Surgical History H/O colectomy Diverting colostomy placement History of abdominal surgery Drain placed to drain abscess for a pre sacral fluid collection - [facility]. 2021 History of appendectomy History of bilateral tubal ligation History of bladder surgery S/P ureteral stent placement Placed in August 2019 and removed in September 2019 secondary to severe intolerable discomfort. Sounds like metallic stents. Family History Family/Other No problems noted. Daughter Clotting disorder Father Lung disease Other CAD (coronary artery disease) Dementia Denies family history of Diabetes Hyperlipidemia Psychiatric illness Chronic kidney disease (CKD) Suicide Anesthesia complication Bleeding disorder Cancer Hypertension Stroke Social History Smoking and tobacco status: former smoker (smoked x 20+ years) Alcohol intake: current Alcohol intake frequency: holidays/special occasions only Alcohol type: wine Household members: family Housing: House Physical Exam Const: COMMON NORMALS: no acute distress, average body habitus, patient oriented x3, no limitations, healthy appearing, alert and well nourished Resp: COMMON NORMALS: normal respiratory effort and clear to auscultation bilaterally AUSCULTATION: clear to auscultation bilaterally Cardio: COMMON NORMALS: regular rate and regular rhythm RATE: regular rate RHYTHM: regular rhythm Extremity: COMMON NORMALS: full ROM, capillary refill normal and no joint enlargement NARRATIVE EXTREMITY EXAM: patient has notable swelling to L lower extremity when compared to R; swelling mainly affects lower leg/calf region and does not seem to extend into foot/ankle; equivocal Arya's sign; extremity is equal/color temp when compared to right side; DP/PT pulses/cap refill/sensation all normal GENERAL: Yes normal exam except as noted Neuro: COMMON NORMALS: patient oriented x3, moves all extremities, no focal motor deficits, no sensory deficits noted and gait normal SENSORIUM/ORIENTATION: Yes alert Skin: COMMON NORMALS: no rashes or lesions noted GENERAL SKIN EXAM: no rashes or lesions noted Course Vital Signs: Vital signs: Vital Signs Temperature 97.3 F L 06/07/22 12:47 Pulse Rate 93 06/07/22 12:47 Respiratory Rate 16 06/07/22 12:47 Pulse Oximetry 97 06/07/22 12:47 Oxygen Delivery Me thod 06/07/22 12:47 MDM - Extremity (Nontraumatic) Medical Decision Making US showing no DVT. Recommend follow up with PCP and/or surgical team/oncology. Return to ED precautions given. Discharge Plan Discharge Patient Disposition: Home Clinical Impression: Swelling of left lower extremity Condition: Stable Prescriptions: No Action morphine 15 mg tablet extended release See Rx Instructions PO Q12H 30 Days Qty: 90 0RF Rx Instructions: 30mg every AM, 30mg every PM orally every 12 hours; Stivarga 40 mg tablet 80 mg .ROUTE DAILY 21 Days Qty: 42 0RF Rx Instructions: 80 mg daily; Take for 21 days, off 7 days, out of a 28 day cycle. Repeat. oxycodone-acetaminophen [Percocet] 10-325 mg tablet 1 - 2 tab PO Q4H PRN (Reason: breakthrough pain) 30 Days Qty: 90 0RF ondansetron 8 mg tablet,disintegrating 8 mg PO Q6H PRN (Reason: Nausea And Vomiting) Qty: 90 0RF multivitamin Tablet 1 tab PO DAILY@07 promethazine 25 mg tablet 25 mg PO Q6H PRN (Reason: nausea and vomiting) Qty: 20 0RF levothyroxine 100 mcg tablet 100 mcg PO DAILY nivolumab 240 mg/24 mL solution 240 mg IV Q14D Vitamin D3 25 mcg (1,000 unit) Capsule 25 mcg PO DAILY escitalopram oxalate 10 mg tablet 10 mg PO DAILY Flomax 0.4 mg capsule 0.4 mg PO DAILY Qty: 30 0RF Discharge Orders: Discharge ED (Routine); Ordered 06/07/22 Ordered By: Cleo Pruitt Referrals: Ciera Jeff MD [Primary Care Provider] - Coding Level of Care Code ED Sawmill Or Timber Yard Worker for Michael Lilly
== END 2022-06-07 14:01 | disposition home or self-care (01) ==
PROVIDERS: Emergency Provider Physician Assistant; PCP Family Medicine
DX: M79.89 Other specified soft tissue disorders (principal); Z87.891 Personal history of nicotine dependence; Z85.048 Personal history of other malignant neoplasm of rectum, rectosigmoid junction, and anus
CPT/HCPCS: 93971; 99284

== ENCOUNTER 2022-06-10 21:37 | Emergency (ER) | payer MEDICARE, MEDICAID, SELFPAY ==
[2022-06-10 21:56] VITALS: BP 122/68; PULSE 93; RESP 16; TEMP 37.1; O2SAT 95
--- NOTE | 2022-06-10 22:54 | XRR_ITS ---
PROCEDURE INFORMATION: Exam: XR Abdomen Exam date and time: 06/10/2022 11:00 PM Age: 62 years old Clinical indication: Abdominal pain; Acute; Additional info: Abd pain, colonoscopy 3 days ago, no bm since, cramping TECHNIQUE: Imaging protocol: Radiologic exam of the abdomen. Views: Frontal supine view of the abdomen. 1 View. COMPARISON: CT abdomen pelvis w con* [id number] 04/12/2022 3:24 PM FINDINGS: Gastrointestinal tract: No small bowel dilation or free air identified. Bones/joints: Mild bilateral hip and lumbar spine DJD. XR/XR KUB portable [id number] IMPRESSION: No acute findings.
[2022-06-10 22:59] VITALS: BP 121/74; PULSE 84; RESP 16; O2SAT 97
[2022-06-10 23:01] LABS: Basophils # 0.1 10^3/uL (0.0-0.1); Basophils % 0.7 %; Eosinophils # 0.3 10^3/uL (0.0-0.8); Eosinophils % 3.7 %; Hematocrit 33.7 % (37.0-47.0); Hemoglobin 10.2 g/dL (11.5-15.3); Lymphocytes # 0.9 10^3/uL (0.8-4.8); Lymphocytes % 10.2 %; Mean Corpuscular HGB Conc 30.3 g/dL (30.0-36.0); Mean Corpuscular Hemoglobin 28.1 pg (28.0-34.0); Mean Corpuscular Volume 92.8 fl (81-99); Monocytes # 0.5 10^3/uL (0.2-0.9); Neutrophils # 6.97 10^3/uL (1.8-7.7); Neutrophils % 78.9 %; Nucleated Red Blood Cells % 0 %; Platelet Count 387 10^3/cmm (130-400); Red Blood Count 3.63 10^6/uL (4.1-5.3); Red Cell Distribution Width 17.4 % (12.1-15.1); White Blood Count 8.8 10^3/uL (4.0-10.0)
[2022-06-10 23:26] LABS: Lactate (Lactic Acid level) 0.8 mmol/L (0.5-2.2)
[2022-06-10 23:27] LABS: Alanine Aminotransferase 8 U/L (0-33); Albumin Level 3.4 g/dL (3.5-5.2); Alkaline Phosphatase 139 U/L (35-105); Anion Gap 14.4 (5-19); Aspartate Amino Transferase 17 U/L (0-32); Blood Urea Nitrogen 5 mg/dL (8-23); C Reactive Protein 101.8 mg/L (0.0-4.9); Carbon Dioxide 30 mmol/L (22-29); Chloride 94 mmol/L (98-107); Globulin 2.8 g/dL (1.3-4.6); Glucose 92 mg/dL (65-115); Lipase 11 U/L (13-60); Osmolality Calculated 277 mOsm/kg (285-295); Potassium 3.4 mmol/L (3.5-5.1); Sodium 135 mmol/L (136-145); Total Bilirubin 0.3 mg/dL (0.15-1.2); Total Protein 6.2 g/dL (6.6-8.7)
[2022-06-10 23:31] LABS: Add Urine Microscopic? NO; Charge for UA Resulting for Rev
--- NOTE | 2022-06-10 23:34 | CTR_ITS ---
PROCEDURE INFORMATION: Exam: CT Abdomen And Pelvis Without Contrast Exam date and time: 06/11/2022 12:10 AM Age: 62 years old Clinical indication: Abdominal pain; Generalized; Prior surgery; Surgery date: <1 month; Surgery type: Revision of colostomy; Additional info: Low ostomy output, abd pain. Obstruction? TECHNIQUE: Imaging protocol: Computed tomography of the abdomen and pelvis without contrast. Radiation optimization: All CT scans at this facility use at least one of these dose optimization techniques: automated exposure control; mA and/or kV adjustment per patient size (includes targeted exams where dose is matched to clinical indication); or iterative reconstruction. Other protocol: This patient has received 2 known CTs and 0 known cardiac nuclear medicine studies in the 12 months prior to the current study. COMPARISON: CT abdomen pelvis w con* [id number] 04/12/2022 3:24 PM RADIATION DOSE METRICS: Total DLP (mGy-cm): 394.83 FINDINGS: Lungs: Minimal lung base atelectasis or scarring. Heart: The heart is normal size. Diaphragm: Small hiatal hernia. Liver: Unremarkable. No discrete mass. Gallbladder and bile ducts: No calcified gallstones or biliary dilation identified. Pancreas: Unremarkable with no suspicious mass. No ductal dilation. Spleen: The spleen is not enlarged. No suspicious mass is noted. Adrenal glands: Normal. No mass. Kidneys and ureters: There is new moderate bilateral hydronephrosis. This may be due to distal ureteral compression by the pelvic processes. Stomach and bowel: Left mid abdominal ostomy. Right colonic postop changes. There is diffuse large and small bowel wall thickening visualized. Generalized small bowel dilation up to about 4 cm. Appendix: Not seen. Intraperitoneal space: Mild abdominal free fluid. Diffuse mesenteric edema and scarring. Vasculature: No AAA or acute vascular lesion identified. Lymph nodes: No enlarged lymph nodes. Urinary bladder: Unremarkable as visualized. Reproductive: Unremarkable as visualized. Bones/joints: No new or aggressive bone lesion. Chronic upper sacral fracture again noted. Soft tissues: No acute or suspicious finding noted. Other findings: A presacral fluid collection is similar, difficult to assess without IV contrast. CT/CT abdomen pelvis wo con [id number] IMPRESSION: 1. Very complex surgical patient. The exam is challenging and inherently limited without IV contrast. 2. Interval colostomy revision with right colon postop changes. 3. There is diffuse large and small bowel wall thickening with enteritis/colitis likely. There is also moderate small bowel ileus. No high-grade small bowel obstruction, abscess or free air. 4. New moderate bilateral hydronephrosis. 5. Mild free fluid with mild diffuse mesenteric edema. Peritonitis is possible. Advise correlation. 6. Unchanged presacral complex fluid collection. 7. Numerous other chronic findings again seen.
--- NOTE | 2022-06-10 23:43 | W.ED.ABDPA2 ---
HPI - Abdominal Pain General: Chief Complaint: Abdominal Pain Stated Complaint: fever, abdomen pain, no output Time Seen by Provider: 06/10/22 22:30 Source: patient History of Present Illness: 62-year-old female who on 05/24 had an ileostomy conversion to a colostomy. She had a 14-day hospital stay. This was in [place]. She presents with very little to no ostomy output the past couple of days. She is experienced some abdominal fullness and cramping, especially since taking MiraLAX and milk of magnesia for the above problem. No fever. Son notes that she has had some chills. No vomiting but she has had nausea. Since her arrival, she started to put out some loose stool in her ostomy bag, which is the most she has had in 3 days or so. MD elicited complaint: abdominal pain Pertinent past history: other Onset (ago): day(s) Pain Consistency: intermittent Location: Diffuse Severity: moderate Quality: cramping Radiation: none Migration to: no migration Relieving factors: nothing Associated Symptoms: Reports change in stool character, chills, constipation, GI cramping and nausea; Denies dysuria, fever(s), hematochezia, melena and vomiting Review of Systems Const: Reports: chills; Denies: fever(s) Card: Denies: chest pain Resp: Denies: dyspnea GI: Reports: nausea, constipation, GI cramping and change in stool character; Denies: vomiting, hematochezia or melena : Denies: dysuria PFSH ED PFSH: Medical History Chronic cystitis 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 Haider Espino Louis Recurrent UTI Surgical History H/O colectomy Diverting colostomy placement History of abdominal surgery Drain placed to drain abscess for a pre sacral fluid collection - [facility]. 2021 History of appendectomy History of bilateral tubal ligation History of bladder surgery S/P ureteral stent placement Placed in August 2019 and removed in September 2019 secondary to severe intolerable discomfort. Sounds like metallic stents. Family History Family/Other No problems noted. Daughter Clotting disorder Father Lung disease Other CAD (coronary artery disease) Dementia Denies family history of Diabetes Hyperlipidemia Psychiatric illness Chronic kidney disease (CKD) Suicide Anesthesia complication Bleeding disorder Cancer Hypertension Stroke Social History Smoking and tobacco status: former smoker (smoked x 20+ years) Alcohol intake: current Alcohol intake frequency: holidays/special occasions only Alcohol type: wine Household members: family Housing: House Physical Exam Const: GENERAL APPEARANCE: cooperative; not frail appearing NUTRITIONAL APPEARANCE: thin HENMT: COMMON NORMALS: normocephalic, atraumatic and Normal external nose present HEAD & SCALP: normocephalic and atraumatic FACE & SINUS: normal facial exam and face symmetric NOSE: Normal external nose present Eye: COMMON NORMALS: Equal, round and reactive pupils present and EOMs intact bilaterally PUPIL: Yes Equal, round and reactive pupils present Neck/C-Spine: GENERAL: Yes trachea midline Chest: CHEST: Yes Symmetrical chest wall rise Resp: COMMON NORMALS: normal respiratory effort, No retractions, No use of accessory muscles and clear to auscultation bilaterally AUSCULTATION: clear to auscultation bilaterally Cardio: COMMON NORMALS: regular rate and regular rhythm RATE: regular rate RHYTHM: regular rhythm GI: COMMON NORMALS: Normal to inspection, nondistended, normoactive bowel sounds present OTHER: Ostomy in place. Soft stool with gas present in bag. Belly is mildly firm. Incision looks clean without opening or drainage. No erythema. Belly is mildly tender. No significant distention, no peritoneal signs. Bowel sounds are present Extremity: COMMON NORMALS: no pedal edema Neuro: NICOLE COMA SCALE: document GCS findings [place] coma scale eye opening: Spontaneous [place] coma scale verbal response: Orientated [place] coma scale motor response: Obey commands Nicole coma scale total score: 15 SENSORY EXAM: Yes extremities (intact) Psych: COMMON NORMALS: speech normal SPEECH: Yes normal speech Skin: COMMON NORMALS: no rashes or lesions noted GENERAL SKIN EXAM: no rashes or lesions noted Course Vital Signs: Vital signs: Vital Signs Temperature 98.8 F 06/10/22 21:56 Pulse Rate 83 06/11/22 01:40 Respiratory Rate 16 06/11/22 01:40 Blood Pressure 124/68 06/11/22 01:40 Pulse Oximetry 98 06/11/22 01:40 Oxygen Delivery Me thod 06/11/22 01:00 MDM - Abdominal Pain Medical Decision Making Ostomy output has increased while she is here. She is emptied the bag once. She is feeling improved. Vitals are good. White blood cell count is 8.8. Hemoglobin is 10. CRP is elevated, but could be elevated postoperatively. Urinalysis is negative. Lactate is 0.8. Creatinine is 0.5. CT shows some diffuse large and small bowel wall thickening with the possibility of colitis. There is a moderate small bowel ileus, which is likely the cause of her decreased output. She has a presacral complex fluid collection that was present on a previous CT scan and is unchanged. There is no mechanical obstruction present. With improvement in her ostomy output, which is what brought her to the emergency department, no significant elevation in white blood cell count or lactate, and findings of ileus on CT, as well as what is likely postoperative change, she will be allowed discharge. She is feeling improved. She knows to return for any worsening symptoms. She will be given a couple doses of lactulose to help bowel output. She will call her surgeon's office at the beginning of the week. We will send our note to them, as well as lab and CT findings. Lab Data 06/10/22 22:40 06/10/22 22:40 Labs/Radiology: Radiology Impressions KUB X-Ray 06/10/22 22:54 IMPRESSION: No acute findings. Abdomen/Pelvis CT 06/10/22 23:34 IMPRESSION: 1. Very complex surgical patient. The exam is challenging and inherently limited without IV contrast. 2. Interval colostomy revision with right colon postop changes. 3. There is diffuse large and small bowel wall thickening with enteritis/colitis likely. There is also moderate small bowel ileus. No high-grade small bowel obstruction, abscess or free air. 4. New moderate bilateral hydronephrosis. 5. Mild free fluid with mild diffuse mesenteric edema. Peritonitis is possible. Advise correlation. 6. Unchanged presacral complex fluid collection. 7. Numerous other chronic findings again seen. Laboratory Results WBC 8.8 10^3/uL (4.0-10.0) 02/10/23 22:40 RBC 3.63 10^6/uL (4.1-5.3) L 06/10/22 22:40 Hgb 10.2 g/dL (11.5-15.3) L 06/10/22:40 Hct 33.7 % (37.0-47.0) L 06/10/22:40 MCV 92.8 fl (81-99) 06/10/22:40 MCH 28.1 pg (28.0-34.0) 06/10/22:40 MCHC 30.3 g/dL (30.0-36.0) 06/10/22: RDW 17.4 % (12.1-15.1) H 06/10/22: Plt Count 387 10^3/cmm (130-400) 06/10/22:40 MPV 10.0 fL (7.4-10.4) 06/10/22 22:40 Neut % (Auto) 78.9 % 06/10/22:40 Lymph % (Auto) 10.2 % 06/10/22:40 Bond % (Auto) 6.0 % 06/10/22:40 Eos % (Auto) 3.7 % 06/10/22:40 Baso % (Auto) 0.7 % 06/10/22:40 Neut # (Auto) 6.97 10^3/uL (1.8-7.7) 06/10/22:40 Lymph # (Auto) 0.9 10^3/uL (0.8-4.8) 06/10/22:40 Bond # (Auto) 0.5 10^3/uL (0.2-0.9) 06/10/22:40 Eos # (Auto) 0.3 10^3/uL (0.0-0.8) 06/10/22:40 Baso # (Auto) 0.1 10^3/uL (0.0-0.1) 06/10/22:40 Nucleated RBC % (auto) 0 % 06/10/22: Nucleated RBCs # 0.0 /100WBC 06/10/22:40 Sodium 135 mmol/L (136-145) L 06/10/22 22:40 Potassium 3.4 mmol/L (3.5-5.1) L 06/10/22 22:40 Chloride 94 mmol/L (98-107) L 06/10/22 22:40 Carbon Dioxide 30 mmol/L (22-29) H 06/10/22 22:40 Anion Gap 14.4 (5-19) 06/10/22 22:40 BUN 5 mg/dL (8-23) L 06/10/22 22:40 Creatinine 0.5 mg/dL (0.5-0.9) 06/10/22 22:40 GFR Calculation 125.0 mL/min (90-130) 06/10/22 22:40 Glucose 92 mg/dL (65-115) 06/10/22 22:40 Calculated Osmolality 277 mOsm/kg (285-295) L 06/10/22 22:40 Lactate 0.8 mmol/L (0.5-2.2) 06/10/22 22:40 Calcium 9.0 mg/dL (8.5-10.5) 06/10/22 22:40 Total Bilirubin 0.3 mg/dL (0.15-1.2) 06/10/22 22:40 AST 17 U/L (0-32) 06/10/22 22:40 ALT 8 U/L (0-33) 06/10/22 22:40 Alkaline Phosphatase 139 U/L (35-105) H 06/10/22 22:40 C-Reactive Protein 101.8 mg/L (0.0-4.9) H 06/10/22 22:40 Total Protein 6.2 g/dL (6.6-8.7) L 06/10/22 22:40 Albumin 3.4 g/dL (3.5-5.2) L 06/10/22 22:40 Globulin 2.8 g/dL (1.3-4.6) 06/10/22 22:40 Lipase 11 U/L (13-60) L 06/10/22 22:40 Urine Color Colorless (Yellow) 06/10/22 22:40 Urine Appearance Clear (CLEAR) 06/10/22 22:40 Urine pH 8 (5-7) H 06/10/22 22:40 Ur Specific Martin 1.005 (1.005-1.030) 06/10/22 22:40 Urine Protein Neg (Negative) 06/10/22 22:40 Urine Glucose (UA) Norm (Normal) 06/10/22 22:40 Urine Ketones Negative (Negative) 06/10/22 22:40 Urine Blood Neg (Negative) 06/10/22 22:40 Urine Nitrate Negative (Negative) 06/10/22 22:40 Urine Bilirubin Neg (Negative) 06/10/22 22:40 Prot Sulfosalicylic Acd Negative (Negative) 06/10/22 22:40 Urine Urobilinogen Neg mg/dL (Negative) 06/10/22 22:40 Ur Leukocyte Esterase Negative (Negative) 06/10/22 22:40 Discharge Plan Discharge Patient Disposition: Home Clinical Impression: Paralytic ileus of small intestine and colon Condition: Stable Prescriptions: New lactulose 10 gram/15 mL (15 mL) solution 20 g PO BID PRN (Reason: constipation) Qty: 750 0RF No Action morphine 15 mg tablet extended release See Rx Instructions PO Q12H 30 Days Qty: 90 0RF Rx Instructions: 30mg every AM, 30mg every PM orally every 12 hours; Stivarga 40 mg tablet 80 mg .ROUTE DAILY 21 Days Qty: 42 0RF Rx Instructions: 80 mg daily; Take for 21 days, off 7 days, out of a 28 day cycle. Repeat. oxycodone-acetaminophen [Percocet] 10-325 mg tablet 1 - 2 tab PO Q4H PRN (Reason: breakthrough pain) 30 Days Qty: 90 0RF ondansetron 8 mg tablet,disintegrating 8 mg PO Q6H PRN (Reason: Nausea And Vomiting) Qty: 90 0RF multivitamin Tablet 1 tab PO DAILY@07 promethazine 25 mg tablet 25 mg PO Q6H PRN (Reason: nausea and vomiting) Qty: 20 0RF levothyroxine 100 mcg tablet 100 mcg PO DAILY nivolumab 240 mg/24 mL solution 240 mg IV Q14D Vitamin D3 25 mcg (1,000 unit) Capsule 25 mcg PO DAILY escitalopram oxalate 10 mg tablet 10 mg PO DAILY Flomax 0.4 mg capsule 0.4 mg PO DAILY Qty: 30 0RF Discharge Orders: Discharge ED (Routine); Ordered 06/11/22 Ordered By: Wilfredo Garnica Referrals: Ciera Jeff MD [Primary Care Provider] - Patient Instructions: Ileus (ED), Opioid Safety, Pain Management Activity Restrictions/Additional Instructions: Take the medication you were prescribed x2 doses, then as needed. Return for any worsening pain, distention, lack of ostomy output, fever, vomiting, or any other concerning symptoms. Monitor symptoms closely. Call your surgeon's office at the beginning of the week and let them know you were seen here. We will attempt to send records to them as well. Coding Level of Care Code ED Senior Business Intelligence Analyst for Michael Lilly
[2022-06-10] MEDS: sodium chloride 0.9% 500 ML 999 ML IV (23:49)
[2022-06-11 00:13] LABS: Bilirubin Urine Neg (Negative); Blood Urine Neg (Negative); Glucose Urine UA Norm (Normal); Ketones Urine Negative (Negative); Nitrate Urine Negative (Negative); Protein Urine Neg (Negative); Specific Gravity, Urine 1.005 (1.005-1.030); Urine Appearance Clear (CLEAR); Urine Color Colorless (Yellow); pH Urine 8 (5-7)
[2022-06-11 00:14] LABS: Leukocyte Esterase Urine Negative (Negative); Sulfosalicylic Acid Urine Negative (Negative); Urobilinogen Urine Neg (Negative)
[2022-06-11 01:00] VITALS: BP 120/75; O2SAT 98
[2022-06-11 01:40] VITALS: BP 124/68; PULSE 83; RESP 16; O2SAT 98
--- NOTE | 2022-06-13 11:44 | DCPLANNER ---
manager servicing had message to send patients information to her surgeon at [facility]. manager servicing called clinic at- [phone], fax number for clinic is [phone]. manager servicing will fax patients information to the surgery clinic with patients physician Dr. Avelina Burch.
== END 2022-06-11 01:42 | disposition home or self-care (01) ==
PROVIDERS: Emergency Provider Emergency Medicine; PCP Family Medicine
DX: K56.0 Paralytic ileus (principal); Z87.891 Personal history of nicotine dependence; Z85.048 Personal history of other malignant neoplasm of rectum, rectosigmoid junction, and anus; Z93.3 Colostomy status
CPT/HCPCS: 74018; 74176; 80053; 81003; 83605; 83690; 85025; 86140; 96360; 96361; 99285; J7040

== ENCOUNTER 2022-06-14 09:55 | Oncology outpatient (recurring) (ONCR) | payer MEDICARE, MEDICAID, SELFPAY ==
[2022-06-14 10:07] VITALS: BMI 19.9
[2022-06-14 10:21] LABS: Basophils # 0.1 10^3/uL (0.0-0.1); Basophils % 0.7 %; Eosinophils # 0.2 10^3/uL (0.0-0.8); Eosinophils % 1.9 %; Hemoglobin 9.6 g/dL (11.5-15.3); Lymphocytes # 1.1 10^3/uL (0.8-4.8); Lymphocytes % 12.3 %; Mean Corpuscular Hemoglobin 27.4 pg (28.0-34.0); Mean Corpuscular Volume 91.2 fl (81-99); Mean Platelet Volume 9.6 fL (7.4-10.4); Monocytes # 0.5 10^3/uL (0.2-0.9); Monocytes % 6.1 %; Neutrophils # 6.96 10^3/uL (1.8-7.7); Neutrophils % 78.5 %; Nucleated Red Blood Cells % 0 %; Platelet Count 372 10^3/cmm (130-400); Red Blood Count 3.51 10^6/uL (4.1-5.3); Red Cell Distribution Width 17.2 % (12.1-15.1); White Blood Count 8.9 10^3/uL (4.0-10.0)
[2022-06-14 10:47] LABS: Alanine Aminotransferase 6 U/L (0-33); Albumin Level 3.3 g/dL (3.5-5.2); Alkaline Phosphatase 122 U/L (35-105); Anion Gap 14.7 (5-19); Aspartate Amino Transferase 11 U/L (0-32); Blood Urea Nitrogen 6 mg/dL (8-23); Calcium 8.7 mg/dL (8.5-10.5); Carbon Dioxide 27 mmol/L (22-29); Chloride 98 mmol/L (98-107); Globulin 2.8 g/dL (1.3-4.6); Glucose 101 mg/dL (65-115); Osmolality Calculated 280 mOsm/kg (285-295); Potassium 3.7 mmol/L (3.5-5.1); Sodium 136 mmol/L (136-145); Thyroid Stimulating Hormone 6.22 uIU/mL (0.27-4.20); Total Bilirubin 0.3 mg/dL (0.15-1.2); Total Protein 6.1 g/dL (6.6-8.7)
== END 2022-06-28 23:59 | disposition home or self-care (01) ==
PROVIDERS: PCP Family Medicine; Visit Provider Internal Medicine Hematology & Oncology
DX: C21.8 Malignant neoplasm of overlapping sites of rectum, anus and anal canal (principal); Z90.49 Acquired absence of other specified parts of digestive tract; Z79.899 Other long term (current) drug therapy
CPT/HCPCS: 80053; 84443; 85025; 99214

== ENCOUNTER 2022-06-20 17:57 | Emergency (ER) | payer MEDICARE, MEDICAID, SELFPAY ==
[2022-06-20 18:00] VITALS: BP 110/70; PULSE 104; RESP 18; TEMP 37.5; O2SAT 96
[2022-06-20] MEDS: HYDROcodone-acetaminophen 7.5-325 mg Tablet 1 TAB PO (20:49)
--- NOTE | 2022-06-20 21:06 | W.ED.GENADLT ---
HPI - General Adult General: Chief complaint: General Medical Stated complaint: Sore on Bottom infected and leaking Time Seen by Provider: 06/20/22 20:30 History of Present Illness: Patient is a 62-year-old female comes to the ED with wound on buttock. Patient has a history of rectal cancer and had a surgery for an ileostomy conversion to a colostomy at [facility] back on May 24, 2022. Before that surgery she also had a JERI drain placed in right buttock that was draining a previous abscess that she stated had Salmonella. Approximately little over a week ago she started developing some pain in swelling at previous JERI drain site. She describes the swelling on her right buttock as a tender nodule. Pain and swelling continued to get worse over the past week. Today, the sore area opened up and started draining out blood, brown fluid and pus. She rates her current pain a 6 out of 10. Patient states she was on an antibiotic recently but is unsure what antibiotic she was on. Denies any fevers, nausea/vomiting or bladder or bowel symptoms. She is having some output in her colostomy but says since the surgery output is slow but is improving. Associated symptoms: Deny chest pain, dyspnea, headache(s), nausea, rash, palpitations or vomiting Review of Systems Const: Denies: fever(s), chills or fatigue Eyes: Denies: change in vision or eye discomfort ENMT: Denies: throat pain, odynophagia, nasal discharge or nasal congestion Card: Denies: chest pain, palpitations, edema, swelling of feet/ankles, dyspnea on exertion or orthopnea Resp: Denies: dyspnea, productive cough or non-productive cough GI: Denies: abdominal pain, nausea, vomiting, diarrhea, constipation or hematochezia : Denies: flank pain, dysuria or hematuria Musc: Denies: neck pain, back pain or extremity swelling Skin/Breast: Reports: new lesions (Abscess on right buttock where previous JERI drain was placed); Denies: rash Neuro: Denies: headache(s), numbness in extremities or weakness in extremities PFS ED PFSH: Medical History (Updated 06/20/22 @ 23:10 by ALEXANDER Fernández) Chronic cystitis 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 Maloney [place] Recurrent UTI Surgical History (Updated 06/14/22 @ 11:06 by Bri Jo LPN) H/O colectomy Diverting colostomy placement History of abdominal surgery Drain placed to drain abscess for a pre sacral fluid collection - [facility]. 2021 History of appendectomy History of bilateral tubal ligation History of bladder surgery S/P ureteral stent placement Placed in August 2019 and removed in September 2019 secondary to severe intolerable discomfort. Sounds like metallic stents. Family History Family/Other No problems noted. Daughter Clotting disorder Father Lung disease Other CAD (coronary artery disease) Dementia Denies family history of Diabetes Hyperlipidemia Psychiatric illness Chronic kidney disease (CKD) Suicide Anesthesia complication Bleeding disorder Cancer Hypertension Stroke Social History Smoking and tobacco status: former smoker (smoked x 20+ years) Alcohol intake: current Alcohol intake frequency: holidays/special occasions only Alcohol type: wine Household members: family Housing: House Physical Exam Const: COMMON NORMALS: patient oriented x3 and alert GENERAL APPEARANCE: cooperative HENMT: COMMON NORMALS: normocephalic HEAD & SCALP: normocephalic MOUTH: Normal oral and palatal mucosa present THROAT: posterior oropharynx normal and uvula midline Neck/C-Spine: COMMON NORMALS: supple GENERAL: Yes normal visual inspection Resp: COMMON NORMALS: normal respiratory effort, No retractions, No use of accessory muscles and clear to auscultation bilaterally AUSCULTATION: clear to auscultation bilaterally Cardio: COMMON NORMALS: regular rate, regular rhythm, S1 normal heart sound present, S2 normal heart sound present, No gallops present (Cardio), No clicks present (Cardio), No murmurs present (Cardio) and Peripheral pulses 2+ throughout RATE: regular rate RHYTHM: regular rhythm HEART SOUNDS: S1 normal heart sound present and S2 normal heart sound present PERIPHERAL PULSES: Peripheral pulses 2+ throughout GI: COMMON NORMALS: Normal to inspection, nondistended, normoactive bowel sounds present, Soft to palpation, non-tender and no masses PALPATION: Yes Soft to palpation : COMMON NORMALS: Yes no CVA tenderness BLADDER/KIDNEY EXAM: Yes no CVA tenderness Back/Pelvis: COMMON NORMALS: no CVA tenderness Neuro: COMMON NORMALS: patient oriented x3 SENSORIUM/ORIENTATION: Yes alert GAIT: Yes Normal gait present Skin: NARRATIVE SKIN EXAM: Right buttock?open sore that is draining out thick pus. Opening of sore is approximately 2 cm. There is surrounding erythema and warmth. Surrounding area is very firm and tender to palpation. GENERAL SKIN EXAM: dry skin Course Consultations: Consultation #1: I contacted the colorectal cancer specialist at [facility] and they were familiar with patient case and I told him about CT findings. Since patient's vitals are stable, white blood cell count at 8 and patient is afebrile he thought patient was stable for discharge home and she can contact their office tomorrow morning to set up outpatient IR surgery to drain abscess. He recommended giving patient IV antibiotics Cipro and Flagyl and discharged home with p.o. antibiotics as well Vital Signs: Vital signs: Vital Signs Temperature 99.5 F 06/20/22 18:00 Pulse Rate 104 H 06/20/22 18:00 Respiratory Rate 18 06/20/22 18:00 Blood Pressure 110/70 06/20/22 18:00 Pulse Oximetry 96 06/20/22 18:00 MDM - General Adult Medical Decision Making Patient is a 62-year-old female comes to the ED with wound on buttock. Patient has a history of rectal cancer and had a surgery for an ileostomy conversion to a colostomy at [facility] back on May 24, 2022. Before that surgery she also had a JERI drain placed in right buttock that was draining a previous abscess that she stated had Salmonella. Approximately little over a week ago she started developing some pain in swelling at previous JERI drain site. She describes the swelling on her right buttock as a tender nodule. Pain and swelling continued to get worse over the past week. Today, the sore area opened up and started draining out blood, brown fluid and pus. Denies any fevers or any other symptoms. Vitals are stable. Exam?right buttock?open sore that is draining out thick pus. Opening of sore is approximately 2 cm. there is surrounding erythema and warmth. Surrounding area is very firm and tender to palpation.rest of exam is benign. White blood cell count of 8 and hemoglobin of 8.2 but the rest of labs are unremarkable. CT of abdomen pelvis shows a presacral pelvis abscess and a right buttock abscess that likely communicate. I contacted the colorectal cancer surgeon at [facility] who treated patient. I discussed patient case, labs and CT findings and he recommended giving patient IV antibiotics and discharging them home with p.o. antibiotics. She can contact colorectal cancer surgeon tomorrow to set up an outpatient IR procedure to drain abscess. Patient understood and agreed with this plan. She was given IV Cipro and Flagyl here in the ED and then discharged home with p.o. antibiotics. Return to ED precautions given. Patient understood and agreed with plan. I discussed patient case with Dr. Shen and he agreed with plan. Lab Data I reviewed the patient's lab results. 06/20/22 21:50 06/20/22 21:50 Radiology Impressions Abdomen/Pelvis CT 06/20/22 21:20 IMPRESSION: 1. Fluid collection in the deep pelvis presacral region measuring 7 x 3.6 x 4 cm, somewhat similar to prior exam concerning for an infectious process, given some peripheral contrast enhancement. Associated with this is a 3 cm collection of fluid in right gluteus muscles, series 3, image 65 with some overlying subcutaneous edema in the buttock subcutaneous fat, likely corresponding to provided history of right buttocks abscess. It is not entirely clear if this fluid collection communicates with the presacral fluid collection. 2. Mild right hydronephrosis, less prominent compared to prior exam, previously seen left-sided hydronephrosis has resolved. 3. Left kidney cyst. 4. Left-sided ostomy. 5. Stable diffuse mesenteric edema, nonspecific. 6. L5 vertebral body superior endplate compression fracture without retropulsion bony fragments. 7. Suspected bilateral chronic sacral insufficiency fractures along some lucent bony destruction perhaps reflecting underlying metastatic disease, similar to prior exam. 8. Hepatic steatosis. COMMENTS: Consistent with the [employer]'s Incidental Findings Committee white paper (J Am Génesis Radiol 2018): Any incidental renal lesion less than 1 cm or classified as too small to characterize, or any incidental cystic renal lesion characterized as simple-appearing, is likely benign. No follow-up imaging is recommended for these lesions per consensus recommendations based on imaging criteria. Laboratory Results WBC 8.4 10^3/uL (4.0-10.0) 06/20/22 21:50 RBC 2.94 10^6/uL (4.1-5.3) L 06/20/22 21:50 Hgb 8.2 g/dL (11.5-15.3) L 06/20/22 21:50 Hct 26.7 % (37.0-47.0) L 06/20/22 21:50 MCV 90.8 fl (81-99) 06/20/22 21:50 MCH 27.9 pg (28.0-34.0) L 06/20/22 21:50 MCHC 30.7 g/dL (30.0-36.0) 06/20/22 21:50 RDW 16.7 % (12.1-15.1) H 06/20/22 21:50 Plt Count 382 10^3/cmm (130-400) 06/20/22 21:50 MPV 10.1 fL (7.4-10.4) 06/20/22 21:50 Neut % (Auto) 74.2 % 06/20/22 21:50 Lymph % (Auto) 15.4 % 06/20/22 21:50 Lincoln % (Auto) 8.1 % 06/20/22 21:50 Eos % (Auto) 1.3 % 06/20/22 21:50 Baso % (Auto) 0.5 % 06/20/22 21:50 Neut # (Auto) 6.21 10^3/uL (1.8-7.7) 06/20/22 21:50 Lymph # (Auto) 1.3 10^3/uL (0.8-4.8) 06/20/22 21:50 Lincoln # (Auto) 0.7 10^3/uL (0.2-0.9) 06/20/22 21:50 Eos # (Auto) 0.1 10^3/uL (0.0-0.8) 06/20/22 21:50 Baso # (Auto) 0.0 10^3/uL (0.0-0.1) 06/20/22 21:50 Nucleated RBC % (auto) 0 % 06/20/22 21:50 Nucleated RBCs # 0.0 /100WBC 06/20/22 21:50 Sodium 134 mmol/L (136-145) L 06/20/22 21:50 Potassium 3.9 mmol/L (3.5-5.1) 06/20/22 21:50 Chloride 97 mmol/L (98-107) L 06/20/22 21:50 Carbon Dioxide 25 mmol/L (22-29) 06/20/22 21:50 Anion Gap 15.9 (5-19) 06/20/22 21:50 BUN 9 mg/dL (8-23) 06/20/22 21:50 Creatinine 0.5 mg/dL (0.5-0.9) 06/20/22 21:50 GFR Calculation 125.0 mL/min (90-130) 06/20/22 21:50 Glucose 107 mg/dL (65-115) 06/20/22 21:50 Calculated Osmolality 277 mOsm/kg (285-295) L 06/20/22 21:50 Calcium 8.5 mg/dL (8.5-10.5) 06/20/22 21:50 Discharge Plan Discharge Patient Disposition: Home Clinical Impression: Abscess of right buttock, Pelvic abscess Condition: Stable Prescriptions: New ciprofloxacin HCl 500 mg tablet 500 mg PO BID 10 Days Qty: 20 0RF metronidazole 500 mg tablet 500 mg PO BID 10 Days Qty: 20 0RF No Action morphine 15 mg tablet extended release See Rx Instructions PO Q12H 30 Days Qty: 90 0RF Rx Instructions: 30mg every AM, 30mg every PM orally every 12 hours; Stivarga 40 mg tablet 80 mg .ROUTE DAILY 21 Days Qty: 42 0RF Rx Instructions: 80 mg daily; Take for 21 days, off 7 days, out of a 28 day cycle. Repeat. oxycodone-acetaminophen [Percocet] 10-325 mg tablet 1 - 2 tab PO Q4H PRN (Reason: breakthrough pain) 30 Days Qty: 90 0RF ondansetron 8 mg tablet,disintegrating 8 mg PO Q6H PRN (Reason: Nausea And Vomiting) Qty: 90 0RF multivitamin Tablet 1 tab PO DAILY@07 promethazine 25 mg tablet 25 mg PO Q6H PRN (Reason: nausea and vomiting) Qty: 20 0RF levothyroxine 100 mcg tablet 100 mcg PO DAILY nivolumab 240 mg/24 mL solution 240 mg IV Q14D Vitamin D3 25 mcg (1,000 unit) Capsule 25 mcg PO DAILY escitalopram oxalate 10 mg tablet 10 mg PO DAILY Flomax 0.4 mg capsule 0.4 mg PO DAILY Qty: 30 0RF lactulose 10 gram/15 mL (15 mL) solution 20 g PO BID PRN (Reason: constipation) Qty: 750 0RF Discharge Orders: Discharge ED (Routine); Ordered 06/20/22 Ordered By: Dimas Pate Referrals: Ciera Jeff MD [Primary Care Provider] - Discharge Diet: Regular Discharge Activity: Increase activity as tolerated Activity Restrictions/Additional Instructions: Contact your colorectal cancer surgeon Dr. Burch tomorrow morning to set up outpatient IR surgery to drain abscess. Take medications as prescribed. Return to the ER or your medical provider if condition worsens. Please read and understand discharge instructions. Thank you for choosing [facility] for your healthcare needs today. Please realize this is an emergency room and that we are providing you with a medical screening exam and this may not be complete and all inclusive of all the testing and or work up that you may need to determine your ailment or severity of your illness. It is very important that you follow up as instructed or that you return to the Emergency Department should you have concerns or if your condition changes or worsens in any way. Coding Level of Care Code ED Ore Mixer for Michael Lilly
--- NOTE | 2022-06-20 21:20 | CTR_ITS ---
PROCEDURE INFORMATION: Exam: CT Abdomen And Pelvis With Contrast Exam date and time: 06/20/2022 9:29 PM Age: 62 years old Clinical indication: Prior surgery; Surgery type: Partial colectomy. Colostomy. Appy. Bladder. Tubal ligation. Patient HX: Sacral/rt gluteal abscess with drainage. Had drain pulled on may 24, 2022 at outside facility. Abscess result of colon surgery complications. History of rectal cancer. ; Additional info: Abscess on right buttock, patient had prasad drain at abscess site on right buttock TECHNIQUE: Imaging protocol: Computed tomography of the abdomen and pelvis with contrast. Radiation optimization: All CT scans at this facility use at least one of these dose optimization techniques: automated exposure control; mA and/or kV adjustment per patient size (includes targeted exams where dose is matched to clinical indication); or iterative reconstruction. Contrast material: OMNI 350; Contrast volume: 100 ml; Contrast route: INTRAVENOUS (IV); Other protocol: This patient has received 3 known CTs and 0 known cardiac nuclear medicine studies in the 12 months prior to the current study. COMPARISON: CT abdomen pelvis con [id number] 06/11/2022 12:10 AM RADIATION DOSE METRICS: Total DLP (mGy-cm): 386.72 FINDINGS: Liver: Hepatic steatosis. Gallbladder and bile ducts: Normal. No calcified stones. No ductal dilation. Pancreas: Normal. No ductal dilation. Spleen: Normal. No splenomegaly. Adrenal glands: Normal. No mass. Kidneys and ureters: Mild right hydronephrosis, less prominent compared to prior exam, previously seen left-sided hydronephrosis has resolved. Left kidney cyst. Stomach and bowel: Left-sided ostomy. Appendix: No evidence of appendicitis. Intraperitoneal space: Stable diffuse mesenteric edema, nonspecific. Vasculature: Unremarkable. No abdominal aortic aneurysm. Lymph nodes: Unremarkable. No enlarged lymph nodes. Urinary bladder: Unremarkable as visualized. Reproductive: Unremarkable as visualized. Bones/joints: L5 vertebral body superior endplate compression fracture without retropulsion bony fragments. Suspected bilateral chronic sacral insufficiency fractures along some lucent bony destruction perhaps reflecting underlying metastatic disease. Soft tissues: See below. Other findings: Fluid collection in the deep pelvis presacral region measuring 7 x 3.6 x 4 cm, somewhat similar to prior exam concerning for an infectious process, given some peripheral contrast enhancement. Associated with this is a 3 cm collection of fluid in right gluteus muscles, series 3, image 65 with some overlying subcutaneous edema in the buttock subcutaneous fat, likely corresponding to provided history of right buttocks abscess. It is not entirely clear if this fluid collection communicates with the presacral fluid collection. CT/CT abdomen pelvis w con* [id number] IMPRESSION: 1. Fluid collection in the deep pelvis presacral region measuring 7 x 3.6 x 4 cm, somewhat similar to prior exam concerning for an infectious process, given some peripheral contrast enhancement. Associated with this is a 3 cm collection of fluid in right gluteus muscles, series 3, image 65 with some overlying subcutaneous edema in the buttock subcutaneous fat, likely corresponding to provided history of right buttocks abscess. It is not entirely clear if this fluid collection communicates with the presacral fluid collection. 2. Mild right hydronephrosis, less prominent compared to prior exam, previously seen left-sided hydronephrosis has resolved. 3. Left kidney cyst. 4. Left-sided ostomy. 5. Stable diffuse mesenteric edema, nonspecific. 6. L5 vertebral body superior endplate compression fracture without retropulsion bony fragments. 7. Suspected bilateral chronic sacral insufficiency fractures along some lucent bony destruction perhaps reflecting underlying metastatic disease, similar to prior exam. 8. Hepatic steatosis. COMMENTS: Consistent with the [employer] [employer]'s Incidental Findings Committee white paper (J Am Génesis Radiol 2018): Any incidental renal lesion less than 1 cm or classified as too small to characterize, or any incidental cystic renal lesion characterized as simple-appearing, is likely benign. No follow-up imaging is recommended for these lesions per consensus recommendations based on imaging criteria.
[2022-06-20] MEDS: iohexol 350 mg/mL 500 mL Btl (per mL) IV (21:32)
[2022-06-20 22:10] LABS: Basophils % 0.5 %; Eosinophils # 0.1 10^3/uL (0.0-0.8); Eosinophils % 1.3 %; Hematocrit 26.7 % (37.0-47.0); Hemoglobin 8.2 g/dL (11.5-15.3); Lymphocytes # 1.3 10^3/uL (0.8-4.8); Lymphocytes % 15.4 %; Mean Corpuscular HGB Conc 30.7 g/dL (30.0-36.0); Mean Corpuscular Hemoglobin 27.9 pg (28.0-34.0); Mean Corpuscular Volume 90.8 fl (81-99); Mean Platelet Volume 10.1 fL (7.4-10.4); Monocytes # 0.7 10^3/uL (0.2-0.9); Monocytes % 8.1 %; Neutrophils # 6.21 10^3/uL (1.8-7.7); Neutrophils % 74.2 %; Nucleated Red Blood Cells % 0 %; Platelet Count 382 10^3/cmm (130-400); Red Blood Count 2.94 10^6/uL (4.1-5.3); Red Cell Distribution Width 16.7 % (12.1-15.1); White Blood Count 8.4 10^3/uL (4.0-10.0)
[2022-06-20 22:32] LABS: Anion Gap 15.9 (5-19); Blood Urea Nitrogen 9 mg/dL (8-23); Calcium 8.5 mg/dL (8.5-10.5); Carbon Dioxide 25 mmol/L (22-29); Chloride 97 mmol/L (98-107); Glucose 107 mg/dL (65-115); Osmolality Calculated 277 mOsm/kg (285-295); Potassium 3.9 mmol/L (3.5-5.1); Sodium 134 mmol/L (136-145)
[2022-06-20] MEDS: sodium chloride 0.9% 500 ML 999 ML IV (23:40)
[2022-06-20] MEDS: metroNIDAZOLE IV 500 MG/100 ML PREMIX 100 MG IV (23:41)
[2022-06-20] MEDS: ciprofloxacin 400 MG/200 ML PREMIX 200 MG IV (23:41)
== END 2022-06-21 01:29 | disposition home or self-care (01) ==
PROVIDERS: Emergency Provider Physician Assistant; PCP Family Medicine
DX: L02.31 Cutaneous abscess of buttock (principal); N73.9 Female pelvic inflammatory disease, unspecified; N13.30 Unspecified hydronephrosis; Z87.891 Personal history of nicotine dependence; Z85.048 Personal history of other malignant neoplasm of rectum, rectosigmoid junction, and anus
CPT/HCPCS: 74177; 80048; 85025; 96365; 96366; 96367; 99285; J0744; J3490; J7040; Q9967

== ENCOUNTER 2022-07-20 09:58 | Oncology outpatient (recurring) (ONCR) | payer MEDICARE, MEDICAID, SELFPAY ==
[2022-07-20 10:23] LABS: Basophils % 0.5 %; Eosinophils # 0.1 10^3/uL (0.0-0.8); Eosinophils % 1.9 %; Hematocrit 39.7 % (37.0-47.0); Lymphocytes # 1.9 10^3/uL (0.8-4.8); Lymphocytes % 32.6 %; Mean Corpuscular HGB Conc 30.2 g/dL (30.0-36.0); Mean Corpuscular Hemoglobin 27.9 pg (28.0-34.0); Mean Corpuscular Volume 92.3 fl (81-99); Mean Platelet Volume 9.9 fL (7.4-10.4); Monocytes # 0.4 10^3/uL (0.2-0.9); Monocytes % 6.3 %; Neutrophils # 3.34 10^3/uL (1.8-7.7); Neutrophils % 58.5 %; Nucleated Red Blood Cells % 0 %; Platelet Count 174 10^3/cmm (130-400); Red Cell Distribution Width 17.9 % (12.1-15.1); White Blood Count 5.7 10^3/uL (4.0-10.0)
[2022-07-20 10:42] LABS: Alanine Aminotransferase 6 U/L (0-33); Albumin Level 3.7 g/dL (3.5-5.2); Alkaline Phosphatase 100 U/L (35-105); Anion Gap 14.1 (5-19); Aspartate Amino Transferase 13 U/L (0-32); Blood Urea Nitrogen 7 mg/dL (8-23); Calcium 8.6 mg/dL (8.5-10.5); Carbon Dioxide 26 mmol/L (22-29); Chloride 103 mmol/L (98-107); Globulin 2.6 g/dL (1.3-4.6); Glucose 99 mg/dL (65-115); Osmolality Calculated 286 mOsm/kg (285-295); Potassium 4.1 mmol/L (3.5-5.1); Sodium 139 mmol/L (136-145); Total Bilirubin 0.2 mg/dL (0.15-1.2); Total Protein 6.3 g/dL (6.6-8.7)
== END 2022-07-29 23:59 | disposition home or self-care (01) ==
PROVIDERS: PCP Family Medicine; Visit Provider Internal Medicine Hematology & Oncology
DX: C21.8 Malignant neoplasm of overlapping sites of rectum, anus and anal canal (principal); Z90.49 Acquired absence of other specified parts of digestive tract; C78.6 Secondary malignant neoplasm of retroperitoneum and peritoneum; C78.02 Secondary malignant neoplasm of left lung; B96.29 Other Escherichia coli [E. coli] as the cause of diseases classified elsewhere; Z79.899 Other long term (current) drug therapy; Z79.2 Long term (current) use of antibiotics
CPT/HCPCS: 80053; 85025; 99214

== ENCOUNTER 2022-08-01 10:20 | Emergency (ER) | payer MEDICARE, MEDICAID, SELFPAY ==
[2022-08-01] VITALS (8 sets, daily range): BP systolic 93–100; BP diastolic 46–59; PULSE 61–75; RESP 13–20; TEMP 36.1; O2SAT 92–97; BMI 20.3
--- NOTE | 2022-08-01 11:49 | CT_ITS ---
WS: [id number] CT ANGIOGRAPHY abdomen and pelvis. HISTORY: abd pain, known dvt upper left femoral vein, rectal cancer. TECHNIQUE: CT angiogram is performed during IV injection. Reformation images reviewed. All CT scans a t [employer] use at least one of these dose optimization techniques: automated exposure contro l; mA and/or kV adjustment per patient size (includes targeted exams where dose is matched to clinica l indication); or iterative reconstruction. CONTRAST: Omnipaque 350; 100 mL IV. DLP: 335.55 mGy.cm COMPARISON: 06/20/2022 Lung bases are clear. Normal size heart. Small hiatal hernia. Abdominal aorta: Good opacification and enhancement of the abdominal aorta. Normal opacification of t he celiac axis and SMA. There is no aneurysm. Normal renal arteries. Normal enhancement of each kidne y. JESSICA well opacified. Common iliac arteries through the internal and external iliac arteries are nor mal. Visualized liver and spleen and pancreas are unremarkable. No adrenal mass. No ascites. Portal vein a nd SMV are nonenhancing due to the early arterial phase enhancement. LEFT lower quadrant colostomy. P ercutaneous catheter noted in the soft tissue collection in the presacral space. There is continued i ncreased presacral soft tissue as noted on the prior study. Percutaneous drain has been placed since 06/20/2022. No hydronephrosis. Soft tissue stranding and edema surrounding the LEFT hip and femoral vein. As per history this is a L EFT femoral vein thrombosis. Increase in lumbar lordosis. Reidentified is mild compression fracture of L5. CT/CT angio abdomen pelvis [id number] IMPRESSION: 1. Normal enhancement abdominal aorta and the mesenteric arteries. No thrombus or occlusions. 2. LEFT lower quadrant ileostomy. 3. Extensive presacral soft tissue thickening with percutaneous drainage lloyd ter. The catheter is new since 06/02/2022. Patient has known rectal cancer. 4. No hydronephrosis. 5. Soft tissue edema and stranding surrounding the LEFT femoral vein. As per h istory patient has a known DVT.
--- NOTE | 2022-08-01 11:51 | ED_ITS ---
HPI - General Adult General: Chief complaint: General Medical Stated complaint: BC sent for bloodclot Time Seen by Provider: 08/01/22 11:19 History of Present Illness: Patient presents to the ER with complaints of worsening left lower extremity swelling and pain. Patient did go to her doctor last week for the swelling and had an ultrasound which showed an extensive DVT in the left upper leg extending down to the left lower leg. Patient also complains of left lower quadrant abdominal pain. This is the patient's second DVT. Patient was on no anticoagulation prior to this DVT. Patient is now on Eliquis. Patient does not understand why the left leg continues to swell. MD complaint: Left lower quadrant abdominal pain and worsening swelling in left lower ext Onset (ago): week(s) (About 1 week ago) Location: lower extremity Radiation: non-radiation Severity: mild Pain Consistency: constant Relieving factors: none Exacerbating factors: movement Associated symptoms: Deny chest pain, dyspnea, headache(s), nausea, rash, p alpitations or vomiting Review of Systems General: Reports: 10 or more systems reviewed and unremarkable except in HPI and below Const: Denies: fever(s) or chills Eyes: Denies: change in vision ENMT: Denies: throat pain Card: Reports: edema; Denies: chest pain, palpitations or irregular heart rhythm Resp: Denies: dyspnea, productive cough or non-productive cough GI: Reports: abdominal pain; Denies: nausea or vomiting : Denies: flank pain Musc: Denies: neck pain or back pain Skin/Breast: Denies: rash or pruritus Neuro: Denies: headache(s), numbness in extremities or weakness in extremities Psych: Denies: anxiety or depression Endo: Denies: polyuria or polydipsia Coy/Lymph: Denies: easy bruising or easy bleeding All/Imm: Denies: urticaria or throat swelling PFSH ED PFSH: Medical History Chronic cystitis 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 Maloney [place] Recurrent UTI Surgical History H/O colectomy Diverting colostomy placement History of abdominal surgery Drain placed to drain abscess for a pre sacral fluid collection - [facility]. 2021 History of appendectomy History of bilateral tubal ligation History of bladder surgery S/P ureteral stent placement Placed in August 2019 and removed in September 2019 secondary to severe intolerable discomfort. Sounds like metallic stents. Family History Family/Other No problems noted. Daughter Clotting disorder Father Lung disease Other CAD (coronary artery disease) Dementia Denies family history of Diabetes Hyperlipidemia Psychiatric illness Chronic kidney disease (CKD) Suicide Anesthesia complication Bleeding disorder Cancer Hypertension Stroke Social History Smoking and tobacco status: former smoker (smoked x 20+ years) Alcohol intake: current Alcohol intake frequency: holidays/special occasions only Alcohol type: wine Household members: family Housing: House Physical Exam Const: COMMON NORMALS: no acute distress, average body habitus, patient oriented x3, no limitations, healthy appearing, alert and well nourished HENMT: COMMON NORMALS: normocephalic, atraumatic, hearing grossly normal bilaterally, external ears normal, Normal external nose present and moist oral mucous membranes HEAD & SCALP: normocephalic and atraumatic NOSE: Normal external nose present EXTERNAL EAR: Yes external ears normal Neck/C-Spine: COMMON NORMALS: full ROM, no lymphadenopathy, supple, no JVD and Thyroid normal THYROID: Thyroid normal Chest: COMMONS NORMALS: normal inspection of the chest and normal palpation of entire chest wall Resp: COMMON NORMALS: normal respiratory effort, No retractions, No use of accessory muscles and clear to auscultation bilaterally AUSCULTATION: clear to auscultation bilaterally Cardio: COMMON NORMALS: no JVD, regular rate, regular rhythm, S1 normal heart sound present and S2 normal heart sound present RATE: regular rate RHYTHM: regular rhythm HEART SOUNDS: S1 normal heart sound present and S2 normal heart sound present GI: COMMON NORMALS: Normal to inspection, nondistended, normoactive bowel sounds present and Soft to palpation PALPATION: Yes Soft to palpation and Yes Tenderness to palpation present (GI) (Left lower quadrant near ostomy) : COMMON NORMALS: Yes no CVA tenderness BLADDER/KIDNEY EXAM: Yes no CVA tenderness Back/Pelvis: COMMON NORMALS: no CVA tenderness Extremity: NARRATIVE EXTREMITY EXAM: Left lower extremity edematous and tender to palpate Neuro: COMMON NORMALS: patient oriented x3, CN's II-XII intact bilaterally, moves all extremities and no focal motor deficits SENSORIUM/ORIENTATION: Yes alert Course Vital Signs: Vital signs: Vital Signs Temperature 96.9 F L 08/01/22 10:38 Pulse Rate 66 08/01/22 13:35 Respiratory Rate 17 08/01/22 13:35 Blood Pressure 96/59 08/01/22 14:00 Pulse Oximetry 97 08/01/22 10:38 Oxygen Delivery Me thod 08/01/22 10:43 MDM - General Adult Medical Decision Making Patient presents to the ER with complaints of worsening swelling in her lower left leg as well as lower abdominal pain. Is recently found that the patient has an extensive DVT in her left lower leg and was recently started on Eliquis. Patient states the swelling is gotten worse. Patient does have 2+ pitting edema noted to the left lower leg and foot. Lab work and CT angiogram of the abdomen pelvis was obtained. There is results were discussed with the patient. Patient is on adequate care and treatment for her DVT. Patient will be discharged to follow-up with her primary care physician in approximately 1 week. Differential Diagnosis Left lower quadrant abdominal pain, enteritis, colitis, progressing DVT Lab Data 08/01/22 12:12 08/01/22 12:12 Radiology Impressions Abdomen/Pelvis CTA 08/01/22 11:49 IMPRESSION: 1. Normal enhancement abdominal aorta and the mesenteric arteries. No thrombus or occlusions. 2. LEFT lower quadrant ileostomy. 3. Extensive presacral soft tissue thickening with percutaneous drainage catheter. The catheter is new since 06/02/2022. Patient has known rectal cancer. 4. No hydronephrosis. 5. Soft tissue edema and stranding surrounding the LEFT femoral vein. As per history patient has a known DVT. Laboratory Results WBC 5.8 10^3/uL (4.0-10.0) 08/01/22 12:12 RBC 3.93 10^6/uL (4.1-5.3) L 08/01/22 12:12 Hgb 11.1 g/dL (11.5-15.3) L 08/01/22 12:12 Hct 36.7 % (37.0-47.0) L 08/01/22 12:12 MCV 93.4 fl (81-99) 08/01/22 12:12 MCH 28.2 pg (28.0-34.0) 08/01/22 12:12 MCHC 30.2 g/dL (30.0-36.0) 08/01/22 12:12 RDW 16.7 % (12.1-15.1) H 08/01/22 12:12 Plt Count 201 10^3/cmm (130-400) 08/01/22 12:12 MPV 10.3 fL (7.4-10.4) 08/01/22 12:12 Neut % (Auto) 66.6 % 08/01/22 12:12 Lymph % (Auto) 21.7 % 08/01/22 12:12 [place] % (Auto) 6.4 % 08/01/22 12:12 Eos % (Auto) 4.3 % 08/01/22 12:12 Baso % (Auto) 0.7 % 08/01/22 12:12 Neut # (Auto) 3.86 10^3/uL (1.8-7.7) 08/01/22 12:12 Lymph # (Auto) 1.3 10^3/uL (0.8-4.8) 08/01/22 12:12 [place] # (Auto) 0.4 10^3/uL (0.2-0.9) 08/01/22 12:12 Eos # (Auto) 0.3 10^3/uL (0.0-0.8) 08/01/22 12:12 Baso # (Auto) 0.0 10^3/uL (0.0-0.1) 08/01/22 12:12 Nucleated RBC % (auto) 0 % 08/01/22 12:12 Nucleated RBCs # 0.0 /100WBC 08/01/22 12:12 PT 18.90 SECONDS (12.1-14.9) H 08/01/22 12:12 INR 1.53 (0.8-1.2) H 08/01/22 12:12 Sodium 136 mmol/L (136-145) 08/01/22 12:12 Potassium 4.2 mmol/L (3.5-5.1) 08/01/22 12:12 Chloride 100 mmol/L (98-107) 08/01/22 12:12 Carbon Dioxide 27 mmol/L (22-29) 08/01/22 12:12 Anion Gap 13.2 (5-19) 08/01/22 12:12 BUN 15 mg/dL (8-23) 08/01/22 12:12 Creatinine 0.6 mg/dL (0.5-0.9) 08/01/22 12:12 GFR Calculation 101.3 mL/min (90-130) 08/01/22 12:12 Glucose 72 mg/dL (65-115) 08/01/22 12:12 Calculated Osmolality 281 mOsm/kg (285-295) L 08/01/22 12:12 Calcium 8.8 mg/dL (8.5-10.5) 08/01/22 12:12 Total Bilirubin 0.2 mg/dL (0.15-1.2) 08/01/22 12:12 AST 19 U/L (0-32) 08/01/22 12:12 ALT 8 U/L (0-33) 08/01/22 12:12 Alkaline Phosphatase 91 U/L (35-105) 08/01/22 12:12 Total Protein 6.3 g/dL (6.6-8.7) L 08/01/22 12:12 Albumin 3.5 g/dL (3.5-5.2) 08/01/22 12:12 Globulin 2.8 g/dL (1.3-4.6) 08/01/22 12:12 Amylase 78 U/L (28-100) 08/01/22 12:12 Lipase 18 U/L (13-60) 08/01/22 12:12 Discharge Plan Discharge Patient Disposition: Home Clinical Impression: Abdominal pain, DVT (deep venous thrombosis) Condition: Stable Prescriptions: No Action morphine 15 mg tablet extended release See Rx Instructions PO Q12H PRN (Reason: Pain) Rx Instructions: 30mg every AM, 30mg every PM orally every 12 hours PRN; Stivarga 40 mg tablet 80 mg .ROUTE DAILY 21 Days Qty: 42 0RF Rx Instructions: 80 mg daily; Take for 21 days, off 7 days, out of a 28 day cycle. Repeat. oxycodone-acetaminophen [Percocet] 10-325 mg tablet 1 - 2 tab PO Q4H PRN (Reason: breakthrough pain) 30 Days Qty: 90 0RF ondansetron 8 mg tablet,disintegrating 8 mg PO Q6H PRN (Reason: Nausea And Vomiting) Qty: 90 0RF multivitamin Tablet 1 tab PO DAILY@07 promethazine 25 mg tablet 25 mg PO Q6H PRN (Reason: nausea and vomiting) Qty: 20 0RF Eliquis 5 mg tablet 5 mg PO BID levothyroxine 100 mcg tablet 100 mcg PO DAILY nivolumab 240 mg/24 mL solution 240 mg IV Q14D cholecalciferol (vitamin D3) [Vitamin D3] 25 mcg (1,000 unit) Capsule 25 mcg PO DAILY escitalopram oxalate 10 mg tablet 10 mg PO DAILY lactulose 10 gram/15 mL (15 mL) solution 20 g PO BID PRN (Reason: constipation) Qty: 750 0RF Discharge Orders: Discharge ED (Routine); Ordered 08/01/22 Ordered By: Khadar Morton Referrals: Ciera Jeff MD [Primary Care Provider] - 1 week Discharge Activity: Resume usual activity Patient Instructions: Abdominal Pain (ED), Deep Vein Thrombosis (ED), Leg Edema (ED) Coding Level of Care Code ED Speedometer Mechanic for Michael Lilly
[2022-08-01 12:28] LABS: Basophils % 0.7 %; Eosinophils # 0.3 10^3/uL (0.0-0.8); Eosinophils % 4.3 %; Hematocrit 36.7 % (37.0-47.0); Hemoglobin 11.1 g/dL (11.5-15.3); Lymphocytes # 1.3 10^3/uL (0.8-4.8); Lymphocytes % 21.7 %; Mean Corpuscular HGB Conc 30.2 g/dL (30.0-36.0); Mean Corpuscular Hemoglobin 28.2 pg (28.0-34.0); Mean Corpuscular Volume 93.4 fl (81-99); Mean Platelet Volume 10.3 fL (7.4-10.4); Monocytes # 0.4 10^3/uL (0.2-0.9); Monocytes % 6.4 %; Neutrophils # 3.86 10^3/uL (1.8-7.7); Neutrophils % 66.6 %; Nucleated Red Blood Cells % 0 %; Platelet Count 201 10^3/cmm (130-400); Red Blood Count 3.93 10^6/uL (4.1-5.3); Red Cell Distribution Width 16.7 % (12.1-15.1); White Blood Count 5.8 10^3/uL (4.0-10.0)
[2022-08-01 12:43] LABS: INR 1.53 (0.8-1.2)
[2022-08-01 12:49] LABS: Alanine Aminotransferase 8 U/L (0-33); Albumin Level 3.5 g/dL (3.5-5.2); Alkaline Phosphatase 91 U/L (35-105); Amylase 78 U/L (28-100); Blood Urea Nitrogen 15 mg/dL (8-23); Calcium 8.8 mg/dL (8.5-10.5); Carbon Dioxide 27 mmol/L (22-29); Chloride 100 mmol/L (98-107); Globulin 2.8 g/dL (1.3-4.6); Glomerular Filtration Rate 101.3 mL/min (90-130); Glucose 72 mg/dL (65-115); Lipase 18 U/L (13-60); Osmolality Calculated 281 mOsm/kg (285-295); Sodium 136 mmol/L (136-145); Total Bilirubin 0.2 mg/dL (0.15-1.2); Total Protein 6.3 g/dL (6.6-8.7)
[2022-08-01 12:51] LABS: Anion Gap 13.2 (5-19); Aspartate Amino Transferase 19 U/L (0-32); Potassium 4.2 mmol/L (3.5-5.1)
[2022-08-01] MEDS: iohexol 350 mg/mL 500 mL Btl (per mL) IV (14:17)
== END 2022-08-01 16:50 | disposition home or self-care (01) ==
PROVIDERS: Emergency Provider Emergency Medicine; PCP Family Medicine
DX: I82.402 Acute embolism and thrombosis of unspecified deep veins of left lower extremity (principal); R10.32 Left lower quadrant pain; Z79.01 Long term (current) use of anticoagulants; Z87.891 Personal history of nicotine dependence; Z85.048 Personal history of other malignant neoplasm of rectum, rectosigmoid junction, and anus
CPT/HCPCS: 74174; 80053; 82150; 83690; 85025; 85610; 99285; Q9967

== ENCOUNTER 2022-08-22 11:28 | Oncology outpatient (recurring) (ONCR) | payer MEDICARE, MEDICAID, SELFPAY ==
[2022-08-22 12:01] VITALS: BMI 21.9
[2022-08-22 12:03] LABS: Basophils % 0.3 %; Eosinophils # 0.1 10^3/uL (0.0-0.8); Hematocrit 37.5 % (37.0-47.0); Hemoglobin 11.5 g/dL (11.5-15.3); Lymphocytes # 1.9 10^3/uL (0.8-4.8); Lymphocytes % 31.1 %; Mean Corpuscular HGB Conc 30.7 g/dL (30.0-36.0); Mean Corpuscular Hemoglobin 27.8 pg (28.0-34.0); Mean Corpuscular Volume 90.8 fl (81-99); Mean Platelet Volume 9.6 fL (7.4-10.4); Monocytes # 0.4 10^3/uL (0.2-0.9); Neutrophils # 3.63 10^3/uL (1.8-7.7); Neutrophils % 60.6 %; Nucleated Red Blood Cells % 0 %; Platelet Count 204 10^3/cmm (130-400); Red Blood Count 4.13 10^6/uL (4.1-5.3); Red Cell Distribution Width 16.1 % (12.1-15.1)
[2022-08-22 12:10] VITALS: BP 103/60; PULSE 69; RESP 16; TEMP 36.8; O2SAT 99
[2022-08-22 12:32] LABS: Carcinoembryonic Antigen 1.9 ng/mL (0.0-4.7)
[2022-08-22 12:44] LABS: Alanine Aminotransferase 8 U/L (0-33); Albumin Level 3.9 g/dL (3.5-5.2); Alkaline Phosphatase 104 U/L (35-105); Aspartate Amino Transferase 13 U/L (0-32); Blood Urea Nitrogen 7 mg/dL (8-23); Calcium 8.6 mg/dL (8.5-10.5); Carbon Dioxide 27 mmol/L (22-29); Chloride 102 mmol/L (98-107); Creatinine Clr Calc Pharmacy 82.1094; Globulin 2.4 g/dL (1.3-4.6); Glomerular Filtration Rate 84.8 mL/min (90-130); Glucose 90 mg/dL (65-115); Osmolality Calculated 284 mOsm/kg (285-295); Sodium 138 mmol/L (136-145); Total Bilirubin 0.3 mg/dL (0.15-1.2); Total Protein 6.3 g/dL (6.6-8.7)
== END 2022-08-28 23:59 | disposition home or self-care (01) ==
PROVIDERS: Nurse Practitioner; PCP Family Medicine; Visit Provider Internal Medicine Hematology & Oncology
DX: C21.8 Malignant neoplasm of overlapping sites of rectum, anus and anal canal (principal); Z90.49 Acquired absence of other specified parts of digestive tract; C78.6 Secondary malignant neoplasm of retroperitoneum and peritoneum; C78.02 Secondary malignant neoplasm of left lung; B96.29 Other Escherichia coli [E. coli] as the cause of diseases classified elsewhere; Z79.2 Long term (current) use of antibiotics; Z79.899 Other long term (current) drug therapy
CPT/HCPCS: 80053; 82378; 85025; 99214

== ENCOUNTER 2022-10-18 12:32 | Oncology outpatient (recurring) (ONCR) | payer MEDICARE, MEDICAID, SELFPAY ==
[2022-10-18 12:39] VITALS: BP 123/76; PULSE 71; RESP 18; TEMP 36.7; O2SAT 98
[2022-10-18 12:57] LABS: Basophils % 0.7 %; Eosinophils # 0.1 10^3/uL (0.0-0.8); Eosinophils % 1.6 %; Hematocrit 41.2 % (37.0-47.0); Hemoglobin 12.9 g/dL (11.5-15.3); Lymphocytes # 1.8 10^3/uL (0.8-4.8); Mean Corpuscular HGB Conc 31.3 g/dL (30.0-36.0); Mean Corpuscular Hemoglobin 28.2 pg (28.0-34.0); Mean Platelet Volume 10.4 fL (7.4-10.4); Monocytes # 0.3 10^3/uL (0.2-0.9); Monocytes % 5.5 %; Neutrophils # 3.47 10^3/uL (1.8-7.7); Nucleated Red Blood Cells % 0 %; Platelet Count 212 10^3/cmm (130-400); Red Blood Count 4.58 10^6/uL (4.1-5.3); Red Cell Distribution Width 16.1 % (12.1-15.1); White Blood Count 5.7 10^3/uL (4.0-10.0)
[2022-10-18 13:28] LABS: Carcinoembryonic Antigen 2.2 ng/mL (0.0-4.7)
[2022-10-18 13:39] LABS: Alanine Aminotransferase 18 U/L (0-33); Alkaline Phosphatase 131 U/L (35-105); Anion Gap 16.3 (5-19); Aspartate Amino Transferase 23 U/L (0-32); Blood Urea Nitrogen 11 mg/dL (8-23); Carbon Dioxide 27 mmol/L (22-29); Chloride 102 mmol/L (98-107); Globulin 2.7 g/dL (1.3-4.6); Glomerular Filtration Rate 84.8 mL/min (90-130); Glucose 79 mg/dL (65-115); Osmolality Calculated 290 mOsm/kg (285-295); Potassium 4.3 mmol/L (3.5-5.1); Sodium 141 mmol/L (136-145); Total Bilirubin 0.3 mg/dL (0.15-1.2); Total Protein 6.7 g/dL (6.6-8.7)
== END 2022-10-28 23:59 | disposition home or self-care (01) ==
PROVIDERS: PCP Family Medicine; Visit Provider Internal Medicine Hematology & Oncology
DX: C21.8 Malignant neoplasm of overlapping sites of rectum, anus and anal canal (principal); C20 Malignant neoplasm of rectum
CPT/HCPCS: 36591; 80053; 82378; 85025; 99214; J1642

== ENCOUNTER 2022-11-10 12:46 | Outpatient (CLI) | payer MEDICARE, MEDICAID, SELFPAY ==
--- NOTE | 2022-11-10 13:03 | MM_ITS ---
WS: [id number] BILATERAL 3D TOMOSYNTHESIS DIGITAL SCREENING MAMMOGRAPHY WITH CAD CLINICAL INFORMATION: SCREENING HISTORY: Screening mammogram. No current complaints. COMPARISON: 2019 TECHNIQUE: Bilateral CC and MLO views. FINDINGS: The breasts are composed of heterogeneous fibroglandular density tissue, which can limit the detectio n of small underlying mass lesions. No suspicious mass, asymmetry, calcifications, or architectural d istortion. No evidence of malignancy. Vascular calcification. Punctate and lucent centered calcificat ions. MM/[place] [id number] IMPRESSION: BI-RADS: 2-Benign FOLLOW UP: 1 Year Follow-up Recommend return to annual screening mammography.
== END 2022-11-10 12:47 | disposition home or self-care (01) ==
PROVIDERS: PCP Family Medicine; Visit Provider Family Medicine
DX: Z12.31 Encounter for screening mammogram for malignant neoplasm of breast (principal)
CPT/HCPCS: 77063; 77067

== ENCOUNTER 2022-11-14 15:00 | Oncology outpatient (recurring) (ONCR) | payer MEDICARE, MEDICAID, SELFPAY ==
[2022-11-14 15:02] VITALS: BP 107/73; PULSE 91; RESP 18; TEMP 36.8; O2SAT 98
== END 2022-11-28 23:59 | disposition home or self-care (01) ==
PROVIDERS: PCP Family Medicine; Visit Provider Internal Medicine Hematology & Oncology
DX: Z45.2 Encounter for adjustment and management of vascular access device (principal)
CPT/HCPCS: 96523; J1642

== ENCOUNTER 2023-01-02 13:01 | Outpatient (CLI) | payer MEDICARE, MEDICAID, SELFPAY ==
--- NOTE | 2023-01-02 | USR_ITS ---
PROCEDURE INFORMATION: Exam: US Duplex Right Lower Extremity Veins, Limited Exam date and time: 01/02/2023 1:22 PM Age: 62 years old Clinical indication: Pain; Leg, lower; Right; Additional info: RT leg pain and edema TECHNIQUE: Imaging protocol: Real-time duplex ultrasound of the right extremity with 2-D guevara scale, color Doppler flow and spectral waveform analysis including responses to compression and other maneuvers (when performed) with image documentation. Limited exam was focused on the right lower extremity veins. COMPARISON: CT abdomen pelvis w con* [id number] 06/20/2022 9:29 PM FINDINGS: Right deep veins: Unremarkable. The common femoral, femoral, proximal profunda femoral and popliteal veins are patent without thrombus. Normal Doppler waveforms. Normal compressibility and/or augmentation response. Interrogated peroneal and posterior tibial veins are also patent. Superficial veins: Unremarkable. Saphenofemoral junction is patent without thrombus. Soft tissues: Unremarkable. US/[place] [id number] IMPRESSION: No evidence of deep vein thrombosis.
== END 2023-01-02 13:02 | disposition home or self-care (01) ==
PROVIDERS: PCP Family Medicine; Visit Provider Registered Nurse Neonatal Intensive Care
DX: R22.33 Localized swelling, mass and lump, upper limb, bilateral (principal); M79.661 Pain in right lower leg; R60.9 Edema, unspecified
CPT/HCPCS: 93971

== ENCOUNTER 2023-01-10 12:55 | Oncology outpatient (recurring) (ONCR) | payer MEDICARE, MEDICAID, SELFPAY ==
[2023-01-10 13:06] VITALS: BMI 26.2
[2023-01-10 13:07] VITALS: BP 100/66; PULSE 73; RESP 18; TEMP 36.2; O2SAT 96
[2023-01-10 13:19] LABS: Basophils % 0.8 %; Eosinophils # 0.3 10^3/uL (0.0-0.8); Eosinophils % 5.6 %; Hematocrit 41.7 % (36-47); Lymphocytes # 1.4 10^3/uL (0.8-4.8); Mean Corpuscular HGB Conc 32.4 g/dL (30-55); Mean Corpuscular Hemoglobin 30.3 pg (27-33); Mean Corpuscular Volume 93.5 fl (85-98); Mean Platelet Volume 10.4 fL (7.4-10.4); Monocytes # 0.4 10^3/uL (0.2-0.9); Monocytes % 7.1 %; Neutrophils # 3.07 10^3/uL (1.8-7.7); Neutrophils % 59.1 %; Nucleated Red Blood Cells % 0 %; Platelet Count 166 10^3/cmm (157-399); Red Blood Count 4.46 10^6/uL (3.85-5.65); Red Cell Distribution Width 14.6 % (12.1-15.1); White Blood Count 5.19 10^3/uL (3.29-11.43)
[2023-01-10 13:46] LABS: Carcinoembryonic Antigen 2.6 ng/mL (0.0-4.7)
[2023-01-10 13:57] LABS: Alanine Aminotransferase 44 U/L (0-33); Albumin Level 4.2 g/dL (3.5-5.2); Alkaline Phosphatase 131 U/L (35-105); Anion Gap 12.8 (5-19); Aspartate Amino Transferase 38 U/L (0-32); Blood Urea Nitrogen 11 mg/dL (8-23); Calcium 9.1 mg/dL (8.5-10.5); Carbon Dioxide 30 mmol/L (22-29); Chloride 100 mmol/L (98-107); Globulin 2.3 g/dL (1.3-4.6); Glomerular Filtration Rate 84.8 mL/min (90-130); Glucose 117 mg/dL (65-115); Osmolality Calculated 288 mOsm/kg (285-295); Potassium 3.8 mmol/L (3.5-5.1); Sodium 139 mmol/L (136-145); Total Bilirubin 0.3 mg/dL (0.15-1.2); Total Protein 6.5 g/dL (6.6-8.7)
== END 2023-01-28 23:59 | disposition home or self-care (01) ==
PROVIDERS: Nurse Practitioner Family; PCP Family Medicine; Visit Provider Internal Medicine Hematology & Oncology
DX: C20 Malignant neoplasm of rectum
CPT/HCPCS: 36591; 80053; 82378; 85025; 99213; J1642

== ENCOUNTER 2023-02-07 12:58 | Oncology outpatient (recurring) (ONCR) | payer MEDICARE, MEDICAID, SELFPAY ==
[2023-02-07 13:09] VITALS: BP 121/68; PULSE 54; RESP 16; TEMP 36.7
== END 2023-02-28 23:59 | disposition home or self-care (01) ==
LOC: ONCMED 12:58
PROVIDERS: Internal Medicine Medical Oncology; PCP Family Medicine; Visit Provider Internal Medicine Hematology & Oncology
DX: K57.80 Diverticulitis of intestine, part unspecified, with perforation and abscess without bleeding
CPT/HCPCS: 36591; 85610; J1642

== ENCOUNTER 2023-04-25 18:04 | Emergency (ER) | payer MEDICARE, MEDICAID, SELFPAY ==
--- NOTE | 2023-04-25 18:06 | USR_ITS ---
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 Limited exam was focused on the right lower extremity veins. COMPARISON: CT angio abdomen pelvis [id number] 08/01/2022 2:08 PM FINDINGS: Right deep veins: Unremarkable. The common femoral, femoral, proximal profunda femoral, popliteal, posterior tibial and peroneal veins are patent without thrombus. Normal Doppler waveforms. Normal compressibility and/or augmentation response. Superficial veins: Unremarkable. Saphenofemoral junction is patent without thrombus. Soft tissues: Diffuse subcutaneous edema. 6.3 x 1.8 x 5.2 cm complex collection along the medial aspect of the proximal thigh, concerning for abscess. US/[place] [id number] IMPRESSION: 1. No sonographic evidence of deep vein thrombosis. 2. 6.3 x 1.8 x 5.2 cm complex collection along the medial aspect of the proximal thigh, concerning for abscess.
[2023-04-25 18:16] VITALS: BP 166/62; PULSE 85; RESP 16; TEMP 37.1; O2SAT 93; BMI 29.4
--- NOTE | 2023-04-25 18:32 | ED_ITS ---
Documented by User: ALEXANDER Leroy 04/25/23 21:49 HPI - Extremity Problem 2 General: Chief complaint: Extremity Problem,Nontraumatic Stated complaint: 4 weeks post op/ rt leg pain Time Seen by Provider: 04/25/23 18:21 Source: patient Mode of arrival: wheelchair Limitations: no limitations History of Present Illness: Patient is a very nice 63-year-old female with an extensive past medical history involving abdominal malignancy that she has been battling for years. She states she follows with the team at [facility]. She states approximately a month ago she underwent right inguinal lymphadenectomy. She subsequently had a JERI drain following that surgery. She states because of output she has not been able to have drain removed. She states over the past several days she has began noticing worsening swelling, redness, heat to her right inguinal region and thigh and noted fevers as high as 101 today. MD Complaint: extremity pain and extremity swelling Onset (ago): day(s) Pain Consistency: constant Location: right and lower extremity Radiation: none Relieving factors: nothing Exacerbating factors: range of motion, walking and palpation Associated symptoms: Reports no associated symptoms and fever(s); Deny chest pain Context: recent surgery/procedure Review of Systems 2 Const: Reports: fever(s); Denies: chills, body aches, fatigue or malaise Card: Denies: chest pain Resp: Denies: dyspnea Musc: Reports: extremity pain and extremity swelling; Denies: neck pain, back pain, joint pain or joint swelling Neuro: Denies: numbness in extremities, weakness in extremities or sensory changes PFSH ED 2 PFSH: Medical History Chronic cystitis Recurrent UTI Duplicated ureter, right Hydronephrosis Bilateral in concert with rectal carcinoma treated with chemotherapy radiation therapy and pending surgical removal Colostomy in place Perforated diverticulum Rectal cancer Sees Dr. Haider Espino Louis Gout Mitral valve prolapse Surgical History History of abdominal surgery Drain placed to drain abscess for a pre sacral fluid collection - [facility]. 2021 H/O colectomy Diverting colostomy placement S/P ureteral stent placement Placed in August 2019 and removed in September 2019 secondary to severe intolerable discomfort. Sounds like metallic stents. History of bladder surgery History of appendectomy History of bilateral tubal ligation Family History Family/Other No problems noted. Daughter Clotting disorder Father Lung disease Other CAD (coronary artery disease) Dementia Denies family history of Diabetes Hyperlipidemia Psychiatric illness Chronic kidney disease (CKD) Suicide Anesthesia complication Bleeding disorder Cancer Hypertension Stroke Social History Smoking and tobacco/nicotine status: former use of tobacco/nicotine (smoked x 20+ years) Quit status (tobacco/nicotine): has quit using Year quit tobacco: 2006 Former quit date comment: smoked 20+ years Alcohol intake: current Alcohol intake frequency: holidays/special occasions only Alcohol type: wine Substance/Drug Use: never Household members: family Housing: House Physical Exam 2 Const: COMMON NORMALS: average body habitus, patient oriented x3, no limitations, healthy appearing, alert and well nourished GENERAL APPEARANCE: cooperative, well developed and in distress (appears uncomfortable with any movement of her leg) ORIENTATION/CONSCIOUSNESS: Yes awake, Yes oriented to person, Yes oriented to place and Yes oriented to time Resp: COMMON NORMALS: normal respiratory effort and clear to auscultation bilaterally AUSCULTATION: clear to auscultation bilaterally Cardio: COMMON NORMALS: regular rate and regular rhythm RATE: regular rate RHYTHM: regular rhythm Extremity: COMMON NORMALS: capillary refill normal, no clubbing, cyanosis or edema, no calf tenderness and no pedal edema GENERAL: Yes normal exam except as noted RIGHT LOWER EXTREMITY: Yes hip joint and Yes upper leg OTHER: Patient with lymphadenectomy site to her right inguinal region with intact JERI drain. Site appears very edematous and erythematous with overlying warmth. No other drainage noted at this time other than the bloody serosanguineous fluid noted in her JERI drain bulb. She is exquisitely tender. No obvious underlying fluctuance. Neuro: COMMON NORMALS: patient oriented x3 SENSORIUM/ORIENTATION: Yes alert, Yes oriented to person, Yes oriented to place and Yes oriented to time Course 2 Consultations: Consultation #1: Dr. Cano physician hospice care consultant for Dr. Valentin's group-recommends transfer/agrees with IV vancomycin ordered here Vital Signs: Vital signs: Vital Signs Temperature 98.7 F 04/25/23 18:16 Pulse Rate 19 L 04/26/23 08:49 Respiratory Rate 19 H 04/26/23 08:11 Blood Pressure 97/51 04/26/23 08:49 Pulse Oximetry 93 04/26/23 08:49 Oxygen Delivery Me thod Room Air 04/26/23 08:11 MDM - Extremity (Nontraumatic) Medical Decision Making Patient here for a large 8 cm abscess to her lymphadenectomy surgical site. Patient will be transferred back to [place] for drainage. I spoke to Dr. Bustillo who was on-call for patient's surgeons (Dr. Valentin's) group who accepts admission. She was started on IV Vancomycin here. Dr. Shen aware of patient and agrees with need for transfer. Lab Data 04/25/23 18:51 04/25/23 18:51 Radiology Impressions Venous Duplex 04/25/23 18:06 IMPRESSION: 1. No sonographic evidence of deep vein thrombosis. 2. 6.3 x 1.8 x 5.2 cm complex collection along the medial aspect of the proximal thigh, concerning for abscess. Pelvis CT 04/25/23 18:33 IMPRESSION: 1. There is a rim enhancing fluid collection in the right anterior thigh measuring 8.2 cm maximal diameter. A surgical drain passes through this collection and may be occluded. Regional edema is also noted in the anterior thigh with edema of the rectus femoris. 2. Bilateral sacral insufficiency fractures are unchanged. Laboratory Results WBC 8.92 10^3/uL (3.29-11.43) 04/25/23 18:51 RBC 4.06 10^6/uL (3.85-5.65) 04/25/23 18:51 Hgb 12.90 g/dL (11.27-16.99) 04/25/23 18:51 Hct 38.3 % (36-47) 04/25/23 18:51 MCV 94.3 fl (85-98) 04/25/23 18:51 MCH 31.8 pg (27-33) 04/25/23 18:51 MCHC 33.7 g/dL (30-55) 04/25/23 18:51 RDW 13.6 % (12.1-15.1) 04/25/23 18:51 Plt Count 130 10^3/cmm (157-399) L 04/25/23 18:51 MPV 10.8 fL (7.4-10.4) H 04/25/23 18:51 Neut % (Auto) 80.7 % 04/25/23 18:51 Lymph % (Auto) 10.9 % 04/25/23 18:51 [place] % (Auto) 7.5 % 04/25/23 18:51 Eos % (Auto) 0.4 % 04/25/23 18:51 Baso % (Auto) 0.2 % 04/25/23 18:51 Neut # (Auto) 7.19 10^3/uL (1.8-7.7) 04/25/23 18:51 Lymph # (Auto) 1.0 10^3/uL (0.8-4.8) 04/25/23 18:51 [place] # (Auto) 0.7 10^3/uL (0.2-0.9) 04/25/23 18:51 Eos # (Auto) 0.0 10^3/uL (0.0-0.8) 04/25/23 18:51 Baso # (Auto) 0.0 10^3/uL (0.0-0.1) 04/25/23 18:51 Nucleated RBC % (auto) 0 % 04/25/23 18:51 Nucleated RBCs # 0.0 /100WBC 04/25/23 18:51 ESR 9 mm/hr (0-15) 04/25/23 18:51 Sodium 138 mmol/L (136-145) 04/25/23 18:51 Potassium 3.6 mmol/L (3.5-5.1) 04/25/23 18:51 Chloride 100 mmol/L (98-107) 04/25/23 18:51 Carbon Dioxide 26 mmol/L (22-29) 04/25/23 18:51 Anion Gap 15.6 (5-19) 04/25/23 18:51 BUN 9 mg/dL (8-23) 04/25/23 18:51 Creatinine 0.7 mg/dL (0.5-0.9) 04/25/23 18:51 GFR Calculation 84.5 mL/min (90-130) L 04/25/23 18:51 Glucose 113 mg/dL (65-115) 04/25/23 18:51 Calculated Osmolality 285 mOsm/kg (285-295) 04/25/23 18:51 Lactic Acid 0.8 mmol/L (0.5-2.2) 04/25/23 18:51 Calcium 8.6 mg/dL (8.5-10.5) 04/25/23 18:51 Total Bilirubin 0.6 mg/dL (0.15-1.2) 04/25/23 18:51 AST 18 U/L (0-32) 04/25/23 18:51 ALT 12 U/L (0-33) 04/25/23 18:51 Alkaline Phosphatase 119 U/L (35-105) H 04/25/23 18:51 C-Reactive Protein 62.8 mg/L (0.0-4.9) H 04/25/23 18:51 Total Protein 6.3 g/dL (6.6-8.7) L 04/25/23 18:51 Albumin 3.8 g/dL (3.5-5.2) 04/25/23 18:51 Globulin 2.5 g/dL (1.3-4.6) 04/25/23 18:51 SARS-CoV-2 Ag (Rapid) negative (Negative) 04/25/23 22:13 Discharge Plan Discharge Patient Disposition: Xfer Short-Term Hosp Clinical Impression: Postoperative abscess Condition: Stable Referrals: Ciera Jeff MD [Primary Care Provider] - Coding Level of Care Code ED Hematology Specialist for Chg Fwd Documented by User: Elias Shen MD 04/26/23 10:10 HPI - Extremity Problem 2 General: Chief complaint: Extremity Problem,Nontraumatic Stated complaint: 4 weeks post op/ rt leg pain Time Seen by Provider: 04/25/23 18:21 PFSH ED 2 PFSH: Medical History Chronic cystitis Recurrent UTI Duplicated ureter, right Hydronephrosis Bilateral in concert with rectal carcinoma treated with chemotherapy radiation therapy and pending surgical removal Colostomy in place Perforated diverticulum Rectal cancer Sees Dr. Maloney Carmel Gout Mitral valve prolapse Surgical History History of abdominal surgery Drain placed to drain abscess for a pre sacral fluid collection - [facility]. 2021 H/O colectomy Diverting colostomy placement S/P ureteral stent placement Placed in August 2019 and removed in September 2019 secondary to severe intolerable discomfort. Sounds like metallic stents. History of bladder surgery History of appendectomy History of bilateral tubal ligation Family History Family/Other No problems noted. Daughter Clotting disorder Father Lung disease Other CAD (coronary artery disease) Dementia Denies family history of Diabetes Hyperlipidemia Psychiatric illness Chronic kidney disease (CKD) Suicide Anesthesia complication Bleeding disorder Cancer Hypertension Stroke Social History Smoking and tobacco/nicotine status: former use of tobacco/nicotine (smoked x 20+ years) Quit status (tobacco/nicotine): has quit using Year quit tobacco: 2006 Former quit date comment: smoked 20+ years Alcohol intake: current Alcohol intake frequency: holidays/special occasions only Alcohol type: wine Substance/Drug Use: never Household members: family Housing: House Course 2 Vital Signs: Vital signs: Vital Signs Temperature 98.7 F 04/25/23 18:16 Pulse Rate 19 L 04/26/23 08:49 Respiratory Rate 19 H 04/26/23 08:11 Blood Pressure 97/51 04/26/23 08:49 Pulse Oximetry 93 04/26/23 08:49 Oxygen Delivery Me thod Room Air 04/26/23 08:11 MDM - Extremity (Nontraumatic) Lab Data 04/25/23 18:51 04/25/23 18:51 Radiology Impressions Venous Duplex 04/25/23 18:06 IMPRESSION: 1. No sonographic evidence of deep vein thrombosis. 2. 6.3 x 1.8 x 5.2 cm complex collection along the medial aspect of the proximal thigh, concerning for abscess. Pelvis CT 04/25/23 18:33 IMPRESSION: 1. There is a rim enhancing fluid collection in the right anterior thigh measuring 8.2 cm maximal diameter. A surgical drain passes through this collection and may be occluded. Regional edema is also noted in the anterior thigh with edema of the rectus femoris. 2. Bilateral sacral insufficiency fractures are unchanged. Laboratory Results WBC 8.92 10^3/uL (3.29-11.43) 04/25/23 18:51 RBC 4.06 10^6/uL (3.85-5.65) 04/25/23 18:51 Hgb 12.90 g/dL (11.27-16.99) 04/25/23 18:51 Hct 38.3 % (36-47) 04/25/23 18:51 MCV 94.3 fl (85-98) 04/25/23 18:51 MCH 31.8 pg (27-33) 04/25/23 18:51 MCHC 33.7 g/dL (30-55) 04/25/23 18:51 RDW 13.6 % (12.1-15.1) 04/25/23 18:51 Plt Count 130 10^3/cmm (157-399) L 04/25/23 18:51 MPV 10.8 fL (7.4-10.4) H 04/25/23 18:51 Neut % (Auto) 80.7 % 04/25/23 18:51 Lymph % (Auto) 10.9 % 04/25/23 18:51 [place] % (Auto) 7.5 % 04/25/23 18:51 Eos % (Auto) 0.4 % 04/25/23 18:51 Baso % (Auto) 0.2 % 04/25/23 18:51 Neut # (Auto) 7.19 10^3/uL (1.8-7.7) 04/25/23 18:51 Lymph # (Auto) 1.0 10^3/uL (0.8-4.8) 04/25/23 18:51 [place] # (Auto) 0.7 10^3/uL (0.2-0.9) 04/25/23 18:51 Eos # (Auto) 0.0 10^3/uL (0.0-0.8) 04/25/23 18:51 Baso # (Auto) 0.0 10^3/uL (0.0-0.1) 04/25/23 18:51 Nucleated RBC % (auto) 0 % 04/25/23 18:51 Nucleated RBCs # 0.0 /100WBC 04/25/23 18:51 ESR 9 mm/hr (0-15) 04/25/23 18:51 Sodium 138 mmol/L (136-145) 04/25/23 18:51 Potassium 3.6 mmol/L (3.5-5.1) 04/25/23 18:51 Chloride 100 mmol/L (98-107) 04/25/23 18:51 Carbon Dioxide 26 mmol/L (22-29) 04/25/23 18:51 Anion Gap 15.6 (5-19) 04/25/23 18:51 BUN 9 mg/dL (8-23) 04/25/23 18:51 Creatinine 0.7 mg/dL (0.5-0.9) 04/25/23 18:51 GFR Calculation 84.5 mL/min (90-130) L 04/25/23 18:51 Glucose 113 mg/dL (65-115) 04/25/23 18:51 Calculated Osmolality 285 mOsm/kg (285-295) 04/25/23 18:51 Lactic Acid 0.8 mmol/L (0.5-2.2) 04/25/23 18:51 Calcium 8.6 mg/dL (8.5-10.5) 04/25/23 18:51 Total Bilirubin 0.6 mg/dL (0.15-1.2) 04/25/23 18:51 AST 18 U/L (0-32) 04/25/23 18:51 ALT 12 U/L (0-33) 04/25/23 18:51 Alkaline Phosphatase 119 U/L (35-105) H 04/25/23 18:51 C-Reactive Protein 62.8 mg/L (0.0-4.9) H 04/25/23 18:51 Total Protein 6.3 g/dL (6.6-8.7) L 04/25/23 18:51 Albumin 3.8 g/dL (3.5-5.2) 04/25/23 18:51 Globulin 2.5 g/dL (1.3-4.6) 04/25/23 18:51 SARS-CoV-2 Ag (Rapid) negative (Negative) 04/25/23 22:13 All radiology interpretation(s) finalized by discharge Discharge Plan Discharge Patient Disposition: Xfer Short-Term Hosp Clinical Impression: Postoperative abscess Condition: Stable Referrals: Ciera Jeff MD [Primary Care Provider] - Coding Level of Care Code ED Hematology Specialist for Michael Lilly
--- NOTE | 2023-04-25 18:33 | CTR_ITS ---
PROCEDURE INFORMATION: Exam: CT Pelvis With Contrast Exam date and time: 04/25/2023 8:16 PM Age: 63 years old Clinical indication: Other: Infection right groin; Prior surgery; Surgery date: <1 month; Surgery type: Lymph nodes removed March 29, surgical drain in top of right thrigh with redness, swelling, and pain, HX colon cancer; Additional info: R inguinal/thigh infection sp lymphadenectomy TECHNIQUE: Imaging protocol: Computed tomography of the pelvis with contrast. Radiation optimization: All CT scans at this facility use at least one of these dose optimization techniques: automated exposure control; mA and/or kV adjustment per patient size (includes targeted exams where dose is matched to clinical indication); or iterative reconstruction. Contrast material: OMNI 350; Contrast volume: 90 ml; Contrast route: INTRAVENOUS (IV); REPORTING DATA: Count of CT and Cardiac NM exams in prior 12 months: This patient has received 3 known CTs and 0 known cardiac nuclear medicine studies in the 12 months prior to the current study. COMPARISON: CT angio abdomen pelvis [id number] 08/01/2022 2:08 PM RADIATION DOSE METRICS: Total DLP (mGy-cm): 679.51 FINDINGS: Kidneys and ureters: Visualized portions of the kidneys are normal with partial duplication of the right ureter noted. Stomach and bowel: Patent ileocolic anastomosis. Left lower quadrant end colostomy. Abdominal peroneal resection changes noted. Appendix: Prior appendectomy. Intraperitoneal space: No free fluid or free air. Vasculature: Bilateral femoral veins are patent without evidence of acute DVT. Lymph nodes: Unremarkable. No enlarged lymph nodes. Urinary bladder: Normal. No mass. Reproductive: Uterus is partly obscured by presacral soft tissue thickening. Bones/joints: Subjective bony demineralization. Chronic appearing bilateral sacral insufficiency fractures, similar in morphology to prior exam. Stable L5 superior endplate deformity. No evidence of acute fracture or destructive bony lesion. Soft tissues: There has been a decrease in volume of presacral soft tissue thickening and edema, and the previously seen pigtail catheter in the posterior pelvis has been removed. There are changes of interval surgical procedure in the right inguinal region. There is a right inguinal drain in place which tracks into a rim-enhancing serpiginous fluid collection, largest component of which measures 8.2 x 3.6 x 2.1 cm. No soft tissue gas, but there is edema in the right anterior thigh and edema of the rectus femora as. No perineal/perianal abscess or inflammation. CT/CT pelvis w con* [id number] IMPRESSION: 1. There is a rim enhancing fluid collection in the right anterior thigh measuring 8.2 cm maximal diameter. A surgical drain passes through this collection and may be occluded. Regional edema is also noted in the anterior thigh with edema of the rectus femoris. 2. Bilateral sacral insufficiency fractures are unchanged.
[2023-04-25 18:48] VITALS: PULSE 86; RESP 21
[2023-04-25 19:06] VITALS: RESP 18; O2SAT 96
[2023-04-25] MEDS: morphine 4 mg/mL SDV 1 mL IVP (19:06)
[2023-04-25] MEDS: ondansetron 2 mg/ML SDV 2 mL 4 MG IVP ×2 (19:07→21:09)
[2023-04-25 19:14] VITALS: PULSE 87; RESP 20; O2SAT 100
[2023-04-25 19:36] LABS: Basophils % 0.2 %; Eosinophils % 0.4 %; Hematocrit 38.3 % (36-47); Lymphocytes % 10.9 %; Mean Corpuscular HGB Conc 33.7 g/dL (30-55); Mean Corpuscular Hemoglobin 31.8 pg (27-33); Mean Corpuscular Volume 94.3 fl (85-98); Mean Platelet Volume 10.8 fL (7.4-10.4); Monocytes # 0.7 10^3/uL (0.2-0.9); Monocytes % 7.5 %; Neutrophils # 7.19 10^3/uL (1.8-7.7); Neutrophils % 80.7 %; Nucleated Red Blood Cells % 0 %; Platelet Count 130 10^3/cmm (157-399); Red Blood Count 4.06 10^6/uL (3.85-5.65); Red Cell Distribution Width 13.6 % (12.1-15.1); White Blood Count 8.92 10^3/uL (3.29-11.43)
[2023-04-25 19:45] LABS: Alanine Aminotransferase 12 U/L (0-33); Albumin Level 3.8 g/dL (3.5-5.2); Alkaline Phosphatase 119 U/L (35-105); Anion Gap 15.6 (5-19); Aspartate Amino Transferase 18 U/L (0-32); Blood Urea Nitrogen 9 mg/dL (8-23); C Reactive Protein 62.8 mg/L (0.0-4.9); Calcium 8.6 mg/dL (8.5-10.5); Carbon Dioxide 26 mmol/L (22-29); Chloride 100 mmol/L (98-107); Creatinine Clr Calc Pharmacy 92.2923; Erythrocyte Sedimentation Rate 9 mm/hr (0-15); Globulin 2.5 g/dL (1.3-4.6); Glomerular Filtration Rate 84.5 mL/min (90-130); Glucose 113 mg/dL (65-115); Osmolality Calculated 285 mOsm/kg (285-295); Potassium 3.6 mmol/L (3.5-5.1); Sodium 138 mmol/L (136-145); Total Bilirubin 0.6 mg/dL (0.15-1.2); Total Protein 6.3 g/dL (6.6-8.7)
[2023-04-25 19:46] LABS: Lactic Sepsis W/Reflex 0.8 mmol/L (0.5-2.2)
[2023-04-25] MEDS: iohexol 350 mg/mL 500 mL Btl (per mL) IV (20:22)
[2023-04-25] MEDS: vancomycin 1,000 MG in sodium chloride 0.9% 250 ML 250 MG IV (22:20)
[2023-04-25 22:50] VITALS: BP 99/54; PULSE 94; O2SAT 89
[2023-04-25 23:27] LABS: SARS Covid-2 Antigen negative (Negative)
[2023-04-26] VITALS (12 sets, daily range): BP systolic 94–122; BP diastolic 51–97; PULSE 19–107; RESP 19; O2SAT 90–97
[2023-04-26] MEDS: sodium chloride 0.9% 1,000 ML 999 ML IV (00:12)
--- NOTE | 2023-04-26 02:55 | PC.NURSE ---
Patient placed on 2L NC to maintain O2 saturations > 90% while sleeping.
--- NOTE | 2023-04-26 04:57 | PC.NURSE ---
Report called to Mendoza Gimenez RN at [facility]. Patient to be transferred to [facility], bed 2. All questions and concerns were addressed at time of report.
[2023-04-26] MEDS: morphine 4 mg/mL SDV 1 mL IVP (08:07)
[2023-04-26] MEDS: ondansetron 2 mg/ML SDV 2 mL 4 MG IVP (08:08)
--- NOTE | 2023-04-26 08:46 | PC.PHAR ---
Pharmacokinetic dosing service Date: 04/26/23 Time: 846 Objective: Patient: Kathryn Brice Floor: ED-13 Age: 63 yo Serum creatinine: 0.7 mg/dL Height: 67.0 Inches Weight (kg): 85.275 Diagnosis: Relevant medical/social history: Cultures and sensitivities: Other labs: Assessment: IBW (kg): 61.60 Dosing wt(kg): 85.275 Estimated Creatinine clearance (ml/min): 80.0 CRCL method: Cockcroft and Gault using ibw(default). Drug selected: Vancomycin Loading dose (mg): 0 Vd (liters): 76.7 (factor used: 0.9 L/kg) Gt (hr-1): 0.071 Half life (hrs): 9.76 Recommended dose: 1250 mg Interval: 12 hrs Infusion time (hrs): 1.5 Predicted peak (mcg/mL): 27.0 Predicted trough (mcg/mL): 12.81 Total body weight is being used for vancomycin dosing. Renal function is stable [ ] /unstable [ ] Recommendations: Give Vancomycin 1250 mg q 12 hrs with an expected Cpeak of 27.0 mcg/ml and an expected Ctrough of 12.81 mcg/ml Renal dosing of other antibiotics (review renal dosing of other medications and list guidelines here): Thank you for the consult, will continue to follow. Signature: Rashida Mccracken [facility]
== END 2023-04-26 08:50 | disposition short-term general hospital (02) ==
PROVIDERS: Physician Assistant; Emergency Provider Family Medicine; PCP Family Medicine
DX: T81.41XA Infection following a procedure, superficial incisional surgical site, initial encounter (principal); Z87.891 Personal history of nicotine dependence; Z85.048 Personal history of other malignant neoplasm of rectum, rectosigmoid junction, and anus; Z98.890 Other specified postprocedural states; Z11.52 Encounter for screening for COVID-19; Y83.8 Other surgical procedures as the cause of abnormal reaction of the patient, or of later complication, without mention of misadventure at the time of the procedure
CPT/HCPCS: 72193; 80053; 83605; 85025; 85651; 86140; 87040; 87426; 93971; 96374; 96375; 96376; 99285; J2270; J2405; J3370; J7030; J7050; Q9967

== ENCOUNTER 2023-05-11 13:57 | Oncology outpatient (recurring) (ONCR) | payer MEDICARE, MEDICAID, SELFPAY ==
[2023-05-11 14:58] LABS: Basophils % 0.9 %; Eosinophils # 0.2 10^3/uL (0.0-0.8); Eosinophils % 3.9 %; Hematocrit 40.1 % (36-47); Lymphocytes # 1.3 10^3/uL (0.8-4.8); Lymphocytes % 27.4 %; Mean Corpuscular HGB Conc 32.4 g/dL (30-55); Mean Corpuscular Hemoglobin 31.4 pg (27-33); Mean Corpuscular Volume 96.9 fl (85-98); Mean Platelet Volume 9.6 fL (7.4-10.4); Monocytes # 0.4 10^3/uL (0.2-0.9); Monocytes % 7.6 %; Neutrophils # 2.78 10^3/uL (1.8-7.7); Nucleated Red Blood Cells % 0 %; Platelet Count 245 10^3/cmm (157-399); Red Blood Count 4.14 10^6/uL (3.85-5.65); Red Cell Distribution Width 13.7 % (12.1-15.1); White Blood Count 4.63 10^3/uL (3.29-11.43)
[2023-05-11 15:23] LABS: Carcinoembryonic Antigen 2.2 ng/mL (0.0-4.7)
[2023-05-11 15:34] LABS: Alanine Aminotransferase 13 U/L (0-33); Alkaline Phosphatase 134 U/L (35-105); Anion Gap 14.9 (5-19); Aspartate Amino Transferase 17 U/L (0-32); Blood Urea Nitrogen 18 mg/dL (8-23); Calcium 9.1 mg/dL (8.5-10.5); Carbon Dioxide 26 mmol/L (22-29); Chloride 103 mmol/L (98-107); Globulin 2.5 g/dL (1.3-4.6); Glomerular Filtration Rate 84.5 mL/min (90-130); Glucose 161 mg/dL (65-115); Osmolality Calculated 295 mOsm/kg (285-295); Potassium 3.9 mmol/L (3.5-5.1); Sodium 140 mmol/L (136-145); Total Bilirubin 0.2 mg/dL (0.15-1.2); Total Protein 6.5 g/dL (6.6-8.7)
== END 2023-05-31 23:59 | disposition home or self-care (01) ==
PROVIDERS: Nurse Practitioner Family; PCP Family Medicine; Visit Provider Internal Medicine Hematology & Oncology
DX: K57.80 Diverticulitis of intestine, part unspecified, with perforation and abscess without bleeding (principal); C20 Malignant neoplasm of rectum; Z79.899 Other long term (current) drug therapy
CPT/HCPCS: 36591; 80053; 82378; 85025; 99214; J1642

== ENCOUNTER 2023-06-12 13:36 | Oncology outpatient (recurring) (ONCR) | payer MEDICARE, MEDICAID, SELFPAY | END 2023-06-29 23:59 | disposition home or self-care (01) | PROVIDERS: PCP Family Medicine; Visit Provider Internal Medicine Hematology & Oncology | DX: Z45.2 Encounter for adjustment and management of vascular access device | CPT/HCPCS: 96523; J1642 ==

== ENCOUNTER 2023-07-20 12:51 | Oncology outpatient (recurring) (ONCR) | payer MEDICARE, MEDICAID, SELFPAY | END 2023-07-30 23:59 | disposition home or self-care (01) | LOC: ONCMED 12:52 | PROVIDERS: PCP Family Medicine; Visit Provider Internal Medicine Hematology & Oncology | DX: Z45.2 Encounter for adjustment and management of vascular access device (principal) | CPT/HCPCS: 96523; J1642 ==

== ENCOUNTER 2023-09-11 12:48 | Oncology outpatient (recurring) (ONCR) | payer MEDICARE, MEDICAID, SELFPAY ==
[2023-09-11 13:39] LABS: Basophils # 0.1 10^3/uL (0.0-0.1); Basophils % 0.7 %; Eosinophils # 0.1 10^3/uL (0.0-0.8); Eosinophils % 1.6 %; Hematocrit 42.4 % (36-47); Lymphocytes # 1.5 10^3/uL (0.8-4.8); Lymphocytes % 22.3 %; Mean Corpuscular HGB Conc 32.8 g/dL (30-55); Mean Corpuscular Hemoglobin 31.5 pg (27-33); Mean Corpuscular Volume 96.1 fl (85-98); Mean Platelet Volume 11.1 fL (7.4-10.4); Monocytes # 0.4 10^3/uL (0.2-0.9); Monocytes % 5.5 %; Neutrophils # 4.63 10^3/uL (1.8-7.7); Neutrophils % 69.6 %; Nucleated Red Blood Cells % 0 %; Platelet Count 166 10^3/cmm (157-399); Red Blood Count 4.41 10^6/uL (3.85-5.65); White Blood Count 6.67 10^3/uL (3.29-11.43)
[2023-09-11 13:59] LABS: Carcinoembryonic Antigen 2.2 ng/mL (0.0-4.7)
[2023-09-11 14:10] LABS: Alanine Aminotransferase 14 U/L (0-33); Albumin Level 4.1 g/dL (3.5-5.2); Alkaline Phosphatase 149 U/L (35-105); Aspartate Amino Transferase 23 U/L (0-32); Blood Urea Nitrogen 9 mg/dL (8-23); Calcium 9.1 mg/dL (8.5-10.5); Carbon Dioxide 26 mmol/L (22-29); Chloride 103 mmol/L (98-107); Glomerular Filtration Rate 72.4 mL/min (90-130); Glucose 115 mg/dL (65-115); Osmolality Calculated 288 mOsm/kg (285-295); Sodium 139 mmol/L (136-145); Total Bilirubin 0.3 mg/dL (0.15-1.2); Total Protein 7.1 g/dL (6.6-8.7)
== END 2023-09-29 23:59 | disposition home or self-care (01) ==
PROVIDERS: Nurse Practitioner Family; PCP Family Medicine; Visit Provider Nurse Practitioner Family
DX: C20 Malignant neoplasm of rectum (principal); Z95.828 Presence of other vascular implants and grafts; Z79.899 Other long term (current) drug therapy
CPT/HCPCS: 36591; 80053; 82378; 85025; 99213

== ENCOUNTER 2023-12-11 09:34 | Oncology outpatient (recurring) (ONCR) | payer MEDICARE, SELFPAY ==
[2023-12-11 10:10] LABS: Basophils % 0.4 %; Eosinophils # 0.1 10^3/uL (0.0-0.8); Eosinophils % 1.4 %; Hematocrit 40.3 % (36-47); Lymphocytes # 1.1 10^3/uL (0.8-4.8); Lymphocytes % 21.4 %; Mean Corpuscular HGB Conc 32.8 g/dL (30-55); Mean Corpuscular Volume 97.8 fl (85-98); Mean Platelet Volume 9.8 fL (7.4-10.4); Monocytes # 0.2 10^3/uL (0.2-0.9); Monocytes % 3.1 %; Neutrophils # 3.72 10^3/uL (1.8-7.7); Neutrophils % 73.1 %; Nucleated Red Blood Cells % 0 %; Platelet Count 176 10^3/cmm (157-399); Red Blood Count 4.12 10^6/uL (3.85-5.65); White Blood Count 5.09 10^3/uL (3.29-11.43)
[2023-12-11 10:39] LABS: Carcinoembryonic Antigen 2.9 ng/mL (0.0-4.7)
[2023-12-11 10:49] LABS: Alanine Aminotransferase 15 U/L (0-33); Alkaline Phosphatase 166 U/L (35-105); Anion Gap 16.6 (5-19); Aspartate Amino Transferase 18 U/L (0-32); Blood Urea Nitrogen 18 mg/dL (8-23); Calcium 8.8 mg/dL (8.5-10.5); Carbon Dioxide 24 mmol/L (22-29); Chloride 103 mmol/L (98-107); Globulin 2.5 g/dL (1.3-4.6); Glomerular Filtration Rate 72.4 mL/min (90-130); Glucose 121 mg/dL (65-115); Osmolality Calculated 293 mOsm/kg (285-295); Potassium 3.6 mmol/L (3.5-5.1); Sodium 140 mmol/L (136-145); Total Bilirubin 0.7 mg/dL (0.15-1.2); Total Protein 6.5 g/dL (6.6-8.7)
[2023-12-11] MEDS: sodium chloride 0.9% 1,000 ML 999 ML IV (12:24)
[2023-12-11] MEDS: ondansetron 2 mg/ML SDV 2 mL 8 MG IVP (12:27)
[2023-12-11] MEDS: dexamethasone 10 mg/mL INJ 12 MG IVP (12:31)
[2023-12-11 13:45] VITALS: BP 137/78; PULSE 76; RESP 16; TEMP 36.7; O2SAT 98
== END 2023-12-30 23:55 | disposition home or self-care (01) ==
PROVIDERS: Internal Medicine Medical Oncology; PCP Family Medicine; Visit Provider Nurse Practitioner Family
DX: C20 Malignant neoplasm of rectum (principal); Z93.3 Colostomy status; Z92.3 Personal history of irradiation; Z87.891 Personal history of nicotine dependence; R11.2 Nausea with vomiting, unspecified; R51.9 Headache, unspecified; R53.83 Other fatigue; R53.1 Weakness; Z79.899 Other long term (current) drug therapy; Z92.21 Personal history of antineoplastic chemotherapy
CPT/HCPCS: 36591; 80053; 82378; 85025; 96361; 96374; 96375; 99214; J1100; J2405; J7030

== ENCOUNTER → 2024-02-15 09:55 | Outpatient (BNVA) | payer MEDICARE, SELFPAY | PROVIDERS: PCP Family Medicine; Visit Provider Podiatrist Foot & Ankle Surgery | DX: S92.351A Displaced fracture of fifth metatarsal bone, right foot, initial encounter for closed fracture (principal); M79.671 Pain in right foot; S93.491A Sprain of other ligament of right ankle, initial encounter; W19.XXXA Unspecified fall, initial encounter | CPT/HCPCS: 73630; 99204 ==

== ENCOUNTER 2024-02-16 09:39 | Day surgery (SDC) | payer MEDICARE, SELFPAY ==
--- OUTSIDE RECORDS SUMMARY | 2024-02-15 11:55 | XMS_ITS ---
Author Name Unknown Organization Unknown ALLERGIES AND ADVERSE REACTIONS No information ASSESSMENT No information CHIEF COMPLAINT No information Vital Signs Bpsitting Date Temperature Weight Height Spo2 Respiration Bmi Ti merecorded Pulse 142/88 024 00:00:0 0 98.5 186,3.20 5,7 97 16 29.2 00:00 77 null 023 00:00:0 0 98.2 188,3.20 5,7 97 null 29.3 00:00 90 150/80 023 00:00:0 0 97.1 173,16.0 0 5,7 96 null 27 00:00 82 130/70 024 00:00:0 0 97.7 185,16.0 0 5,7 97 null 29.1 00:00 85 130/78 024 00:00:0 0 97.1 184,0.00 5,7 97 null 28.6 00:00 92 128/72 024 00:00:0 0 97.1 185,0.00 5,7 95 null 29 00:00 76 OBJECTIVE DATA No information PHYSICAL EXAMINATION No information TREATMENT PLAN No information PROBLEMS No information RESULTS No information REVIEW OF SYSTEMS No information SUBJECTIVE DATA No information MEDICATIONS No information
[2024-02-16] VITALS (7 sets, daily range): BP systolic 124–157; BP diastolic 69–103; PULSE 63–98; RESP 14–18; TEMP 36.4–36.8; O2SAT 92–97; BMI 25.7
--- NOTE | 2024-02-16 | XR_ITS ---
WS: [id number] Exam: XR foot RT 2V [id number] Date/Time of Exam: 02/16/2024 12:00 AM Reason For Exam: OR PICS C-arm images of the RIGHT foot are submitted. There is screw fixation involving an oblique fracture of the midshaft of the fifth metatarsal. Alignm ent appears satisfactory for healing.
[2024-02-16] MEDS: sodium chloride 0.9% 1,000 ML 30 ML IV (10:25)
[2024-02-16] MEDS: vancomycin 1,500 MG/300 ML PIGGYBACK 200 MG IV (10:26)
--- NOTE | 2024-02-16 11:02 | ANES.PREANE2 ---
Pre-Anesthetic Assessment Height/Weight: Height 5 ft 8 in Weight 181 lb 8 oz Temp Pulse Resp BP Pulse Ox O2 Del Method 97.7 F 63 16 124/69 97 Room Air 02/16/24 10:02 02/16/24 10:02 02/16/24 10:02 02/16/24 10:02 02/16/24 10:02 02/16/24 10:02 Preop Diagnosis: Right fifth metatarsal fracture Operation Date: 02/16/24 11:15 Proposed Procedures p ORIF right fifth metatarsal fracture(Right) - Aidan Palomino DPM Was Beta Joshua taken within 24 hours: N/A Was Clonidine taken within 24 hours: N/A Last intake: Intake Last Liquid Date 02/15/24 Last Liquid Time 21:30 Last Solid Date 02/15/24 Last Solid Time 18:00 Social No alcohol and No tobacco Exam alert, oriented x 3, clear to auscultation bilaterally and regular rate & rhythm Airway Submandibular: within normal limits Cervical ROM: within normal limits Mallampati: Class II Dentition: false Anesthetic Plan ASA status: 3 Anesthesia: MAC Other: No prior issues with anesthesia NPO since yesterday Patient currently undergoing chemotherapy for rectal cancer Port in place History of hypothyroidism, on Synthroid Chronic oxycodone occasionally for pain Patient has a history of PE, on chronic Eliquis. Taken yesterday GERD on omeprazole Patient states that she is able to perform ADLs Plan for MAC anesthetic Medications/Allergies Home Medications Medication Instructions Recorded Confirmed Last Taken Type promethazine 25 mg tablet 25 mg PO Q6H PRN nausea and 09/17/20 02/16/24 12/27/23 Rx vomiting #20 tabs apixaban 5 mg tablet (Eliquis) 5 mg PO BID 08/01/22 02/16/24 02/15/24 07:00 History chlorhexidine gluconate 0.12 % 0.12 ml buccal DAILY 12/11/23 02/16/24 02/15/24 History mouthwash (Paroex Oral Rinse) escitalopram oxalate 20 mg tablet 20 mg PO DAILY 12/11/23 02/16/24 02/15/24 History (Lexapro) gabapentin 600 mg tablet 600 mg PO DAILY 12/11/23 02/16/24 02/14/24 History (Neurontin) levothyroxine 75 mcg tablet 75 mcg PO DAILY 12/11/23 02/16/24 02/15/24 History (Synthroid) ondansetron 8 mg disintegrating 8 mg PO Q6H PRN Nausea And 12/11/23 02/16/24 02/01/24 Rx tablet Vomiting #60 tabs omeprazole 20 mg capsule,delayed 20 mg PO BID 02/15/24 02/16/24 02/15/24 History release oxycodone 5 mg capsule 5 mg PO Q4H PRN Pain, Moderate 02/15/24 02/16/24 02/15/24 History Allergies Allergy/AdvReac Type Severity Reaction Status Date / Time Influenza Virus Vaccines Allergy Severe Unknown Verified 02/15/24 10:03 clindamycin Allergy ALGY-Rash Verified 02/15/24 10:03 pecan nut Allergy Unknown Verified 02/15/24 10:03 Penicillins Allergy ALGY-Anaphy Verified 02/15/24 10:03 laxis walnut Allergy Unknown Verified 02/15/24 10:03 Current Medications Generic Name Dose Route Start Last Admin Trade Name Freq PRN Reason Stop Dose Admin Vancomycin HCl 1,500 mg in 300 mls @ 200 mls/hr 02/16/24 09:47 02/16/24 10:26 Vancocin IV 02/16/24 11:16 200 mls/hr FUR CLIPPER ONE Administration Protocol Sodium Chloride 1,000 mls @ 30 mls/hr 02/16/24 10:00 02/16/24 10:25 Sodium Chloride 0.9% IV 02/17/24 09:59 30 mls/hr .Q24H SUSAN Administration PFSH Anesthesia Medical History Chronic cystitis Recurrent UTI Duplicated ureter, right Hydronephrosis Bilateral in concert with rectal carcinoma treated with chemotherapy radiation therapy and pending surgical removal Colostomy in place Perforated diverticulum Rectal cancer Sees Dr. Haider Espino Louis Gout Mitral valve prolapse Surgical History History of lymph node biopsy (03/29/23) Right superficial inguinal lymph node dissection History of exploratory laparotomy (05/24/22) Exploratory laparotomy with APR redo, conversion loop ileostomy to end colostomy History of low anterior resection of rectum (01/17/20) Low anterior resection with diverting loop ileostomy History of exploratory laparotomy (05/08/19) Exploratory laparotomy with Molina's procedure and removal of the abscess cavity for perforated rectal cancer History of abdominal surgery Drain placed to drain abscess for a pre sacral fluid collection - [facility]. 2021 S/P ureteral stent placement Placed in August 2019 and removed in September 2019 secondary to severe intolerable discomfort. Sounds like metallic stents. History of bladder surgery History of appendectomy History of bilateral tubal ligation Family History Family/Other No problems noted. Daughter Clotting disorder Father Lung disease Other CAD (coronary artery disease) Dementia Denies family history of Diabetes Hyperlipidemia Psychiatric illness Chronic kidney disease (CKD) Suicide Anesthesia complication Bleeding disorder Cancer Hypertension Stroke Social History Smoking and tobacco/nicotine status: former use of tobacco/nicotine (quit in 2006) Quit status (tobacco/nicotine): has quit using Year quit tobacco: 2006 Former quit date comment: smoked 20+ years Alcohol intake: current Alcohol intake frequency: holidays/special occasions only Alcohol type: wine Substance/Drug Use: never Household members: family Housing: House Data Anesthesia Cardiac Studies: No Data to Display
--- NOTE | 2024-02-16 11:15 | P.HPUD_ITS ---
Surgery/Procedure H&P Update DATE OF PROCEDURE: February 16, 2024 DATE H&P PERFORMED: 02/15/24 H&P UPDATE INFORMATION: I have reviewed H&P completed within last 30 days, I have examined patient prior to procedure, No changes to prior documentation and H&P is in [facility] [place] [facility] EMR on date indicated PREOP DIAGNOSIS: Right fifth metatarsal fracture PLANNED PROCEDURE: Operation Date: 02/16/24 11:15 Proposed Procedures p ORIF right fifth metatarsal fracture(Right) - Aidan Palomino DPM
[2024-02-16] MEDS: BUPivacaine 0.25% INJ 10 mL 20 ML INJECTION (11:50)
[2024-02-16] MEDS: BUPivacaine liposome 13.3 mg/mL SDV 20 mL 266 MG INFILTRATI (11:53)
--- NOTE | 2024-02-16 11:53 | PC.NURSE ---
PT REPORTED INTENSE ITCHING ALL OVER SCALP. VANCOMYCIN STOPPED. POLISHER BALANCE SCREWHEAD NOTIFIED & MEDICATED PT. PER ANESTHESIA, VANC DISCONTINUED.
--- NOTE | 2024-02-16 13:05 | P.OP_ITS ---
Operative Report Date of procedure: February 16, 2024 Pre-op diagnosis: Closed displaced fracture of fifth metatarsal bone of right foot, initial encounter S92.351A Post-op diagnosis: Closed displaced fracture of fifth metatarsal bone of right foot, initial encounter S92.351A Procedure done: Open reduction internal fixation right fifth metatarsal fracture. CPT code 94953 Implants: [place] 2 mm screw x 4, 4-0 Vicryl, 4-0 nylon Specimens removed/disposition: No specimens Pathology: No pathology Surgeon: Aidan Palomino DPM [facility] Food Service Worker: Shawn PEDERSON Estimated blood loss: 2 mL 33 minutes IV fluids: See intraoperative documentation Urine output: None Complications: None Brief History: 64-year-old female with a history of breast cancer and recent chemotherapy, presenting with right foot injury characterized by a fifth metatarsal fracture and ankle sprain. The right foot injury stemmed from a sudden onset of heaviness and inability to lift the foot, suggesting potential neuromuscular involvement. The fracture is significant with visible displacement, raising considerations for surgical intervention to restore anatomical alignment and ensure proper healing. Ankle sprain is also contributing to pain and dysfunction, requiring immobilization and possible rehabilitation. Calcium and bone density may have been compromised due to chemotherapy; however, significant osteoporosis is not present though osteopenia could be a contributing factor. 1. Osteopenia Bone density testing will be scheduled in light of recent chemotherapy treatments, despite good initial observation of bone density concerning the fracture site. Monitoring of calcium intake and potential pharmacological intervention may be considered based on formal results. 2. Ankle Sprain Management includes immobilization with continued boot usage and emphasis on compression and graded mobilization to maintain ankle joint function. Rehabilitation will focus on restoring the range of motion and eventual return to activity post-surgical healing of the fracture. 3. Fifth Metatarsal Fracture Given the severity of the fracture displacement (3.5-4 mm) and the slight shortening of the bone, surgical intervention is discussed to ensure proper anatomical realignment. The planned procedure includes utilizing screw fixation or a titanium plate for stabilization. The patient was educated on the advantages of surgery including the high healing rate and return to full a ctivity, with the timeline aligning with personal commitments. Non-surgical management was addressed, but considering potential non-union due to displacement, surgery is favored. - Continue to wear the boot and avoid placing weight on the right foot except on the heel to alleviate discomfort. - Prepare for possible foot surgery soon and follow preoperative instructions, including fasting and medication adjustments as advised. - Arrange for bone density testing through scheduled appointments. - Keep the affected foot elevated to minimize swelling and adhere to any specific mobility restrictions prior to and following any procedures. - Expect follow-up communications regarding surgery scheduling and further instructions regarding transportation and post-operative care. I reviewed at length with the patient, the risks, potential complications, benefits, alternatives, expectations, and typical outcomes associated with the surgery. The risks and potential complications were explained in detail, including but not limited to infection, wound dehiscence or soft tissue complications, bleeding and hematoma, chronic edema, neuritis or nerve damage producing numbness or chronic pain, CRPS, failure to relieve pain or worsening pain, thick / painful / unsightly scar, limited motion / stiffness, malposition, delayed union, malunion, or nonunion, fracture, reaction to implants, anesthetic complications, venous thromboembolism, and deformity recurrence. I discussed the notion of no regrets with the patient as it pertains to complications and outcomes. The patient seemed to understand the nature of the proposed care and required convalescence. They asked appropriate questions, answered to their satisfaction. They are aware no guarantees can be made as to a satisfactory outcome and they understand there may be other possible unforeseen complications or outcomes not listed here that will be treated accordingly if they arise. There were no written or implied guarantees given to the patient. They gave informed consent to proceed.
--- NOTE | 2024-02-16 13:05 | W.PM.BPON ---
Date of Procedure: 07/14/23 Surgeon: Aidan Palomino DPM Utility Sales Representative(s): Shawn PEDERSON Procedure(s) performed: Open reduction internal fixation right fifth metatarsal fracture Findings of the procedure(s): None Estimated blood loss: 2 mL Specimen(s) removed: No specimens Post-operative diagnosis: Right fifth metatarsal fracture
--- NOTE | 2024-02-16 14:08 | ANE.PACU2 ---
Inpatient post-anesthesia follow up: Airway intact: Yes Vital signs: Temperature 98.2 F Pulse Rate 72 Respiratory Rate 18 Blood Pressure 129/80 Pulse Oximetry 93 Oxygen Delivery Me thod Room Air Oxygen Flow Rate 2 Fraction of Inspir ed Oxygen Hydration adequate: Yes Nausea and vomiting: No Pain level: 1 Mental status: Baseline
== END 2024-02-16 14:08 | disposition home or self-care (01) ==
PROVIDERS: PCP Family Medicine; Visit Provider Podiatrist Foot & Ankle Surgery
PROC: (CPT 28485; principal; 2024-02-16 11:05)
DX: S92.351A Displaced fracture of fifth metatarsal bone, right foot, initial encounter for closed fracture (principal); W19.XXXA Unspecified fall, initial encounter; Z85.048 Personal history of other malignant neoplasm of rectum, rectosigmoid junction, and anus; Z87.891 Personal history of nicotine dependence; E03.9 Hypothyroidism, unspecified; Z86.711 Personal history of pulmonary embolism; Z79.01 Long term (current) use of anticoagulants
CPT/HCPCS: 28485; 73620; 76000; C1713; C9290; J2250; J2704; J3010; J3370; J3490; J7030

== ENCOUNTER → 2024-03-04 13:29 | Outpatient (BNVA) | payer MEDICARE, SELFPAY | PROVIDERS: PCP Family Medicine; Visit Provider Podiatrist Foot & Ankle Surgery | DX: Z98.890 Other specified postprocedural states; S92.351D Displaced fracture of fifth metatarsal bone, right foot, subsequent encounter for fracture with routine healing; X58.XXXD Exposure to other specified factors, subsequent encounter | CPT/HCPCS: 73630; 99024 ==

== ENCOUNTER → 2024-03-26 14:53 | Outpatient (BNVA) | payer MEDICARE, SELFPAY | PROVIDERS: PCP Family Medicine; Visit Provider Podiatrist Foot & Ankle Surgery | DX: Z98.890 Other specified postprocedural states; S92.354D Nondisplaced fracture of fifth metatarsal bone, right foot, subsequent encounter for fracture with routine healing; X58.XXXD Exposure to other specified factors, subsequent encounter; Z47.89 Encounter for other orthopedic aftercare; S92.351D Displaced fracture of fifth metatarsal bone, right foot, subsequent encounter for fracture with routine healing | CPT/HCPCS: 73630 ==

== ENCOUNTER 2024-03-26 15:33 | Outpatient (CLI) | payer MEDICARE, SELFPAY | END 2024-03-26 15:34 | disposition home or self-care (01) | LOC: SPT 15:34 | PROVIDERS: PCP Family Medicine; Visit Provider Podiatrist Foot & Ankle Surgery | DX: Z47.89 Encounter for other orthopedic aftercare (principal); S92.351D Displaced fracture of fifth metatarsal bone, right foot, subsequent encounter for fracture with routine healing; X58.XXXD Exposure to other specified factors, subsequent encounter | CPT/HCPCS: 99024; L3031 ==

== ENCOUNTER 2024-04-01 14:03 | Outpatient (CLI) | payer MEDICARE, SELFPAY ==
--- NOTE | 2024-04-01 14:05 | XR_ITS ---
WS: [id number] SCREENING DEXA SCAN [employer] CLINICAL INFORMATION: POSTMENOPAUSAL COMPARISON: None. FINDINGS: The L1-L4 bone mineral density measures 0.875 g/cm2. This corresponds to a T score score of -2.5 and Z score of -1.6. Left femoral neck bone mineral density measures 0.754 g/cm2. This corresponds to a T score of -2.0 an d Z score of -1.3. Right femoral neck bone mineral density measures 0.692 g/cm2. This corresponds to a T score -2.5of an d Z score of -1.8. Mean femoral neck bone mineral density measures 0.723 g/cm2. This corresponds to a T score of -2.3 an d Z score of -1.5. XR/XR DEXA axial skeleton* 19094 IMPRESSION: Osteoporosis lumbar spine at the lower end of the range. Osteopenia femoral nec ks at the upper end of the range. Patient's FRAX calculated 10 year probability for major osteoporotic fracture i s 18.7% and osteoporotic hip fracture is 3.2%.
== END 2024-04-01 14:04 | disposition home or self-care (01) ==
LOC: RAD 14:04
PROVIDERS: PCP Family Medicine; Visit Provider Electrodiagnostic Medicine
DX: Z13.820 Encounter for screening for osteoporosis (principal); Z78.0 Asymptomatic menopausal state; M81.0 Age-related osteoporosis without current pathological fracture
CPT/HCPCS: 77080

== ENCOUNTER → 2024-04-11 12:56 | Outpatient (BNVA) | payer MEDICARE, SELFPAY | PROVIDERS: PCP Family Medicine; Visit Provider Podiatrist Foot & Ankle Surgery | DX: Z98.890 Other specified postprocedural states (principal); S92.351D Displaced fracture of fifth metatarsal bone, right foot, subsequent encounter for fracture with routine healing; X58.XXXD Exposure to other specified factors, subsequent encounter | CPT/HCPCS: 73630; 99024 ==

== ENCOUNTER → 2024-05-02 15:14 | Outpatient (BNVA) | payer MEDICARE, SELFPAY | PROVIDERS: PCP Family Medicine; Visit Provider Podiatrist Foot & Ankle Surgery | DX: Z98.890 Other specified postprocedural states; S92.354D Nondisplaced fracture of fifth metatarsal bone, right foot, subsequent encounter for fracture with routine healing; X58.XXXD Exposure to other specified factors, subsequent encounter | CPT/HCPCS: 73630; 99024 ==

== ENCOUNTER 2024-07-23 12:40 | Oncology outpatient (recurring) (ONCR) | payer MEDICARE, SELFPAY ==
[2024-07-23 13:41] LABS: Basophils % 0.2 %; Eosinophils # 0.1 10^3/uL (0.0-0.8); Eosinophils % 1.5 %; Lymphocytes # 1.2 10^3/uL (0.8-4.8); Mean Corpuscular HGB Conc 33.1 g/dL (30-55); Mean Corpuscular Hemoglobin 35.4 pg (27-33); Mean Corpuscular Volume 107.1 fl (85-98); Mean Platelet Volume 9.9 fL (7.4-10.4); Monocytes # 0.3 10^3/uL (0.2-0.9); Monocytes % 6.7 %; Neutrophils # 3.05 10^3/uL (1.8-7.7); Neutrophils % 66.4 %; Nucleated Red Blood Cells % 0 %; Platelet Count 151 10^3/cmm (157-399); Red Blood Count 3.64 10^6/uL (3.85-5.65); Red Cell Distribution Width 13.1 % (12.1-15.1)
[2024-07-23 14:08] LABS: Carcinoembryonic Antigen 3.1 ng/mL (0.0-4.7)
[2024-07-23 14:19] LABS: Alanine Aminotransferase 20 U/L (0-33); Albumin Level 4.3 g/dL (3.5-5.2); Alkaline Phosphatase 115 U/L (35-105); Anion Gap 13.8 (5-19); Aspartate Amino Transferase 27 U/L (0-32); Blood Urea Nitrogen 12 mg/dL (8-23); Calcium 9.2 mg/dL (8.5-10.5); Carbon Dioxide 26 mmol/L (22-29); Chloride 104 mmol/L (98-107); Creatinine Clr Calc Pharmacy 79.8303; Globulin 2.5 g/dL (1.3-4.6); Glomerular Filtration Rate 72.2 mL/min (90-130); Glucose 124 mg/dL (65-115); Osmolality Calculated 291 mOsm/kg (285-295); Potassium 3.8 mmol/L (3.5-5.1); Sodium 140 mmol/L (136-145); Total Bilirubin 0.3 mg/dL (0.15-1.2); Total Protein 6.8 g/dL (6.6-8.7)
== END 2024-07-29 23:59 | disposition home or self-care (01) ==
PROVIDERS: PCP Family Medicine; Visit Provider Internal Medicine Medical Oncology
DX: C20 Malignant neoplasm of rectum (principal); C78.6 Secondary malignant neoplasm of retroperitoneum and peritoneum; Z87.891 Personal history of nicotine dependence; Z79.899 Other long term (current) drug therapy
CPT/HCPCS: 36591; 80053; 82378; 85025; 99214

== ENCOUNTER → 2024-08-13 08:36 | Outpatient (BNVA) | payer MEDICARE, SELFPAY | PROVIDERS: PCP Family Medicine; Visit Provider Podiatrist Foot & Ankle Surgery | DX: Q82.8 Other specified congenital malformations of skin (principal) | CPT/HCPCS: 99213 ==

== ENCOUNTER 2024-08-19 09:15 | Oncology outpatient (recurring) (ONCR) | payer MEDICARE, SELFPAY ==
[2024-08-05 08:55] LABS: Basophils % 0.8 %; Eosinophils # 0.1 10^3/uL (0.0-0.8); Eosinophils % 2.3 %; Hematocrit 41.2 % (36-47); Lymphocytes # 1.2 10^3/uL (0.8-4.8); Lymphocytes % 24.6 %; Mean Corpuscular Hemoglobin 34.7 pg (27-33); Mean Corpuscular Volume 105.1 fl (85-98); Mean Platelet Volume 9.8 fL (7.4-10.4); Monocytes # 0.3 10^3/uL (0.2-0.9); Monocytes % 6.4 %; Neutrophils # 3.09 10^3/uL (1.8-7.7); Neutrophils % 65.7 %; Nucleated Red Blood Cells % 0 %; Platelet Count 141 10^3/cmm (157-399); Red Blood Count 3.92 10^6/uL (3.85-5.65); White Blood Count 4.71 10^3/uL (3.29-11.43)
[2024-08-05 09:26] LABS: Carcinoembryonic Antigen 2.8 ng/mL (0.0-4.7)
[2024-08-05 09:37] LABS: Alanine Aminotransferase 19 U/L (0-33); Albumin Level 4.3 g/dL (3.5-5.2); Alkaline Phosphatase 122 U/L (35-105); Anion Gap 16.1 (5-19); Aspartate Amino Transferase 24 U/L (0-32); Blood Urea Nitrogen 14 mg/dL (8-23); Calcium 9.2 mg/dL (8.5-10.5); Carbon Dioxide 25 mmol/L (22-29); Chloride 103 mmol/L (98-107); Creatinine Clr Calc Pharmacy 70.9603; Globulin 2.8 g/dL (1.3-4.6); Glucose 135 mg/dL (65-115); Osmolality Calculated 293 mOsm/kg (285-295); Potassium 4.1 mmol/L (3.5-5.1); Sodium 140 mmol/L (136-145); Total Bilirubin 0.4 mg/dL (0.15-1.2); Total Protein 7.1 g/dL (6.6-8.7)
[2024-08-05] MEDS: nivolumab 240 MG in sodium chloride 0.9% 250 ML 548 MG IV (09:55)
[2024-08-05 10:59] VITALS: BP 125/69; PULSE 61
[2024-08-19 09:33] LABS: Basophils % 0.5 %; Eosinophils # 0.1 10^3/uL (0.0-0.8); Eosinophils % 1.7 %; Hematocrit 40.9 % (36-47); Lymphocytes # 1.2 10^3/uL (0.8-4.8); Lymphocytes % 20.7 %; Mean Corpuscular HGB Conc 33.3 g/dL (30-55); Mean Corpuscular Hemoglobin 34.2 pg (27-33); Mean Corpuscular Volume 102.8 fl (85-98); Mean Platelet Volume 9.8 fL (7.4-10.4); Monocytes # 0.4 10^3/uL (0.2-0.9); Neutrophils # 4.08 10^3/uL (1.8-7.7); Neutrophils % 69.8 %; Nucleated Red Blood Cells % 0 %; Platelet Count 169 10^3/cmm (157-399); Red Blood Count 3.98 10^6/uL (3.85-5.65); Red Cell Distribution Width 11.9 % (12.1-15.1); White Blood Count 5.85 10^3/uL (3.29-11.43)
[2024-08-19 09:58] LABS: Alanine Aminotransferase 26 U/L (0-33); Albumin Level 4.2 g/dL (3.5-5.2); Alkaline Phosphatase 116 U/L (35-105); Aspartate Amino Transferase 35 U/L (0-32); Blood Urea Nitrogen 12 mg/dL (8-23); Calcium 9.1 mg/dL (8.5-10.5); Carbon Dioxide 25 mmol/L (22-29); Chloride 101 mmol/L (98-107); Creatinine Clr Calc Pharmacy 79.4235; Globulin 2.8 g/dL (1.3-4.6); Glomerular Filtration Rate 72.2 mL/min (90-130); Glucose 99 mg/dL (65-115); Osmolality Calculated 284 mOsm/kg (285-295); Sodium 137 mmol/L (136-145); Thyroid Stimulating Hormone 2.48 uIU/mL (0.27-4.20); Total Bilirubin 0.3 mg/dL (0.15-1.2)
[2024-08-19] MEDS: nivolumab 240 MG in sodium chloride 0.9% 250 ML 548 MG IV (11:44)
== END 2024-08-19 23:59 | disposition home or self-care (01) ==
PROVIDERS: PCP Family Medicine; Visit Provider Internal Medicine Medical Oncology
DX: Z53.9 Procedure and treatment not carried out, unspecified reason (principal); Z51.12 Encounter for antineoplastic immunotherapy; C20 Malignant neoplasm of rectum; C78.6 Secondary malignant neoplasm of retroperitoneum and peritoneum; Z79.620 Long term (current) use of immunosuppressive biologic; Z87.891 Personal history of nicotine dependence
CPT/HCPCS: 80053; 82378; 84443; 85025; 96413; 99213; 99214; A4222; J7050; J9299

== ENCOUNTER 2024-09-16 11:30 | Oncology outpatient (recurring) (ONCR) | payer MEDICARE, SELFPAY ==
[2024-09-02 08:20] LABS: Basophils % 0.5 %; Eosinophils # 0.1 10^3/uL (0.0-0.8); Eosinophils % 3.2 %; Hematocrit 42.2 % (36-47); Lymphocytes # 1.2 10^3/uL (0.8-4.8); Lymphocytes % 27.5 %; Mean Corpuscular HGB Conc 32.5 g/dL (30-55); Mean Corpuscular Hemoglobin 33.7 pg (27-33); Mean Corpuscular Volume 103.7 fl (85-98); Mean Platelet Volume 9.7 fL (7.4-10.4); Monocytes # 0.4 10^3/uL (0.2-0.9); Monocytes % 9.9 %; Neutrophils # 2.55 10^3/uL (1.8-7.7); Neutrophils % 58.9 %; Nucleated Red Blood Cells % 0 %; Platelet Count 179 10^3/cmm (157-399); Red Blood Count 4.07 10^6/uL (3.85-5.65); Red Cell Distribution Width 12.1 % (12.1-15.1); White Blood Count 4.33 10^3/uL (3.29-11.43)
[2024-09-02 08:47] LABS: Thyroid Stimulating Hormone 2.71 uIU/mL (0.27-4.20)
[2024-09-02 08:58] LABS: Alanine Aminotransferase 16 U/L (0-33); Alkaline Phosphatase 124 U/L (35-105); Anion Gap 14.1 (5-19); Aspartate Amino Transferase 22 U/L (0-32); Blood Urea Nitrogen 11 mg/dL (8-23); Calcium 9.2 mg/dL (8.5-10.5); Carbon Dioxide 27 mmol/L (22-29); Chloride 103 mmol/L (98-107); Creatinine Clr Calc Pharmacy 79.4235; Globulin 3.1 g/dL (1.3-4.6); Glomerular Filtration Rate 72.2 mL/min (90-130); Glucose 91 mg/dL (65-115); Osmolality Calculated 289 mOsm/kg (285-295); Potassium 4.1 mmol/L (3.5-5.1); Sodium 140 mmol/L (136-145); Total Bilirubin 0.3 mg/dL (0.15-1.2); Total Protein 7.1 g/dL (6.6-8.7)
[2024-09-02] MEDS: nivolumab 240 MG in sodium chloride 0.9% 250 ML 548 MG IV (10:27)
[2024-09-02 11:06] VITALS: BP 125/78; PULSE 71; RESP 16; TEMP 35.9
[2024-09-16 11:54] LABS: Basophils % 0.6 %; Eosinophils # 0.1 10^3/uL (0.0-0.8); Eosinophils % 1.4 %; Hematocrit 40.6 % (36-47); Lymphocytes # 1.4 10^3/uL (0.8-4.8); Lymphocytes % 27.5 %; Mean Corpuscular HGB Conc 32.5 g/dL (30-55); Mean Corpuscular Hemoglobin 33.1 pg (27-33); Mean Corpuscular Volume 101.8 fl (85-98); Mean Platelet Volume 10.1 fL (7.4-10.4); Monocytes # 0.3 10^3/uL (0.2-0.9); Monocytes % 6.1 %; Neutrophils # 3.23 10^3/uL (1.8-7.7); Nucleated Red Blood Cells % 0 %; Platelet Count 140 10^3/cmm (157-399); Red Blood Count 3.99 10^6/uL (3.85-5.65); Red Cell Distribution Width 12.4 % (12.1-15.1); White Blood Count 5.05 10^3/uL (3.29-11.43)
[2024-09-16 12:23] LABS: Alanine Aminotransferase 16 U/L (0-33); Albumin Level 4.1 g/dL (3.5-5.2); Alkaline Phosphatase 121 U/L (35-105); Anion Gap 17.2 (5-19); Aspartate Amino Transferase 29 U/L (0-32); Blood Urea Nitrogen 12 mg/dL (8-23); Calcium 9.1 mg/dL (8.5-10.5); Carbon Dioxide 24 mmol/L (22-29); Chloride 104 mmol/L (98-107); Creatinine Clr Calc Pharmacy 70.7797; Globulin 2.7 g/dL (1.3-4.6); Glucose 140 mg/dL (65-115); Osmolality Calculated 294 mOsm/kg (285-295); Potassium 4.2 mmol/L (3.5-5.1); Sodium 141 mmol/L (136-145); Thyroid Stimulating Hormone 1.85 uIU/mL (0.27-4.20); Total Bilirubin 0.3 mg/dL (0.15-1.2); Total Protein 6.8 g/dL (6.6-8.7)
[2024-09-16] MEDS: nivolumab 240 MG in sodium chloride 0.9% 250 ML 548 MG IV (13:38)
[2024-09-16 14:18] VITALS: BP 131/77; PULSE 61; TEMP 36.9; O2SAT 95
== END 2024-09-16 23:59 | disposition home or self-care (01) ==
PROVIDERS: Nurse Practitioner Family; PCP Family Medicine; Visit Provider Internal Medicine Medical Oncology
DX: Z53.9 Procedure and treatment not carried out, unspecified reason (principal); Z51.12 Encounter for antineoplastic immunotherapy; C20 Malignant neoplasm of rectum; Z79.620 Long term (current) use of immunosuppressive biologic; Z79.899 Other long term (current) drug therapy; Z87.891 Personal history of nicotine dependence; C77.5 Secondary and unspecified malignant neoplasm of intrapelvic lymph nodes; Z90.49 Acquired absence of other specified parts of digestive tract; Z95.828 Presence of other vascular implants and grafts; Z93.3 Colostomy status
CPT/HCPCS: 80053; 82378; 84443; 85025; 96413; 99214; A4222; J7050; J9299

== ENCOUNTER → 2024-09-30 11:07 | Outpatient (BNVA) | payer MEDICARE, SELFPAY | PROVIDERS: PCP Family Medicine; Visit Provider Podiatrist Foot & Ankle Surgery | DX: Z09 Encounter for follow-up examination after completed treatment for conditions other than malignant neoplasm (principal) | CPT/HCPCS: 99213 ==

== ENCOUNTER 2024-10-14 11:59 | Oncology outpatient (recurring) (ONCR) | payer MEDICARE, SELFPAY ==
[2024-10-14] MEDS: alteplase 1 mg/mL SDV 2 mL 2 MG INTRACATH (12:44)
[2024-10-14 13:30] LABS: Basophils % 0.7 %; Eosinophils # 0.1 10^3/uL (0.0-0.8); Eosinophils % 2.2 %; Hematocrit 37.8 % (36-47); Lymphocytes # 1.2 10^3/uL (0.8-4.8); Lymphocytes % 26.8 %; Mean Corpuscular HGB Conc 32.8 g/dL (30-55); Mean Corpuscular Hemoglobin 32.5 pg (27-33); Mean Platelet Volume 10.3 fL (7.4-10.4); Monocytes # 0.4 10^3/uL (0.2-0.9); Monocytes % 8.6 %; Neutrophils # 2.81 10^3/uL (1.8-7.7); Neutrophils % 61.5 %; Nucleated Red Blood Cells % 0 %; Platelet Count 141 10^3/cmm (157-399); Red Blood Count 3.82 10^6/uL (3.85-5.65); Red Cell Distribution Width 13.2 % (12.1-15.1); White Blood Count 4.56 10^3/uL (3.29-11.43)
[2024-10-14 13:56] LABS: Alanine Aminotransferase 16 U/L (0-33); Alkaline Phosphatase 108 U/L (35-105); Anion Gap 13.9 (5-19); Aspartate Amino Transferase 29 U/L (0-32); Blood Urea Nitrogen 17 mg/dL (8-23); Carbon Dioxide 26 mmol/L (22-29); Chloride 106 mmol/L (98-107); Creatinine Clr Calc Pharmacy 79.6271; Globulin 2.6 g/dL (1.3-4.6); Glomerular Filtration Rate 72.2 mL/min (90-130); Glucose 98 mg/dL (65-115); Osmolality Calculated 296 mOsm/kg (285-295); Potassium 3.9 mmol/L (3.5-5.1); Sodium 142 mmol/L (136-145); Thyroid Stimulating Hormone 2.14 uIU/mL (0.27-4.20); Total Bilirubin 0.3 mg/dL (0.15-1.2); Total Protein 6.6 g/dL (6.6-8.7)
[2024-10-14] MEDS: nivolumab 480 MG in sodium chloride 0.9% 250 ML 596 MG IV (14:44)
[2024-10-14 15:27] VITALS: BP 124/76; PULSE 74; RESP 16; TEMP 36.4; O2SAT 97
== END 2024-10-14 23:59 | disposition home or self-care (01) ==
PROVIDERS: PCP Family Medicine; Visit Provider Internal Medicine Medical Oncology
DX: Z51.12 Encounter for antineoplastic immunotherapy (principal); C20 Malignant neoplasm of rectum; Z79.620 Long term (current) use of immunosuppressive biologic; Z87.891 Personal history of nicotine dependence; Z79.899 Other long term (current) drug therapy
CPT/HCPCS: 36593; 80053; 84443; 85025; 96413; 99214; A4222; J2997; J7050; J9299

== ENCOUNTER 2024-11-11 11:49 | Oncology outpatient (recurring) (ONCR) | payer MEDICARE, SELFPAY ==
[2024-11-11 12:24] LABS: Hematocrit 42.5 % (36-47); Hemoglobin 13.90 g/dL (11.27-16.99); Mean Corpuscular HGB Conc 32.7 g/dL (30-55); Mean Corpuscular Hemoglobin 32.6 pg (27-33); Mean Corpuscular Volume 99.5 fl (85-98); Nucleated Red Blood Cells % 0 %; Platelet Count 150 10^3/cmm (157-399); Red Blood Count 4.27 10^6/uL (3.85-5.65); White Blood Count 4.37 10^3/uL (3.29-11.43)
[2024-11-11] MEDS: alteplase 1 mg/mL SDV 2 mL 2 MG INTRACATH (12:40)
[2024-11-11 12:52] LABS: Alanine Aminotransferase 21 U/L (0-33); Albumin Level 4.1 g/dL (3.5-5.2); Alkaline Phosphatase 118 U/L (35-105); Anion Gap 15.1 (5-19); Aspartate Amino Transferase 28 U/L (0-32); Blood Urea Nitrogen 11 mg/dL (8-23); Calcium 8.9 mg/dL (8.5-10.5); Carbon Dioxide 26 mmol/L (22-29); Chloride 104 mmol/L (98-107); Creatinine Clr Calc Pharmacy 70.7797; Globulin 2.8 g/dL (1.3-4.6); Glucose 77 mg/dL (65-115); Osmolality Calculated 290 mOsm/kg (285-295); Potassium 4.1 mmol/L (3.5-5.1); Sodium 141 mmol/L (136-145); Thyroid Stimulating Hormone 3.05 uIU/mL (0.27-4.20); Total Protein 6.9 g/dL (6.6-8.7)
[2024-11-11] MEDS: nivolumab 480 MG in sodium chloride 0.9% 250 ML 596 MG IV (13:57)
--- NOTE | 2024-11-11 14:42 | XR_ITS ---
WS: [id number] XR lumbar spine 2-3V* [id number] REASON FOR EXAM: lumbar pain without trauma FINDINGS: Decreased bone density. Mild dextroscoliosis of the lumbar spine with slightly exaggerated lumbar lordosis. Chronic biconcave compression deformity of L5 with vertebral body sclerosis. This is present on previous CT angiogram of the abdomen and pelvis 08/01/2022. No significant interval change. Chronic sacral insufficiency fractures with sacral deformity. This abnormality was also present on the previous CT scan and most likely is without significant interval change. There are biconcave compression deformities of the first through the third lumbar vertebrae. These findings were not present on the previous CT scan. Significant narrowing of the disc space at L3 L2 with degenerative gas. Moderate narrowing of the L1-L2 disc space. 6 to 7 mm of anterolisthesis of L2 in relation to L1 and L3 in relation to L2. These listheses were not present on the previous CT scan. Moderate degenerative changes in the facet joints L3-S1. XR/XR lumbar spine 2-3V* [id number] IMPRESSION: Chronic compression deformity of L4. Chronic sacral insufficiency fractures as above. Compression fractures of unknown age L1 and L3. Compression fracture of L3 poss ibly acute/subacute.
== END 2024-11-11 23:59 | disposition home or self-care (01) ==
PROVIDERS: Nurse Practitioner Family; PCP Family Medicine; Visit Provider Internal Medicine Medical Oncology
DX: Z51.12 Encounter for antineoplastic immunotherapy (principal); C20 Malignant neoplasm of rectum; Z79.620 Long term (current) use of immunosuppressive biologic; Z87.891 Personal history of nicotine dependence; M54.50 Low back pain, unspecified; M43.8X6 Other specified deforming dorsopathies, lumbar region
CPT/HCPCS: 36415; 72100; 80053; 84443; 85025; 96413; 99214; A4222; J2997; J7050; J9299

== ENCOUNTER 2024-12-09 11:58 | Oncology outpatient (recurring) (ONCR) | payer MEDICARE, SELFPAY ==
[2024-12-09] MEDS: alteplase 1 mg/mL SDV 2 mL 2 MG INTRACATH (12:15)
[2024-12-09 12:21] LABS: Hematocrit 41.9 % (36-47); Hemoglobin 13.80 g/dL (11.27-16.99); Mean Corpuscular HGB Conc 32.9 g/dL (30-55); Mean Corpuscular Hemoglobin 32.4 pg (27-33); Mean Corpuscular Volume 98.4 fl (85-98); Nucleated Red Blood Cells % 0 %; Platelet Count 133 10^3/cmm (157-399); Red Blood Count 4.26 10^6/uL (3.85-5.65); White Blood Count 5.14 10^3/uL (3.29-11.43)
[2024-12-09 12:52] LABS: Alanine Aminotransferase 16 U/L (0-33); Albumin Level 4.2 g/dL (3.5-5.2); Alkaline Phosphatase 117 U/L (35-105); Anion Gap 15.0 (5-19); Aspartate Amino Transferase 25 U/L (0-32); Blood Urea Nitrogen 14 mg/dL (8-23); Calcium 9.1 mg/dL (8.5-10.5); Carbon Dioxide 28 mmol/L (22-29); Chloride 103 mmol/L (98-107); Creatinine Clr Calc Pharmacy 70.5986; Globulin 2.8 g/dL (1.3-4.6); Glucose 111 mg/dL (65-115); Osmolality Calculated 295 mOsm/kg (285-295); Potassium 4.0 mmol/L (3.5-5.1); Sodium 142 mmol/L (136-145); Thyroid Stimulating Hormone 2.12 uIU/mL (0.27-4.20); Total Protein 7.0 g/dL (6.6-8.7)
[2024-12-09 13:39] LABS: Carcinoembryonic Antigen 3.9 ng/mL (0.0-4.7)
[2024-12-09] MEDS: nivolumab 480 MG in sodium chloride 0.9% 250 ML 596 MG IV (13:51)
[2024-12-09 14:26] VITALS: BP 113/75; PULSE 66; TEMP 36.4; O2SAT 99
== END 2024-12-09 23:59 | disposition home or self-care (01) ==
PROVIDERS: Nurse Practitioner Family; PCP Family Medicine; Visit Provider Internal Medicine Medical Oncology
DX: Z51.12 Encounter for antineoplastic immunotherapy (principal); C20 Malignant neoplasm of rectum; C78.6 Secondary malignant neoplasm of retroperitoneum and peritoneum; Z79.620 Long term (current) use of immunosuppressive biologic; Z79.899 Other long term (current) drug therapy; Z87.891 Personal history of nicotine dependence; M54.50 Low back pain, unspecified
CPT/HCPCS: 36415; 80053; 82378; 84443; 85025; 96413; 99214; A4222; J2997; J7050; J9299

== ENCOUNTER 2025-01-06 09:33 | Oncology outpatient (recurring) (ONCR) | payer MEDICARE, SELFPAY ==
[2025-01-06 10:13] LABS: Hematocrit 42.4 % (36-47); Hemoglobin 13.90 g/dL (11.27-16.99); Mean Corpuscular HGB Conc 32.8 g/dL (30-55); Mean Corpuscular Hemoglobin 31.9 pg (27-33); Mean Corpuscular Volume 97.2 fl (85-98); Nucleated Red Blood Cells % 0 %; Platelet Count 156 10^3/cmm (157-399); Red Blood Count 4.36 10^6/uL (3.85-5.65); White Blood Count 6.39 10^3/uL (3.29-11.43)
[2025-01-06 10:36] LABS: Alanine Aminotransferase 14 U/L (0-33); Albumin Level 4.3 g/dL (3.5-5.2); Alkaline Phosphatase 109 U/L (35-105); Anion Gap 17.1 (5-19); Aspartate Amino Transferase 23 U/L (0-32); Blood Urea Nitrogen 11 mg/dL (8-23); Calcium 9.6 mg/dL (8.5-10.5); Carbon Dioxide 26 mmol/L (22-29); Chloride 101 mmol/L (98-107); Creatinine Clr Calc Pharmacy 78.8129; Globulin 2.8 g/dL (1.3-4.6); Glucose 128 mg/dL (65-115); Osmolality Calculated 291 mOsm/kg (285-295); Potassium 4.1 mmol/L (3.5-5.1); Sodium 140 mmol/L (136-145); Thyroid Stimulating Hormone 1.44 uIU/mL (0.27-4.20); Total Protein 7.1 g/dL (6.6-8.7)
[2025-01-06] MEDS: nivolumab 480 MG in sodium chloride 0.9% 250 ML 596 MG IV (11:13)
[2025-01-06 12:10] VITALS: BP 116/76; PULSE 57; RESP 16; TEMP 36.3; O2SAT 95
== END 2025-01-06 23:59 | disposition home or self-care (01) ==
PROVIDERS: Nurse Practitioner Family; PCP Family Medicine; Visit Provider Internal Medicine Medical Oncology
DX: Z51.12 Encounter for antineoplastic immunotherapy (principal); C20 Malignant neoplasm of rectum; C77.9 Secondary and unspecified malignant neoplasm of lymph node, unspecified; R03.0 Elevated blood-pressure reading, without diagnosis of hypertension; Z79.620 Long term (current) use of immunosuppressive biologic; Z87.891 Personal history of nicotine dependence; Z79.899 Other long term (current) drug therapy
CPT/HCPCS: 80053; 84443; 85025; 96413; 99214; A4222; J7050; J9299

== ENCOUNTER 2025-02-04 07:54 | Oncology outpatient (recurring) (ONCR) | payer MEDICARE, SELFPAY ==
[2025-02-04] MEDS: alteplase 1 mg/mL SDV 2 mL 2 MG INTRACATH (08:24)
[2025-02-04 08:39] LABS: Hematocrit 45.7 % (36-47); Hemoglobin 14.50 g/dL (11.27-16.99); Mean Corpuscular HGB Conc 31.7 g/dL (30-55); Mean Corpuscular Hemoglobin 32.8 pg (27-33); Mean Corpuscular Volume 103.4 fl (85-98); Nucleated Red Blood Cells % 0 %; Platelet Count 149 10^3/cmm (157-399); Red Blood Count 4.42 10^6/uL (3.85-5.65); White Blood Count 5.53 10^3/uL (3.29-11.43)
[2025-02-04 09:10] LABS: Carcinoembryonic Antigen 3.8 ng/mL (0.0-4.7); Free T4 Free Thyroxine 1.28 ng/dL (0.82-1.77); Thyroid Stimulating Hormone 1.78 uIU/mL (0.27-4.20)
[2025-02-04 09:21] LABS: Alanine Aminotransferase 14 U/L (0-33); Albumin Level 4.2 g/dL (3.5-5.2); Alkaline Phosphatase 95 U/L (35-105); Anion Gap 17.2 (5-19); Aspartate Amino Transferase 23 U/L (0-32); Blood Urea Nitrogen 14 mg/dL (8-23); Calcium 9.1 mg/dL (8.5-10.5); Carbon Dioxide 25 mmol/L (22-29); Chloride 101 mmol/L (98-107); Creatinine Clr Calc Pharmacy 67.9406; Globulin 2.8 g/dL (1.3-4.6); Glucose 91 mg/dL (65-115); Osmolality Calculated 288 mOsm/kg (285-295); Potassium 4.2 mmol/L (3.5-5.1); Sodium 139 mmol/L (136-145); Total Protein 7.0 g/dL (6.6-8.7)
[2025-02-04] MEDS: nivolumab 480 MG in sodium chloride 0.9% 250 ML 596 MG IV (10:12)
== END 2025-02-04 23:59 | disposition home or self-care (01) ==
PROVIDERS: PCP Family Medicine; Visit Provider Internal Medicine Medical Oncology
DX: Z51.12 Encounter for antineoplastic immunotherapy (principal); C20 Malignant neoplasm of rectum; C77.2 Secondary and unspecified malignant neoplasm of intra-abdominal lymph nodes; U07.1 COVID-19; R03.0 Elevated blood-pressure reading, without diagnosis of hypertension; Z92.3 Personal history of irradiation; Z79.899 Other long term (current) drug therapy; Z87.891 Personal history of nicotine dependence
CPT/HCPCS: 36415; 36593; 80053; 82378; 84439; 84443; 84481; 85025; 96413; 99214; A4222; J2997; J7050; J9299

== ENCOUNTER 2025-03-11 08:47 | Oncology outpatient (recurring) (ONCR) | payer MEDICARE, SELFPAY ==
[2025-03-11] MEDS: alteplase 1 mg/mL SDV 2 mL 2 MG INTRACATH (09:05)
[2025-03-11 09:26] LABS: Hematocrit 42.3 % (36-47); Hemoglobin 14.10 g/dL (11.27-16.99); Mean Corpuscular HGB Conc 33.3 g/dL (30-55); Mean Corpuscular Hemoglobin 32.9 pg (27-33); Mean Corpuscular Volume 98.6 fl (85-98); Nucleated Red Blood Cells % 0 %; Platelet Count 135 10^3/cmm (157-399); Red Blood Count 4.29 10^6/uL (3.85-5.65); White Blood Count 4.31 10^3/uL (3.29-11.43)
[2025-03-11 10:13] LABS: Alanine Aminotransferase 13 U/L (0-33); Albumin Level 4.4 g/dL (3.5-5.2); Alkaline Phosphatase 91 U/L (35-105); Anion Gap 14.0 (5-19); Aspartate Amino Transferase 19 U/L (0-32); Blood Urea Nitrogen 10 mg/dL (8-23); Calcium 9.4 mg/dL (8.5-10.5); Carbon Dioxide 28 mmol/L (22-29); Chloride 102 mmol/L (98-107); Creatinine Clr Calc Pharmacy 66.8139; Globulin 2.7 g/dL (1.3-4.6); Glucose 84 mg/dL (65-115); Osmolality Calculated 288 mOsm/kg (285-295); Potassium 4.0 mmol/L (3.5-5.1); Sodium 140 mmol/L (136-145); Thyroid Stimulating Hormone 1.98 uIU/mL (0.27-4.20); Total Protein 7.1 g/dL (6.6-8.7)
[2025-03-11] MEDS: nivolumab 480 MG in sodium chloride 0.9% 250 ML 596 MG IV (11:31)
[2025-03-11 12:23] VITALS: BP 131/80; PULSE 76; TEMP 36.3; O2SAT 97
== END 2025-03-11 23:59 | disposition home or self-care (01) ==
PROVIDERS: Nurse Practitioner Family; PCP Family Medicine; Visit Provider Internal Medicine Medical Oncology
DX: Z51.12 Encounter for antineoplastic immunotherapy (principal); C20 Malignant neoplasm of rectum; C77.2 Secondary and unspecified malignant neoplasm of intra-abdominal lymph nodes; R03.0 Elevated blood-pressure reading, without diagnosis of hypertension; Z79.899 Other long term (current) drug therapy; Z79.620 Long term (current) use of immunosuppressive biologic; Z92.3 Personal history of irradiation; Z87.891 Personal history of nicotine dependence
CPT/HCPCS: 36415; 36593; 80053; 84443; 85025; 96413; 99214; A4222; J2997; J7050; J9299

== ENCOUNTER 2025-04-08 08:26 | Oncology outpatient (recurring) (ONCR) | payer MEDICARE, SELFPAY ==
[2025-04-08 08:52] LABS: Hematocrit 41.3 % (36-47); Hemoglobin 13.70 g/dL (11.27-16.99); Mean Corpuscular HGB Conc 33.2 g/dL (30-55); Mean Corpuscular Hemoglobin 32.5 pg (27-33); Mean Corpuscular Volume 98.1 fl (85-98); Nucleated Red Blood Cells % 0 %; Platelet Count 137 10^3/cmm (157-399); Red Blood Count 4.21 10^6/uL (3.85-5.65); White Blood Count 3.71 10^3/uL (3.29-11.43)
[2025-04-08 09:15] LABS: Alanine Aminotransferase 12 U/L (0-33); Albumin Level 4.3 g/dL (3.5-5.2); Alkaline Phosphatase 87 U/L (35-105); Aspartate Amino Transferase 23 U/L (0-32); Blood Urea Nitrogen 8 mg/dL (8-23); Calcium 9.1 mg/dL (8.5-10.5); Carbon Dioxide 24 mmol/L (22-29); Chloride 101 mmol/L (98-107); Globulin 2.7 g/dL (1.3-4.6); Glucose 95 mg/dL (65-115); Osmolality Calculated 284 mOsm/kg (285-295); Sodium 138 mmol/L (136-145); Total Protein 7.0 g/dL (6.6-8.7)
[2025-04-08 09:16] LABS: Anion Gap 17.1 (5-19); Potassium 4.1 mmol/L (3.5-5.1)
[2025-04-08 09:20] LABS: Thyroid Stimulating Hormone 1.60 uIU/mL (0.27-4.20)
[2025-04-08] MEDS: nivolumab 480 MG in sodium chloride 0.9% 250 ML 596 MG IV (10:20)
[2025-04-08 11:05] VITALS: BP 109/72; PULSE 84; RESP 17; TEMP 36.1; O2SAT 98
== END 2025-04-08 23:59 | disposition home or self-care (01) ==
PROVIDERS: Internal Medicine Medical Oncology; PCP Family Medicine; Visit Provider Nurse Practitioner Family
DX: Z51.12 Encounter for antineoplastic immunotherapy (principal); C20 Malignant neoplasm of rectum; C78.6 Secondary malignant neoplasm of retroperitoneum and peritoneum; R03.0 Elevated blood-pressure reading, without diagnosis of hypertension; M54.50 Low back pain, unspecified; Z92.3 Personal history of irradiation; Z87.891 Personal history of nicotine dependence; Z79.620 Long term (current) use of immunosuppressive biologic; Z79.899 Other long term (current) drug therapy
CPT/HCPCS: 80053; 84443; 85025; 96413; 99214; A4222; J7050; J9299